=== PATIENT | male | born 1965 | race Caucasian/White ===

== ENCOUNTER 2017-03-19 16:11 | Inpatient (IN) | payer MEDICAID, OTHER ==
[~2017-03-19] VITALS: Ht 180.3 cm; Wt 135.1 kg
[2017-03-19] VITALS (16 sets, daily range): BP systolic 126–191; BP diastolic 78–120; PULSE 71–102; RESP 22–28; TEMP 98.6; Ht 180.3 cm; Wt 135.1 kg
[2017-03-19 16:43] LABS: AADO2 Arterial 70.1 mmHg (7.0-24.0); Allen Test ACCEPTAB; Arterial Base Excess 0.9 mmol/L (-3.0-3); Arterial COHb 3.3 % (0.0-3.0); Arterial Fraction of Oxyhgb 88.7 % (93.0-99.0); Arterial HCO3 31.6 mmol/L (22.0-26.0); Arterial MetHb 0.3 % (0.0-1.5); MODE NASAL CANNULA
[2017-03-19 16:48] LABS: BASOPHIL # 0.1 10^3/ul (0.0-0.1); BASOPHILS % 1.3 % (0.0-2.0); EOSINOPHILS # 0.2 10^3/ul (0.0-0.5); EOSINOPHILS % 3.6 % (0.0-7.0); HEMATOCRIT 47.1 % (42.0-52.0); LYMPHOCYTES # 1.4 10^3/ul (0.8-2.9); LYMPHOCYTES % 21.1 % (15.0-51.0); MEAN CORPUSCULAR HEMOGLOBIN 29.7 pg (29.0-33.0); MEAN CORPUSCULAR HGB CONC 31.8 g/dl (32.0-37.0); MEAN CORPUSCULAR VOLUME 93.3 fl (82.0-101.0); MEAN PLATELET VOLUME 11.4 fl (7.4-10.4); MONOCYTE # 0.3 10^3/ul (0.3-0.9); MONOCYTES % 5.1 % (0.0-11.0); NEUTROPHIL # 4.6 10^3/ul (1.6-7.5); NEUTROPHILS % 68.6 % (39.0-77.0); PLATELET COUNT 219 10^3/UL (140-415); RED BLOOD COUNT 5.05 10^6/ul (4.70-6.10); RED CELL DISTRIBUTION WIDTH 14.2 % (11.5-14.5); WHITE BLOOD COUNT 6.7 10^3/ul (4.8-10.8)
[2017-03-19 17:03] LABS: CALCIUM 8.5 mg/dl (8.4-10.2); CREATININE 2.66 mg/dl (0.61-1.24); POTASSIUM 4.5 mmol/L (3.5-5.1)
--- NOTE | 2017-03-19 17:41 | ERA ---
ER Documentation Chief Complaint Date/Time DATE: 03/19/17 TIME: 17:37 Chief Complaint LETHARGIC NOTED BY SISTER, SHORTNESS OF BREATH SATURATING AT 72% HPI This is a 51-year-old male who presents with his sister. It appears the patient has a history of COPD, oxygen dependence, sleep apnea, coronary disease. The patient has been visiting his mother in the hospital for the last several days and has not been using his BiPAP. He was somnolent and difficult to arouse per his sister and a code green was called. The patient was placed in room 1. The patient is very sleepy and difficult to stay awake. He denies any chest pain or significant shortness of breath. He denies any headache. No recent drug or alcohol. ROS All systems reviewed and are negative except as per history of present illness. Allergies Allergies: Coded Allergies: No Known Allergy (Unverified , 03/19/17) PMhx/Soc Hx Respiratory Disorders: Yes (copd, bipap) Hx Alcohol Use: No Hx Substance Use: No Hx Tobacco Use: Yes Smoking Status: Current every day smoker FmHx Family History: No diabetes Physical Exam Vitals Vital Signs Date Time Temp Pulse Resp B/P Pulse Ox O2 Delivery O2 Flow Rate FiO2 03/19/17 16:30 95 97 50 03/19/17 16:27 98.2 94 27 146/67 72 Physical Exam General: Somnolent, arousable but difficult to stay awake Head: Normocephalic, atraumatic. Eyes: Pupils equally reactive, EOM intact ENT: Moist mucous membranes Neck: Supple, no lymphadenopathy Respiratory: Lungs clear bilaterally, no distress Cardiovascular: RRR, no murmurs, rubs, or gallops Abdominal: Soft, non-tender, non-distended, no peritoneal signs : Deferred MSK: Chronic venous stasis dermatitis, bilateral lower extremity swelling it appears to be chronic, 5/5 strength Neurologic: Alert and oriented but difficult examination, moving all extremities , normal speech, no focal weakness, no cerebellar signs Skin: No rash Psych: Normal mood Result Diagram: 03/19/17 1640 03/19/17 1640 Results 24 hrs Laboratory Tests Test 03/19/17 16:13 03/19/17 16:40 03/19/17 16:41 Blood Gas Specimen Source Blood arterial Arterial Blood Date Drawn 03/19/2017 4:32:23 PM Arterial Blood pH (Temp corrected) 7.215 Arterial Blood pCO2 (Temp correct) 79.8mmhg Arterial Blood pO2 (Temp corrected) 72.0mmHG Arterial Blood HCO3 31.6mmol/L Arterial Blood Base Excess 0.9mmol/L Arterial Blood Oxygen Saturation 92.0mmHG Luis Armando Test ACCEPTAB Arterial Blood Gas Puncture Site Right Radial Arterial Blood Carboxyhemoglobin 3.3% Arterial Blood Methemoglobin 0.3% Blood Gas A-a O2 Differential 70.1mmHg Oxyhemoglobin Percent 88.7% Total Hemoglobin 16.0g/dl Blood Gas Temperature 37.0C Blood Gas Actual Respiration Rate 22 Blood Gas Modality NASAL CANNULA FiO2 33.0% Blood Gas Critical Value Read Back Dr. Velvet Shi Blood Gas Notified Whom Leander ARCINIEGA Blood Gas Notified Time 03/19/2017 4:43:34 PM White Blood Count 6.710^3/ul Red Blood Count 5.0510^6/ul Hemoglobin 15.0g/dl Hematocrit 47.1% Mean Corpuscular Volume 93.3fl Mean Corpuscular Hemoglobin 29.7pg Mean Corpuscular Hemoglobin Concent 31.8g/dl Red Cell Distribution Width 14.2% Platelet Count 03930^3/UL Mean Platelet Volume 11.4fl Neutrophils % 68.6% Lymphocytes % 21.1% Monocytes % 5.1% Eosinophils % 3.6% Basophils % 1.3% Nucleated Red Blood Cells % 0.0/100WBC Neutrophils # 4.610^3/ul Lymphocytes # 1.410^3/ul Monocytes # 0.310^3/ul Eosinophils # 0.210^3/ul Basophils # 0.110^3/ul Nucleated Red Blood Cells # 0.010^3/ul Sodium Level 145mmol/L Potassium Level 4.5mmol/L Chloride Level 102mmol/L Carbon Dioxide Level 32mmol/L Anion Gap 16 Blood Urea Nitrogen 23mg/dl Creatinine 2.66mg/dl Glucose Level 124mg/dl Calcium Level 8.5mg/dl Troponin I 0.063ng/ml Bedside Glucose 118mg/dL [facility] EKG, MONITORS, & DIAGNOSTIC IMAGING: EKG: I reviewed and interpreted a 12-lead EKG. Rhythm: Normal sinus rhythm Ectopy: None Intervals: No abnormalities ST segments: No elevations or depressions T waves: No contiguous inversions Chest x-ray: I reviewed and interpreted a 1 view of the chest Mediastinum: No enlargement Cardiac silhouette: No cardiomegaly Airspace: Clear lung sellers bilaterally without evidence of pneumothorax Bones: No evidence of fracture LAB INTERPRETATION: Negative troponin, hypercarbic respiratory acidosis MEDICAL DECISION MAKING: The patient presents with somnolence and lack of CPAP at home. His clinical exam is very consistent with hypercarbic respiratory failure and likely CO2 narcosis. A stat ABG was obtained and the patient was emergently placed on positive pressure ventilation. The patient is tolerating positive pressure ventilation well. The patient does not exhibit any signs or symptoms concerning for intoxication, intracranial hemorrhage, ACS. Laboratory testing initiated to facilitate hospitalization but low concern for these processes. ER COURSE: The patient seems to be tolerating positive pressure ventilation well. Repeat ABG to be obtained after clinical improvement. The patient will benefit from ICU level care to monitor his respiratory and mental status. I kept the patient and/or family informed of laboratory and diagnostic imaging results throughout the emergency room course. DISPOSITION PLAN: Intensive care unit placement for management of hypercarbic respiratory failure CONSULTATION: Accepting care team and consultations: I discussed the current laboratory data, diagnostic imaging and emergency care provided. Admitting team: Dr. Figueroa Admitting team indication: Insurance directed Critical Care Note: Total time: 57 minutes Indication/Organ System Threat: Hypercarbic respiratory failure I spent the above amount of critical care time with the patient, not including billable procedures. This included chart review, consultations, repeat bedside evaluations, and titration of appropriate medications to prevent cardiopulmonary or respiratory collapse. Departure Diagnosis: Primary Impression: Acute hypercapnic respiratory failure Additional Impressions: Acute encephalopathy Chronic renal insufficiency Qualified Code: N18.9 - Chronic renal insufficiency, unspecified stage Condition: Serious MUKESH SHI MD Mar 19, 2017 17:41
--- NOTE | 2017-03-19 18:22 | HP ---
Date/Time of Note Date/Time of Note DATE: 03/19/17 TIME: 18:22 Assessment/Plan VTE Prophylaxis VTE Prophylaxis Intervention: SCD's Assessment/Plan Assessment/Plan 51 yo M with obesity, DONALD on CPAP presents with somnolence/metabolic encephalopathy from CO2 narcosis in setting of CPAP nonadherence x 2 days plan continuous bipap and monitoring in ICU unable to obtain home meds list at this time NPO pending improvement in mentation Cr elevation: unclear if SHERINE +/- CKD check urine and urine lytes recheck labs in AM. if pt more awake will hopefully be able to provide more hx check renal US defer fluid challenge given tendency towards hypertension dvt prophx critical care time: 45 minutes HPI/ROS Admit Date/Time Admit Date/Time Hx of Present Illness hx obtained from ER/chart as pt quite sleepy at time of my attempted eval 51 yo M with pmhx DONALD supposed to be on CPAP presents with somnolence. Slept away from home past 2 nights and didn't bring his CPAP. In ER found to have significant respiratory acidosis, continuous BiPap started PMH/Family/Social Past Medical History DONALD on CPAP obesity ?CAD Social History Smoking Status: Current every day smoker Exam/Review of Systems Vital Signs Vitals Vital Signs Date Time Temp Pulse Resp B/P Pulse Ox O2 Delivery O2 Flow Rate FiO2 03/19/17 18:12 99 22 224/122 100 BIPAP 03/19/17 16:30 50 03/19/17 16:27 98.2 Exam Exam sleepy, sitting up in bed, follows some commands wearing bipap mmm no mrg +?sternotomy scar in mid chest lungs clear abd soft no rashes no le edema labs reviewed. respiratory acidosis with insufficient compensation Cr 2.6, baseline unk Labs Result Diagram: 03/19/17 1640 03/19/17 1640 Medications Medications Current Medications Hydralazine HCl (Apresoline) 20 mg ONCE ONCE IV ; Start 03/19/17 at 18:30; Stop 03/19/17 at 18:31 Acetaminophen (Tylenol Liquid) 650 mg Q6H PRN PO PAIN LEVEL 1-3 OR FEVER; Start 03/19/17 at 18:30; Status UNV Acetaminophen/ Hydrocodone Bitart ([place] (5/325)) 1 tab Q6H PRN PO PAIN LEVEL 4 -6; Start 03/19/17 at 18:30; Status UNV Docusate Sodium (Colace) 100 mg Q12H PRN PO CONSTIPATION; Start 03/19/17 at 18: 30; Status UNV Enoxaparin Sodium (Lovenox) 40 mg DAILY SC ; Start 03/20/17 at 09:00; Status UNV CHARMAINE REY MD Mar 19, 2017 18:22
[2017-03-19] MEDS ORDERED: ACETAMINOPHEN 650MG/20.3ML CUP PO PRN (18:30)
[2017-03-19] MEDS ORDERED: DOCUSATE SODIUM 100 MG CAP PO PRN (18:30)
[2017-03-19] MEDS ORDERED: FUROSEMIDE 40 MG INJ IV ONE (18:30)
[2017-03-19] MEDS ORDERED: NITROGLYCERIN 2% 1 GM OINT PKT TD ONE (18:30)
[2017-03-19] MEDS ORDERED: HYDROCODONE/APAP (5/325) TAB PO PRN (18:30)
[2017-03-19] MEDS ORDERED: hydrALAzine 20 MG INJ IV ONE (18:30)
[2017-03-19 18:56] LABS: AADO2 Arterial 69.9 mmHg (7.0-24.0); Allen Test ACCEPTAB; Arterial Base Excess 0.9 mmol/L (-3.0-3); Arterial COHb 2.8 % (0.0-3.0); Arterial Fraction of Oxyhgb 94.2 % (93.0-99.0); Arterial HCO3 30.1 mmol/L (22.0-26.0); Arterial MetHb 0.4 % (0.0-1.5); Arterial Total Hemglobin 16.7 g/dl (12.0-18.0); Blood Gas IEPAP 20/10; MODE MASK - BIPAP
--- NOTE | 2017-03-19 19:00 | RADRPT ---
PROCEDURE: XR Chest. CLINICAL INDICATION: Dyspnea TECHNIQUE: AP Portable chest. COMPARISON: None available FINDINGS: The soft tissues and bones are remarkable for status post median sternotomy and prior heart surgery. Moderate cardiomegaly and cardiogenic pulmonary venous hypertension is present. Incomplete evalua tion of the left lateral chest wall is noted. The appearance of obscuration of the left hemidiaphra gm is noted which may represent left pleural effusion or overlying soft tissue. No pneumothorax is present. IMPRESSION: 1. Status post median sternotomy and prior heart surgery. 2. Moderate cardiomegaly and cardiogenic pulmonary venous hypertension. 3. Left lower lobe atelectasis or consolidation. 4. Left pleural effusion versus soft tissue obscuring left lateral chest wall and costophrenic angl e. Recommend PA and lateral chest x-ray when the patient can tolerate. RPTAT: HDC .Cynthia Piper MD, Date Time Electronically viewed and signed by .Cynthia Piper MD, on 03/19/2017 18:59 .C/
[2017-03-19] MEDS ORDERED: NITROGLYCERIN 50 MG/D5W (PMX) 250 ML IV STA (19:02)
--- NOTE | 2017-03-19 19:25 | RADRPT ---
PROCEDURE: Retroperitoneal US. CLINICAL INDICATION: Renal insufficiency TECHNIQUE: Multiple sonographic images of the kidneys and retroperitoneum were obtained. The imag es were reviewed on a PACS workstation. COMPARISON: No prior studies are available for comparison. FINDINGS: Limited study due to the patient's body habitus. The kidneys are normal in size, contour, cortical thickness and cortical echogenicity. The right kidney measures 12.5 cm. The left kidney measures 12.1 cm. No kidney stones are visualized. There is no evidence for hydronephrosis. The urinary bladder is normal. RPTAT: AA IMPRESSION: Unremarkable retroperitoneal ultrasound. Limited study due to the patient's body habitus. .Judah Arceo MD, MD Date Time Electronically viewed and signed by .Judah Arceo MD, MD on 03/19/2017 19:24 .S/
[2017-03-19 19:50] LABS: Allen Test ACCEPTAB; Arterial Base Excess 2.1 mmol/L (-3.0-3); Arterial COHb 2.4 % (0.0-3.0); Arterial Fraction of Oxyhgb 94.5 % (93.0-99.0); Arterial HCO3 30.7 mmol/L (22.0-26.0); Arterial MetHb 0.4 % (0.0-1.5); Arterial Total Hemglobin 16.6 g/dl (12.0-18.0); Blood Gas IEPAP 20/10; MODE MASK - BIPAP
[2017-03-19] MEDS ORDERED: LOSA50TA6 PO (20:13)
[2017-03-19] MEDS ORDERED: FURO40TA4 PO (20:13)
[2017-03-19] MEDS ORDERED: GLIP5TAB13 PO (20:13)
[2017-03-19] MEDS ORDERED: CLOP75TA27 PO (20:14)
[2017-03-19] MEDS ORDERED: CARV25TA79 PO (20:14)
[2017-03-19] MEDS ORDERED: HYDR-3671 PO (20:14)
[2017-03-19] MEDS ORDERED: ISOSORBIDE PO (20:16)
[2017-03-20] VITALS (51 sets, daily range): BP systolic 115–165; BP diastolic 62–145; PULSE 63–106; RESP 12–30
[2017-03-20] LABS: AADO2 Arterial 80.8 mmHg (7.0-24.0); Allen Test ACCEPTAB; Arterial Base Excess 4.4 mmol/L (-3.0-3); Arterial COHb 1.9 % (0.0-3.0); Arterial Fraction of Oxyhgb 89.3 % (93.0-99.0); Arterial HCO3 32.1 mmol/L (22.0-26.0); Arterial MetHb 0.4 % (0.0-1.5); Arterial Total Hemglobin 15.1 g/dl (12.0-18.0); Blood Gas IEPAP 20/10; Blood Gas PS 10; MODE MASK - BIPAP
[2017-03-20] MEDS ORDERED: hydrALAzine 20 MG INJ IV PRN
[2017-03-20 03:09] LABS: ADD UMIC YES; UR ASCORBIC ACID NEGATIVE (NEGATIVE); UR BILIRUBIN (Dip) NEGATIVE (NEGATIVE); UR BLOOD (Dip) NEGATIVE (NEGATIVE); UR CLARITY CLEAR (CLEAR); UR COLOR STRAW (YELLOW); UR GLUCOSE (Dip) 1+ mg/dL (NEGATIVE); UR KETONES (Dip) NEGATIVE (NEGATIVE); UR LEUKOCYTE ESTERASE (Dip) NEGATIVE Leu/ul (NEGATIVE); UR NITRITE (Dip) NEGATIVE (NEGATIVE); UR RBC 0 /HPF (0-5); UR SPECIFIC GRAVITY (Dip) 1.009 (1.003-1.030); UR TOTAL PROTEIN (Dip) 3+ mg/dl (NEGATIVE); UR UROBILINOGEN (Dip) NEGATIVE (NEGATIVE)
[2017-03-20 05:42] LABS: CREATININE 2.54 mg/dl (0.61-1.24); POTASSIUM 4.3 mmol/L (3.5-5.1)
[2017-03-20 06:56] LABS: PHOSPHORUS 4.4 mg/dl (2.5-4.9)
[2017-03-20] MEDS: ENOXAPARIN 40 MG/0.4 ML SYG SC SCH (09:06)
[2017-03-20] MEDS: FUROSEMIDE 40 MG INJ IV SCH ×2 (09:08→17:15)
[2017-03-20] MEDS ORDERED: ALBUTEROL/IPRATROPIUM (NEB) 3 ML AMP HHN PRN (10:00)
--- NOTE | 2017-03-20 13:10 | PN ---
Date/Time of Note Date/Time of Note DATE: 03/20/17 TIME: 13:08 Assessment/Plan VTE Prophylaxis VTE Prophylaxis Intervention: SCD's Lines/Catheters IV Catheter Type (from Nrsg): Saline Lock Urinary Cath still in place: Yes Reason Cath still needed: other (indicate) (need stricts Is/oS) Assessment/Plan Assessment/Plan 51 yo M with obesity, DONALD on CPAP presents with somnolence/metabolic encephalopathy from CO2 narcosis in setting of CPAP nonadherence x 2 days and with likely acute on chronic systolic heart failure plan continuous bipap and monitoring in ICU NPO pending improvement in mentation cont high dose IV lasix for likely acute on chronic HF TTE ordered, results pending Cr elevation: suspect SHERINE on CKD TOOTIE unremarkable Need to check Fe Urea not FeNa as patient on lasix at home CAD hx: resume home arb, bb, isodril, plavix DM2 hx: hold SFU. check a1c. SSI with accuchecks dvt prophx critical care time: 45 minutes Subjective 24 Hr Interval Summary Free Text/Dictation Pt still somnolent and requiring continuous bipap. pH this AM significantly improved however. Also home meds list reviewed. Pt on CHF/CAD regimen at home Exam/Review of Systems Vital Signs Vitals Vital Signs Date Time Temp Pulse Resp B/P Pulse Ox O2 Delivery O2 Flow Rate FiO2 03/20/17 12:00 98.6 79 26 153/82 96 BIPAP 03/20/17 05:00 40 Intake and Output 03/19/17 03/19/17 03/20/17 15:00 23:00 07:00 Output Total 300 ml 450 ml Balance -300 ml -450 ml Exam nad, wearing bipap decreased breath sounds no mrg abd soft no rashes +LE edema Results Result Diagram: 03/19/17 1640 03/20/17 0400 Results 24 hrs Laboratory Tests Test 03/19/17 16:13 03/19/17 16:40 03/19/17 16:41 03/19/17 18:29 Blood Gas Specimen Source Blood arterial Blood arterial Arterial Blood Date Drawn 03/19/2017 4:32:23 PM 03/19/2017 6:43:26 PM Arterial Blood pH (Temp corrected) 7.215 *L 7.269 *L Arterial Blood pCO2 (Temp correct) 79.8 H 67.2 H Arterial Blood pO2 (Temp corrected) 72.0 L 101.5 H Arterial Blood HCO3 31.6 H 30.1 H Arterial Blood Base Excess 0.9 0.9 Arterial Blood Oxygen Saturation 92.0 L 97.3 Luis Armando Test ACCEPTAB ACCEPTAB Arterial Blood Gas Puncture Site Right Radial Right Radial Arterial Blood Carboxyhemoglobin 3.3 H 2.8 Arterial Blood Methemoglobin 0.3 0.4 Blood Gas A-a O2 Differential 70.1 H 69.9 H Oxyhemoglobin Percent 88.7 L 94.2 Total Hemoglobin 16.0 16.7 Blood Gas Temperature 37.0 37.0 Blood Gas Actual Respiration Rate 22 22 Blood Gas Modality NASAL CANNULA MASK - BIPAP FiO2 33.0 35.0 Blood Gas Critical Value Read Back Cheyenne Carson MD Blood Gas Notified Whom Leander BENTON Blood Gas Notified Time 03/19/2017 4:43:34 PM 03/19/2017 6:56:33 PM White Blood Count 6.7 Red Blood Count 5.05 Hemoglobin 15.0 Hematocrit 47.1 Mean Corpuscular Volume 93.3 Mean Corpuscular Hemoglobin 29.7 Mean Corpuscular Hemoglobin Concent 31.8 L Red Cell Distribution Width 14.2 Platelet Count 219 Mean Platelet Volume 11.4 H Neutrophils % 68.6 Lymphocytes % 21.1 Monocytes % 5.1 Eosinophils % 3.6 Basophils % 1.3 Nucleated Red Blood Cells % 0.0 Neutrophils # 4.6 Lymphocytes # 1.4 Monocytes # 0.3 Eosinophils # 0.2 Basophils # 0.1 Nucleated Red Blood Cells # 0.0 Sodium Level 145 H Potassium Level 4.5 Chloride Level 102 Carbon Dioxide Level 32 H Anion Gap 16 Blood Urea Nitrogen 23 H Creatinine 2.66 H Glucose Level 124 Calcium Level 8.5 Troponin I 0.063 B-Type Natriuretic Peptide 9030 H Bedside Glucose 118 Blood Gas Respiration Rate 15.0 Blood Gas Inspiratory Time 0.9 Blood Gas IPAP/EPAP Ratio 20/10 Test 03/19/17 19:30 03/20/17 00:00 03/20/17 02:27 03/20/17 04:00 Blood Gas Specimen Source Blood arterial Blood arterial Arterial Blood Date Drawn 03/19/2017 7:37:53 PM 03/19/2017 11:45:02 PM Arterial Blood pH (Temp corrected) 7.299 *L 7.339 L Arterial Blood pCO2 (Temp correct) 63.9 H 61.1 H Arterial Blood pO2 (Temp corrected) 97.3 61.3 L Arterial Blood HCO3 30.7 H 32.1 H Arterial Blood Base Excess 2.1 4.4 H Arterial Blood Oxygen Saturation 97.2 91.4 L Luis Armando Test ACCEPTAB ACCEPTAB Arterial Blood Gas Puncture Site Right Radial Right Radial Arterial Blood Carboxyhemoglobin 2.4 1.9 Arterial Blood Methemoglobin 0.4 0.4 Blood Gas A-a O2 Differential 78.0 H 80.8 H Oxyhemoglobin Percent 94.5 89.3 L Total Hemoglobin 16.6 15.1 Blood Gas Temperature 37.0 37.0 Blood Gas Respiration Rate 26.0 26.0 Blood Gas Actual Respiration Rate 28 29 Blood Gas Modality MASK - BIPAP MASK - BIPAP FiO2 35.0 30.0 Blood Gas Inspiratory Time 0.8 Blood Gas IPAP/EPAP Ratio 20/10 20 Blood Gas Critical Value Read Back Cheyenne FONTAINE MD Blood Gas Notified Whom AA UP Blood Gas Notified Time 03/19/2017 7:50:36 PM 03/19/2017 11:59:56 PM Blood Gas Pressure Support 10 Urine Color STRAW Urine Clarity CLEAR Urine pH 6.0 Urine Specific [place] 1.009 Urine Ketones NEGATIVE Urine Nitrite NEGATIVE Urine Bilirubin NEGATIVE Urine Urobilinogen NEGATIVE Urine Leukocyte Esterase NEGATIVE Urine Microscopic RBC 0 Urine Microscopic WBC 0 Urine Hemoglobin NEGATIVE Urine Random Creatinine 59.90 Urine Random Sodium 111 H Urine Glucose 1+ H Urine Total Protein 3+ H Sodium Level 144 Potassium Level 4.3 Chloride Level 103 Carbon Dioxide Level 31 Anion Gap 14 Blood Urea Nitrogen 23 H Creatinine 2.54 H Glucose Level 113 Calcium Level 8.0 L Phosphorus Level 4.4 Magnesium Level 2.0 Medications Medications Current Medications Acetaminophen (Tylenol Liquid) 650 mg Q6H PRN PO PAIN LEVEL 1-3 OR FEVER; Start 03/19/17 at 18:30 Acetaminophen/ Hydrocodone Bitart ([place] (5/325)) 1 tab Q6H PRN PO PAIN LEVEL 4 -6; Start 03/19/17 at 18:30 Docusate Sodium (Colace) 100 mg Q12H PRN PO CONSTIPATION; Start 03/19/17 at 18: 30 Enoxaparin Sodium (Lovenox) 40 mg DAILY SC Last administered on 03/20/17t 09:06 ; Admin Dose 40 MG; Start 03/20/17 at 09:00 Hydralazine HCl (Apresoline) 10 mg Q6H PRN IV ELEVATED BLOOD PRESSURE; Start at 00:00 CHARMAINE REY MD Mar 20, 2017 13:10
[2017-03-20] MEDS: ALBUTEROL/IPRATROPIUM (NEB) 3 ML AMP HHN SCH ×3 (13:50→20:16)
[2017-03-20] MEDS ORDERED: DEXTROSE 50% 50 ML SYRINGE IV PRN ×2 (14:00)
[2017-03-20] MEDS ORDERED: GLUCAGON 1 MG INJ IM PRN (14:00)
[2017-03-20] MEDS ORDERED: GLUCOSE GEL 15 GRAM TUBE BUCCAL PRN (14:00)
[2017-03-20] MEDS ORDERED: GLUCOSE GEL 15 GRAM TUBE PO PRN ×2 (14:00)
[2017-03-20 14:52] LABS: AADO2 Arterial 107.2 mmHg (7.0-24.0); Allen Test ACCEPTAB; Arterial Base Excess 1.9 mmol/L (-3.0-3); Arterial COHb 1.3 % (0.0-3.0); Arterial Fraction of Oxyhgb 92.9 % (93.0-99.0); Arterial HCO3 29.2 mmol/L (22.0-26.0); Arterial MetHb 0.4 % (0.0-1.5); Arterial Total Hemglobin 14.5 g/dl (12.0-18.0); Blood Gas IEPAP 20/10; Blood Gas PS 10; MODE MASK - BIPAP
--- NOTE | 2017-03-20 14:54 | RADRPT ---
Echocardiogram Report Patient Name: BRIDGET DELATORRE Gender: Male Date: 1965 Study Date: 20-Mar-2017 Crna: Gabriella Jackson RDCS Location: 117 Ref. Physician: CHARMAINE REY Quality: Adequate Procedures: Transthoracic echocardiogram with complete 2D, M-Mode, and doppler examination. Indications: elevated BNP and SOB, check EF. 2D/M Mode Doppler Measurement Value Normal Ranges Measurement Value Normal Ranges LVIDd 2D 6.4 3.5 - 5.6 cm AV Peak Td 1.8 m/sec LVIDs 2D 3.9 2.1 - 4.1 cm AV Peak PG 12.7 mmHg LVPWd 2D 1.3 0.6 - 1.1 cm LVOT Peak Td 1.3 m/sec IVSd 2D 1.2 0.6 - 1.1 cm LVOT Peak PG 6.5 mmHg AoR Diam 2D 2.7 2.0 - 3.7 cm MV E Peak Td 1.0 m/sec EDV 2D 208.7 cm3 MV A Peak Td 0.9 m/sec ESV 2D 61.6 cm3 MV E/A 1.2 LA Dimen 2D 5.8 2.3 - 4.0 cm MV Decel Time 173 msec MV Decel [place] 6 MV E/A 1.2 TR Peak Td 3.0 m/sec TR Peak PG 37.0 mmHg RVSP 52.0 mmHg Findings Left Ventricle: Mild concentric left ventricular hypertrophy. Moderate enlargement of left ventricle cavity. Mild to moderate global left ventricular systolic dysfunction. Ejection fraction is visually estimated at 40 %. Right Ventricle: Normal right ventricular size. Normal right ventricular systolic function. Left Atrium: There is moderate enlargement of left atrium. Right Atrium: The right atrium is normal in size. Mitral Valve: Mitral valve leaflets appear mildly thickened. Mild mitral annular calcification. Trace mitral regurgitation. Aortic Valve: Normal appearance of the aortic valve. No significant aortic stenosis or insufficiency. Tricuspid Valve: Normal appearance of the tricuspid valve. Estimated peak PA systolic pressure 57 mmHg. There is mild tricuspid regurgitation. Pulmonic Valve: Normal pulmonic valve appearance. Pericardium: Normal pericardium with no significant pericardial effusion. Aorta: Normal aortic root. IVC: Dilated IVC without respiratory collapse consistent with elevated right atrial pressure. Conclusions 1.Mild concentric left ventricular hypertrophy. Moderate enlargement of left ventricle cavity. Mild to moderate global left ventricular systolic dysfunction. Ejection fraction is visually estimated at 40 %. 2.Normal right ventricular size. Normal right ventricular systolic function. 3.There is moderate enlargement of left atrium. 4.The right atrium is normal in size. 5.Normal appearance of the tricuspid valve. Estimated peak PA systolic pressure 57 mmHg. There is mild tricuspid regurgitation. 6.No significant valvular stenosis or regurgitation seen of remaining visualized valves. 7.Normal pericardium with no significant pericardial effusion. Electronically Signed By: Ronald Grullon 20-Mar-2017 14:54:46 -0700 Patient Name: BRIDGET DELATORRE Study Date: 20-Mar-2017 [id number]
[2017-03-20] MEDS: INSULIN ASPART [NOVOLOG] 3 ML PEN SC SCH ×2 (17:00→20:31)
[2017-03-20] MEDS ORDERED: hydrALAzine 20 MG INJ ONE (18:02)
[2017-03-20] MEDS: LOSARTAN 50 MG TAB PO SCH (20:27)
[2017-03-21] VITALS (22 sets, daily range): BP systolic 110–161; BP diastolic 61–107; PULSE 55–78; RESP 13–26
[2017-03-21] MEDS: INSULIN ASPART [NOVOLOG] 3 ML PEN SC SCH (01:00)
[2017-03-21] MEDS: ALBUTEROL/IPRATROPIUM (NEB) 3 ML AMP HHN SCH ×6 (01:24→21:18)
[2017-03-21] MEDS ORDERED: ACCU-CHEK XX SCH (02:00)
[2017-03-21] MEDS: FUROSEMIDE 40 MG INJ IV SCH ×2 (06:24→17:36)
[2017-03-21 06:39] LABS: CALCIUM 8.2 mg/dl (8.4-10.2); CREATININE 3.06 mg/dl (0.61-1.24); POTASSIUM 4.2 mmol/L (3.5-5.1)
[2017-03-21] MEDS ORDERED: INSULIN ASPART [NOVOLOG] 3 ML PEN SC SCH (07:05)
[2017-03-21] MEDS: Insulin NOVOLOG SS MILD Algorithm (SS with meals and bedtime) SC SCH ×4 (07:35→21:00)
[2017-03-21 07:56] LABS: AADO2 Arterial 71.8 mmHg (7.0-24.0); Allen Test ACCEPTAB; Arterial Base Excess 6.8 mmol/L (-3.0-3); Arterial COHb 0.8 % (0.0-3.0); Arterial Fraction of Oxyhgb 88.7 % (93.0-99.0); Arterial MetHb 0.4 % (0.0-1.5); Arterial Total Hemglobin 14.3 g/dl (12.0-18.0); MODE NASAL CANNULA
[2017-03-21] MEDS: ISOSORBIDE MONONITRATE(SR)60 MG TAB PO SCH (09:11)
[2017-03-21] MEDS: LOSARTAN 50 MG TAB PO SCH ×2 (09:11→21:20)
[2017-03-21] MEDS: CLOPIDOGREL 75 MG TAB PO SCH (09:11)
[2017-03-21] MEDS: ENOXAPARIN 40 MG/0.4 ML SYG SC SCH (09:14)
--- NOTE | 2017-03-21 17:47 | PN ---
Date/Time of Note Date/Time of Note DATE: 03/21/17 TIME: 17:46 Assessment/Plan VTE Prophylaxis VTE Prophylaxis Intervention: SCD's Lines/Catheters IV Catheter Type (from Nrsg): Saline Lock Urinary Cath still in place: Yes Reason Cath still needed: other (indicate) (will dc) Assessment/Plan Assessment/Plan 51 yo M with obesity, DONALD on CPAP presents with somnolence/metabolic encephalopathy from CO2 narcosis in setting of CPAP nonadherence x 2 days and with likely acute on chronic systolic heart failure plan CPAP qHS cardiac diet change lasix to PO TTE with EF 40%. Cr elevation: suspect SHERINE on CKD TOOTIE unremarkable Given Cr slightly higher, will decrease lasix on this PO converseion CAD hx: resume home arb, bb, isodril, plavix DM2 hx: hold SFU. a1c 7.9. SSI with accuchecks dvt prophx critical care time: 30 minutes xfer from ICU to tele Subjective 24 Hr Interval Summary Free Text/Dictation Pt awake and appropriately interactive this AM. In addition to being without his CPAP past 3 days also didn't have his lasix with him Pt does not know his dry weight Exam/Review of Systems Vital Signs Vitals Vital Signs Date Time Temp Pulse Resp B/P Pulse Ox O2 Delivery O2 Flow Rate FiO2 03/21/17 17:02 69 03/21/17 16:24 2.0 03/21/17 16:22 20 94 Nasal Cannula 03/21/17 15:53 98.9 125/67 03/21/17 05:08 35 Intake and Output 03/20/17 03/20/17 03/21/17 15:00 23:00 07:00 Intake Total 200 ml Output Total 1415 ml 985 ml 415 ml Balance -1415 ml -785 ml -415 ml Exam nad, sitting up in bed no mrg lungs with decreased breath sounds bl bases abd soft LE edema improving Results Result Diagram: 03/19/17 1640 03/21/17 0530 Results 24 hrs Laboratory Tests Test 03/20/17 20:30 03/21/17 01:35 03/21/17 05:30 03/21/17 08:00 Bedside Glucose 195 126 Sodium Level 145 H Potassium Level 4.2 Chloride Level 102 Carbon Dioxide Level 33 H Anion Gap 14 Blood Urea Nitrogen 31 H Creatinine 3.06 H Glucose Level 112 Calcium Level 8.2 L Blood Gas Specimen Source Blood arterial Arterial Blood Date Drawn 03/21/2017 7:48:20 AM Arterial Blood pH (Temp corrected) 7.412 Arterial Blood pCO2 (Temp correct) 53.0 H Arterial Blood pO2 (Temp corrected) 58.0 L Arterial Blood HCO3 33.0 H Arterial Blood Base Excess 6.8 H Arterial Blood Oxygen Saturation 89.8 L Luis Armando Test ACCEPTAB Arterial Blood Gas Puncture Site Right Radial Arterial Blood Carboxyhemoglobin 0.8 Arterial Blood Methemoglobin 0.4 Blood Gas A-a O2 Differential 71.8 H Oxyhemoglobin Percent 88.7 L Total Hemoglobin 14.3 Blood Gas Temperature 37.0 Blood Gas Modality NASAL CANNULA FiO2 27.0 Blood Gas Notified Whom TM Blood Gas Notified Time 03/21/2017 7:55:52 AM Test 03/21/17 08:23 03/21/17 12:18 03/21/17 17:10 Bedside Glucose 117 131 172 Medications Medications Current Medications Acetaminophen (Tylenol Liquid) 650 mg Q6H PRN PO PAIN LEVEL 1-3 OR FEVER; Start 03/19/17 at 18:30 Acetaminophen/ Hydrocodone Bitart ([place] (5/325)) 1 tab Q6H PRN PO PAIN LEVEL 4 -6; Start 03/19/17 at 18:30 Docusate Sodium (Colace) 100 mg Q12H PRN PO CONSTIPATION; Start 03/19/17 at 18: 30 Enoxaparin Sodium (Lovenox) 40 mg DAILY SC Last administered on 03/21/17 09:14 ; Admin Dose 40 MG; Start 03/20/17 at 09:00 Hydralazine HCl (Apresoline) 10 mg Q6H PRN IV ELEVATED BLOOD PRESSURE Last administered on 03/20/17 15:43; Admin Dose 10 MG; Start 03/20/17 at 00:00 Carvedilol (Coreg) 25 mg BID PO Last administered on 03/21/17 09:12; Admin Dose 25 MG; Start 03/20/17 at 21:00 Clopidogrel Bisulfate (plaVIX) 75 mg DAILY PO Last administered on 03/21/17 09 :11; Admin Dose 75 MG; Start 03/21/17 at 09:00 Losartan Potassium (Cozaar) 50 mg BID PO Last administered on 03/21/17 09:11; Admin Dose 50 MG; Start 03/20/17 at 21:00 Isosorbide Mononitrate (Imdur) 240 mg DAILY PO Last administered on 03/21/17t 09:11; Admin Dose 240 MG; Start 03/21/17 at 09:00 Miscellaneous Information 1 ea NOTE XX ; Start 03/20/17 at 14:00 Glucose (Glutose) 15 gm Q15M PRN PO DECREASED GLUCOSE; Start 03/20/17 at 14:00 Glucose (Glutose) 22.5 gm Q15M PRN PO DECREASED GLUCOSE; Start 03/20/17 at 14: 00 Dextrose (D50w Syringe) 25 ml Q15M PRN IV DECREASED GLUCOSE; Start 03/20/17 at 14:00 Dextrose (D50w Syringe) 50 ml Q15M PRN IV DECREASED GLUCOSE; Start 03/20/17 at 14:00 Glucagon (Glucagen) 1 mg Q15M PRN IM DECREASED GLUCOSE; Start 03/20/17 at 14:00 Glucose (Glutose) 15 gm Q15M PRN BUCCAL DECREASED GLUCOSE; Start 03/20/17 at 14 :00 Diagnostic Test (Pha) (Accu-Chek) 1 ea 02 XX ; Start 03/22/17 at 02:00 CHARMAINE REY MD Mar 21, 2017 17:47
[2017-03-22] VITALS (14 sets, daily range): BP systolic 135–153; BP diastolic 70–82; PULSE 65–75; RESP 19–21
[2017-03-22] MEDS: ACCUCHECK AT 2AM (Patients on SS coverage) XX SCH ×2 (02:00→21:58)
[2017-03-22] MEDS: ALBUTEROL/IPRATROPIUM (NEB) 3 ML AMP HHN SCH ×6 (04:49→20:35)
[2017-03-22] MEDS: Insulin NOVOLOG SS MILD Algorithm (SS with meals and bedtime) SC SCH ×4 (07:55→20:50)
[2017-03-22] MEDS: ISOSORBIDE MONONITRATE(SR)60 MG TAB PO SCH (08:44)
[2017-03-22] MEDS: FUROSEMIDE 40 MG TAB PO SCH (08:44)
[2017-03-22] MEDS: CLOPIDOGREL 75 MG TAB PO SCH (08:45)
[2017-03-22] MEDS: LOSARTAN 50 MG TAB PO SCH ×2 (08:45→20:50)
[2017-03-22] MEDS: ENOXAPARIN 40 MG/0.4 ML SYG SC SCH (08:46)
[2017-03-22 09:24] LABS: CALCIUM 8.3 mg/dl (8.4-10.2); CREATININE 2.87 mg/dl (0.61-1.24); POTASSIUM 4.1 mmol/L (3.5-5.1)
--- NOTE | 2017-03-22 13:59 | PN ---
Date/Time of Note Date/Time of Note DATE: 03/22/17 TIME: 13:57 Assessment/Plan VTE Prophylaxis VTE Prophylaxis Intervention: SCD's Lines/Catheters IV Catheter Type (from Nrsg): Saline Lock Urinary Cath still in place: Yes Reason Cath still needed: other (indicate) (not needed) Assessment/Plan Assessment/Plan 51 yo M with obesity, DONALD on CPAP presents with somnolence/metabolic encephalopathy from CO2 narcosis in setting of CPAP nonadherence x 2 days and with likely acute on chronic systolic heart failure plan CPAP qHS cardiac diet cont PO lasix TTE with EF 40%. Cr elevation: suspect SHERINE on CKD TOOTIE unremarkable Cr a little better. Cont current lasix dose CAD hx: resume home arb, bb, isodril, plavix DM2 hx: hold SFU. a1c 7.9. SSI with accuchecks dvt prophx await euvolemia. 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 I have provided [facility] fax # to nurse Subjective 24 Hr Interval Summary Free Text/Dictation Pt uncertain whether or not he actually has a CHF hx. His PCP is Dr Miranda at [facility] in [place]. Also states he was hospitalized at [facility] for something related to his heart but does not recall what it was Exam/Review of Systems Vital Signs Vitals Vital Signs Date Time Temp Pulse Resp B/P Pulse Ox O2 Delivery O2 Flow Rate FiO2 03/22/17 12:33 84 18 95 Nasal Cannula 2.0 03/22/17 11:33 98.4 135/70 03/22/17 01:36 35 Intake and Output 03/21/17 03/21/17 03/22/17 15:00 23:00 07:00 Intake Total 720 ml 250 ml Output Total 1325 ml 650 ml Balance -605 ml -400 ml Exam nad no mrg lungs clear abd soft LEs with chronic venous stasis changes neg negative fluid balance Results Result Diagram: 03/19/17 1640 03/22/17 0659 Results 24 hrs Laboratory Tests Test 03/21/17 17:10 03/21/17 21:06 03/22/17 06:59 03/22/17 07:53 Bedside Glucose 172 137 97 Sodium Level 143 Potassium Level 4.1 Chloride Level 98 Carbon Dioxide Level 34 H Anion Gap 15 Blood Urea Nitrogen 35 H Creatinine 2.87 H Glucose Level 104 Calcium Level 8.3 L Magnesium Level 2.1 Test 03/22/17 11:16 Bedside Glucose 139 Medications Medications Current Medications Acetaminophen (Tylenol Liquid) 650 mg Q6H PRN PO PAIN LEVEL 1-3 OR FEVER; Start 03/19/17 at 18:30 Acetaminophen/ Hydrocodone Bitart ([place] (5/325)) 1 tab Q6H PRN PO PAIN LEVEL 4 -6; Start 03/19/17 at 18:30 Docusate Sodium (Colace) 100 mg Q12H PRN PO CONSTIPATION; Start 03/19/17 at 18: 30 Enoxaparin Sodium (Lovenox) 40 mg DAILY SC Last administered on 03/22/17 08:46 ; Admin Dose 40 MG; Start 03/20/17 at 09:00 Hydralazine HCl (Apresoline) 10 mg Q6H PRN IV ELEVATED BLOOD PRESSURE Last administered on 03/20/17 15:43; Admin Dose 10 MG; Start 03/20/17 at 00:00 Carvedilol (Coreg) 25 mg BID PO Last administered on 03/22/17 08:45; Admin Dose 25 MG; Start 03/20/17 at 21:00 Clopidogrel Bisulfate (plaVIX) 75 mg DAILY PO Last administered on 03/22/17 08 :45; Admin Dose 75 MG; Start 03/21/17 at 09:00 Losartan Potassium (Cozaar) 50 mg BID PO Last administered on 03/22/17 08:45; Admin Dose 50 MG; Start 03/20/17 at 21:00 Isosorbide Mononitrate (Imdur) 240 mg DAILY PO Last administered on 03/22/17 08:44; Admin Dose 240 MG; Start 03/21/17 at 09:00 Miscellaneous Information 1 ea NOTE XX ; Start 03/20/17 at 14:00 Glucose (Glutose) 15 gm Q15M PRN PO DECREASED GLUCOSE; Start 03/20/17 at 14:00 Glucose (Glutose) 22.5 gm Q15M PRN PO DECREASED GLUCOSE; Start 03/20/17 at 14: 00 Dextrose (D50w Syringe) 25 ml Q15M PRN IV DECREASED GLUCOSE; Start 03/20/17 at 14:00 Dextrose (D50w Syringe) 50 ml Q15M PRN IV DECREASED GLUCOSE; Start 03/20/17 at 14:00 Glucagon (Glucagen) 1 mg Q15M PRN IM DECREASED GLUCOSE; Start 03/20/17 at 14:00 Glucose (Glutose) 15 gm Q15M PRN BUCCAL DECREASED GLUCOSE; Start 03/20/17 at 14 :00 Diagnostic Test (Pha) (Accu-Chek) 1 ea 02 XX ; Start 03/22/17 at 02:00 Furosemide (Lasix) 40 mg DAILY PO Last administered on 03/22/17t 08:44; Admin Dose 40 MG; Start 03/22/17 at 09:00 CHARMAINE REY MD Mar 22, 2017 13:59
[2017-03-23] VITALS (16 sets, daily range): BP systolic 108–169; BP diastolic 58–87; PULSE 55–73; RESP 19–21
[2017-03-23] MEDS: ALBUTEROL/IPRATROPIUM (NEB) 3 ML AMP HHN SCH ×6 (01:25→20:02)
[2017-03-23] MEDS: Insulin NOVOLOG SS MILD Algorithm (SS with meals and bedtime) SC SCH ×4 (08:00→20:40)
[2017-03-23] MEDS: LOSARTAN 50 MG TAB PO SCH ×2 (08:15→20:46)
[2017-03-23] MEDS: ISOSORBIDE MONONITRATE(SR)60 MG TAB PO SCH (08:15)
[2017-03-23] MEDS: CLOPIDOGREL 75 MG TAB PO SCH (08:16)
[2017-03-23] MEDS: FUROSEMIDE 40 MG TAB PO SCH (08:16)
[2017-03-23] MEDS: ENOXAPARIN 40 MG/0.4 ML SYG SC SCH (08:19)
[2017-03-23 08:42] LABS: CALCIUM 8.6 mg/dl (8.4-10.2); CREATININE 2.76 mg/dl (0.61-1.24); MAGNESIUM 2.2 mg/dl (1.7-2.5); POTASSIUM 4.3 mmol/L (3.5-5.1)
--- NOTE | 2017-03-23 15:00 | PN ---
Date/Time of Note Date/Time of Note DATE: 03/23/17 TIME: 14:59 Assessment/Plan VTE Prophylaxis VTE Prophylaxis Intervention: other (scds) Lines/Catheters IV Catheter Type (from Nrsg): Saline Lock Urinary Cath still in place: Yes Reason Cath still needed: other (indicate) (not needed) Assessment/Plan Assessment/Plan 51 yo M with obesity, DONALD on CPAP presents with somnolence/metabolic encephalopathy from CO2 narcosis in setting of CPAP nonadherence x 2 days and with likely acute on chronic systolic heart failure plan CPAP qHS cardiac diet cont PO lasix TTE with EF 40%. Cr elevation: suspect SHERINE on CKD TOOTIE unremarkable Cr still improving. Cont current lasix dose CAD hx: cont home arb, bb, isodril, plavix DM2 hx: hold SFU. a1c 7.9. SSI with accuchecks dvt prophx await euvolemia. NU sent to [facility] yesterday to find out if pt has hx CHF Subjective 24 Hr Interval Summary Free Text/Dictation Still dieruesing well. does not know if he has a CHF hx. No records received from [facility]. Exam/Review of Systems Vital Signs Vitals Vital Signs Date Time Temp Pulse Resp B/P Pulse Ox O2 Delivery O2 Flow Rate FiO2 03/23/17 12:37 63 22 93 Nasal Cannula 3.0 03/23/17 11:51 98.2 108/58 03/23/17 03:25 35 Intake and Output 03/22/17 03/22/17 03/23/17 15:00 23:00 07:00 Intake Total 800 ml 250 ml Output Total 900 ml 800 ml Balance -100 ml -550 ml Exam nad, laying in bed no mrg lungs clear abd soft, obese LE edema continues to improve net 5L down since admission Results Result Diagram: 03/19/17 1640 03/23/17 0711 Results 24 hrs Laboratory Tests Test 03/22/17 17:01 03/22/17 20:49 03/23/17 07:11 03/23/17 08:06 Bedside Glucose 146 128 124 Sodium Level 142 Potassium Level 4.3 Chloride Level 100 Carbon Dioxide Level 31 Anion Gap 15 Blood Urea Nitrogen 34 H Creatinine 2.76 H Glucose Level 134 Calcium Level 8.6 Magnesium Level 2.2 Test 03/23/17 11:30 Bedside Glucose 171 Medications Medications Current Medications Acetaminophen (Tylenol Liquid) 650 mg Q6H PRN PO PAIN LEVEL 1-3 OR FEVER; Start 03/19/17 at 18:30 Acetaminophen/ Hydrocodone Bitart ([place] (5/325)) 1 tab Q6H PRN PO PAIN LEVEL 4 -6; Start 03/19/17 at 18:30 Docusate Sodium (Colace) 100 mg Q12H PRN PO CONSTIPATION; Start 03/19/17 at 18: 30 Enoxaparin Sodium (Lovenox) 40 mg DAILY SC Last administered on 03/23/17 08:19 ; Admin Dose 40 MG; Start 03/20/17 at 09:00 Hydralazine HCl (Apresoline) 10 mg Q6H PRN IV ELEVATED BLOOD PRESSURE Last administered on 03/20/17 15:43; Admin Dose 10 MG; Start 03/20/17 at 00:00 Carvedilol (Coreg) 25 mg BID PO Last administered on 03/23/17 08:16; Admin Dose 25 MG; Start 03/20/17 at 21:00 Clopidogrel Bisulfate (plaVIX) 75 mg DAILY PO Last administered on 03/23/17 08 :16; Admin Dose 75 MG; Start 03/21/17 at 09:00 Losartan Potassium (Cozaar) 50 mg BID PO Last administered on 03/23/17 08:15; Admin Dose 50 MG; Start 03/20/17 at 21:00 Isosorbide Mononitrate (Imdur) 240 mg DAILY PO Last administered on 03/23/17 08:15; Admin Dose 240 MG; Start 03/21/17 at 09:00 Miscellaneous Information 1 ea NOTE XX ; Start 03/20/17 at 14:00 Glucose (Glutose) 15 gm Q15M PRN PO DECREASED GLUCOSE; Start 03/20/17 at 14:00 Glucose (Glutose) 22.5 gm Q15M PRN PO DECREASED GLUCOSE; Start 03/20/17 at 14: 00 Dextrose (D50w Syringe) 25 ml Q15M PRN IV DECREASED GLUCOSE; Start 03/20/17 at 14:00 Dextrose (D50w Syringe) 50 ml Q15M PRN IV DECREASED GLUCOSE; Start 03/20/17 at 14:00 Glucagon (Glucagen) 1 mg Q15M PRN IM DECREASED GLUCOSE; Start 03/20/17 at 14:00 Glucose (Glutose) 15 gm Q15M PRN BUCCAL DECREASED GLUCOSE; Start 03/20/17 at 14 :00 Diagnostic Test (Pha) (Accu-Chek) 1 02 XX ; Start 03/22/17 at 02:00 Furosemide (Lasix) 40 mg DAILY PO Last administered on 03/23/17 08:16; Admin Dose 40 MG; Start 03/22/17 at 09:00 CHARMAINE REY MD Mar 23, 2017 15:00
[2017-03-24] VITALS (15 sets, daily range): BP systolic 132–159; BP diastolic 67–82; PULSE 56–74; RESP 16–20
[2017-03-24] MEDS: ALBUTEROL/IPRATROPIUM (NEB) 3 ML AMP HHN SCH ×6 (00:24→20:04)
[2017-03-24] MEDS: ACCUCHECK AT 2AM (Patients on SS coverage) XX SCH (02:00)
[2017-03-24] MEDS: Insulin NOVOLOG SS MILD Algorithm (SS with meals and bedtime) SC SCH ×4 (07:46→21:00)
[2017-03-24 08:47] LABS: CALCIUM 8.4 mg/dl (8.4-10.2); CREATININE 2.65 mg/dl (0.61-1.24); POTASSIUM 4.5 mmol/L (3.5-5.1)
[2017-03-24] MEDS: CLOPIDOGREL 75 MG TAB PO SCH (08:56)
[2017-03-24] MEDS: FUROSEMIDE 40 MG TAB PO SCH (08:56)
[2017-03-24] MEDS: ISOSORBIDE MONONITRATE(SR)60 MG TAB PO SCH (08:56)
[2017-03-24] MEDS: LOSARTAN 50 MG TAB PO SCH ×2 (08:57→21:22)
[2017-03-24] MEDS: ENOXAPARIN 40 MG/0.4 ML SYG SC SCH (08:59)
--- NOTE | 2017-03-24 16:36 | PN ---
Date/Time of Note Date/Time of Note DATE: 03/24/17 TIME: 16:34 Assessment/Plan VTE Prophylaxis VTE Prophylaxis Intervention: SCD's Lines/Catheters IV Catheter Type (from Nrsg): Saline Lock Urinary Cath still in place: Yes Reason Cath still needed: other (indicate) Assessment/Plan Assessment/Plan 51 yo M with obesity, DONALD on CPAP presents with somnolence/metabolic encephalopathy from CO2 narcosis in setting of CPAP nonadherence x 2 days and with likely acute on chronic systolic heart failure plan CPAP qHS cardiac diet cont PO lasix TTE with EF 40%. Cr elevation: suspect SHERINE on CKD TOOTIE unremarkable Cr stable CAD hx: cont home arb, bb, isodril, plavix DM2 hx: hold SFU. a1c 7.9. SSI with accuchecks dvt prophx await euvolemia. NU sent to [place] yesterday to find out if pt has hx CHF anticipate discharge in AM Subjective 24 Hr Interval Summary Free Text/Dictation Still diuresing. Not yet back to baseline. Doesn't like wearing his CPAP but knows he should Exam/Review of Systems Vital Signs Vitals Vital Signs Date Time Temp Pulse Resp B/P Pulse Ox O2 Delivery O2 Flow Rate FiO2 03/24/17 16:18 59 03/24/17 16:07 98.4 16 147/68 93 03/24/17 14:17 21 03/24/17 09:44 Nasal Cannula 3.0 Intake and Output 03/23/17 03/23/17 03/24/17 15:00 23:00 07:00 Intake Total 400 ml Output Total 750 ml Balance -350 ml Exam weight: down >5L since admisison nad, sitting up in bed no mrg lungs clear abd soft no rashes Results Result Diagram: 03/24/17 0721 Results 24 hrs Laboratory Tests Test 03/23/17 17:15 03/23/17 20:29 03/24/17 07:21 03/24/17 07:44 Bedside Glucose 140 120 109 Sodium Level 145 H Potassium Level 4.5 Chloride Level 101 Carbon Dioxide Level 34 H Anion Gap 15 Blood Urea Nitrogen 34 H Creatinine 2.65 H Glucose Level 97 Calcium Level 8.4 Magnesium Level 2.2 Test 03/24/17 11:52 Bedside Glucose 139 Medications Medications Current Medications Acetaminophen (Tylenol Liquid) 650 mg Q6H PRN PO PAIN LEVEL 1-3 OR FEVER; Start 03/19/17 at 18:30 Acetaminophen/ Hydrocodone Bitart ([place] (5/325)) 1 tab Q6H PRN PO PAIN LEVEL 4 -6; Start 03/19/17 at 18:30 Docusate Sodium (Colace) 100 mg Q12H PRN PO CONSTIPATION; Start 03/19/17 at 18: 30 Enoxaparin Sodium (Lovenox) 40 mg DAILY SC Last administered on 03/24/17 08:59 ; Admin Dose 40 MG; Start 03/20/17 at 09:00 Hydralazine HCl (Apresoline) 10 mg Q6H PRN IV ELEVATED BLOOD PRESSURE Last administered on 03/20/17 15:43; Admin Dose 10 MG; Start 03/20/17 at 00:00 Carvedilol (Coreg) 25 mg BID PO Last administered on 03/24/17 08:57; Admin Dose 25 MG; Start 03/20/17 at 21:00 Clopidogrel Bisulfate (plaVIX) 75 mg DAILY PO Last administered on 03/24/17 08 :56; Admin Dose 75 MG; Start 03/21/17 at 09:00 Losartan Potassium (Cozaar) 50 mg BID PO Last administered on 03/24/17 08:57; Admin Dose 50 MG; Start 03/20/17 at 21:00 Isosorbide Mononitrate (Imdur) 240 mg DAILY PO Last administered on 03/24/17 08:56; Admin Dose 240 MG; Start 03/21/17 at 09:00 Miscellaneous Information 1 ea NOTE XX ; Start 03/20/17 at 14:00 Glucose (Glutose) 15 gm Q15M PRN PO DECREASED GLUCOSE; Start 03/20/17 at 14:00 Glucose (Glutose) 22.5 gm Q15M PRN PO DECREASED GLUCOSE; Start 03/20/17 at 14: 00 Dextrose (D50w Syringe) 25 ml Q15M PRN IV DECREASED GLUCOSE; Start 03/20/17 at 14:00 Dextrose (D50w Syringe) 50 ml Q15M PRN IV DECREASED GLUCOSE; Start 03/20/17 at 14:00 Glucagon (Glucagen) 1 mg Q15M PRN IM DECREASED GLUCOSE; Start 03/20/17 at 14:00 Glucose (Glutose) 15 gm Q15M PRN BUCCAL DECREASED GLUCOSE; Start 03/20/17 at 14 :00 Diagnostic Test (Pha) (Accu-Chek) 1 ea 02 XX ; Start 03/22/17 at 02:00 Furosemide (Lasix) 40 mg DAILY PO Last administered on 03/24/17 08:56; Admin Dose 40 MG; Start 03/22/17 at 09:00 Procedures Procedures Cr without sig change CHARMAINE REY MD Mar 24, 2017 16:36
[2017-03-25] VITALS (10 sets, daily range): BP systolic 138–157; BP diastolic 68–83; PULSE 59–72; RESP 17–20
[2017-03-25] MEDS: ACCUCHECK AT 2AM (Patients on SS coverage) XX SCH (02:00)
[2017-03-25] MEDS: ALBUTEROL/IPRATROPIUM (NEB) 3 ML AMP HHN SCH ×4 (05:06→13:00)
[2017-03-25] MEDS: Insulin NOVOLOG SS MILD Algorithm (SS with meals and bedtime) SC SCH ×3 (08:23→17:50)
[2017-03-25] MEDS: ISOSORBIDE MONONITRATE(SR)60 MG TAB PO SCH (08:25)
[2017-03-25] MEDS: LOSARTAN 50 MG TAB PO SCH (08:26)
[2017-03-25] MEDS: CLOPIDOGREL 75 MG TAB PO SCH (08:27)
[2017-03-25] MEDS: FUROSEMIDE 40 MG TAB PO SCH (08:27)
[2017-03-25] MEDS: ENOXAPARIN 40 MG/0.4 ML SYG SC SCH (08:29)
--- NOTE | 2017-03-25 10:16 | PDOCDIS ---
Discharge Instructions CONDITION Patient Condition: Stable HOME CARE INSTRUCTIONS: Diet Instructions: Low Fat /Cholesterol ACTIVITY: Activity Restrictions: Slowly Increase Activity FOLLOW UP/APPOINTMENTS Follow-up Plan Please take your medicines as prescribed. Please also use your CPAP machine at night as indicated. Please follow-up with your primary doctor in the clinic in the next 1-2 weeks. CHOCO MONTOYA Mar 25, 2017 10:16
--- NOTE | 2017-03-25 10:19 | DS ---
Date/Time of Note Date/Time of Note DATE: 03/25/17 TIME: 10:18 Discharge Summary Admission/Discharge Info Admit Date/Time Mar 19, 2017 at 17:25 Discharge Date/Time Patient Condition: Stable Hx of Present Illness Hospital Course 51 yo M with pmhx DONALD supposed to be on CPAP presents with somnolence. Slept away from home past 2 nights and didn't bring his CPAP. In ER found to have significant respiratory acidosis, continuous BiPap started there. Patient was admitted to telemetry floor, was given CPAP at night, and continued on his cardiac medications. Over the course of his hospital stay his shortness of breath symptoms improved, he became less somnolent, able to ambulate, and tolerated p.o. diet. He is waiting for physical therapy eval today, once the recommendations are made, and once ed case manager has set up renewal of his home oxygen tanks, he will be discharged home later today in improved condition. We see discharge list of medications below for full list of discharge medications. Home Meds Reported Medications [Isosorbide] No Conflict Check, 1 TAB PO BID 03/19/17 Carvedilol* (Carvedilol*) 25 Mg Tablet, 25 MG PO BID, #60 TAB 03/19/17 Hydralazine Hcl* (Hydralazine Hcl*) 25 Mg Tab, 25 MG PO Q8 Y for PRN, #90 TAB 03/19/17 Clopidogrel Bisulfate (Clopidogrel) 75 Mg Tablet, 75 MG PO DAILY, #30 TAB 03/19/17 Glipizide* (Glipizide*) 5 Mg Tablet, 5 MG PO AC BREAKFAST DINNER, TAB 03/19/17 Losartan Potassium* (Losartan Potassium*) 50 Mg Tablet, 50 MG PO BID, TAB 03/19/17 Furosemide* (Furosemide*) 40 Mg Tablet, 40 MG PO BID, TAB if needed take tid 03/19/17 Primary Care Provider Not On Staff Doctor Time spent on discharge: > 30 minutes Pending Labs Laboratory Tests Test 03/24/17 11:52 03/24/17 17:19 03/24/17 20:44 03/25/17 02:14 Bedside Glucose 139mg/dL (70-220) 185mg/dL (70-220) 143mg/dL (70-220) 132mg/dL (70-220) Test 03/25/17 08:19 Bedside Glucose 177mg/dL (70-220) CHOCO MONTOYA Mar 25, 2017 10:19
== END 2017-03-25 18:59 | disposition home or self-care (01) | DRG 291 ==
LOC: E/R 16:11 → ICU 17:25 → MS4 03-21 15:25
PROVIDERS: ADMIT Internal Medicine; ATTEND Internal Medicine
PROC: 5A09357 Assistance with Respiratory Ventilation, Less than 24 Consecutive Hours, Continuous Positive Airway Pressure (ICD-10-PCS; principal; 2017-03-19)
DX: I50.23 Acute on chronic systolic (congestive) heart failure (principal); J96.02 Acute respiratory failure with hypercapnia; G93.41 Metabolic encephalopathy; N17.9 Acute kidney failure, unspecified; E87.2 Acidosis; Z68.41 Body mass index [BMI] 40.0-44.9, adult; J44.9 Chronic obstructive pulmonary disease, unspecified; E11.22 Type 2 diabetes mellitus with diabetic chronic kidney disease; N18.9 Chronic kidney disease, unspecified; F17.210 Nicotine dependence, cigarettes, uncomplicated; Z99.81 Dependence on supplemental oxygen; I25.10 Atherosclerotic heart disease of native coronary artery without angina pectoris; E66.01 Morbid (severe) obesity due to excess calories; G47.33 Obstructive sleep apnea (adult) (pediatric); Z79.4 Long term (current) use of insulin
CPT/HCPCS: 36415; 36600; 71010; 76775; 80048; 81001; 81003; 82540; 82803; 82962; 83036; 83735; 83880; 84100; 84155; 84300; 84484; 85025; 87081; 87086; 93005; 93306; 94640; 94660; 94664; 96374; 96375; 97163; J0360; J1650; J1815; J1940

== ENCOUNTER 2017-04-08 16:15 | Inpatient (IN) | payer MEDICAID, OTHER ==
[~2017-04-08] VITALS: Ht 177.8 cm; Wt 135.0 kg
[~2017-04-08 16:15] MED LIST: CARV25TA79 PO; CLOP75TA27 PO; FURO40TA4 PO; GLIP5TAB13 PO; HYDR-3671 PO; ISOSORBIDE PO; LOSA50TA6 PO
[2017-04-08] MEDS ORDERED: ALBUTEROL 0.083% (NEB) 2.5 MG/3 ML AMP HHN STA (18:52)
[2017-04-08] MEDS ORDERED: IPRATROPIUM (NEB) 0.5 MG/2.5 ML AMP HHN ONE (19:00)
--- NOTE | 2017-04-08 19:01 | RADRPT ---
PROCEDURE: Chest 1 views. CLINICAL INDICATION: Chest pain TECHNIQUE: AP views of the chest was obtained. COMPARISON: March 19, 2017 FINDINGS: The heart is large. Median sternotomy wires overlie the heart. Central pulmonary vascular congestio n and interstitial prominence is seen in both lungs. Small bilateral pleural effusions with associat ed basilar atelectasis are observed. Osseous structures are intact. IMPRESSION: Cardiomegaly . Central pulmonary vascular congestion and interstitial prominence is seen in both lungs. Small bilateral pleural effusions with associated basilar atelectasis. RPTAT: AA .Bernardo Jacques MD, MD Date Time Electronically viewed and signed by .Bernardo Jacques MD, on 04/08/2017 19:00 .P/
[2017-04-08 19:07] LABS: AADO2 Arterial 6.3 mmHg (7.0-24.0); Allen Test ACCEPTAB; Arterial Base Excess 2.5 mmol/L (-3.0-3); Arterial Fraction of Oxyhgb 89.3 % (93.0-99.0); Arterial HCO3 32.2 mmol/L (22.0-26.0); Arterial MetHb 0.2 % (0.0-1.5); Arterial Total Hemglobin 15.1 g/dl (12.0-18.0); MODE NASAL CANNULA
[2017-04-08 19:29] LABS: BASOPHIL # 0.1 10^3/ul (0.0-0.1); BASOPHILS % 0.9 % (0.0-2.0); EOSINOPHILS # 0.4 10^3/ul (0.0-0.5); EOSINOPHILS % 5.2 % (0.0-7.0); HEMATOCRIT 43.8 % (42.0-52.0); LYMPHOCYTES # 1.6 10^3/ul (0.8-2.9); LYMPHOCYTES % 20.6 % (15.0-51.0); MEAN CORPUSCULAR HEMOGLOBIN 29.2 pg (29.0-33.0); MEAN CORPUSCULAR VOLUME 91.4 fl (82.0-101.0); MEAN PLATELET VOLUME 11.4 fl (7.4-10.4); MONOCYTE # 0.4 10^3/ul (0.3-0.9); MONOCYTES % 5.6 % (0.0-11.0); NEUTROPHILS % 67.4 % (39.0-77.0); PLATELET COUNT 242 10^3/UL (140-415); RED BLOOD COUNT 4.79 10^6/ul (4.70-6.10); RED CELL DISTRIBUTION WIDTH 13.8 % (11.5-14.5); WHITE BLOOD COUNT 7.7 10^3/ul (4.8-10.8)
[2017-04-08 19:42] LABS: INR 0.97; PROTIME 12.9 Sec (12.2-14.2)
[2017-04-08 19:43] LABS: PARTIAL THROMBOPLASTIN TIME 32.4 Sec (25.0-35.0)
[2017-04-08 19:44] LABS: CALCIUM 8.6 mg/dl (8.4-10.2); CREATININE 2.46 mg/dl (0.61-1.24); POTASSIUM 4.8 mmol/L (3.5-5.1)
[2017-04-08 19:57] LABS: TROPONIN-I 0.074 ng/ml (0.00-0.12)
--- NOTE | 2017-04-08 19:57 | ERA ---
ER Documentation Chief Complaint Date/Time DATE: 04/08/17 TIME: 19:49 Chief Complaint Pt with SOB X 1 hour, hx of CABG, CHF and copd. HPI This 51-year-old male presented with shortness of breath for an hour. Has left- sided chest pain but it is chronic in nature and he has had it since he had heart surgery. Has been feeling increasingly short of breath and it came on suddenly. He is not sure if it feels more like his COPD or CHF causing this episode. He has had no fevers or chills. States that he has been using his CPAP each night. ROS All systems reviewed and are negative except as per history of present illness. Medications Home Meds Reported Medications [Isosorbide] No Conflict Check, 1 TAB PO BID 03/19/17 Carvedilol* (Carvedilol*) 25 Mg Tablet, 25 MG PO BID, #60 TAB 03/19/17 Hydralazine Hcl* (Hydralazine Hcl*) 25 Mg Tab, 25 MG PO Q8 Y for PRN, #90 TAB 03/19/17 Clopidogrel Bisulfate (Clopidogrel) 75 Mg Tablet, 75 MG PO DAILY, #30 TAB 03/19/17 Glipizide* (Glipizide*) 5 Mg Tablet, 5 MG PO AC BREAKFAST DINNER, TAB 03/19/17 Losartan Potassium* (Losartan Potassium*) 50 Mg Tablet, 50 MG PO BID, TAB 03/19/17 Furosemide* (Furosemide*) 40 Mg Tablet, 40 MG PO BID, TAB if needed take tid 03/19/17 Allergies Allergies: Coded Allergies: No Known Allergy (Unverified , 04/08/17) PMhx/Soc Hx Respiratory Disorders: Yes Hx Cardiac Disorders: Yes (CAD, heart failure, CABG) Hx Miscellaneous Medical Probl: Yes (Obesity,CPAP,DM,htn,SHERINE) Hx Alcohol Use: Yes Hx Substance Use: No Hx Tobacco Use: Yes Smoking Status: Current every day smoker Physical Exam Vitals Vital Signs Date Time Temp Pulse Resp B/P Pulse Ox O2 Delivery O2 Flow Rate FiO2 04/08/17 19:23 89 100 50 04/08/17 19:10 Nasal Cannula 2.0 04/08/17 19:10 93 22 90 Nasal Cannula 1.0 04/08/17 19:08 Nasal Cannula 2 04/08/17 16:25 98.1 70 26 164/104 97 Physical Exam Const: [] Moderate distress, unable to speak in full sentences Head: Atraumatic Eyes: Normal Conjunctiva ENT: Normal External Ears, Nose and Mouth. Neck: Full range of motion..~ No meningismus. Resp: Decreased bibasilar breath sounds with tachypnea and mild accessory muscle use, no audible wheezing Cardio: Regular tachycardia, no murmurs Abd: Soft, non tender, mildly distended, positive fluid wave. Normal bowel sounds Skin: No petechiae or rashes Back: No midline or flank tenderness Ext: No cyanosis, 3+ pitting edema with apparent venous stasis changes, no calor. Distal pulses intact Neur: Awake and alert and oriented 3, no focal deficit Psych: Somewhat anxious Result Diagram: 04/08/17190604/08/171906 Results 24 hrs Laboratory Tests Test 04/08/17 18:38 04/08/17 19:07 Blood Gas Specimen Source Blood arterial Arterial Blood Date Drawn 04/08/2017 7:00:41 PM Arterial Blood pH (Temp corrected) 7.255 Arterial Blood pCO2 (Temp correct) 74.2mmhg Arterial Blood pO2 (Temp corrected) 69.2mmHG Arterial Blood HCO3 32.2mmol/L Arterial Blood Base Excess 2.5mmol/L Arterial Blood Oxygen Saturation 92.3mmHG Luis Armando Test ACCEPTAB Arterial Blood Gas Puncture Site Right Brachial Arterial Blood Carboxyhemoglobin 3.0% Arterial Blood Methemoglobin 0.2% Blood Gas A-a O2 Differential 6.3mmHg Oxyhemoglobin Percent 89.3% Total Hemoglobin 15.1g/dl Blood Gas Temperature 37.0C Blood Gas Modality NASAL CANNULA FiO2 23.0% Blood Gas Critical Value Read Back All FLOWERS DO Blood Gas Notified Whom Blood Gas Notified Time 04/08/2017 7:07:20 PM White Blood Count 7.710^3/ul Red Blood Count 4.7910^6/ul Hemoglobin 14.0g/dl Hematocrit 43.8% Mean Corpuscular Volume 91.4fl Mean Corpuscular Hemoglobin 29.2pg Mean Corpuscular Hemoglobin Concent 32.0g/dl Red Cell Distribution Width 13.8% Platelet Count 82742^3/UL Mean Platelet Volume 11.4fl Neutrophils % 67.4% Lymphocytes % 20.6% Monocytes % 5.6% Eosinophils % 5.2% Basophils % 0.9% Nucleated Red Blood Cells % 0.0/100WBC Neutrophils # (Manual) 5.210^3/ul Lymphocytes # 1.610^3/ul Monocytes # 0.410^3/ul Eosinophils # 0.410^3/ul Basophils # 0.110^3/ul Nucleated Red Blood Cells # 0.010^3/ul Prothrombin Time 12.9Sec Prothrombin Time Ratio 1.0 INR International Normalized Ratio 0.97 Activated Partial Thromboplast Time 32.4Sec Sodium Level 143mmol/L Potassium Level 4.8mmol/L Chloride Level 98mmol/L Carbon Dioxide Level 34mmol/L Anion Gap 16 Blood Urea Nitrogen 27mg/dl Creatinine 2.46mg/dl Glucose Level 148mg/dl Calcium Level 8.6mg/dl Troponin I Pending B-Type Natriuretic Peptide Pending Current Medications Medications (Trade) Dose Ordered Sig/Chi Route PRN Reason Start Time Stop Time Status Last Admin Dose Admin Albuterol (Proventil 0.083% (Neb)) 5 mg ONCE STAT N 04/08/17 18:52 04/08/17 18:53 DC 04/08/17 19:04 Ipratropium [place] (Atrovent 0.02% (Neb)) 0.5 mg ONCE ONCE HHN 04/08/17 19:00 04/08/17 19:01 DC 04/08/17 19:03 Labetalol HCl (Labetalol) 20 mg ONCE ONCE IV 04/08/17 20:00 04/08/17 20:01 04/08/17 19:35 Procedures/MDM Respiratory failure and a sleep apnea patient with congestive heart failure accelerated hypertension. Possible contribution from COPD. Patient was given a breathing treatment with BiPAP and she was put on immediately. He was given labetalol for his severe hypertension. Condition did improve on BiPAP in the emergency room. Patient also has anasarca. Renal insufficiency with creatinine at baseline. Given Lasix and nitroglycerin sublingual as well. He is being admitted to telemetry. Dr. jacobs is admitting. EKG interpretation: Normal sinus rhythm rate of 85, T-wave inversions in the lateral leads with T-wave flattening and inferior leads. This is present on prior EKG last month. Normal axis, mild QT prolongation of 492 monitor and storage bin tender interpretation: Initial sinus tachycardia followed by normal sinus rhythm. No other arrhythmias Medical care time 47 minutes: This includes treatment of hypercarbic respiratory failure, use of noninvasive positive pressure ventilation, multiple incisions bedside to reassess status, treatment of unstable vital signs, review of chart, discussion with patient and admitting doctor. This does not include any billable procedures Departure Diagnosis: Primary Impression: Hypercapnic respiratory failure Additional Impressions: CHF (congestive heart failure) Hypertensive crisis Condition: Serious LEANNA FLOWERS DO Apr 08, 2017 19:57
[2017-04-08] MEDS ORDERED: NITROGLYCERIN (SL) 0.4 MG TAB SL ONE (20:00)
[2017-04-08] MEDS ORDERED: LABETALOL HCL 20MG INJ IV ONE (20:00)
[2017-04-08] MEDS ORDERED: ONDANSETRON 4 MG INJ IV PRN (20:30)
[2017-04-08] MEDS ORDERED: ACETAMINOPHEN 325 MG TAB PO PRN (20:30)
[2017-04-08 20:56] VITALS: PULSE 71; PULSE 78
[2017-04-08 21:10] VITALS: PULSE 90
[2017-04-08 21:15] VITALS: BP 172/98; PULSE 76; RESP 20; Ht 177.8 cm; Wt 135.0 kg
[2017-04-08 21:18] VITALS: BP 186/113; RESP 22
[2017-04-08 22:33] LABS: AADO2 Arterial 149.4 mmHg (7.0-24.0); Allen Test ACCEPTAB; Arterial Base Excess 1.1 mmol/L (-3.0-3); Arterial COHb 2.2 % (0.0-3.0); Arterial Fraction of Oxyhgb 94.3 % (93.0-99.0); Arterial MetHb 0.3 % (0.0-1.5); Arterial Total Hemglobin 15.1 g/dl (12.0-18.0); Blood Gas IEPAP 15/5; Blood Gas PS 10; MODE MASK - BIPAP
[2017-04-08] MEDS ORDERED: hydrALAzine 20 MG INJ ONE (22:40)
[2017-04-08] MEDS: FUROSEMIDE 40 MG INJ IV SCH (23:00)
[2017-04-08 23:34] VITALS: RESP 20
[2017-04-08] MEDS ORDERED: PROPOFOL 100 ML ONE (23:40)
--- NOTE | 2017-04-08 23:50 | HP ---
Date/Time of Note Date/Time of Note DATE: 04/08/17 TIME: 23:50 Assessment/Plan VTE Prophylaxis VTE Prophylaxis Intervention: heparin Lines/Catheters IV Catheter Type (from Nrsg): Peripheral IV Assessment/Plan Assessment/Plan 1. Hypercapnic and hypoxic respiratory failure, s/p intubation -Continue ICU monitoring -Continue ventilator support, breathing treatments, steroid, antibiotic and diuretics -Pulmonary and a cardiology consult will be placed 2. CAD with history of CABG -Continue home medications including his Plavix -Cardiology consult 3. Ischemic cardiomyopathy with systolic dysfunction, with EF of 40% per recent 2D echo 2 weeks ago -Continue home cardiac medications 4. Acute CHF exacerbation, systolic -Continue diuretic and vent support -Continue home cardiac medications 5. History of diabetes: recent A1c 7.9 -Insulin while in house 6. Obstructive sleep apnea: Currently intubated -Continue vent support. Will place a pulmonary consult 7. Hypertension: BP not at goal -Continue home meds with adjustment as needed 8. CKD: Stable -Avoid nephrotoxins -Nephrology consult HPI/ROS Admit Date/Time Admit Date/Time Apr 08, 2017 at 20:17 Hx of Present Illness This is a 51-year-old morbidly obese male with a history of CAD, CABG, DONALD on home CPAP, hypertension, diabetes and a probable COPD who presented to the emergency department complaining of shortness of breath. Patient was admitted here recently for shortness of breath and was actually discharged 2 weeks ago. At that time he was treated with positive ventilation, breathing treatments and steroids. When patient presented to the ER today, ABG shows a pH of 7.25, PCO2 74, PO2 69 and a bicarb of 32. Patient was initially admitted to telemetry unit after he was placed on BiPAP but shortly after admission he was noted to be somnolent and became unresponsive. Repeat ABG shows worsening pH and PCO2. Patient is now intubated and admitted to ICU. He is a chest x-ray shows cardiomegaly, central pulmonary vascular congestion and interstitial prominence is seen in both lungs and small bilateral pleural effusions with associated basilar atelectasis. Labs shows a creatinine of 2.46, which is stable and his BNP was 13,200. . PMH/Family/Social Past Medical History CAD, CABG, DONALD on home CPAP, hypertension, diabetes and a probable COPD Past Surgical History Past Surgical Hx: coronary bypass surgery Social History Alcohol Use: other Smoking Status: Unknown if ever smoked Drug Use: other (Unknown) Exam/Review of Systems Vital Signs Vitals Vital Signs Date Time Temp Pulse Resp B/P Pulse Ox O2 Delivery O2 Flow Rate FiO2 04/08/17 23:34 93 20 98 100 04/08/17 21:18 97.5 186/113 04/08/17 21:15 BIPAP 04/08/17 19:10 2.0 Exam Constitutional: other (Morbidly obese male who is currently intubated. Looks comfortable on a vent) Head: atraumatic, normocephalic Eyes: PERRL Respiratory: diminished breath sounds Cardiovascular: other (Tachycardic with regular rhythm) Gastrointestinal: other (Morbidly obese. Anasarca) Extremities: edema Labs Result Diagram: 04/08/17190604/08/171906 Medications Medications Current Medications Hydralazine HCl (Apresoline) 10 mg Q4H PRN IV HTN; Start 04/08/17 at 22:30 Furosemide (Lasix) 40 mg DAILY IV ; Start 04/08/17 at 23:00 Methylprednisolone Sodium Succinate (Solu-Medrol) 80 mg Q12 IV ; Start 04/09/17 at 09:00; Status UNV Methylprednisolone Sodium Succinate 125 mg 125 mg ONCE ONCE IV ; Start at 00:00; Stop 04/09/17 at 00:01; Status UNV Levofloxacin/ Dextrose 100 ml @ 100 mls/hr Q24H IVPB ; Start 04/09/17 at 00:00 ; Status UNV Propofol (Diprivan) 100 ml @ 4.05 mls/hr Q12H IV ; Start 04/09/17 at 00:00; Status UNV Carvedilol (Coreg) 25 mg BID PO ; Start 04/09/17 at 09:00; Status UNV Clopidogrel Bisulfate (plaVIX) 75 mg DAILY PO ; Start 04/09/17 at 09:00; Status UNV Losartan Potassium (Cozaar) 50 mg BID PO ; Start 04/09/17 at 09:00; Status UNV Miscellaneous Information (* Miscellaneous Pharmacy Order) Discontinue current oral sulfonylur... ONCE ONCE XX ; Start 04/09/17 at 00:00; Stop 04/09/17 at 00: 01; Status UNV Diagnostic Test (Pha) (Accu-Chek) 1 ea 02 XX ; Start 04/09/17 at 02:00; Status UNV Insulin Glargine (Lantus) 20 unit DAILY@08 SC ; Start 04/09/17 at 08:00; Status UNV Miscellaneous Information (* Miscellaneous Pharmacy Order) HYPOGLYCEMIA PROTOCOL w... ONCE ONCE XX ; Start 04/09/17 at 00:00; Stop 04/09/17 at 00:01; Status UNV Insulin Aspart (Novolog Insulin Pen) NOVOLOG *MODERATE* ALGORITHM Q6H SC ; Start 04/09/17 at 00:00; Status UNV Miscellaneous Information (* Miscellaneous Pharmacy Order) Discontinue all previ... ONCE ONCE XX ; Start 04/09/17 at 00:00; Stop 04/09/17 at 00:01; Status UNV Diagnostic Test (Pha) 1 ea 1 ea 02 XX ; Start 04/09/17 at 02:00; Status UNV Dextrose/Sodium Chloride (D5-1/2ns) 1,000 ml @ 50 mls/hr Q20H IV ; Start at 00:00; Status UNV Miscellaneous Information (* Miscellaneous Pharmacy Order) Discontinue current oral sulfonylur... ONCE ONCE XX ; Start 04/08/17 at 23:00; Stop 04/08/17 at 23: 01; Status UNV Diagnostic Test (Pha) (Accu-Chek) 1 ea 02 XX ; Start 04/09/17 at 02:00; Status UNV Insulin Glargine (Lantus) 10 unit QHS SC ; Start 04/09/17 at 21:00; Status UNV Miscellaneous Information (* Miscellaneous Pharmacy Order) HYPOGLYCEMIA PROTOCOL w... ONCE ONCE XX ; Start 04/08/17 at 23:00; Stop 04/08/17 at 23:01; Status UNV Miscellaneous Information (* Miscellaneous Pharmacy Order) Discontinue all previ... ONCE ONCE XX ; Start 04/08/17 at 23:00; Stop 04/08/17 at 23:01; Status UNV PAYAM LINDER MD Apr 08, 2017 23:50
[2017-04-09] VITALS (90 sets, daily range): BP systolic 93–177; BP diastolic 65–108; PULSE 49–160; RESP 16–29
[2017-04-09] MEDS ORDERED: METHYLPREDNISOLONE 125 MG INJ IV ONE
[2017-04-09] MEDS ORDERED: ALBUTEROL/IPRATROPIUM (NEB) 3 ML AMP HHN PRN ×2
[2017-04-09] MEDS ORDERED: DEXTROSE 5%-0.45% NACL 1,000 ML IV SCH
[2017-04-09] MEDS ORDERED: GLUCOSE GEL 15 GRAM TUBE PO PRN ×2 (00:30)
[2017-04-09] MEDS ORDERED: GLUCAGON 1 MG INJ IM PRN (00:30)
[2017-04-09] MEDS ORDERED: GLUCOSE GEL 15 GRAM TUBE BUCCAL PRN (00:30)
[2017-04-09] MEDS ORDERED: DEXTROSE 50% 50 ML SYRINGE IV PRN ×2 (00:30)
[2017-04-09] MEDS: DEXTROSE 5%-0.45% NACL 1,000 ML IV SCH ×2 (00:30→22:16)
[2017-04-09 01:39] LABS: TROPONIN-I 0.066 ng/ml (0.00-0.12)
[2017-04-09 01:40] LABS: CK-MB 1.97 ng/ml (0.0-2.4)
--- NOTE | 2017-04-09 01:52 | RADRPT ---
PROCEDURE: XR Chest. CLINICAL INDICATION: Endotracheal intubation. TECHNIQUE: Single frontal view of the chest. COMPARISON: 03/19/2017. FINDINGS: Endotracheal intubation is seen with tip about 12 cm above the yvonne, and is located above the thor acic inlet. Recommend advancing same about 5 cm and re-imaging. New nasogastric tube is seen looped in the mid esophagus with the tip off the superior margin of the film. Cardiomegaly. Cardiac pacing pad over the mid-lower chest. Bilateral patchy air space disease, again greater at the left lung base, although airspace disease a ppears slightly improved over the interval. There is a small left pleural effusion. No signs of pneu mothorax are seen. The osseous structures and soft tissues are unremarkable. IMPRESSION: 1. Endotracheal intubation is seen with tip about 12 cm above the yvonne, and recommend advancing s kevin about 5 cm and re-imaging. 2. Malpositioned nasogastric tube is looped in the mid esophagus, and recommend complete withdrawal with reinsertion and re-imaging. RPTAT: [facility] Physician Darlene Date Time Electronically viewed and signed by Physician Darlene on 04/09/2017 01:52 RS/
[2017-04-09 01:53] LABS: AADO2 Arterial 565.6 mmHg (7.0-24.0); Allen Test ACCEPTAB; Arterial Base Excess 0.7 mmol/L (-3.0-3); Arterial COHb 1.4 % (0.0-3.0); Arterial Fraction of Oxyhgb 96.5 % (93.0-99.0); Arterial HCO3 28.3 mmol/L (22.0-26.0); Arterial MetHb 0.3 % (0.0-1.5); Arterial Total Hemglobin 13.8 g/dl (12.0-18.0); MODE VENT - AC
[2017-04-09] MEDS: ACCU-CHEK XX SCH (02:00)
[2017-04-09] MEDS ORDERED: ACCU-CHEK XX SCH ×2 (02:00)
[2017-04-09] MEDS: PROPOFOL 100 ML IV SCH ×7 (02:01→23:09)
[2017-04-09 05:00] LABS: BASOPHIL # 0.1 10^3/ul (0.0-0.1); BASOPHILS % 0.7 % (0.0-2.0); EOSINOPHILS # 0.1 10^3/ul (0.0-0.5); EOSINOPHILS % 0.7 % (0.0-7.0); HEMATOCRIT 41.1 % (42.0-52.0); HEMOGLOBIN 12.8 g/dl (14.0-18.0); LYMPHOCYTES # 0.8 10^3/ul (0.8-2.9); LYMPHOCYTES % 9.7 % (15.0-51.0); MEAN CORPUSCULAR HEMOGLOBIN 28.3 pg (29.0-33.0); MEAN CORPUSCULAR HGB CONC 31.1 g/dl (32.0-37.0); MEAN CORPUSCULAR VOLUME 90.7 fl (82.0-101.0); MONOCYTE # 0.2 10^3/ul (0.3-0.9); MONOCYTES % 2.2 % (0.0-11.0); NEUTROPHILS % 86.3 % (39.0-77.0); PLATELET COUNT 214 10^3/UL (140-415); RED BLOOD COUNT 4.53 10^6/ul (4.70-6.10); WHITE BLOOD COUNT 8.2 10^3/ul (4.8-10.8)
[2017-04-09 05:32] LABS: ALBUMIN/GLOBULIN RATIO 1.15; BILIRUBIN,INDIRECT 0.2 mg/dl (0-1.1); BILIRUBIN,TOTAL 0.2 mg/dl (0.2-1.3); CALCIUM 8.5 mg/dl (8.4-10.2); CREATININE 2.7 mg/dl (0.61-1.24); MAGNESIUM 2.1 mg/dl (1.7-2.5); PHOSPHORUS 4.4 mg/dl (2.5-4.9); POTASSIUM 4.5 mmol/L (3.5-5.1); TOTAL PROTEIN 5.6 g/dl (6.1-8.1)
[2017-04-09 05:33] LABS: TROPONIN-I 0.065 ng/ml (0.00-0.12)
[2017-04-09 05:58] LABS: CK-MB 1.83 ng/ml (0.0-2.4)
[2017-04-09] MEDS: INSULIN ASPART [NOVOLOG] 3 ML PEN SC SCH ×8 (06:00→23:53)
[2017-04-09 06:57] LABS: ADD UMIC YES; UR AMORPHOUS CRYSTAL MANY /HPF (NONE SEEN); UR ASCORBIC ACID NEGATIVE (NEGATIVE); UR BILIRUBIN (Dip) NEGATIVE (NEGATIVE); UR BLOOD (Dip) NEGATIVE (NEGATIVE); UR CLARITY CLOUDY (CLEAR); UR COLOR YELLOW (YELLOW); UR GLUCOSE (Dip) 2+ mg/dL (NEGATIVE); UR KETONES (Dip) NEGATIVE (NEGATIVE); UR LEUKOCYTE ESTERASE (Dip) NEGATIVE Leu/ul (NEGATIVE); UR NITRITE (Dip) NEGATIVE (NEGATIVE); UR RBC 14 /HPF (0-5); UR SPECIFIC GRAVITY (Dip) 1.023 (1.003-1.030); UR TOTAL PROTEIN (Dip) 3+ mg/dl (NEGATIVE); UR UROBILINOGEN (Dip) NEGATIVE (NEGATIVE)
--- NOTE | 2017-04-09 08:06 | RADRPT ---
PROCEDURE: XR Chest. CLINICAL INDICATION: Repositioned ET tube TECHNIQUE: AP Portable chest. COMPARISON: 04/11/2017 01:08 a.m. FINDINGS: The tip of the ET tube is now 5 cm above the yvonne. The tip of the NG tube is not visualized. The cardiomediastinal silhouette is enlarged. Sternotomy wires are visualized. No pneumothorax is s een. Edema, bilateral interstitial densities and small pleural effusions are again demonstrated. The osseous structures are intact. IMPRESSION: ET tube 5 cm above the yvonne. CHF, small pleural effusions and cardiomegaly. No significant change RPTAT: [facility] Physician Vanda Date Time Electronically viewed and signed by Patsy Avila Physician on 04/09/2017 08:06 /
[2017-04-09] MEDS: CLOPIDOGREL 75 MG TAB PO SCH (08:14)
[2017-04-09] MEDS: FUROSEMIDE 40 MG INJ IV SCH (08:15)
[2017-04-09] MEDS ORDERED: LOSARTAN 50 MG TAB PO SCH (09:00)
[2017-04-09] MEDS: INSULIN GLARGINE [LANtus] 3 ML PEN SC SCH ×2 (09:25→20:56)
[2017-04-09] MEDS: METHYLPREDNISOLONE 125 MG INJ IV SCH ×2 (09:26→20:53)
--- NOTE | 2017-04-09 09:58 | CONS ---
Date/Time of Note Date/Time of Note DATE: 04/09/17 TIME: 09:54 Assessment/Plan Assessment/Plan Additional Assessment/Plan Chest x-ray was reviewed from yesterday which is showing cardiomegaly with changes of congestive heart failure, chest x-ray from today is improved. Current ventilator settings are AC of 20, tidal volume 550, PEEP of 5, 80% FiO2. Next Patient currently on propofol drip at 30 mics per kilogram per minute. Assessment recommendations; 1. Patient admitted with CHF with radiological improvement. 2. Diabetes. 3. Prior history of CABG. 4. Hypertension. 5. Obstructive sleep apnea. 6. Renal insufficiency. Continue current supportive care. Ventilator settings have been adjusted. FiO2 has been decreased to keep O2 sat around 94%. Continue diuresis and current medications. Consultation Date/Type/Reason Admit Date/Time Apr 08, 2017 at 20:17 Date of Consultation: Apr 09, 2017 Type of Consultation: Pulmonary/critical care Reason for Consultation Pulmonary consultation requested for evaluation of respiratory failure. Next History of presenting any; patient is a 51-year-old male who was admitted yesterday via ER when he presented with complaints of shortness of breath going on for the last day or 2. Upon evaluation patient was found to be in severe congestive heart failure and respiratory failure and was intubated by the ER physician. Subsequently transferred to ICU. By the time I saw the patient the patient is sedated and orally intubated. History was obtained from medical records. Past medical history; 1. History of ischemic cardiomyopathy. 2. Prior CABG. 3. Diabetes. 4. Obstructive sleep apnea. 5. Chronic type II respiratory failure. 6. Morbid obesity. 7. Recent admission to [facility] for respiratory failure however patient at that time was not intubated. Medications; reviewed. Allergies; none. Social history, family history, occupational histories are not available. Review of systems; currently unable to be obtained. General exam; middle-aged male, morbidly obese, orally intubated, sedated and currently in no distress. Past Surgical History Past Surgical Hx: coronary bypass surgery Social History Alcohol Use: other Smoking Status: Unknown if ever smoked Drug Use: other (Unknown) Exam/Review of Systems Vital Signs Vitals Vital Signs Date Time Temp Pulse Resp B/P Pulse Ox O2 Delivery O2 Flow Rate FiO2 04/09/17 08:45 55 20 153/99 94 04/09/17 07:45 98.7 04/09/17 05:58 80 04/09/17 02:00 Mechanical Ventilator 04/08/17 19:10 2.0 Intake and Output 04/08/17 04/08/17 04/09/17 15:00 23:00 07:00 Intake Total 388 ml Balance 388 ml Exam HEENT exam; supple neck, JVD difficult to see because of short neck. No thyromegaly. No neck masses. Orally intubated. Patient has fair dentition. Pupils are equal and reactive to light bilaterally. No neck bruits. No thyromegaly. Chest exam; diminished breath sounds bilaterally. There is a well-healed sternal scar. S1-S2 audible, no murmurs. Regular rhythm. Abdomen exam; soft, no organomegaly. Bowel sounds audible. Extremity exam; chronic appearing lower extremity skin changes. Pulses 1+ bilaterally. Trace lower extremity pitting edema bilaterally. [employer]ACH[employer] exam; patient is sedated. Results Result Diagram: 04/09/17 0430 04/09/17 0430 Results 24 hrs Laboratory Tests Test 04/08/17 18:38 04/08/17 19:07 04/08/17 21:00 04/08/17 23:20 Blood Gas Specimen Source Blood arterial Blood arterial Arterial Blood Date Drawn 04/08/2017 7:00:41 PM 04/08/2017 10:20:49 PM Arterial Blood pH (Temp corrected) 7.255 *L 7.169 *L Arterial Blood pCO2 (Temp correct) 74.2 H 92.7 *H Arterial Blood pO2 (Temp corrected) 69.2 L 102.8 H Arterial Blood HCO3 32.2 H 33.0 H Arterial Blood Base Excess 2.5 1.1 Arterial Blood Oxygen Saturation 92.3 L 96.7 Luis Armando Test ACCEPTAB ACCEPTAB Arterial Blood Gas Puncture Site Right Brachial Left Radial Arterial Blood Carboxyhemoglobin 3.0 2.2 Arterial Blood Methemoglobin 0.2 0.3 Blood Gas A-a O2 Differential 6.3 L 149.4 H Oxyhemoglobin Percent 89.3 L 94.3 Total Hemoglobin 15.1 15.1 Blood Gas Temperature 37.0 37.0 Blood Gas Modality NASAL CANNULA MASK - BIPAP FiO2 23.0 50.0 Blood Gas Critical Value Read Back All FLOWERS RN Blood Gas Notified Whom KM KM Blood Gas Notified Time 04/08/2017 7:07:20 PM 04/08/2017 10:30:53 PM White Blood Count 7.7 Red Blood Count 4.79 Hemoglobin 14.0 Hematocrit 43.8 Mean Corpuscular Volume 91.4 Mean Corpuscular Hemoglobin 29.2 Mean Corpuscular Hemoglobin Concent 32.0 Red Cell Distribution Width 13.8 Platelet Count 242 Mean Platelet Volume 11.4 H Neutrophils % 67.4 Lymphocytes % 20.6 Monocytes % 5.6 Eosinophils % 5.2 Basophils % 0.9 Nucleated Red Blood Cells % 0.0 Neutrophils # (Manual) 5.2 Lymphocytes # 1.6 Monocytes # 0.4 Eosinophils # 0.4 Basophils # 0.1 Nucleated Red Blood Cells # 0.0 Prothrombin Time 12.9 Prothrombin Time Ratio 1.0 INR International Normalized Ratio 0.97 Activated Partial Thromboplast Time 32.4 Sodium Level 143 Potassium Level 4.8 Chloride Level 98 Carbon Dioxide Level 34 H Anion Gap 16 Blood Urea Nitrogen 27 H Creatinine 2.46 H Glucose Level 148 Calcium Level 8.6 Troponin I 0.074 B-Type Natriuretic Peptide 09560 H Blood Gas Respiration Rate 16.0 Blood Gas Actual Respiration Rate 18 Blood Gas Pressure Support 10 Blood Gas IPAP/EPAP Ratio 15/5 Urine Color YELLOW Urine Clarity CLOUDY A Urine pH 6.0 Urine Specific [place] 1.023 Urine Ketones NEGATIVE Urine Nitrite NEGATIVE Urine Bilirubin NEGATIVE Urine Urobilinogen NEGATIVE Urine Leukocyte Esterase NEGATIVE Urine Microscopic RBC 14 H Urine Microscopic WBC 13 H Urine Amorphous Crystals MANY A Urine Hemoglobin NEGATIVE Urine Glucose 2+ H Urine Total Protein 3+ H Test 04/09/17 00:50 04/09/17 01:00 04/09/17 02:09 04/09/17 04:30 Creatine Kinase 49 38 Creatine Kinase Index 4.0 4.8 Creatinine Kinase MB (Mass) 1.97 1.83 Troponin I 0.066 0.065 Blood Gas Specimen Source Blood arterial Arterial Blood Date Drawn 04/09/2017 1:45:14 AM Arterial Blood pH (Temp corrected) 7.347 L Arterial Blood pCO2 (Temp correct) 51.0 H Arterial Blood pO2 (Temp corrected) 103.6 H Arterial Blood HCO3 28.3 H Arterial Blood Base Excess 0.7 Arterial Blood Oxygen Saturation 98.2 H Luis Armando Test ACCEPTAB Arterial Blood Gas Puncture Site Left Radial Arterial Blood Carboxyhemoglobin 1.4 Arterial Blood Methemoglobin 0.3 Blood Gas A-a O2 Differential 565.6 H Oxyhemoglobin Percent 96.5 Total Hemoglobin 13.8 Blood Gas Temperature 34.0 Blood Gas Respiration Rate 20.0 Blood Gas Actual Respiration Rate 20 Blood Gas Modality VENT - AC FiO2 100.0 Blood Gas Tidal Volume 550.0 Blood Gas Low PEEP Setting 5.0 Blood Gas Inspiratory Pressure 34.0 Blood Gas Notified Whom MR Blood Gas Notified Time 04/09/2017 1:52:48 AM Bedside Glucose 175 White Blood Count 8.2 Red Blood Count 4.53 L Hemoglobin 12.8 L Hematocrit 41.1 L Mean Corpuscular Volume 90.7 Mean Corpuscular Hemoglobin 28.3 L Mean Corpuscular Hemoglobin Concent 31.1 L Red Cell Distribution Width 14.0 Platelet Count 214 Mean Platelet Volume 12.0 H Neutrophils % 86.3 H Lymphocytes % 9.7 L Monocytes % 2.2 Eosinophils % 0.7 Basophils % 0.7 Nucleated Red Blood Cells % 0.0 Neutrophils # (Manual) 7.1 Lymphocytes # 0.8 Monocytes # 0.2 L Eosinophils # 0.1 Basophils # 0.1 Nucleated Red Blood Cells # 0.0 Sodium Level 137 Potassium Level 4.5 Chloride Level 103 Carbon Dioxide Level 28 Anion Gap 11 Blood Urea Nitrogen 28 H Creatinine 2.70 H Glucose Level 174 Calcium Level 8.5 Phosphorus Level 4.4 Magnesium Level 2.1 Total Bilirubin 0.2 Direct Bilirubin 0.00 Indirect Bilirubin 0.2 Aspartate Amino Transf (AST/SGOT) 11 L Alanine Aminotransferase (ALT/SGPT) 28 Alkaline Phosphatase 49 Total Protein 5.6 L Albumin 3.0 L Globulin 2.60 Albumin/Globulin Ratio 1.15 Triglycerides Level 166 H Cholesterol Level 191 LDL Cholesterol, Calculated 137 HDL Cholesterol 21 L Cholesterol/HDL Ratio 9.0 Test 04/09/17 06:09 Bedside Glucose 177 Medications Medications Current Medications Hydralazine HCl (Apresoline) 10 mg Q4H PRN IV HTN; Start 04/08/17 at 22:30 Furosemide (Lasix) 40 mg DAILY IV Last administered on 04/09/17 08:15; Admin Dose 40 MG; Start 04/08/17 at 23:00 Methylprednisolone Sodium Succinate 80 mg 80 mg Q12 IV Last administered on 09:26; Admin Dose 80 MG; Start 04/09/17 at 09:00 Levofloxacin/ Dextrose 100 ml @ 100 mls/hr Q24H IVPB Last administered on 04/09 00:00; Admin Dose 100 MLS/HR; Start 04/09/17 at 00:00 Propofol (Diprivan) 100 ml @ 4.05 mls/hr Q12H IV Last administered on 09:22; Admin Dose 24.3 MLS/HR; Start 04/09/17 at 00:00 Carvedilol (Coreg) 25 mg BID PO ; Start 04/09/17 at 09:00 Clopidogrel Bisulfate (plaVIX) 75 mg DAILY PO Last administered on 04/09/17 08 :14; Admin Dose 75 MG; Start 04/09/17 at 09:00 Losartan Potassium (Cozaar) 50 mg BID PO Last administered on 04/09/17 08:14; Admin Dose 50 MG; Start 04/09/17 at 09:00 Insulin Glargine (Lantus) 20 unit DAILY@08 SC Last administered on 04/09/17 09 :25; Admin Dose 20 UNIT; Start 04/09/17 at 08:00 Insulin Aspart (Novolog Insulin Pen) NOVOLOG *MODERATE* ALGORITHM Q6H SC ; Start 04/09/17 at 00:00 Diagnostic Test (Pha) (Accu-Chek) 1 ea 02 XX ; Start 04/09/17 at 02:00 Insulin Glargine 10 unit 10 unit QHS SC ; Start 04/09/17 at 21:00 Dextrose/Sodium Chloride (D5-1/2ns) 1,000 ml @ 50 mls/hr Q20H IV Last administered on 04/09/17 00:30; Admin Dose 50 MLS/HR; Start 04/09/17 at 00:30 Miscellaneous Information 1 ea NOTE XX ; Start 04/09/17 at 00:30 Glucose (Glutose) 15 gm Q15M PRN PO DECREASED GLUCOSE; Start 04/09/17 at 00:30 Glucose (Glutose) 22.5 gm Q15M PRN PO DECREASED GLUCOSE; Start 04/09/17 at 00: 30 Dextrose (D50w Syringe) 25 ml Q15M PRN IV DECREASED GLUCOSE; Start 04/09/17 at 00:30 Dextrose (D50w Syringe) 50 ml Q15M PRN IV DECREASED GLUCOSE; Start 04/09/17 at 00:30 Glucagon (Glucagen) 1 mg Q15M PRN IM DECREASED GLUCOSE; Start 04/09/17 at 00:30 Glucose (Glutose) 15 gm Q15M PRN BUCCAL DECREASED GLUCOSE; Start 04/09/17 at 00 :30 MARIE JEFFREY Apr 09, 2017 09:58
--- NOTE | 2017-04-09 10:09 | PN ---
Date/Time of Note Date/Time of Note DATE: 04/09/17 TIME: 10:05 Assessment/Plan VTE Prophylaxis VTE Prophylaxis Intervention: SCD's Lines/Catheters IV C[facility]ter Type (from [facility] Peripheral IV Urinary Cath still in place: No Assessment/Plan Chief Complaint/Hosp Course Assessment/Plan: 51-year-old male presents with: 1. Hypercapnic and hypoxic respiratory failure, s/p intubation. Likely secondary to combination of COPD and CHF exacerbation. -Continue ICU monitoring -Continue ventilator support, breathing treatments, steroid, antibiotic and diuretics -Follow-up pulmonary recommendation 2. CAD with history of CABG -Continue home medications including his Plavix -Follow-up cardiology consult 3. Ischemic cardiomyopathy with systolic dysfunction, with EF of 40% per recent 2D echo 2 weeks ago -Continue home cardiac medications 4. Acute CHF exacerbation, systolic. BNP on admission was 13,200 -Continue diuretic and vent support -Monitor ins and outs. 5. History of diabetes: recent A1c 7.9 -Insulin sliding scale while in house 6. Obstructive sleep apnea: Currently intubated -Continue vent support. Follow-up pulmonary consult recommendation 7. Hypertension: BP improved now -Continue home meds with adjustment as needed 8. CKD: Stable, but creatinine is elevated at 2.7. -Avoid nephrotoxins -We will obtain nephrology consult Critical care time spent on patient care today equals 50 minutes. Problems: Subjective 24 Hr Interval Summary Free Text/Dictation Patient intubated, no acute events overnight. Having adequate urine output. Exam/Review of Systems Vital Signs Vitals Vital Signs Date Time Temp Pulse Resp B/P Pulse Ox O2 Delivery O2 Flow Rate FiO2 04/09/17 08:45 55 20 153/99 94 04/09/17 07:45 98.7 04/09/17 05:58 80 04/09/17 02:00 Mechanical Ventilator 04/08/17 19:10 2.0 Intake and Output 04/08/17 04/08/17 04/09/17 15:00 23:00 07:00 Intake Total 388 ml Balance 388 ml Exam Constitutional: other (Morbidly obese male who is currently intubated. Looks comfortable on vent) Head: atraumatic, normocephalic Eyes: PERRL Respiratory: some diminished breath sounds Cardiovascular: S1, S2 heard Gastrointestinal: other (Morbidly obese. Anasarca) Extremities: edema Results Result Diagram: 04/09/17 2390 04/09/17 0430 Results 24 hrs Laboratory Tests Test 04/08/17 18:38 04/08/17 19:07 04/08/17 21:00 04/08/17 23:20 Blood Gas Specimen Source Blood arterial Blood arterial Arterial Blood Date Drawn 04/08/2017 7:00:41 PM 04/08/2017 10:20:49 PM Arterial Blood pH (Temp corrected) 7.255 *L 7.169 *L Arterial Blood pCO2 (Temp correct) 74.2 H 92.7 *H Arterial Blood pO2 (Temp corrected) 69.2 L 102.8 H Arterial Blood HCO3 32.2 H 33.0 H Arterial Blood Base Excess 2.5 1.1 Arterial Blood Oxygen Saturation 92.3 L 96.7 Luis Armando Test ACCEPTAB ACCEPTAB Arterial Blood Gas Puncture Site Right Brachial Left Radial Arterial Blood Carboxyhemoglobin 3.0 2.2 Arterial Blood Methemoglobin 0.2 0.3 Blood Gas A-a O2 Differential 6.3 L 149.4 H Oxyhemoglobin Percent 89.3 L 94.3 Total Hemoglobin 15.1 15.1 Blood Gas Temperature 37.0 37.0 Blood Gas Modality NASAL CANNULA MASK - BIPAP FiO2 23.0 50.0 Blood Gas Critical Value Read Back All FLOWERS RN Blood Gas Notified Whom KM KM Blood Gas Notified Time 04/08/2017 7:07:20 PM 04/08/2017 10:30:53 PM White Blood Count 7.7 Red Blood Count 4.79 Hemoglobin 14.0 Hematocrit 43.8 Mean Corpuscular Volume 91.4 Mean Corpuscular Hemoglobin 29.2 Mean Corpuscular Hemoglobin Concent 32.0 Red Cell Distribution Width 13.8 Platelet Count 242 Mean Platelet Volume 11.4 H Neutrophils % 67.4 Lymphocytes % 20.6 Monocytes % 5.6 Eosinophils % 5.2 Basophils % 0.9 Nucleated Red Blood Cells % 0.0 Neutrophils # (Manual) 5.2 Lymphocytes # 1.6 Monocytes # 0.4 Eosinophils # 0.4 Basophils # 0.1 Nucleated Red Blood Cells # 0.0 Prothrombin Time 12.9 Prothrombin Time Ratio 1.0 INR International Normalized Ratio 0.97 Activated Partial Thromboplast Time 32.4 Sodium Level 143 Potassium Level 4.8 Chloride Level 98 Carbon Dioxide Level 34 H Anion Gap 16 Blood Urea Nitrogen 27 H Creatinine 2.46 H Glucose Level 148 Calcium Level 8.6 Troponin I 0.074 B-Type Natriuretic Peptide 09967 H Blood Gas Respiration Rate 16.0 Blood Gas Actual Respiration Rate 18 Blood Gas Pressure Support 10 Blood Gas IPAP/EPAP Ratio 15/ Urine Color YELLOW Urine Clarity CLOUDY A Urine pH 6.0 Urine Specific [place] 1.023 Urine Ketones NEGATIVE Urine Nitrite NEGATIVE Urine Bilirubin NEGATIVE Urine Urobilinogen NEGATIVE Urine Leukocyte Esterase NEGATIVE Urine Microscopic RBC 14 H Urine Microscopic WBC 13 H Urine Amorphous Crystals MANY A Urine Hemoglobin NEGATIVE Urine Glucose 2+ H Urine Total Protein 3+ H Test 04/09/17 00:50 04/09/17 01:00 04/09/17 02:09 04/09/17 04:30 Creatine Kinase 49 38 Creatine Kinase Index 4.0 4.8 Creatinine Kinase MB (Mass) 1.97 1.83 Troponin I 0.066 0.065 Blood Gas Specimen Source Blood arterial Arterial Blood Date Drawn 04/09/2017 1:45:14 AM Arterial Blood pH (Temp corrected) 7.347 L Arterial Blood pCO2 (Temp correct) 51.0 H Arterial Blood pO2 (Temp corrected) 103.6 H Arterial Blood HCO3 28.3 H Arterial Blood Base Excess 0.7 Arterial Blood Oxygen Saturation 98.2 H Luis Armando Test ACCEPTAB Arterial Blood Gas Puncture Site Left Radial Arterial Blood Carboxyhemoglobin 1.4 Arterial Blood Methemoglobin 0.3 Blood Gas A-a O2 Differential 565.6 H Oxyhemoglobin Percent 96.5 Total Hemoglobin 13.8 Blood Gas Temperature 34.0 Blood Gas Respiration Rate 20.0 Blood Gas Actual Respiration Rate 20 Blood Gas Modality VENT - AC FiO2 100.0 Blood Gas Tidal Volume 550.0 Blood Gas Low PEEP Setting 5.0 Blood Gas Inspiratory Pressure 34.0 Blood Gas Notified Whom MR Blood Gas Notified Time 04/09/2017 1:52:48 AM Bedside Glucose 175 White Blood Count 8.2 Red Blood Count 4.53 L Hemoglobin 12.8 L Hematocrit 41.1 L Mean Corpuscular Volume 90.7 Mean Corpuscular Hemoglobin 28.3 L Mean Corpuscular Hemoglobin Concent 31.1 L Red Cell Distribution Width 14.0 Platelet Count 214 Mean Platelet Volume 12.0 H Neutrophils % 86.3 H Lymphocytes % 9.7 L Monocytes % 2.2 Eosinophils % 0.7 Basophils % 0.7 Nucleated Red Blood Cells % 0.0 Neutrophils # (Manual) 7.1 Lymphocytes # 0.8 Monocytes # 0.2 L Eosinophils # 0.1 Basophils # 0.1 Nucleated Red Blood Cells # 0.0 Sodium Level 137 Potassium Level 4.5 Chloride Level 103 Carbon Dioxide Level 28 Anion Gap 11 Blood Urea Nitrogen 28 H Creatinine 2.70 H Glucose Level 174 Calcium Level 8.5 Phosphorus Level 4.4 Magnesium Level 2.1 Total Bilirubin 0.2 Direct Bilirubin 0.00 Indirect Bilirubin 0.2 Aspartate Amino Transf (AST/SGOT) 11 L Alanine Aminotransferase (ALT/SGPT) 28 Alkaline Phosphatase 49 Total Protein 5.6 L Albumin 3.0 L Globulin 2.60 Albumin/Globulin Ratio 1.15 Triglycerides Level 166 H Cholesterol Level 191 LDL Cholesterol, Calculated 137 HDL Cholesterol 21 L Cholesterol/HDL Ratio 9.0 Test 04/09/17 06:09 Bedside Glucose 177 Medications Medications Current Medications Hydralazine HCl (Apresoline) 10 mg Q4H PRN IV HTN; Start 04/08/17 at 22:30 Furosemide (Lasix) 40 mg DAILY IV Last administered on 04/09/17 08:15; Admin Dose 40 MG; Start 04/08/17 at 23:00 Methylprednisolone Sodium Succinate 80 mg 80 mg Q12 IV Last administered on 09:26; Admin Dose 80 MG; Start 04/09/17 at 09:00 Levofloxacin/ Dextrose 100 ml @ 100 mls/hr Q24H IVPB Last administered on 04/09 00:00; Admin Dose 100 MLS/HR; Start 04/09/17 at 00:00 Propofol (Diprivan) 100 ml @ 4.05 mls/hr Q12H IV Last administered on 09:22; Admin Dose 24.3 MLS/HR; Start 04/09/17 at 00:00 Carvedilol (Coreg) 25 mg BID PO ; Start 04/09/17 at 09:00 Clopidogrel Bisulfate (plaVIX) 75 mg DAILY PO Last administered on 04/09/17 08 :14; Admin Dose 75 MG; Start 04/09/17 at 09:00 Insulin Glargine (Lantus) 20 unit DAILY@08 SC Last administered on 04/09/17 09 :25; Admin Dose 20 UNIT; Start 04/09/17 at 08:00 Insulin Aspart (Novolog Insulin Pen) NOVOLOG *MODERATE* ALGORITHM Q6H SC ; Start 04/09/17 at 00:00 Diagnostic Test (Pha) (Accu-Chek) 1 ea 02 XX ; Start 04/09/17 at 02:00 Insulin Glargine 10 unit 10 unit QHS SC ; Start 04/09/17 at 21:00 Dextrose/Sodium Chloride (D5-1/2ns) 1,000 ml @ 50 mls/hr Q20H IV Last administered on 04/09/17t 00:30; Admin Dose 50 MLS/HR; Start 04/09/17 at 00:30 Miscellaneous Information 1 ea NOTE XX ; Start 04/09/17 at 00:30 Glucose (Glutose) 15 gm Q15M PRN PO DECREASED GLUCOSE; Start 04/09/17 at 00:30 Glucose (Glutose) 22.5 gm Q15M PRN PO DECREASED GLUCOSE; Start 04/09/17 at 00: 30 Dextrose (D50w Syringe) 25 ml Q15M PRN IV DECREASED GLUCOSE; Start 04/09/17 at 00:30 Dextrose (D50w Syringe) 50 ml Q15M PRN IV DECREASED GLUCOSE; Start 04/09/17 at 00:30 Glucagon (Glucagen) 1 mg Q15M PRN IM DECREASED GLUCOSE; Start 04/09/17 at 00:30 Glucose (Glutose) 15 gm Q15M PRN BUCCAL DECREASED GLUCOSE; Start 04/09/17 at 00 :30 CHOCO MONTOYA Apr 09, 2017 10:09
--- NOTE | 2017-04-09 17:39 | CONS ---
Date/Time of Note Date/Time of Note DATE: 04/09/17 TIME: 17:32 Assessment/Plan Assessment/Plan Additional Assessment/Plan 1. Acute resp failure intubated multifactorial due to COPD and CHF exacerbation 2. acute kidney injury on CKD due to Cardiorenal syndrome 3. Acute CHF Exacerbation , acute on chronic ,systolic, EF 40% on ECHO 4. Hypertension 5. Hyperlipidemia 6. H/o CAD S/p CABG Plan: Thank you Dr. Montoya for this consultation S/p lasix 40mg IV in AM, I will give lasix 20mg iV at 6 pm Strict I/o, [facility] care last ECHO showed EF 40%, renal US unremarkable in 02/2017 will continue to follow up, AML ,CXR and ABG has been ordered will follow up Consultation Date/Type/Reason Admit Date/Time Apr 08, 2017 at 20:17 Date of Consultation: Apr 09, 2017 Type of Consultation: NEPHROLOGY Reason for Consultation acute kidney injury, acute fluid overlaod causing acute hypoxic resp failure intubated on ventilator Referring Provider: CHOCO MONTOYA Subjective hx not possible: pt non-verbal, other (Intubated sedated ) Past Medical History Medical History: congestive heart failure, coronary artery disease, diabetes, hypertension Past Surgical History Past Surgical Hx: coronary bypass surgery Family History Significant Family History: other (Not available ) Social History Alcohol Use: none Smoking Status: Unknown if ever smoked Drug Use: none, other (Unknown) Exam/Review of Systems Vital Signs Vitals Vital Signs Date Time Temp Pulse Resp B/P Pulse Ox O2 Delivery O2 Flow Rate FiO2 04/09/17 17:00 52 20 144/95 95 04/09/17 16:00 97.5 04/09/17 14:00 60 04/09/17 02:00 Mechanical Ventilator 04/08/17 19:10 2.0 Intake and Output 04/08/17 04/08/17 04/09/17 15:00 23:00 07:00 Intake Total 388 ml Balance 388 ml Exam Constitutional: distress Eyes: EOMI, nl conjunctiva ENMT: intubated Respiratory: congested cough, crackles/rales, diminished breath sounds, wheezing Cardiovascular: nl pulses, regular rate and rhythm Gastrointestinal: non-tender, other (Morbidly obese ), soft Extremities: normal pulses Neurological: other (sedated intubated ), unresponsive Lymph: nl lymph nodes Results Result Diagram: 04/09/17 0430 04/09/17 0430 Results 24 hrs Laboratory Tests Test 04/08/17 18:38 04/08/17 19:07 04/08/17 21:00 04/08/17 23:20 Blood Gas Specimen Source Blood arterial Blood arterial Arterial Blood Date Drawn 04/08/2017 7:00:41 PM 04/08/2017 10:20:49 PM Arterial Blood pH (Temp corrected) 7.255 *L 7.169 *L Arterial Blood pCO2 (Temp correct) 74.2 H 92.7 *H Arterial Blood pO2 (Temp corrected) 69.2 L 102.8 H Arterial Blood HCO3 32.2 H 33.0 H Arterial Blood Base Excess 2.5 1.1 Arterial Blood Oxygen Saturation 92.3 L 96.7 Luis Armando Test ACCEPTAB ACCEPTAB Arterial Blood Gas Puncture Site Right Brachial Left Radial Arterial Blood Carboxyhemoglobin 3.0 2.2 Arterial Blood Methemoglobin 0.2 0.3 Blood Gas A-a O2 Differential 6.3 L 149.4 H Oxyhemoglobin Percent 89.3 L 94.3 Total Hemoglobin 15.1 15.1 Blood Gas Temperature 37.0 37.0 Blood Gas Modality NASAL CANNULA MASK - BIPAP FiO2 23.0 50.0 Blood Gas Critical Value Read Back All FLOWERS RN Blood Gas Notified Whom KM KM Blood Gas Notified Time 04/08/2017 7:07:20 PM 04/08/2017 10:30:53 PM White Blood Count 7.7 Red Blood Count 4.79 Hemoglobin 14.0 Hematocrit 43.8 Mean Corpuscular Volume 91.4 Mean Corpuscular Hemoglobin 29.2 Mean Corpuscular Hemoglobin Concent 32.0 Red Cell Distribution Width 13.8 Platelet Count 242 Mean Platelet Volume 11.4 H Neutrophils % 67.4 Lymphocytes % 20.6 Monocytes % 5.6 Eosinophils % 5.2 Basophils % 0.9 Nucleated Red Blood Cells % 0.0 Neutrophils # (Manual) 5.2 Lymphocytes # 1.6 Monocytes # 0.4 Eosinophils # 0.4 Basophils # 0.1 Nucleated Red Blood Cells # 0.0 Prothrombin Time 12.9 Prothrombin Time Ratio 1.0 INR International Normalized Ratio 0.97 Activated Partial Thromboplast Time 32.4 Sodium Level 143 Potassium Level 4.8 Chloride Level 98 Carbon Dioxide Level 34 H Anion Gap 16 Blood Urea Nitrogen 27 H Creatinine 2.46 H Glucose Level 148 Calcium Level 8.6 Troponin I 0.074 B-Type Natriuretic Peptide 86770 H Blood Gas Respiration Rate 16.0 Blood Gas Actual Respiration Rate 18 Blood Gas Pressure Support 10 Blood Gas IPAP/EPAP Ratio 15/5 Urine Color YELLOW Urine Clarity CLOUDY A Urine pH 6.0 Urine Specific [place] 1.023 Urine Ketones NEGATIVE Urine Nitrite NEGATIVE Urine Bilirubin NEGATIVE Urine Urobilinogen NEGATIVE Urine Leukocyte Esterase NEGATIVE Urine Microscopic RBC 14 H Urine Microscopic WBC 13 H Urine Amorphous Crystals MANY A Urine Hemoglobin NEGATIVE Urine Glucose 2+ H Urine Total Protein 3+ H Test 04/09/17 00:50 04/09/17 01:00 04/09/17 02:09 04/09/17 04:30 Creatine Kinase 49 38 Creatine Kinase Index 4.0 4.8 Creatinine Kinase MB (Mass) 1.97 1.83 Troponin I 0.066 0.065 Blood Gas Specimen Source Blood arterial Arterial Blood Date Drawn 04/09/2017 1:45:14 AM Arterial Blood pH (Temp corrected) 7.347 L Arterial Blood pCO2 (Temp correct) 51.0 H Arterial Blood pO2 (Temp corrected) 103.6 H Arterial Blood HCO3 28.3 H Arterial Blood Base Excess 0.7 Arterial Blood Oxygen Saturation 98.2 H Luis Armando Test ACCEPTAB Arterial Blood Gas Puncture Site Left Radial Arterial Blood Carboxyhemoglobin 1.4 Arterial Blood Methemoglobin 0.3 Blood Gas A-a O2 Differential 565.6 H Oxyhemoglobin Percent 96.5 Total Hemoglobin 13.8 Blood Gas Temperature 34.0 Blood Gas Respiration Rate 20.0 Blood Gas Actual Respiration Rate 20 Blood Gas Modality VENT - AC FiO2 100.0 Blood Gas Tidal Volume 550.0 Blood Gas Low PEEP Setting 5.0 Blood Gas Inspiratory Pressure 34.0 Blood Gas Notified Whom MR Blood Gas Notified Time 04/09/2017 1:52:48 AM Bedside Glucose 175 White Blood Count 8.2 Red Blood Count 4.53 L Hemoglobin 12.8 L Hematocrit 41.1 L Mean Corpuscular Volume 90.7 Mean Corpuscular Hemoglobin 28.3 L Mean Corpuscular Hemoglobin Concent 31.1 L Red Cell Distribution Width 14.0 Platelet Count 214 Mean Platelet Volume 12.0 H Neutrophils % 86.3 H Lymphocytes % 9.7 L Monocytes % 2.2 Eosinophils % 0.7 Basophils % 0.7 Nucleated Red Blood Cells % 0.0 Neutrophils # (Manual) 7.1 Lymphocytes # 0.8 Monocytes # 0.2 L Eosinophils # 0.1 Basophils # 0.1 Nucleated Red Blood Cells # 0.0 Sodium Level 137 Potassium Level 4.5 Chloride Level 103 Carbon Dioxide Level 28 Anion Gap 11 Blood Urea Nitrogen 28 H Creatinine 2.70 H Glucose Level 174 Calcium Level 8.5 Phosphorus Level 4.4 Magnesium Level 2.1 Total Bilirubin 0.2 Direct Bilirubin 0.00 Indirect Bilirubin 0.2 Aspartate Amino Transf (AST/SGOT) 11 L Alanine Aminotransferase (ALT/SGPT) 28 Alkaline Phosphatase 49 Total Protein 5.6 L Albumin 3.0 L Globulin 2.60 Albumin/Globulin Ratio 1.15 Triglycerides Level 166 H Cholesterol Level 191 LDL Cholesterol, Calculated 137 HDL Cholesterol 21 L Cholesterol/HDL Ratio 9.0 Test 04/09/17 06:09 04/09/17 12:04 Bedside Glucose 177 186 Medications Medications Current Medications Hydralazine HCl (Apresoline) 10 mg Q4H PRN IV HTN; Start 04/08/17 at 22:30 Furosemide (Lasix) 40 mg DAILY IV Last administered on 04/09/17 08:15; Admin Dose 40 MG; Start 04/08/17 at 23:00 Methylprednisolone Sodium Succinate 80 mg 80 mg Q12 IV Last administered on 09:26; Admin Dose 80 MG; Start 04/09/17 at 09:00 Levofloxacin/ Dextrose 100 ml @ 100 mls/hr Q24H IVPB Last administered on 04/09 00:00; Admin Dose 100 MLS/HR; Start 04/09/17 at 00:00 Propofol (Diprivan) 100 ml @ 4.05 mls/hr Q12H IV Last administered on 15:43; Admin Dose 28.35 MLS/HR; Start 04/09/17 at 00:00 Carvedilol (Coreg) 25 mg BID PO ; Start 04/09/17 at 09:00 Clopidogrel Bisulfate (plaVIX) 75 mg DAILY PO Last administered on 04/09/17 08 :14; Admin Dose 75 MG; Start 04/09/17 at 09:00 Insulin Glargine (Lantus) 20 unit DAILY@08 SC Last administered on 04/09/17 09 :25; Admin Dose 20 UNIT; Start 04/09/17 at 08:00 Insulin Aspart (Novolog Insulin Pen) NOVOLOG *MODERATE* ALGORITHM Q6H SC Last administered on 04/09/17 12:59; Admin Dose 4 UNIT; Start 04/09/17 at 00:00 Diagnostic Test (Pha) (Accu-Chek) 1 ea 02 XX ; Start 04/09/17 at 02:00 Insulin Glargine 10 unit 10 unit QHS SC ; Start 04/09/17 at 21:00 Dextrose/Sodium Chloride (D5-1/2ns) 1,000 ml @ 50 mls/hr Q20H IV Last administered on 04/09/17 00:30; Admin Dose 50 MLS/HR; Start 04/09/17 at 00:30 Miscellaneous Information 1 ea NOTE XX ; Start 04/09/17 at 00:30 Glucose (Glutose) 15 gm Q15M PRN PO DECREASED GLUCOSE; Start 04/09/17 at 00:30 Glucose (Glutose) 22.5 gm Q15M PRN PO DECREASED GLUCOSE; Start 04/09/17 at 00: 30 Dextrose (D50w Syringe) 25 ml Q15M PRN IV DECREASED GLUCOSE; Start 04/09/17 at 00:30 Dextrose (D50w Syringe) 50 ml Q15M PRN IV DECREASED GLUCOSE; Start 04/09/17 at 00:30 Glucagon (Glucagen) 1 mg Q15M PRN IM DECREASED GLUCOSE; Start 04/09/17 at 00:30 Glucose (Glutose) 15 gm Q15M PRN BUCCAL DECREASED GLUCOSE; Start 04/09/17 at 00 :30 Furosemide (Lasix) 20 mg ONCE ONCE IV ; Start 04/09/17 at 18:00; Stop 04/09/17 at 18:01 ARELI FRANKLIN MD Apr 09, 2017 17:39
[2017-04-09] MEDS ORDERED: FUROSEMIDE 20 MG INJ IV ONE (18:00)
[2017-04-09] MEDS: LEVOFLOXACIN 500MG/D5W (PMX) 100 ML IVPB SCH ×2 (23:51)
[2017-04-10] VITALS (53 sets, daily range): BP systolic 123–156; BP diastolic 70–104; PULSE 51–78; RESP 16–32
[2017-04-10] MEDS: ACCU-CHEK XX SCH (02:00)
[2017-04-10] MEDS: PROPOFOL 100 ML IV SCH ×2 (03:58→06:46)
--- NOTE | 2017-04-10 04:52 | QN ---
Documentation Comment Called to Room [address] Vogel on the night of 04/08 Apparently on BiPap the patient's CO2 had increased and had decreasing mental status because of CO2 narcosis: ET intubation note: Preoxygenated with bag mask ventilation. Glidescope was used with size 4 blade to easily introduce a size 8 ET tube through the visualized vocal cords. Confirmed by ETCO2 color change as well. Equal breath sounds. Oxygen sat 100% after procedure. Tolerated well. No complications. LEANAN FLOWERS DO Apr 10, 2017 04:52
[2017-04-10 05:44] LABS: ABNORMAL IP MESSAGE 1; BASOPHILS % 0.1 % (0.0-2.0); HEMATOCRIT 41.9 % (42.0-52.0); HEMOGLOBIN 13.7 g/dl (14.0-18.0); LYMPHOCYTES # 0.5 10^3/ul (0.8-2.9); LYMPHOCYTES % 5.6 % (15.0-51.0); MEAN CORPUSCULAR HEMOGLOBIN 28.7 pg (29.0-33.0); MEAN CORPUSCULAR HGB CONC 32.7 g/dl (32.0-37.0); MEAN CORPUSCULAR VOLUME 87.8 fl (82.0-101.0); MONOCYTE # 0.2 10^3/ul (0.3-0.9); MONOCYTES % 1.8 % (0.0-11.0); NEUTROPHILS % 91.9 % (39.0-77.0); PLATELET COUNT 238 10^3/UL (140-415); POSITIVE DIFF @See below; RED BLOOD COUNT 4.77 10^6/ul (4.70-6.10); RED CELL DISTRIBUTION WIDTH 13.7 % (11.5-14.5); WHITE BLOOD COUNT 9.1 10^3/ul (4.8-10.8)
[2017-04-10] MEDS: INSULIN ASPART [NOVOLOG] 3 ML PEN SC SCH ×6 (06:04→18:25)
[2017-04-10 06:11] LABS: MAGNESIUM 2.1 mg/dl (1.7-2.5); PHOSPHORUS 5.2 mg/dl (2.5-4.9)
[2017-04-10 06:18] LABS: CALCIUM 8.8 mg/dl (8.4-10.2); CREATININE 2.85 mg/dl (0.61-1.24); POTASSIUM 4.3 mmol/L (3.5-5.1)
--- NOTE | 2017-04-10 08:12 | RADRPT ---
PROCEDURE: XR Chest. CLINICAL INDICATION: f/u for ETT adjustment TECHNIQUE: PA and Lateral views of the chest were obtained. COMPARISON: Chest x-ray 04/09/2017 at 06:23 a.m. FINDINGS: The endotracheal tube terminates approximate 4.5 cm above the yvonne (previously approximately 5.5 c m above the yvonne). The nasogastric tube courses inferiorly into the stomach and the on the field of view. Mediasternotomy wires remain in place. The cardiac silhouette remains moderately enlarged. There is persistent pulmonary vascular congestion. Diffuse pulmonary edema appears slightly decrease d compared to prior study. There is improved aeration of the lung bases. No pneumothorax is identified. There are degenerative changes of the visualized spine. IMPRESSION: 1. The endotracheal tube terminates approximately 4.5 cm above the yvonne (previously approximately 5.5 cm). 2. Persistent pulmonary vascular congestion with interval decreased diffuse pulmonary edema. 3. Improved aeration of both lung bases. RPTAT: EE Physician Meena Date Time Electronically viewed and signed by Physician Meena on 04/10/2017 08:11 RODRI/
--- NOTE | 2017-04-10 09:27 | PN ---
Date/Time of Note Date/Time of Note DATE: 04/10/17 TIME: 09:24 Assessment/Plan VTE Prophylaxis VTE Prophylaxis Intervention: SCD's Lines/Catheters IV Catheter Type (from Nrs): Peripheral IV Urinary Cath still in place: Yes Reason Cath still needed: urinary retention Assessment/Plan Chief Complaint/Hosp Course Assessment/Plan: 51-year-old male presents with: 1. Hypercapnic and hypoxic respiratory failure, s/p intubation. Likely secondary to combination of COPD and CHF exacerbation. -Continue ICU monitoring -Continue ventilator support, breathing treatments, steroid, antibiotic and diuretics -Follow-up pulmonary recommendation 2. CAD with history of CABG -Continue home medications including his Plavix -Follow-up cardiology consult (pending) 3. Ischemic cardiomyopathy with systolic dysfunction, with EF of 40% per recent 2D echo 2 weeks ago -Continue home cardiac medications -We will also get cardiology consult 4. Acute CHF exacerbation, systolic. BNP on admission was 13,200 -Continue diuretic dosage per renal recommendations for now, and vent support -Monitor ins and outs. 5. History of diabetes: recent A1c 7.9 -Insulin sliding scale while in house 6. Obstructive sleep apnea: Currently intubated -Continue vent support. Follow-up pulmonary consult recommendation 7. Hypertension: BP improved now -Continue home meds with adjustment as needed 8. CKD: Stable, but creatinine is elevated at 2.7->2.85. Component of cardiorenal syndrome as well. -Avoid nephrotoxins -Follow-up nephrology consult recommendations Critical care time spent on patient care today equals 45 minutes. Problems: Subjective 24 Hr Interval Summary Free Text/Dictation Patient still intubated. Having low urine output, on Lasix. Otherwise no acute events overnight. Exam/Review of Systems Vital Signs Vitals Vital Signs Date Time Temp Pulse Resp B/P Pulse Ox O2 Delivery O2 Flow Rate FiO2 04/10/17 07:12 53 20 99 60 04/10/17 06:00 123/81 Mechanical Ventilator 04/10/17 04:00 97.5 04/08/17 19:10 2.0 Intake and Output 04/09/17 04/09/17 04/10/17 15:00 23:00 07:00 Intake Total 594.43 ml 713.83 ml 580.35 ml Output Total 1600 ml 1005 ml 245 ml Balance -1005.57 ml -291.17 ml 335.35 ml Exam Constitutional: other (Morbidly obese male who is currently intubated. Looks comfortable on vent) Head: atraumatic, normocephalic Eyes: PERRL Respiratory: some diminished breath sounds Cardiovascular: S1, S2 heard Gastrointestinal: other (Morbidly obese. Some anasarca) Extremities: edema Results Result Diagram: 04/10/17 0445 04/10/17 0445 Results 24 hrs Laboratory Tests Test 04/09/17 12:04 04/09/17 17:36 04/09/17 20:51 04/09/17 23:50 Bedside Glucose 186 186 167 177 Test 04/10/17 04:45 04/10/17 06:02 White Blood Count 9.1 Red Blood Count 4.77 Hemoglobin 13.7 L Hematocrit 41.9 L Mean Corpuscular Volume 87.8 Mean Corpuscular Hemoglobin 28.7 L Mean Corpuscular Hemoglobin Concent 32.7 Red Cell Distribution Width 13.7 Platelet Count 238 Mean Platelet Volume 12.0 H Neutrophils % 91.9 H Lymphocytes % 5.6 L Monocytes % 1.8 Eosinophils % 0.0 Basophils % 0.1 Nucleated Red Blood Cells % 0.0 Neutrophils # (Manual) 8.3 H Lymphocytes # 0.5 L Monocytes # 0.2 L Eosinophils # 0.0 Basophils # 0.0 Nucleated Red Blood Cells # 0.0 Sodium Level 137 Potassium Level 4.3 Chloride Level 102 Carbon Dioxide Level 27 Anion Gap 12 Blood Urea Nitrogen 37 H Creatinine 2.85 H Glucose Level 173 Calcium Level 8.8 Phosphorus Level 5.2 H Magnesium Level 2.1 Bedside Glucose 154 Medications Medications Current Medications Hydralazine HCl (Apresoline) 10 mg Q4H PRN IV HTN; Start 04/08/17 at 22:30 Furosemide (Lasix) 40 mg DAILY IV Last administered on 04/09/17 08:15; Admin Dose 40 MG; Start 04/08/17 at 23:00 Methylprednisolone Sodium Succinate 80 mg 80 mg Q12 IV Last administered on 20:53; Admin Dose 80 MG; Start 04/09/17 at 09:00 Levofloxacin/ Dextrose 100 ml @ 100 mls/hr Q24H IVPB Last administered on 04/09 23:51; Admin Dose 100 MLS/HR; Start 04/09/17 at 00:00 Propofol (Diprivan) 100 ml @ 4.05 mls/hr Q12H IV Last administered on 06:46; Admin Dose 24.3 MLS/HR; Start 04/09/17 at 00:00 Carvedilol (Coreg) 25 mg BID PO Last administered on 04/09/17 20:53; Admin Dose 25 MG; Start 04/09/17 at 09:00 Clopidogrel Bisulfate (plaVIX) 75 mg DAILY PO Last administered on 04/09/17 08 :14; Admin Dose 75 MG; Start 04/09/17 at 09:00 Insulin Glargine (Lantus) 20 unit DAILY@08 SC Last administered on 04/09/17 09 :25; Admin Dose 20 UNIT; Start 04/09/17 at 08:00 Insulin Aspart (Novolog Insulin Pen) NOVOLOG *MODERATE* ALGORITHM Q6H SC Last administered on 04/10/17 06:04; Admin Dose 2 UNIT; Start 04/09/17 at 00:00 Diagnostic Test (Pha) (Accu-Chek) 1 ea 02 XX ; Start 04/09/17 at 02:00 Insulin Glargine 10 unit 10 unit QHS SC Last administered on 04/09/17 20:56; Admin Dose 10 UNIT; Start 04/09/17 at 21:00 Dextrose/Sodium Chloride (D5-1/2ns) 1,000 ml @ 50 mls/hr Q20H IV Last administered on 04/09/17 22:16; Admin Dose 50 MLS/HR; Start 04/09/17 at 00:30 Miscellaneous Information 1 ea NOTE XX ; Start 04/09/17 at 00:30 Glucose (Glutose) 15 gm Q15M PRN PO DECREASED GLUCOSE; Start 04/09/17 at 00:30 Glucose (Glutose) 22.5 gm Q15M PRN PO DECREASED GLUCOSE; Start 04/09/17 at 00: 30 Dextrose (D50w Syringe) 25 ml Q15M PRN IV DECREASED GLUCOSE; Start 04/09/17 at 00:30 Dextrose (D50w Syringe) 50 ml Q15M PRN IV DECREASED GLUCOSE; Start 04/09/17 at 00:30 Glucagon (Glucagen) 1 mg Q15M PRN IM DECREASED GLUCOSE; Start 04/09/17 at 00:30 Glucose (Glutose) 15 gm Q15M PRN BUCCAL DECREASED GLUCOSE; Start 04/09/17 at 00 :30 CHOCO MONTOYA Apr 10, 2017 09:27
[2017-04-10] MEDS: METHYLPREDNISOLONE 125 MG INJ IV SCH (09:28)
[2017-04-10] MEDS: CLOPIDOGREL 75 MG TAB PO SCH (09:29)
[2017-04-10] MEDS: FUROSEMIDE 40 MG INJ IV SCH (09:29)
[2017-04-10] MEDS: INSULIN GLARGINE [LANtus] 3 ML PEN SC SCH ×2 (09:31→20:54)
--- NOTE | 2017-04-10 11:13 | CONS ---
Date/Time of Note Date/Time of Note DATE: 04/10/17 TIME: 11:09 Consult Date/Type/Reason Admit Date/Time Apr 08, 2017 at 20:17 Initial Consult Date 04/09/17 Type of Consultation: Pulmonary Ordering Provider: CHOCO MONTOYA Subjective Intubated sedated on mechanical ventilation but follows commands off sedation. Objective Vital Signs Date Time Temp Pulse Resp B/P Pulse Ox O2 Delivery O2 Flow Rate FiO2 04/10/17 10:30 66 23 130/80 98 04/10/17 09:51 50 04/10/17 06:00 Mechanical Ventilator 04/10/17 04:00 97.5 04/08/17 19:10 2.0 Intake and Output 04/09/17 04/09/17 04/10/17 14:59 22:59 06:59 Intake Total 552.1 ml 727.91 ml 640.60 ml Output Total 1600 ml 955 ml 295 ml Balance -1047.9 ml -227.09 ml 345.60 ml Exam GENERAL: Well-nourished well-developed gentleman intubated sedated comfortable VITAL SIGNS: per chart NECK: Supple. No JVD or lymphadenopathy. CARDIAC EXAM: S1, S2. 2/6 systolic ejection murmur CHEST: Diminished air entry bilaterally ABDOMEN: Soft, nontender. No guarding or rebound. Obese EXTREMITIES: No cyanosis, clubbing edema +1 NEUROLOGIC: Generalized weakness. Results/Medications Result Diagram: 04/10/17 0445 04/10/17 0445 Results 24 hrs Laboratory Tests Test 04/09/17 12:04 04/09/17 17:36 04/09/17 20:51 04/09/17 23:50 Bedside Glucose 186 186 167 177 Test 04/10/17 04:45 04/10/17 06:02 White Blood Count 9.1 Red Blood Count 4.77 Hemoglobin 13.7 L Hematocrit 41.9 L Mean Corpuscular Volume 87.8 Mean Corpuscular Hemoglobin 28.7 L Mean Corpuscular Hemoglobin Concent 32.7 Red Cell Distribution Width 13.7 Platelet Count 238 Mean Platelet Volume 12.0 H Neutrophils % 91.9 H Lymphocytes % 5.6 L Monocytes % 1.8 Eosinophils % 0.0 Basophils % 0.1 Nucleated Red Blood Cells % 0.0 Neutrophils # (Manual) 8.3 H Lymphocytes # 0.5 L Monocytes # 0.2 L Eosinophils # 0.0 Basophils # 0.0 Nucleated Red Blood Cells # 0.0 Sodium Level 137 Potassium Level 4.3 Chloride Level 102 Carbon Dioxide Level 27 Anion Gap 12 Blood Urea Nitrogen 37 H Creatinine 2.85 H Glucose Level 173 Calcium Level 8.8 Phosphorus Level 5.2 H Magnesium Level 2.1 Bedside Glucose 154 Medications Current Medications Hydralazine HCl (Apresoline) 10 mg Q4H PRN IV HTN; Start 04/08/17 at 22:30 Furosemide (Lasix) 40 mg DAILY IV Last administered on 04/10/17 09:29; Admin Dose 40 MG; Start 04/08/17 at 23:00 Methylprednisolone Sodium Succinate 80 mg 80 mg Q12 IV Last administered on 09:28; Admin Dose 80 MG; Start 04/09/17 at 09:00 Levofloxacin/ Dextrose 100 ml @ 100 mls/hr Q24H IVPB Last administered on 04/09 23:51; Admin Dose 100 MLS/HR; Start 04/09/17 at 00:00 Propofol (Diprivan) 100 ml @ 4.05 mls/hr Q12H IV Last administered on 06:46; Admin Dose 24.3 MLS/HR; Start 04/09/17 at 00:00 Carvedilol (Coreg) 25 mg BID PO Last administered on 04/10/17 09:29; Admin Dose 25 MG; Start 04/09/17 at 09:00 Clopidogrel Bisulfate (plaVIX) 75 mg DAILY PO Last administered on 04/10/17 09 :29; Admin Dose 75 MG; Start 04/09/17 at 09:00 Insulin Glargine (Lantus) 20 unit DAILY@08 SC Last administered on 04/10/17 09 :31; Admin Dose 20 UNIT; Start 04/09/17 at 08:00 Insulin Aspart (Novolog Insulin Pen) NOVOLOG *MODERATE* ALGORITHM Q6H SC Last administered on 04/10/17 06:04; Admin Dose 2 UNIT; Start 04/09/17 at 00:00 Diagnostic Test (Pha) (Accu-Chek) 1 ea 02 XX ; Start 04/09/17 at 02:00 Insulin Glargine 10 unit 10 unit QHS SC Last administered on 04/09/17 20:56; Admin Dose 10 UNIT; Start 04/09/17 at 21:00 Dextrose/Sodium Chloride (D5-1/2ns) 1,000 ml @ 50 mls/hr Q20H IV Last administered on 04/09/17 22:16; Admin Dose 50 MLS/HR; Start 04/09/17 at 00:30 Miscellaneous Information 1 ea NOTE XX ; Start 04/09/17 at 00:30 Glucose (Glutose) 15 gm Q15M PRN PO DECREASED GLUCOSE; Start 04/09/17 at 00:30 Glucose (Glutose) 22.5 gm Q15M PRN PO DECREASED GLUCOSE; Start 04/09/17 at 00: 30 Dextrose (D50w Syringe) 25 ml Q15M PRN IV DECREASED GLUCOSE; Start 04/09/17 at 00:30 Dextrose (D50w Syringe) 50 ml Q15M PRN IV DECREASED GLUCOSE; Start 04/09/17 at 00:30 Glucagon (Glucagen) 1 mg Q15M PRN IM DECREASED GLUCOSE; Start 04/09/17 at 00:30 Glucose (Glutose) 15 gm Q15M PRN BUCCAL DECREASED GLUCOSE; Start 04/09/17 at 00 :30 Assessment/Plan Chief Complaint/Hosp Course Assessment 1. Acute hypoxemic respiratory failure secondary to volume overload from cardiogenic pulmonary edema 2. Ischemic cardiomyopathy with ejection fraction 40% 3. Chronic kidney disease 4. Underlying obstructive sleep apnea Plan 1. CPAP trial hopefully safely extubate postextubation incentive spirometry 2. Continue gentle diuresis 3. Aspiration precautions 4. Cardiac recommendations and consult Problems: AMI GRIMES MD, [facility] Apr 10, 2017 11:13
--- NOTE | 2017-04-10 11:29 | CONS ---
Date/Time of Note Date/Time of Note DATE: 04/10/17 TIME: 11:25 Assessment/Plan Assessment/Plan Additional Assessment/Plan 1. Acute resp failure intubated multifactorial due to COPD and CHF exacerbation 2. acute kidney injury on CKD due to Cardiorenal syndrome 3. Acute CHF Exacerbation , acute on chronic ,systolic, EF 40% on ECHO 4. Hypertension 5. Hyperlipidemia 6. H/o CAD S/p CABG Plan: continue lasix 40mg IV daily, PCO2 improving on ABG- Solu medrol dose has been reduce, pulmonary following Strict I/o, Muller care Cr 2.85, HCo3 27- continue lasix, will monitor Cr and Electrolytes last ECHO showed EF 40%, renal US unremarkable in 02/2017 continue D51/2 NS at 40 cc/hr will follow up Consultation Date/Type/Reason Admit Date/Time Apr 08, 2017 at 20:17 Initial Consult Date 04/09/17 Type of Consultation: NEPHROLOGY Referring Provider: CHOCO MONTOYA 24 HR Interval Summary Free Text/Dictation pt remains intubated, on ventilator received extra dose of lasix 20mg IV x 1 at 6 pm, BP stable, Cr stable Exam/Review of Systems Vital Signs Vitals Vital Signs Date Time Temp Pulse Resp B/P Pulse Ox O2 Delivery O2 Flow Rate FiO2 04/10/17 10:30 66 23 130/80 98 04/10/17 09:51 50 04/10/17 06:00 Mechanical Ventilator 04/10/17 04:00 97.5 04/08/17 19:10 2.0 Intake and Output 04/09/17 04/09/17 04/10/17 15:00 23:00 07:00 Intake Total 594.43 ml 713.83 ml 654.65 ml Output Total 1600 ml 1005 ml 245 ml Balance -1005.57 ml -291.17 ml 409.65 ml Exam Constitutional: distress Eyes: EOMI, nl conjunctiva ENMT: intubated Respiratory: congested cough, crackles/rales, diminished breath sounds, wheezing Cardiovascular: nl pulses, regular rate and rhythm Gastrointestinal: non-tender, other (Morbidly obese ), soft Extremities: normal pulses Neurological: other (sedated intubated ), unresponsive Lymph: nl lymph nodes Results Result Diagram: 04/10/1744404/10/17444 Results 24 hrs Laboratory Tests Test 8/15/17 12:04 04/09/17 17:36 04/09/17 20:51 04/09/17 23:50 Bedside Glucose 186 186 167 177 Test 04/10/17 04:45 04/10/17 06:02 White Blood Count 9.1 Red Blood Count 4.77 Hemoglobin 13.7 L Hematocrit 41.9 L Mean Corpuscular Volume 87.8 Mean Corpuscular Hemoglobin 28.7 L Mean Corpuscular Hemoglobin Concent 32.7 Red Cell Distribution Width 13.7 Platelet Count 238 Mean Platelet Volume 12.0 H Neutrophils % 91.9 H Lymphocytes % 5.6 L Monocytes % 1.8 Eosinophils % 0.0 Basophils % 0.1 Nucleated Red Blood Cells % 0.0 Neutrophils # (Manual) 8.3 H Lymphocytes # 0.5 L Monocytes # 0.2 L Eosinophils # 0.0 Basophils # 0.0 Nucleated Red Blood Cells # 0.0 Sodium Level 137 Potassium Level 4.3 Chloride Level 102 Carbon Dioxide Level 27 Anion Gap 12 Blood Urea Nitrogen 37 H Creatinine 2.85 H Glucose Level 173 Calcium Level 8.8 Phosphorus Level 5.2 H Magnesium Level 2.1 Bedside Glucose 154 Medications Medications Current Medications Hydralazine HCl (Apresoline) 10 mg Q4H PRN IV HTN; Start 04/08/17 at 22:30 Furosemide 40 mg 40 mg DAILY IV Last administered on 04/10/17 09:29; Admin Dose 40 MG; Start 04/08/17 at 23:00 Levofloxacin/ Dextrose 100 ml @ 100 mls/hr Q24H IVPB Last administered on 04/09 23:51; Admin Dose 100 MLS/HR; Start 04/09/17 at 00:00 Propofol (Diprivan) 100 ml @ 4.05 mls/hr Q12H IV Last administered on 06:46; Admin Dose 24.3 MLS/HR; Start 04/09/17 at 00:00 Carvedilol (Coreg) 25 mg BID PO Last administered on 04/10/17 09:29; Admin Dose 25 MG; Start 04/09/17 at 09:00 Clopidogrel Bisulfate (plaVIX) 75 mg DAILY PO Last administered on 04/10/17 09 :29; Admin Dose 75 MG; Start 04/09/17 at 09:00 Insulin Glargine (Lantus) 20 unit DAILY@08 SC Last administered on 04/10/17 09 :31; Admin Dose 20 UNIT; Start 04/09/17 at 08:00 Insulin Aspart (Novolog Insulin Pen) NOVOLOG *MODERATE* ALGORITHM Q6H SC Last administered on 04/10/17 06:04; Admin Dose 2 UNIT; Start 04/09/17 at 00:00 Diagnostic Test (Pha) (Accu-Chek) 1 ea 02 XX ; Start 04/09/17 at 02:00 Insulin Glargine 10 unit 10 unit QHS SC Last administered on 04/09/17 20:56; Admin Dose 10 UNIT; Start 04/09/17 at 21:00 Dextrose/Sodium Chloride (D5-1/2ns) 1,000 ml @ 50 mls/hr Q20H IV Last administered on 04/09/17 22:16; Admin Dose 50 MLS/HR; Start 04/09/17 at 00:30 Miscellaneous Information 1 ea NOTE XX ; Start 04/09/17 at 00:30 Glucose (Glutose) 15 gm Q15M PRN PO DECREASED GLUCOSE; Start 04/09/17 at 00:30 Glucose (Glutose) 22.5 gm Q15M PRN PO DECREASED GLUCOSE; Start 04/09/17 at 00: 30 Dextrose (D50w Syringe) 25 ml Q15M PRN IV DECREASED GLUCOSE; Start 04/09/17 at 00:30 Dextrose (D50w Syringe) 50 ml Q15M PRN IV DECREASED GLUCOSE; Start 04/09/17 at 00:30 Glucagon (Glucagen) 1 mg Q15M PRN IM DECREASED GLUCOSE; Start 04/09/17 at 00:30 Glucose (Glutose) 15 gm Q15M PRN BUCCAL DECREASED GLUCOSE; Start 04/09/17 at 00 :30 Methylprednisolone Sodium Succinate (Solu-Medrol) 40 mg Q12 IV ; Start 04/10/17 at 21:00; Status ARELI THAYER MD Apr 10, 2017 11:28
[2017-04-10 12:23] LABS: AADO2 Arterial 200.9 mmHg (7.0-24.0); Allen Test ACCEPTAB; Arterial Base Excess 1.7 mmol/L (-3.0-3); Arterial COHb 0.3 % (0.0-3.0); Arterial HCO3 27.4 mmol/L (22.0-26.0); Arterial MetHb 0.2 % (0.0-1.5); Arterial Total Hemglobin 14.5 g/dl (12.0-18.0); Blood Gas PS 10; MODE VENT - CPAP
--- NOTE | 2017-04-10 12:41 | CONS ---
Date/Time of Note Date/Time of Note DATE: 04/10/17 TIME: 12:31 Assessment/Plan Assessment/Plan Additional Assessment/Plan Respiratory failure, vent dependent, likely multifactorial Acute decompensated systolic congestive heart failure Cardiomyopathy with ejection fraction 40% COPD exacerbation Acute on chronic kidney disease -Patient currently intubated, vent management as per our pulmonary colleagues. Blood pressure trend remained stable. Continue beta-blockers heart rate and blood pressure permits. Given acute kidney injury, unable to use RADHA inhibitor at the current time, would start hydralazine for afterload reduction as blood pressure permits. Continue antiplatelet therapy and statin therapy if no complication. Diuretics as per our nephrology colleagues. Consultation Date/Type/Reason Admit Date/Time Apr 08, 2017 at 20:17 Type of Consultation: cv Reason for Consultation Respiratory failure Hx of Present Illness This is a 51-year-old male with past medical history of COPD, congestive heart failure presents with progressive worsening shortness of breath. Patient's respiratory status continued to worsen and patient intubated. History is obtained from the medical chart given patient currently intubated and unable to give history. As per the medical chart, patient with progressive worsening breathing over the past 2 days. Review of patient's previous admission, patient also with history of obstructive sleep apnea and issues of compliance in the past. Unable to be performed at the current time given patient's mental status Past Medical History Sleep apnea Medical History: congestive heart failure, coronary artery disease, diabetes, hypertension Past Surgical History Past Surgical Hx: coronary bypass surgery Social History Alcohol Use: none Smoking Status: Unknown if ever smoked (As per previous H&P, patient active smoker) Drug Use: none, other (Unknown) Exam/Review of Systems Vital Signs Vitals Vital Signs Date Time Temp Pulse Resp B/P Pulse Ox O2 Delivery O2 Flow Rate FiO2 04/10/17 10:30 66 23 130/80 98 04/10/17 09:51 50 04/10/17 06:00 Mechanical Ventilator 04/10/17 04:00 97.5 04/08/17 19:10 2.0 Intake and Output 04/09/17 04/09/17 04/10/17 15:00 23:00 07:00 Intake Total 594.43 ml 713.83 ml 654.65 ml Output Total 1600 ml 1005 ml 245 ml Balance -1005.57 ml -291.17 ml 409.65 ml Exam Intubated and sedated, no apparent distress Head: normocephalic ENMT: intubated Respiratory: other (Coarse breath sounds bilaterally, no wheezing) Cardiovascular: other (S1-S2 heard), regular rate and rhythm Gastrointestinal: bowel sounds, other (No grimacing with palpation), soft Extremities: edema Results Result Diagram: 04/10/17 0445 04/10/17 0445 Results 24 hrs Laboratory Tests Test 04/09/17 17:36 04/09/17 20:51 04/09/17 23:50 04/10/17 04:45 Bedside Glucose 186 167 177 White Blood Count 9.1 Red Blood Count 4.77 Hemoglobin 13.7 L Hematocrit 41.9 L Mean Corpuscular Volume 87.8 Mean Corpuscular Hemoglobin 28.7 L Mean Corpuscular Hemoglobin Concent 32.7 Red Cell Distribution Width 13.7 Platelet Count 238 Mean Platelet Volume 12.0 H Neutrophils % 91.9 H Lymphocytes % 5.6 L Monocytes % 1.8 Eosinophils % 0.0 Basophils % 0.1 Nucleated Red Blood Cells % 0.0 Neutrophils # (Manual) 8.3 H Lymphocytes # 0.5 L Monocytes # 0.2 L Eosinophils # 0.0 Basophils # 0.0 Nucleated Red Blood Cells # 0.0 Sodium Level 137 Potassium Level 4.3 Chloride Level 102 Carbon Dioxide Level 27 Anion Gap 12 Blood Urea Nitrogen 37 H Creatinine 2.85 H Glucose Level 173 Calcium Level 8.8 Phosphorus Level 5.2 H Magnesium Level 2.1 Test 04/10/17 06:02 04/10/17 12:00 04/10/17 12:15 Bedside Glucose 154 145 Blood Gas Specimen Source Blood arterial Arterial Blood Date Drawn 04/10/2017 12:10:43 PM Arterial Blood pH (Temp corrected) 7.383 Arterial Blood pCO2 (Temp correct) 47.0 H Arterial Blood pO2 (Temp corrected) 102.7 H Arterial Blood HCO3 27.4 H Arterial Blood Base Excess 1.7 Arterial Blood Oxygen Saturation 97.5 Luis Armando Test ACCEPTAB Arterial Blood Gas Puncture Site Right Radial Arterial Blood Carboxyhemoglobin 0.3 Arterial Blood Methemoglobin 0.2 Blood Gas A-a O2 Differential 200.9 H Oxyhemoglobin Percent 97.0 Total Hemoglobin 14.5 Blood Gas Temperature 37.0 Blood Gas Actual Respiration Rate 22 Blood Gas Modality VENT - CPAP FiO2 50.0 Blood Gas Low PEEP Setting 5.0 Blood Gas Pressure Support 10 Blood Gas Notified Whom JLD Blood Gas Notified Time 04/10/2017 12:23:29 PM Medications Medications Current Medications Hydralazine HCl (Apresoline) 10 mg Q4H PRN IV HTN; Start 04/08/17 at 22:30 Furosemide 40 mg 40 mg DAILY IV Last administered on 04/10/17 09:29; Admin Dose 40 MG; Start 04/08/17 at 23:00 Levofloxacin/ Dextrose 100 ml @ 100 mls/hr Q24H IVPB Last administered on 04/09 23:51; Admin Dose 100 MLS/HR; Start 04/09/17 at 00:00 Propofol (Diprivan) 100 ml @ 4.05 mls/hr Q12H IV Last administered on 06:46; Admin Dose 24.3 MLS/HR; Start 04/09/17 at 00:00 Carvedilol (Coreg) 25 mg BID PO Last administered on 04/10/17 09:29; Admin Dose 25 MG; Start 04/09/17 at 09:00 Clopidogrel Bisulfate (plaVIX) 75 mg DAILY PO Last administered on 04/10/17 09 :29; Admin Dose 75 MG; Start 04/09/17 at 09:00 Insulin Glargine (Lantus) 20 unit DAILY@08 SC Last administered on 04/10/17 09 :31; Admin Dose 20 UNIT; Start 04/09/17 at 08:00 Insulin Aspart (Novolog Insulin Pen) NOVOLOG *MODERATE* ALGORITHM Q6H SC Last administered on 04/10/17 06:04; Admin Dose 2 UNIT; Start 04/09/17 at 00:00 Diagnostic Test (Pha) (Accu-Chek) 1 ea 02 XX ; Start 04/09/17 at 02:00 Insulin Glargine 10 unit 10 unit QHS SC Last administered on 04/09/17 20:56; Admin Dose 10 UNIT; Start 04/09/17 at 21:00 Dextrose/Sodium Chloride (D5-1/2ns) 1,000 ml @ 50 mls/hr Q20H IV Last administered on 04/09/17 22:16; Admin Dose 50 MLS/HR; Start 04/09/17 at 00:30 Miscellaneous Information 1 ea NOTE XX ; Start 04/09/17 at 00:30 Glucose (Glutose) 15 gm Q15M PRN PO DECREASED GLUCOSE; Start 04/09/17 at 00:30 Glucose (Glutose) 22.5 gm Q15M PRN PO DECREASED GLUCOSE; Start 04/09/17 at 00: 30 Dextrose (D50w Syringe) 25 ml Q15M PRN IV DECREASED GLUCOSE; Start 04/09/17 at 00:30 Dextrose (D50w Syringe) 50 ml Q15M PRN IV DECREASED GLUCOSE; Start 04/09/17 at 00:30 Glucagon (Glucagen) 1 mg Q15M PRN IM DECREASED GLUCOSE; Start 04/09/17 at 00:30 Glucose (Glutose) 15 gm Q15M PRN BUCCAL DECREASED GLUCOSE; Start 04/09/17 at 00 :30 Methylprednisolone Sodium Succinate (Solu-Medrol) 40 mg Q12 IV ; Start 04/10/17 at 21:00 Procedures Procedures ECG demonstrates sinus rhythm 85 bpm, QRS 114 ms, incomplete left bundle, nonspecific T-wave abnormalities Ronald Grullon DO Apr 10, 2017 12:40
[2017-04-10] MEDS: DEXTROSE 5%-0.45% NACL 1,000 ML IV SCH (18:24)
[2017-04-10] MEDS: METHYLPREDNISOLONE 40 MG INJ IV SCH (20:46)
[2017-04-10] MEDS: LEVOFLOXACIN 500MG/D5W (PMX) 100 ML IVPB SCH (23:57)
[2017-04-11] VITALS (19 sets, daily range): BP systolic 119–144; BP diastolic 61–84; PULSE 60–130; RESP 18–25
[2017-04-11] MEDS: ACCU-CHEK XX SCH (02:19)
[2017-04-11 05:16] LABS: ABNORMAL IP MESSAGE 1; BASOPHILS % 0.1 % (0.0-2.0); HEMATOCRIT 41.4 % (42.0-52.0); HEMOGLOBIN 12.8 g/dl (14.0-18.0); LYMPHOCYTES # 0.5 10^3/ul (0.8-2.9); LYMPHOCYTES % 5.1 % (15.0-51.0); MEAN CORPUSCULAR HEMOGLOBIN 28.3 pg (29.0-33.0); MEAN CORPUSCULAR HGB CONC 30.9 g/dl (32.0-37.0); MEAN CORPUSCULAR VOLUME 91.4 fl (82.0-101.0); MEAN PLATELET VOLUME 11.9 fl (7.4-10.4); MONOCYTE # 0.2 10^3/ul (0.3-0.9); MONOCYTES % 2.1 % (0.0-11.0); NEUTROPHILS % 92.3 % (39.0-77.0); PLATELET COUNT 227 10^3/UL (140-415); POSITIVE DIFF @See below; RED BLOOD COUNT 4.53 10^6/ul (4.70-6.10); RED CELL DISTRIBUTION WIDTH 14.6 % (11.5-14.5); WHITE BLOOD COUNT 10.1 10^3/ul (4.8-10.8)
[2017-04-11 05:43] LABS: CALCIUM 8.2 mg/dl (8.4-10.2); CREATININE 3.12 mg/dl (0.61-1.24); POTASSIUM 4.9 mmol/L (3.5-5.1)
[2017-04-11] MEDS: INSULIN ASPART [NOVOLOG] 3 ML PEN SC SCH ×3 (07:35→17:55)
[2017-04-11] MEDS: CLOPIDOGREL 75 MG TAB PO SCH (08:03)
[2017-04-11] MEDS: METHYLPREDNISOLONE 40 MG INJ IV SCH ×2 (08:03→20:04)
[2017-04-11] MEDS: FUROSEMIDE 40 MG INJ IV SCH (08:03)
[2017-04-11] MEDS: INSULIN GLARGINE [LANtus] 3 ML PEN SC SCH ×2 (08:05→20:12)
--- NOTE | 2017-04-11 09:43 | PN ---
Date/Time of Note Date/Time of Note DATE: 04/11/17 TIME: 09:33 Assessment/Plan VTE Prophylaxis VTE Prophylaxis Intervention: SCD's Lines/Catheters IV Catheter Type (from Nrs): Peripheral IV Urinary Cath still in place: Yes Reason Cath still needed: urinary retention Assessment/Plan Chief Complaint/Hosp Course Assessment/Plan: 51-year-old male presents with: 1. Hypercapnic and hypoxic respiratory failure, s/p intubation, and now extubated yesterday. Likely secondary to combination of COPD and CHF exacerbation. -Continue oxygen supplementation -Continue breathing treatments, steroid, antibiotic and diuretics -Follow-up pulmonary recommendation 2. CAD with history of CABG -Continue home medications including his Plavix -Follow-up cardiology consult 3. Ischemic cardiomyopathy with systolic dysfunction, with EF of 40% per recent 2D echo 2 weeks ago -Continue home cardiac medications -Follow-up cardiology consult recommendations 4. Acute CHF exacerbation, systolic. BNP on admission was 13,200 -Continue diuretic dosage per renal recommendations for now, and vent support -Monitor ins and outs. 5. History of diabetes: recent A1c 7.9 -Insulin sliding scale while in house 6. Obstructive sleep apnea: Currently intubated -Continue vent support. Follow-up pulmonary consult recommendation 7. Hypertension: BP improved now -Continue home meds with adjustment as needed 8. CKD: Stable, but creatinine is elevated at 2.7->2.85->3.12. Component of cardiorenal syndrome as well. -Avoid nephrotoxins -Follow-up nephrology consult recommendations Critical care time spent on patient care today equals 40 minutes. Problems: Subjective 24 Hr Interval Summary Free Text/Dictation Patient extubated yesterday, denies any chest pain. Exam/Review of Systems Vital Signs Vitals Vital Signs Date Time Temp Pulse Resp B/P Pulse Ox O2 Delivery O2 Flow Rate FiO2 04/11/17 08:00 63 20 123/83 93 04/11/17 08:00 3.0 04/11/17 06:00 Nasal Cannula 04/11/17 04:00 98.5 04/11/17 03:38 31 Intake and Output 04/10/17 04/10/17 04/11/17 15:00 23:00 07:00 Intake Total 471.8 ml 445 ml 500 ml Output Total 555 ml 380 ml 425 ml Balance -83.2 ml 65 ml 75 ml Exam Constitutional: Lethargic, but responsive, answers questions Head: atraumatic, normocephalic Eyes: PERRL Respiratory: some diminished breath sounds Cardiovascular: S1, S2 heard Gastrointestinal: other (Morbidly obese. Less anasarca) Extremities: edema Results Result Diagram: 04/11/17 0445 04/11/17 0445 Results 24 hrs Laboratory Tests Test 04/10/17 12:00 04/10/17 12:15 04/10/17 17:51 04/10/17 20:49 Blood Gas Specimen Source Blood arterial Arterial Blood Date Drawn 04/10/2017 12:10:43 PM Arterial Blood pH (Temp corrected) 7.383 Arterial Blood pCO2 (Temp correct) 47.0 H Arterial Blood pO2 (Temp corrected) 102.7 H Arterial Blood HCO3 27.4 H Arterial Blood Base Excess 1.7 Arterial Blood Oxygen Saturation 97.5 Luis Armando Test ACCEPTAB Arterial Blood Gas Puncture Site Right Radial Arterial Blood Carboxyhemoglobin 0.3 Arterial Blood Methemoglobin 0.2 Blood Gas A-a O2 Differential 200.9 H Oxyhemoglobin Percent 97.0 Total Hemoglobin 14.5 Blood Gas Temperature 37.0 Blood Gas Actual Respiration Rate 22 Blood Gas Modality VENT - CPAP FiO2 50.0 Blood Gas Low PEEP Setting 5.0 Blood Gas Pressure Support 10 Blood Gas Notified Whom JLD Blood Gas Notified Time 04/10/2017 12:23:29 PM Bedside Glucose 145 139 175 Test 04/11/17 02:24 04/11/17 04:45 04/11/17 07:39 Bedside Glucose 153 119 White Blood Count 10.1 Red Blood Count 4.53 L Hemoglobin 12.8 L Hematocrit 41.4 L Mean Corpuscular Volume 91.4 Mean Corpuscular Hemoglobin 28.3 L Mean Corpuscular Hemoglobin Concent 30.9 L Red Cell Distribution Width 14.6 H Platelet Count 227 Mean Platelet Volume 11.9 H Neutrophils % 92.3 H Lymphocytes % 5.1 L Monocytes % 2.1 Eosinophils % 0.0 Basophils % 0.1 Nucleated Red Blood Cells % 0.0 Neutrophils # (Manual) 9.3 H Lymphocytes # 0.5 L Monocytes # 0.2 L Eosinophils # 0.0 Basophils # 0.0 Nucleated Red Blood Cells # 0.0 Sodium Level 138 Potassium Level 4.9 Chloride Level 103 Carbon Dioxide Level 28 Anion Gap 12 Blood Urea Nitrogen 51 H Creatinine 3.12 H Glucose Level 162 Calcium Level 8.2 L Medications Medications Current Medications Hydralazine HCl (Apresoline) 10 mg Q4H PRN IV HTN; Start 04/08/17 at 22:30 Furosemide 40 mg 40 mg DAILY IV Last administered on 04/11/17 08:03; Admin Dose 40 MG; Start 04/08/17 at 23:00 Levofloxacin/ Dextrose 100 ml @ 100 mls/hr Q24H IVPB Last administered on 04/10 23:57; Admin Dose 100 MLS/HR; Start 04/09/17 at 00:00 Propofol (Diprivan) 100 ml @ 4.05 mls/hr Q12H IV Last administered on 06:46; Admin Dose 24.3 MLS/HR; Start 04/09/17 at 00:00 Carvedilol (Coreg) 25 mg BID PO Last administered on 04/11/17 08:03; Admin Dose 25 MG; Start 04/09/17 at 09:00 Clopidogrel Bisulfate (plaVIX) 75 mg DAILY PO Last administered on 04/11/17 08 :03; Admin Dose 75 MG; Start 04/09/17 at 09:00 Insulin Glargine (Lantus) 20 unit DAILY@08 SC Last administered on 04/11/17 08 :05; Admin Dose 20 UNIT; Start 04/09/17 at 08:00 Diagnostic Test (Pha) (Accu-Chek) 1 ea 02 XX Last administered on 04/11/17 02: 19; Admin Dose 1 EA; Start 04/09/17 at 02:00 Insulin Glargine 10 unit 10 unit QHS SC Last administered on 04/10/17 20:54; Admin Dose 10 UNIT; Start 04/09/17 at 21:00 Dextrose/Sodium Chloride (D5-1/2ns) 1,000 ml @ 50 mls/hr Q20H IV Last administered on 04/10/17 18:24; Admin Dose 50 MLS/HR; Start 04/09/17 at 00:30 Miscellaneous Information 1 ea NOTE XX ; Start 04/09/17 at 00:30 Glucose (Glutose) 15 gm Q15M PRN PO DECREASED GLUCOSE; Start 04/09/17 at 00:30 Glucose (Glutose) 22.5 gm Q15M PRN PO DECREASED GLUCOSE; Start 04/09/17 at 00: 30 Dextrose (D50w Syringe) 25 ml Q15M PRN IV DECREASED GLUCOSE; Start 04/09/17 at 00:30 Dextrose (D50w Syringe) 50 ml Q15M PRN IV DECREASED GLUCOSE; Start 04/09/17 at 00:30 Glucagon (Glucagen) 1 mg Q15M PRN IM DECREASED GLUCOSE; Start 04/09/17 at 00:30 Glucose (Glutose) 15 gm Q15M PRN BUCCAL DECREASED GLUCOSE; Start 04/09/17 at 00 :30 Methylprednisolone Sodium Succinate (Solu-Medrol) 40 mg Q12 IV Last administered on 04/11/17 08:03; Admin Dose 40 MG; Start 04/10/17 at 21:00 Hydralazine HCl (Apresoline) 10 mg Q8 PO Last administered on 04/11/17 05:54; Admin Dose 10 MG; Start 04/10/17 at 14:00 CHOCO MONTOYA Apr 11, 2017 09:43
--- NOTE | 2017-04-11 10:57 | RADRPT ---
PROCEDURE: XR Chest. CLINICAL INDICATION: pna chf TECHNIQUE: Single frontal view of the chest was obtained. COMPARISON: None. FINDINGS: Sternotomy wires and clips consistent with CABG are again noted. There has been interval extubation and removal of the enteric tube seen previously. There is stable severe cardiomegaly and moderate pulmonary vascular congestion. There is a persistent retrocardiac opacity due to atelectasis, infiltrate, and / or effusion. The aortic arch is calcified. IMPRESSION: Interval extubation and removal of the enteric tube seen previously. Stable severe cardiomegaly and moderate pulmonary vascular congestion. Stable retrocardiac opacity due to atelectasis, infiltrate, and / or effusion. RPTAT: EE Physician Sarah Date Time Electronically viewed and signed by Physician Sarah on 04/11/2017 08:13 /
--- NOTE | 2017-04-11 11:35 | CONS ---
Date/Time of Note Date/Time of Note DATE: 04/11/17 TIME: 11:34 Consult Date/Type/Reason Admit Date/Time Apr 08, 2017 at 20:17 Initial Consult Date 04/09/17 Type of Consultation: Pulmonary Ordering Provider: CHOCO MONTOYA Subjective Patient stable this morning awake alert and oriented. Following extubation. Objective Vital Signs Date Time Temp Pulse Resp B/P Pulse Ox O2 Delivery O2 Flow Rate FiO2 04/11/17 08:00 63 20 123/83 93 04/11/17 08:00 3.0 04/11/17 08:00 98.0 04/11/17 06:00 Nasal Cannula 04/11/17 03:38 31 Intake and Output 04/10/17 04/10/17 04/11/17 15:00 23:00 07:00 Intake Total 471.8 ml 445 ml 500 ml Output Total 555 ml 380 ml 425 ml Balance -83.2 ml 65 ml 75 ml Exam GENERAL: Well-nourished well-developed gentleman on nasal cannula O2 VITAL SIGNS: per chart NECK: Supple. No JVD or lymphadenopathy. CARDIAC EXAM: S1, S2. 2/6 systolic ejection murmur CHEST: Diminished air entry bilaterally ABDOMEN: Soft, nontender. No guarding or rebound. Obese EXTREMITIES: No cyanosis, clubbing edema +1 NEUROLOGIC: Generalized weakness. Results/Medications Result Diagram: 04/11/17 0445 04/11/17 0445 Results 24 hrs Laboratory Tests Test 04/10/17 12:00 04/10/17 12:15 04/10/17 17:51 04/10/17 20:49 Blood Gas Specimen Source Blood arterial Arterial Blood Date Drawn 04/10/2017 12:10:43 PM Arterial Blood pH (Temp corrected) 7.383 Arterial Blood pCO2 (Temp correct) 47.0 H Arterial Blood pO2 (Temp corrected) 102.7 H Arterial Blood HCO3 27.4 H Arterial Blood Base Excess 1.7 Arterial Blood Oxygen Saturation 97.5 Luis Armando Test ACCEPTAB Arterial Blood Gas Puncture Site Right Radial Arterial Blood Carboxyhemoglobin 0.3 Arterial Blood Methemoglobin 0.2 Blood Gas A-a O2 Differential 200.9 H Oxyhemoglobin Percent 97.0 Total Hemoglobin 14.5 Blood Gas Temperature 37.0 Blood Gas Actual Respiration Rate 22 Blood Gas Modality VENT - CPAP FiO2 50.0 Blood Gas Low PEEP Setting 5.0 Blood Gas Pressure Support 10 Blood Gas Notified Whom JLD Blood Gas Notified Time 04/10/2017 12:23:29 PM Bedside Glucose 145 139 175 Test 04/11/17 02:24 04/11/17 04:45 04/11/17 07:39 04/11/17 11:08 Bedside Glucose 153 119 175 White Blood Count 10.1 Red Blood Count 4.53 L Hemoglobin 12.8 L Hematocrit 41.4 L Mean Corpuscular Volume 91.4 Mean Corpuscular Hemoglobin 28.3 L Mean Corpuscular Hemoglobin Concent 30.9 L Red Cell Distribution Width 14.6 H Platelet Count 227 Mean Platelet Volume 11.9 H Neutrophils % 92.3 H Lymphocytes % 5.1 L Monocytes % 2.1 Eosinophils % 0.0 Basophils % 0.1 Nucleated Red Blood Cells % 0.0 Neutrophils # (Manual) 9.3 H Lymphocytes # 0.5 L Monocytes # 0.2 L Eosinophils # 0.0 Basophils # 0.0 Nucleated Red Blood Cells # 0.0 Sodium Level 138 Potassium Level 4.9 Chloride Level 103 Carbon Dioxide Level 28 Anion Gap 12 Blood Urea Nitrogen 51 H Creatinine 3.12 H Glucose Level 162 Calcium Level 8.2 L Medications Current Medications Hydralazine HCl 10 mg 10 mg Q4H PRN IV HTN; Start 04/08/17 at 22:30 Propofol (Diprivan) 100 ml @ 4.05 mls/hr Q12H IV Last administered on 06:46; Admin Dose 24.3 MLS/HR; Start 04/09/17 at 00:00 Carvedilol (Coreg) 25 mg BID PO Last administered on 04/11/17 08:03; Admin Dose 25 MG; Start 04/09/17 at 09:00 Clopidogrel Bisulfate (plaVIX) 75 mg DAILY PO Last administered on 04/11/17 08 :03; Admin Dose 75 MG; Start 04/09/17 at 09:00 Insulin Glargine (Lantus) 20 unit DAILY@08 SC Last administered on 04/11/17 08 :05; Admin Dose 20 UNIT; Start 04/09/17 at 08:00 Diagnostic Test (Pha) (Accu-Chek) 1 ea 02 XX Last administered on 04/11/17 02: 19; Admin Dose 1 EA; Start 04/09/17 at 02:00 Insulin Glargine 10 unit 10 unit QHS SC Last administered on 04/10/17 20:54; Admin Dose 10 UNIT; Start 04/09/17 at 21:00 Dextrose/Sodium Chloride (D5-1/2ns) 1,000 ml @ 50 mls/hr Q20H IV Last administered on 04/10/17 18:24; Admin Dose 50 MLS/HR; Start 04/09/17 at 00:30 Miscellaneous Information 1 ea NOTE XX ; Start 04/09/17 at 00:30 Glucose (Glutose) 15 gm Q15M PRN PO DECREASED GLUCOSE; Start 04/09/17 at 00:30 Glucose (Glutose) 22.5 gm Q15M PRN PO DECREASED GLUCOSE; Start 04/09/17 at 00: 30 Dextrose (D50w Syringe) 25 ml Q15M PRN IV DECREASED GLUCOSE; Start 04/09/17 at 00:30 Dextrose (D50w Syringe) 50 ml Q15M PRN IV DECREASED GLUCOSE; Start 04/09/17 at 00:30 Glucagon (Glucagen) 1 mg Q15M PRN IM DECREASED GLUCOSE; Start 04/09/17 at 00:30 Glucose (Glutose) 15 gm Q15M PRN BUCCAL DECREASED GLUCOSE; Start 04/09/17 at 00 :30 Methylprednisolone Sodium Succinate (Solu-Medrol) 40 mg Q12 IV Last administered on 04/11/17 08:03; Admin Dose 40 MG; Start 04/10/17 at 21:00 Hydralazine HCl (Apresoline) 10 mg Q8 PO Last administered on 04/11/17 05:54; Admin Dose 10 MG; Start 04/10/17 at 14:00 Furosemide (Lasix) 40 mg DAILY PO ; Start 04/12/17 at 09:00 Levofloxacin (Levaquin) 500 mg DAILY@06 PO ; Start 04/12/17 at 06:00 Assessment/Plan Chief Complaint/Hosp Course Assessment 1. Acute hypoxemic respiratory failure secondary to volume overload from cardiogenic pulmonary edema now extubated on nasal cannula 2. Ischemic cardiomyopathy with ejection fraction 40% 3. Chronic kidney disease 4. Underlying obstructive sleep apnea Plan 1. Incentive spirometry 2. Continue gentle diuresis 3. Aspiration precautions 4. Cardiac recommendations and consult 5. PT eval encourage out of bed Transfer to telemetry Problems: VADGAMA,AMI V. MD, [facility] Apr 11, 2017 11:35
[2017-04-11] MEDS: PROPOFOL 100 ML IV SCH (12:00)
[2017-04-11] MEDS: DEXTROSE 5%-0.45% NACL 1,000 ML IV SCH (12:13)
--- NOTE | 2017-04-11 15:46 | CONS ---
Date/Time of Note Date/Time of Note DATE: 04/11/17 TIME: 15:42 Assessment/Plan Assessment/Plan Additional Assessment/Plan ASSESSMENT: 1. Acute resp failure intubated multifactorial due to COPD and CHF exacerbation - s/p Extubation on 04/10/17 2. acute kidney injury on CKD due to Cardiorenal syndrome 3. Acute CHF Exacerbation , acute on chronic ,systolic, EF 40% on ECHO 4. Hypertension 5. Hyperlipidemia 6. H/o CAD S/p CABG Plan: change lasix to 40mg po daily pt extubated, doing well, plan is to transfer to telemetry floor last ECHO showed EF 40%, renal US unremarkable in 02/2017 continue D51/2 NS at 40 cc/hr will follow up Consultation Date/Type/Reason Admit Date/Time Apr 08, 2017 at 20:17 Initial Consult Date 04/09/17 Type of Consultation: NEPHROLOGY Referring Provider: CHOCO MONTOYA 24 HR Interval Summary Free Text/Dictation Cr bumped to 3.12, BP stable, extubated, stable, plan for transfer to telemetry floor Exam/Review of Systems Vital Signs Vitals Vital Signs Date Time Temp Pulse Resp B/P Pulse Ox O2 Delivery O2 Flow Rate FiO2 04/11/17 15:25 98.3 63 19 130/66 97 04/11/17 08:00 3.0 04/11/17 06:00 Nasal Cannula 04/11/17 03:38 31 Intake and Output 04/10/17 04/10/17 04/11/17 15:00 23:00 07:00 Intake Total 471.8 ml 445 ml 500 ml Output Total 555 ml 380 ml 425 ml Balance -83.2 ml 65 ml 75 ml Exam Constitutional: extubated, no acute distress Eyes: [place], EOMI, no JVD Respiratory: congested cough, crackles/rales, diminished breath sounds, wheezing Cardiovascular: nl pulses, regular rate and rhythm Gastrointestinal: non-tender, other (Morbidly obese ), soft Extremities: normal pulses Results Result Diagram: 04/11/17 0445 04/11/17 0445 Results 24 hrs Laboratory Tests Test 04/10/17 17:51 04/10/17 20:49 04/11/17 02:24 04/11/17 04:45 Bedside Glucose 139 175 153 White Blood Count 10.1 Red Blood Count 4.53 L Hemoglobin 12.8 L Hematocrit 41.4 L Mean Corpuscular Volume 91.4 Mean Corpuscular Hemoglobin 28.3 L Mean Corpuscular Hemoglobin Concent 30.9 L Red Cell Distribution Width 14.6 H Platelet Count 227 Mean Platelet Volume 11.9 H Neutrophils % 92.3 H Lymphocytes % 5.1 L Monocytes % 2.1 Eosinophils % 0.0 Basophils % 0.1 Nucleated Red Blood Cells % 0.0 Neutrophils # (Manual) 9.3 H Lymphocytes # 0.5 L Monocytes # 0.2 L Eosinophils # 0.0 Basophils # 0.0 Nucleated Red Blood Cells # 0.0 Sodium Level 138 Potassium Level 4.9 Chloride Level 103 Carbon Dioxide Level 28 Anion Gap 12 Blood Urea Nitrogen 51 H Creatinine 3.12 H Glucose Level 162 Calcium Level 8.2 L Test 04/11/17 07:39 04/11/17 11:08 04/11/17 12:17 Bedside Glucose 119 175 157 Medications Medications Current Medications Hydralazine HCl 10 mg 10 mg Q4H PRN IV HTN; Start 04/08/17 at 22:30 Propofol (Diprivan) 100 ml @ 4.05 mls/hr Q12H IV Last administered on 06:46; Admin Dose 24.3 MLS/HR; Start 04/09/17 at 00:00 Carvedilol (Coreg) 25 mg BID PO Last administered on 04/11/17 08:03; Admin Dose 25 MG; Start 04/09/17 at 09:00 Clopidogrel Bisulfate (plaVIX) 75 mg DAILY PO Last administered on 04/11/17 08 :03; Admin Dose 75 MG; Start 04/09/17 at 09:00 Insulin Glargine (Lantus) 20 unit DAILY@08 SC Last administered on 04/11/17 08 :05; Admin Dose 20 UNIT; Start 04/09/17 at 08:00 Diagnostic Test (Pha) (Accu-Chek) 1 ea 02 XX Last administered on 04/11/17 02: 19; Admin Dose 1 EA; Start 04/09/17 at 02:00 Insulin Glargine 10 unit 10 unit QHS SC Last administered on 04/10/17 20:54; Admin Dose 10 UNIT; Start 04/09/17 at 21:00 Dextrose/Sodium Chloride (D5-1/2ns) 1,000 ml @ 50 mls/hr Q20H IV Last administered on 04/11/17 12:13; Admin Dose 50 MLS/HR; Start 04/09/17 at 00:30 Miscellaneous Information 1 ea NOTE XX ; Start 04/09/17 at 00:30 Glucose (Glutose) 15 gm Q15M PRN PO DECREASED GLUCOSE; Start 04/09/17 at 00:30 Glucose (Glutose) 22.5 gm Q15M PRN PO DECREASED GLUCOSE; Start 04/09/17 at 00: 30 Dextrose (D50w Syringe) 25 ml Q15M PRN IV DECREASED GLUCOSE; Start 04/09/17 at 00:30 Dextrose (D50w Syringe) 50 ml Q15M PRN IV DECREASED GLUCOSE; Start 04/09/17 at 00:30 Glucagon (Glucagen) 1 mg Q15M PRN IM DECREASED GLUCOSE; Start 04/09/17 at 00:30 Glucose (Glutose) 15 gm Q15M PRN BUCCAL DECREASED GLUCOSE; Start 04/09/17 at 00 :30 Methylprednisolone Sodium Succinate (Solu-Medrol) 40 mg Q12 IV Last administered on 04/11/17 08:03; Admin Dose 40 MG; Start 04/10/17 at 21:00 Hydralazine HCl (Apresoline) 10 mg Q8 PO Last administered on 04/11/17 05:54; Admin Dose 10 MG; Start 04/10/17 at 14:00 Furosemide (Lasix) 40 mg DAILY PO ; Start 04/12/17 at 09:00 Levofloxacin (Levaquin) 500 mg DAILY@06 PO ; Start 04/12/17 at 06:00 ARELI FRANKLIN MD Apr 11, 2017 15:45
--- NOTE | 2017-04-11 16:08 | CONS ---
Date/Time of Note Date/Time of Note DATE: 04/11/17 TIME: 16:06 Assessment/Plan Assessment/Plan Additional Assessment/Plan Respiratory failure, status post extubation Acute decompensated systolic congestive heart failure Cardiomyopathy with ejection fraction 40% COPD exacerbation Acute on chronic kidney disease Active tobacco use -Patient status post extubation with improvement in respiratory status. Given renal dysfunction, diuretics as per nephrology colleagues. Continue Coreg, hydralazine, would add Isordil, continue aspirin and statin therapy. Smoking cessation counseling Consultation Date/Type/Reason Admit Date/Time Apr 08, 2017 at 20:17 Initial Consult Date 04/09/17 Type of Consultation: cv Referring Provider: CHOCO MONTOYA 24 HR Interval Summary Free Text/Dictation Patient extubated yesterday, currently denies shortness of breath or chest pain. He does admit he still actively smokes Exam/Review of Systems Vital Signs Vitals Vital Signs Date Time Temp Pulse Resp B/P Pulse Ox O2 Delivery O2 Flow Rate FiO2 04/11/17 16:01 69 04/11/17 15:25 98.3 19 130/66 97 04/11/17 08:00 3.0 04/11/17 06:00 Nasal Cannula 04/11/17 03:38 31 Intake and Output 04/10/17 04/10/17 04/11/17 15:00 23:00 07:00 Intake Total 471.8 ml 445 ml 500 ml Output Total 555 ml 380 ml 425 ml Balance -83.2 ml 65 ml 75 ml Exam No apparent distress, no dyspnea with speaking Constitutional: alert, obese, oriented Head: normocephalic Respiratory: other (Coarse breath sounds bilaterally, no wheezing) Cardiovascular: other (S1-S2 heard), regular rate and rhythm Gastrointestinal: bowel sounds, non-tender, soft Extremities: edema Results Result Diagram: 04/11/17 0445 04/11/17 0445 Results 24 hrs Laboratory Tests Test 04/10/17 17:51 04/10/17 20:49 04/11/17 02:24 04/11/17 04:45 Bedside Glucose 139 175 153 White Blood Count 10.1 Red Blood Count 4.53 L Hemoglobin 12.8 L Hematocrit 41.4 L Mean Corpuscular Volume 91.4 Mean Corpuscular Hemoglobin 28.3 L Mean Corpuscular Hemoglobin Concent 30.9 L Red Cell Distribution Width 14.6 H Platelet Count 227 Mean Platelet Volume 11.9 H Neutrophils % 92.3 H Lymphocytes % 5.1 L Monocytes % 2.1 Eosinophils % 0.0 Basophils % 0.1 Nucleated Red Blood Cells % 0.0 Neutrophils # (Manual) 9.3 H Lymphocytes # 0.5 L Monocytes # 0.2 L Eosinophils # 0.0 Basophils # 0.0 Nucleated Red Blood Cells # 0.0 Sodium Level 138 Potassium Level 4.9 Chloride Level 103 Carbon Dioxide Level 28 Anion Gap 12 Blood Urea Nitrogen 51 H Creatinine 3.12 H Glucose Level 162 Calcium Level 8.2 L Test 04/11/17 07:39 04/11/17 11:08 04/11/17 12:17 Bedside Glucose 119 175 157 Medications Medications Current Medications Hydralazine HCl 10 mg 10 mg Q4H PRN IV HTN; Start 04/08/17 at 22:30 Propofol (Diprivan) 100 ml @ 4.05 mls/hr Q12H IV Last administered on 06:46; Admin Dose 24.3 MLS/HR; Start 04/09/17 at 00:00 Carvedilol (Coreg) 25 mg BID PO Last administered on 04/11/17 08:03; Admin Dose 25 MG; Start 04/09/17 at 09:00 Clopidogrel Bisulfate (plaVIX) 75 mg DAILY PO Last administered on 04/11/17 08 :03; Admin Dose 75 MG; Start 04/09/17 at 09:00 Insulin Glargine (Lantus) 20 unit DAILY@08 SC Last administered on 04/11/17 08 :05; Admin Dose 20 UNIT; Start 04/09/17 at 08:00 Diagnostic Test (Pha) (Accu-Chek) 1 ea 02 XX Last administered on 04/11/17 02: 19; Admin Dose 1 EA; Start 04/09/17 at 02:00 Insulin Glargine 10 unit 10 unit QHS SC Last administered on 04/10/17 20:54; Admin Dose 10 UNIT; Start 04/09/17 at 21:00 Dextrose/Sodium Chloride (D5-1/2ns) 1,000 ml @ 50 mls/hr Q20H IV Last administered on 04/11/17 12:13; Admin Dose 50 MLS/HR; Start 04/09/17 at 00:30 Miscellaneous Information 1 ea NOTE XX ; Start 04/09/17 at 00:30 Glucose (Glutose) 15 gm Q15M PRN PO DECREASED GLUCOSE; Start 04/09/17 at 00:30 Glucose (Glutose) 22.5 gm Q15M PRN PO DECREASED GLUCOSE; Start 04/09/17 at 00: 30 Dextrose (D50w Syringe) 25 ml Q15M PRN IV DECREASED GLUCOSE; Start 04/09/17 at 00:30 Dextrose (D50w Syringe) 50 ml Q15M PRN IV DECREASED GLUCOSE; Start 04/09/17 at 00:30 Glucagon (Glucagen) 1 mg Q15M PRN IM DECREASED GLUCOSE; Start 04/09/17 at 00:30 Glucose (Glutose) 15 gm Q15M PRN BUCCAL DECREASED GLUCOSE; Start 04/09/17 at 00 :30 Methylprednisolone Sodium Succinate (Solu-Medrol) 40 mg Q12 IV Last administered on 04/11/17 08:03; Admin Dose 40 MG; Start 04/10/17 at 21:00 Hydralazine HCl (Apresoline) 10 mg Q8 PO Last administered on 04/11/17 05:54; Admin Dose 10 MG; Start 04/10/17 at 14:00 Furosemide (Lasix) 40 mg DAILY PO ; Start 04/12/17 at 09:00 Levofloxacin (Levaquin) 500 mg DAILY@06 PO ; Start 04/12/17 at 06:00 Ronald Grullon DO Apr 11, 2017 16:08
[2017-04-11] MEDS: ISOSORBIDE DINITRATE 5 MG TAB PO SCH (20:05)
[2017-04-12] VITALS (14 sets, daily range): BP systolic 138–182; BP diastolic 78–104; PULSE 54–77; RESP 19–21
[2017-04-12] MEDS: PROPOFOL 100 ML IV SCH
[2017-04-12] MEDS: ACCU-CHEK XX SCH (02:00)
[2017-04-12] MEDS ORDERED: LEVOFLOXACIN 500 MG TAB PO SCH (06:00)
[2017-04-12] MEDS: CLOPIDOGREL 75 MG TAB PO SCH (08:27)
[2017-04-12] MEDS: ISOSORBIDE DINITRATE 5 MG TAB PO SCH ×2 (08:29→12:53)
[2017-04-12] MEDS: FUROSEMIDE 40 MG TAB PO SCH (08:29)
[2017-04-12] MEDS: METHYLPREDNISOLONE 40 MG INJ IV SCH ×2 (08:29→20:52)
[2017-04-12] MEDS: INSULIN GLARGINE [LANtus] 3 ML PEN SC SCH ×2 (08:31→20:54)
[2017-04-12] MEDS: INSULIN ASPART [NOVOLOG] 3 ML PEN SC SCH ×3 (08:32→17:21)
[2017-04-12] MEDS: DEXTROSE 5%-0.45% NACL 1,000 ML IV SCH (08:49)
[2017-04-12 10:14] LABS: BASOPHILS % 0.1 % (0.0-2.0); HEMATOCRIT 42.4 % (42.0-52.0); HEMOGLOBIN 12.8 g/dl (14.0-18.0); LYMPHOCYTES # 0.9 10^3/ul (0.8-2.9); LYMPHOCYTES % 12.6 % (15.0-51.0); MEAN CORPUSCULAR HEMOGLOBIN 28.5 pg (29.0-33.0); MEAN CORPUSCULAR HGB CONC 30.2 g/dl (32.0-37.0); MEAN CORPUSCULAR VOLUME 94.4 fl (82.0-101.0); MONOCYTE # 0.4 10^3/ul (0.3-0.9); MONOCYTES % 5.8 % (0.0-11.0); NEUTROPHILS % 81.2 % (39.0-77.0); PLATELET COUNT 190 10^3/UL (140-415); RED BLOOD COUNT 4.49 10^6/ul (4.70-6.10); RED CELL DISTRIBUTION WIDTH 14.6 % (11.5-14.5); WHITE BLOOD COUNT 7.1 10^3/ul (4.8-10.8)
[2017-04-12 10:44] LABS: CALCIUM 8.2 mg/dl (8.4-10.2); CREATININE 2.86 mg/dl (0.61-1.24); POTASSIUM 4.9 mmol/L (3.5-5.1)
--- NOTE | 2017-04-12 11:36 | PN ---
Date/Time of Note Date/Time of Note DATE: 04/12/17 TIME: 11:33 Assessment/Plan VTE Prophylaxis VTE Prophylaxis Intervention: SCD's Lines/Catheters IV C[facility]ter Type (from [facility] Saline Lock Urinary Cath still in place: No Assessment/Plan Chief Complaint/Hosp Course Assessment/Plan: 51-year-old male presents with: 1. Hypercapnic and hypoxic respiratory failure, s/p intubation, and now extubated 2 days ago. Likely secondary to combination of COPD and CHF exacerbation. -Continue oxygen supplementation -Continue breathing treatments, steroid, antibiotic and diuretics -Follow-up pulmonary recommendation 2. CAD with history of CABG -Continue home medications including his Plavix -Follow-up cardiology consult 3. Ischemic cardiomyopathy with systolic dysfunction, with EF of 40% per recent 2D echo 2 weeks ago -Continue home cardiac medications -Follow-up cardiology consult recommendations -Awaiting physical therapy eval 4. Acute CHF exacerbation, systolic. Slowly improving. BNP on admission was 13,200 -Continue diuretic dosage per renal recommendations for now, and vent support -Monitor ins and outs. 5. History of diabetes: recent A1c 7.9 -Insulin sliding scale while in house 6. Obstructive sleep apnea: Currently intubated -Continue vent support. Follow-up pulmonary consult recommendation 7. Hypertension: BP improved now -Continue home meds with adjustment as needed 8. CKD: Stable, but creatinine still somewhat elevated, slightly improved since yesterday. Component of cardiorenal syndrome as well. -Avoid nephrotoxins -Follow-up nephrology consult recommendations Problems: Subjective 24 Hr Interval Summary Free Text/Dictation Patient denies chest pain. Out of intensive care unit now. Exam/Review of Systems Vital Signs Vitals Vital Signs Date Time Temp Pulse Resp B/P Pulse Ox O2 Delivery O2 Flow Rate FiO2 04/12/17 08:19 67 04/12/17 07:55 98.3 19 154/78 98 04/12/17 07:20 3.0 04/11/17 06:00 Nasal Cannula 04/11/17 03:38 31 Intake and Output 04/11/17 04/11/17 04/12/17 15:00 23:00 07:00 Intake Total 550 ml 300 ml 1100 ml Output Total 525 ml 600 ml 1200 ml Balance 25 ml -300 ml -100 ml Exam Constitutional: Lethargic, but responsive, answers questions Head: atraumatic, normocephalic Eyes: PERRL Respiratory: some diminished breath sounds Cardiovascular: S1, S2 heard Gastrointestinal: other (Morbidly obese. Less anasarca) Extremities: 1+ edema bilateral lower extremely Results Result Diagram: 04/12/1723 04/12/17 0930 Results 24 hrs Laboratory Tests Test 04/11/17 12:17 04/11/17 17:53 04/11/17 20:03 04/12/17 08:06 Bedside Glucose 157 152 173 149 Test 04/12/17 09:23 04/12/17 09:30 White Blood Count 7.1 # Red Blood Count 4.49 L Hemoglobin 12.8 L Hematocrit 42.4 Mean Corpuscular Volume 94.4 Mean Corpuscular Hemoglobin 28.5 L Mean Corpuscular Hemoglobin Concent 30.2 L Red Cell Distribution Width 14.6 H Platelet Count 190 Mean Platelet Volume 12.0 H Neutrophils % 81.2 H Lymphocytes % 12.6 L Monocytes % 5.8 Eosinophils % 0.0 Basophils % 0.1 Nucleated Red Blood Cells % 0.0 Neutrophils # (Manual) 6 Lymphocytes # 0.9 Monocytes # 0.4 Eosinophils # 0.0 Basophils # 0.0 Nucleated Red Blood Cells # 0.0 Sodium Level 142 Potassium Level 4.9 Chloride Level 100 Carbon Dioxide Level 31 Anion Gap 16 Blood Urea Nitrogen 54 H Creatinine 2.86 H Glucose Level 168 Calcium Level 8.2 L Medications Medications Current Medications Hydralazine HCl 10 mg 10 mg Q4H PRN IV HTN; Start 04/08/17 at 22:30 Propofol (Diprivan) 100 ml @ 4.05 mls/hr Q12H IV Last administered on 06:46; Admin Dose 24.3 MLS/HR; Start 04/09/17 at 00:00 Carvedilol (Coreg) 25 mg BID PO Last administered on 04/12/17 08:29; Admin Dose 25 MG; Start 04/09/17 at 09:00 Clopidogrel Bisulfate (plaVIX) 75 mg DAILY PO Last administered on 04/12/17 08 :27; Admin Dose 75 MG; Start 04/09/17 at 09:00 Insulin Glargine (Lantus) 20 unit DAILY@08 SC Last administered on 04/12/17 08 :31; Admin Dose 20 UNIT; Start 04/09/17 at 08:00 Diagnostic Test (Pha) (Accu-Chek) 1 ea 02 XX Last administered on 04/11/17 02: 19; Admin Dose 1 EA; Start 04/09/17 at 02:00 Insulin Glargine 10 unit 10 unit QHS SC Last administered on 04/11/17 20:12; Admin Dose 10 UNIT; Start 04/09/17 at 21:00 Dextrose/Sodium Chloride (D5-1/2ns) 1,000 ml @ 50 mls/hr Q20H IV Last administered on 04/12/17 08:49; Admin Dose 50 MLS/HR; Start 04/09/17 at 00:30 Miscellaneous Information 1 ea NOTE XX ; Start 04/09/17 at 00:30 Glucose (Glutose) 15 gm Q15M PRN PO DECREASED GLUCOSE; Start 04/09/17 at 00:30 Glucose (Glutose) 22.5 gm Q15M PRN PO DECREASED GLUCOSE; Start 04/09/17 at 00: 30 Dextrose (D50w Syringe) 25 ml Q15M PRN IV DECREASED GLUCOSE; Start 04/09/17 at 00:30 Dextrose (D50w Syringe) 50 ml Q15M PRN IV DECREASED GLUCOSE; Start 04/09/17 at 00:30 Glucagon (Glucagen) 1 mg Q15M PRN IM DECREASED GLUCOSE; Start 04/09/17 at 00:30 Glucose (Glutose) 15 gm Q15M PRN BUCCAL DECREASED GLUCOSE; Start 04/09/17 at 00 :30 Methylprednisolone Sodium Succinate (Solu-Medrol) 40 mg Q12 IV Last administered on 04/12/17 08:29; Admin Dose 40 MG; Start 04/10/17 at 21:00 Hydralazine HCl (Apresoline) 10 mg Q8 PO Last administered on 04/12/17 06:14; Admin Dose 10 MG; Start 04/10/17 at 14:00 Furosemide (Lasix) 40 mg DAILY PO Last administered on 04/12/17 08:29; Admin Dose 40 MG; Start 04/12/17 at 09:00 Levofloxacin (Levaquin) 500 mg DAILY@06 PO Last administered on 04/12/17 06:14 ; Admin Dose 500 MG; Start 04/12/17 at 06:00 Isosorbide Dinitrate (Isordil) 5 mg TID PO Last administered on 04/12/17t 08:29 ; Admin Dose 5 MG; Start 04/11/17 at 21:00 CHOCO MONTOYA Apr 12, 2017 11:36
--- NOTE | 2017-04-12 11:58 | CONS ---
Date/Time of Note Date/Time of Note DATE: 04/12/17 TIME: 11:57 Consult Date/Type/Reason Admit Date/Time Apr 08, 2017 at 20:17 Initial Consult Date 04/09/17 Type of Consultation: Pulmonary Ordering Provider: CHOCO MONTOYA Subjective Patient comfortable today. Objective Vital Signs Date Time Temp Pulse Resp B/P Pulse Ox O2 Delivery O2 Flow Rate FiO2 04/12/17 08:19 67 04/12/17 07:55 98.3 19 154/78 98 04/12/17 07:20 3.0 04/11/17 06:00 Nasal Cannula 04/11/17 03:38 31 Intake and Output 04/11/17 04/11/17 04/12/17 14:59 22:59 06:59 Intake Total 600 ml 300 ml 1100 ml Output Total 525 ml 600 ml 1200 ml Balance 75 ml -300 ml -100 ml Exam GENERAL: Well-nourished well-developed gentleman on nasal cannula O2 VITAL SIGNS: per chart NECK: Supple. No JVD or lymphadenopathy. CARDIAC EXAM: S1, S2. 2/6 systolic ejection murmur CHEST: Diminished air entry bilaterally ABDOMEN: Soft, nontender. No guarding or rebound. Obese EXTREMITIES: No cyanosis, clubbing edema +1 NEUROLOGIC: Generalized weakness. Results/Medications Result Diagram: 04/12/17 0923 04/12/17 0930 Results 24 hrs Laboratory Tests Test 04/11/17 12:17 04/11/17 17:53 04/11/17 20:03 04/12/17 08:06 Bedside Glucose 157 152 173 149 Test 04/12/17 09:23 04/12/17 09:30 White Blood Count 7.1 # Red Blood Count 4.49 L Hemoglobin 12.8 L Hematocrit 42.4 Mean Corpuscular Volume 94.4 Mean Corpuscular Hemoglobin 28.5 L Mean Corpuscular Hemoglobin Concent 30.2 L Red Cell Distribution Width 14.6 H Platelet Count 190 Mean Platelet Volume 12.0 H Neutrophils % 81.2 H Lymphocytes % 12.6 L Monocytes % 5.8 Eosinophils % 0.0 Basophils % 0.1 Nucleated Red Blood Cells % 0.0 Neutrophils # (Manual) 6 Lymphocytes # 0.9 Monocytes # 0.4 Eosinophils # 0.0 Basophils # 0.0 Nucleated Red Blood Cells # 0.0 Sodium Level 142 Potassium Level 4.9 Chloride Level 100 Carbon Dioxide Level 31 Anion Gap 16 Blood Urea Nitrogen 54 H Creatinine 2.86 H Glucose Level 168 Calcium Level 8.2 L Medications Current Medications Hydralazine HCl 10 mg 10 mg Q4H PRN IV HTN; Start 04/08/17 at 22:30 Propofol (Diprivan) 100 ml @ 4.05 mls/hr Q12H IV Last administered on 06:46; Admin Dose 24.3 MLS/HR; Start 04/09/17 at 00:00 Carvedilol (Coreg) 25 mg BID PO Last administered on 04/12/17 08:29; Admin Dose 25 MG; Start 04/09/17 at 09:00 Clopidogrel Bisulfate (plaVIX) 75 mg DAILY PO Last administered on 04/12/17 08 :27; Admin Dose 75 MG; Start 04/09/17 at 09:00 Insulin Glargine (Lantus) 20 unit DAILY@08 SC Last administered on 04/12/17 08 :31; Admin Dose 20 UNIT; Start 04/09/17 at 08:00 Diagnostic Test (Pha) (Accu-Chek) 1 ea 02 XX Last administered on 04/11/17 02: 19; Admin Dose 1 EA; Start 04/09/17 at 02:00 Insulin Glargine 10 unit 10 unit QHS SC Last administered on 04/11/17 20:12; Admin Dose 10 UNIT; Start 04/09/17 at 21:00 Dextrose/Sodium Chloride (D5-1/2ns) 1,000 ml @ 50 mls/hr Q20H IV Last administered on 04/12/17 08:49; Admin Dose 50 MLS/HR; Start 04/09/17 at 00:30 Miscellaneous Information 1 ea NOTE XX ; Start 04/09/17 at 00:30 Glucose (Glutose) 15 gm Q15M PRN PO DECREASED GLUCOSE; Start 04/09/17 at 00:30 Glucose (Glutose) 22.5 gm Q15M PRN PO DECREASED GLUCOSE; Start 04/09/17 at 00: 30 Dextrose (D50w Syringe) 25 ml Q15M PRN IV DECREASED GLUCOSE; Start 04/09/17 at 00:30 Dextrose (D50w Syringe) 50 ml Q15M PRN IV DECREASED GLUCOSE; Start 04/09/17 at 00:30 Glucagon (Glucagen) 1 mg Q15M PRN IM DECREASED GLUCOSE; Start 04/09/17 at 00:30 Glucose (Glutose) 15 gm Q15M PRN BUCCAL DECREASED GLUCOSE; Start 04/09/17 at 00 :30 Methylprednisolone Sodium Succinate (Solu-Medrol) 40 mg Q12 IV Last administered on 04/12/17 08:29; Admin Dose 40 MG; Start 04/10/17 at 21:00 Hydralazine HCl (Apresoline) 10 mg Q8 PO Last administered on 04/12/17 06:14; Admin Dose 10 MG; Start 04/10/17 at 14:00 Furosemide (Lasix) 40 mg DAILY PO Last administered on 04/12/17 08:29; Admin Dose 40 MG; Start 04/12/17 at 09:00 Levofloxacin (Levaquin) 500 mg DAILY@06 PO Last administered on 04/12/17 06:14 ; Admin Dose 500 MG; Start 04/12/17 at 06:00 Isosorbide Dinitrate (Isordil) 5 mg TID PO Last administered on 04/12/17 08:29 ; Admin Dose 5 MG; Start 04/11/17 at 21:00 Nicotine (Nicoderm 14 Mg/ 24hr) 1 patch DAILY TRANSDERM ; Start 04/12/17 at 12: 00 Assessment/Plan Chief Complaint/Hosp Course Assessment 1. Acute hypoxemic respiratory failure secondary to volume overload from cardiogenic pulmonary edema now extubated on nasal cannula 2. Ischemic cardiomyopathy with ejection fraction 40% 3. Chronic kidney disease 4. Underlying obstructive sleep apnea Plan 1. Incentive spirometry 2. Continue gentle diuresis 3. Aspiration precautions 4. Cardiac recommendations and consult 5. PT eval encourage out of bed Problems: AMI GRIMES MD, [facility] Apr 12, 2017 11:58
--- NOTE | 2017-04-12 12:26 | CONS ---
Date/Time of Note Date/Time of Note DATE: 04/12/17 TIME: 12:23 Assessment/Plan Assessment/Plan Additional Assessment/Plan 1. Acute resp failure intubated multifactorial due to COPD and CHF exacerbation - s/p Extubation on 04/10/17 2. acute kidney injury on CKD due to Cardiorenal syndrome 3. Acute CHF Exacerbation , acute on chronic ,systolic, EF 40% on ECHO 4. Hypertension 5. Hyperlipidemia 6. H/o CAD S/p CABG Plan: continue lasix to 40mg po daily , Cr today v2.86- monitor electrolytes and replace as needed, strict I/O- watch for overdiuresis last ECHO showed EF 40%, Renal US unremarkable in 02/2017 d/c gabriela Conklin/jaleel IVF will follow up Consultation Date/Type/Reason Admit Date/Time Apr 08, 2017 at 20:17 Initial Consult Date 04/09/17 Type of Consultation: NEPHROLOGY Referring Provider: CHOCO MONTOYA 24 HR Interval Summary Free Text/Dictation doing better, less SOB, no disterss, making good urine Exam/Review of Systems Vital Signs Vitals Vital Signs Date Time Temp Pulse Resp B/P Pulse Ox O2 Delivery O2 Flow Rate FiO2 04/12/17 12:09 98.2 56 19 138/80 98 04/12/17 07:20 3.0 04/11/17 06:00 Nasal Cannula 04/11/17 03:38 31 Intake and Output 04/11/17 04/11/17 04/12/17 15:00 23:00 07:00 Intake Total 550 ml 300 ml 1100 ml Output Total 525 ml 600 ml 1200 ml Balance 25 ml -300 ml -100 ml Exam Constitutional: alert, no acute distress Eyes: [place], EOMI, no JVD Respiratory: congested cough, crackles/rales, diminished breath sounds, wheezing Cardiovascular: nl pulses, regular rate and rhythm Gastrointestinal: non-tender, other (Morbidly obese ), soft Extremities: normal pulses Results Result Diagram: 04/12/17 0923 04/12/17 0930 Results 24 hrs Laboratory Tests Test 04/11/17 17:53 04/11/17 20:03 04/12/17 08:06 04/12/17 09:23 Bedside Glucose 152 173 149 White Blood Count 7.1 # Red Blood Count 4.49 L Hemoglobin 12.8 L Hematocrit 42.4 Mean Corpuscular Volume 94.4 Mean Corpuscular Hemoglobin 28.5 L Mean Corpuscular Hemoglobin Concent 30.2 L Red Cell Distribution Width 14.6 H Platelet Count 190 Mean Platelet Volume 12.0 H Neutrophils % 81.2 H Lymphocytes % 12.6 L Monocytes % 5.8 Eosinophils % 0.0 Basophils % 0.1 Nucleated Red Blood Cells % 0.0 Neutrophils # (Manual) 6 Lymphocytes # 0.9 Monocytes # 0.4 Eosinophils # 0.0 Basophils # 0.0 Nucleated Red Blood Cells # 0.0 Test 04/12/17 09:30 Sodium Level 142 Potassium Level 4.9 Chloride Level 100 Carbon Dioxide Level 31 Anion Gap 16 Blood Urea Nitrogen 54 H Creatinine 2.86 H Glucose Level 168 Calcium Level 8.2 L Medications Medications Current Medications Hydralazine HCl 10 mg 10 mg Q4H PRN IV HTN; Start 04/08/17 at 22:30 Propofol (Diprivan) 100 ml @ 4.05 mls/hr Q12H IV Last administered on 06:46; Admin Dose 24.3 MLS/HR; Start 04/09/17 at 00:00 Carvedilol (Coreg) 25 mg BID PO Last administered on 04/12/17 08:29; Admin Dose 25 MG; Start 04/09/17 at 09:00 Clopidogrel Bisulfate (plaVIX) 75 mg DAILY PO Last administered on 04/12/17 08 :27; Admin Dose 75 MG; Start 04/09/17 at 09:00 Insulin Glargine (Lantus) 20 unit DAILY@08 SC Last administered on 04/12/17 08 :31; Admin Dose 20 UNIT; Start 04/09/17 at 08:00 Diagnostic Test (Pha) (Accu-Chek) 1 ea 02 XX Last administered on 04/11/17 02: 19; Admin Dose 1 EA; Start 04/09/17 at 02:00 Insulin Glargine 10 unit 10 unit QHS SC Last administered on 04/11/17 20:12; Admin Dose 10 UNIT; Start 04/09/17 at 21:00 Dextrose/Sodium Chloride (D5-1/2ns) 1,000 ml @ 50 mls/hr Q20H IV Last administered on 04/12/17 08:49; Admin Dose 50 MLS/HR; Start 04/09/17 at 00:30 Miscellaneous Information 1 ea NOTE XX ; Start 04/09/17 at 00:30 Glucose (Glutose) 15 gm Q15M PRN PO DECREASED GLUCOSE; Start 04/09/17 at 00:30 Glucose (Glutose) 22.5 gm Q15M PRN PO DECREASED GLUCOSE; Start 04/09/17 at 00: 30 Dextrose (D50w Syringe) 25 ml Q15M PRN IV DECREASED GLUCOSE; Start 04/09/17 at 00:30 Dextrose (D50w Syringe) 50 ml Q15M PRN IV DECREASED GLUCOSE; Start 04/09/17 at 00:30 Glucagon (Glucagen) 1 mg Q15M PRN IM DECREASED GLUCOSE; Start 04/09/17 at 00:30 Glucose (Glutose) 15 gm Q15M PRN BUCCAL DECREASED GLUCOSE; Start 04/09/17 at 00 :30 Methylprednisolone Sodium Succinate (Solu-Medrol) 40 mg Q12 IV Last administered on 04/12/17 08:29; Admin Dose 40 MG; Start 04/10/17 at 21:00 Hydralazine HCl (Apresoline) 10 mg Q8 PO Last administered on 04/12/17 06:14; Admin Dose 10 MG; Start 04/10/17 at 14:00 Furosemide (Lasix) 40 mg DAILY PO Last administered on 04/12/17 08:29; Admin Dose 40 MG; Start 04/12/17 at 09:00 Levofloxacin (Levaquin) 500 mg DAILY@06 PO Last administered on 04/12/17 06:14 ; Admin Dose 500 MG; Start 04/12/17 at 06:00 Isosorbide Dinitrate (Isordil) 5 mg TID PO Last administered on 04/12/17 08:29 ; Admin Dose 5 MG; Start 04/11/17 at 21:00 Nicotine (Nicoderm 14 Mg/ 24hr) 1 patch DAILY TRANSDERM ; Start 04/12/17 at 12: 00 ARELI FRANKLIN MD Apr 12, 2017 12:26
[2017-04-12] MEDS: NICOTINE (14 MG/24 HR) PATCH TRANSDERM SCH (12:47)
--- NOTE | 2017-04-12 15:06 | RADRPT ---
PROCEDURE: XR Chest 1 view. CLINICAL INDICATION: Shortness of breath TECHNIQUE: AP views of the chest was obtained. COMPARISON: Yesterday FINDINGS: The heart is large. Calcified atherosclerosis is noted in the aorta. Mediasternotomy wires overlie the heart. Central pulmonary vascular congestion and interstitial prominence in both lungs is uncha nged. Scattered atelectasis is seen in both lungs. No consolidations are identified. No pneumoth orax is seen. The osseous structures are unchanged. IMPRESSION: Cardiomegaly with calcified atherosclerosis in the aorta. Stable central pulmonary vascular congestion and mild interstitial prominence in both lungs. Scattered atelectasis in both lungs. RPTAT: AA .Bernardo Jacques MD, Date Time Electronically viewed and signed by .Bernardo Jacques MD, on 04/12/2017 15:06 .P/
--- NOTE | 2017-04-12 16:25 | CONS ---
Date/Time of Note Date/Time of Note DATE: 04/12/17 TIME: 16:23 Assessment/Plan Assessment/Plan Additional Assessment/Plan Respiratory failure, status post extubation Acute decompensated systolic congestive heart failure Cardiomyopathy with ejection fraction 40% COPD exacerbation Acute on chronic kidney disease Active tobacco use Nonsustained ventricular tachycardia Obstructive sleep apnea Poor compliance -On review of telemetry, patient with episodes of nonsustained ventricular tachycardia. Patient with known cardiomyopathy and currently with decompensated congestive heart failure and renal dysfunction. Patient also with sleep apnea and has been noncompliant with CPAP. He has multiple reasons for his heart failure exacerbation as well as his arrhythmia including active tobacco use and poor medication compliance. Furthermore, patient also on Levaquin. I did discuss with primary team, would stop quinolone given could increase propensity for arrhythmias. Patient on full dose Coreg for beta blockade. I would increase dose of Isordil as blood pressure permits. Maintain potassium above 4.0 and magnesium above 2.0. Encourage compliance with CPAP. Diuretics as per our nephrology colleagues. Smoking cessation counseling Consultation Date/Type/Reason Admit Date/Time Apr 08, 2017 at 20:17 Initial Consult Date 04/09/17 Type of Consultation: cv Referring Provider: CHOCO MONTOYA 24 HR Interval Summary Free Text/Dictation Shortness of breath is improving, was an bleeding today with minimal shortness of breath. Denies chest pain, palpitations or dizziness Exam/Review of Systems Vital Signs Vitals Vital Signs Date Time Temp Pulse Resp B/P Pulse Ox O2 Delivery O2 Flow Rate FiO2 04/12/17 15:52 98.3 72 19 182/104 94 04/12/17 07:20 3.0 04/11/17 06:00 Nasal Cannula 04/11/17 03:38 31 Intake and Output 04/11/17 04/11/17 04/12/17 15:00 23:00 07:00 Intake Total 550 ml 300 ml 1100 ml Output Total 525 ml 600 ml 1200 ml Balance 25 ml -300 ml -100 ml Exam No apparent distress Constitutional: alert, obese, oriented Head: normocephalic Respiratory: other (Coarse breath sounds bilaterally, no wheezing) Cardiovascular: other (S1-S2 heard), regular rate and rhythm Gastrointestinal: bowel sounds, non-tender, soft Extremities: edema Results Result Diagram: 04/12/1723 04/12/17 0930 Results 24 hrs Laboratory Tests Test 04/11/17 17:53 04/11/17 20:03 04/12/17 08:06 04/12/17 09:23 Bedside Glucose 152 173 149 White Blood Count 7.1 # Red Blood Count 4.49 L Hemoglobin 12.8 L Hematocrit 42.4 Mean Corpuscular Volume 94.4 Mean Corpuscular Hemoglobin 28.5 L Mean Corpuscular Hemoglobin Concent 30.2 L Red Cell Distribution Width 14.6 H Platelet Count 190 Mean Platelet Volume 12.0 H Neutrophils % 81.2 H Lymphocytes % 12.6 L Monocytes % 5.8 Eosinophils % 0.0 Basophils % 0.1 Nucleated Red Blood Cells % 0.0 Neutrophils # (Manual) 6 Lymphocytes # 0.9 Monocytes # 0.4 Eosinophils # 0.0 Basophils # 0.0 Nucleated Red Blood Cells # 0.0 Test 04/12/17 09:30 04/12/17 12:33 Sodium Level 142 Potassium Level 4.9 Chloride Level 100 Carbon Dioxide Level 31 Anion Gap 16 Blood Urea Nitrogen 54 H Creatinine 2.86 H Glucose Level 168 Calcium Level 8.2 L Bedside Glucose 163 Medications Medications Current Medications Hydralazine HCl (Apresoline) 10 mg Q4H PRN IV HTN; Start 04/08/17 at 22:30 Carvedilol (Coreg) 25 mg BID PO Last administered on 04/12/17 08:29; Admin Dose 25 MG; Start 04/09/17 at 09:00 Clopidogrel Bisulfate (plaVIX) 75 mg DAILY PO Last administered on 04/12/17 08 :27; Admin Dose 75 MG; Start 04/09/17 at 09:00 Insulin Glargine (Lantus) 20 unit DAILY@08 SC Last administered on 04/12/17 08 :31; Admin Dose 20 UNIT; Start 04/09/17 at 08:00 Diagnostic Test (Pha) (Accu-Chek) 1 ea 02 XX Last administered on 04/11/17 02: 19; Admin Dose 1 EA; Start 04/09/17 at 02:00 Insulin Glargine (Lantus) 10 unit QHS SC Last administered on 04/11/17 20:12; Admin Dose 10 UNIT; Start 04/09/17 at 21:00 Miscellaneous Information 1 ea NOTE XX ; Start 8/15/17 at 00:30 Glucose (Glutose) 15 gm Q15M PRN PO DECREASED GLUCOSE; Start 04/09/17 at 00:30 Glucose (Glutose) 22.5 gm Q15M PRN PO DECREASED GLUCOSE; Start 04/09/17 at 00: 30 Dextrose (D50w Syringe) 25 ml Q15M PRN IV DECREASED GLUCOSE; Start 04/09/17 at 00:30 Dextrose (D50w Syringe) 50 ml Q15M PRN IV DECREASED GLUCOSE; Start 04/09/17 at 00:30 Glucagon (Glucagen) 1 mg Q15M PRN IM DECREASED GLUCOSE; Start 04/09/17 at 00:30 Glucose (Glutose) 15 gm Q15M PRN BUCCAL DECREASED GLUCOSE; Start 04/09/17 at 00 :30 Methylprednisolone Sodium Succinate (Solu-Medrol) 40 mg Q12 IV Last administered on 04/12/17 08:29; Admin Dose 40 MG; Start 04/10/17 at 21:00 Hydralazine HCl (Apresoline) 10 mg Q8 PO Last administered on 04/12/17 15:24; Admin Dose 10 MG; Start 04/10/17 at 14:00 Furosemide (Lasix) 40 mg DAILY PO Last administered on 04/12/17 08:29; Admin Dose 40 MG; Start 04/12/17 at 09:00 Levofloxacin (Levaquin) 500 mg DAILY@06 PO Last administered on 04/12/17 06:14 ; Admin Dose 500 MG; Start 04/12/17 at 06:00 Isosorbide Dinitrate (Isordil) 5 mg TID PO Last administered on 04/12/17 12:53 ; Admin Dose 5 MG; Start 04/11/17 at 21:00 Nicotine (Nicoderm 14 Mg/ 24hr) 1 patch DAILY TRANSDERM Last administered on 12:47; Admin Dose 1 PATCH; Start 04/12/17 at 12:00 Ronald Grullon DO Apr 12, 2017 16:25
[2017-04-12] MEDS: ISOSORBIDE DINITRATE 10 MG TAB PO SCH (20:51)
[2017-04-13] VITALS (16 sets, daily range): BP systolic 156–196; BP diastolic 76–105; PULSE 57–115; RESP 16–20
[2017-04-13] MEDS: hydrALAzine 20 MG INJ IV PRN (00:39)
[2017-04-13] MEDS: ACCU-CHEK XX SCH (02:00)
--- NOTE | 2017-04-13 07:42 | PN ---
Date/Time of Note Date/Time of Note DATE: 04/13/17 TIME: 07:39 Assessment/Plan VTE Prophylaxis VTE Prophylaxis Intervention: SCD's Lines/Catheters [facility] Saline Lock Urinary Cath still in place: No Assessment/Plan Assessment/Plan Respiratory failure, status post extubation Acute decompensated systolic congestive heart failure Cardiomyopathy with ejection fraction 40% COPD exacerbation Acute on chronic kidney disease Active tobacco use Nonsustained ventricular tachycardia Obstructive sleep apnea Poor compliance -On review of telemetry, patient with episodes of nonsustained ventricular tachycardia. Patient with known cardiomyopathy and currently with decompensated congestive heart failure and renal dysfunction. Patient also with sleep apnea and has been noncompliant with CPAP. He has multiple reasons for his heart failure exacerbation as well as his arrhythmia including active tobacco use and poor medication compliance. Furthermore, patient also on Levaquin. Patient on full dose Coreg for beta blockade. I would increase dose of Isordil as blood pressure permits. Maintain potassium above 4.0 and magnesium above 2.0. Encourage compliance with CPAP. Diuretics as per our nephrology colleagues. Smoking cessation counseling. No prolonged NSVT - continue med therapy Subjective 24 Hr Interval Summary Free Text/Dictation The patient with no change brief nsvt Exam/Review of Systems Vital Signs Vitals Vital Signs Date Time Temp Pulse Resp B/P Pulse Ox O2 Delivery O2 Flow Rate FiO2 04/13/17 05:51 3.0 04/13/17 04:11 115 04/13/17 03:57 97.6 19 166/81 97 04/13/17 03:42 40 04/11/17 06:00 Nasal Cannula Intake and Output 04/12/17 04/12/17 04/13/17 15:00 23:00 07:00 Intake Total 600 ml Output Total 2400 ml 800 ml Balance -1800 ml -800 ml Results Result Diagram: 04/12/17 0923 04/12/17 0930 Results 24 hrs Laboratory Tests Test 04/12/17 08:06 04/12/17 09:23 04/12/17 09:30 04/12/17 12:33 Bedside Glucose 149 163 White Blood Count 7.1 # Red Blood Count 4.49 L Hemoglobin 12.8 L Hematocrit 42.4 Mean Corpuscular Volume 94.4 Mean Corpuscular Hemoglobin 28.5 L Mean Corpuscular Hemoglobin Concent 30.2 L Red Cell Distribution Width 14.6 H Platelet Count 190 Mean Platelet Volume 12.0 H Neutrophils % 81.2 H Lymphocytes % 12.6 L Monocytes % 5.8 Eosinophils % 0.0 Basophils % 0.1 Nucleated Red Blood Cells % 0.0 Neutrophils # (Manual) 6 Lymphocytes # 0.9 Monocytes # 0.4 Eosinophils # 0.0 Basophils # 0.0 Nucleated Red Blood Cells # 0.0 Sodium Level 142 Potassium Level 4.9 Chloride Level 100 Carbon Dioxide Level 31 Anion Gap 16 Blood Urea Nitrogen 54 H Creatinine 2.86 H Glucose Level 168 Calcium Level 8.2 L Test 04/12/17 17:15 04/12/17 20:50 Bedside Glucose 165 162 Medications Medications Current Medications Hydralazine HCl (Apresoline) 10 mg Q4H PRN IV HTN Last administered on 00:39; Admin Dose 10 MG; Start 04/08/17 at 22:30 Carvedilol (Coreg) 25 mg BID PO Last administered on 04/12/17 20:52; Admin Dose 25 MG; Start 04/09/17 at 09:00 Clopidogrel Bisulfate (plaVIX) 75 mg DAILY PO Last administered on 04/12/17 08 :27; Admin Dose 75 MG; Start 04/09/17 at 09:00 Insulin Glargine (Lantus) 20 unit DAILY@08 SC Last administered on 04/12/17 08 :31; Admin Dose 20 UNIT; Start 04/09/17 at 08:00 Diagnostic Test (Pha) (Accu-Chek) 1 ea 02 XX Last administered on 04/11/17 02: 19; Admin Dose 1 EA; Start 04/09/17 at 02:00 Insulin Glargine (Lantus) 10 unit QHS SC Last administered on 04/12/17 20:54; Admin Dose 10 UNIT; Start 04/09/17 at 21:00 Miscellaneous Information 1 ea NOTE XX ; Start 04/09/17 at 00:30 Glucose (Glutose) 15 gm Q15M PRN PO DECREASED GLUCOSE; Start 04/09/17 at 00:30 Glucose (Glutose) 22.5 gm Q15M PRN PO DECREASED GLUCOSE; Start 04/09/17 at 00: 30 Dextrose (D50w Syringe) 25 ml Q15M PRN IV DECREASED GLUCOSE; Start 8/15/17 at 00:30 Dextrose (D50w Syringe) 50 ml Q15M PRN IV DECREASED GLUCOSE; Start 04/09/17 at 00:30 Glucagon (Glucagen) 1 mg Q15M PRN IM DECREASED GLUCOSE; Start 04/09/17 at 00:30 Glucose (Glutose) 15 gm Q15M PRN BUCCAL DECREASED GLUCOSE; Start 04/09/17 at 00 :30 Methylprednisolone Sodium Succinate (Solu-Medrol) 40 mg Q12 IV Last administered on 04/12/17 20:52; Admin Dose 40 MG; Start 04/10/17 at 21:00 Hydralazine HCl (Apresoline) 10 mg Q8 PO Last administered on 04/13/17 05:39; Admin Dose 10 MG; Start 04/10/17 at 14:00 Furosemide (Lasix) 40 mg DAILY PO Last administered on 04/12/17 08:29; Admin Dose 40 MG; Start 04/12/17 at 09:00 Nicotine (Nicoderm 14 Mg/ 24hr) 1 patch DAILY TRANSDERM Last administered on 12:47; Admin Dose 1 PATCH; Start 04/12/17 at 12:00 Isosorbide Dinitrate (Isordil) 10 mg TID PO Last administered on 04/12/17 20: 51; Admin Dose 10 MG; Start 04/12/17 at 21:00 CARLOS BHATIA MD Apr 13, 2017 07:42
[2017-04-13] MEDS: INSULIN ASPART [NOVOLOG] 3 ML PEN SC SCH ×3 (08:40→17:37)
[2017-04-13] MEDS: INSULIN GLARGINE [LANtus] 3 ML PEN SC SCH ×2 (08:41→21:52)
[2017-04-13] MEDS: ISOSORBIDE DINITRATE 10 MG TAB PO SCH ×3 (08:42→20:15)
[2017-04-13] MEDS: CLOPIDOGREL 75 MG TAB PO SCH (08:42)
[2017-04-13] MEDS: METHYLPREDNISOLONE 40 MG INJ IV SCH (08:43)
[2017-04-13] MEDS: NICOTINE (14 MG/24 HR) PATCH TRANSDERM SCH (08:43)
[2017-04-13] MEDS: FUROSEMIDE 40 MG TAB PO SCH (08:43)
--- NOTE | 2017-04-13 11:06 | PN ---
Date/Time of Note Date/Time of Note DATE: 04/13/17 TIME: 11:02 Assessment/Plan VTE Prophylaxis VTE Prophylaxis Intervention: SCD's Lines/Catheters IV C[facility]ter Type (from [facility]): Saline Lock Urinary Cath still in place: No Assessment/Plan Chief Complaint/Hosp Course Assessment/Plan: 51-year-old male presents with: 1. Hypercapnic and hypoxic respiratory failure, s/p intubation, and now extubated 3 days ago. Likely secondary to combination of COPD and CHF exacerbation. Slowly improving -Continue oxygen supplementation -Continue breathing treatments, steroid, antibiotic and diuretics -Follow-up pulmonary recommendations -Continue CPAP at night, will need to make sure this is set up at home for use 2. CAD with history of CABG -Continue home medications including his Plavix -Follow-up cardiology consult 3. Ischemic cardiomyopathy with systolic dysfunction, with EF of 40% per recent 2D echo 2 weeks ago -Continue home cardiac medications -Follow-up cardiology consult recommendations -Continue physical therapy 4. Acute CHF exacerbation, systolic - BNP on admission was 13,200, again slowly improving -Continue diuretic dosage per renal recommendations for now, and vent support -Monitor ins and outs. 5. History of diabetes: recent A1c 7.9 -Insulin sliding scale while in house 6. Obstructive sleep apnea: Status post extubation, improved -Continue CPAP nightly, follow-up pulmonary consult recommendation 7. Hypertension: BP improved now -Continue home meds with adjustment as needed 8. CKD: Stable, but creatinine still elevated , component of cardiorenal syndrome as well. Patient has adequate urine up -Avoid nephrotoxins -Follow-up nephrology consult recommendations, including Lasix 40 mg p.o. daily Problems: Subjective 24 Hr Interval Summary Free Text/Dictation Patient had small run of 5 beats of V. tach, nonsustained, overnight. Able to tolerate CPAP and BiPAP last night, denies any shortness of breath or chest pain presently. Exam/Review of Systems Vital Signs Vitals Vital Signs Date Time Temp Pulse Resp B/P Pulse Ox O2 Delivery O2 Flow Rate FiO2 04/13/17 08:04 67 04/13/17 07:44 98.3 19 182/99 98 04/13/17 05:51 3.0 04/13/17 03:42 40 04/11/17 06:00 Nasal Cannula Intake and Output 04/12/17 04/12/17 04/13/17 15:00 23:00 07:00 Intake Total 600 ml Output Total 2400 ml 800 ml Balance -1800 ml -800 ml Exam Constitutional: More alert today, sitting on side of bed Head: atraumatic, normocephalic Eyes: PERRL Respiratory: Less diminished breath sounds Cardiovascular: S1, S2 heard Gastrointestinal: other (Morbidly obese. Less anasarca) Extremities: 1+ edema bilateral lower extremely Results Result Diagram: 04/12/17 0923 04/12/17 0930 Results 24 hrs Laboratory Tests Test 04/12/17 12:33 04/12/17 17:15 04/12/17 20:50 04/13/17 08:11 Bedside Glucose 163 165 162 171 Medications Medications Current Medications Hydralazine HCl (Apresoline) 10 mg Q4H PRN IV HTN Last administered on 00:39; Admin Dose 10 MG; Start 04/08/17 at 22:30 Carvedilol (Coreg) 25 mg BID PO Last administered on 04/13/17 08:43; Admin Dose 25 MG; Start 04/09/17 at 09:00 Clopidogrel Bisulfate (plaVIX) 75 mg DAILY PO Last administered on 04/13/17 08 :42; Admin Dose 75 MG; Start 04/09/17 at 09:00 Insulin Glargine (Lantus) 20 unit DAILY@08 SC Last administered on 04/13/17 08 :41; Admin Dose 20 UNIT; Start 04/09/17 at 08:00 Diagnostic Test (Pha) (Accu-Chek) 1 ea 02 XX Last administered on 04/11/17 02: 19; Admin Dose 1 EA; Start 04/09/17 at 02:00 Insulin Glargine (Lantus) 10 unit QHS SC Last administered on 04/12/17 20:54; Admin Dose 10 UNIT; Start 04/09/17 at 21:00 Miscellaneous Information 1 ea NOTE XX ; Start 04/09/17 at 00:30 Glucose (Glutose) 15 gm Q15M PRN PO DECREASED GLUCOSE; Start 04/09/17 at 00:30 Glucose (Glutose) 22.5 gm Q15M PRN PO DECREASED GLUCOSE; Start 04/09/17 at 00: 30 Dextrose (D50w Syringe) 25 ml Q15M PRN IV DECREASED GLUCOSE; Start 04/09/17 at 00:30 Dextrose (D50w Syringe) 50 ml Q15M PRN IV DECREASED GLUCOSE; Start 04/09/17 at 00:30 Glucagon (Glucagen) 1 mg Q15M PRN IM DECREASED GLUCOSE; Start 04/09/17 at 00:30 Glucose (Glutose) 15 gm Q15M PRN BUCCAL DECREASED GLUCOSE; Start 04/09/17 at 00 :30 Methylprednisolone Sodium Succinate (Solu-Medrol) 40 mg Q12 IV Last administered on 04/13/17 08:43; Admin Dose 40 MG; Start 04/10/17 at 21:00 Hydralazine HCl (Apresoline) 10 mg Q8 PO Last administered on 04/13/17 05:39; Admin Dose 10 MG; Start 04/10/17 at 14:00 Furosemide (Lasix) 40 mg DAILY PO Last administered on 04/13/17 08:43; Admin Dose 40 MG; Start 04/12/17 at 09:00 Nicotine (Nicoderm 14 Mg/ 24hr) 1 patch DAILY TRANSDERM Last administered on 08:43; Admin Dose 1 PATCH; Start 04/12/17 at 12:00 Isosorbide Dinitrate (Isordil) 10 mg TID PO Last administered on 04/13/17 08: 42; Admin Dose 10 MG; Start 04/12/17 at 21:00 CHOCO MONTOYA Apr 13, 2017 11:06
--- NOTE | 2017-04-13 12:07 | CONS ---
Date/Time of Note Date/Time of Note DATE: 04/13/17 TIME: 12:05 Assessment/Plan Assessment/Plan Additional Assessment/Plan Assessment recommendations; 1. Patient admitted with respiratory failure due to pulmonary edema status post extubation with significant improvement in overall clinical status. 2. Renal insufficiency. 3. Prior CABG. 4. Underlying cardiomyopathy. Discontinue Solu-Medrol. Continue other medications. Consultation Date/Type/Reason Admit Date/Time Apr 08, 2017 at 20:17 Initial Consult Date 04/09/17 Type of Consultation: Pulmonary Referring Provider: CHOCO MONTOYA 24 HR Interval Summary Free Text/Dictation Patient condition is stable. Denies any chest pain, shortness of breath is improving. Denies any wheezing, sputum production. General exam; middle-aged male, obese, currently in no distress. Awake and alert. Exam/Review of Systems Vital Signs Vitals Vital Signs Date Time Temp Pulse Resp B/P Pulse Ox O2 Delivery O2 Flow Rate FiO2 04/13/17 11:41 98.3 60 19 192/96 98 04/13/17 05:51 3.0 04/13/17 03:42 40 04/11/17 06:00 Nasal Cannula Intake and Output 04/12/17 04/12/17 04/13/17 15:00 23:00 07:00 Intake Total 600 ml Output Total 2400 ml 800 ml Balance -1800 ml -800 ml Exam HEENT exam; supple neck, positive JVD. No lymphadenopathy. Midline trachea. No thyromegaly. Pharynx is clear. Patient has fair dentition. Chest exam; diminished but clear breath sound. S1-S2 audible, no murmurs. Regular rhythm. There is a well-healed sternal scar. Abdomen exam; protuberant, nontender. No organomegaly. Bowel sounds audible. Extremity exam; no peripheral edema. [employer] exam; no focal deficit. Results Result Diagram: 04/12/17 0923 04/12/17 0930 Results 24 hrs Laboratory Tests Test 04/12/17 12:33 04/12/17 17:15 04/12/17 20:50 04/13/17 08:11 Bedside Glucose 163 165 162 171 Medications Medications Current Medications Hydralazine HCl (Apresoline) 10 mg Q4H PRN IV HTN Last administered on t 00:39; Admin Dose 10 MG; Start 04/08/17 at 22:30 Carvedilol (Coreg) 25 mg BID PO Last administered on 04/13/17 08:43; Admin Dose 25 MG; Start 04/09/17 at 09:00 Clopidogrel Bisulfate (plaVIX) 75 mg DAILY PO Last administered on 04/13/17 08 :42; Admin Dose 75 MG; Start 04/09/17 at 09:00 Insulin Glargine (Lantus) 20 unit DAILY@08 SC Last administered on 04/13/17 08 :41; Admin Dose 20 UNIT; Start 04/09/17 at 08:00 Diagnostic Test (Pha) (Accu-Chek) 1 ea 02 XX Last administered on 04/11/17 02: 19; Admin Dose 1 EA; Start 04/09/17 at 02:00 Insulin Glargine (Lantus) 10 unit QHS SC Last administered on 04/12/17 20:54; Admin Dose 10 UNIT; Start 04/09/17 at 21:00 Miscellaneous Information 1 ea NOTE XX ; Start 04/09/17 at 00:30 Glucose (Glutose) 15 gm Q15M PRN PO DECREASED GLUCOSE; Start 04/09/17 at 00:30 Glucose (Glutose) 22.5 gm Q15M PRN PO DECREASED GLUCOSE; Start 04/09/17 at 00: 30 Dextrose (D50w Syringe) 25 ml Q15M PRN IV DECREASED GLUCOSE; Start 04/09/17 at 00:30 Dextrose (D50w Syringe) 50 ml Q15M PRN IV DECREASED GLUCOSE; Start 04/09/17 at 00:30 Glucagon (Glucagen) 1 mg Q15M PRN IM DECREASED GLUCOSE; Start 04/09/17 at 00:30 Glucose (Glutose) 15 gm Q15M PRN BUCCAL DECREASED GLUCOSE; Start 04/09/17 at 00 :30 Methylprednisolone Sodium Succinate (Solu-Medrol) 40 mg Q12 IV Last administered on 04/13/17 08:43; Admin Dose 40 MG; Start 04/10/17 at 21:00 Hydralazine HCl (Apresoline) 10 mg Q8 PO Last administered on 04/13/17 05:39; Admin Dose 10 MG; Start 04/10/17 at 14:00 Furosemide (Lasix) 40 mg DAILY PO Last administered on 04/13/17 08:43; Admin Dose 40 MG; Start 04/12/17 at 09:00 Nicotine (Nicoderm 14 Mg/ 24hr) 1 patch DAILY TRANSDERM Last administered on 08:43; Admin Dose 1 PATCH; Start 04/12/17 at 12:00 Isosorbide Dinitrate (Isordil) 10 mg TID PO Last administered on 04/13/17 08: 42; Admin Dose 10 MG; Start 04/12/17 at 21:00 Isosorbide Dinitrate (Isordil) 20 mg TID PO ; Start 04/13/17 at 13:00 MARIE JEFFREY Apr 13, 2017 12:07
--- NOTE | 2017-04-13 12:08 | CONS ---
Date/Time of Note Date/Time of Note DATE: 04/13/17 TIME: 12:03 Assessment/Plan Assessment/Plan Additional Assessment/Plan 1. Acute resp failure intubated multifactorial due to COPD and CHF exacerbation 2. acute kidney injury on CKD due to Cardiorenal syndrome 3. Acute CHF Exacerbation , acute on chronic ,systolic, EF 40% on ECHO 4. Hypertension 5. Hyperlipidemia 6. H/o CAD S/p CABG Plan: Thank you Dr. Montoya for this consultation S/p lasix 40mg IV in AM, lasix 20mg iV at 6 pm Strict I/o, Muller care last ECHO showed EF 40%, renal US unremarkable in 02/2017 will continue to follow up, AML ,CXR and ABG has been ordered will follow up DW DR Heber Allan Consultation Date/Type/Reason Admit Date/Time Apr 08, 2017 at 20:17 Initial Consult Date 04/09/17 Type of Consultation: cv Referring Provider: CHOCO MONTOYA 24 HR Interval Summary Free Text/Dictation Cr down to 2.86 BP stable sp extubated, stable on telemetry floor Non COmpliant Constitutional: improved Exam/Review of Systems Vital Signs Vitals Vital Signs Date Time Temp Pulse Resp B/P Pulse Ox O2 Delivery O2 Flow Rate FiO2 04/13/17 11:41 98.3 60 19 192/96 98 04/13/17 05:51 3.0 04/13/17 03:42 40 04/11/17 06:00 Nasal Cannula Intake and Output 04/12/17 04/12/17 04/13/17 15:00 23:00 07:00 Intake Total 600 ml Output Total 2400 ml 800 ml Balance -1800 ml -800 ml Exam Constitutional: alert, obese, oriented Respiratory: clear to auscultation, diminished breath sounds Cardiovascular: nl pulses, regular rate and rhythm Gastrointestinal: non-tender, soft Musculoskeletal: nl extremities to inspection Extremities: normal pulses Neurological: nl mental status, nl speech, other Results Result Diagram: 04/12/17 0923 04/12/17 0930 Results 24 hrs Laboratory Tests Test 04/12/17 12:33 04/12/17 17:15 04/12/17 20:50 04/13/17 08:11 Bedside Glucose 163 165 162 171 Medications Medications Current Medications Hydralazine HCl (Apresoline) 10 mg Q4H PRN IV HTN Last administered on 00:39; Admin Dose 10 MG; Start 04/08/17 at 22:30 Carvedilol (Coreg) 25 mg BID PO Last administered on 04/13/17 08:43; Admin Dose 25 MG; Start 04/09/17 at 09:00 Clopidogrel Bisulfate (plaVIX) 75 mg DAILY PO Last administered on 04/13/17 08 :42; Admin Dose 75 MG; Start 04/09/17 at 09:00 Insulin Glargine (Lantus) 20 unit DAILY@08 SC Last administered on 04/13/17 08 :41; Admin Dose 20 UNIT; Start 04/09/17 at 08:00 Diagnostic Test (Pha) (Accu-Chek) 1 ea 02 XX Last administered on 04/11/17 02: 19; Admin Dose 1 EA; Start 04/09/17 at 02:00 Insulin Glargine (Lantus) 10 unit QHS SC Last administered on 04/12/17 20:54; Admin Dose 10 UNIT; Start 04/09/17 at 21:00 Miscellaneous Information 1 ea NOTE XX ; Start 04/09/17 at 00:30 Glucose (Glutose) 15 gm Q15M PRN PO DECREASED GLUCOSE; Start 04/09/17 at 00:30 Glucose (Glutose) 22.5 gm Q15M PRN PO DECREASED GLUCOSE; Start 04/09/17 at 00: 30 Dextrose (D50w Syringe) 25 ml Q15M PRN IV DECREASED GLUCOSE; Start 04/09/17 at 00:30 Dextrose (D50w Syringe) 50 ml Q15M PRN IV DECREASED GLUCOSE; Start 04/09/17 at 00:30 Glucagon (Glucagen) 1 mg Q15M PRN IM DECREASED GLUCOSE; Start 04/09/17 at 00:30 Glucose (Glutose) 15 gm Q15M PRN BUCCAL DECREASED GLUCOSE; Start 04/09/17 at 00 :30 Methylprednisolone Sodium Succinate (Solu-Medrol) 40 mg Q12 IV Last administered on 04/13/17 08:43; Admin Dose 40 MG; Start 04/10/17 at 21:00 Hydralazine HCl (Apresoline) 10 mg Q8 PO Last administered on 04/13/17 05:39; Admin Dose 10 MG; Start 04/10/17 at 14:00 Furosemide (Lasix) 40 mg DAILY PO Last administered on 04/13/17 08:43; Admin Dose 40 MG; Start 04/12/17 at 09:00 Nicotine (Nicoderm 14 Mg/ 24hr) 1 patch DAILY TRANSDERM Last administered on 08:43; Admin Dose 1 PATCH; Start 04/12/17 at 12:00 Isosorbide Dinitrate (Isordil) 10 mg TID PO Last administered on 04/13/17 08: 42; Admin Dose 10 MG; Start 04/12/17 at 21:00 Isosorbide Dinitrate (Isordil) 20 mg TID PO ; Start 04/13/17 at 13:00 ANT ANGELO Apr 13, 2017 12:07
[2017-04-13 14:16] LABS: ABNORMAL IP MESSAGE 1; BASOPHILS % 0.1 % (0.0-2.0); HEMATOCRIT 42.7 % (42.0-52.0); HEMOGLOBIN 13.4 g/dl (14.0-18.0); LYMPHOCYTES # 0.4 10^3/ul (0.8-2.9); LYMPHOCYTES % 4.5 % (15.0-51.0); MEAN CORPUSCULAR HEMOGLOBIN 29.1 pg (29.0-33.0); MEAN CORPUSCULAR HGB CONC 31.4 g/dl (32.0-37.0); MEAN CORPUSCULAR VOLUME 92.8 fl (82.0-101.0); MEAN PLATELET VOLUME 12.1 fl (7.4-10.4); MONOCYTE # 0.1 10^3/ul (0.3-0.9); MONOCYTES % 1.7 % (0.0-11.0); NEUTROPHILS % 93.2 % (39.0-77.0); PLATELET COUNT 187 10^3/UL (140-415); POSITIVE DIFF @See below; RED CELL DISTRIBUTION WIDTH 13.9 % (11.5-14.5); WHITE BLOOD COUNT 8.4 10^3/ul (4.8-10.8)
[2017-04-13 14:37] LABS: CALCIUM 8.3 mg/dl (8.4-10.2); CREATININE 2.52 mg/dl (0.61-1.24); POTASSIUM 4.8 mmol/L (3.5-5.1)
[2017-04-14] VITALS (14 sets, daily range): BP systolic 124–171; BP diastolic 67–99; PULSE 49–84; RESP 16–20
[2017-04-14] MEDS: ACCU-CHEK XX SCH (02:00)
[2017-04-14] MEDS: FUROSEMIDE 40 MG TAB PO SCH (08:07)
[2017-04-14] MEDS: ISOSORBIDE DINITRATE 10 MG TAB PO SCH ×2 (08:07→12:24)
[2017-04-14] MEDS: CLOPIDOGREL 75 MG TAB PO SCH (08:08)
[2017-04-14] MEDS: NICOTINE (14 MG/24 HR) PATCH TRANSDERM SCH (08:08)
[2017-04-14] MEDS: INSULIN ASPART [NOVOLOG] 3 ML PEN SC SCH ×2 (08:09→12:24)
[2017-04-14] MEDS: INSULIN GLARGINE [LANtus] 3 ML PEN SC SCH (08:11)
--- NOTE | 2017-04-14 10:02 | CONS ---
Date/Time of Note Date/Time of Note DATE: 04/14/17 TIME: 10:01 Consultation Date/Type/Reason Admit Date/Time Apr 08, 2017 at 20:17 Initial Consult Date 04/09/17 Type of Consultation: Pulmonary Referring Provider: CHOCO MONTOYA 24 HR Interval Summary Free Text/Dictation Assessment/Plan Respiratory failure, status post extubation Acute decompensated systolic congestive heart failure Cardiomyopathy with ejection fraction 40% COPD exacerbation Acute on chronic kidney disease Active tobacco use Nonsustained ventricular tachycardia Obstructive sleep apnea Poor compliance Diuresis as tolerated nephrology input appreciated Constitutional: no complaints Exam/Review of Systems Vital Signs Vitals Vital Signs Date Time Temp Pulse Resp B/P Pulse Ox O2 Delivery O2 Flow Rate FiO2 04/14/17 08:30 67 04/14/17 08:08 98.5 18 155/94 92 04/14/17 06:04 Nasal Cannula 3.0 04/14/17 03:52 40 Intake and Output 04/13/17 04/13/17 04/14/17 14:59 22:59 06:59 Intake Total 800 ml 400 ml Output Total 1800 ml 450 ml Balance -1000 ml -50 ml Exam Constitutional: alert, oriented Psych: no complaints Respiratory: diminished breath sounds Cardiovascular: edema (2+), regular rate and rhythm Gastrointestinal: non-tender, soft Results Result Diagram: 04/13/17 1351 04/13/17 1351 Results 24 hrs Laboratory Tests Test 04/13/17 12:45 04/13/17 13:51 04/13/17 17:29 04/13/17 21:48 Bedside Glucose 203 232 H 194 White Blood Count 8.4 Red Blood Count 4.60 L Hemoglobin 13.4 L Hematocrit 42.7 Mean Corpuscular Volume 92.8 Mean Corpuscular Hemoglobin 29.1 Mean Corpuscular Hemoglobin Concent 31.4 L Red Cell Distribution Width 13.9 Platelet Count 187 Mean Platelet Volume 12.1 H Neutrophils % 93.2 H Lymphocytes % 4.5 L Monocytes % 1.7 Eosinophils % 0.0 Basophils % 0.1 Nucleated Red Blood Cells % 0.0 Neutrophils # (Manual) 8 H Lymphocytes # 0.4 L Monocytes # 0.1 L Eosinophils # 0.0 Basophils # 0.0 Nucleated Red Blood Cells # 0.0 Sodium Level 139 Potassium Level 4.8 Chloride Level 101 Carbon Dioxide Level 29 Anion Gap 14 Blood Urea Nitrogen 59 H Creatinine 2.52 H Glucose Level 262 H Calcium Level 8.3 L Test 04/14/17 03:42 04/14/17 07:55 Bedside Glucose 137 101 Medications Medications Current Medications Hydralazine HCl (Apresoline) 10 mg Q4H PRN IV HTN Last administered on 00:39; Admin Dose 10 MG; Start 04/08/17 at 22:30 Carvedilol (Coreg) 25 mg BID PO Last administered on 04/14/17 08:08; Admin Dose 25 MG; Start 04/09/17 at 09:00 Clopidogrel Bisulfate (plaVIX) 75 mg DAILY PO Last administered on 04/14/17 08 :08; Admin Dose 75 MG; Start 04/09/17 at 09:00 Insulin Glargine (Lantus) 20 unit DAILY@08 SC Last administered on 04/14/17 08 :11; Admin Dose 20 UNIT; Start 04/09/17 at 08:00 Diagnostic Test (Pha) (Accu-Chek) 1 ea 02 XX Last administered on 04/11/17 02: 19; Admin Dose 1 EA; Start 04/09/17 at 02:00 Insulin Glargine (Lantus) 10 unit QHS SC Last administered on 04/13/17 21:52; Admin Dose 10 UNIT; Start 04/09/17 at 21:00 Miscellaneous Information 1 ea NOTE XX ; Start 04/09/17 at 00:30 Glucose (Glutose) 15 gm Q15M PRN PO DECREASED GLUCOSE; Start 04/09/17 at 00:30 Glucose (Glutose) 22.5 gm Q15M PRN PO DECREASED GLUCOSE; Start 04/09/17 at 00: 30 Dextrose (D50w Syringe) 25 ml Q15M PRN IV DECREASED GLUCOSE; Start 04/09/17 at 00:30 Dextrose (D50w Syringe) 50 ml Q15M PRN IV DECREASED GLUCOSE; Start 04/09/17 at 00:30 Glucagon (Glucagen) 1 mg Q15M PRN IM DECREASED GLUCOSE; Start 04/09/17 at 00:30 Glucose (Glutose) 15 gm Q15M PRN BUCCAL DECREASED GLUCOSE; Start 04/09/17 at 00 :30 Hydralazine HCl (Apresoline) 10 mg Q8 PO Last administered on 04/14/17 06:04; Admin Dose 10 MG; Start 04/10/17 at 14:00 Furosemide (Lasix) 40 mg DAILY PO Last administered on 04/14/17 08:07; Admin Dose 40 MG; Start 04/12/17 at 09:00 Nicotine (Nicoderm 14 Mg/ 24hr) 1 patch DAILY TRANSDERM Last administered on 08:08; Admin Dose 1 PATCH; Start 04/12/17 at 12:00 Isosorbide Dinitrate (Isordil) 20 mg TID PO Last administered on 04/14/17 08: 07; Admin Dose 20 MG; Start 04/13/17 at 13:00 SARAH FARLEY MD Apr 14, 2017 10:02
[2017-04-14 10:22] LABS: BASOPHILS % 0.3 % (0.0-2.0); EOSINOPHILS # 0.1 10^3/ul (0.0-0.5); EOSINOPHILS % 0.8 % (0.0-7.0); HEMATOCRIT 43.9 % (42.0-52.0); HEMOGLOBIN 13.5 g/dl (14.0-18.0); LYMPHOCYTES # 1.7 10^3/ul (0.8-2.9); LYMPHOCYTES % 19.4 % (15.0-51.0); MEAN CORPUSCULAR HEMOGLOBIN 28.2 pg (29.0-33.0); MEAN CORPUSCULAR HGB CONC 30.8 g/dl (32.0-37.0); MEAN CORPUSCULAR VOLUME 91.6 fl (82.0-101.0); MEAN PLATELET VOLUME 12.1 fl (7.4-10.4); MONOCYTE # 0.6 10^3/ul (0.3-0.9); MONOCYTES % 6.8 % (0.0-11.0); NEUTROPHILS % 72.5 % (39.0-77.0); PLATELET COUNT 172 10^3/UL (140-415); RED BLOOD COUNT 4.79 10^6/ul (4.70-6.10); WHITE BLOOD COUNT 8.8 10^3/ul (4.8-10.8)
--- NOTE | 2017-04-14 10:33 | CONS ---
Date/Time of Note Date/Time of Note DATE: 04/14/17 TIME: 10:31 Assessment/Plan Assessment/Plan Additional Assessment/Plan Assessment and recommendations; 1. Patient admitted with respiratory failure due to pulmonary edema status post extubation with excellent overall clinical status. 2. Prior CABG. 3. Renal insufficiency. 4. Cardiomyopathy. 5. Likely underlying sleep apnea. Continue current treatment. Patient will need to have a sleep study done on outpatient basis. Consider discharge. Consultation Date/Type/Reason Admit Date/Time Apr 08, 2017 at 20:17 Initial Consult Date 04/09/17 Type of Consultation: Pulmonary Referring Provider: CHOCO MONTOYA 24 HR Interval Summary Free Text/Dictation Patient condition stable. Denies any shortness of breath, chest pain, wheezing cough or sputum production. On exam; middle-aged male, morbidly obese, awake and alert. Currently in no distress. Exam/Review of Systems Vital Signs Vitals Vital Signs Date Time Temp Pulse Resp B/P Pulse Ox O2 Delivery O2 Flow Rate FiO2 04/14/17 08:30 67 04/14/17 08:08 98.5 18 155/94 92 04/14/17 06:04 Nasal Cannula 3.0 04/14/17 03:52 40 Intake and Output 04/13/17 04/13/17 04/14/17 15:00 23:00 07:00 Intake Total 800 ml 400 ml Output Total 1800 ml 450 ml Balance -1000 ml -50 ml Exam HEENT exam; supple neck, no JVD. No lymphadenopathy. Midline trachea. No thyromegaly. Pharynx is clear. Patient has fair dentition. Chest exam; diminished but clear breath sound. S1-S2 audible, no murmurs. Regular rhythm. There is a well-healed sternal scar. Abdomen exam; soft, protuberant. Nontender. No organomegaly. Bowel sounds audible. Extremity exam; no peripheral edema. Pulses 2+ bilaterally. 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 Results Result Diagram: 04/14/17 0940 04/13/17 1351 Results 24 hrs Laboratory Tests Test 04/13/17 12:45 04/13/17 13:51 04/13/17 17:29 04/13/17 21:48 Bedside Glucose 203 232 H 194 White Blood Count 8.4 Red Blood Count 4.60 L Hemoglobin 13.4 L Hematocrit 42.7 Mean Corpuscular Volume 92.8 Mean Corpuscular Hemoglobin 29.1 Mean Corpuscular Hemoglobin Concent 31.4 L Red Cell Distribution Width 13.9 Platelet Count 187 Mean Platelet Volume 12.1 H Neutrophils % 93.2 H Lymphocytes % 4.5 L Monocytes % 1.7 Eosinophils % 0.0 Basophils % 0.1 Nucleated Red Blood Cells % 0.0 Neutrophils # (Manual) 8 H Lymphocytes # 0.4 L Monocytes # 0.1 L Eosinophils # 0.0 Basophils # 0.0 Nucleated Red Blood Cells # 0.0 Sodium Level 139 Potassium Level 4.8 Chloride Level 101 Carbon Dioxide Level 29 Anion Gap 14 Blood Urea Nitrogen 59 H Creatinine 2.52 H Glucose Level 262 H Calcium Level 8.3 L Test 04/14/17 03:42 04/14/17 07:55 04/14/17 09:40 Bedside Glucose 137 101 White Blood Count 8.8 Red Blood Count 4.79 Hemoglobin 13.5 L Hematocrit 43.9 Mean Corpuscular Volume 91.6 Mean Corpuscular Hemoglobin 28.2 L Mean Corpuscular Hemoglobin Concent 30.8 L Red Cell Distribution Width 14.0 Platelet Count 172 Mean Platelet Volume 12.1 H Neutrophils % 72.5 Lymphocytes % 19.4 Monocytes % 6.8 Eosinophils % 0.8 Basophils % 0.3 Nucleated Red Blood Cells % 0.0 Neutrophils # (Manual) 6 Lymphocytes # 1.7 Monocytes # 0.6 Eosinophils # 0.1 Basophils # 0.0 Nucleated Red Blood Cells # 0.0 Medications Medications Current Medications Hydralazine HCl (Apresoline) 10 mg Q4H PRN IV HTN Last administered on 00:39; Admin Dose 10 MG; Start 04/08/17 at 22:30 Carvedilol (Coreg) 25 mg BID PO Last administered on 04/14/17 08:08; Admin Dose 25 MG; Start 04/09/17 at 09:00 Clopidogrel Bisulfate (plaVIX) 75 mg DAILY PO Last administered on 04/14/17 08 :08; Admin Dose 75 MG; Start 04/09/17 at 09:00 Insulin Glargine (Lantus) 20 unit DAILY@08 SC Last administered on 04/14/17 08 :11; Admin Dose 20 UNIT; Start 04/09/17 at 08:00 Diagnostic Test (Pha) (Accu-Chek) 1 ea 02 XX Last administered on 04/11/17 02: 19; Admin Dose 1 EA; Start 04/09/17 at 02:00 Insulin Glargine (Lantus) 10 unit QHS SC Last administered on 04/13/17 21:52; Admin Dose 10 UNIT; Start 04/09/17 at 21:00 Miscellaneous Information 1 ea NOTE XX ; Start 04/09/17 at 00:30 Glucose (Glutose) 15 gm Q15M PRN PO DECREASED GLUCOSE; Start 04/09/17 at 00:30 Glucose (Glutose) 22.5 gm Q15M PRN PO DECREASED GLUCOSE; Start 04/09/17 at 00: 30 Dextrose (D50w Syringe) 25 ml Q15M PRN IV DECREASED GLUCOSE; Start 04/09/17 at 00:30 Dextrose (D50w Syringe) 50 ml Q15M PRN IV DECREASED GLUCOSE; Start 04/09/17 at 00:30 Glucagon (Glucagen) 1 mg Q15M PRN IM DECREASED GLUCOSE; Start 04/09/17 at 00:30 Glucose (Glutose) 15 gm Q15M PRN BUCCAL DECREASED GLUCOSE; Start 04/09/17 at 00 :30 Hydralazine HCl (Apresoline) 10 mg Q8 PO Last administered on 04/14/17 06:04; Admin Dose 10 MG; Start 04/10/17 at 14:00 Furosemide (Lasix) 40 mg DAILY PO Last administered on 04/14/17 08:07; Admin Dose 40 MG; Start 04/12/17 at 09:00 Nicotine (Nicoderm 14 Mg/ 24hr) 1 patch DAILY TRANSDERM Last administered on 08:08; Admin Dose 1 PATCH; Start 04/12/17 at 12:00 Isosorbide Dinitrate (Isordil) 20 mg TID PO Last administered on 04/14/17 08: 07; Admin Dose 20 MG; Start 04/13/17 at 13:00 MARIE JEFFREY Apr 14, 2017 10:33
[2017-04-14 10:41] LABS: CALCIUM 8.6 mg/dl (8.4-10.2); CREATININE 2.46 mg/dl (0.61-1.24); POTASSIUM 4.3 mmol/L (3.5-5.1)
[2017-04-14] MEDS ORDERED: predniSONE 20 MG TAB PO SCH (11:30)
--- NOTE | 2017-04-14 11:30 | PN ---
Date/Time of Note Date/Time of Note DATE: 04/14/17 TIME: 11:27 Assessment/Plan VTE Prophylaxis VTE Prophylaxis Intervention: SCD's Lines/Catheters IV C[facility]ter Type (from [facility] Urinary Cath still in place: No Assessment/Plan Chief Complaint/Hosp Course Assessment/Plan: 51-year-old male presents with: 1. Hypercapnic and hypoxic respiratory failure, s/p intubation, and now extubated 4 days ago. Likely secondary to combination of COPD and CHF exacerbation. Slowly improving -Continue oxygen supplementation -Continue breathing treatments, steroid, antibiotic and diuretics -Follow-up pulmonary recommendations -Continue CPAP at night, will need to make sure this as well as home oxygen is set up at home for use-case management is working on this, have indicated they will have final orders and by Saturday, in 24 hours 2. CAD with history of CABG -Continue home medications including his Plavix -Follow-up cardiology consult recommendations 3. Ischemic cardiomyopathy with systolic dysfunction, with EF of 40% per recent 2D echo 2 weeks ago -Continue home cardiac medications -Follow-up cardiology consult recommendations -Continue physical therapy 4. Acute CHF exacerbation, systolic - BNP on admission was 13,200, again slowly improving -Continue diuretic dosage per renal recommendations for now, and vent support -Monitor ins and outs. 5. History of diabetes: recent A1c 7.9 -Insulin sliding scale while in house 6. Obstructive sleep apnea: Status post extubation, improved -Continue CPAP nightly, follow-up pulmonary consult recommendation 7. Hypertension: BP improved now -Continue home meds with adjustment as needed 8. CKD: Stable, but creatinine still elevated , component of cardiorenal syndrome as well. Patient has adequate urine up -Avoid nephrotoxins -Follow-up nephrology consult recommendations, including Lasix 40 mg p.o. daily Dispo: Likely DC home in 24 hours if breathing status continues to be stable. Patient encouraged to continue to use CPAP at night, case management is working on this machine as well as home oxygen set up for home use. Problems: Subjective 24 Hr Interval Summary Free Text/Dictation No acute events overnight, patient using BiPAP at night. Exam/Review of Systems Vital Signs Vitals Vital Signs Date Time Temp Pulse Resp B/P Pulse Ox O2 Delivery O2 Flow Rate FiO2 04/14/17 08:30 67 04/14/17 08:08 98.5 18 155/94 92 04/14/17 06:04 Nasal Cannula 3.0 04/14/17 03:52 40 Intake and Output 04/13/17 04/13/17 04/14/17 15:00 23:00 07:00 Intake Total 800 ml 400 ml Output Total 1800 ml 450 ml Balance -1000 ml -50 ml Exam Constitutional: No acute distress Head: atraumatic, normocephalic Eyes: PERRL Respiratory: Less diminished breath sounds Cardiovascular: S1, S2 heard Gastrointestinal: other (Morbidly obese. Less anasarca) Extremities: 1+ edema bilateral lower extremely Results Result Diagram: 04/14/1740 04/14/17 0940 Results 24 hrs Laboratory Tests Test 04/13/17 12:45 04/13/17 13:51 04/13/17 17:29 04/13/17 21:48 Bedside Glucose 203 232 H 194 White Blood Count 8.4 Red Blood Count 4.60 L Hemoglobin 13.4 L Hematocrit 42.7 Mean Corpuscular Volume 92.8 Mean Corpuscular Hemoglobin 29.1 Mean Corpuscular Hemoglobin Concent 31.4 L Red Cell Distribution Width 13.9 Platelet Count 187 Mean Platelet Volume 12.1 H Neutrophils % 93.2 H Lymphocytes % 4.5 L Monocytes % 1.7 Eosinophils % 0.0 Basophils % 0.1 Nucleated Red Blood Cells % 0.0 Neutrophils # (Manual) 8 H Lymphocytes # 0.4 L Monocytes # 0.1 L Eosinophils # 0.0 Basophils # 0.0 Nucleated Red Blood Cells # 0.0 Sodium Level 139 Potassium Level 4.8 Chloride Level 101 Carbon Dioxide Level 29 Anion Gap 14 Blood Urea Nitrogen 59 H Creatinine 2.52 H Glucose Level 262 H Calcium Level 8.3 L Test 04/14/17 03:42 04/14/17 07:55 04/14/17 09:40 Bedside Glucose 137 101 White Blood Count 8.8 Red Blood Count 4.79 Hemoglobin 13.5 L Hematocrit 43.9 Mean Corpuscular Volume 91.6 Mean Corpuscular Hemoglobin 28.2 L Mean Corpuscular Hemoglobin Concent 30.8 L Red Cell Distribution Width 14.0 Platelet Count 172 Mean Platelet Volume 12.1 H Neutrophils % 72.5 Lymphocytes % 19.4 Monocytes % 6.8 Eosinophils % 0.8 Basophils % 0.3 Nucleated Red Blood Cells % 0.0 Neutrophils # (Manual) 6 Lymphocytes # 1.7 Monocytes # 0.6 Eosinophils # 0.1 Basophils # 0.0 Nucleated Red Blood Cells # 0.0 Sodium Level 144 Potassium Level 4.3 Chloride Level 100 Carbon Dioxide Level 33 H Anion Gap 15 Blood Urea Nitrogen 59 H Creatinine 2.46 H Glucose Level 124 # Calcium Level 8.6 Medications Medications Current Medications Hydralazine HCl (Apresoline) 10 mg Q4H PRN IV HTN Last administered on 00:39; Admin Dose 10 MG; Start 04/08/17 at 22:30 Carvedilol (Coreg) 25 mg BID PO Last administered on 04/14/17 08:08; Admin Dose 25 MG; Start 04/09/17 at 09:00 Clopidogrel Bisulfate (plaVIX) 75 mg DAILY PO Last administered on 04/14/17 08 :08; Admin Dose 75 MG; Start 04/09/17 at 09:00 Insulin Glargine (Lantus) 20 unit DAILY@08 SC Last administered on 04/14/17 08 :11; Admin Dose 20 UNIT; Start 04/09/17 at 08:00 Diagnostic Test (Pha) (Accu-Chek) 1 ea 02 XX Last administered on 04/11/17 02: 19; Admin Dose 1 EA; Start 04/09/17 at 02:00 Insulin Glargine (Lantus) 10 unit QHS SC Last administered on 04/13/17 21:52; Admin Dose 10 UNIT; Start 04/09/17 at 21:00 Miscellaneous Information 1 ea NOTE XX ; Start 04/09/17 at 00:30 Glucose (Glutose) 15 gm Q15M PRN PO DECREASED GLUCOSE; Start 04/09/17 at 00:30 Glucose (Glutose) 22.5 gm Q15M PRN PO DECREASED GLUCOSE; Start 04/09/17 at 00: 30 Dextrose (D50w Syringe) 25 ml Q15M PRN IV DECREASED GLUCOSE; Start 04/09/17 at 00:30 Dextrose (D50w Syringe) 50 ml Q15M PRN IV DECREASED GLUCOSE; Start 04/09/17 at 00:30 Glucagon (Glucagen) 1 mg Q15M PRN IM DECREASED GLUCOSE; Start 04/09/17 at 00:30 Glucose (Glutose) 15 gm Q15M PRN BUCCAL DECREASED GLUCOSE; Start 04/09/17 at 00 :30 Hydralazine HCl (Apresoline) 10 mg Q8 PO Last administered on 04/14/17 06:04; Admin Dose 10 MG; Start 04/10/17 at 14:00 Furosemide (Lasix) 40 mg DAILY PO Last administered on 04/14/17 08:07; Admin Dose 40 MG; Start 04/12/17 at 09:00 Nicotine (Nicoderm 14 Mg/ 24hr) 1 patch DAILY TRANSDERM Last administered on 08:08; Admin Dose 1 PATCH; Start 04/12/17 at 12:00 Isosorbide Dinitrate (Isordil) 20 mg TID PO Last administered on 04/14/17 08: 07; Admin Dose 20 MG; Start 04/13/17 at 13:00 Prednisone (Prednisone) 40 mg DAILY PO ; Start 04/14/17 at 11:30; Stop 04/15/17 at 13:00; Status CHOCO THOMAS Apr 14, 2017 11:30
--- NOTE | 2017-04-14 11:56 | CONS ---
Date/Time of Note Date/Time of Note DATE: 04/14/17 TIME: 11:52 Assessment/Plan Assessment/Plan Additional Assessment/Plan 1. Acute resp failure intubated multifactorial due to COPD and CHF exacerbation - no dyspnea at present. 2. acute kidney injury on CKD due to Cardiorenal syndrome- BUN/ Cr = 59/2.46. Cr trending down 3. Acute CHF Exacerbation , acute on chronic ,systolic, EF 40% on ECHO 4. Hypertension 5. Hyperlipidemia 6. H/o CAD S/p CABG Plan: Thank you Dr. Montoya for this consultation - manager specialty to arrange home o2 beforre dc home. Possible dc Saturday if arranged so S/p lasix 40mg IV in AM, lasix 20mg iV at 6 pm Strict I/o, Muller care last ECHO showed EF 40%, renal US unremarkable in 02/2017 will continue to follow up, AML ,CXR and ABG has been ordered will follow up DW DR Heber Allan Consultation Date/Type/Reason Admit Date/Time Apr 08, 2017 at 20:17 Initial Consult Date 04/09/17 Type of Consultation: Pulmonary Referring Provider: CHOCO MONTOYA 24 HR Interval Summary Free Text/Dictation Denies any chest pain, remains comfortable on o2 2L nc. dw staff. Constitutional: improved Exam/Review of Systems Vital Signs Vitals Vital Signs Date Time Temp Pulse Resp B/P Pulse Ox O2 Delivery O2 Flow Rate FiO2 04/14/17 08:30 67 04/14/17 08:08 98.5 18 155/94 92 04/14/17 06:04 Nasal Cannula 3.0 04/14/17 03:52 40 Intake and Output 04/13/17 04/13/17 04/14/17 15:00 23:00 07:00 Intake Total 800 ml 400 ml Output Total 1800 ml 450 ml Balance -1000 ml -50 ml Exam Constitutional: alert, oriented, well developed Respiratory: clear to auscultation, normal air movement Cardiovascular: nl pulses, other (bradycardia), regular rate and rhythm Gastrointestinal: non-tender, soft Musculoskeletal: nl extremities to inspection Extremities: normal pulses Neurological: nl mental status, nl speech Results Result Diagram: 04/14/17 0940 04/14/17 0940 Results 24 hrs Laboratory Tests Test 04/13/17 12:45 04/13/17 13:51 04/13/17 17:29 04/13/17 21:48 Bedside Glucose 203 232 H 194 White Blood Count 8.4 Red Blood Count 4.60 L Hemoglobin 13.4 L Hematocrit 42.7 Mean Corpuscular Volume 92.8 Mean Corpuscular Hemoglobin 29.1 Mean Corpuscular Hemoglobin Concent 31.4 L Red Cell Distribution Width 13.9 Platelet Count 187 Mean Platelet Volume 12.1 H Neutrophils % 93.2 H Lymphocytes % 4.5 L Monocytes % 1.7 Eosinophils % 0.0 Basophils % 0.1 Nucleated Red Blood Cells % 0.0 Neutrophils # (Manual) 8 H Lymphocytes # 0.4 L Monocytes # 0.1 L Eosinophils # 0.0 Basophils # 0.0 Nucleated Red Blood Cells # 0.0 Sodium Level 139 Potassium Level 4.8 Chloride Level 101 Carbon Dioxide Level 29 Anion Gap 14 Blood Urea Nitrogen 59 H Creatinine 2.52 H Glucose Level 262 H Calcium Level 8.3 L Test 04/14/17 03:42 04/14/17 07:55 04/14/17 09:40 Bedside Glucose 137 101 White Blood Count 8.8 Red Blood Count 4.79 Hemoglobin 13.5 L Hematocrit 43.9 Mean Corpuscular Volume 91.6 Mean Corpuscular Hemoglobin 28.2 L Mean Corpuscular Hemoglobin Concent 30.8 L Red Cell Distribution Width 14.0 Platelet Count 172 Mean Platelet Volume 12.1 H Neutrophils % 72.5 Lymphocytes % 19.4 Monocytes % 6.8 Eosinophils % 0.8 Basophils % 0.3 Nucleated Red Blood Cells % 0.0 Neutrophils # (Manual) 6 Lymphocytes # 1.7 Monocytes # 0.6 Eosinophils # 0.1 Basophils # 0.0 Nucleated Red Blood Cells # 0.0 Sodium Level 144 Potassium Level 4.3 Chloride Level 100 Carbon Dioxide Level 33 H Anion Gap 15 Blood Urea Nitrogen 59 H Creatinine 2.46 H Glucose Level 124 # Calcium Level 8.6 Medications Medications Current Medications Hydralazine HCl (Apresoline) 10 mg Q4H PRN IV HTN Last administered on 00:39; Admin Dose 10 MG; Start 04/08/17 at 22:30 Carvedilol (Coreg) 25 mg BID PO Last administered on 04/14/17 08:08; Admin Dose 25 MG; Start 04/09/17 at 09:00 Clopidogrel Bisulfate (plaVIX) 75 mg DAILY PO Last administered on 04/14/17 08 :08; Admin Dose 75 MG; Start 04/09/17 at 09:00 Insulin Glargine (Lantus) 20 unit DAILY@08 SC Last administered on 04/14/17 08 :11; Admin Dose 20 UNIT; Start 04/09/17 at 08:00 Diagnostic Test (Pha) (Accu-Chek) 1 ea 02 XX Last administered on 04/11/17 02: 19; Admin Dose 1 EA; Start 04/09/17 at 02:00 Insulin Glargine (Lantus) 10 unit QHS SC Last administered on 04/13/17 21:52; Admin Dose 10 UNIT; Start 04/09/17 at 21:00 Miscellaneous Information 1 ea NOTE XX ; Start 04/09/17 at 00:30 Glucose (Glutose) 15 gm Q15M PRN PO DECREASED GLUCOSE; Start 04/09/17 at 00:30 Glucose (Glutose) 22.5 gm Q15M PRN PO DECREASED GLUCOSE; Start 04/09/17 at 00: 30 Dextrose (D50w Syringe) 25 ml Q15M PRN IV DECREASED GLUCOSE; Start 04/09/17 at 00:30 Dextrose (D50w Syringe) 50 ml Q15M PRN IV DECREASED GLUCOSE; Start 04/09/17 at 00:30 Glucagon (Glucagen) 1 mg Q15M PRN IM DECREASED GLUCOSE; Start 04/09/17 at 00:30 Glucose (Glutose) 15 gm Q15M PRN BUCCAL DECREASED GLUCOSE; Start 04/09/17 at 00 :30 Hydralazine HCl (Apresoline) 10 mg Q8 PO Last administered on 04/14/17 06:04; Admin Dose 10 MG; Start 04/10/17 at 14:00 Furosemide (Lasix) 40 mg DAILY PO Last administered on 04/14/17 08:07; Admin Dose 40 MG; Start 04/12/17 at 09:00 Nicotine (Nicoderm 14 Mg/ 24hr) 1 patch DAILY TRANSDERM Last administered on 08:08; Admin Dose 1 PATCH; Start 04/12/17 at 12:00 Isosorbide Dinitrate (Isordil) 20 mg TID PO Last administered on 04/14/17 08: 07; Admin Dose 20 MG; Start 04/13/17 at 13:00 Prednisone (Prednisone) 40 mg DAILY PO ; Start 04/14/17 at 11:30; Stop 04/15/17 at 13:00; Status ANT FOREMAN Apr 14, 2017 11:56
--- NOTE | 2017-04-14 14:42 | PDOCDIS ---
Discharge Instructions CONDITION Patient Condition: Stable HOME CARE INSTRUCTIONS: Special Diet: CCD ACTIVITY: Activity Restrictions: Slowly Increase Activity Rest between Activity Avoid heavy lifting FOLLOW UP/APPOINTMENTS Follow-up Plan Please use your BiPAP machine at night as instructed. Please follow-up with her regular doctor in the clinic in 1 week. Please take your medications as prescribed. CHOCO MONTOYA Apr 14, 2017 14:42
[2017-04-14] MEDS ORDERED: PRED20TA PO (14:46)
[2017-04-14] MEDS ORDERED: ISOS10TA2 PO (14:46)
[2017-04-14] MEDS ORDERED: Nicotine (14 Mg/24 Hr) TRANSDERM (14:46)
[2017-04-14] MEDS ORDERED: FURO40TA4 PO (14:46)
[2017-04-14] MEDS ORDERED: LANT3I SC (14:46)
--- NOTE | 2017-04-14 14:53 | DS ---
Date/Time of Note Date/Time of Note DATE: 04/14/17 TIME: 14:48 Discharge Summary Admission/Discharge Info Admit Date/Time Apr 08, 2017 at 20:17 Discharge Date/Time Discharge Diagnosis 1. Hypercapnic and hypoxic respiratory failure, s/p intubation, and now extubated. Likely secondary to combination of COPD and CHF exacerbation. Improved 2. CAD with history of CABG 3. Ischemic cardiomyopathy with systolic dysfunction, with EF of 40% per recent 2D echo 2 weeks ago 4. Acute CHF exacerbation, systolic - BNP on admission was 13,200, again slowly improving 5. History of diabetes: recent A1c 7.9 6. Obstructive sleep apnea: Status post extubation, improved -Continue CPAP nightly 7. Hypertension 8. CKD -creatinine appears back at baseline Patient Condition: Stable Hospital Course 51-year-old morbidly obese male with a history of CAD, CABG, DONALD on home CPAP, hypertension, diabetes and a probable COPD who presented to the emergency department complaining of shortness of breath. Patient was admitted here recently for shortness of breath and was actually discharged 2 weeks ago. At that time he was treated with positive ventilation, breathing treatments and steroids. When patient presented to the ER today, ABG shows a pH of 7.25, PCO2 74, PO2 69 and a bicarb of 32. Patient was initially admitted to telemetry unit after he was placed on BiPAP but shortly after admission he was noted to be somnolent and became unresponsive. Repeat ABG shows worsening pH and PCO2. Patient is now intubated and admitted to ICU. He is a chest x-ray shows cardiomegaly, central pulmonary vascular congestion and interstitial prominence is seen in both lungs and small bilateral pleural effusions with associated basilar atelectasis. Labs shows a creatinine of 2.46, which is stable and his BNP was 13,200. So he was admitted to intensive care unit, had to be intubated , seen by multiple specialists during this hospital stay including pulmonary, renal, cardiology teams. He was diuresed as well. He was thought to have hypoxemic and hypercapnic respiratory failure secondary to combined COPD and CHF exacerbations. Breathing status improved in the ICU, few days later he is eventually extubated. He was continued on diuresis as well. Ischemic cardiomyopathy with systolic dysfunction, with EF of 40% was found on recent echocardiogram 2 weeks ago. After he was extubated he was able to ambulate with assistance from physical therapy, tolerated p.o. diet. He was also thought to have component of obstructive sleep and recommended for CPAP at night. He was able to tolerate BiPAP at night. He has a machine at home which we confirmed. He has oxygen at home the lining caser help set him up with more oxygen tanks at home to be used in the next few weeks as well. After getting clearance from life consultant teams, with his vital signs stable, him ambulating and tolerating a p.o. diet well now, and his labs are stable, he will be discharged home today in improved condition. See below for full list of discharge medications. Home Meds Active Scripts Prednisone* (Prednisone*) 20 Mg Tab, 40 MG PO DAILY for 2 Days, #4 TAB Prov:RARUTHCHOCO S. 04/14/17 Insulin Glargine* (Lantus*) 100 Unit/Ml Soln, 20 UNIT SC DAILY@08, #1 2 Refills Prov:RAHI,CHOCO S. 04/14/17 Furosemide* (Furosemide*) 40 Mg Tablet, 40 MG PO DAILY, #60 TAB 3 Refills Prov:RAHI,CHOCO S. 04/14/17 Isosorbide Dinitrate* (Isordil*) 10 Mg Tablet, 20 MG PO TID, #90 TAB 3 Refills Prov:RAHI,CHOCO S. 04/14/17 [Nicotine (14 Mg/24 Hr)] 1 PATCH PATCH No Conflict Check, 1 PATCH TRANSDERM DAILY, #30 2 Refills Prov:RAHI,CHOCO S. 04/14/17 Reported Medications [Isosorbide] No Conflict Check, 1 TAB PO BID 03/19/17 Carvedilol* (Carvedilol*) 25 Mg Tablet, 25 MG PO BID, #60 TAB 03/19/17 Hydralazine Hcl* (Hydralazine Hcl*) 25 Mg Tab, 25 MG PO Q8 Y for PRN, #90 TAB 03/19/17 Clopidogrel Bisulfate (Clopidogrel) 75 Mg Tablet, 75 MG PO DAILY, #30 TAB 03/19/17 Glipizide* (Glipizide*) 5 Mg Tablet, 5 MG PO AC BREAKFAST DINNER, TAB 03/19/17 Discontinued Reported Medications Losartan Potassium* (Losartan Potassium*) 50 Mg Tablet, 50 MG PO BID, TAB 03/19/17 Furosemide* (Furosemide*) 40 Mg Tablet, 40 MG PO BID, TAB if needed take tid 03/19/17 Primary Care Provider Not On Staff Doctor Time spent on discharge: > 30 minutes Pending Labs Laboratory Tests Test 04/13/17 17:29 04/13/17 21:48 04/14/17 03:42 04/14/17 07:55 Bedside Glucose 232mg/dL (70-220) 194mg/dL (70-220) 137mg/dL (70-220) 101mg/dL (70-220) Test 04/14/17 09:40 04/14/17 11:56 White Blood Count 8.810^3/ul (4.8-10.8) Red Blood Count 4.7910^6/ul (4.70-6.10) Hemoglobin 13.5g/dl (14.0-18.0) Hematocrit 43.9% (42.0-52.0) Mean Corpuscular Volume 91.6fl (82.0-101.0) Mean Corpuscular Hemoglobin 28.2pg (29.0-33.0) Mean Corpuscular Hemoglobin Concent 30.8g/dl (32.0-37.0) Red Cell Distribution Width 14.0% (11.5-14.5) Platelet Count 54178^3/UL (140-415) Mean Platelet Volume 12.1fl (7.4-10.4) Neutrophils % 72.5% (39.0-77.0) Lymphocytes % 19.4% (15.0-51.0) Monocytes % 6.8% (0.0-11.0) Eosinophils % 0.8% (0.0-7.0) Basophils % 0.3% (0.0-2.0) Nucleated Red Blood Cells % 0.0/100WBC (0.0-0.0) Neutrophils # (Manual) 610^3/ul (1.7-7.5) Lymphocytes # 1.710^3/ul (0.8-2.9) Monocytes # 0.610^3/ul (0.3-0.9) Eosinophils # 0.110^3/ul (0.0-0.5) Basophils # 0.010^3/ul (0.0-0.1) Nucleated Red Blood Cells # 0.010^3/ul (0.0-0.0) Sodium Level 144mmol/L (135-144) Potassium Level 4.3mmol/L (3.5-5.1) Chloride Level 100mmol/L (97-110) Carbon Dioxide Level 33mmol/L (21-31) Anion Gap 15 (8-16) Blood Urea Nitrogen 59mg/dl (7-20) Creatinine 2.46mg/dl (0.61-1.24) Glucose Level 124mg/dl (70-220) Calcium Level 8.6mg/dl (8.4-10.2) Bedside Glucose 99mg/dL (70-220) CHOCO MONTOYA Apr 14, 2017 14:53
[2017-04-14] MEDS: hydrALAzine 20 MG INJ IV PRN (16:00)
== END 2017-04-14 19:50 | disposition home or self-care (01) | DRG 208 ==
LOC: E/R 16:15 → MS4 20:17 → ICU 20:45 → MS4 04-11 11:19
PROVIDERS: ADMIT Internal Medicine; ATTEND Internal Medicine
PROC: 0BH18EZ Insertion of Endotracheal Airway into Trachea, Via Natural or Artificial Opening Endoscopic (ICD-10-PCS; principal; 2017-04-08)
PROC: 5A1945Z Respiratory Ventilation, 24-96 Consecutive Hours (ICD-10-PCS; 2017-04-08)
DX: J96.02 Acute respiratory failure with hypercapnia (principal); I50.23 Acute on chronic systolic (congestive) heart failure; N17.9 Acute kidney failure, unspecified; E11.22 Type 2 diabetes mellitus with diabetic chronic kidney disease; J44.1 Chronic obstructive pulmonary disease with (acute) exacerbation; I13.0 Hypertensive heart and chronic kidney disease with heart failure and stage 1 through stage 4 chronic kidney disease, or unspecified chronic kidney disease; Z68.41 Body mass index [BMI] 40.0-44.9, adult; I25.10 Atherosclerotic heart disease of native coronary artery without angina pectoris; N18.9 Chronic kidney disease, unspecified; I25.5 Ischemic cardiomyopathy; E66.01 Morbid (severe) obesity due to excess calories; G47.33 Obstructive sleep apnea (adult) (pediatric); E78.5 Hyperlipidemia, unspecified; F17.200 Nicotine dependence, unspecified, uncomplicated; J96.01 Acute respiratory failure with hypoxia; Z95.1 Presence of aortocoronary bypass graft; Z79.02 Long term (current) use of antithrombotics/antiplatelets; Z79.4 Long term (current) use of insulin; Z91.14 Patient's other noncompliance with medication regimen; Z91.19 Patient's noncompliance with other medical treatment and regimen
CPT/HCPCS: 31500; 36415; 36600; 71010; 80048; 80053; 80061; 81001; 82550; 82553; 82803; 82962; 83735; 83880; 84100; 84484; 85025; 85610; 85730; 87081; 93005; 94002; 94003; 94660; 94664; 94770; 96374; 97162; J1940; J0360; J1815; J1956; J2920; J2930; J7042; J7512

== ENCOUNTER 2017-05-14 06:34 | Inpatient (IN) | payer MEDICAID, OTHER ==
[2017-05-14] VITALS (27 sets, daily range): BP systolic 122–170; BP diastolic 66–105; PULSE 82–102; RESP 16–28; Ht 180.3 cm; Wt 131.0 kg
[~2017-05-14] VITALS: Ht 180.3 cm; Wt 131.0 kg
[~2017-05-14 06:34] MED LIST changes: +ISOS10TA2 PO; +LANT3I SC; -LOSA50TA6 PO; +Nicotine (14 Mg/24 Hr) TRANSDERM; +PRED20TA PO
[2017-05-14] MEDS ORDERED: ASPIRIN 81 MG TAB PO STA (07:03)
[2017-05-14] MEDS ORDERED: NITROGLYCERIN 2% 1 GM OINT PKT TD STA (07:03)
[2017-05-14] MEDS ORDERED: FUROSEMIDE 40 MG INJ IV ONE ×2 (07:30→20:00)
[2017-05-14] MEDS ORDERED: NITROGLYCERIN (SL) 0.4 MG TAB SL PRN (07:30)
[2017-05-14] MEDS ORDERED: ASPIRIN 81 MG TAB ONE (07:33)
[2017-05-14] MEDS ORDERED: FUROSEMIDE 40 MG INJ ONE (07:33)
[2017-05-14] MEDS ORDERED: NITROGLYCERIN 2% 1 GM OINT PKT ONE (07:34)
[2017-05-14] MEDS ORDERED: NITROGLYCERIN (SL) 0.4 MG TAB ONE (07:34)
[2017-05-14 07:45] LABS: BASOPHIL # 0.1 10^3/ul (0.0-0.1); BASOPHILS % 0.8 % (0.0-2.0); EOSINOPHILS # 0.1 10^3/ul (0.0-0.5); EOSINOPHILS % 1.4 % (0.0-7.0); HEMATOCRIT 44.2 % (42.0-52.0); HEMOGLOBIN 13.7 g/dl (14.0-18.0); LYMPHOCYTES # 1.4 10^3/ul (0.8-2.9); LYMPHOCYTES % 15.8 % (15.0-51.0); MEAN CORPUSCULAR HEMOGLOBIN 27.6 pg (29.0-33.0); MEAN CORPUSCULAR VOLUME 89.1 fl (82.0-101.0); MEAN PLATELET VOLUME 11.4 fl (7.4-10.4); MONOCYTE # 0.4 10^3/ul (0.3-0.9); NEUTROPHIL # 6.7 10^3/ul (1.6-7.5); NEUTROPHILS % 76.7 % (39.0-77.0); PLATELET COUNT 233 10^3/UL (140-415); RED BLOOD COUNT 4.96 10^6/ul (4.70-6.10); RED CELL DISTRIBUTION WIDTH 14.2 % (11.5-14.5); WHITE BLOOD COUNT 8.8 10^3/ul (4.8-10.8)
[2017-05-14 08:23] LABS: CALCIUM 8.6 mg/dl (8.4-10.2); CREATININE 2.99 mg/dl (0.61-1.24); POTASSIUM 3.8 mmol/L (3.5-5.1)
[2017-05-14 08:39] LABS: TROPONIN-I 0.149 ng/ml (0.00-0.12)
--- NOTE | 2017-05-14 09:16 | ERA ---
ER Documentation Chief Complaint Date/Time DATE: 05/14/17 TIME: 09:13 Chief Complaint CP SINCE LAST NIGHT AT 2AM W/ SOB. HX TRIPLE CORONARY BYPASS 05/2012. HPI Patient is a 51-year-old male with coronary disease, hypertension, and diabetes who presents with chest pain and shortness of breath. He said that he had a CABG in 2011. He said he started with shortness of breath at 2 AM which comes and goes. He has shortness of breath with minimal exertion. He has bilateral lower extremity swelling. 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 ROS All systems reviewed and are negative except as per history of present illness. Medications Home Meds Active Scripts Prednisone* (Prednisone*) 20 Mg Tab, 40 MG PO DAILY for 2 Days, #4 TAB Prov:CHOCO MONTOYA S. 04/14/17 Insulin Glargine* (Lantus*) 100 Unit/Ml Soln, 20 UNIT SC DAILY@08, #1 2 Refills Prov:CHOCO MONTOYA S. 04/14/17 Furosemide* (Furosemide*) 40 Mg Tablet, 40 MG PO DAILY, #60 TAB 3 Refills Prov:TOÑO MONTOYAP S. 04/14/17 Isosorbide Dinitrate* (Isordil*) 10 Mg Tablet, 20 MG PO TID, #90 TAB 3 Refills Prov:CHOCO MONTOYA S. 04/14/17 [Nicotine (14 Mg/24 Hr)] 1 PATCH PATCH No Conflict Check, 1 PATCH TRANSDERM DAILY, #30 2 Refills Prov:CHOCO MONTOYA S. 04/14/17 Reported Medications [Isosorbide] No Conflict Check, 1 TAB PO BID 03/19/17 Carvedilol* (Carvedilol*) 25 Mg Tablet, 25 MG PO BID, #60 TAB 03/19/17 Hydralazine Hcl* (Hydralazine Hcl*) 25 Mg Tab, 25 MG PO Q8 Y for PRN, #90 TAB 03/19/17 Clopidogrel Bisulfate (Clopidogrel) 75 Mg Tablet, 75 MG PO DAILY, #30 TAB 03/19/17 Glipizide* (Glipizide*) 5 Mg Tablet, 5 MG PO AC BREAKFAST DINNER, TAB 03/19/17 Allergies Allergies: Coded Allergies: No Known Allergy (Unverified , 04/08/17) PMhx/Soc History of Surgery: Yes Anesthesia Reaction: No Hx Neurological Disorder: Yes Hx Respiratory Disorders: Yes Hx Cardiac Disorders: Yes (CABAGE CADHEART FAILURE) Hx Psychiatric Problems: Yes Hx Miscellaneous Medical Probl: Yes (CAD s/p CABG, DONALD on CPAP, HTN, DM, COPD, CHF) Hx Alcohol Use: No Hx Substance Use: No Hx Tobacco Use: No Smoking Status: Former smoker FmHx Family History: coronary disease Physical Exam Vitals Vital Signs Date Time Temp Pulse Resp B/P Pulse Ox O2 Delivery O2 Flow Rate FiO2 05/14/17 07:21 Nasal Cannula 2 05/14/17 06:50 98.6 100 24 168/102 87 Physical Exam Const: Moderate distress secondary to shortness of breath Head: Atraumatic Eyes: Normal Conjunctiva ENT: Normal External Ears, Nose and Mouth. Neck: Full range of motion..~ No meningismus. Resp: Decreased breath sounds bilaterally Cardio: Regular rate and rhythm, no murmurs Abd: Soft, non tender, non distended. Normal bowel sounds Skin: No petechiae or rashes Back: No midline or flank tenderness Ext: 2+ pitting edema bilaterally Neur: Awake and alert Psych: Normal Mood and Affect Result Diagram: 05/14/1715 05/14/17 0715 Results 24 hrs Laboratory Tests Test 05/14/17 07:15 White Blood Count 8.810^3/ul Red Blood Count 4.9610^6/ul Hemoglobin 13.7g/dl Hematocrit 44.2% Mean Corpuscular Volume 89.1fl Mean Corpuscular Hemoglobin 27.6pg Mean Corpuscular Hemoglobin Concent 31.0g/dl Red Cell Distribution Width 14.2% Platelet Count 47947^3/UL Mean Platelet Volume 11.4fl Neutrophils % 76.7% Lymphocytes % 15.8% Monocytes % 5.0% Eosinophils % 1.4% Basophils % 0.8% Nucleated Red Blood Cells % 0.0/100WBC Neutrophils # 6.710^3/ul Lymphocytes # 1.410^3/ul Monocytes # 0.410^3/ul Eosinophils # 0.110^3/ul Basophils # 0.110^3/ul Nucleated Red Blood Cells # 0.010^3/ul Sodium Level 142mmol/L Potassium Level 3.8mmol/L Chloride Level 104mmol/L Carbon Dioxide Level 30mmol/L Anion Gap 12 Blood Urea Nitrogen 36mg/dl Creatinine 2.99mg/dl Glucose Level 175mg/dl Calcium Level 8.6mg/dl Troponin I 0.149ng/ml Current Medications Medications (Trade) Dose Ordered Sig/Chi Route PRN Reason Start Time Stop Time Status Last Admin Dose Admin Aspirin (Aspirin) 162 mg ONCE STAT PO 05/14/17 07:03 05/14/17 07:04 DC 05/14/17 07:38 Nitroglycerin (Nitroglycerin 2% Oint) 1 inch ONCE STAT TD 05/14/17 07:03 05/14/17 07:04 DC 05/14/17 07:38 Nitroglycerin (Nitroglycerin (Sl Tab) 0.4 Mg) 1 tab Q5M UP TO 3 DOSES PRN SL CHEST PAIN 05/14/17 07:30 05/14/17 07:39 Furosemide (Lasix) 40 mg ONCE ONCE IV 05/14/17 07:30 05/14/17 07:31 DC 05/14/17 07:39 Ondansetron HCl (Zofran Inj) 4 mg ER BRIDGE PRN IV NAUSEA AND/OR VOMITING 05/14/17 09:30 05/15/17 09:29 Acetaminophen (Tylenol Tab) 650 mg ER BRIDGE PRN PO MILD PAIN/FEVER 05/14/17 09:30 05/15/17 09:29 Procedures/MDM EKG #1 read by me: Rate/Rhythm: Sinus tachycardia at a rate of 101 Intervals: Normal Impression: Sinus tachycardia with ST depressions diffusely EKG #2 read by me: Rate/Rhythm: Regular rate and rhythm at a rate of 98 intervals: Normal Impression: Sinus rhythm with diffuse ST depressions Chest x-ray pending. Smoking Cessation Therapy: Pt. was lectured for greater than 3 minutes on the health risks of continued smoking and the benefits of cessation. Patient is a 51-year-old male with multiple cardiac risk factors who presents with chest pain shortness of breath. He was found to have a positive troponin consistent with an NSTEMI. There is diffuse ST depressions concerning for ischemia but this is not a STEMI. The patient will be admitted to the panel team and was given aspirin, nitroglycerin, and Lasix. The patient will be admitted to a telemetry bed. I doubt pneumonia, pneumothorax, pulmonary embolism, or aortic dissection. Critical Care: Time: 35 minutes excluding all billable procedures. Treatments/Evaluations: Close monitoring and treatment of unstable vital signs, cardiorespiratory, and neurologic status, while maintaining tight balance of fluid, respiratory, and cardiac interventions. Departure Diagnosis: Primary Impression: NSTEMI (non-ST elevated myocardial infarction) Additional Impression: Chest pain Qualified Code: R07.9 - Chest pain, unspecified type Condition: Serious ERIBERTO MARSH MD May 14, 2017 09:16
[2017-05-14] MEDS ORDERED: ONDANSETRON 4 MG INJ IV PRN ×2 (09:30→10:30)
[2017-05-14] MEDS ORDERED: ACETAMINOPHEN 325 MG TAB PO PRN ×2 (09:30→10:30)
--- NOTE | 2017-05-14 09:47 | RADRPT ---
PROCEDURE: XR Chest 1 view. CLINICAL INDICATION: Shortness of breath. TECHNIQUE: AP views of the chest were obtained. COMPARISON: DR PATTERSON 04/12/2017 FINDINGS: The heart is large. Calcified atherosclerosis is noted in the aorta. Median sternotomy wires overli e the heart. Central pulmonary vascular congestion and interstitial prominence is seen in both lungs . Blunting of the bilateral costophrenic angles is seen. Scattered atelectasis is noted in both lung s. No consolidations are identified. No pneumothorax is seen. Osseous structures are intact. IMPRESSION: Cardiomegaly with calcified atherosclerosis in the aorta. Central pulmonary vascular congestion and interstitial prominence in both lungs. Blunting of the bilateral costophrenic angles that may reflect small pleural effusions. Scattered atelectasis in both lungs. RPTAT: AA .Bernardo Jacques MD, Date Time Electronically viewed and signed by .Bernardo Jacques MD, on 05/14/2017 08:07 .P/
[2017-05-14] MEDS ORDERED: DEXTROSE 50% 50 ML SYRINGE IV PRN ×2 (10:30)
[2017-05-14] MEDS ORDERED: morphine 2 MG INJ IV PRN (10:30)
[2017-05-14] MEDS ORDERED: GLUCOSE GEL 15 GRAM TUBE BUCCAL PRN (10:30)
[2017-05-14] MEDS ORDERED: ALBUTEROL/IPRATROPIUM (NEB) 3 ML AMP HHN PRN (10:30)
[2017-05-14] MEDS ORDERED: NACL 0.9% 3 ML SYG IV SCH (10:30)
[2017-05-14] MEDS ORDERED: GLUCAGON 1 MG INJ IM PRN (10:30)
[2017-05-14] MEDS ORDERED: GLUCOSE GEL 15 GRAM TUBE PO PRN ×2 (10:30)
--- NOTE | 2017-05-14 11:28 | CONS ---
Date/Time of Note Date/Time of Note DATE: 05/14/17 TIME: 11:28 Assessment/Plan Assessment/Plan Additional Assessment/Plan 1. Acute kidney injury on CKD III due to cardiorenal syndrome 2. Acute on chronic CHF exacerbation 3. Acute hypercapnic and hypoxic resp failure, acute on chronic 4. H/O CKD III 5. DONALD 6. H/o CAD S/p CABG 7. H/o COPD 8. H/o CHF Plan : S/p lasix in ED, I will continue Lasix 20mg IV BID Cardiolgoy and Pulmonary has been consulted on case I will order Urine studies including Urine sodium, Urine prot/cr ratio, urine eosinophils, CK total, Uric acid Continue Other meds ABG showed i mprovement in PCo2- pt may need BIPAP as per pulmonary plan Thanks for consultation, we will continue to follow up on patient. Consultation Date/Type/Reason Admit Date/Time Apr Date of Consultation: May 14, 2017 Type of Consultation: NEPHROLOGY Reason for Consultation Phyllis on CKD , with fluid overload Referring Provider: HANNAH ONOFRE [employer] SYSTEMS ADMINISTRATOR Hx of Present Illness 51-year-old male with extensive past medical history including CAD status post CABG, obstructive sleep apnea on nocturnal CPAP, chronic kidney disease, diabetes mellitus, pulmonary hypertension, essential hypertension, cardiomyopathy, and morbid obesity who came to the emergency room with chief complaint of chest pain and dyspnea that started from the night of 05/13/2017. she gets admitted for SOB. she is noted to have CHF exacerbation, on ABG she is noted to have PCO2 72, HCo3 29- she is also noted to have elevated BUN and Cr and renal has been consulte for it, pt was seen early in AM in ED. chest x-ray showed cardiomegaly with central pulmonary vascular congestion and interstitial prominence in both lungs with blunting of the bilateral costophrenic angles Respiratory: cough, pleuritic pain, shortness of breath Musculoskeletal: bone/joint pain, neck pain, swelling Past Medical History Medical History: congestive heart failure, coronary artery disease, diabetes, hypertension, renal disease Past Surgical History Past Surgical Hx: coronary bypass surgery Family History Significant Family History: no pertinent family hx Social History Alcohol Use: none Smoking Status: Former smoker Drug Use: none Exam/Review of Systems Vital Signs Vitals Vital Signs Date Time Temp Pulse Resp B/P Pulse Ox O2 Delivery O2 Flow Rate FiO2 05/14/17 10:59 94 20 149/99 99 Nasal Cannula 4.0 05/14/17 06:50 98.6 Exam Constitutional: distress Psych: no complaints Eyes: nl conjunctiva ENMT: nl external ears & nose Neck: non-tender, supple Respiratory: congested cough, crackles/rales, diminished breath sounds Cardiovascular: nl pulses, regular rate and rhythm Gastrointestinal: non-tender, soft Musculoskeletal: nl extremities to inspection Extremities: normal pulses Neurological: LAND DEVELOPMENT MANAGER II-XII intact Skin: nl turgor Results Result Diagram: 05/14/17 0715 05/14/17 0715 Results 24 hrs Laboratory Tests Test 05/14/17 07:15 White Blood Count 8.8 Red Blood Count 4.96 Hemoglobin 13.7 L Hematocrit 44.2 Mean Corpuscular Volume 89.1 Mean Corpuscular Hemoglobin 27.6 L Mean Corpuscular Hemoglobin Concent 31.0 L Red Cell Distribution Width 14.2 Platelet Count 233 # Mean Platelet Volume 11.4 H Neutrophils % 76.7 Lymphocytes % 15.8 Monocytes % 5.0 Eosinophils % 1.4 Basophils % 0.8 Nucleated Red Blood Cells % 0.0 Neutrophils # 6.7 Lymphocytes # 1.4 Monocytes # 0.4 Eosinophils # 0.1 Basophils # 0.1 Nucleated Red Blood Cells # 0.0 Sodium Level 142 Potassium Level 3.8 Chloride Level 104 Carbon Dioxide Level 30 Anion Gap 12 Blood Urea Nitrogen 36 H Creatinine 2.99 H Glucose Level 175 Calcium Level 8.6 Troponin I 0.149 *H Medications Medications Current Medications Ondansetron HCl (Zofran Inj) 4 mg Q6H PRN IV NAUSEA AND/OR VOMITING; Start at 10:30 Acetaminophen (Tylenol Tab) 650 mg Q6H PRN PO PAIN LEVEL 1-3 OR FEVER; Start at 10:30 Acetaminophen/ Hydrocodone Bitart ([place] (5/325)) 1 tab Q6H PRN PO PAIN LEVEL 4 -6; Start 05/14/17 at 10:30 Morphine Sulfate (morphine) 2 mg Q4H PRN IV PAIN LEVEL 7-10; Start 05/14/17 at 10:30 Heparin Sodium (Porcine) (Heparin (5000 Units/0.5 ml)) 5,000 unit Q8 SC ; Start 05/14/17 at 14:00 Carvedilol (Coreg) 25 mg BID PO ; Start 05/14/17 at 21:00 Clopidogrel Bisulfate (plaVIX) 75 mg DAILY PO ; Start 05/15/17 at 09:00 Isosorbide Dinitrate (Isordil) 20 mg TID PO ; Start 05/14/17 at 13:00 Diagnostic Test (Pha) (Accu-Chek) 1 ea 02 XX ; Start 05/15/17 at 02:00 Insulin Glargine (Lantus) 33 unit DAILY@08 SC ; Start 05/15/17 at 08:00 Miscellaneous Information 1 ea NOTE XX ; Start 05/14/17 at 10:30 Glucose (Glutose) 15 gm Q15M PRN PO DECREASED GLUCOSE; Start 05/14/17 at 10:30 Glucose (Glutose) 22.5 gm Q15M PRN PO DECREASED GLUCOSE; Start 05/14/17 at 10: 30 Dextrose (D50w Syringe) 25 ml Q15M PRN IV DECREASED GLUCOSE; Start 05/14/17 at 10:30 Dextrose (D50w Syringe) 50 ml Q15M PRN IV DECREASED GLUCOSE; Start 05/14/17 at 10:30 Glucagon (Glucagen) 1 mg Q15M PRN IM DECREASED GLUCOSE; Start 05/14/17 at 10:30 Glucose (Glutose) 15 gm Q15M PRN BUCCAL DECREASED GLUCOSE; Start 05/14/17 at 10 :30 ARELI FRANKLIN MD May 14, 2017 11:28
--- NOTE | 2017-05-14 11:35 | HP ---
Date/Time of Note Date/Time of Note DATE: 05/14/17 TIME: 11:23 Assessment/Plan VTE Prophylaxis VTE Prophylaxis Intervention: heparin Lines/Catheters IV C[facility]ter Type [facility]from [facility] [place] Assessment/Plan Chief Complaint/Hosp Course 1. Chest pain. Elevated troponins. The patient has prior history of CAD. Patient will be ruled out for any underlying acute coronary syndrome. Serial troponins will be ordered. A cardiology consult will be obtained. Patient will be continued on Plavix. 2. Acute on chronic CHF exacerbation with systolic dysfunction. The patient will be diuresed adequately while watching the patient's renal function. 3. Acute on chronic respiratory failure. Hypoxic and hypercapnic. Patient has known history of obstructive sleep apnea and hypercapnia. A stat ABG will be obtained. The patient will be started on noninvasive positive pressure ventilation if the patient has evidence of CO2 narcosis. A pulmonology consult will be obtained. The patient will be started on inhaled bronchodilators. 4. Cardiomyopathy with ejection fraction of 40% as per 2D echocardiogram done in February 2017. The patient will be continued on beta-blockers. RADHA inhibitors or ARB's will be avoided because of underlying worsening renal function. 5. Chronic kidney disease. The patient will be evaluated by nephrology. Nephrotoxic drugs will be used with caution. 6. Diabetes mellitus. The patient will be started on sliding scale insulin along with basal insulin and pre-meal insulin. A hemoglobin A1c will be obtained to evaluate the blood glucose control over the past few weeks. 7. Essential hypertension. The patient will be continued on antihypertensives. Plan: The patient will be admitted to inpatient telemetry floor. The patient will be started on a carbohydrate controlled, renal diet. The patient will be started on DVT prophylaxis. The patient will remain a full code. Activities will be as tolerated. The rest of the patient's management will be based on the clinical course, inputs from consultants, and the results of diagnostic studies. Based on the patient's clinical presentation, he most probably requires at least 2 midnights' stay for further management and evaluation of his clinical presentation. The case and management of this patient was fully discussed with Dr. Steinberg. Problems: HPI/ROS Admit Date/Time Admit Date/Time Hx of Present Illness Reason for admission: Chest pain, shortness of breath. Consultants 1. Cardiology. 2. Nephrology. 3. Pulmonary. This is a 51-year-old male with extensive past medical history including CAD status post CABG, obstructive sleep apnea on nocturnal CPAP, chronic kidney disease, diabetes mellitus, pulmonary hypertension, essential hypertension, cardiomyopathy, and morbid obesity who came to the emergency room with chief complaint of chest pain and dyspnea that started from the night of 05/13/2017. The patient verbalized the chest pain as substernal with radiation to the left arm. The patient denied any associated nausea, vomiting, or diaphoresis. Patient verbalized dyspnea with minimal exertion. The patient verbalized bilateral lower extremity edema. The patient denied any fevers, chills, or cough. In the emergency room, the patient was noticed to have a troponin I of 0.149. Patient's chest x-ray showed cardiomegaly with central pulmonary vascular congestion and interstitial prominence in both lungs with blunting of the bilateral costophrenic angles. He was treated with a single dose of aspirin and a single dose of IV Lasix in the emergency room. ROS Constitutional: fatigue Eyes: no complaints ENT: no complaints Respiratory: shortness of breath Cardiovascular: chest pain, edema, orthopenea Gastrointestinal: no complaints Genitourinary: no complaints Musculoskeletal: no complaints Skin: skin lesions Neurologic: no complaints Endocrine: no complaints Lymphatic: no complaints Psychological: no complaints Immunologic: no complaints PMH/Family/Social Past Medical History Medical History: congestive heart failure, coronary artery disease, diabetes, high cholesterol, hypertension, renal disease, other (Cardiomyopathy, pulmonary hypertension, DONALD, morbid obesity) Past Surgical History Past Surgical Hx: coronary bypass surgery Social History Alcohol Use: rarely Smoking Status: Current every day smoker Drug Use: none Exam/Review of Systems Vital Signs Vitals Vital Signs Date Time Temp Pulse Resp B/P Pulse Ox O2 Delivery O2 Flow Rate FiO2 05/14/17 10:59 94 20 149/99 99 Nasal Cannula 4.0 05/14/17 06:50 98.6 Exam Exam General: Adequately build 51 year-old male lying in bed in mild respiratory distress. HEENT: Normocephalic, atraumatic. Eyes: Anicteric sclerae, conjunctivae clear. ENT: Nasal septum midline, oral mucosa moist. Neck supple, no JVD noticed. Respiratory: Bilaterally diminished breath sounds. Use of accessory muscles of respiration. Cardiovascular: S1, S2 heard. No murmurs or gallops. Abdomen: Soft, nontender, and nondistended. Bowel sounds positive in all 4 quadrants. Genitourinary: Deferred. Extremities: No cyanosis. Bilateral lower extremity 2+ pitting edema. Neurologic: Cranial nerves II through XII grossly intact. The patient is somnolent. Wakes up to call and answers questions. Skin: Bilateral lower extremity venous stasis changes. Labs Result Diagram: 05/14/17 0715 05/14/17 0715 Medications Medications Current Medications Ondansetron HCl (Zofran Inj) 4 mg Q6H PRN IV NAUSEA AND/OR VOMITING; Start at 10:30 Aspirin (Aspirin) 81 mg DAILY PO ; Start 05/15/17 at 09:00 Acetaminophen (Tylenol Tab) 650 mg Q6H PRN PO PAIN LEVEL 1-3 OR FEVER; Start at 10:30 Acetaminophen/ Hydrocodone Bitart ([place] (5/325)) 1 tab Q6H PRN PO PAIN LEVEL 4 -6; Start 05/14/17 at 10:30 Morphine Sulfate (morphine) 2 mg Q4H PRN IV PAIN LEVEL 7-10; Start 05/14/17 at 10:30 Heparin Sodium (Porcine) (Heparin (5000 Units/0.5 ml)) 5,000 unit Q8 SC ; Start 05/14/17 at 14:00 Carvedilol (Coreg) 25 mg BID PO ; Start 05/14/17 at 21:00 Clopidogrel Bisulfate (plaVIX) 75 mg DAILY PO ; Start 05/15/17 at 09:00 Isosorbide Dinitrate (Isordil) 20 mg TID PO ; Start 05/14/17 at 13:00 Diagnostic Test (Pha) (Accu-Chek) 1 ea 02 XX ; Start 05/15/17 at 02:00 Insulin Glargine (Lantus) 33 unit DAILY@08 SC ; Start 05/15/17 at 08:00 Miscellaneous Information 1 ea NOTE XX ; Start 05/14/17 at 10:30 Glucose (Glutose) 15 gm Q15M PRN PO DECREASED GLUCOSE; Start 05/14/17 at 10:30 Glucose (Glutose) 22.5 gm Q15M PRN PO DECREASED GLUCOSE; Start 05/14/17 at 10: 30 Dextrose (D50w Syringe) 25 ml Q15M PRN IV DECREASED GLUCOSE; Start 05/14/17 at 10:30 Dextrose (D50w Syringe) 50 ml Q15M PRN IV DECREASED GLUCOSE; Start 05/14/17 at 10:30 Glucagon (Glucagen) 1 mg Q15M PRN IM DECREASED GLUCOSE; Start 05/14/17 at 10:30 Glucose (Glutose) 15 gm Q15M PRN BUCCAL DECREASED GLUCOSE; Start 05/14/17 at 10 :30 Procedures Procedures CXR IMPRESSION: Cardiomegaly with calcified atherosclerosis in the aorta. Central pulmonary vascular congestion and interstitial prominence in both lungs. Blunting of the bilateral costophrenic angles that may reflect small pleural effusions. Scattered atelectasis in both lungs. HANNAH ONOFRE NP May 14, 2017 11:34
[2017-05-14] MEDS ORDERED: ISOSORBIDE DINITRATE 20 MG TAB ONE (11:56)
[2017-05-14] MEDS ORDERED: INSULIN ASPART [NOVOLOG] 3 ML PEN SC SCH ×3 (12:00→20:00)
--- NOTE | 2017-05-14 12:39 | CONS ---
Date/Time of Note Date/Time of Note DATE: 05/14/17 TIME: 12:35 Assessment/Plan Assessment/Plan Additional Assessment/Plan Chest x-ray was reviewed from today which is showing changes of CHF with cardiomegaly. Assessment and recommendations; 1. Patient admitted with chest pain with positive troponins possibly non-STEMI. 2. Prior CABG. 3. Decompensated CHF. 4. Hypertension. 5 diabetes. 6. Likely underlying sleep apnea. Start BiPAP. Continue Lasix. Continue current medications. Obtain ABG. Consultation Date/Type/Reason Admit Date/Time Date of Consultation: May 14, 2017 Type of Consultation: Pulmonary Reason for Consultation Consultation requested for evaluation of shortness of breath. History of presenting illness; patient is a 50-year-old male who came into the emergency room with a few days history of shortness of breath. Patient also having chest pain with deep breathing. Denies any coughing or sputum production. Any fever or chills. Patient also denies having any nausea vomiting. By the time I saw the patient the patient, he appeared comfortable but does appear sleepy. Past medical history; 1. History of CHF. 2. Prior CABG. 3. Obesity. 4. Possibly underlying sleep apnea. 5. Diabetes. 6. Hypertension. Medications; reviewed. Social history; patient is a former smoker. Family history; noncontributory. Occupation history; patient is on disability. Review of systems; difficult to obtain. Patient denies any further chest pain. Shortness of breath has improved. Denies any abdominal pain. Nausea vomiting. General exam; middle-aged male, appearing somnolent. In no distress. Awake. Eyes: no complaints ENT: no complaints Respiratory: shortness of breath Cardiovascular: chest pain, edema, orthopenea Gastrointestinal: no complaints Genitourinary: no complaints Musculoskeletal: no complaints Skin: skin lesions Neurologic: no complaints Lymphatic: no complaints Psychological: no complaints Immunologic: no complaints Past Medical History Medical History: congestive heart failure, coronary artery disease, diabetes, high cholesterol, hypertension, renal disease, other (Cardiomyopathy, pulmonary hypertension, DONALD, morbid obesity) Past Surgical History Past Surgical Hx: coronary bypass surgery Social History Alcohol Use: rarely Smoking Status: Former smoker Drug Use: none Exam/Review of Systems Vital Signs Vitals Vital Signs Date Time Temp Pulse Resp B/P Pulse Ox O2 Delivery O2 Flow Rate FiO2 05/14/17 12:26 93 05/14/17 12:26 98 50 05/14/17 12:26 2.0 05/14/17 11:52 98.1 17 170/101 05/14/17 10:59 Nasal Cannula Exam HEENT exam; supple neck, positive JVD. No lymphadenopathy. Midline trachea. No thyromegaly. Pharynx is clear. Patient has fair dentition. Pupils are small bilaterally. Chest exam; diminished breath sounds bilaterally. No added sound. S1-S2 audible, no murmurs. Regular rhythm. There is a well-healed sternal scar. Abdomen exam; soft, nontender. Protuberant. No organomegaly. Bowel sounds audible. Extremity exam; no peripheral edema. Pulses 1+ bilaterally. No clubbing. 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 Results Result Diagram: 05/14/17 0715 05/14/17 0715 Results 24 hrs Laboratory Tests Test 05/14/17 07:15 05/14/17 12:24 White Blood Count 8.8 Red Blood Count 4.96 Hemoglobin 13.7 L Hematocrit 44.2 Mean Corpuscular Volume 89.1 Mean Corpuscular Hemoglobin 27.6 L Mean Corpuscular Hemoglobin Concent 31.0 L Red Cell Distribution Width 14.2 Platelet Count 233 # Mean Platelet Volume 11.4 H Neutrophils % 76.7 Lymphocytes % 15.8 Monocytes % 5.0 Eosinophils % 1.4 Basophils % 0.8 Nucleated Red Blood Cells % 0.0 Neutrophils # 6.7 Lymphocytes # 1.4 Monocytes # 0.4 Eosinophils # 0.1 Basophils # 0.1 Nucleated Red Blood Cells # 0.0 Sodium Level 142 Potassium Level 3.8 Chloride Level 104 Carbon Dioxide Level 30 Anion Gap 12 Blood Urea Nitrogen 36 H Creatinine 2.99 H Glucose Level 175 Calcium Level 8.6 Troponin I 0.149 *H Bedside Glucose 157 Medications Medications Current Medications Ondansetron HCl (Zofran Inj) 4 mg Q6H PRN IV NAUSEA AND/OR VOMITING; Start at 10:30 Acetaminophen (Tylenol Tab) 650 mg Q6H PRN PO PAIN LEVEL 1-3 OR FEVER; Start at 10:30 Acetaminophen/ Hydrocodone Bitart ([place] (5/325)) 1 tab Q6H PRN PO PAIN LEVEL 4 -6; Start 05/14/17 at 10:30 Morphine Sulfate (morphine) 2 mg Q4H PRN IV PAIN LEVEL 7-10; Start 05/14/17 at 10:30 Heparin Sodium (Porcine) (Heparin (5000 Units/0.5 ml)) 5,000 unit Q8 SC ; Start 05/14/17 at 14:00 Clopidogrel Bisulfate (plaVIX) 75 mg DAILY PO ; Start 05/15/17 at 09:00 Isosorbide Dinitrate (Isordil) 20 mg TID PO ; Start 05/14/17 at 13:00 Diagnostic Test (Pha) (Accu-Chek) 1 ea 02 XX ; Start 05/15/17 at 02:00 Insulin Glargine (Lantus) 33 unit DAILY@08 SC ; Start 05/15/17 at 08:00 Miscellaneous Information 1 ea NOTE XX ; Start 05/14/17 at 10:30 Glucose (Glutose) 15 gm Q15M PRN PO DECREASED GLUCOSE; Start 05/14/17 at 10:30 Glucose (Glutose) 22.5 gm Q15M PRN PO DECREASED GLUCOSE; Start 05/14/17 at 10: 30 Dextrose (D50w Syringe) 25 ml Q15M PRN IV DECREASED GLUCOSE; Start 05/14/17 at 10:30 Dextrose (D50w Syringe) 50 ml Q15M PRN IV DECREASED GLUCOSE; Start 05/14/17 at 10:30 Glucagon (Glucagen) 1 mg Q15M PRN IM DECREASED GLUCOSE; Start 05/14/17 at 10:30 Glucose (Glutose) 15 gm Q15M PRN BUCCAL DECREASED GLUCOSE; Start 05/14/17 at 10 :30 Furosemide (Lasix) 20 mg BID IV ; Start 05/14/17 at 21:00 Carvedilol (Coreg) 25 mg BID PO Last administered on 05/14/17t 12:25; Admin Dose 25 MG; Start 05/14/17 at 12:30 MARIE JEFFREY May 14, 2017 12:39
[2017-05-14 12:42] LABS: Allen Test ACCEPTAB; Arterial Base Excess 4.5 mmol/L (-3.0-3); Arterial COHb 2.6 % (0.0-3.0); Arterial Fraction of Oxyhgb 74.1 % (93.0-99.0); Arterial HCO3 35.2 mmol/L (22.0-26.0); Arterial MetHb 0.2 % (0.0-1.5); MODE NASAL CANNULA
[2017-05-14] MEDS ORDERED: hydrALAzine 20 MG INJ ONE (12:56)
[2017-05-14] MEDS ORDERED: ISOSORBIDE DINITRATE 10 MG TAB PO SCH (13:00)
[2017-05-14] MEDS: ISOSORBIDE DINITRATE 20 MG TAB PO SCH ×2 (13:00→20:03)
[2017-05-14] MEDS ORDERED: hydrALAzine 20 MG INJ IV ONE (13:00)
[2017-05-14] MEDS: ALBUTEROL/IPRATROPIUM (NEB) 3 ML AMP HHN SCH ×2 (14:00→20:11)
[2017-05-14] MEDS: HEPARIN 5,000 UNIT/0.5 ML VIAL SC SCH ×2 (14:20→21:33)
[2017-05-14 16:22] LABS: Allen Test ACCEPTAB; Arterial Base Excess 0.4 mmol/L (-3.0-3); Arterial COHb 1.9 % (0.0-3.0); Arterial Fraction of Oxyhgb 95.4 % (93.0-99.0); Arterial HCO3 29.9 mmol/L (22.0-26.0); Arterial MetHb 0.3 % (0.0-1.5); Arterial Total Hemglobin 14.6 g/dl (12.0-18.0); Blood Gas PS 13; MODE BIPAP
--- NOTE | 2017-05-14 16:47 | RADRPT ---
PROCEDURE: CT Chest without contrast. CLINICAL INDICATION: Shortness of breath. Congestive heart failure. TECHNIQUE: Helical axial sections were obtained through the chest without intravenous contrast enh ancement. Coronal and sagittal reformatted images were obtained from the axial source images. Total exam DLP is 720.87 mGy-cm. CTDIvol is 16.75 mGy. One or more of the following dose reduction beth hniques were used: Automated exposure control, adjustment of the mA and/or kV according to patient s ize, use of iterative reconstruction technique. COMPARISON: Chest radiograph done earlier the same day. FINDINGS: There is atelectasis at the lung bases posteriorly with right worse than left. The lungs are otherwi se clear with no other airspace or interstitial disease. There is no pulmonary nodule or mass lesion. There is no mediastinal or hilar lymphadenopathy or mass. There is no axillary, supraclavicular, or internal mammary lymphadenopathy. The thoracic aorta is not dilated. There is calcification in the aorta consistent with atheroscleros is. The heart is enlarged. There is coronary artery calcification. There are sternal wires and mediastin al clips from previous CABG. A right coronary artery stent is noted. There are small bilateral pleural effusions with right larger than left. There is no pericardial eff usion. Images through the upper abdomen demonstrate normal visualized portions of the liver, spleen, and ad renals. There are mild degenerative changes of the spine. There is no fracture or lytic lesion. IMPRESSION: 1. Atelectasis at the lung bases posteriorly with right worse than left. 2. Atherosclerosis. 3. Cardiomegaly. 4. Coronary artery calcification. 5. Previous CABG. Right coronary artery stent. 6. Small bilateral pleural effusions with right larger than left. 7. Mild degenerative changes of the spine. RPTAT: QQ .Quang Arguelles MD, MD Date Time Electronically viewed and signed by .Quang Arguelles MD, on 05/14/2017 16:46 .R/
[2017-05-14 16:53] LABS: CK-MB 3.2 ng/ml (0.0-2.4); TROPONIN-I 0.138 ng/ml (0.00-0.12)
[2017-05-14] MEDS ORDERED: PROPOFOL 100 ML IV SCH (17:00)
--- NOTE | 2017-05-14 17:51 | RADRPT ---
PROCEDURE: US bilateral lower extremity veins. CLINICAL INDICATION: Bilateral leg pain and swelling. TECHNIQUE: Multiple longitudinal and transverse images of the bilateral lower extremity veins were obtained with crews scale and color Doppler imaging. The common femoral vein, femoral vein, and popl iteal vein were evaluated. 2D grayscale measurements with compression sonography, color Doppler, and pulsed Doppler with augmentation. COMPARISON: No prior studies are available for comparison. FINDINGS: The bilateral common femoral, femoral and popliteal veins are normally compressible throughout. Col or flow demonstrates normal filling of the vessels. Normal waveforms are visualized and there is no rmal response to augmentation. IMPRESSION: 1. No evidence of deep vein thrombosis involving either lower extremity. RPTAT: QQ .Quang Arguelles MD, MD Date Time Electronically viewed and signed by .Quang Arguelles MD, on 05/14/2017 17:51 .R/
[2017-05-14] MEDS: Insulin NOVOLOG SS MILD Algorithm (NPO/TPN/ENTERAL FEEDS) SC SCH ×2 (19:20→21:00)
--- NOTE | 2017-05-14 19:47 | CONS ---
Date/Time of Note Date/Time of Note DATE: 05/14/17 TIME: 19:37 Assessment/Plan Assessment/Plan Additional Assessment/Plan Respiratory failure on BiPAP Acute decompensated systolic congestive heart failure Cardiomyopathy with ejection fraction 40% COPD exacerbation Acute on chronic kidney disease Active tobacco use Nonsustained ventricular tachycardia Obstructive sleep apnea Poor compliance Tobacco use -Patient status post CT chest with no evidence of significant volume overload. He does have peripheral edema, would give 1 dose of IV Lasix now. He is currently on BiPAP and has been intubated in the past secondary to his respiratory distress. Troponins are minimally elevated and are trending down, this is likely secondary to his respiratory failure. Continue antiplatelet therapy. At the current time, patient unable to take p.o., would order as needed antihypertensive. Consultation Date/Type/Reason Admit Date/Time Type of Consultation: cv Reason for Consultation Shortness of breath Hx of Present Illness This is a 51-year-old male known to me from previous admissions with history of cardiomyopathy, respiratory failure, COPD who presents with progressive worsening shortness of breath. Patient unable to give full history at the current time and history obtained from the medical chart and staff. Shortness of breath began in the middle the night as well as progressive lower extremity edema. Today, patient symptoms worsened and was placed on BiPAP and transferred to the ICU. Patient states his shortness of breath has improved since on BiPAP in the ICU. He denies any chest pain. Eyes: no complaints ENT: no complaints Respiratory: cough, pleuritic pain, shortness of breath Cardiovascular: chest pain, edema, orthopenea Gastrointestinal: no complaints Genitourinary: no complaints Musculoskeletal: bone/joint pain, neck pain, swelling Skin: skin lesions Neurologic: no complaints Lymphatic: no complaints Psychological: no complaints Immunologic: no complaints Past Medical History Medical History: congestive heart failure, coronary artery disease, diabetes, hypertension, renal disease Past Surgical History Past Surgical Hx: coronary bypass surgery Family History Significant Family History: no pertinent family hx Social History Alcohol Use: none Smoking Status: Former smoker Drug Use: none Exam/Review of Systems Vital Signs Vitals Vital Signs Date Time Temp Pulse Resp B/P Pulse Ox O2 Delivery O2 Flow Rate FiO2 05/14/17 19:15 92 19 151/90 BIPAP 05/14/17 19:00 99 05/14/17 17:50 50 05/14/17 17:15 97.6 05/14/17 12:26 2.0 Exam On BiPAP, following commands intermittently, dyspneic Constitutional: obese Head: normocephalic ENMT: other (On BiPAP) Respiratory: other (Coarse breath sounds bilaterally, no wheezing) Cardiovascular: other (S1-S2 heard), regular rate and rhythm Gastrointestinal: bowel sounds, non-tender, other (No guarding), soft Extremities: edema Results Result Diagram: 05/14/17 0715 05/14/17 0715 Results 24 hrs Laboratory Tests Test 05/14/17 07:15 05/14/17 10:15 05/14/17 12:24 05/14/17 16:00 White Blood Count 8.8 Red Blood Count 4.96 Hemoglobin 13.7 L Hematocrit 44.2 Mean Corpuscular Volume 89.1 Mean Corpuscular Hemoglobin 27.6 L Mean Corpuscular Hemoglobin Concent 31.0 L Red Cell Distribution Width 14.2 Platelet Count 233 # Mean Platelet Volume 11.4 H Neutrophils % 76.7 Lymphocytes % 15.8 Monocytes % 5.0 Eosinophils % 1.4 Basophils % 0.8 Nucleated Red Blood Cells % 0.0 Neutrophils # 6.7 Lymphocytes # 1.4 Monocytes # 0.4 Eosinophils # 0.1 Basophils # 0.1 Nucleated Red Blood Cells # 0.0 Sodium Level 142 Potassium Level 3.8 Chloride Level 104 Carbon Dioxide Level 30 Anion Gap 12 Blood Urea Nitrogen 36 H Creatinine 2.99 H Glucose Level 175 Hemoglobin A1c 8.0 H Calcium Level 8.6 Troponin I 0.149 *H Thyroid Stimulating Hormone (TSH) 1.960 Free Thyroxine 1.16 Blood Gas Specimen Source Blood arterial Blood arterial Arterial Blood Date Drawn 05/14/2017 11:56:27 AM 05/14/2017 4:15:20 PM Arterial Blood pH (Temp corrected) 7.239 *L 7.236 *L Arterial Blood pCO2 (Temp correct) 84.2 *H 72.1 H Arterial Blood pO2 (Temp corrected) 44.3 *L 114.4 H Arterial Blood HCO3 35.2 H 29.9 H Arterial Blood Base Excess 4.5 H 0.4 Arterial Blood Oxygen Saturation 76.2 L 97.5 Luis Armando Test ACCEPTAB ACCEPTAB Arterial Blood Gas Puncture Site Right Radial Right Radial Arterial Blood Carboxyhemoglobin 2.6 1.9 Arterial Blood Methemoglobin 0.2 0.3 Oxyhemoglobin Percent 74.1 L 95.4 Total Hemoglobin 15.0 14.6 Blood Gas Temperature 37.0 37.0 Blood Gas Modality NASAL CANNULA BIPAP FiO2 20.0 50.0 Blood Gas Critical Value Read Back JEMIMA GILL MD Blood Gas Notified Whom MAYRA SANDHU RT Blood Gas Notified Time 05/14/2017 12:07:19 PM 05/14/2017 4:22:48 PM Bedside Glucose 157 Blood Gas A-a O2 Differential 161.0 H Blood Gas Respiration Rate 24.0 Blood Gas Actual Respiration Rate 27 Blood Gas Inspiratory Time 1.00 Blood Gas Low PEEP Setting 5.0 Blood Gas Inspiratory Pressure 18.0 Blood Gas Pressure Support 13 Test 05/14/17 16:03 05/14/17 17:41 05/14/17 19:28 Creatine Kinase 61 Creatine Kinase Index 5.2 Creatinine Kinase MB (Mass) 3.20 H Troponin I 0.138 *H Bedside Glucose 143 134 Medications Medications Current Medications Ondansetron HCl (Zofran Inj) 4 mg Q6H PRN IV NAUSEA AND/OR VOMITING; Start at 10:30 Acetaminophen (Tylenol Tab) 650 mg Q6H PRN PO PAIN LEVEL 1-3 OR FEVER; Start at 10:30 Acetaminophen/ Hydrocodone Bitart ([place] (5/325)) 1 tab Q6H PRN PO PAIN LEVEL 4 -6; Start 05/14/17 at 10:30 Morphine Sulfate (morphine) 2 mg Q4H PRN IV PAIN LEVEL 7-10; Start 05/14/17 at 10:30 Heparin Sodium (Porcine) (Heparin (5000 Units/0.5 ml)) 5,000 unit Q8 SC Last administered on 05/14/17t 14:20; Admin Dose 5,000 UNIT; Start 05/14/17 at 14:00 Clopidogrel Bisulfate (plaVIX) 75 mg DAILY PO ; Start 05/15/17 at 09:00 Diagnostic Test (Pha) (Accu-Chek) 1 ea 02 XX ; Start 05/15/17 at 02:00 Insulin Glargine (Lantus) 33 unit DAILY@08 SC ; Start 05/15/17 at 08:00 Miscellaneous Information 1 ea NOTE XX ; Start 05/14/17 at 10:30 Glucose (Glutose) 15 gm Q15M PRN PO DECREASED GLUCOSE; Start 05/14/17 at 10:30 Glucose (Glutose) 22.5 gm Q15M PRN PO DECREASED GLUCOSE; Start 05/14/17 at 10: 30 Dextrose (D50w Syringe) 25 ml Q15M PRN IV DECREASED GLUCOSE; Start 05/14/17 at 10:30 Dextrose (D50w Syringe) 50 ml Q15M PRN IV DECREASED GLUCOSE; Start 05/14/17 at 10:30 Glucagon (Glucagen) 1 mg Q15M PRN IM DECREASED GLUCOSE; Start 05/14/17 at 10:30 Glucose (Glutose) 15 gm Q15M PRN BUCCAL DECREASED GLUCOSE; Start 05/14/17 at 10 :30 Furosemide (Lasix) 20 mg BID IV ; Start 05/14/17 at 21:00 Carvedilol (Coreg) 25 mg BID PO Last administered on 05/14/17t 12:25; Admin Dose 25 MG; Start 05/14/17 at 12:30 Isosorbide Dinitrate (Isordil) 20 mg TID PO ; Start 05/14/17 at 13:00 Insulin Aspart (Novolog Insulin Pen) (Adult SC Insulin - Mild Algorithm)... Q4 SC ; Start 05/14/17 at 17:00 Furosemide (Lasix) 40 mg ONCE ONCE IV ; Start 05/14/17 at 20:00; Stop 05/14/17 at 20:01 Procedures Procedures ECG done today demonstrates sinus rhythm at 98 bpm, QRS 160 ms with incomplete left bundle branch block, inferior and lateral T-wave inversions Ronald Grullon DO May 14, 2017 19:46
[2017-05-14 19:53] LABS: CALCIUM 8.5 mg/dl (8.4-10.2); CREATININE 2.95 mg/dl (0.61-1.24); POTASSIUM 3.9 mmol/L (3.5-5.1)
[2017-05-14] MEDS ORDERED: NITROGLYCERIN 2% 1 GM OINT PKT TD ONE (20:00)
[2017-05-14] MEDS ORDERED: hydrALAzine 20 MG INJ IV PRN (20:00)
[2017-05-14] MEDS: FUROSEMIDE 20 MG INJ IV SCH (20:03)
[2017-05-14 20:07] LABS: CK-MB 2.71 ng/ml (0.0-2.4); TROPONIN-I 0.141 ng/ml (0.00-0.12)
[2017-05-15] VITALS (50 sets, daily range): BP systolic 89–135; BP diastolic 51–90; PULSE 56–96; RESP 16–27
[2017-05-15] MEDS: Insulin NOVOLOG SS MILD Algorithm (NPO/TPN/ENTERAL FEEDS) SC SCH ×6 (01:00→20:24)
[2017-05-15] MEDS: ACCU-CHEK XX SCH (01:05)
[2017-05-15] MEDS: ALBUTEROL/IPRATROPIUM (NEB) 3 ML AMP HHN SCH ×4 (01:28→19:54)
[2017-05-15] MEDS: HEPARIN 5,000 UNIT/0.5 ML VIAL SC SCH ×3 (05:30→21:40)
[2017-05-15 05:40] LABS: BASOPHIL # 0.1 10^3/ul (0.0-0.1); BASOPHILS % 0.9 % (0.0-2.0); EOSINOPHILS # 0.1 10^3/ul (0.0-0.5); EOSINOPHILS % 1.6 % (0.0-7.0); HEMATOCRIT 40.4 % (42.0-52.0); HEMOGLOBIN 12.4 g/dl (14.0-18.0); LYMPHOCYTES # 1.5 10^3/ul (0.8-2.9); MEAN CORPUSCULAR HEMOGLOBIN 27.7 pg (29.0-33.0); MEAN CORPUSCULAR HGB CONC 30.7 g/dl (32.0-37.0); MEAN CORPUSCULAR VOLUME 90.2 fl (82.0-101.0); MEAN PLATELET VOLUME 10.9 fl (7.4-10.4); MONOCYTE # 0.4 10^3/ul (0.3-0.9); MONOCYTES % 5.7 % (0.0-11.0); NEUTROPHIL # 5.5 10^3/ul (1.6-7.5); NEUTROPHILS % 71.4 % (39.0-77.0); PLATELET COUNT 207 10^3/UL (140-415); RED BLOOD COUNT 4.48 10^6/ul (4.70-6.10); RED CELL DISTRIBUTION WIDTH 14.4 % (11.5-14.5); WHITE BLOOD COUNT 7.7 10^3/ul (4.8-10.8)
[2017-05-15 06:18] LABS: ALBUMIN 2.7 g/dl (3.3-4.9); ALBUMIN/GLOBULIN RATIO 1.12; BILIRUBIN,INDIRECT 0.3 mg/dl (0-1.1); BILIRUBIN,TOTAL 0.3 mg/dl (0.2-1.3); CALCIUM 8.4 mg/dl (8.4-10.2); CREATININE 2.83 mg/dl (0.61-1.24); POTASSIUM 4.1 mmol/L (3.5-5.1); TOTAL PROTEIN 5.1 g/dl (6.1-8.1)
[2017-05-15 06:28] LABS: TROPONIN-I 0.158 ng/ml (0.00-0.12)
[2017-05-15 06:30] LABS: MAGNESIUM 2.1 mg/dl (1.7-2.5); PHOSPHORUS 4.4 mg/dl (2.5-4.9)
[2017-05-15] MEDS ORDERED: ASPIRIN 81 MG TAB PO SCH (09:00)
[2017-05-15] MEDS: CLOPIDOGREL 75 MG TAB PO SCH (09:16)
[2017-05-15] MEDS: ISOSORBIDE DINITRATE 20 MG TAB PO SCH ×3 (09:16→21:37)
[2017-05-15] MEDS: FUROSEMIDE 20 MG INJ IV SCH (09:16)
[2017-05-15] MEDS: INSULIN GLARGINE [LANtus] 3 ML PEN SC SCH (09:19)
--- NOTE | 2017-05-15 09:19 | PN ---
Date/Time of Note Date/Time of Note DATE: 05/15/17 TIME: 09:18 Assessment/Plan VTE Prophylaxis VTE Prophylaxis Intervention: heparin Lines/Catheters IV [facility] Type [facility]from [facility] Urinary Cath still in place: No Assessment/Plan Chief Complaint/Hosp Course 1. Chest pain. Elevated troponins. The patient has prior history of CAD. Elevated troponins most probably secondary to a type II event. Patient will be continued on Plavix. Cardiology following. 2. Acute on chronic CHF exacerbation with systolic dysfunction. The patient will be diuresed adequately while watching the patient's renal function. 3. Acute on chronic respiratory failure. Hypoxic and hypercapnic. Continue NIPPV. Continue inhaled bronchodilators. Being followed by Pulmonology. 4. Cardiomyopathy with ejection fraction of 40% as per 2D echocardiogram done in February 2017. Patient will be continued on beta-blockers. RADHA inhibitors or ARB's will be avoided because of underlying worsening renal function. 5. Chronic kidney disease. The patient being followed by nephrology. Nephrotoxic drugs will be used with caution. 6. Diabetes mellitus. The patient will be continued on sliding scale insulin. Hemoglobin A1c 8.0. 7. Essential hypertension. The patient will be continued on antihypertensives. 8. Fluids, electrolytes, and nutrition. NPO until alert enough to take oral feeds. 9. DVT prophylaxis. Subcutaneous heparin. 10. Plan. Continue NIPPV. Continue careful diuresis. Case discussed with Dr. Steinberg. Critical care time: 35 minutes. Problems: Subjective 24 Hr Interval Summary Free Text/Dictation The patient remains on BiPAP. He was moved to ICU on 05/14/2017 for close monitoring. Exam/Review of Systems Vital Signs Vitals Vital Signs Date Time Temp Pulse Resp B/P Pulse Ox O2 Delivery O2 Flow Rate FiO2 05/15/17 07:46 84 135/78 98 BIPAP 05/15/17 07:44 50 05/15/17 07:43 99.6 05/15/17 04:00 24 05/14/17 12:26 2.0 Intake and Output 05/14/17 05/14/17 05/15/17 15:00 23:00 07:00 Intake Total 0 ml 500 ml Output Total 1020 ml 650 ml Balance -1020 ml -150 ml Exam General: Adequately build 51 year-old male lying in bed in mild respiratory distress. HEENT: Normocephalic, atraumatic. Eyes: Anicteric sclerae, conjunctivae clear. ENT: Nasal septum midline, oral mucosa moist. Neck supple, no JVD noticed. Respiratory: Bilaterally diminished. Remains on BiPAP. Use of accessory muscles of respiration. Cardiovascular: S1, S2 heard. No murmurs or gallops. Abdomen: Soft, nontender, and nondistended. Bowel sounds positive in all 4 quadrants. Genitourinary: Deferred. Extremities: No cyanosis. Bilateral lower extremity 1+ pitting edema. Neurologic: Cranial nerves II through XII grossly intact. The patient is somnolent. Wakes up to call and answers questions. Skin: Bilateral lower extremity venous stasis changes. Results Result Diagram: 05/15/17 0505 05/15/17 0505 Results 24 hrs Laboratory Tests Test 05/14/17 10:15 05/14/17 12:24 05/14/17 16:00 05/14/17 16:03 Blood Gas Specimen Source Blood arterial Blood arterial Arterial Blood Date Drawn 05/14/2017 11:56:27 AM 05/14/2017 4:15:20 PM Arterial Blood pH (Temp corrected) 7.239 *L 7.236 *L Arterial Blood pCO2 (Temp correct) 84.2 *H 72.1 H Arterial Blood pO2 (Temp corrected) 44.3 *L 114.4 H Arterial Blood HCO3 35.2 H 29.9 H Arterial Blood Base Excess 4.5 H 0.4 Arterial Blood Oxygen Saturation 76.2 L 97.5 Luis Armando Test ACCEPTAB ACCEPTAB Arterial Blood Gas Puncture Site Right Radial Right Radial Arterial Blood Carboxyhemoglobin 2.6 1.9 Arterial Blood Methemoglobin 0.2 0.3 Oxyhemoglobin Percent 74.1 L 95.4 Total Hemoglobin 15.0 14.6 Blood Gas Temperature 37.0 37.0 Blood Gas Modality NASAL CANNULA BIPAP FiO2 20.0 50.0 Blood Gas Critical Value Read Back JEMIMA GILL MD Blood Gas Notified Whom BM PHOEBE RT Blood Gas Notified Time 05/14/2017 12:07:19 PM 05/14/2017 4:22:48 PM Bedside Glucose 157 Blood Gas A-a O2 Differential 161.0 H Blood Gas Respiration Rate 24.0 Blood Gas Actual Respiration Rate 27 Blood Gas Inspiratory Time 1.00 Blood Gas Low PEEP Setting 5.0 Blood Gas Inspiratory Pressure 18.0 Blood Gas Pressure Support 13 Creatine Kinase 61 Creatine Kinase Index 5.2 Creatinine Kinase MB (Mass) 3.20 H Troponin I 0.138 *H Test 05/14/17 17:41 05/14/17 19:20 05/14/17 19:28 05/14/17 21:23 Bedside Glucose 143 134 131 Sodium Level 143 Potassium Level 3.9 Chloride Level 103 Carbon Dioxide Level 33 H Anion Gap 11 Blood Urea Nitrogen 33 H Creatinine 2.95 H Glucose Level 134 # Calcium Level 8.5 Creatine Kinase 62 Creatine Kinase Index 4.4 Creatinine Kinase MB (Mass) 2.71 H Troponin I 0.141 *H Test 05/15/17 01:09 05/15/17 05:05 05/15/17 05:06 05/15/17 05:19 Bedside Glucose 128 133 White Blood Count 7.7 Red Blood Count 4.48 L Hemoglobin 12.4 L Hematocrit 40.4 L Mean Corpuscular Volume 90.2 Mean Corpuscular Hemoglobin 27.7 L Mean Corpuscular Hemoglobin Concent 30.7 L Red Cell Distribution Width 14.4 Platelet Count 207 Mean Platelet Volume 10.9 H Neutrophils % 71.4 Lymphocytes % 20.0 Monocytes % 5.7 Eosinophils % 1.6 Basophils % 0.9 Nucleated Red Blood Cells % 0.0 Neutrophils # 5.5 Lymphocytes # 1.5 Monocytes # 0.4 Eosinophils # 0.1 Basophils # 0.1 Nucleated Red Blood Cells # 0.0 Sodium Level 143 Potassium Level 4.1 Chloride Level 104 Carbon Dioxide Level 32 H Anion Gap 11 Blood Urea Nitrogen 35 H Creatinine 2.83 H Glucose Level 123 Calcium Level 8.4 Phosphorus Level 4.4 Magnesium Level 2.1 Total Bilirubin 0.3 Direct Bilirubin 0.00 Indirect Bilirubin 0.3 Aspartate Amino Transf (AST/SGOT) 11 L Alanine Aminotransferase (ALT/SGPT) 26 Alkaline Phosphatase 52 Troponin I 0.158 *H Total Protein 5.1 L Albumin 2.7 L Globulin 2.40 Albumin/Globulin Ratio 1.12 Uric Acid 12.8 H Test 05/15/17 08:14 Bedside Glucose 129 Medications Medications Current Medications Ondansetron HCl (Zofran Inj) 4 mg Q6H PRN IV NAUSEA AND/OR VOMITING; Start at 10:30 Acetaminophen (Tylenol Tab) 650 mg Q6H PRN PO PAIN LEVEL 1-3 OR FEVER; Start at 10:30 Acetaminophen/ Hydrocodone Bitart ([place] (5/325)) 1 tab Q6H PRN PO PAIN LEVEL 4 -6; Start 05/14/17 at 10:30 Morphine Sulfate (morphine) 2 mg Q4H PRN IV PAIN LEVEL 7-10; Start 05/14/17 at 10:30 Heparin Sodium (Porcine) (Heparin (5000 Units/0.5 ml)) 5,000 unit Q8 SC Last administered on 05/15/17 05:30; Admin Dose 5,000 UNIT; Start 05/14/17 at 14:00 Clopidogrel Bisulfate (plaVIX) 75 mg DAILY PO ; Start 05/15/17 at 09:00 Diagnostic Test (Pha) (Accu-Chek) 1 ea 02 XX ; Start 05/15/17 at 02:00 Insulin Glargine (Lantus) 33 unit DAILY@08 SC ; Start 05/15/17 at 08:00 Miscellaneous Information 1 ea NOTE XX ; Start 05/14/17 at 10:30 Glucose (Glutose) 15 gm Q15M PRN PO DECREASED GLUCOSE; Start 05/14/17 at 10:30 Glucose (Glutose) 22.5 gm Q15M PRN PO DECREASED GLUCOSE; Start 05/14/17 at 10: 30 Dextrose (D50w Syringe) 25 ml Q15M PRN IV DECREASED GLUCOSE; Start 05/14/17 at 10:30 Dextrose (D50w Syringe) 50 ml Q15M PRN IV DECREASED GLUCOSE; Start 05/14/17 at 10:30 Glucagon (Glucagen) 1 mg Q15M PRN IM DECREASED GLUCOSE; Start 05/14/17 at 10:30 Glucose (Glutose) 15 gm Q15M PRN BUCCAL DECREASED GLUCOSE; Start 05/14/17 at 10 :30 Furosemide (Lasix) 20 mg BID IV ; Start 05/14/17 at 21:00 Carvedilol (Coreg) 25 mg BID PO Last administered on 05/14/17t 12:25; Admin Dose 25 MG; Start 05/14/17 at 12:30 Isosorbide Dinitrate (Isordil) 20 mg TID PO ; Start 05/14/17 at 13:00 Insulin Aspart (Novolog Insulin Pen) (Adult SC Insulin - Mild Algorithm)... Q4 SC ; Start 05/14/17 at 17:00 Hydralazine HCl (Apresoline) 10 mg Q4H PRN IV SBP more than 150; Start at 20:00 HANNAH ONOFRE NP May 15, 2017 09:19
[2017-05-15] MEDS ORDERED: FUROSEMIDE 20 MG INJ IV ONE (10:00)
--- NOTE | 2017-05-15 10:01 | CONS ---
Date/Time of Note Date/Time of Note DATE: 05/15/17 TIME: 09:58 Assessment/Plan Assessment/Plan Additional Assessment/Plan Respiratory failure on BiPAP Acute decompensated systolic congestive heart failure Cardiomyopathy with ejection fraction 40% COPD exacerbation Acute on chronic kidney disease Active tobacco use Nonsustained ventricular tachycardia Obstructive sleep apnea Poor compliance Tobacco use -Respiratory status clinically improving. Patient currently on 20 mg of IV Lasix twice daily, would consider increasing dosing if okay by nephrology colleagues. I will order an extra dose this morning. Patient currently taking p.o. medications. I would add hydralazine for afterload reduction given cardiomyopathy. Continue antiplatelet therapy and statin therapy if no contraindication Consultation Date/Type/Reason Admit Date/Time May 14, 2017 at 09:05 Initial Consult Date 05/14/17 Type of Consultation: cv Referring Provider: HANNAH ONOFRE NP 24 HR Interval Summary Free Text/Dictation Patient seen and examined. Shortness of breath has improved compared to yesterday. Denies chest pain, nausea. Still on BiPAP Exam/Review of Systems Vital Signs Vitals Vital Signs Date Time Temp Pulse Resp B/P Pulse Ox O2 Delivery O2 Flow Rate FiO2 05/15/17 09:30 88 99 50 05/15/17 09:00 133/73 05/15/17 09:00 BIPAP 05/15/17 07:43 99.6 05/15/17 04:00 24 05/14/17 12:26 2.0 Intake and Output 05/14/17 05/14/17 05/15/17 15:00 23:00 07:00 Intake Total 0 ml 500 ml Output Total 1020 ml 650 ml Balance -1020 ml -150 ml Exam Following commands, still unable to speak in complete sentences because of dyspnea, on BiPAP Constitutional: alert, obese, oriented Head: normocephalic Respiratory: other (Coarse breath sounds bilaterally, no wheezing) Cardiovascular: other (S1-S2 heard), regular rate and rhythm Gastrointestinal: bowel sounds, non-tender, soft Extremities: edema Results Result Diagram: 05/15/17 0505 05/15/17 0505 Results 24 hrs Laboratory Tests Test 05/14/17 10:15 05/14/17 12:24 05/14/17 16:00 05/14/17 16:03 Blood Gas Specimen Source Blood arterial Blood arterial Arterial Blood Date Drawn 05/14/2017 11:56:27 AM 05/14/2017 4:15:20 PM Arterial Blood pH (Temp corrected) 7.239 *L 7.236 *L Arterial Blood pCO2 (Temp correct) 84.2 *H 72.1 H Arterial Blood pO2 (Temp corrected) 44.3 *L 114.4 H Arterial Blood HCO3 35.2 H 29.9 H Arterial Blood Base Excess 4.5 H 0.4 Arterial Blood Oxygen Saturation 76.2 L 97.5 Luis Armando Test ACCEPTAB ACCEPTAB Arterial Blood Gas Puncture Site Right Radial Right Radial Arterial Blood Carboxyhemoglobin 2.6 1.9 Arterial Blood Methemoglobin 0.2 0.3 Oxyhemoglobin Percent 74.1 L 95.4 Total Hemoglobin 15.0 14.6 Blood Gas Temperature 37.0 37.0 Blood Gas Modality NASAL CANNULA BIPAP FiO2 20.0 50.0 Blood Gas Critical Value Read Back JEMIMA GILL MD Blood Gas Notified Whom BM WMJADA RT Blood Gas Notified Time 05/14/2017 12:07:19 PM 05/14/2017 4:22:48 PM Bedside Glucose 157 Blood Gas A-a O2 Differential 161.0 H Blood Gas Respiration Rate 24.0 Blood Gas Actual Respiration Rate 27 Blood Gas Inspiratory Time 1.00 Blood Gas Low PEEP Setting 5.0 Blood Gas Inspiratory Pressure 18.0 Blood Gas Pressure Support 13 Creatine Kinase 61 Creatine Kinase Index 5.2 Creatinine Kinase MB (Mass) 3.20 H Troponin I 0.138 *H Test 05/14/17 17:41 05/14/17 19:20 05/14/17 19:28 05/14/17 21:23 Bedside Glucose 143 134 131 Sodium Level 143 Potassium Level 3.9 Chloride Level 103 Carbon Dioxide Level 33 H Anion Gap 11 Blood Urea Nitrogen 33 H Creatinine 2.95 H Glucose Level 134 # Calcium Level 8.5 Creatine Kinase 62 Creatine Kinase Index 4.4 Creatinine Kinase MB (Mass) 2.71 H Troponin I 0.141 *H Test 05/15/17 01:09 05/15/17 05:05 05/15/17 05:06 05/15/17 05:19 Bedside Glucose 128 133 White Blood Count 7.7 Red Blood Count 4.48 L Hemoglobin 12.4 L Hematocrit 40.4 L Mean Corpuscular Volume 90.2 Mean Corpuscular Hemoglobin 27.7 L Mean Corpuscular Hemoglobin Concent 30.7 L Red Cell Distribution Width 14.4 Platelet Count 207 Mean Platelet Volume 10.9 H Neutrophils % 71.4 Lymphocytes % 20.0 Monocytes % 5.7 Eosinophils % 1.6 Basophils % 0.9 Nucleated Red Blood Cells % 0.0 Neutrophils # 5.5 Lymphocytes # 1.5 Monocytes # 0.4 Eosinophils # 0.1 Basophils # 0.1 Nucleated Red Blood Cells # 0.0 Sodium Level 143 Potassium Level 4.1 Chloride Level 104 Carbon Dioxide Level 32 H Anion Gap 11 Blood Urea Nitrogen 35 H Creatinine 2.83 H Glucose Level 123 Calcium Level 8.4 Phosphorus Level 4.4 Magnesium Level 2.1 Total Bilirubin 0.3 Direct Bilirubin 0.00 Indirect Bilirubin 0.3 Aspartate Amino Transf (AST/SGOT) 11 L Alanine Aminotransferase (ALT/SGPT) 26 Alkaline Phosphatase 52 Troponin I 0.158 *H Total Protein 5.1 L Albumin 2.7 L Globulin 2.40 Albumin/Globulin Ratio 1.12 Uric Acid 12.8 H Test 05/15/17 08:14 Bedside Glucose 129 Medications Medications Current Medications Ondansetron HCl (Zofran Inj) 4 mg Q6H PRN IV NAUSEA AND/OR VOMITING; Start at 10:30 Acetaminophen (Tylenol Tab) 650 mg Q6H PRN PO PAIN LEVEL 1-3 OR FEVER; Start at 10:30 Acetaminophen/ Hydrocodone Bitart ([place] (5/325)) 1 tab Q6H PRN PO PAIN LEVEL 4 -6; Start 05/14/17 at 10:30 Morphine Sulfate (morphine) 2 mg Q4H PRN IV PAIN LEVEL 7-10; Start 05/14/17 at 10:30 Heparin Sodium (Porcine) (Heparin (5000 Units/0.5 ml)) 5,000 unit Q8 SC Last administered on 05/15/17 05:30; Admin Dose 5,000 UNIT; Start 05/14/17 at 14:00 Clopidogrel Bisulfate (plaVIX) 75 mg DAILY PO Last administered on 05/15/17 09 :16; Admin Dose 75 MG; Start 05/15/17 at 09:00 Diagnostic Test (Pha) (Accu-Chek) 1 ea 02 XX ; Start 05/15/17 at 02:00 Insulin Glargine (Lantus) 33 unit DAILY@08 SC Last administered on 05/15/17 09 :19; Admin Dose 33 UNIT; Start 05/15/17 at 08:00 Miscellaneous Information 1 ea NOTE XX ; Start 05/14/17 at 10:30 Glucose (Glutose) 15 gm Q15M PRN PO DECREASED GLUCOSE; Start 05/14/17 at 10:30 Glucose (Glutose) 22.5 gm Q15M PRN PO DECREASED GLUCOSE; Start 05/14/17 at 10: 30 Dextrose (D50w Syringe) 25 ml Q15M PRN IV DECREASED GLUCOSE; Start 05/14/17 at 10:30 Dextrose (D50w Syringe) 50 ml Q15M PRN IV DECREASED GLUCOSE; Start 05/14/17 at 10:30 Glucagon (Glucagen) 1 mg Q15M PRN IM DECREASED GLUCOSE; Start 05/14/17 at 10:30 Glucose (Glutose) 15 gm Q15M PRN BUCCAL DECREASED GLUCOSE; Start 05/14/17 at 10 :30 Furosemide (Lasix) 20 mg BID IV Last administered on 05/15/17 09:16; Admin Dose 20 MG; Start 05/14/17 at 21:00 Carvedilol (Coreg) 25 mg BID PO Last administered on 05/15/17 09:16; Admin Dose 25 MG; Start 05/14/17 at 12:30 Isosorbide Dinitrate (Isordil) 20 mg TID PO Last administered on 05/15/17 09: 16; Admin Dose 20 MG; Start 05/14/17 at 13:00 Insulin Aspart (Novolog Insulin Pen) (Adult SC Insulin - Mild Algorithm)... Q4 SC ; Start 05/14/17 at 17:00 Hydralazine HCl (Apresoline) 10 mg Q4H PRN IV SBP more than 150; Start at 20:00 Ronald Grullon DO May 15, 2017 10:01
[2017-05-15 11:04] LABS: AADO2 Arterial 220.3 mmHg (7.0-24.0); Allen Test ACCEPTAB; Arterial Base Excess 7.4 mmol/L (-3.0-3); Arterial COHb 0.7 % (0.0-3.0); Arterial HCO3 34.8 mmol/L (22.0-26.0); Arterial MetHb 0.3 % (0.0-1.5); Arterial Total Hemglobin 13.3 g/dl (12.0-18.0); Blood Gas IEPAP 18/5; Blood Gas PS 13; MODE MASK - BIPAP
[2017-05-15] MEDS ORDERED: ALBUMIN HUMAN 25% 50 ML IV ONE (11:30)
[2017-05-15] MEDS ORDERED: FUROSEMIDE 40 MG INJ IV ONE (11:30)
[2017-05-15] MEDS: FUROSEMIDE 40 MG INJ IV SCH ×2 (12:00→17:10)
--- NOTE | 2017-05-15 12:04 | CONS ---
Date/Time of Note Date/Time of Note DATE: 05/15/17 TIME: 12:01 Assessment/Plan Assessment/Plan Additional Assessment/Plan Assessment and recommendations; 1. Patient admitted with decompensated CHF as well as hypercapnic respiratory failure clinically improved on BiPAP. 2. Chronic renal insufficiency. 3. Non-STEMI. 4. History of CABG. 5. History of diabetes and hypertension. 6. Likely severe sleep apnea, obesity/hypoventilation syndrome. Continue current treatment. Increase Lasix to 40 mg IV every 12 hours from 20 mg q. 12 hour dosing. Will obtain follow-up chest x-ray in 24 hours. Consultation Date/Type/Reason Admit Date/Time May 14, 2017 at 09:05 Initial Consult Date 05/14/17 Type of Consultation: Pulmonary/critical care Referring Provider: HANNAH ONOFRE NP 24 HR Interval Summary Free Text/Dictation Patient's condition has improved. He was transferred to ICU for medical floor because of hypercapnic respiratory failure. Currently doing well on BiPAP. Denies any chest pain, shortness of breath is improved. General exam; middle-aged male, obese, currently in no distress. Awake and alert. Exam/Review of Systems Vital Signs Vitals Vital Signs Date Time Temp Pulse Resp B/P Pulse Ox O2 Delivery O2 Flow Rate FiO2 05/15/17 11:20 60 94/55 100 BIPAP 05/15/17 11:19 99.6 05/15/17 09:30 50 05/15/17 04:00 24 05/14/17 12:26 2.0 Intake and Output 05/14/17 05/14/17 05/15/17 14:59 22:59 06:59 Intake Total 0 ml 500 ml Output Total 1020 ml 650 ml Balance -1020 ml -150 ml Exam HEENT exam; supple neck, JVD difficult to see because of short neck. No thyromegaly. No neck masses. Pupils are small bilaterally. No lymphadenopathy. Chest exam; diminished breath sounds bilaterally. S1-S2 audible, no murmurs. Regular rhythm. There is a well-healed sternal scar. Abdomen exam; soft, nontender. Protuberant. No organomegaly. Bowel sounds audible. Extremity exam; no peripheral edema. [employer] exam: No focal deficit. Results Result Diagram: 05/15/17 0505 05/15/17 0505 Results 24 hrs Laboratory Tests Test 05/14/17 12:24 05/14/17 16:00 05/14/17 16:03 05/14/17 17:41 Bedside Glucose 157 143 Blood Gas Specimen Source Blood arterial Arterial Blood Date Drawn 05/14/2017 4:15:20 PM Arterial Blood pH (Temp corrected) 7.236 *L Arterial Blood pCO2 (Temp correct) 72.1 H Arterial Blood pO2 (Temp corrected) 114.4 H Arterial Blood HCO3 29.9 H Arterial Blood Base Excess 0.4 Arterial Blood Oxygen Saturation 97.5 Luis Armando Test ACCEPTAB Arterial Blood Gas Puncture Site Right Radial Arterial Blood Carboxyhemoglobin 1.9 Arterial Blood Methemoglobin 0.3 Blood Gas A-a O2 Differential 161.0 H Oxyhemoglobin Percent 95.4 Total Hemoglobin 14.6 Blood Gas Temperature 37.0 Blood Gas Respiration Rate 24.0 Blood Gas Actual Respiration Rate 27 Blood Gas Modality BIPAP FiO2 50.0 Blood Gas Inspiratory Time 1.00 Blood Gas Low PEEP Setting 5.0 Blood Gas Inspiratory Pressure 18.0 Blood Gas Pressure Support 13 Blood Gas Critical Value Read Back JAIRO HOU Blood Gas Notified Whom PHOEBE ARCINIEGA Blood Gas Notified Time 05/14/2017 4:22:48 PM Creatine Kinase 61 Creatine Kinase Index 5.2 Creatinine Kinase MB (Mass) 3.20 H Troponin I 0.138 *H Test 05/14/17 19:20 05/14/17 19:28 05/14/17 21:23 05/15/17 01:09 Sodium Level 143 Potassium Level 3.9 Chloride Level 103 Carbon Dioxide Level 33 H Anion Gap 11 Blood Urea Nitrogen 33 H Creatinine 2.95 H Glucose Level 134 # Calcium Level 8.5 Creatine Kinase 62 Creatine Kinase Index 4.4 Creatinine Kinase MB (Mass) 2.71 H Troponin I 0.141 *H Bedside Glucose 134 131 128 Test 05/15/17 05:05 05/15/17 05:06 05/15/17 05:19 05/15/17 08:14 White Blood Count 7.7 Red Blood Count 4.48 L Hemoglobin 12.4 L Hematocrit 40.4 L Mean Corpuscular Volume 90.2 Mean Corpuscular Hemoglobin 27.7 L Mean Corpuscular Hemoglobin Concent 30.7 L Red Cell Distribution Width 14.4 Platelet Count 207 Mean Platelet Volume 10.9 H Neutrophils % 71.4 Lymphocytes % 20.0 Monocytes % 5.7 Eosinophils % 1.6 Basophils % 0.9 Nucleated Red Blood Cells % 0.0 Neutrophils # 5.5 Lymphocytes # 1.5 Monocytes # 0.4 Eosinophils # 0.1 Basophils # 0.1 Nucleated Red Blood Cells # 0.0 Sodium Level 143 Potassium Level 4.1 Chloride Level 104 Carbon Dioxide Level 32 H Anion Gap 11 Blood Urea Nitrogen 35 H Creatinine 2.83 H Glucose Level 123 Calcium Level 8.4 Phosphorus Level 4.4 Magnesium Level 2.1 Total Bilirubin 0.3 Direct Bilirubin 0.00 Indirect Bilirubin 0.3 Aspartate Amino Transf (AST/SGOT) 11 L Alanine Aminotransferase (ALT/SGPT) 26 Alkaline Phosphatase 52 Troponin I 0.158 *H Total Protein 5.1 L Albumin 2.7 L Globulin 2.40 Albumin/Globulin Ratio 1.12 Uric Acid 12.8 H Bedside Glucose 133 129 Test 05/15/17 10:26 05/15/17 11:39 Blood Gas Specimen Source Blood arterial Arterial Blood Date Drawn 05/15/2017 10:52:54 AM Arterial Blood pH (Temp corrected) 7.364 Arterial Blood pCO2 (Temp correct) 62.5 H Arterial Blood pO2 (Temp corrected) 65.9 L Arterial Blood HCO3 34.8 H Arterial Blood Base Excess 7.4 H Arterial Blood Oxygen Saturation 92.9 L Luis Armando Test ACCEPTAB Arterial Blood Gas Puncture Site Right Radial Arterial Blood Carboxyhemoglobin 0.7 Arterial Blood Methemoglobin 0.3 Blood Gas A-a O2 Differential 220.3 H Oxyhemoglobin Percent 92.0 L Total Hemoglobin 13.3 Blood Gas Temperature 37.0 Blood Gas Respiration Rate 24.0 Blood Gas Actual Respiration Rate 28 Blood Gas Modality MASK - BIPAP FiO2 50.0 Blood Gas Pressure Support 13 Blood Gas IPAP/EPAP Ratio 18/5 Blood Gas Notified Whom TM Blood Gas Notified Time 05/15/2017 11:04:39 AM Bedside Glucose 106 Medications Medications Current Medications Ondansetron HCl (Zofran Inj) 4 mg Q6H PRN IV NAUSEA AND/OR VOMITING; Start at 10:30 Acetaminophen (Tylenol Tab) 650 mg Q6H PRN PO PAIN LEVEL 1-3 OR FEVER; Start at 10:30 Acetaminophen/ Hydrocodone Bitart ([place] (5/325)) 1 tab Q6H PRN PO PAIN LEVEL 4 -6; Start 05/14/17 at 10:30 Morphine Sulfate (morphine) 2 mg Q4H PRN IV PAIN LEVEL 7-10; Start 05/14/17 at 10:30 Heparin Sodium (Porcine) (Heparin (5000 Units/0.5 ml)) 5,000 unit Q8 SC Last administered on 05/15/17 05:30; Admin Dose 5,000 UNIT; Start 05/14/17 at 14:00 Clopidogrel Bisulfate (plaVIX) 75 mg DAILY PO Last administered on 05/15/17 09 :16; Admin Dose 75 MG; Start 05/15/17 at 09:00 Diagnostic Test (Pha) (Accu-Chek) 1 ea 02 XX ; Start 05/15/17 at 02:00 Insulin Glargine (Lantus) 33 unit DAILY@08 SC Last administered on 05/15/17 09 :19; Admin Dose 33 UNIT; Start 05/15/17 at 08:00 Miscellaneous Information 1 ea NOTE XX ; Start 05/14/17 at 10:30 Glucose (Glutose) 15 gm Q15M PRN PO DECREASED GLUCOSE; Start 05/14/17 at 10:30 Glucose (Glutose) 22.5 gm Q15M PRN PO DECREASED GLUCOSE; Start 05/14/17 at 10: 30 Dextrose (D50w Syringe) 25 ml Q15M PRN IV DECREASED GLUCOSE; Start 05/14/17 at 10:30 Dextrose (D50w Syringe) 50 ml Q15M PRN IV DECREASED GLUCOSE; Start 05/14/17 at 10:30 Glucagon (Glucagen) 1 mg Q15M PRN IM DECREASED GLUCOSE; Start 05/14/17 at 10:30 Glucose (Glutose) 15 gm Q15M PRN BUCCAL DECREASED GLUCOSE; Start 05/14/17 at 10 :30 Furosemide (Lasix) 20 mg BID IV Last administered on 05/15/17 09:16; Admin Dose 20 MG; Start 05/14/17 at 21:00 Carvedilol (Coreg) 25 mg BID PO Last administered on 05/15/17 09:16; Admin Dose 25 MG; Start 05/14/17 at 12:30 Isosorbide Dinitrate (Isordil) 20 mg TID PO Last administered on 05/15/17 09: 16; Admin Dose 20 MG; Start 05/14/17 at 13:00 Insulin Aspart (Novolog Insulin Pen) (Adult SC Insulin - Mild Algorithm)... Q4 SC ; Start 05/14/17 at 17:00 Hydralazine HCl (Apresoline) 10 mg Q4H PRN IV SBP more than 150; Start at 20:00 Atorvastatin Calcium (Lipitor) 40 mg HS PO ; Start 05/15/17 at 21:00 Hydralazine HCl 10 mg 10 mg Q8 PO ; Start 05/15/17 at 14:00 Albumin Human (Albumin Human 25%) 50 ml @ 100 mls/hr ONCE ONCE IV Last administered on 05/15/17t 11:27; Admin Dose 100 MLS/HR; Start 05/15/17 at 11:30 ; Stop 05/15/17 at 11:59 MARIE JEFFREY May 15, 2017 12:04
--- NOTE | 2017-05-15 14:26 | CONS ---
Date/Time of Note Date/Time of Note DATE: 05/15/17 TIME: 14:18 Assessment/Plan Assessment/Plan Chief Complaint/Hosp Course 51-year-old male with extensive past medical history including CAD status post CABG, obstructive sleep apnea on nocturnal CPAP, chronic kidney disease, diabetes mellitus, pulmonary hypertension, essential hypertension, cardiomyopathy, and morbid obesity who came to the emergency room with chief complaint of chest pain and dyspnea that started from the night of 05/13/2017. she gets admitted for SOB. she is noted to have CHF exacerbation, on ABG she is noted to have PCO2 72, HCo3 29- she is also noted to have elevated BUN and Cr and renal has been consulte for it, pt was seen early in AM in ED. chest x-ray showed cardiomegaly with central pulmonary vascular congestion and interstitial prominence in both lungs with blunting of the bilateral costophrenic angles Problems: Additional Assessment/Plan 1. Acute kidney injury on CKD III due to cardiorenal syndrome 2. Acute on chronic CHF exacerbation 3. Acute hypercapnic and hypoxic resp failure, acute on chronic 4. H/O CKD III 5. DONALD 6. H/o CAD S/p CABG 7. H/o COPD 8. H/o CHF 9. Hyperuricemia with uric acid 12.8 Plan : pt will be given IV albumin one dose followed by lasix 40mg IV x 1 extra dose, continue lasix 20mg IV BID on BIPAP, pulmonary managing BIPAP. Cr 2.83, Urin acid 12.8- start allopurinol 100mg PO BID Strict I/O renally dose all antibiotics will follow up Consultation Date/Type/Reason Admit Date/Time May 14, 2017 at 09:05 Initial Consult Date 05/14/17 Type of Consultation: NEPHROLOGY Referring Provider: HANNAH ONOFRE NP 24 HR Interval Summary Free Text/Dictation pt transferred to ICU, currently on BIPAP , not adequate urine output Exam/Review of Systems Vital Signs Vitals Vital Signs Date Time Temp Pulse Resp B/P Pulse Ox O2 Delivery O2 Flow Rate FiO2 05/15/17 13:15 58 17 97 05/15/17 13:00 102/69 BIPAP 05/15/17 11:19 99.6 05/15/17 11:02 50 05/14/17 12:26 2.0 Intake and Output 05/14/17 05/14/17 05/15/17 15:00 23:00 07:00 Intake Total 0 ml 500 ml Output Total 1020 ml 650 ml Balance -1020 ml -150 ml Exam Constitutional: moderate distress on BIPAP Respiratory: congested cough, crackles/rales, diminished breath sounds Cardiovascular: nl pulses, regular rate and rhythm Gastrointestinal: non-tender, soft Musculoskeletal: nl extremities to inspection Extremities: normal pulses Neurological: tired, sleepy, fatigued, Skin: nl turgor Results Result Diagram: 05/15/17 0505 05/15/17 0505 Results 24 hrs Laboratory Tests Test 05/14/17 16:00 05/14/17 16:03 05/14/17 17:41 05/14/17 19:20 Blood Gas Specimen Source Blood arterial Arterial Blood Date Drawn 05/14/2017 4:15:20 PM Arterial Blood pH (Temp corrected) 7.236 *L Arterial Blood pCO2 (Temp correct) 72.1 H Arterial Blood pO2 (Temp corrected) 114.4 H Arterial Blood HCO3 29.9 H Arterial Blood Base Excess 0.4 Arterial Blood Oxygen Saturation 97.5 Luis Armando Test ACCEPTAB Arterial Blood Gas Puncture Site Right Radial Arterial Blood Carboxyhemoglobin 1.9 Arterial Blood Methemoglobin 0.3 Blood Gas A-a O2 Differential 161.0 H Oxyhemoglobin Percent 95.4 Total Hemoglobin 14.6 Blood Gas Temperature 37.0 Blood Gas Respiration Rate 24.0 Blood Gas Actual Respiration Rate 27 Blood Gas Modality BIPAP FiO2 50.0 Blood Gas Inspiratory Time 1.00 Blood Gas Low PEEP Setting 5.0 Blood Gas Inspiratory Pressure 18.0 Blood Gas Pressure Support 13 Blood Gas Critical Value Read Back JAIRO HOU Blood Gas Notified Whom PHOEBE ARCINIEGA Blood Gas Notified Time 05/14/2017 4:22:48 PM Creatine Kinase 61 62 Creatine Kinase Index 5.2 4.4 Creatinine Kinase MB (Mass) 3.20 H 2.71 H Troponin I 0.138 *H 0.141 *H Bedside Glucose 143 Sodium Level 143 Potassium Level 3.9 Chloride Level 103 Carbon Dioxide Level 33 H Anion Gap 11 Blood Urea Nitrogen 33 H Creatinine 2.95 H Glucose Level 134 # Calcium Level 8.5 Test 05/14/17 19:28 05/14/17 21:23 05/15/17 01:09 05/15/17 05:05 Bedside Glucose 134 131 128 White Blood Count 7.7 Red Blood Count 4.48 L Hemoglobin 12.4 L Hematocrit 40.4 L Mean Corpuscular Volume 90.2 Mean Corpuscular Hemoglobin 27.7 L Mean Corpuscular Hemoglobin Concent 30.7 L Red Cell Distribution Width 14.4 Platelet Count 207 Mean Platelet Volume 10.9 H Neutrophils % 71.4 Lymphocytes % 20.0 Monocytes % 5.7 Eosinophils % 1.6 Basophils % 0.9 Nucleated Red Blood Cells % 0.0 Neutrophils # 5.5 Lymphocytes # 1.5 Monocytes # 0.4 Eosinophils # 0.1 Basophils # 0.1 Nucleated Red Blood Cells # 0.0 Sodium Level 143 Potassium Level 4.1 Chloride Level 104 Carbon Dioxide Level 32 H Anion Gap 11 Blood Urea Nitrogen 35 H Creatinine 2.83 H Glucose Level 123 Calcium Level 8.4 Phosphorus Level 4.4 Magnesium Level 2.1 Total Bilirubin 0.3 Direct Bilirubin 0.00 Indirect Bilirubin 0.3 Aspartate Amino Transf (AST/SGOT) 11 L Alanine Aminotransferase (ALT/SGPT) 26 Alkaline Phosphatase 52 Troponin I 0.158 *H Total Protein 5.1 L Albumin 2.7 L Globulin 2.40 Albumin/Globulin Ratio 1.12 Test 05/15/17 05:06 05/15/17 05:19 05/15/17 08:14 05/15/17 10:26 Uric Acid 12.8 H Bedside Glucose 133 129 Blood Gas Specimen Source Blood arterial Arterial Blood Date Drawn 05/15/2017 10:52:54 AM Arterial Blood pH (Temp corrected) 7.364 Arterial Blood pCO2 (Temp correct) 62.5 H Arterial Blood pO2 (Temp corrected) 65.9 L Arterial Blood HCO3 34.8 H Arterial Blood Base Excess 7.4 H Arterial Blood Oxygen Saturation 92.9 L Luis Armando Test ACCEPTAB Arterial Blood Gas Puncture Site Right Radial Arterial Blood Carboxyhemoglobin 0.7 Arterial Blood Methemoglobin 0.3 Blood Gas A-a O2 Differential 220.3 H Oxyhemoglobin Percent 92.0 L Total Hemoglobin 13.3 Blood Gas Temperature 37.0 Blood Gas Respiration Rate 24.0 Blood Gas Actual Respiration Rate 28 Blood Gas Modality MASK - BIPAP FiO2 50.0 Blood Gas Pressure Support 13 Blood Gas IPAP/EPAP Ratio 18/5 Blood Gas Notified Whom TM Blood Gas Notified Time 05/15/2017 11:04:39 AM Test 05/15/17 11:39 Bedside Glucose 106 Medications Medications Current Medications Ondansetron HCl (Zofran Inj) 4 mg Q6H PRN IV NAUSEA AND/OR VOMITING; Start at 10:30 Acetaminophen (Tylenol Tab) 650 mg Q6H PRN PO PAIN LEVEL 1-3 OR FEVER; Start at 10:30 Acetaminophen/ Hydrocodone Bitart ([place] (5/325)) 1 tab Q6H PRN PO PAIN LEVEL 4 -6; Start 05/14/17 at 10:30 Morphine Sulfate (morphine) 2 mg Q4H PRN IV PAIN LEVEL 7-10; Start 05/14/17 at 10:30 Heparin Sodium (Porcine) (Heparin (5000 Units/0.5 ml)) 5,000 unit Q8 SC Last administered on 05/15/17 05:30; Admin Dose 5,000 UNIT; Start 05/14/17 at 14:00 Clopidogrel Bisulfate (plaVIX) 75 mg DAILY PO Last administered on 05/15/17 09 :16; Admin Dose 75 MG; Start 05/15/17 at 09:00 Diagnostic Test (Pha) (Accu-Chek) 1 ea 02 XX ; Start 05/15/17 at 02:00 Insulin Glargine (Lantus) 33 unit DAILY@08 SC Last administered on 05/15/17 09 :19; Admin Dose 33 UNIT; Start 05/15/17 at 08:00 Miscellaneous Information 1 ea NOTE XX ; Start 05/14/17 at 10:30 Glucose (Glutose) 15 gm Q15M PRN PO DECREASED GLUCOSE; Start 05/14/17 at 10:30 Glucose (Glutose) 22.5 gm Q15M PRN PO DECREASED GLUCOSE; Start 05/14/17 at 10: 30 Dextrose (D50w Syringe) 25 ml Q15M PRN IV DECREASED GLUCOSE; Start 05/14/17 at 10:30 Dextrose (D50w Syringe) 50 ml Q15M PRN IV DECREASED GLUCOSE; Start 05/14/17 at 10:30 Glucagon (Glucagen) 1 mg Q15M PRN IM DECREASED GLUCOSE; Start 05/14/17 at 10:30 Glucose (Glutose) 15 gm Q15M PRN BUCCAL DECREASED GLUCOSE; Start 05/14/17 at 10 :30 Carvedilol (Coreg) 25 mg BID PO Last administered on 05/15/17 09:16; Admin Dose 25 MG; Start 05/14/17 at 12:30 Isosorbide Dinitrate (Isordil) 20 mg TID PO Last administered on 05/15/17 09: 16; Admin Dose 20 MG; Start 05/14/17 at 13:00 Insulin Aspart (Novolog Insulin Pen) (Adult SC Insulin - Mild Algorithm)... Q4 SC ; Start 05/14/17 at 17:00 Hydralazine HCl (Apresoline) 10 mg Q4H PRN IV SBP more than 150; Start at 20:00 Atorvastatin Calcium (Lipitor) 40 mg HS PO ; Start 05/15/17 at 21:00 Hydralazine HCl (Apresoline) 10 mg Q8 PO ; Start 05/15/17 at 14:00 ARELI FRANKLIN MD May 15, 2017 14:26
[2017-05-15] MEDS: ALLOPURINOL 100 MG TAB PO SCH ×2 (16:28→21:37)
[2017-05-15] MEDS: ATORVASTATIN 40 MG TAB PO SCH (21:37)
[2017-05-16] VITALS (21 sets, daily range): BP systolic 110–133; BP diastolic 65–99; PULSE 57–160; RESP 15–33
[2017-05-16 00:05] LABS: PROTEIN/CREAT RATIO 4.73 RATIO
[2017-05-16] MEDS: HYDROCODONE/APAP (5/325) TAB PO PRN (01:20)
[2017-05-16] MEDS: ALBUTEROL/IPRATROPIUM (NEB) 3 ML AMP HHN SCH ×4 (01:45→19:11)
[2017-05-16] MEDS: ACCU-CHEK XX SCH (02:00)
[2017-05-16 05:29] LABS: BASOPHIL # 0.1 10^3/ul (0.0-0.1); BASOPHILS % 1.1 % (0.0-2.0); EOSINOPHILS # 0.2 10^3/ul (0.0-0.5); EOSINOPHILS % 2.9 % (0.0-7.0); HEMATOCRIT 38.4 % (42.0-52.0); HEMOGLOBIN 11.8 g/dl (14.0-18.0); LYMPHOCYTES # 1.6 10^3/ul (0.8-2.9); LYMPHOCYTES % 21.8 % (15.0-51.0); MEAN CORPUSCULAR HEMOGLOBIN 27.6 pg (29.0-33.0); MEAN CORPUSCULAR HGB CONC 30.7 g/dl (32.0-37.0); MEAN CORPUSCULAR VOLUME 89.7 fl (82.0-101.0); MEAN PLATELET VOLUME 10.9 fl (7.4-10.4); MONOCYTE # 0.5 10^3/ul (0.3-0.9); MONOCYTES % 6.7 % (0.0-11.0); NEUTROPHIL # 5.1 10^3/ul (1.6-7.5); NEUTROPHILS % 67.4 % (39.0-77.0); PLATELET COUNT 205 10^3/UL (140-415); RED BLOOD COUNT 4.28 10^6/ul (4.70-6.10); RED CELL DISTRIBUTION WIDTH 14.4 % (11.5-14.5); WHITE BLOOD COUNT 7.5 10^3/ul (4.8-10.8)
[2017-05-16 05:54] LABS: MAGNESIUM 2.1 mg/dl (1.7-2.5); PHOSPHORUS 4.1 mg/dl (2.5-4.9)
[2017-05-16] MEDS: FUROSEMIDE 40 MG INJ IV SCH ×2 (06:00→17:37)
[2017-05-16] MEDS: HEPARIN 5,000 UNIT/0.5 ML VIAL SC SCH ×3 (06:08→22:18)
[2017-05-16 06:22] LABS: ALBUMIN 2.8 g/dl (3.3-4.9); ALBUMIN/GLOBULIN RATIO 1.03; BILIRUBIN,INDIRECT 0.2 mg/dl (0-1.1); BILIRUBIN,TOTAL 0.2 mg/dl (0.2-1.3); CALCIUM 8.3 mg/dl (8.4-10.2); CREATININE 3.18 mg/dl (0.61-1.24); POTASSIUM 3.6 mmol/L (3.5-5.1); TOTAL PROTEIN 5.5 g/dl (6.1-8.1)
[2017-05-16 07:37] LABS: AADO2 Arterial 72.2 mmHg (7.0-24.0); Allen Test ACCEPTAB; Arterial Base Excess 6.4 mmol/L (-3.0-3); Arterial COHb 0 % (0.0-3.0); Arterial HCO3 32.9 mmol/L (22.0-26.0); Arterial MetHb 0.3 % (0.0-1.5); Arterial Total Hemglobin 13.5 g/dl (12.0-18.0); MODE NASAL CANNULA
--- NOTE | 2017-05-16 07:45 | RADRPT ---
PROCEDURE: Chest 1 views. CLINICAL INDICATION: Shortness of breath. TECHNIQUE: AP views of the chest was obtained. COMPARISON: DR PATTERSON 05/14/2017 FINDINGS: The heart is large. Median sternotomy wires overlie the heart. Central pulmonary vascular congestion and interstitial prominence in both lungs is unchanged. Retrocardiac opacity that may reflect left lower lobe atelectasis or infiltrate combined with small pleural effusion. Scattered atelectasis is seen in the right lung. Osseous structures are intact. IMPRESSION: Cardiomegaly . Stable central pulmonary vascular congestion and mild interstitial prominence in both lungs. Interval development of retrocardiac opacity that may reflect left lower lobe atelectasis or infiltr ate combined with small pleural effusion. Scattered atelectasis in the right lung. RPTAT: AA .Bernardo Jacques MD, Date Time Electronically viewed and signed by .Bernardo Jacques MD, on 05/16/2017 07:44 .P/
[2017-05-16] MEDS: INSULIN ASPART [NOVOLOG] 3 ML PEN SC SCH ×4 (08:19→21:32)
[2017-05-16] MEDS: CLOPIDOGREL 75 MG TAB PO SCH (08:29)
[2017-05-16] MEDS: ALLOPURINOL 100 MG TAB PO SCH ×2 (08:29→20:58)
[2017-05-16] MEDS: ISOSORBIDE DINITRATE 20 MG TAB PO SCH ×3 (08:29→20:58)
[2017-05-16] MEDS: INSULIN GLARGINE [LANtus] 3 ML PEN SC SCH (08:32)
--- NOTE | 2017-05-16 09:21 | PN ---
Date/Time of Note Date/Time of Note DATE: 05/16/17 TIME: : Assessment/Plan VTE Prophylaxis VTE Prophylaxis Intervention: heparin Lines/Catheters IV C[facility]ter Type (from [facility] Saline Lock Urinary Cath still in place: No Assessment/Plan Chief Complaint/Hosp Course 1. Chest pain. Elevated troponins. The patient has prior history of CAD. Elevated troponins most probably secondary to a type II event. Patient will be continued on Plavix. Cardiology following. 2. Acute on chronic CHF exacerbation with systolic dysfunction. The patient will be diuresed adequately while watching the patient's renal function. 3. Acute on chronic respiratory failure. Hypoxic and hypercapnic. Continue NIPPV. Continue inhaled bronchodilators. Being followed by Pulmonology. 4. Cardiomyopathy with ejection fraction of 40% as per 2D echocardiogram done in February 2017. Patient will be continued on beta-blockers. RADHA inhibitors or ARB's will be avoided because of underlying worsening renal function. 5. Chronic kidney disease. The patient being followed by nephrology. Nephrotoxic drugs will be used with caution. 6. Diabetes mellitus. The patient will be continued on sliding scale insulin. Hemoglobin A1c 8.0. 7. Essential hypertension. The patient will be continued on antihypertensives. 8. Fluids, electrolytes, and nutrition. Carbohydrate controlled, renal diet. 9. DVT prophylaxis. Subcutaneous heparin. 10. Plan. Continue NIPPV as indicated. Continue careful diuresis. Transfer the patient to Tele. Case discussed with Dr. Steinberg. Critical care time: 35 minutes. Problems: Subjective 24 Hr Interval Summary Free Text/Dictation The patient is very awake and alert today. Remains on low flow O2. Exam/Review of Systems Vital Signs Vitals Vital Signs Date Time Temp Pulse Resp B/P Pulse Ox O2 Delivery O2 Flow Rate FiO2 05/16/17 09:00 77 25 125/72 93 Nasal Cannula 3.0 05/16/17 08:00 98.2 05/16/17 03:10 50 Intake and Output 05/15/17 05/15/17 05/16/17 15:00 23:00 07:00 Intake Total 200 ml 150 ml Output Total 450 ml 950 ml 360 ml Balance -450 ml -750 ml -210 ml Exam General: Adequately build 51 year-old male lying in bed in no apparent distress. HEENT: Normocephalic, atraumatic. Eyes: Anicteric sclerae, conjunctivae clear. ENT: Nasal septum midline, oral mucosa moist. Neck supple, no JVD noticed. Respiratory: Bilaterally diminished. No use of accessory muscles of respiration. Abdomen: Soft, nontender, and nondistended. Bowel sounds positive in all 4 quadrants. Genitourinary: Deferred. Extremities: No cyanosis. Bilateral lower extremity 1+ pitting edema. Neurologic: Cranial nerves II through XII grossly intact. The patient is awake, alert, and oriented. Skin: Bilateral lower extremity venous stasis changes. Results Result Diagram: 05/16/17 0509 05/16/17 0509 Results 24 hrs Laboratory Tests Test 05/15/17 10:26 05/15/17 11:39 05/15/17 17:00 05/15/17 20:16 Blood Gas Specimen Source Blood arterial Arterial Blood Date Drawn 05/15/2017 10:52:54 AM Arterial Blood pH (Temp corrected) 7.364 Arterial Blood pCO2 (Temp correct) 62.5 H Arterial Blood pO2 (Temp corrected) 65.9 L Arterial Blood HCO3 34.8 H Arterial Blood Base Excess 7.4 H Arterial Blood Oxygen Saturation 92.9 L Luis Armando Test ACCEPTAB Arterial Blood Gas Puncture Site Right Radial Arterial Blood Carboxyhemoglobin 0.7 Arterial Blood Methemoglobin 0.3 Blood Gas A-a O2 Differential 220.3 H Oxyhemoglobin Percent 92.0 L Total Hemoglobin 13.3 Blood Gas Temperature 37.0 Blood Gas Respiration Rate 24.0 Blood Gas Actual Respiration Rate 28 Blood Gas Modality MASK - BIPAP FiO2 50.0 Blood Gas Pressure Support 13 Blood Gas IPAP/EPAP Ratio 18/5 Blood Gas Notified Whom TM Blood Gas Notified Time 05/15/2017 11:04:39 AM Bedside Glucose 106 111 143 Test 05/15/17 23:00 05/16/17 05:03 05/16/17 05:09 05/16/17 07:00 Urine Eosinophils % 0.0 Urine Random Creatinine 69.92 Urine Random Sodium 77 Urine Protein/Creatinine Ratio 4.73 Urine Total Protein 331.0 H B-Type Natriuretic Peptide 4420 H White Blood Count 7.5 Red Blood Count 4.28 L Hemoglobin 11.8 L Hematocrit 38.4 L Mean Corpuscular Volume 89.7 Mean Corpuscular Hemoglobin 27.6 L Mean Corpuscular Hemoglobin Concent 30.7 L Red Cell Distribution Width 14.4 Platelet Count 205 Mean Platelet Volume 10.9 H Neutrophils % 67.4 Lymphocytes % 21.8 Monocytes % 6.7 Eosinophils % 2.9 Basophils % 1.1 Nucleated Red Blood Cells % 0.0 Neutrophils # 5.1 Lymphocytes # 1.6 Monocytes # 0.5 Eosinophils # 0.2 Basophils # 0.1 Nucleated Red Blood Cells # 0.0 Sodium Level 140 Potassium Level 3.6 Chloride Level 103 Carbon Dioxide Level 33 H Anion Gap 8 Blood Urea Nitrogen 42 H Creatinine 3.18 H Glucose Level 121 Calcium Level 8.3 L Phosphorus Level 4.1 Magnesium Level 2.1 Total Bilirubin 0.2 Direct Bilirubin 0.00 Indirect Bilirubin 0.2 Aspartate Amino Transf (AST/SGOT) 12 L Alanine Aminotransferase (ALT/SGPT) 26 Alkaline Phosphatase 52 Troponin I 0.119 Total Protein 5.5 L Albumin 2.8 L Globulin 2.70 Albumin/Globulin Ratio 1.03 Blood Gas Specimen Source Blood arterial Arterial Blood Date Drawn 05/16/2017 7:06:41 AM Arterial Blood pH (Temp corrected) 7.391 Arterial Blood pCO2 (Temp correct) 55.5 H Arterial Blood pO2 (Temp corrected) 54.7 *L Arterial Blood HCO3 32.9 H Arterial Blood Base Excess 6.4 H Arterial Blood Oxygen Saturation 89.3 L Luis Armando Test ACCEPTAB Arterial Blood Gas Puncture Site Right Radial Arterial Blood Carboxyhemoglobin 0 Arterial Blood Methemoglobin 0.3 Blood Gas A-a O2 Differential 72.2 H Oxyhemoglobin Percent 89.0 L Total Hemoglobin 13.5 Blood Gas Temperature 37.0 Blood Gas Modality NASAL CANNULA FiO2 27.0 Blood Gas Critical Value Read Back NOEMI [facility] Blood Gas Notified Whom TM Blood Gas Notified Time 05/16/2017 7:37:27 AM Test 05/16/17 07:52 Bedside Glucose 117 Medications Medications Current Medications Ondansetron HCl (Zofran Inj) 4 mg Q6H PRN IV NAUSEA AND/OR VOMITING; Start at 10:30 Acetaminophen (Tylenol Tab) 650 mg Q6H PRN PO PAIN LEVEL 1-3 OR FEVER; Start at 10:30 Acetaminophen/ Hydrocodone Bitart ([place] (5/325)) 1 tab Q6H PRN PO PAIN LEVEL 4 -6 Last administered on 05/16/17t 01:20; Admin Dose 1 TAB; Start 05/14/17 at 10: 30 Morphine Sulfate (morphine) 2 mg Q4H PRN IV PAIN LEVEL 7-10; Start 05/14/17 at 10:30 Heparin Sodium (Porcine) (Heparin (5000 Units/0.5 ml)) 5,000 unit Q8 SC Last administered on 05/16/17 06:08; Admin Dose 5,000 UNIT; Start 05/14/17 at 14:00 Clopidogrel Bisulfate (plaVIX) 75 mg DAILY PO Last administered on 05/16/17 08 :29; Admin Dose 75 MG; Start 05/15/17 at 09:00 Diagnostic Test (Pha) (Accu-Chek) 1 ea 02 XX ; Start 05/15/17 at 02:00 Insulin Glargine (Lantus) 33 unit DAILY@08 SC Last administered on 05/16/17 08 :32; Admin Dose 33 UNIT; Start 05/15/17 at 08:00 Miscellaneous Information 1 ea NOTE XX ; Start 05/14/17 at 10:30 Glucose (Glutose) 15 gm Q15M PRN PO DECREASED GLUCOSE; Start 05/14/17 at 10:30 Glucose (Glutose) 22.5 gm Q15M PRN PO DECREASED GLUCOSE; Start 05/14/17 at 10: 30 Dextrose (D50w Syringe) 25 ml Q15M PRN IV DECREASED GLUCOSE; Start 05/14/17 at 10:30 Dextrose (D50w Syringe) 50 ml Q15M PRN IV DECREASED GLUCOSE; Start 05/14/17 at 10:30 Glucagon (Glucagen) 1 mg Q15M PRN IM DECREASED GLUCOSE; Start 05/14/17 at 10:30 Glucose (Glutose) 15 gm Q15M PRN BUCCAL DECREASED GLUCOSE; Start 05/14/17 at 10 :30 Carvedilol (Coreg) 25 mg BID PO Last administered on 05/16/17 08:30; Admin Dose 25 MG; Start 05/14/17 at 12:30 Isosorbide Dinitrate (Isordil) 20 mg TID PO Last administered on 05/16/17 08: 29; Admin Dose 20 MG; Start 05/14/17 at 13:00 Hydralazine HCl (Apresoline) 10 mg Q4H PRN IV SBP more than 150; Start at 20:00 Atorvastatin Calcium (Lipitor) 40 mg HS PO Last administered on 05/15/17 21:37 ; Admin Dose 40 MG; Start 05/15/17 at 21:00 Hydralazine HCl (Apresoline) 10 mg Q8 PO ; Start 05/15/17 at 14:00 Allopurinol (Zyloprim) 100 mg BID PO Last administered on 05/16/17 08:29; Admin Dose 100 MG; Start 05/15/17 at 14:30 HANNAH ONOFRE NP May 16, 2017 09:21
--- NOTE | 2017-05-16 09:24 | PN ---
Date/Time of Note Date/Time of Note DATE: 05/16/17 TIME: 09:21 Assessment/Plan VTE Prophylaxis VTE Prophylaxis Intervention: SCD's Lines/Catheters IV [facility] Type [facility]from [facility] Saline Lock Urinary Cath still in place: No Assessment/Plan Assessment/Plan Respiratory failure on BiPAP Acute decompensated systolic congestive heart failure Cardiomyopathy with ejection fraction 40% COPD exacerbation Acute on chronic kidney disease Active tobacco use Nonsustained ventricular tachycardia Obstructive sleep apnea Poor compliance Tobacco use -Respiratory status clinically improving. Patient currently on 20 mg of IV Lasix twice daily Patient currently taking p.o. medications. I would add hydralazine for afterload reduction given cardiomyopathy. Continue antiplatelet therapy and statin therapy if no contraindication - negative 3.5 liters over 3 days Exam/Review of Systems Vital Signs Vitals Vital Signs Date Time Temp Pulse Resp B/P Pulse Ox O2 Delivery O2 Flow Rate FiO2 05/16/17 09:00 77 25 125/72 93 Nasal Cannula 3.0 05/16/17 08:00 98.2 05/16/17 03:10 50 Intake and Output 05/15/17 05/15/17 05/16/17 15:00 23:00 07:00 Intake Total 200 ml 150 ml Output Total 450 ml 950 ml 360 ml Balance -450 ml -750 ml -210 ml Results Result Diagram: 05/16/17 0509 05/16/17 0509 Results 24 hrs Laboratory Tests Test 05/15/17 10:26 05/15/17 11:39 05/15/17 17:00 05/15/17 20:16 Blood Gas Specimen Source Blood arterial Arterial Blood Date Drawn 05/15/2017 10:52:54 AM Arterial Blood pH (Temp corrected) 7.364 Arterial Blood pCO2 (Temp correct) 62.5 H Arterial Blood pO2 (Temp corrected) 65.9 L Arterial Blood HCO3 34.8 H Arterial Blood Base Excess 7.4 H Arterial Blood Oxygen Saturation 92.9 L Luis Armando Test ACCEPTAB Arterial Blood Gas Puncture Site Right Radial Arterial Blood Carboxyhemoglobin 0.7 Arterial Blood Methemoglobin 0.3 Blood Gas A-a O2 Differential 220.3 H Oxyhemoglobin Percent 92.0 L Total Hemoglobin 13.3 Blood Gas Temperature 37.0 Blood Gas Respiration Rate 24.0 Blood Gas Actual Respiration Rate 28 Blood Gas Modality MASK - BIPAP FiO2 50.0 Blood Gas Pressure Support 13 Blood Gas IPAP/EPAP Ratio 18/ Blood Gas Notified Whom TM Blood Gas Notified Time 05/15/2017 11:04:39 AM Bedside Glucose 106 111 143 Test 05/15/17 23:00 05/16/17 05:03 05/16/17 05:09 05/16/17 07:00 Urine Eosinophils % 0.0 Urine Random Creatinine 69.92 Urine Random Sodium 77 Urine Protein/Creatinine Ratio 4.73 Urine Total Protein 331.0 H B-Type Natriuretic Peptide 4420 H White Blood Count 7.5 Red Blood Count 4.28 L Hemoglobin 11.8 L Hematocrit 38.4 L Mean Corpuscular Volume 89.7 Mean Corpuscular Hemoglobin 27.6 L Mean Corpuscular Hemoglobin Concent 30.7 L Red Cell Distribution Width 14.4 Platelet Count 205 Mean Platelet Volume 10.9 H Neutrophils % 67.4 Lymphocytes % 21.8 Monocytes % 6.7 Eosinophils % 2.9 Basophils % 1.1 Nucleated Red Blood Cells % 0.0 Neutrophils # 5.1 Lymphocytes # 1.6 Monocytes # 0.5 Eosinophils # 0.2 Basophils # 0.1 Nucleated Red Blood Cells # 0.0 Sodium Level 140 Potassium Level 3.6 Chloride Level 103 Carbon Dioxide Level 33 H Anion Gap 8 Blood Urea Nitrogen 42 H Creatinine 3.18 H Glucose Level 121 Calcium Level 8.3 L Phosphorus Level 4.1 Magnesium Level 2.1 Total Bilirubin 0.2 Direct Bilirubin 0.00 Indirect Bilirubin 0.2 Aspartate Amino Transf (AST/SGOT) 12 L Alanine Aminotransferase (ALT/SGPT) 26 Alkaline Phosphatase 52 Troponin I 0.119 Total Protein 5.5 L Albumin 2.8 L Globulin 2.70 Albumin/Globulin Ratio 1.03 Blood Gas Specimen Source Blood arterial Arterial Blood Date Drawn 05/16/2017 7:06:41 AM Arterial Blood pH (Temp corrected) 7.391 Arterial Blood pCO2 (Temp correct) 55.5 H Arterial Blood pO2 (Temp corrected) 54.7 *L Arterial Blood HCO3 32.9 H Arterial Blood Base Excess 6.4 H Arterial Blood Oxygen Saturation 89.3 L Luis Armando Test ACCEPTAB Arterial Blood Gas Puncture Site Right Radial Arterial Blood Carboxyhemoglobin 0 Arterial Blood Methemoglobin 0.3 Blood Gas A-a O2 Differential 72.2 H Oxyhemoglobin Percent 89.0 L Total Hemoglobin 13.5 Blood Gas Temperature 37.0 Blood Gas Modality NASAL CANNULA FiO2 27.0 Blood Gas Critical Value Read Back NOEMI HOU Blood Gas Notified Whom TM Blood Gas Notified Time 05/16/2017 7:37:27 AM Test 05/16/17 07:52 Bedside Glucose 117 Medications Medications Current Medications Ondansetron HCl (Zofran Inj) 4 mg Q6H PRN IV NAUSEA AND/OR VOMITING; Start at 10:30 Acetaminophen (Tylenol Tab) 650 mg Q6H PRN PO PAIN LEVEL 1-3 OR FEVER; Start at 10:30 Acetaminophen/ Hydrocodone Bitart ([place] (5/325)) 1 tab Q6H PRN PO PAIN LEVEL 4 -6 Last administered on 05/16/17 01:20; Admin Dose 1 TAB; Start 05/14/17 at 10: 30 Morphine Sulfate (morphine) 2 mg Q4H PRN IV PAIN LEVEL 7-10; Start 05/14/17 at 10:30 Heparin Sodium (Porcine) (Heparin (5000 Units/0.5 ml)) 5,000 unit Q8 SC Last administered on 05/16/17 06:08; Admin Dose 5,000 UNIT; Start 05/14/17 at 14:00 Clopidogrel Bisulfate (plaVIX) 75 mg DAILY PO Last administered on 05/16/17 08 :29; Admin Dose 75 MG; Start 05/15/17 at 09:00 Diagnostic Test (Pha) (Accu-Chek) 1 ea 02 XX ; Start 05/15/17 at 02:00 Insulin Glargine (Lantus) 33 unit DAILY@08 SC Last administered on 05/16/17 08 :32; Admin Dose 33 UNIT; Start 05/15/17 at 08:00 Miscellaneous Information 1 ea NOTE XX ; Start 05/14/17 at 10:30 Glucose (Glutose) 15 gm Q15M PRN PO DECREASED GLUCOSE; Start 05/14/17 at 10:30 Glucose (Glutose) 22.5 gm Q15M PRN PO DECREASED GLUCOSE; Start 05/14/17 at 10: 30 Dextrose (D50w Syringe) 25 ml Q15M PRN IV DECREASED GLUCOSE; Start 05/14/17 at 10:30 Dextrose (D50w Syringe) 50 ml Q15M PRN IV DECREASED GLUCOSE; Start 05/14/17 at 10:30 Glucagon (Glucagen) 1 mg Q15M PRN IM DECREASED GLUCOSE; Start 05/14/17 at 10:30 Glucose (Glutose) 15 gm Q15M PRN BUCCAL DECREASED GLUCOSE; Start 05/14/17 at 10 :30 Carvedilol (Coreg) 25 mg BID PO Last administered on 05/16/17 08:30; Admin Dose 25 MG; Start 05/14/17 at 12:30 Isosorbide Dinitrate (Isordil) 20 mg TID PO Last administered on 05/16/17 08: 29; Admin Dose 20 MG; Start 05/14/17 at 13:00 Hydralazine HCl (Apresoline) 10 mg Q4H PRN IV SBP more than 150; Start at 20:00 Atorvastatin Calcium (Lipitor) 40 mg HS PO Last administered on 05/15/17 21:37 ; Admin Dose 40 MG; Start 05/15/17 at 21:00 Hydralazine HCl (Apresoline) 10 mg Q8 PO ; Start 05/15/17 at 14:00 Allopurinol (Zyloprim) 100 mg BID PO Last administered on 05/16/17 08:29; Admin Dose 100 MG; Start 05/15/17 at 14:30 CARLOS BHATIA MD May 16, 2017 09:24
--- NOTE | 2017-05-16 11:18 | CONS ---
Date/Time of Note Date/Time of Note DATE: 05/16/17 TIME: 11:15 Consult Date/Type/Reason Admit Date/Time May 14, 2017 at 09:05 Initial Consult Date 05/14/17 Type of Consultation: Pulm Ordering Provider: HANNAH ONOFRE NEUROCRITICAL CARE PHYSICIAN Subjective Awake alert comfortable this morning. No respiratory distress. On nasal cannula oxygen. Objective Vital Signs Date Time Temp Pulse Resp B/P Pulse Ox O2 Delivery O2 Flow Rate FiO2 05/16/17 10:00 62 24 120/65 95 Nasal Cannula 3.0 05/16/17 08:00 98.2 05/16/17 03:10 50 Intake and Output 05/15/17 05/15/17 05/16/17 14:59 22:59 06:59 Intake Total 200 ml 150 ml Output Total 450 ml 950 ml 360 ml Balance -450 ml -750 ml -210 ml Exam HEENT: Moist mucous movements pupils equal reactive to light Cardiac exam S1-S2 2 systolic ejection murmur Respiratory: Diminished air entry bilaterally with rales Abdomen: Obese soft nontender no guarding rebound Extremities: No cyanosis clubbing 1+ edema Neurologically: No focal deficits Results/Medications Result Diagram: 05/16/17 0509 05/16/17 0509 Results 24 hrs Laboratory Tests Test 05/15/17 11:39 05/15/17 17:00 05/15/17 20:16 05/15/17 23:00 Bedside Glucose 106 111 143 Urine Eosinophils % 0.0 Urine Random Creatinine 69.92 Urine Random Sodium 77 Urine Protein/Creatinine Ratio 4.73 Urine Total Protein 331.0 H Test 05/16/17 05:03 05/16/17 05:09 05/16/17 07:00 05/16/17 07:52 B-Type Natriuretic Peptide 4420 H White Blood Count 7.5 Red Blood Count 4.28 L Hemoglobin 11.8 L Hematocrit 38.4 L Mean Corpuscular Volume 89.7 Mean Corpuscular Hemoglobin 27.6 L Mean Corpuscular Hemoglobin Concent 30.7 L Red Cell Distribution Width 14.4 Platelet Count 205 Mean Platelet Volume 10.9 H Neutrophils % 67.4 Lymphocytes % 21.8 Monocytes % 6.7 Eosinophils % 2.9 Basophils % 1.1 Nucleated Red Blood Cells % 0.0 Neutrophils # 5.1 Lymphocytes # 1.6 Monocytes # 0.5 Eosinophils # 0.2 Basophils # 0.1 Nucleated Red Blood Cells # 0.0 Sodium Level 140 Potassium Level 3.6 Chloride Level 103 Carbon Dioxide Level 33 H Anion Gap 8 Blood Urea Nitrogen 42 H Creatinine 3.18 H Glucose Level 121 Calcium Level 8.3 L Phosphorus Level 4.1 Magnesium Level 2.1 Total Bilirubin 0.2 Direct Bilirubin 0.00 Indirect Bilirubin 0.2 Aspartate Amino Transf (AST/SGOT) 12 L Alanine Aminotransferase (ALT/SGPT) 26 Alkaline Phosphatase 52 Troponin I 0.119 Total Protein 5.5 L Albumin 2.8 L Globulin 2.70 Albumin/Globulin Ratio 1.03 Blood Gas Specimen Source Blood arterial Arterial Blood Date Drawn 05/16/2017 7:06:41 AM Arterial Blood pH (Temp corrected) 7.391 Arterial Blood pCO2 (Temp correct) 55.5 H Arterial Blood pO2 (Temp corrected) 54.7 *L Arterial Blood HCO3 32.9 H Arterial Blood Base Excess 6.4 H Arterial Blood Oxygen Saturation 89.3 L Luis Armando Test ACCEPTAB Arterial Blood Gas Puncture Site Right Radial Arterial Blood Carboxyhemoglobin 0 Arterial Blood Methemoglobin 0.3 Blood Gas A-a O2 Differential 72.2 H Oxyhemoglobin Percent 89.0 L Total Hemoglobin 13.5 Blood Gas Temperature 37.0 Blood Gas Modality NASAL CANNULA FiO2 27.0 Blood Gas Critical Value Read Back NOEMI [facility] Blood Gas Notified Whom TM Blood Gas Notified Time 05/16/2017 7:37:27 AM Bedside Glucose 117 Medications Current Medications Ondansetron HCl (Zofran Inj) 4 mg Q6H PRN IV NAUSEA AND/OR VOMITING; Start at 10:30 Acetaminophen (Tylenol Tab) 650 mg Q6H PRN PO PAIN LEVEL 1-3 OR FEVER; Start at 10:30 Acetaminophen/ Hydrocodone Bitart ([place] (5/325)) 1 tab Q6H PRN PO PAIN LEVEL 4 -6 Last administered on 05/16/17 01:20; Admin Dose 1 TAB; Start 05/14/17 at 10: 30 Morphine Sulfate (morphine) 2 mg Q4H PRN IV PAIN LEVEL 7-10; Start 05/14/17 at 10:30 Heparin Sodium (Porcine) (Heparin (5000 Units/0.5 ml)) 5,000 unit Q8 SC Last administered on 05/16/17 06:08; Admin Dose 5,000 UNIT; Start 05/14/17 at 14:00 Clopidogrel Bisulfate (plaVIX) 75 mg DAILY PO Last administered on 05/16/17 08 :29; Admin Dose 75 MG; Start 05/15/17 at 09:00 Diagnostic Test (Pha) (Accu-Chek) 1 ea 02 XX ; Start 05/15/17 at 02:00 Insulin Glargine (Lantus) 33 unit DAILY@08 SC Last administered on 05/16/17 08 :32; Admin Dose 33 UNIT; Start 05/15/17 at 08:00 Miscellaneous Information 1 ea NOTE XX ; Start 05/14/17 at 10:30 Glucose (Glutose) 15 gm Q15M PRN PO DECREASED GLUCOSE; Start 05/14/17 at 10:30 Glucose (Glutose) 22.5 gm Q15M PRN PO DECREASED GLUCOSE; Start 05/14/17 at 10: 30 Dextrose (D50w Syringe) 25 ml Q15M PRN IV DECREASED GLUCOSE; Start 05/14/17 at 10:30 Dextrose (D50w Syringe) 50 ml Q15M PRN IV DECREASED GLUCOSE; Start 05/14/17 at 10:30 Glucagon (Glucagen) 1 mg Q15M PRN IM DECREASED GLUCOSE; Start 05/14/17 at 10:30 Glucose (Glutose) 15 gm Q15M PRN BUCCAL DECREASED GLUCOSE; Start 05/14/17 at 10 :30 Carvedilol (Coreg) 25 mg BID PO Last administered on 05/16/17 08:30; Admin Dose 25 MG; Start 05/14/17 at 12:30 Isosorbide Dinitrate (Isordil) 20 mg TID PO Last administered on 05/16/17 08: 29; Admin Dose 20 MG; Start 05/14/17 at 13:00 Hydralazine HCl (Apresoline) 10 mg Q4H PRN IV SBP more than 150; Start at 20:00 Atorvastatin Calcium (Lipitor) 40 mg HS PO Last administered on 05/15/17 21:37 ; Admin Dose 40 MG; Start 05/15/17 at 21:00 Hydralazine HCl (Apresoline) 10 mg Q8 PO ; Start 05/15/17 at 14:00 Allopurinol (Zyloprim) 100 mg BID PO Last administered on 05/16/17t 08:29; Admin Dose 100 MG; Start 05/15/17 at 14:30 Assessment/Plan Chief Complaint/Hosp Course Assessment 1. Status post acute hypoxemic and hypercapnic respiratory failure 2. Probable obesity hypoventilation syndrome 3. History of coronary artery bypass graft surgery 4. Status post acute on chronic congestive cardiac failure Plan 1. Continue supplemental O2 2. Continue diuretics as tolerated 3. Noninvasive positive pressure ventilation 4. Outpatient sleep study and PFTs 5. Encourage ambulation 6. Transfer to telemetry Problems: AMI GRIMES MD, [facility] May 16, 2017 11:18
--- NOTE | 2017-05-16 15:32 | CONS ---
Date/Time of Note Date/Time of Note DATE: 05/16/17 TIME: 15:30 Assessment/Plan Assessment/Plan Additional Assessment/Plan 1. Acute kidney injury on CKD III due to cardiorenal syndrome 2. Acute on chronic CHF exacerbation 3. Acute hypercapnic and hypoxic resp failure, acute on chronic- on BIPAP 4. H/O CKD III 5. DONALD 6. H/o CAD S/p CABG 7. H/o COPD 8. H/o CHF 9. Hyperuricemia with uric acid 12.8 Plan : on lasix 40mg IV BID on BIPAP, pulmonary managing BIPAP. Cr bumped to 3.1, Urin acid 12.8- start allopurinol 100mg PO BID Strict I/O renally dose all antibiotics will follow up Consultation Date/Type/Reason Admit Date/Time May 14, 2017 at 09:05 Initial Consult Date 05/14/17 Type of Consultation: NEPHROLOGY Reason for Consultation acute on chronic renal failure Referring Provider: HANNAH ONOFRE ALARM MECHANIC 24 HR Interval Summary Free Text/Dictation pt transferred to telemetry floor, Cr sliglty bumped, BP stable Exam/Review of Systems Vital Signs Vitals Vital Signs Date Time Temp Pulse Resp B/P Pulse Ox O2 Delivery O2 Flow Rate FiO2 05/16/17 15:11 98.2 65 16 133/78 97 05/16/17 14:41 Nasal Cannula 3.0 05/16/17 03:10 50 Intake and Output 05/15/17 05/15/17 05/16/17 15:00 23:00 07:00 Intake Total 200 ml 150 ml Output Total 450 ml 950 ml 360 ml Balance -450 ml -750 ml -210 ml Exam Constitutional: moderate distress on BIPAP Respiratory: congested cough, crackles/rales, diminished breath sounds Cardiovascular: nl pulses, regular rate and rhythm Gastrointestinal: non-tender, soft Musculoskeletal: nl extremities to inspection Extremities: normal pulses Neurological: tired, sleepy, fatigued, Skin: nl turgor Results Result Diagram: 05/16/17 0509 05/16/17 0509 Results 24 hrs Laboratory Tests Test 05/15/17 17:00 05/15/17 20:16 05/15/17 23:00 05/16/17 05:03 Bedside Glucose 111 143 Urine Eosinophils % 0.0 Urine Random Creatinine 69.92 Urine Random Sodium 77 Urine Protein/Creatinine Ratio 4.73 Urine Total Protein 331.0 H B-Type Natriuretic Peptide 4420 H Test 05/16/17 05:09 05/16/17 07:00 05/16/17 07:52 05/16/17 11:47 White Blood Count 7.5 Red Blood Count 4.28 L Hemoglobin 11.8 L Hematocrit 38.4 L Mean Corpuscular Volume 89.7 Mean Corpuscular Hemoglobin 27.6 L Mean Corpuscular Hemoglobin Concent 30.7 L Red Cell Distribution Width 14.4 Platelet Count 205 Mean Platelet Volume 10.9 H Neutrophils % 67.4 Lymphocytes % 21.8 Monocytes % 6.7 Eosinophils % 2.9 Basophils % 1.1 Nucleated Red Blood Cells % 0.0 Neutrophils # 5.1 Lymphocytes # 1.6 Monocytes # 0.5 Eosinophils # 0.2 Basophils # 0.1 Nucleated Red Blood Cells # 0.0 Sodium Level 140 Potassium Level 3.6 Chloride Level 103 Carbon Dioxide Level 33 H Anion Gap 8 Blood Urea Nitrogen 42 H Creatinine 3.18 H Glucose Level 121 Calcium Level 8.3 L Phosphorus Level 4.1 Magnesium Level 2.1 Total Bilirubin 0.2 Direct Bilirubin 0.00 Indirect Bilirubin 0.2 Aspartate Amino Transf (AST/SGOT) 12 L Alanine Aminotransferase (ALT/SGPT) 26 Alkaline Phosphatase 52 Troponin I 0.119 Total Protein 5.5 L Albumin 2.8 L Globulin 2.70 Albumin/Globulin Ratio 1.03 Blood Gas Specimen Source Blood arterial Arterial Blood Date Drawn 05/16/2017 7:06:41 AM Arterial Blood pH (Temp corrected) 7.391 Arterial Blood pCO2 (Temp correct) 55.5 H Arterial Blood pO2 (Temp corrected) 54.7 *L Arterial Blood HCO3 32.9 H Arterial Blood Base Excess 6.4 H Arterial Blood Oxygen Saturation 89.3 L Luis Armando Test ACCEPTAB Arterial Blood Gas Puncture Site Right Radial Arterial Blood Carboxyhemoglobin 0 Arterial Blood Methemoglobin 0.3 Blood Gas A-a O2 Differential 72.2 H Oxyhemoglobin Percent 89.0 L Total Hemoglobin 13.5 Blood Gas Temperature 37.0 Blood Gas Modality NASAL CANNULA FiO2 27.0 Blood Gas Critical Value Read Back NOEMI HOU Blood Gas Notified Whom TM Blood Gas Notified Time 05/16/2017 7:37:27 AM Bedside Glucose 117 122 Medications Medications Current Medications Ondansetron HCl (Zofran Inj) 4 mg Q6H PRN IV NAUSEA AND/OR VOMITING; Start at 10:30 Acetaminophen (Tylenol Tab) 650 mg Q6H PRN PO PAIN LEVEL 1-3 OR FEVER; Start at 10:30 Acetaminophen/ Hydrocodone Bitart ([place] (5/325)) 1 tab Q6H PRN PO PAIN LEVEL 4 -6 Last administered on 05/16/17 01:20; Admin Dose 1 TAB; Start 05/14/17 at 10: 30 Morphine Sulfate (morphine) 2 mg Q4H PRN IV PAIN LEVEL 7-10; Start 05/14/17 at 10:30 Heparin Sodium (Porcine) (Heparin (5000 Units/0.5 ml)) 5,000 unit Q8 SC Last administered on 05/16/17 13:34; Admin Dose 5,000 UNIT; Start 05/14/17 at 14:00 Clopidogrel Bisulfate (plaVIX) 75 mg DAILY PO Last administered on 05/16/17 08 :29; Admin Dose 75 MG; Start 05/15/17 at 09:00 Diagnostic Test (Pha) (Accu-Chek) 1 ea 02 XX ; Start 05/15/17 at 02:00 Insulin Glargine (Lantus) 33 unit DAILY@08 SC Last administered on 05/16/17 08 :32; Admin Dose 33 UNIT; Start 05/15/17 at 08:00 Miscellaneous Information 1 ea NOTE XX ; Start 05/14/17 at 10:30 Glucose (Glutose) 15 gm Q15M PRN PO DECREASED GLUCOSE; Start 05/14/17 at 10:30 Glucose (Glutose) 22.5 gm Q15M PRN PO DECREASED GLUCOSE; Start 05/14/17 at 10: 30 Dextrose (D50w Syringe) 25 ml Q15M PRN IV DECREASED GLUCOSE; Start 05/14/17 at 10:30 Dextrose (D50w Syringe) 50 ml Q15M PRN IV DECREASED GLUCOSE; Start 05/14/17 at 10:30 Glucagon (Glucagen) 1 mg Q15M PRN IM DECREASED GLUCOSE; Start 05/14/17 at 10:30 Glucose (Glutose) 15 gm Q15M PRN BUCCAL DECREASED GLUCOSE; Start 05/14/17 at 10 :30 Carvedilol (Coreg) 25 mg BID PO Last administered on 05/16/17 08:30; Admin Dose 25 MG; Start 05/14/17 at 12:30 Isosorbide Dinitrate (Isordil) 20 mg TID PO Last administered on 05/16/17 13: 29; Admin Dose 20 MG; Start 05/14/17 at 13:00 Hydralazine HCl (Apresoline) 10 mg Q4H PRN IV SBP more than 150; Start at 20:00 Atorvastatin Calcium (Lipitor) 40 mg HS PO Last administered on 05/15/17 21:37 ; Admin Dose 40 MG; Start 05/15/17 at 21:00 Hydralazine HCl (Apresoline) 10 mg Q8 PO Last administered on 05/16/17 13:31; Admin Dose 10 MG; Start 05/15/17 at 14:00 Allopurinol (Zyloprim) 100 mg BID PO Last administered on 05/16/17 08:29; Admin Dose 100 MG; Start 05/15/17 at 14:30 ARELI FRANKLIN MD May 16, 2017 15:32
[2017-05-16] MEDS: ATORVASTATIN 40 MG TAB PO SCH (20:57)
[2017-05-17] VITALS (18 sets, daily range): BP systolic 112–130; BP diastolic 58–84; PULSE 50–146; RESP 16–20
[2017-05-17] MEDS: ALBUTEROL/IPRATROPIUM (NEB) 3 ML AMP HHN SCH ×2 (01:13→21:02)
[2017-05-17] MEDS: ACCU-CHEK XX SCH (02:00)
[2017-05-17] MEDS: FUROSEMIDE 40 MG INJ IV SCH ×2 (05:56→17:33)
[2017-05-17] MEDS: HEPARIN 5,000 UNIT/0.5 ML VIAL SC SCH ×3 (06:08→20:49)
[2017-05-17 06:11] LABS: BASOPHIL # 0.1 10^3/ul (0.0-0.1); BASOPHILS % 1.2 % (0.0-2.0); EOSINOPHILS # 0.2 10^3/ul (0.0-0.5); EOSINOPHILS % 3.4 % (0.0-7.0); HEMATOCRIT 40.5 % (42.0-52.0); HEMOGLOBIN 12.4 g/dl (14.0-18.0); LYMPHOCYTES # 1.6 10^3/ul (0.8-2.9); LYMPHOCYTES % 23.9 % (15.0-51.0); MEAN CORPUSCULAR HEMOGLOBIN 27.9 pg (29.0-33.0); MEAN CORPUSCULAR HGB CONC 30.6 g/dl (32.0-37.0); MEAN CORPUSCULAR VOLUME 91.2 fl (82.0-101.0); MEAN PLATELET VOLUME 11.3 fl (7.4-10.4); MONOCYTE # 0.5 10^3/ul (0.3-0.9); MONOCYTES % 7.3 % (0.0-11.0); NEUTROPHIL # 4.4 10^3/ul (1.6-7.5); NEUTROPHILS % 64.1 % (39.0-77.0); PLATELET COUNT 188 10^3/UL (140-415); RED BLOOD COUNT 4.44 10^6/ul (4.70-6.10); WHITE BLOOD COUNT 6.9 10^3/ul (4.8-10.8)
[2017-05-17 06:53] LABS: CALCIUM 8.6 mg/dl (8.4-10.2); CREATININE 3.06 mg/dl (0.61-1.24); POTASSIUM 3.6 mmol/L (3.5-5.1)
[2017-05-17 06:54] LABS: MAGNESIUM 2.2 mg/dl (1.7-2.5); PHOSPHORUS 4.9 mg/dl (2.5-4.9)
[2017-05-17] MEDS: INSULIN ASPART [NOVOLOG] 3 ML PEN SC SCH ×4 (07:25→20:32)
[2017-05-17] MEDS: INSULIN GLARGINE [LANtus] 3 ML PEN SC SCH (07:53)
[2017-05-17] MEDS: CLOPIDOGREL 75 MG TAB PO SCH (08:53)
[2017-05-17] MEDS: ALLOPURINOL 100 MG TAB PO SCH ×2 (08:55→20:26)
[2017-05-17] MEDS: ISOSORBIDE DINITRATE 20 MG TAB PO SCH ×3 (08:55→20:41)
[2017-05-17] MEDS: HYDROCODONE/APAP (5/325) TAB PO PRN (11:04)
--- NOTE | 2017-05-17 11:36 | PN ---
Date/Time of Note Date/Time of Note DATE: 05/17/17 TIME: 11:32 Assessment/Plan VTE Prophylaxis VTE Prophylaxis Intervention: heparin Lines/Catheters IV [facility] Peripheral IV Urinary Cath still in place: No Assessment/Plan Chief Complaint/Hosp Course 1. Chest pain. Elevated troponins. The patient has prior history of CAD. Elevated troponins most probably secondary to a type II event. Patient will be continued on Plavix. Cardiology following. 2. Acute on chronic CHF exacerbation with systolic dysfunction. The patient will be diuresed adequately while watching the patient's renal function. 3. Acute on chronic respiratory failure. Hypoxic and hypercapnic. Continue NIPPV. Continue inhaled bronchodilators. Being followed by Pulmonology. 4. Cardiomyopathy with ejection fraction of 40% as per 2D echocardiogram done in February 2017. Patient will be continued on beta-blockers. RADHA inhibitors or ARB's will be avoided because of underlying worsening renal function. 5. Chronic kidney disease. The patient being followed by nephrology. Nephrotoxic drugs will be used with caution. 6. Diabetes mellitus. The patient will be continued on sliding scale insulin. Hemoglobin A1c 8.0. 7. Essential hypertension. The patient will be continued on antihypertensives. 8. Fluids, electrolytes, and nutrition. Carbohydrate controlled, renal diet. 9. DVT prophylaxis. Subcutaneous heparin. 10. Plan. Continue NIPPV as indicated. Continue careful diuresis. Discharge the patient home once cleared by consultants. Patient needs nocturnal CPAP for his obstructive sleep apnea. The patient used to have one, but currently none. Case discussed with Dr. Steinberg. Problems: Subjective 24 Hr Interval Summary Free Text/Dictation Denies any chest pain. Denies any dyspnea. Exam/Review of Systems Vital Signs Vitals Vital Signs Date Time Temp Pulse Resp B/P Pulse Ox O2 Delivery O2 Flow Rate FiO2 05/17/17 08:15 Nasal Cannula 3.0 05/17/17 08:13 64 05/17/17 08:01 97.8 16 120/74 93 05/17/17 04:36 50 Intake and Output 05/16/17 05/16/17 05/17/17 14:59 22:59 06:59 Intake Total 480 ml 650 ml 400 ml Output Total 1150 ml 500 ml 900 ml Balance -670 ml 150 ml -500 ml Exam General: Adequately build 51 year-old male lying in bed in no apparent distress. HEENT: Normocephalic, atraumatic. Eyes: Anicteric sclerae, conjunctivae clear. ENT: Nasal septum midline, oral mucosa moist. Neck supple, no JVD noticed. Respiratory: Bilaterally diminished. No use of accessory muscles of respiration. A few rales heard. Abdomen: Soft, nontender, and nondistended. Bowel sounds positive in all 4 quadrants. Genitourinary: Deferred. Extremities: No cyanosis. Bilateral lower extremity 1+ pitting edema. Neurologic: Cranial nerves II through XII grossly intact. The patient is awake, alert, and oriented. Skin: Bilateral lower extremity venous stasis changes. Results Result Diagram: 05/17/17 0552 05/17/17 0552 Results 24 hrs Laboratory Tests Test 05/16/17 11:47 05/16/17 17:26 05/16/17 20:55 05/17/17 04:55 Bedside Glucose 122 151 152 112 Test 05/17/17 05:52 05/17/17 07:48 White Blood Count 6.9 Red Blood Count 4.44 L Hemoglobin 12.4 L Hematocrit 40.5 L Mean Corpuscular Volume 91.2 Mean Corpuscular Hemoglobin 27.9 L Mean Corpuscular Hemoglobin Concent 30.6 L Red Cell Distribution Width 14.0 Platelet Count 188 Mean Platelet Volume 11.3 H Neutrophils % 64.1 Lymphocytes % 23.9 Monocytes % 7.3 Eosinophils % 3.4 Basophils % 1.2 Nucleated Red Blood Cells % 0.0 Neutrophils # 4.4 Lymphocytes # 1.6 Monocytes # 0.5 Eosinophils # 0.2 Basophils # 0.1 Nucleated Red Blood Cells # 0.0 Sodium Level 140 Potassium Level 3.6 Chloride Level 102 Carbon Dioxide Level 34 H Anion Gap 8 Blood Urea Nitrogen 42 H Creatinine 3.06 H Glucose Level 106 Calcium Level 8.6 Phosphorus Level 4.9 Magnesium Level 2.2 Bedside Glucose 140 Medications Medications Current Medications Ondansetron HCl (Zofran Inj) 4 mg Q6H PRN IV NAUSEA AND/OR VOMITING; Start at 10:30 Acetaminophen (Tylenol Tab) 650 mg Q6H PRN PO PAIN LEVEL 1-3 OR FEVER; Start at 10:30 Acetaminophen/ Hydrocodone Bitart ([place] (5/325)) 1 tab Q6H PRN PO PAIN LEVEL 4 -6 Last administered on 05/17/17 11:04; Admin Dose 1 TAB; Start 05/14/17 at 10: 30 Morphine Sulfate (morphine) 2 mg Q4H PRN IV PAIN LEVEL 7-10; Start 05/14/17 at 10:30 Heparin Sodium (Porcine) (Heparin (5000 Units/0.5 ml)) 5,000 unit Q8 SC Last administered on 05/17/17 06:08; Admin Dose 5,000 UNIT; Start 05/14/17 at 14:00 Clopidogrel Bisulfate (plaVIX) 75 mg DAILY PO Last administered on 05/17/17 08 :53; Admin Dose 75 MG; Start 05/15/17 at 09:00 Diagnostic Test (Pha) (Accu-Chek) 1 ea 02 XX ; Start 05/15/17 at 02:00 Insulin Glargine (Lantus) 33 unit DAILY@08 SC Last administered on 05/17/17 07 :53; Admin Dose 33 UNIT; Start 05/15/17 at 08:00 Miscellaneous Information 1 ea NOTE XX ; Start 05/14/17 at 10:30 Glucose (Glutose) 15 gm Q15M PRN PO DECREASED GLUCOSE; Start 05/14/17 at 10:30 Glucose (Glutose) 22.5 gm Q15M PRN PO DECREASED GLUCOSE; Start 05/14/17 at 10: 30 Dextrose (D50w Syringe) 25 ml Q15M PRN IV DECREASED GLUCOSE; Start 05/14/17 at 10:30 Dextrose (D50w Syringe) 50 ml Q15M PRN IV DECREASED GLUCOSE; Start 05/14/17 at 10:30 Glucagon (Glucagen) 1 mg Q15M PRN IM DECREASED GLUCOSE; Start 05/14/17 at 10:30 Glucose (Glutose) 15 gm Q15M PRN BUCCAL DECREASED GLUCOSE; Start 05/14/17 at 10 :30 Carvedilol (Coreg) 25 mg BID PO Last administered on 05/17/17 08:55; Admin Dose 25 MG; Start 05/14/17 at 12:30 Isosorbide Dinitrate (Isordil) 20 mg TID PO Last administered on 05/17/17 08: 55; Admin Dose 20 MG; Start 05/14/17 at 13:00 Hydralazine HCl (Apresoline) 10 mg Q4H PRN IV SBP more than 150; Start at 20:00 Atorvastatin Calcium (Lipitor) 40 mg HS PO Last administered on 05/16/17 20:57 ; Admin Dose 40 MG; Start 05/15/17 at 21:00 Hydralazine HCl (Apresoline) 10 mg Q8 PO Last administered on 05/16/17 13:31; Admin Dose 10 MG; Start 05/15/17 at 14:00 Allopurinol (Zyloprim) 100 mg BID PO Last administered on 05/17/17 08:55; Admin Dose 100 MG; Start 05/15/17 at 14:30 HANNAH ONOFRE NP May 17, 2017 11:36 HANNAH ONOFRE NP May 17, 2017 11:36
--- NOTE | 2017-05-17 13:36 | PN ---
Date/Time of Note Date/Time of Note DATE: 05/17/17 TIME: 13:35 Assessment/Plan VTE Prophylaxis VTE Prophylaxis Intervention: SCD's Lines/Catheters IV Catheter Type (from Nrs): Peripheral IV Urinary Cath still in place: No Assessment/Plan Assessment/Plan Respiratory failure on BiPAP Acute decompensated systolic congestive heart failure Cardiomyopathy with ejection fraction 40% COPD exacerbation Acute on chronic kidney disease Active tobacco use Nonsustained ventricular tachycardia Obstructive sleep apnea Poor compliance Tobacco use -Respiratory status clinically improving. Patient currently on 20 mg of IV Lasix twice daily Patient currently taking p.o. medications. hydralazine for afterload reduction given cardiomyopathy. Continue antiplatelet therapy and statin therapy if no contraindication Subjective 24 Hr Interval Summary Free Text/Dictation the patietn is stable Exam/Review of Systems Vital Signs Vitals Vital Signs Date Time Temp Pulse Resp B/P Pulse Ox O2 Delivery O2 Flow Rate FiO2 05/17/17 12:05 66 05/17/17 11:44 97.7 16 121/68 90 05/17/17 08:15 Nasal Cannula 3.0 05/17/17 04:36 50 Intake and Output 05/16/17 05/16/17 05/17/17 15:00 23:00 07:00 Intake Total 480 ml 650 ml 400 ml Output Total 1150 ml 500 ml 900 ml Balance -670 ml 150 ml -500 ml Results Result Diagram: 05/17/17 0552 05/17/17 0552 Results 24 hrs Laboratory Tests Test 05/16/17 17:26 05/16/17 20:55 05/17/17 04:55 05/17/17 05:52 Bedside Glucose 151 152 112 White Blood Count 6.9 Red Blood Count 4.44 L Hemoglobin 12.4 L Hematocrit 40.5 L Mean Corpuscular Volume 91.2 Mean Corpuscular Hemoglobin 27.9 L Mean Corpuscular Hemoglobin Concent 30.6 L Red Cell Distribution Width 14.0 Platelet Count 188 Mean Platelet Volume 11.3 H Neutrophils % 64.1 Lymphocytes % 23.9 Monocytes % 7.3 Eosinophils % 3.4 Basophils % 1.2 Nucleated Red Blood Cells % 0.0 Neutrophils # 4.4 Lymphocytes # 1.6 Monocytes # 0.5 Eosinophils # 0.2 Basophils # 0.1 Nucleated Red Blood Cells # 0.0 Sodium Level 140 Potassium Level 3.6 Chloride Level 102 Carbon Dioxide Level 34 H Anion Gap 8 Blood Urea Nitrogen 42 H Creatinine 3.06 H Glucose Level 106 Calcium Level 8.6 Phosphorus Level 4.9 Magnesium Level 2.2 Test 05/17/17 07:48 05/17/17 12:05 Bedside Glucose 140 162 Medications Medications Current Medications Ondansetron HCl (Zofran Inj) 4 mg Q6H PRN IV NAUSEA AND/OR VOMITING; Start at 10:30 Acetaminophen (Tylenol Tab) 650 mg Q6H PRN PO PAIN LEVEL 1-3 OR FEVER; Start at 10:30 Acetaminophen/ Hydrocodone Bitart ([place] (5/325)) 1 tab Q6H PRN PO PAIN LEVEL 4 -6 Last administered on 05/17/17 11:04; Admin Dose 1 TAB; Start 05/14/17 at 10: 30 Morphine Sulfate (morphine) 2 mg Q4H PRN IV PAIN LEVEL 7-10; Start 05/14/17 at 10:30 Heparin Sodium (Porcine) (Heparin (5000 Units/0.5 ml)) 5,000 unit Q8 SC Last administered on 05/17/17 06:08; Admin Dose 5,000 UNIT; Start 05/14/17 at 14:00 Clopidogrel Bisulfate (plaVIX) 75 mg DAILY PO Last administered on 05/17/17 08 :53; Admin Dose 75 MG; Start 05/15/17 at 09:00 Diagnostic Test (Pha) (Accu-Chek) 1 ea 02 XX ; Start 05/15/17 at 02:00 Insulin Glargine (Lantus) 33 unit DAILY@08 SC Last administered on 05/17/17 07 :53; Admin Dose 33 UNIT; Start 05/15/17 at 08:00 Miscellaneous Information 1 ea NOTE XX ; Start 05/14/17 at 10:30 Glucose (Glutose) 15 gm Q15M PRN PO DECREASED GLUCOSE; Start 05/14/17 at 10:30 Glucose (Glutose) 22.5 gm Q15M PRN PO DECREASED GLUCOSE; Start 05/14/17 at 10: 30 Dextrose (D50w Syringe) 25 ml Q15M PRN IV DECREASED GLUCOSE; Start 05/14/17 at 10:30 Dextrose (D50w Syringe) 50 ml Q15M PRN IV DECREASED GLUCOSE; Start 05/14/17 at 10:30 Glucagon (Glucagen) 1 mg Q15M PRN IM DECREASED GLUCOSE; Start 05/14/17 at 10:30 Glucose (Glutose) 15 gm Q15M PRN BUCCAL DECREASED GLUCOSE; Start 05/14/17 at 10 :30 Carvedilol (Coreg) 25 mg BID PO Last administered on 05/17/17 08:55; Admin Dose 25 MG; Start 05/14/17 at 12:30 Isosorbide Dinitrate (Isordil) 20 mg TID PO Last administered on 05/17/17 12: 13; Admin Dose 20 MG; Start 05/14/17 at 13:00 Hydralazine HCl (Apresoline) 10 mg Q4H PRN IV SBP more than 150; Start at 20:00 Atorvastatin Calcium (Lipitor) 40 mg HS PO Last administered on 05/16/17 20:57 ; Admin Dose 40 MG; Start 05/15/17 at 21:00 Hydralazine HCl (Apresoline) 10 mg Q8 PO Last administered on 05/16/17 13:31; Admin Dose 10 MG; Start 05/15/17 at 14:00 Allopurinol (Zyloprim) 100 mg BID PO Last administered on 05/17/17 08:55; Admin Dose 100 MG; Start 05/15/17 at 14:30 CARLOS BHATIA MD May 17, 2017 13:36
--- NOTE | 2017-05-17 15:02 | CONS ---
Date/Time of Note Date/Time of Note DATE: 05/17/17 TIME: 14:58 Assessment/Plan Assessment/Plan Additional Assessment/Plan 1. Acute kidney injury on CKD III due to cardiorenal syndrome 2. Acute on chronic CHF exacerbation 3. Acute hypercapnic and hypoxic resp failure, acute on chronic- on BIPAP 4. H/O CKD III 5. DONALD 6. H/o CAD S/p CABG 7. H/o COPD 8. H/o CHF 9. Hyperuricemia with uric acid 12.8 Plan : on lasix 40mg IV BID- plan is to switch lasix to 40mg PO BID tomorrow off BIPAP now Cr 3.06, conitnue allopurinol 100mg PO BID for hyperuricemia Strict I/O renally dose all antibiotics will follow up Consultation Date/Type/Reason Admit Date/Time May 14, 2017 at 09:05 Initial Consult Date 05/14/17 Type of Consultation: NEPHROLOGY Referring Provider: HANNAH ONOFRE [employer]VEL[employer] FOLDING MACHINE ADJUSTER 24 HR Interval Summary Free Text/Dictation transferred to telemetry floor, off BIPAP now, BP stable Exam/Review of Systems Vital Signs Vitals Vital Signs Date Time Temp Pulse Resp B/P Pulse Ox O2 Delivery O2 Flow Rate FiO2 05/17/17 13:57 146 05/17/17 11:44 97.7 16 121/68 90 05/17/17 08:15 Nasal Cannula 3.0 05/17/17 04:36 50 Intake and Output 05/16/17 05/16/17 05/17/17 15:00 23:00 07:00 Intake Total 480 ml 650 ml 400 ml Output Total 1150 ml 500 ml 900 ml Balance -670 ml 150 ml -500 ml Exam Constitutional: awake, alert, off BIPAP Respiratory: congested cough, crackles/rales, diminished breath sounds Cardiovascular: nl pulses, regular rate and rhythm Gastrointestinal: non-tender, soft Musculoskeletal: nl extremities to inspection Extremities: normal pulses Results Result Diagram: 05/17/17 0552 05/17/17 0552 Results 24 hrs Laboratory Tests Test 05/16/17 17:26 05/16/17 20:55 05/17/17 04:55 05/17/17 05:52 Bedside Glucose 151 152 112 White Blood Count 6.9 Red Blood Count 4.44 L Hemoglobin 12.4 L Hematocrit 40.5 L Mean Corpuscular Volume 91.2 Mean Corpuscular Hemoglobin 27.9 L Mean Corpuscular Hemoglobin Concent 30.6 L Red Cell Distribution Width 14.0 Platelet Count 188 Mean Platelet Volume 11.3 H Neutrophils % 64.1 Lymphocytes % 23.9 Monocytes % 7.3 Eosinophils % 3.4 Basophils % 1.2 Nucleated Red Blood Cells % 0.0 Neutrophils # 4.4 Lymphocytes # 1.6 Monocytes # 0.5 Eosinophils # 0.2 Basophils # 0.1 Nucleated Red Blood Cells # 0.0 Sodium Level 140 Potassium Level 3.6 Chloride Level 102 Carbon Dioxide Level 34 H Anion Gap 8 Blood Urea Nitrogen 42 H Creatinine 3.06 H Glucose Level 106 Calcium Level 8.6 Phosphorus Level 4.9 Magnesium Level 2.2 Test 05/17/17 07:48 05/17/17 12:05 Bedside Glucose 140 162 Medications Medications Current Medications Ondansetron HCl (Zofran Inj) 4 mg Q6H PRN IV NAUSEA AND/OR VOMITING; Start at 10:30 Acetaminophen (Tylenol Tab) 650 mg Q6H PRN PO PAIN LEVEL 1-3 OR FEVER; Start at 10:30 Acetaminophen/ Hydrocodone Bitart ([place] (5/325)) 1 tab Q6H PRN PO PAIN LEVEL 4 -6 Last administered on 05/17/17 11:04; Admin Dose 1 TAB; Start 05/14/17 at 10: 30 Morphine Sulfate (morphine) 2 mg Q4H PRN IV PAIN LEVEL 7-10; Start 05/14/17 at 10:30 Heparin Sodium (Porcine) (Heparin (5000 Units/0.5 ml)) 5,000 unit Q8 SC Last administered on 05/17/17 14:08; Admin Dose 5,000 UNIT; Start 05/14/17 at 14:00 Clopidogrel Bisulfate (plaVIX) 75 mg DAILY PO Last administered on 05/17/17 08 :53; Admin Dose 75 MG; Start 05/15/17 at 09:00 Diagnostic Test (Pha) (Accu-Chek) 1 ea 02 XX ; Start 05/15/17 at 02:00 Insulin Glargine (Lantus) 33 unit DAILY@08 SC Last administered on 05/17/17 07 :53; Admin Dose 33 UNIT; Start 05/15/17 at 08:00 Miscellaneous Information 1 ea NOTE XX ; Start 05/14/17 at 10:30 Glucose (Glutose) 15 gm Q15M PRN PO DECREASED GLUCOSE; Start 05/14/17 at 10:30 Glucose (Glutose) 22.5 gm Q15M PRN PO DECREASED GLUCOSE; Start 05/14/17 at 10: 30 Dextrose (D50w Syringe) 25 ml Q15M PRN IV DECREASED GLUCOSE; Start 05/14/17 at 10:30 Dextrose (D50w Syringe) 50 ml Q15M PRN IV DECREASED GLUCOSE; Start 05/14/17 at 10:30 Glucagon (Glucagen) 1 mg Q15M PRN IM DECREASED GLUCOSE; Start 05/14/17 at 10:30 Glucose (Glutose) 15 gm Q15M PRN BUCCAL DECREASED GLUCOSE; Start 05/14/17 at 10 :30 Carvedilol (Coreg) 25 mg BID PO Last administered on 05/17/17 08:55; Admin Dose 25 MG; Start 05/14/17 at 12:30 Isosorbide Dinitrate (Isordil) 20 mg TID PO Last administered on 05/17/17 12: 13; Admin Dose 20 MG; Start 05/14/17 at 13:00 Hydralazine HCl (Apresoline) 10 mg Q4H PRN IV SBP more than 150; Start at 20:00 Atorvastatin Calcium (Lipitor) 40 mg HS PO Last administered on 05/16/17 20:57 ; Admin Dose 40 MG; Start 05/15/17 at 21:00 Hydralazine HCl (Apresoline) 10 mg Q8 PO Last administered on 05/17/17 14:07; Admin Dose 10 MG; Start 05/15/17 at 14:00 Allopurinol (Zyloprim) 100 mg BID PO Last administered on 05/17/17 08:55; Admin Dose 100 MG; Start 05/15/17 at 14:30 ARELI FRANKLIN MD May 17, 2017 15:02
--- NOTE | 2017-05-17 17:13 | CONS ---
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 Objective Vital Signs Date Time Temp Pulse Resp B/P Pulse Ox O2 Delivery O2 Flow Rate FiO2 05/17/17 16:08 63 05/17/17 15:06 98.2 18 112/66 98 05/17/17 08:15 Nasal Cannula 3.0 05/17/17 04:36 50 Intake and Output 05/16/17 05/16/17 05/17/17 14:59 22:59 06:59 Intake Total 480 ml 650 ml 400 ml Output Total 1150 ml 500 ml 900 ml Balance -670 ml 150 ml -500 ml Exam HEENT: Moist mucous movements pupils equal reactive to light Cardiac exam S1-S2 2 systolic ejection murmur Respiratory: Diminished air entry bilaterally with rales Abdomen: Obese soft nontender no guarding rebound Extremities: No cyanosis clubbing 1+ edema Neurologically: No focal deficits Results/Medications Result Diagram: 05/17/17 0552 05/17/17 0552 Results 24 hrs Laboratory Tests Test 05/16/17 17:26 05/16/17 20:55 05/17/17 04:55 05/17/17 05:52 Bedside Glucose 151 152 112 White Blood Count 6.9 Red Blood Count 4.44 L Hemoglobin 12.4 L Hematocrit 40.5 L Mean Corpuscular Volume 91.2 Mean Corpuscular Hemoglobin 27.9 L Mean Corpuscular Hemoglobin Concent 30.6 L Red Cell Distribution Width 14.0 Platelet Count 188 Mean Platelet Volume 11.3 H Neutrophils % 64.1 Lymphocytes % 23.9 Monocytes % 7.3 Eosinophils % 3.4 Basophils % 1.2 Nucleated Red Blood Cells % 0.0 Neutrophils # 4.4 Lymphocytes # 1.6 Monocytes # 0.5 Eosinophils # 0.2 Basophils # 0.1 Nucleated Red Blood Cells # 0.0 Sodium Level 140 Potassium Level 3.6 Chloride Level 102 Carbon Dioxide Level 34 H Anion Gap 8 Blood Urea Nitrogen 42 H Creatinine 3.06 H Glucose Level 106 Calcium Level 8.6 Phosphorus Level 4.9 Magnesium Level 2.2 Test 05/17/17 07:48 05/17/17 12:05 9/22/17 17:09 Bedside Glucose 140 162 89 Medications Current Medications Ondansetron HCl (Zofran Inj) 4 mg Q6H PRN IV NAUSEA AND/OR VOMITING; Start at 10:30 Acetaminophen (Tylenol Tab) 650 mg Q6H PRN PO PAIN LEVEL 1-3 OR FEVER; Start at 10:30 Acetaminophen/ Hydrocodone Bitart ([place] (5/325)) 1 tab Q6H PRN PO PAIN LEVEL 4 -6 Last administered on 05/17/17 11:04; Admin Dose 1 TAB; Start 05/14/17 at 10: 30 Morphine Sulfate (morphine) 2 mg Q4H PRN IV PAIN LEVEL 7-10; Start 05/14/17 at 10:30 Heparin Sodium (Porcine) (Heparin (5000 Units/0.5 ml)) 5,000 unit Q8 SC Last administered on 05/17/17 14:08; Admin Dose 5,000 UNIT; Start 05/14/17 at 14:00 Clopidogrel Bisulfate (plaVIX) 75 mg DAILY PO Last administered on 05/17/17 08 :53; Admin Dose 75 MG; Start 05/15/17 at 09:00 Diagnostic Test (Pha) (Accu-Chek) 1 ea 02 XX ; Start 05/15/17 at 02:00 Insulin Glargine (Lantus) 33 unit DAILY@08 SC Last administered on 05/17/17 07 :53; Admin Dose 33 UNIT; Start 05/15/17 at 08:00 Miscellaneous Information 1 ea NOTE XX ; Start 05/14/17 at 10:30 Glucose (Glutose) 15 gm Q15M PRN PO DECREASED GLUCOSE; Start 05/14/17 at 10:30 Glucose (Glutose) 22.5 gm Q15M PRN PO DECREASED GLUCOSE; Start 05/14/17 at 10: 30 Dextrose (D50w Syringe) 25 ml Q15M PRN IV DECREASED GLUCOSE; Start 05/14/17 at 10:30 Dextrose (D50w Syringe) 50 ml Q15M PRN IV DECREASED GLUCOSE; Start 05/14/17 at 10:30 Glucagon (Glucagen) 1 mg Q15M PRN IM DECREASED GLUCOSE; Start 05/14/17 at 10:30 Glucose (Glutose) 15 gm Q15M PRN BUCCAL DECREASED GLUCOSE; Start 05/14/17 at 10 :30 Carvedilol (Coreg) 25 mg BID PO Last administered on 05/17/17 08:55; Admin Dose 25 MG; Start 05/14/17 at 12:30 Isosorbide Dinitrate (Isordil) 20 mg TID PO Last administered on 05/17/17 12: 13; Admin Dose 20 MG; Start 05/14/17 at 13:00 Hydralazine HCl (Apresoline) 10 mg Q4H PRN IV SBP more than 150; Start at 20:00 Atorvastatin Calcium (Lipitor) 40 mg HS PO Last administered on 05/16/17 20:57 ; Admin Dose 40 MG; Start 05/15/17 at 21:00 Hydralazine HCl (Apresoline) 10 mg Q8 PO Last administered on 05/17/17 14:07; Admin Dose 10 MG; Start 05/15/17 at 14:00 Allopurinol (Zyloprim) 100 mg BID PO Last administered on 05/17/17 08:55; Admin Dose 100 MG; Start 05/15/17 at 14:30 Assessment/Plan Chief Complaint/Hosp Course Assessment 1. Status post acute hypoxemic and hypercapnic respiratory failure 2. DONALD 3. History of coronary artery bypass graft surgery 4. Status post acute on chronic congestive cardiac failure Plan 1. Continue supplemental O2 2. Continue diuretics as tolerated 3. Noninvasive positive pressure ventilation 4. Outpatient sleep study and PFTs 5. Encourage ambulation dc ok from pulm standpoint. Problems: AMI GRIMES MD, [facility] May 17, 2017 17:13
[2017-05-17] MEDS: ATORVASTATIN 40 MG TAB PO SCH (20:26)
[2017-05-18] VITALS (14 sets, daily range): BP systolic 121–131; BP diastolic 58–80; PULSE 54–101; RESP 17–20
[2017-05-18] MEDS: ALBUTEROL/IPRATROPIUM (NEB) 3 ML AMP HHN SCH ×3 (01:08→14:36)
[2017-05-18] MEDS: ACCU-CHEK XX SCH (02:00)
[2017-05-18] MEDS: FUROSEMIDE 40 MG INJ IV SCH (05:30)
[2017-05-18] MEDS: HEPARIN 5,000 UNIT/0.5 ML VIAL SC SCH ×2 (06:02→14:09)
[2017-05-18 06:32] LABS: BASOPHIL # 0.1 10^3/ul (0.0-0.1); BASOPHILS % 1.3 % (0.0-2.0); EOSINOPHILS # 0.2 10^3/ul (0.0-0.5); EOSINOPHILS % 3.3 % (0.0-7.0); HEMATOCRIT 39.2 % (42.0-52.0); LYMPHOCYTES # 1.6 10^3/ul (0.8-2.9); MEAN CORPUSCULAR HGB CONC 30.6 g/dl (32.0-37.0); MEAN CORPUSCULAR VOLUME 91.4 fl (82.0-101.0); MEAN PLATELET VOLUME 11.3 fl (7.4-10.4); MONOCYTE # 0.5 10^3/ul (0.3-0.9); MONOCYTES % 7.5 % (0.0-11.0); NEUTROPHIL # 4.3 10^3/ul (1.6-7.5); NEUTROPHILS % 63.8 % (39.0-77.0); PLATELET COUNT 178 10^3/UL (140-415); RED BLOOD COUNT 4.29 10^6/ul (4.70-6.10); WHITE BLOOD COUNT 6.7 10^3/ul (4.8-10.8)
[2017-05-18] MEDS: INSULIN ASPART [NOVOLOG] 3 ML PEN SC SCH ×2 (07:25→12:59)
[2017-05-18 07:41] LABS: CALCIUM 8.1 mg/dl (8.4-10.2); CREATININE 2.92 mg/dl (0.61-1.24); POTASSIUM 3.9 mmol/L (3.5-5.1)
[2017-05-18 07:52] LABS: MAGNESIUM 1.9 mg/dl (1.7-2.5); PHOSPHORUS 5.1 mg/dl (2.5-4.9)
[2017-05-18] MEDS: CLOPIDOGREL 75 MG TAB PO SCH (08:11)
[2017-05-18] MEDS: ALLOPURINOL 100 MG TAB PO SCH (08:11)
[2017-05-18] MEDS: ISOSORBIDE DINITRATE 20 MG TAB PO SCH ×2 (08:12→14:07)
[2017-05-18] MEDS: INSULIN GLARGINE [LANtus] 3 ML PEN SC SCH (08:19)
--- NOTE | 2017-05-18 09:39 | CONS ---
Date/Time of Note Date/Time of Note DATE: 05/18/17 TIME: 09:37 Assessment/Plan Assessment/Plan Chief Complaint/Hosp Course Respiratory failure on BiPAP Acute decompensated systolic congestive heart failure Cardiomyopathy with ejection fraction 40% COPD exacerbation Acute on chronic kidney disease Active tobacco use Nonsustained ventricular tachycardia Obstructive sleep apnea Poor compliance Problems: Additional Assessment/Plan 1) No RADHA/ARB due to SHERINE 2) given NSVT will given 1 mg of magnesium dw pat Consultation Date/Type/Reason Admit Date/Time May 14, 2017 at 09:05 Initial Consult Date 05/14/17 Type of Consultation: cv Referring Provider: HANNAH ONOFRE NP 24 HR Interval Summary Free Text/Dictation exertional sob, no chest pain, Detailed Summary Respiratory: shortness of breath Cardiovascular: no complaints Gastrointestinal: no complaints Genitourinary: no complaints Musculoskeletal: no complaints Skin: no complaints Neurologic: no complaints Endocrine: no complaints Lymphatic: no complaints Exam/Review of Systems Vital Signs Vitals Vital Signs Date Time Temp Pulse Resp B/P Pulse Ox O2 Delivery O2 Flow Rate FiO2 05/18/17 09:05 63 93 40 05/18/17 07:42 97.7 20 131/80 05/18/17 05:45 2.0 05/17/17 21:11 Nasal Cannula Intake and Output 05/17/17 05/17/17 05/18/17 15:00 23:00 07:00 Intake Total 740 ml 450 ml Output Total 900 ml 650 ml Balance -160 ml -200 ml Exam Constitutional: alert, oriented Head: atraumatic, normocephalic Neck: jvd Respiratory: diminished breath sounds Cardiovascular: regular rate and rhythm Gastrointestinal: soft Musculoskeletal: nl extremities to inspection Extremities: normal pulses 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 Results Result Diagram: 05/18/17 0602 05/18/17 0602 Results 24 hrs Laboratory Tests Test 05/17/17 12:05 05/17/17 17:09 05/17/17 20:16 05/18/17 02:03 Bedside Glucose 162 89 174 194 Test 05/18/17 05:59 05/18/17 06:02 05/18/17 08:09 Phosphorus Level 5.1 H Magnesium Level 1.9 White Blood Count 6.7 Red Blood Count 4.29 L Hemoglobin 12.0 L Hematocrit 39.2 L Mean Corpuscular Volume 91.4 Mean Corpuscular Hemoglobin 28.0 L Mean Corpuscular Hemoglobin Concent 30.6 L Red Cell Distribution Width 14.0 Platelet Count 178 Mean Platelet Volume 11.3 H Neutrophils % 63.8 Lymphocytes % 24.0 Monocytes % 7.5 Eosinophils % 3.3 Basophils % 1.3 Nucleated Red Blood Cells % 0.0 Neutrophils # 4.3 Lymphocytes # 1.6 Monocytes # 0.5 Eosinophils # 0.2 Basophils # 0.1 Nucleated Red Blood Cells # 0.0 Sodium Level 141 Potassium Level 3.9 Chloride Level 102 Carbon Dioxide Level 32 H Anion Gap 11 Blood Urea Nitrogen 39 H Creatinine 2.92 H Glucose Level 104 Calcium Level 8.1 L Bedside Glucose 119 Medications Medications Current Medications Ondansetron HCl (Zofran Inj) 4 mg Q6H PRN IV NAUSEA AND/OR VOMITING; Start at 10:30 Acetaminophen (Tylenol Tab) 650 mg Q6H PRN PO PAIN LEVEL 1-3 OR FEVER; Start at 10:30 Acetaminophen/ Hydrocodone Bitart ([place] (5/325)) 1 tab Q6H PRN PO PAIN LEVEL 4 -6 Last administered on 05/17/17 11:04; Admin Dose 1 TAB; Start 05/14/17 at 10: 30 Morphine Sulfate (morphine) 2 mg Q4H PRN IV PAIN LEVEL 7-10; Start 05/14/17 at 10:30 Heparin Sodium (Porcine) (Heparin (5000 Units/0.5 ml)) 5,000 unit Q8 SC Last administered on 05/18/17 06:02; Admin Dose 5,000 UNIT; Start 05/14/17 at 14:00 Clopidogrel Bisulfate (plaVIX) 75 mg DAILY PO Last administered on 05/18/17 08 :11; Admin Dose 75 MG; Start 05/15/17 at 09:00 Diagnostic Test (Pha) (Accu-Chek) 1 ea 02 XX ; Start 05/15/17 at 02:00 Insulin Glargine (Lantus) 33 unit DAILY@08 SC Last administered on 05/18/17 08 :19; Admin Dose 33 UNIT; Start 05/15/17 at 08:00 Miscellaneous Information 1 ea NOTE XX ; Start 05/14/17 at 10:30 Glucose (Glutose) 15 gm Q15M PRN PO DECREASED GLUCOSE; Start 05/14/17 at 10:30 Glucose (Glutose) 22.5 gm Q15M PRN PO DECREASED GLUCOSE; Start 05/14/17 at 10: 30 Dextrose (D50w Syringe) 25 ml Q15M PRN IV DECREASED GLUCOSE; Start 05/14/17 at 10:30 Dextrose (D50w Syringe) 50 ml Q15M PRN IV DECREASED GLUCOSE; Start 05/14/17 at 10:30 Glucagon (Glucagen) 1 mg Q15M PRN IM DECREASED GLUCOSE; Start 05/14/17 at 10:30 Glucose (Glutose) 15 gm Q15M PRN BUCCAL DECREASED GLUCOSE; Start 05/14/17 at 10 :30 Carvedilol (Coreg) 25 mg BID PO Last administered on 05/17/17 20:25; Admin Dose 25 MG; Start 05/14/17 at 12:30 Isosorbide Dinitrate (Isordil) 20 mg TID PO Last administered on 05/18/17 08: 12; Admin Dose 20 MG; Start 05/14/17 at 13:00 Hydralazine HCl (Apresoline) 10 mg Q4H PRN IV SBP more than 150; Start at 20:00 Atorvastatin Calcium (Lipitor) 40 mg HS PO Last administered on 05/17/17 20:26 ; Admin Dose 40 MG; Start 05/15/17 at 21:00 Hydralazine HCl (Apresoline) 10 mg Q8 PO Last administered on 05/17/17 14:07; Admin Dose 10 MG; Start 05/15/17 at 14:00 Allopurinol (Zyloprim) 100 mg BID PO Last administered on 05/18/17 08:11; Admin Dose 100 MG; Start 05/15/17 at 14:30 CAITLYN FRANCE MD May 18, 2017 09:39
[2017-05-18] MEDS ORDERED: MAGNESIUM SULFATE 1 GM/D5W 100 ML IVPB ONE (10:30)
[2017-05-18] MEDS: HYDROCODONE/APAP (5/325) TAB PO PRN (11:13)
--- NOTE | 2017-05-18 12:47 | CONS ---
Date/Time of Note Date/Time of Note DATE: 05/18/17 TIME: 12:45 Assessment/Plan Assessment/Plan Additional Assessment/Plan Assessment and recommendations; 1. Patient admitted with CHF exacerbation with significant interval improvement. 2. Chronic renal insufficiency. 3. Diabetes. Next 4. Hypertension. 5. Non-STEMI. 6. Likely underlying sleep apnea. Continue current treatment. Consider performing a sleep study on outpatient basis. Consider discharge as well. Consultation Date/Type/Reason Admit Date/Time May 14, 2017 at 09:05 Initial Consult Date 05/14/17 Type of Consultation: Pulmonary Referring Provider: HANNAH ONOFRE NP 24 HR Interval Summary Free Text/Dictation Patient condition stable. Denies any shortness of breath, chest pain. General exam; middle-aged male, awake and alert. Currently in no distress. Exam/Review of Systems Vital Signs Vitals Vital Signs Date Time Temp Pulse Resp B/P Pulse Ox O2 Delivery O2 Flow Rate FiO2 05/18/17 12:28 98.1 67 18 128/76 91 05/18/17 09:05 40 05/18/17 05:45 2.0 05/17/17 21:11 Nasal Cannula Intake and Output 05/17/17 05/17/17 05/18/17 15:00 23:00 07:00 Intake Total 740 ml 450 ml Output Total 900 ml 650 ml Balance -160 ml -200 ml Exam HEENT exam; supple neck, no JVD. No lymphadenopathy. Midline trachea. No thyromegaly. Pharynx is clear. Has fair dentition. Chest exam; clear to auscultation. S1-S2 audible, no murmurs. Regular rhythm. There is a well-healed sternal scar. Abdomen exam; soft, nontender. No organomegaly. Bowel sounds audible. Protuberant. Extremity exam; no peripheral edema. [employer] exam; no focal deficit. Results Result Diagram: 05/18/17 0602 05/18/17 0602 Results 24 hrs Laboratory Tests Test 05/17/17 17:09 05/17/17 20:16 05/18/17 02:03 05/18/17 05:59 Bedside Glucose 89 174 194 Phosphorus Level 5.1 H Magnesium Level 1.9 Test 05/18/17 06:02 05/18/17 08:09 05/18/17 11:50 White Blood Count 6.7 Red Blood Count 4.29 L Hemoglobin 12.0 L Hematocrit 39.2 L Mean Corpuscular Volume 91.4 Mean Corpuscular Hemoglobin 28.0 L Mean Corpuscular Hemoglobin Concent 30.6 L Red Cell Distribution Width 14.0 Platelet Count 178 Mean Platelet Volume 11.3 H Neutrophils % 63.8 Lymphocytes % 24.0 Monocytes % 7.5 Eosinophils % 3.3 Basophils % 1.3 Nucleated Red Blood Cells % 0.0 Neutrophils # 4.3 Lymphocytes # 1.6 Monocytes # 0.5 Eosinophils # 0.2 Basophils # 0.1 Nucleated Red Blood Cells # 0.0 Sodium Level 141 Potassium Level 3.9 Chloride Level 102 Carbon Dioxide Level 32 H Anion Gap 11 Blood Urea Nitrogen 39 H Creatinine 2.92 H Glucose Level 104 Calcium Level 8.1 L Bedside Glucose 119 295 H Medications Medications Current Medications Ondansetron HCl (Zofran Inj) 4 mg Q6H PRN IV NAUSEA AND/OR VOMITING; Start at 10:30 Acetaminophen (Tylenol Tab) 650 mg Q6H PRN PO PAIN LEVEL 1-3 OR FEVER; Start at 10:30 Acetaminophen/ Hydrocodone Bitart ([place] (5/325)) 1 tab Q6H PRN PO PAIN LEVEL 4 -6 Last administered on 05/18/17 11:13; Admin Dose 1 TAB; Start 05/14/17 at 10: 30 Morphine Sulfate (morphine) 2 mg Q4H PRN IV PAIN LEVEL 7-10; Start 05/14/17 at 10:30 Heparin Sodium (Porcine) (Heparin (5000 Units/0.5 ml)) 5,000 unit Q8 SC Last administered on 05/18/17 06:02; Admin Dose 5,000 UNIT; Start 05/14/17 at 14:00 Clopidogrel Bisulfate (plaVIX) 75 mg DAILY PO Last administered on 05/18/17 08 :11; Admin Dose 75 MG; Start 05/15/17 at 09:00 Diagnostic Test (Pha) (Accu-Chek) 1 ea 02 XX ; Start 05/15/17 at 02:00 Insulin Glargine (Lantus) 33 unit DAILY@08 SC Last administered on 05/18/17 08 :19; Admin Dose 33 UNIT; Start 05/15/17 at 08:00 Miscellaneous Information 1 ea NOTE XX ; Start 05/14/17 at 10:30 Glucose (Glutose) 15 gm Q15M PRN PO DECREASED GLUCOSE; Start 05/14/17 at 10:30 Glucose (Glutose) 22.5 gm Q15M PRN PO DECREASED GLUCOSE; Start 05/14/17 at 10: 30 Dextrose (D50w Syringe) 25 ml Q15M PRN IV DECREASED GLUCOSE; Start 05/14/17 at 10:30 Dextrose (D50w Syringe) 50 ml Q15M PRN IV DECREASED GLUCOSE; Start 05/14/17 at 10:30 Glucagon (Glucagen) 1 mg Q15M PRN IM DECREASED GLUCOSE; Start 05/14/17 at 10:30 Glucose (Glutose) 15 gm Q15M PRN BUCCAL DECREASED GLUCOSE; Start 05/14/17 at 10 :30 Carvedilol (Coreg) 25 mg BID PO Last administered on 05/17/17 20:25; Admin Dose 25 MG; Start 05/14/17 at 12:30 Isosorbide Dinitrate (Isordil) 20 mg TID PO Last administered on 05/18/17 08: 12; Admin Dose 20 MG; Start 05/14/17 at 13:00 Hydralazine HCl (Apresoline) 10 mg Q4H PRN IV SBP more than 150; Start at 20:00 Atorvastatin Calcium (Lipitor) 40 mg HS PO Last administered on 05/17/17 20:26 ; Admin Dose 40 MG; Start 05/15/17 at 21:00 Hydralazine HCl (Apresoline) 10 mg Q8 PO Last administered on 05/17/17 14:07; Admin Dose 10 MG; Start 05/15/17 at 14:00 Allopurinol (Zyloprim) 100 mg BID PO Last administered on 05/18/17 08:11; Admin Dose 100 MG; Start 05/15/17 at 14:30 MARIE JEFFREY May 18, 2017 12:47
[2017-05-18 14:29] LABS: Allen Test ACCEPTAB; Arterial Base Excess 7.5 mmol/L (-3.0-3); Arterial COHb 0.2 % (0.0-3.0); Arterial Fraction of Oxyhgb 94.2 % (93.0-99.0); Arterial HCO3 32.7 mmol/L (22.0-26.0); Arterial MetHb 0.2 % (0.0-1.5); Arterial Total Hemglobin 13.7 g/dl (12.0-18.0); MODE ROOM AIR
--- NOTE | 2017-05-18 15:26 | PDOCDIS ---
Discharge Instructions DIAGNOSIS Discharge Diagnosis CHF. CONDITION Patient Condition: Stable HOME CARE INSTRUCTIONS: Special Diet: cardiac, ada ACTIVITY: Activity Restrictions: Slowly Increase Activity Rest between Activity FOLLOW UP/APPOINTMENTS Follow-up Plan Kevin Allan MD Specialty: Internal Medicine Office Address: [address] [place], [place] [id number] Office OTHER ORDERS: Other Orders: 1. Take medications as per prescription. 2. Take a carbohydrate controlled, low cholesterol diet. 3. Abstain from tobacco use. 4. Follow-up with your primary care physician 1 week. If you do not have a primary care physician, please call Dr. Kevin Allan's office. 5. Have your primary care physician arrange for outpatient pulmonology follow- up and outpatient polysomnography (sleep study). HANNAH ONOFRE NP May 18, 2017 15:26
[2017-05-18] MEDS ORDERED: LANT3I SC (15:28)
[2017-05-18] MEDS ORDERED: ALLO100T PO (15:28)
[2017-05-18] MEDS ORDERED: FURO40TA4 PO (15:30)
[2017-05-18] MEDS ORDERED: ALBU8.5H3 INH (15:32)
--- NOTE | 2017-05-18 15:42 | DS ---
Date/Time of Note Date/Time of Note DATE: 05/18/17 TIME: 15:39 Discharge Summary Admission/Discharge Info Admit Date/Time May 14, 2017 at 09:05 Discharge Date/Time Discharge Diagnosis 1. Chest pain. ACS ruled out. 2. Acute on chronic CHF exacerbation with systolic dysfunction. 3. Acute on chronic respiratory failure. Hypoxic and hypercapnic. 4. Ischemic cardiomyopathy. 5. CAD with history of coronary stenting and CABG. 6. Chronic kidney disease. 7. Diabetes mellitus type 2. 8. Essential hypertension. 9. Gout. 10. Morbid obesity. 11. Obstructive sleep apnea. 12. Obesity hypoventilation syndrome. Patient Condition: Stable Consults 1. Ronald Grullon DO, Cardiology. 2. Felix Mcneil MD, Pulmonology. 3. Andre Allan MD, Nephrology. 4. Andrey Harris MD, Pulmonology. Procedures Chest CT IMPRESSION: 1. Atelectasis at the lung bases posteriorly with right worse than left. 2. Atherosclerosis. 3. Cardiomegaly. 4. Coronary artery calcification. 5. Previous CABG. Right coronary artery stent. 6. Small bilateral pleural effusions with right larger than left. 7. Mild degenerative changes of the spine. B/L LE Venous Doppler Study IMPRESSION: 1. No evidence of deep vein thrombosis involving either lower extremity. Hx of Present Illness Reason for admission: Chest pain, shortness of breath. Consultants 1. Cardiology. 2. Nephrology. 3. Pulmonary. This is a 51-year-old male with extensive past medical history including CAD status post CABG, obstructive sleep apnea on nocturnal CPAP, chronic kidney disease, diabetes mellitus, pulmonary hypertension, essential hypertension, cardiomyopathy, and morbid obesity who came to the emergency room with chief complaint of chest pain and dyspnea that started from the night of 05/13/2017. The patient verbalized the chest pain as substernal with radiation to the left arm. The patient denied any associated nausea, vomiting, or diaphoresis. Patient verbalized dyspnea with minimal exertion. The patient verbalized bilateral lower extremity edema. The patient denied any fevers, chills, or cough. In the emergency room, the patient was noticed to have a troponin I of 0.149. Patient's chest x-ray showed cardiomegaly with central pulmonary vascular congestion and interstitial prominence in both lungs with blunting of the bilateral costophrenic angles. He was treated with a single dose of aspirin and a single dose of IV Lasix in the emergency room. Hospital Course The patient was noticed to have slightly elevated troponins. However, the patient's troponins trended down lately. The patient's elevated troponins could have been most probably secondary to demand ischemia. The patient was ruled out for any underlying coronary syndrome. Patient has underlying congestive heart failure. The patient's latest 2D echocardiogram showed an ejection fraction of 40%. The patient had evidence of congestive heart failure exacerbation. The patient was adequately diuresed while carefully watching the patient's renal function. The patient has a history of CAD and he is status post coronary stenting and CABG. He was maintained on Plavix. Patient was noticed to have significant respiratory distress on the day of admission. The patient has known history of CO2 narcosis in the past. Hence an ABG was obtained. The ABG showed respiratory acidosis with significant CO2 retention. Consequently, the patient was started on noninvasive positive pressure ventilation. He continued to be lethargic. Hence the patient was brought to the intensive care unit on the day of admission for close monitoring. At one point of time, the patient was prepared to be intubated. However, the patient woke up from his somnolence with noninvasive positive pressure ventilation. The patient was maintained on inhaled bronchodilators. Pulmonology was following the patient. The patient has history of obstructive sleep apnea and the patient was using nocturnal CPAP at home. However, the patient verbalized that his CPAP has been taken away because of unclear reasons. The patient requires outpatient polysomnography for further evaluation of his underlying obstructive sleep apnea and arranging for nocturnal positive pressure ventilation. Although the patient is a smoker, the patient's chest CT scan was negative for any evidence of any emphysema. Patient will be discharged home on a as needed inhaled bronchodilators. He was evaluated for home oxygen therapy with the oxywalk test as well as a room air ABG. However, based on these readings the patient does not qualify for any home oxygen at this time. The patient has a history of chronic kidney disease. The patient was being followed by nephrology. Nephrotoxic drugs were used with caution. Patient has underlying essential hypertension. He was maintained on antihypertensives for the same. The patient also has type 2 diabetes mellitus. The patient's hemoglobin A1c was found to be 8.0. The patient was maintained on sliding scale insulin along with pre-meal insulin and basal insulin with well- controlled blood sugars throughout the hospital course. He also had evidence of gout. The patient was started on allopurinol. The patient was moved out of the intensive care unit on 05/16/2017. The patient remained on telemetry floor until the time of discharge. The patient was cleared by consultants to be discharged home. Discharge Instructions 1. Take medications as per prescription. 2. Take a carbohydrate controlled, low cholesterol diet. 3. Abstain from tobacco use. 4. Follow-up with your primary care physician 1 week. If you do not have a primary care physician, please call Dr. Kevin Allan's office. 5. Have your primary care physician arrange for outpatient pulmonology follow- up and outpatient polysomnography (sleep study). The patient verbalized understanding of his discharge instructions. At this time I would like to thank all the consultants for seeing the patient and providing clinical recommendations. Case discussed with Dr. Steinberg. Home Meds Active Scripts Albuterol Sulfate* (Proair HFA*) 8.5 Gm Hfa.aer.ad, 2 PUFF INH Q4H Y for WHEEZING AND SOB, #1 INHALER Prov:HANNAH ONOFRE NP 05/18/17 Furosemide* (Furosemide*) 40 Mg Tablet, 40 MG PO BID, #60 TAB Prov:HANNAH ONOFRE NP 05/18/17 Allopurinol* (Allopurinol*) 100 Mg Tablet, 100 MG PO BID, #60 TAB Prov:HANNAH ONOFRE NP 05/18/17 Insulin Glargine* (Lantus*) 100 Unit/Ml Soln, 33 UNIT SC DAILY@08, #30 UNIT Prov:HANNAH ONOFRE NP 05/18/17 Isosorbide Dinitrate* (Isordil*) 10 Mg Tablet, 20 MG PO TID, #90 TAB 3 Refills Prov:CHOCO MONTOYA 04/14/17 Reported Medications Carvedilol* (Carvedilol*) 25 Mg Tablet, 25 MG PO BID, #60 TAB 03/19/17 Clopidogrel Bisulfate (Clopidogrel) 75 Mg Tablet, 75 MG PO DAILY, #30 TAB 03/19/17 Glipizide* (Glipizide*) 5 Mg Tablet, 5 MG PO AC BREAKFAST DINNER, TAB 03/19/17 Discontinued Reported Medications Hydralazine Hcl* (Hydralazine Hcl*) 25 Mg Tab, 25 MG PO Q8 Y for PRN, #90 TAB 03/19/17 [Isosorbide] No Conflict Check, 1 TAB PO BID 03/19/17 Discontinued Scripts Insulin Glargine* (Lantus*) 100 Unit/Ml Soln, 20 UNIT SC DAILY@08, #1 2 Refills Prov:RAPILAR MIRANDAEEP S. 04/14/17 Furosemide* (Furosemide*) 40 Mg Tablet, 40 MG PO DAILY, #60 TAB 3 Refills Prov:RAHI,CHOCO S. 04/14/17 Prednisone* (Prednisone*) 20 Mg Tab, 40 MG PO DAILY for 2 Days, #4 TAB Prov:RATOÑO MIRANDAP S. 04/14/17 [Nicotine (14 Mg/24 Hr)] 1 PATCH PATCH No Conflict Check, 1 PATCH TRANSDERM DAILY, #30 2 Refills Prov:CHOCO MONTOYA S. 04/14/17 Follow-up Plan Kevin Allan MD Specialty: Internal Medicine Office Address: [address] [place] [address] Office Primary Care Provider Not On Staff Doctor Time spent on discharge: > 30 minutes Pending Labs Laboratory Tests Test 05/17/17 17:09 05/17/17 20:16 05/18/17 02:03 05/18/17 05:59 Bedside Glucose 89mg/dL (70-220) 174mg/dL (70-220) 194mg/dL (70-220) Phosphorus Level 5.1mg/dl (2.5-4.9) Magnesium Level 1.9mg/dl (1.7-2.5) Test 05/18/17 06:02 05/18/17 08:09 05/18/17 11:30 05/18/17 11:50 White Blood Count 6.710^3/ul (4.8-10.8) Red Blood Count 4.2910^6/ul (4.70-6.10) Hemoglobin 12.0g/dl (14.0-18.0) Hematocrit 39.2% (42.0-52.0) Mean Corpuscular Volume 91.4fl (82.0-101.0) Mean Corpuscular Hemoglobin 28.0pg (29.0-33.0) Mean Corpuscular Hemoglobin Concent 30.6g/dl (32.0-37.0) Red Cell Distribution Width 14.0% (11.5-14.5) Platelet Count 55861^3/UL (140-415) Mean Platelet Volume 11.3fl (7.4-10.4) Neutrophils % 63.8% (39.0-77.0) Lymphocytes % 24.0% (15.0-51.0) Monocytes % 7.5% (0.0-11.0) Eosinophils % 3.3% (0.0-7.0) Basophils % 1.3% (0.0-2.0) Nucleated Red Blood Cells % 0.0/100WBC (0.0-0.0) Neutrophils # 4.310^3/ul (1.6-7.5) Lymphocytes # 1.610^3/ul (0.8-2.9) Monocytes # 0.510^3/ul (0.3-0.9) Eosinophils # 0.210^3/ul (0.0-0.5) Basophils # 0.110^3/ul (0.0-0.1) Nucleated Red Blood Cells # 0.010^3/ul (0.0-0.0) Sodium Level 141mmol/L (135-144) Potassium Level 3.9mmol/L (3.5-5.1) Chloride Level 102mmol/L (97-110) Carbon Dioxide Level 32mmol/L (21-31) Anion Gap 11 (8-16) Blood Urea Nitrogen 39mg/dl (7-20) Creatinine 2.92mg/dl (0.61-1.24) Glucose Level 104mg/dl (70-220) Calcium Level 8.1mg/dl (8.4-10.2) Bedside Glucose 119mg/dL (70-220) 295mg/dL (70-220) Blood Gas Specimen Source Blood arterial Arterial Blood Date Drawn 05/18/2017 2:17:41 PM Arterial Blood pH (Temp corrected) 7.448 (7.350-7.450) Arterial Blood pCO2 (Temp correct) 48.4mmhg (35-45) Arterial Blood pO2 (Temp corrected) 66.8mmHG (80-100.0) Arterial Blood HCO3 32.7mmol/L (22.0-26.0) Arterial Blood Base Excess 7.5mmol/L (-3.0-3) Arterial Blood Oxygen Saturation 94.6mmHG (95.0-98.0) Luis Armando Test ACCEPTAB Arterial Blood Gas Puncture Site Right Radial Arterial Blood Carboxyhemoglobin 0.2% (0.0-3.0) Arterial Blood Methemoglobin 0.2% (0.0-1.5) Blood Gas A-a O2 Differential 25.0mmHg (7.0-24.0) Oxyhemoglobin Percent 94.2% (93.0-99.0) Total Hemoglobin 13.7g/dl (12.0-18.0) Blood Gas Temperature 37.0C Blood Gas Modality ROOM AIR FiO2 21.0% Blood Gas Notified Whom R H Blood Gas Notified Time 05/18/2017 2:28:44 PM HANNAH ONOFRE NP May 18, 2017 15:42
--- NOTE | 2017-05-18 19:45 | CONS ---
Date/Time of Note Date/Time of Note DATE: 05/18/17 TIME: 19:45 Assessment/Plan Assessment/Plan Additional Assessment/Plan 1. Acute kidney injury on CKD III due to cardiorenal syndrome 2. Acute on chronic CHF exacerbation 3. Acute hypercapnic and hypoxic resp failure, acute on chronic- on BIPAP 4. H/O CKD III 5. DONALD 6. H/o CAD S/p CABG 7. H/o COPD 8. H/o CHF 9. Hyperuricemia with uric acid 12.8 Plan : d/c plan today with lasix 40mg pO BID Cr 3.06, conitnue allopurinol 100mg PO BID for hyperuricemia Strict I/O renally dose all antibiotics will follow up Consultation Date/Type/Reason Admit Date/Time May 14, 2017 at 09:05 Initial Consult Date 05/14/17 Type of Consultation: NEPHROLGOY Referring Provider: HANNAH ONOFRE NP 24 HR Interval Summary Free Text/Dictation pt was seen in AM Exam/Review of Systems Vital Signs Vitals Vital Signs Date Time Temp Pulse Resp B/P Pulse Ox O2 Delivery O2 Flow Rate FiO2 05/18/17 16:26 97.5 67 18 121/69 91 05/18/17 15:35 4.0 05/18/17 14:38 21 05/17/17 21:11 Nasal Cannula Intake and Output 05/17/17 05/17/17 05/18/17 15:00 23:00 07:00 Intake Total 740 ml 450 ml Output Total 900 ml 650 ml Balance -160 ml -200 ml Results Result Diagram: 05/18/17 0602 05/18/17 0602 Results 24 hrs Laboratory Tests Test 05/17/17 20:16 05/18/17 02:03 05/18/17 05:59 05/18/17 06:02 Bedside Glucose 174 194 Phosphorus Level 5.1 H Magnesium Level 1.9 White Blood Count 6.7 Red Blood Count 4.29 L Hemoglobin 12.0 L Hematocrit 39.2 L Mean Corpuscular Volume 91.4 Mean Corpuscular Hemoglobin 28.0 L Mean Corpuscular Hemoglobin Concent 30.6 L Red Cell Distribution Width 14.0 Platelet Count 178 Mean Platelet Volume 11.3 H Neutrophils % 63.8 Lymphocytes % 24.0 Monocytes % 7.5 Eosinophils % 3.3 Basophils % 1.3 Nucleated Red Blood Cells % 0.0 Neutrophils # 4.3 Lymphocytes # 1.6 Monocytes # 0.5 Eosinophils # 0.2 Basophils # 0.1 Nucleated Red Blood Cells # 0.0 Sodium Level 141 Potassium Level 3.9 Chloride Level 102 Carbon Dioxide Level 32 H Anion Gap 11 Blood Urea Nitrogen 39 H Creatinine 2.92 H Glucose Level 104 Calcium Level 8.1 L Test 05/18/17 08:09 05/18/17 11:30 05/18/17 11:50 Bedside Glucose 119 295 H Blood Gas Specimen Source Blood arterial Arterial Blood Date Drawn 05/18/2017 2:17:41 PM Arterial Blood pH (Temp corrected) 7.448 Arterial Blood pCO2 (Temp correct) 48.4 H Arterial Blood pO2 (Temp corrected) 66.8 L Arterial Blood HCO3 32.7 H Arterial Blood Base Excess 7.5 H Arterial Blood Oxygen Saturation 94.6 L Luis Armando Test ACCEPTAB Arterial Blood Gas Puncture Site Right Radial Arterial Blood Carboxyhemoglobin 0.2 Arterial Blood Methemoglobin 0.2 Blood Gas A-a O2 Differential 25.0 H Oxyhemoglobin Percent 94.2 Total Hemoglobin 13.7 Blood Gas Temperature 37.0 Blood Gas Modality ROOM AIR FiO2 21.0 Blood Gas Notified Whom R H Blood Gas Notified Time 05/18/2017 2:28:44 PM ARELI FRANKLIN MD May 18, 2017 19:45
== END 2017-05-18 16:10 | disposition home or self-care (01) | DRG 291 ==
LOC: E/R 06:34 → MS4 09:05 → ICU 11:16 → TEL 05-16 11:41
PROVIDERS: ADMIT Internal Medicine; ATTEND Internal Medicine
DX: I13.0 Hypertensive heart and chronic kidney disease with heart failure and stage 1 through stage 4 chronic kidney disease, or unspecified chronic kidney disease (principal); I50.23 Acute on chronic systolic (congestive) heart failure; J96.21 Acute and chronic respiratory failure with hypoxia; I47.2 Ventricular tachycardia; I27.2 Other secondary pulmonary hypertension; N17.9 Acute kidney failure, unspecified; Z68.41 Body mass index [BMI] 40.0-44.9, adult; E11.22 Type 2 diabetes mellitus with diabetic chronic kidney disease; N18.3 Chronic kidney disease, stage 3 (moderate); E66.2 Morbid (severe) obesity with alveolar hypoventilation; J96.22 Acute and chronic respiratory failure with hypercapnia; J44.1 Chronic obstructive pulmonary disease with (acute) exacerbation; I24.8 Other forms of acute ischemic heart disease; I42.9 Cardiomyopathy, unspecified; I25.10 Atherosclerotic heart disease of native coronary artery without angina pectoris; Z95.1 Presence of aortocoronary bypass graft; G47.33 Obstructive sleep apnea (adult) (pediatric); Z72.0 Tobacco use; M10.9 Gout, unspecified
CPT/HCPCS: 36415; 36600; 71010; 71250; 80048; 80053; 81003; 82550; 82553; 82570; 82803; 82962; 83036; 83735; 83880; 84100; 84300; 84439; 84443; 84484; 84560; 85025; 87081; 89190; 93005; 93970; 94640; 94660; 94664; 96374; J1940; J0360; J1644; J1815; J3475; P9047

== ENCOUNTER 2017-05-24 18:00 | Inpatient (IN) | payer OTHER ==
[~2017-05-24] VITALS: Ht 180.3 cm; Wt 132.4 kg
[~2017-05-24 18:00] MED LIST changes: +ALBU8.5H3 INH; +ALLO100T PO; -HYDR-3671 PO; -ISOSORBIDE PO; -Nicotine (14 Mg/24 Hr) TRANSDERM; -PRED20TA PO
[2017-05-24] MEDS ORDERED: NITROGLYCERIN 2% 1 GM OINT PKT TD STA (18:43)
[2017-05-24] MEDS ORDERED: ASPIRIN 81 MG TAB PO STA (18:43)
[2017-05-24] MEDS ORDERED: NITROGLYCERIN (SL) 0.4 MG TAB SL PRN ×2 (19:00→22:00)
[2017-05-24 19:26] LABS: BASOPHIL # 0.1 10^3/ul (0.0-0.1); EOSINOPHILS # 0.3 10^3/ul (0.0-0.5); EOSINOPHILS % 3.9 % (0.0-7.0); HEMATOCRIT 40.8 % (42.0-52.0); LYMPHOCYTES # 2.1 10^3/ul (0.8-2.9); LYMPHOCYTES % 24.5 % (15.0-51.0); MEAN CORPUSCULAR HEMOGLOBIN 28.6 pg (29.0-33.0); MEAN CORPUSCULAR HGB CONC 31.9 g/dl (32.0-37.0); MEAN CORPUSCULAR VOLUME 89.7 fl (82.0-101.0); MEAN PLATELET VOLUME 12.3 fl (7.4-10.4); MONOCYTE # 0.5 10^3/ul (0.3-0.9); MONOCYTES % 5.7 % (0.0-11.0); NEUTROPHIL # 5.6 10^3/ul (1.6-7.5); NEUTROPHILS % 64.7 % (39.0-77.0); PLATELET COUNT 192 10^3/UL (140-415); RED BLOOD COUNT 4.55 10^6/ul (4.70-6.10); RED CELL DISTRIBUTION WIDTH 14.3 % (11.5-14.5); WHITE BLOOD COUNT 8.7 10^3/ul (4.8-10.8)
[2017-05-24 19:57] LABS: CALCIUM 8.4 mg/dl (8.4-10.2); CREATININE 3.44 mg/dl (0.61-1.24); POTASSIUM 4.6 mmol/L (3.5-5.1)
[2017-05-24 20:08] LABS: TROPONIN-I 0.076 ng/ml (0.00-0.12)
[2017-05-24] MEDS ORDERED: ACETAMINOPHEN 325 MG TAB PO PRN (20:30)
[2017-05-24] MEDS ORDERED: ONDANSETRON 4 MG INJ IV PRN (20:30)
[2017-05-24 20:33] VITALS: TEMP 99.8
--- NOTE | 2017-05-24 20:36 | RADRPT ---
PROCEDURE: XR Chest. CLINICAL INDICATION: Chest pain. TECHNIQUE: Portable AP semi erect view of the chest was obtained. COMPARISON: 05/16/2017 FINDINGS: The cardiomediastinal silhouette remains markedly enlarged. Mild pulmonary vascular congestion seen previously has decreased but has not resolved. Small bilateral pleural effusions are suspected gre ater on the left. Left basilar subsegmental atelectasis is unchanged. There is no evidence of pneumo thorax. Sternotomy wires are again seen without evidence of acute osseous abnormality. RPTAT:HJJR IMPRESSION: 1. Stable marked cardiac silhouette enlargement and chronic congestive heart failure pattern in this patient is status post thoracotomy. 2. Left greater than right pleural effusions with associated compressive atelectasis and vertically of the left lower lobe, findings unchanged. Physician Narendra Date Time Electronically viewed and signed by Physician Narendra on 05/24/2017 20:36 /
[2017-05-24 21:00] VITALS: BP 156/100; PULSE 71; RESP 18
[2017-05-24] MEDS ORDERED: ALBUTEROL 18 GM INHALER INH PRN (22:00)
[2017-05-24] MEDS ORDERED: morphine 4 MG/ML VIAL IV PRN (22:00)
[2017-05-24] MEDS ORDERED: hydrALAzine 20 MG INJ IV PRN (22:00)
[2017-05-24] MEDS ORDERED: GLUCOSE GEL 15 GRAM TUBE PO PRN ×2 (22:00)
[2017-05-24] MEDS: FUROSEMIDE 40 MG TAB PO SCH (22:00)
[2017-05-24] MEDS ORDERED: DEXTROSE 50% 50 ML SYRINGE IV PRN ×2 (22:00)
[2017-05-24] MEDS ORDERED: GLUCOSE GEL 15 GRAM TUBE BUCCAL PRN (22:00)
[2017-05-24] MEDS ORDERED: GLUCAGON 1 MG INJ IM PRN (22:00)
--- NOTE | 2017-05-24 22:04 | ERA ---
ER Documentation Chief Complaint Date/Time DATE: 05/24/17 TIME: 22:02 Chief Complaint Complains of SOB Hx of COPD HPI Patient is a 51-year-old male with coronary disease, hypertension, and diabetes who presents with chest pain and shortness of breath. The patient says that he is having shortness of breath with walking 4-5 steps. Shortness of breath that started this morning. He was recently admitted for an NSTEMI but he did not get a cardiac catheterization done at that time. He has had no treatment as of yet. Upon review of old medical records this is the patient's fourth visit to the ER since February 2017. He says that he does not currently have a primary doctor. ROS All systems reviewed and are negative except as per history of present illness. Medications Home Meds Active Scripts Albuterol Sulfate* (Proair HFA*) 8.5 Gm Hfa.aer.ad, 2 PUFF INH Q4H Y for WHEEZING AND SOB, #1 INHALER Prov:HANNAH ONOFRE NP 05/18/17 Furosemide* (Furosemide*) 40 Mg Tablet, 40 MG PO BID, #60 TAB Prov:HANNAH ONOFRE NP 05/18/17 Allopurinol* (Allopurinol*) 100 Mg Tablet, 100 MG PO BID, #60 TAB Prov:HANNAH ONOFRE NP 05/18/17 Insulin Glargine* (Lantus*) 100 Unit/Ml Soln, 33 UNIT SC DAILY@08, #30 UNIT Prov:HANNAH ONOFRE NP 05/18/17 Isosorbide Dinitrate* (Isordil*) 10 Mg Tablet, 20 MG PO TID, #90 TAB 3 Refills Prov:CHOCO MONTOYA 04/14/17 Reported Medications Carvedilol* (Carvedilol*) 25 Mg Tablet, 25 MG PO BID, #60 TAB 03/19/17 Clopidogrel Bisulfate (Clopidogrel) 75 Mg Tablet, 75 MG PO DAILY, #30 TAB 03/19/17 Glipizide* (Glipizide*) 5 Mg Tablet, 5 MG PO AC BREAKFAST DINNER, TAB 03/19/17 Discontinued Reported Medications Hydralazine Hcl* (Hydralazine Hcl*) 25 Mg Tab, 25 MG PO Q8 Y for PRN, #90 TAB 03/19/17 Discontinued Scripts Insulin Glargine* (Lantus*) 100 Unit/Ml Soln, 20 UNIT SC DAILY@08, #1 2 Refills Prov:RAHI,CHOCO S. 04/14/17 Furosemide* (Furosemide*) 40 Mg Tablet, 40 MG PO DAILY, #60 TAB 3 Refills Prov:RAHI,CHOCO S. 04/14/17 Allergies Allergies: Coded Allergies: No Known Allergy (Unverified , 05/15/17) PMhx/Soc History of Surgery: Yes (CAD s/p CABG 2011) Anesthesia Reaction: No Hx Neurological Disorder: No Hx Respiratory Disorders: Yes (COPD) Hx Cardiac Disorders: Yes (CHF, CAD, HTN) Hx Psychiatric Problems: No Hx Miscellaneous Medical Probl: Yes (HTN, NOCTURNAL CPAP, DM2) Hx Alcohol Use: Yes (NO ALCOHOL SINCE 2011) Hx Substance Use: No Hx Tobacco Use: Yes Smoking Status: Current some day smoker FmHx Family History: coronary disease Physical Exam Vitals Vital Signs Date Time Temp Pulse Resp B/P Pulse Ox O2 Delivery O2 Flow Rate FiO2 05/24/17 18:57 Nasal Cannula 2 05/24/17 18:57 99.8 73 23 51/100 97 Nasal Cannula 2.0 05/24/17 18:57 Nasal Cannula 2.0 05/24/17 18:06 99.0 82 20 139/89 89 Physical Exam Const: Mild distress Head: Atraumatic Eyes: Normal Conjunctiva ENT: Normal External Ears, Nose and Mouth. Neck: Full range of motion..~ No meningismus. Resp: Clear to auscultation bilaterally Cardio: Regular rate and rhythm, no murmurs Abd: Soft, non tender, non distended. Normal bowel sounds Skin: No petechiae or rashes Back: No midline or flank tenderness Ext: No cyanosis, or edema Neur: Awake and alert Psych: Normal Mood and Affect Result Diagram: 05/24/17190405/24/171904 Results 24 hrs Laboratory Tests Test 05/24/17 19:05 White Blood Count 8.710^3/ul Red Blood Count 4.5510^6/ul Hemoglobin 13.0g/dl Hematocrit 40.8% Mean Corpuscular Volume 89.7fl Mean Corpuscular Hemoglobin 28.6pg Mean Corpuscular Hemoglobin Concent 31.9g/dl Red Cell Distribution Width 14.3% Platelet Count 57720^3/UL Mean Platelet Volume 12.3fl Neutrophils % 64.7% Lymphocytes % 24.5% Monocytes % 5.7% Eosinophils % 3.9% Basophils % 1.0% Nucleated Red Blood Cells % 0.0/100WBC Neutrophils # 5.610^3/ul Lymphocytes # 2.110^3/ul Monocytes # 0.510^3/ul Eosinophils # 0.310^3/ul Basophils # 0.110^3/ul Nucleated Red Blood Cells # 0.010^3/ul Sodium Level 139mmol/L Potassium Level 4.6mmol/L Chloride Level 105mmol/L Carbon Dioxide Level 29mmol/L Anion Gap 10 Blood Urea Nitrogen 45mg/dl Creatinine 3.44mg/dl Glucose Level 110mg/dl Calcium Level 8.4mg/dl Troponin I 0.076ng/ml Current Medications Medications (Trade) Dose Ordered Sig/Chi Route PRN Reason Start Time Stop Time Status Last Admin Dose Admin Aspirin (Aspirin) 162 mg ONCE STAT PO 05/24/17 18:43 05/24/17 18:44 DC 05/24/17 18:43 Nitroglycerin (Nitroglycerin 2% Oint) 1 inch ONCE STAT TD 05/24/17 18:43 05/24/17 18:44 DC 05/24/17 19:55 Nitroglycerin (Nitroglycerin (Sl Tab) 0.4 Mg) 1 tab Q5M UP TO 3 DOSES PRN SL CHEST PAIN 05/24/17 19:00 Procedures/MDM EKG #1 read by me: Rate/Rhythm: Regular rate and rhythm at a normal rate Intervals: Normal Impression: Diffuse flipped T waves EKG #2 read by me: Rate/Rhythm: Regular rate and rhythm at a normal rate Intervals: Normal Impression: Diffuse flipped T waves Chest x-ray shows no pneumonia or pneumothorax per radiology. Smoking Cessation Therapy: Pt. was lectured for greater than 3 minutes on the health risks of continued smoking and the benefits of cessation. Patient is a 51-year-old male with multiple cardiac risk factors who presents with chest pain. I am concerned about acute coronary syndrome. He will need readmission to the hospital. He may require cardiac catheterization at this time. I doubt pneumonia, pneumothorax, pulmonary embolism, or aortic dissection. Departure Diagnosis: Primary Impression: Chest pain Qualified Code: R07.9 - Chest pain, unspecified type Additional Impression: Shortness of breath Condition: ERIBERTO Burris MD May 24, 2017 22:04
[2017-05-24 22:26] VITALS: Ht 180.3 cm; Wt 132.4 kg
[2017-05-24] MEDS: ALLOPURINOL 100 MG TAB PO SCH (22:26)
[2017-05-24] MEDS: ISOSORBIDE DINITRATE 10 MG TAB PO SCH (22:27)
[2017-05-24] MEDS ORDERED: ALBUTEROL/IPRATROPIUM (NEB) 3 ML AMP HHN PRN (22:30)
[2017-05-24 23:31] VITALS: PULSE 61
[2017-05-24 23:34] VITALS: BP 115/63; RESP 20
[2017-05-25] VITALS (18 sets, daily range): BP systolic 118–165; BP diastolic 71–85; PULSE 55–71; RESP 18–24
[2017-05-25] MEDS: ACCU-CHEK XX SCH (02:00)
[2017-05-25] MEDS ORDERED: ACCU-CHEK XX SCH (02:00)
[2017-05-25 02:13] LABS: TROPONIN-I 0.091 ng/ml (0.00-0.12)
[2017-05-25 02:15] LABS: CK-MB 2.08 ng/ml (0.0-2.4)
--- NOTE | 2017-05-25 04:59 | HP ---
Date/Time of Note Date/Time of Note DATE: 05/25/17 TIME: 04:50 Assessment/Plan VTE Prophylaxis VTE Prophylaxis Intervention: SCD's Lines/Catheters IV Catheter Type (from Nrsg): Peripheral IV Assessment/Plan Assessment/Plan ASSESSMENT 51-year-old morbidly obese male with BMI of almost 41, with history of hypertension, CAD with stent, CABG, ischemic cardiomyopathy with a decreased systolic function was EF of 40%, CKD, DONALD here with exertional chest pain and shortness of breath PLAN Continue telemetry monitoring Supplemental oxygen, antiplatelet, statin, beta-maritza, ACEI, as needed nitro morphine Breathing treatments as needed V/Q scan to rule out PE. We will also order lower extremity venous study to evaluate for DVT and a d-dimer Cardiology consult Nephrology consult to help manage his CKD Weight reduction advised HPI/ROS Admit Date/Time Admit Date/Time May 24, 2017 at 20:02 Hx of Present Illness This is a 51-year-old morbidly obese male with BMI of almost 41, with history of hypertension, CAD with stent, CABG, ischemic cardiomyopathy with a decreased systolic function was EF of 40%, CKD, DONALD. He presented to the ER complaining of chest pain and shortness of breath. Chest pain is left-sided with associated SOB. Chest pain and shortness of breath are worse with exertion. He was admitted here recently and was discharged a week ago after he presented with chest pain. At that time he had 3 negative troponins. 2D echo showed an EF of 40%. There was no cardiac intervention at that time. He said he has been compliant with his medications. When he came to the ER, he was initially hypoxic with O2 sat of 89%. So far 2 troponins are negative. EKG was no ST-T wave abnormalities. Chest x-ray shows Stable marked cardiac silhouette enlargement and chronic congestive heart failure pattern in this patient is status post thoracotomy and Left greater than right pleural effusions with associated compressive atelectasis and vertically of the left lower lobe, findings unchanged. PMH/Family/Social Past Medical History hypertension, CAD with stent, CABG, ischemic cardiomyopathy with a decreased systolic function was EF of 40%, CKD, DONALD. Past Surgical History Past Surgical Hx: coronary bypass surgery Social History Alcohol Use: none Smoking Status: Current some day smoker Drug Use: none Exam/Review of Systems Vital Signs Vitals Vital Signs Date Time Temp Pulse Resp B/P Pulse Ox O2 Delivery O2 Flow Rate FiO2 05/25/17 04:25 55 05/25/17 03:31 98.1 20 132/82 96 05/25/17 03:15 40 05/24/17 22:48 3.0 05/24/17 22:47 Nasal Cannula Intake and Output 05/24/17 05/24/17 05/25/17 15:00 23:00 07:00 Intake Total 480 ml Balance 480 ml Exam Constitutional: other (Obese male lying in bed in no acute distress) Head: atraumatic, normocephalic Eyes: EOMI, PERRL Respiratory: diminished breath sounds Cardiovascular: nl pulses, regular rate and rhythm Gastrointestinal: non-tender, soft Extremities: normal pulses Labs Result Diagram: 05/24/17190405/24/171904 Medications Medications Current Medications Hydralazine HCl (Apresoline) 10 mg Q4H PRN IV SBP ABOVE 160; Start 05/24/17 at 22:00 Nitroglycerin (Nitroglycerin (Sl Tab) 0.4 Mg) 1 tab Q5M PRN SL ANGINA; Start at 22:00 Morphine Sulfate (morphine) 3 mg Q4H PRN IV PAIN; Start 05/24/17 at 22:00 Allopurinol (Zyloprim) 100 mg BID PO Last administered on 05/24/17 22:26; Admin Dose 100 MG; Start 05/24/17 at 22:00 Carvedilol (Coreg) 25 mg BID PO Last administered on 05/24/17 22:27; Admin Dose 25 MG; Start 05/24/17 at 22:00 Clopidogrel Bisulfate (plaVIX) 75 mg DAILY PO ; Start 05/25/17 at 09:00 Insulin Glargine (Lantus) 33 unit DAILY@08 SC ; Start 05/25/17 at 08:00 Isosorbide Dinitrate (Isordil) 20 mg TID PO Last administered on 05/24/17 22: 27; Admin Dose 20 MG; Start 05/24/17 at 22:00 Diagnostic Test (Pha) (Accu-Chek) 1 ea 02 XX ; Start 05/25/17 at 02:00 Miscellaneous Information 1 ea NOTE XX ; Start 05/24/17 at 22:00 Glucose (Glutose) 15 gm Q15M PRN PO DECREASED GLUCOSE; Start 05/24/17 at 22:00 Glucose (Glutose) 22.5 gm Q15M PRN PO DECREASED GLUCOSE; Start 05/24/17 at 22: 00 Dextrose (D50w Syringe) 25 ml Q15M PRN IV DECREASED GLUCOSE; Start 05/24/17 at 22:00 Dextrose (D50w Syringe) 50 ml Q15M PRN IV DECREASED GLUCOSE; Start 05/24/17 at 22:00 Glucagon (Glucagen) 1 mg Q15M PRN IM DECREASED GLUCOSE; Start 05/24/17 at 22:00 Glucose (Glutose) 15 gm Q15M PRN BUCCAL DECREASED GLUCOSE; Start 05/24/17 at 22 :00 Influenza Virus Vaccine (Fluzone) 0.5 ml ONCE ONCE IM* ; Start 05/26/17 at 09:00 ; Stop 05/26/17 at 09:01 PAYAM LINDER MD May 25, 2017 04:59
[2017-05-25] MEDS: FUROSEMIDE 40 MG TAB PO SCH (06:14)
[2017-05-25 06:50] LABS: BASOPHIL # 0.1 10^3/ul (0.0-0.1); BASOPHILS % 1.6 % (0.0-2.0); EOSINOPHILS # 0.2 10^3/ul (0.0-0.5); EOSINOPHILS % 3.5 % (0.0-7.0); HEMOGLOBIN 11.9 g/dl (14.0-18.0); LYMPHOCYTES # 1.7 10^3/ul (0.8-2.9); LYMPHOCYTES % 24.8 % (15.0-51.0); MEAN CORPUSCULAR HEMOGLOBIN 27.7 pg (29.0-33.0); MEAN CORPUSCULAR HGB CONC 30.5 g/dl (32.0-37.0); MEAN CORPUSCULAR VOLUME 90.9 fl (82.0-101.0); MEAN PLATELET VOLUME 11.8 fl (7.4-10.4); MONOCYTE # 0.4 10^3/ul (0.3-0.9); MONOCYTES % 5.7 % (0.0-11.0); NEUTROPHIL # 4.4 10^3/ul (1.6-7.5); NEUTROPHILS % 64.3 % (39.0-77.0); PLATELET COUNT 194 10^3/UL (140-415); RED BLOOD COUNT 4.29 10^6/ul (4.70-6.10); RED CELL DISTRIBUTION WIDTH 14.8 % (11.5-14.5); WHITE BLOOD COUNT 6.9 10^3/ul (4.8-10.8)
[2017-05-25 07:14] LABS: D-DIMER 1351.37 ng/ml (<460)
[2017-05-25 07:14] LABS: ALBUMIN 2.7 g/dl (3.3-4.9); ALBUMIN/GLOBULIN RATIO 1.17; BILIRUBIN,INDIRECT 0.1 mg/dl (0-1.1); BILIRUBIN,TOTAL 0.1 mg/dl (0.2-1.3); CALCIUM 8.2 mg/dl (8.4-10.2); CHOL/HDL RATIO 7.4 RATIO; CREATININE 3.41 mg/dl (0.61-1.24); POTASSIUM 4.7 mmol/L (3.5-5.1)
[2017-05-25 07:25] LABS: TROPONIN-I 0.084 ng/ml (0.00-0.12)
[2017-05-25 07:32] LABS: CK-MB 1.92 ng/ml (0.0-2.4)
[2017-05-25] MEDS ORDERED: FUROSEMIDE 40 MG TAB PO SCH (08:00)
--- NOTE | 2017-05-25 08:10 | RADRPT ---
PROCEDURE: Ultrasound examination of bilateral lower extremities veins with Doppler. CLINICAL INDICATION: Leg pain and swelling, shortness of breath. TECHNIQUE: Multiple sonographic images of bilateral lower extremity venous systems were performed with crews scale and color Doppler. COMPARISON: 05/14/2017. FINDINGS: Bilateral common femoral, superficial femoral and popliteal veins demonstrate normal color flow, wav eforms, compression and response to augmentation. There is no evidence of deep venous thrombosis. IMPRESSION: No evidence of deep venous thrombosis within bilateral lower extremities. .Kaveh Clark MD, MD Date Time Electronically viewed and signed by .Kaveh Clark MD, on 05/25/2017 08:10 .T/
[2017-05-25] MEDS: CLOPIDOGREL 75 MG TAB PO SCH (08:18)
[2017-05-25] MEDS: ALLOPURINOL 100 MG TAB PO SCH ×2 (08:19→20:18)
[2017-05-25] MEDS: ISOSORBIDE DINITRATE 10 MG TAB PO SCH ×3 (08:19→20:19)
[2017-05-25] MEDS: INSULIN ASPART [NOVOLOG] 3 ML PEN SC SCH ×4 (08:21→20:19)
[2017-05-25] MEDS: INSULIN GLARGINE [LANtus] 3 ML PEN SC SCH (08:22)
[2017-05-25] MEDS: FUROSEMIDE 100 MG INJ IV SCH ×2 (11:27→18:18)
--- NOTE | 2017-05-25 14:35 | PN ---
Date/Time of Note Date/Time of Note DATE: 05/25/17 TIME: 14:30 Assessment/Plan VTE Prophylaxis VTE Prophylaxis Intervention: LMWH Lines/Catheters IV Catheter Type (from Nrs): Peripheral IV Assessment/Plan Chief Complaint/Hosp Course 51 yo male with h/o obestiy, CAD s/p CABG, systolic CHF chrnoic, CKD IV who presetns with acute systoilc CHF exacerbation Acute systolic CHF exacerbation: - Continue lasix 100 IV BID, lots of fluid to diurese - Cont Coreg 25 BID - Hold RADHA given CKD CAD - Contniue plavix, isodril, statin CKD IV: - suspect 2/2 DM, hypoalbuminemia suspicious for nephrotic proteinuria - 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 a information analyst DMII: - Basal bolus insulin Obesity: - Counseled on improtance of weight loss D-dimer: - DVT scan negative, await V/Q though has clear altenrative etiology of resripatory failure Dispo to self care when euvolemic Problems: Subjective 24 Hr Interval Summary Free Text/Dictation Lasix increased to 100 IV BID Says breathing slightly improved since arrival Feels this is consistent with CHF as previuosly has had Still w orthopena though seems chronic Exam/Review of Systems Vital Signs Vitals Vital Signs Date Time Temp Pulse Resp B/P Pulse Ox O2 Delivery O2 Flow Rate FiO2 05/25/17 12:32 59 05/25/17 11:16 97.8 21 118/71 93 05/25/17 09:36 40 05/24/17 22:48 3.0 05/24/17 22:47 Nasal Cannula Intake and Output 05/24/17 05/24/17 05/25/17 15:00 23:00 07:00 Intake Total 480 ml Balance 480 ml Exam ++++ JVD Obese RRR Clear lugns Chronic venosu statis changes on legs b/l Mild pitting edema to ankles Results Result Diagram: 05/25/17 0626 05/25/17 0627 Results 24 hrs Laboratory Tests Test 05/24/17 19:05 05/24/17 22:25 05/25/17 00:38 05/25/17 06:23 White Blood Count 8.7 # Red Blood Count 4.55 L Hemoglobin 13.0 L Hematocrit 40.8 L Mean Corpuscular Volume 89.7 Mean Corpuscular Hemoglobin 28.6 L Mean Corpuscular Hemoglobin Concent 31.9 L Red Cell Distribution Width 14.3 Platelet Count 192 Mean Platelet Volume 12.3 H Neutrophils % 64.7 Lymphocytes % 24.5 Monocytes % 5.7 Eosinophils % 3.9 Basophils % 1.0 Nucleated Red Blood Cells % 0.0 Neutrophils # 5.6 Lymphocytes # 2.1 Monocytes # 0.5 Eosinophils # 0.3 Basophils # 0.1 Nucleated Red Blood Cells # 0.0 Sodium Level 139 Potassium Level 4.6 Chloride Level 105 Carbon Dioxide Level 29 Anion Gap 10 Blood Urea Nitrogen 45 H Creatinine 3.44 H Glucose Level 110 Calcium Level 8.4 Troponin I 0.076 0.091 Bedside Glucose 99 Creatine Kinase 67 Creatine Kinase Index 3.1 Creatinine Kinase MB (Mass) 2.08 Hemoglobin A1c 7.6 H Test 05/25/17 06:26 05/25/17 06:27 05/25/17 07:34 05/25/17 11:34 White Blood Count 6.9 # Red Blood Count 4.29 L Hemoglobin 11.9 L Hematocrit 39.0 L Mean Corpuscular Volume 90.9 Mean Corpuscular Hemoglobin 27.7 L Mean Corpuscular Hemoglobin Concent 30.5 L Red Cell Distribution Width 14.8 H Platelet Count 194 Mean Platelet Volume 11.8 H Neutrophils % 64.3 Lymphocytes % 24.8 Monocytes % 5.7 Eosinophils % 3.5 Basophils % 1.6 Nucleated Red Blood Cells % 0.0 Neutrophils # 4.4 Lymphocytes # 1.7 Monocytes # 0.4 Eosinophils # 0.2 Basophils # 0.1 Nucleated Red Blood Cells # 0.0 D-Dimer 1351.37 H D-Dimer Comment Creatine Kinase 51 Creatine Kinase Index 3.8 Creatinine Kinase MB (Mass) 1.92 Troponin I 0.084 Sodium Level 141 Potassium Level 4.7 Chloride Level 105 Carbon Dioxide Level 30 Anion Gap 11 Blood Urea Nitrogen 46 H Creatinine 3.41 H Glucose Level 136 Calcium Level 8.2 L Total Bilirubin 0.1 L Direct Bilirubin 0.00 Indirect Bilirubin 0.1 Aspartate Amino Transf (AST/SGOT) 10 L Alanine Aminotransferase (ALT/SGPT) 32 Alkaline Phosphatase 44 Total Protein 5.0 L Albumin 2.7 L Globulin 2.30 Albumin/Globulin Ratio 1.17 Triglycerides Level 201 H Cholesterol Level 148 LDL Cholesterol, Calculated 88 HDL Cholesterol 20 L Cholesterol/HDL Ratio 7.4 Bedside Glucose 162 128 Medications Medications Current Medications Hydralazine HCl (Apresoline) 10 mg Q4H PRN IV SBP ABOVE 160; Start 05/24/17 at 22:00 Nitroglycerin (Nitroglycerin (Sl Tab) 0.4 Mg) 1 tab Q5M PRN SL ANGINA; Start at 22:00 Morphine Sulfate (morphine) 3 mg Q4H PRN IV PAIN; Start 05/24/17 at 22:00 Allopurinol (Zyloprim) 100 mg BID PO Last administered on 05/25/17 08:19; Admin Dose 100 MG; Start 05/24/17 at 22:00 Carvedilol (Coreg) 25 mg BID PO Last administered on 05/24/17 22:27; Admin Dose 25 MG; Start 05/24/17 at 22:00 Clopidogrel Bisulfate (plaVIX) 75 mg DAILY PO Last administered on 05/25/17 08 :18; Admin Dose 75 MG; Start 05/25/17 at 09:00 Insulin Glargine (Lantus) 33 unit DAILY@08 SC Last administered on 05/25/17 08 :22; Admin Dose 33 UNIT; Start 05/25/17 at 08:00 Isosorbide Dinitrate (Isordil) 20 mg TID PO Last administered on 05/25/17 14: 20; Admin Dose 20 MG; Start 05/24/17 at 22:00 Diagnostic Test (Pha) (Accu-Chek) 1 ea 02 XX ; Start 05/25/17 at 02:00 Miscellaneous Information 1 ea NOTE XX ; Start 05/24/17 at 22:00 Glucose (Glutose) 15 gm Q15M PRN PO DECREASED GLUCOSE; Start 05/24/17 at 22:00 Glucose (Glutose) 22.5 gm Q15M PRN PO DECREASED GLUCOSE; Start 05/24/17 at 22: 00 Dextrose (D50w Syringe) 25 ml Q15M PRN IV DECREASED GLUCOSE; Start 05/24/17 at 22:00 Dextrose (D50w Syringe) 50 ml Q15M PRN IV DECREASED GLUCOSE; Start 05/24/17 at 22:00 Glucagon (Glucagen) 1 mg Q15M PRN IM DECREASED GLUCOSE; Start 05/24/17 at 22:00 Glucose (Glutose) 15 gm Q15M PRN BUCCAL DECREASED GLUCOSE; Start 05/24/17 at 22 :00 Influenza Virus Vaccine (Fluzone) 0.5 ml ONCE ONCE IM* ; Start 05/26/17 at 09:00 ; Stop 05/26/17 at 09:01 ANMOL GILL MD May 25, 2017 14:35
[2017-05-25] MEDS: HEPARIN 5,000 UNIT/0.5 ML VIAL SC SCH ×2 (15:28→22:46)
[2017-05-25 22:59] LABS: ADD UMIC YES; UR ASCORBIC ACID NEGATIVE (NEGATIVE); UR BILIRUBIN (Dip) NEGATIVE (NEGATIVE); UR BLOOD (Dip) NEGATIVE (NEGATIVE); UR CLARITY CLEAR (CLEAR); UR COLOR COLORLESS (YELLOW); UR GLUCOSE (Dip) NEGATIVE (NEGATIVE); UR KETONES (Dip) NEGATIVE (NEGATIVE); UR LEUKOCYTE ESTERASE (Dip) NEGATIVE Leu/ul (NEGATIVE); UR NITRITE (Dip) NEGATIVE (NEGATIVE); UR RBC 0 /HPF (0-5); UR SPECIFIC GRAVITY (Dip) 1.005 (1.003-1.030); UR TOTAL PROTEIN (Dip) 2+ mg/dl (NEGATIVE); UR UROBILINOGEN (Dip) NEGATIVE (NEGATIVE)
[2017-05-25 23:09] LABS: PROTEIN/CREAT RATIO 7.53 RATIO
[2017-05-26] VITALS (16 sets, daily range): BP systolic 118–177; BP diastolic 66–92; PULSE 57–79; RESP 18–22
[2017-05-26] MEDS: ACCU-CHEK XX SCH (01:48)
[2017-05-26] MEDS: FUROSEMIDE 100 MG INJ IV SCH ×2 (06:17→18:00)
[2017-05-26] MEDS: HEPARIN 5,000 UNIT/0.5 ML VIAL SC SCH ×3 (06:26→21:10)
[2017-05-26 07:04] LABS: BASOPHIL # 0.1 10^3/ul (0.0-0.1); BASOPHILS % 1.6 % (0.0-2.0); EOSINOPHILS # 0.3 10^3/ul (0.0-0.5); EOSINOPHILS % 4.4 % (0.0-7.0); HEMATOCRIT 40.8 % (42.0-52.0); HEMOGLOBIN 12.5 g/dl (14.0-18.0); LYMPHOCYTES # 1.3 10^3/ul (0.8-2.9); LYMPHOCYTES % 18.6 % (15.0-51.0); MEAN CORPUSCULAR HEMOGLOBIN 28.2 pg (29.0-33.0); MEAN CORPUSCULAR HGB CONC 30.6 g/dl (32.0-37.0); MEAN CORPUSCULAR VOLUME 91.9 fl (82.0-101.0); MEAN PLATELET VOLUME 12.4 fl (7.4-10.4); MONOCYTE # 0.4 10^3/ul (0.3-0.9); MONOCYTES % 6.1 % (0.0-11.0); NEUTROPHIL # 4.9 10^3/ul (1.6-7.5); PLATELET COUNT 179 10^3/UL (140-415); RED BLOOD COUNT 4.44 10^6/ul (4.70-6.10); RED CELL DISTRIBUTION WIDTH 14.3 % (11.5-14.5); WHITE BLOOD COUNT 7.1 10^3/ul (4.8-10.8)
[2017-05-26 07:25] LABS: ALBUMIN/GLOBULIN RATIO 0.96; CALCIUM 8.3 mg/dl (8.4-10.2); CREATININE 3.27 mg/dl (0.61-1.24); POTASSIUM 4.5 mmol/L (3.5-5.1); TOTAL PROTEIN 6.1 g/dl (6.1-8.1)
[2017-05-26] MEDS: INSULIN ASPART [NOVOLOG] 3 ML PEN SC SCH ×4 (07:55→20:10)
[2017-05-26] MEDS: ALLOPURINOL 100 MG TAB PO SCH ×2 (08:37→20:59)
[2017-05-26] MEDS: ISOSORBIDE DINITRATE 10 MG TAB PO SCH ×3 (08:37→20:59)
[2017-05-26] MEDS: CLOPIDOGREL 75 MG TAB PO SCH (08:37)
[2017-05-26] MEDS ORDERED: INFLUENZA VIRUS VACCINE 0.5 ML (DISPENSING) IM* ONE (09:00)
[2017-05-26] MEDS: INSULIN GLARGINE [LANtus] 3 ML PEN SC SCH (09:04)
[2017-05-26 11:40] LABS: AADO2 Arterial 24.6 mmHg (7.0-24.0); Allen Test ACCEPTAB; Arterial Base Excess 4.1 mmol/L (-3.0-3); Arterial COHb 0.6 % (0.0-3.0); Arterial Fraction of Oxyhgb 92.2 % (93.0-99.0); Arterial HCO3 30.1 mmol/L (22.0-26.0); Arterial MetHb 0.3 % (0.0-1.5); Arterial Total Hemglobin 13.6 g/dl (12.0-18.0); MODE ROOM AIR
--- NOTE | 2017-05-26 16:07 | RADRPT ---
PROCEDURE: Nuclear medicine VQ scan CLINICAL INDICATION: Chest pain. Shortness of breath. TECHNIQUE: 40.0 mCi of technetium-99m DTPA was utilized for the ventilation study. 3.9 mCi of beth hnetium 99m MAA was utilized for the perfusion study. Planar imaging which performed in 8 planes. Images were reviewed on the high resolution PACS workstation. COMPARISON: Chest x-ray 05/24/2017 FINDINGS: There is diffuse heterogeneous uptake throughout the lungs on the ventilation and perfusion images. Multiple mismatch defects are seen. Large mismatch defects are not seen. However, multiple small def ects are identified. IMPRESSION: 1. Intermediate probability VQ scan. RPTAT: HMJB .David Mckeon MD, MD Date Time Electronically viewed and signed by .David Mckeon MD, on 05/26/2017 16:06 .B/
--- NOTE | 2017-05-26 16:08 | PN ---
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 DMII: - Basal bolus insulin Obesity: - Counseled on improtance of weight loss OHS: - Continue CPAP D-dimer: - DVT scan negative, await V/Q though has clear altenrative etiology of resripatory failure Dispo to self care when euvolemic Problems: Subjective 24 Hr Interval Summary Free Text/Dictation Breathing is improved Excellent diuresis 97% on RA Exam/Review of Systems Vital Signs Vitals Vital Signs Date Time Temp Pulse Resp B/P Pulse Ox O2 Delivery O2 Flow Rate FiO2 05/26/17 15:24 98.0 62 21 118/69 95 05/26/17 04:55 40 05/25/17 23:00 2.0 05/24/17 22:47 Nasal Cannula Intake and Output 05/25/17 05/25/17 05/26/17 15:00 23:00 07:00 Intake Total 1440 ml 120 ml Output Total 5300 ml 400 ml Balance -3860 ml -280 ml Exam Still +++ JVD clear lungs Trace pedal edema Comfortable respriatory status, nonlabored Results Result Diagram: 05/26/17 0610 05/26/17 0610 Results 24 hrs Laboratory Tests Test 05/25/17 17:57 05/25/17 19:05 05/25/17 20:16 05/26/17 06:10 Bedside Glucose 126 123 Urine Color COLORLESS Urine Clarity CLEAR Urine pH 7.0 Urine Specific [place] 1.005 Urine Ketones NEGATIVE Urine Nitrite NEGATIVE Urine Bilirubin NEGATIVE Urine Urobilinogen NEGATIVE Urine Leukocyte Esterase NEGATIVE Urine Microscopic RBC 0 Urine Microscopic WBC 0 Urine Hemoglobin NEGATIVE Urine Random Creatinine 12.60 L Urine Protein/Creatinine Ratio 7.53 Urine Glucose NEGATIVE Urine Total Protein 95.0 H White Blood Count 7.1 Red Blood Count 4.44 L Hemoglobin 12.5 L Hematocrit 40.8 L Mean Corpuscular Volume 91.9 Mean Corpuscular Hemoglobin 28.2 L Mean Corpuscular Hemoglobin Concent 30.6 L Red Cell Distribution Width 14.3 Platelet Count 179 Mean Platelet Volume 12.4 H Neutrophils % 69.0 Lymphocytes % 18.6 Monocytes % 6.1 Eosinophils % 4.4 Basophils % 1.6 Nucleated Red Blood Cells % 0.0 Neutrophils # 4.9 Lymphocytes # 1.3 Monocytes # 0.4 Eosinophils # 0.3 Basophils # 0.1 Nucleated Red Blood Cells # 0.0 Sodium Level 140 Potassium Level 4.5 Chloride Level 102 Carbon Dioxide Level 32 H Anion Gap 11 Blood Urea Nitrogen 47 H Creatinine 3.27 H Glucose Level 94 # Calcium Level 8.3 L Total Bilirubin 0.0 L Direct Bilirubin 0.00 Indirect Bilirubin 0.0 Aspartate Amino Transf (AST/SGOT) 14 L Alanine Aminotransferase (ALT/SGPT) 27 Alkaline Phosphatase 48 Total Protein 6.1 # Albumin 3.0 L Globulin 3.10 Albumin/Globulin Ratio 0.96 Test 05/26/17 08:18 05/26/17 09:34 05/26/17 12:37 Bedside Glucose 104 103 Blood Gas Specimen Source Blood arterial Arterial Blood Date Drawn 05/26/2017 11:30:06 AM Arterial Blood pH (Temp corrected) 7.391 Arterial Blood pCO2 (Temp correct) 50.8 H Arterial Blood pO2 (Temp corrected) 64.3 L Arterial Blood HCO3 30.1 H Arterial Blood Base Excess 4.1 H Arterial Blood Oxygen Saturation 93.0 L Luis Armando Test ACCEPTAB Arterial Blood Gas Puncture Site Left Radial Arterial Blood Carboxyhemoglobin 0.6 Arterial Blood Methemoglobin 0.3 Blood Gas A-a O2 Differential 24.6 H Oxyhemoglobin Percent 92.2 L Total Hemoglobin 13.6 Blood Gas Temperature 37.0 Blood Gas Modality ROOM AIR FiO2 21.0 Blood Gas Notified Whom [place] Blood Gas Notified Time 05/26/2017 11:39:59 AM Medications Medications Current Medications Hydralazine HCl (Apresoline) 10 mg Q4H PRN IV SBP ABOVE 160; Start 05/24/17 at 22:00 Nitroglycerin (Nitroglycerin (Sl Tab) 0.4 Mg) 1 tab Q5M PRN SL ANGINA; Start at 22:00 Morphine Sulfate (morphine) 3 mg Q4H PRN IV PAIN; Start 05/24/17 at 22:00 Allopurinol (Zyloprim) 100 mg BID PO Last administered on 05/26/17 08:37; Admin Dose 100 MG; Start 05/24/17 at 22:00 Carvedilol (Coreg) 25 mg BID PO Last administered on 05/26/17 08:36; Admin Dose 25 MG; Start 05/24/17 at 22:00 Clopidogrel Bisulfate (plaVIX) 75 mg DAILY PO Last administered on 05/26/17 08 :37; Admin Dose 75 MG; Start 05/25/17 at 09:00 Insulin Glargine (Lantus) 33 unit DAILY@08 SC Last administered on 05/26/17 09 :04; Admin Dose 33 UNIT; Start 05/25/17 at 08:00 Isosorbide Dinitrate (Isordil) 20 mg TID PO Last administered on 05/26/17 13: 35; Admin Dose 20 MG; Start 05/24/17 at 22:00 Diagnostic Test (Pha) (Accu-Chek) 1 ea 02 XX ; Start 05/25/17 at 02:00 Miscellaneous Information 1 ea NOTE XX ; Start 05/24/17 at 22:00 Glucose (Glutose) 15 gm Q15M PRN PO DECREASED GLUCOSE; Start 05/24/17 at 22:00 Glucose (Glutose) 22.5 gm Q15M PRN PO DECREASED GLUCOSE; Start 05/24/17 at 22: 00 Dextrose (D50w Syringe) 25 ml Q15M PRN IV DECREASED GLUCOSE; Start 05/24/17 at 22:00 Dextrose (D50w Syringe) 50 ml Q15M PRN IV DECREASED GLUCOSE; Start 05/24/17 at 22:00 Glucagon (Glucagen) 1 mg Q15M PRN IM DECREASED GLUCOSE; Start 05/24/17 at 22:00 Glucose (Glutose) 15 gm Q15M PRN BUCCAL DECREASED GLUCOSE; Start 05/24/17 at 22 :00 Heparin Sodium (Porcine) (Heparin (5000 Units/0.5 ml)) 5,000 unit Q8 SC Last administered on 05/26/17 13:43; Admin Dose 5,000 UNIT; Start 05/25/17 at 14:30 ANMOL GILL MD May 26, 2017 16:08
[2017-05-27] VITALS (20 sets, daily range): BP systolic 110–167; BP diastolic 63–92; PULSE 56–90; RESP 16–20
[2017-05-27] MEDS: ACCU-CHEK XX SCH (01:55)
[2017-05-27] MEDS: FUROSEMIDE 100 MG INJ IV SCH (06:04)
[2017-05-27] MEDS: HEPARIN 5,000 UNIT/0.5 ML VIAL SC SCH ×3 (06:12→21:46)
[2017-05-27 06:23] LABS: BASOPHIL # 0.1 10^3/ul (0.0-0.1); BASOPHILS % 1.2 % (0.0-2.0); EOSINOPHILS # 0.4 10^3/ul (0.0-0.5); EOSINOPHILS % 5.9 % (0.0-7.0); HEMATOCRIT 38.9 % (42.0-52.0); HEMOGLOBIN 11.7 g/dl (14.0-18.0); LYMPHOCYTES # 1.6 10^3/ul (0.8-2.9); LYMPHOCYTES % 24.9 % (15.0-51.0); MEAN CORPUSCULAR HEMOGLOBIN 27.3 pg (29.0-33.0); MEAN CORPUSCULAR HGB CONC 30.1 g/dl (32.0-37.0); MEAN CORPUSCULAR VOLUME 90.7 fl (82.0-101.0); MEAN PLATELET VOLUME 12.2 fl (7.4-10.4); MONOCYTE # 0.4 10^3/ul (0.3-0.9); MONOCYTES % 6.3 % (0.0-11.0); NEUTROPHILS % 61.4 % (39.0-77.0); PLATELET COUNT 203 10^3/UL (140-415); RED BLOOD COUNT 4.29 10^6/ul (4.70-6.10); RED CELL DISTRIBUTION WIDTH 14.4 % (11.5-14.5); WHITE BLOOD COUNT 6.5 10^3/ul (4.8-10.8)
[2017-05-27 07:17] LABS: ALBUMIN/GLOBULIN RATIO 1.11; BILIRUBIN,INDIRECT 0.2 mg/dl (0-1.1); BILIRUBIN,TOTAL 0.2 mg/dl (0.2-1.3); CREATININE 3.04 mg/dl (0.61-1.24); POTASSIUM 4.1 mmol/L (3.5-5.1); TOTAL PROTEIN 5.7 g/dl (6.1-8.1)
[2017-05-27] MEDS: INSULIN ASPART [NOVOLOG] 3 ML PEN SC SCH ×4 (07:55→20:45)
[2017-05-27] MEDS: ISOSORBIDE DINITRATE 10 MG TAB PO SCH ×3 (08:25→20:44)
[2017-05-27] MEDS: ALLOPURINOL 100 MG TAB PO SCH ×2 (08:25→20:45)
[2017-05-27] MEDS: CLOPIDOGREL 75 MG TAB PO SCH (08:25)
[2017-05-27] MEDS: INSULIN GLARGINE [LANtus] 3 ML PEN SC SCH (08:33)
--- NOTE | 2017-05-27 10:13 | PN ---
DATE: 05/27/2017 SUBJECTIVE DATA: The patient is stable. No acute events overnight. The patient states that he does have underlying chronic kidney disease and was previously being followed at [place]. The patient currently has no residential treatment staff. No other acute events noted. No hemoptysis, hematemesis, hematochezia. OBJECTIVE DATA: VITAL SIGNS: Blood pressure is 131/87, respirations 19, pulse 65, temperature 98.0 HEENT: Head is normocephalic. NECK: Supple. HEART: Regular rate. LUNGS: Diminished breath sounds at the base. ABDOMEN: Soft, nontender to palpation. No rebound or guarding. EXTREMITIES: Negative for clubbing, cyanosis. No edema. DERMATOLOGIC: Clean. No rashes. MUSCULOSKELETAL: No joint effusion. NEUROLOGIC: Unchanged exam. MEDICATIONS: Reviewed. LABORATORY AND DIAGNOSTIC DATA: Extremity exam shows no evidence of DVT. Lung scan shows intermediate probability for PE. The patient's sodium 141, potassium 4.1, BUN 45, creatinine 3.05. White count 6.5, hemoglobin 9.7, hematocrit 30.9, platelet count is 203,000. Urinalysis was reviewed. The patient has a protein creatinine ratio greater than 5 g/mL of creatinine. ASSESSMENT AND PLAN: This is a 70-year-old male who presents with: 1. Nonoliguric acute kidney injury on top of chronic kidney disease with unknown previous baseline renal function. Etiology of acute kidney injury appears to be secondary to hemodynamics. Renal function has improved with current medical management. Plan at this point is to continue current treatment plan. Supportive care. Renally dose all meds. Continue diuretic therapy. Would consider de-escalating. 2. Chronic kidney disease with nephrotic range proteinuria. Etiology is likely secondary to underlying diabetes. Other possibilities including primary glomerulopathy such as FSGS, membranous nephropathy cannot definitively be ruled out. Plan at this point is to repeat a protein creatinine ratio and microalbumin creatinine ratio. Will monitor closely. The patient may benefit from serological workup. Would try to obtain old medical records from [place]. Would otherwise treat acute kidney injury as stated above. 3. Congestive heart failure exacerbation. The patient is currently on aggressive diuretic therapy. Would follow up with 2D echo. Consider de-escalating Lasix. Otherwise continue medical management. 4. Coronary artery disease. Continue current treatment plan. 5. Anemia. Monitor hemoglobin and hematocrit levels. 6. Mineral bone disorder. Monitor calcium and phosphorus levels. 7. Diabetes. Continue Accu-Cheks and insulin sliding scale. 8. Obesity. Continue dietary modification. 9. Obstructive sleep apnea. Continue CPAP. Dictated By: Zackery Stanley DO /huma/yane /Document#: [id number]
[2017-05-27] MEDS: FUROSEMIDE 40 MG INJ IV SCH (17:06)
--- NOTE | 2017-05-27 17:51 | PN ---
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 Hypoxia resolved. Doubt PE is present, no AC Dispo to self care when euvolemic Problems: Subjective 24 Hr Interval Summary Free Text/Dictation Volme status improved Breathing improved Exam/Review of Systems Vital Signs Vitals Vital Signs Date Time Temp Pulse Resp B/P Pulse Ox O2 Delivery O2 Flow Rate FiO2 05/27/17 16:02 73 05/27/17 15:31 98.4 19 167/92 98 05/27/17 05:32 2.0 05/27/17 05:28 40 05/24/17 22:47 Nasal Cannula Intake and Output 05/26/17 05/26/17 05/27/17 15:00 23:00 07:00 Intake Total 840 ml 720 ml Output Total 4050 ml 2050 ml Balance -3210 ml -1330 ml Exam Constitutional: alert, oriented, well developed Psych: nl mood/affect, no complaints Head: atraumatic, normocephalic Eyes: EOMI, PERRL, nl conjunctiva, nl lids, nl sclera ENMT: nl external ears & nose, nl lips & teeth, nl nasal mucosa & septum Neck: non-tender, supple Respiratory: clear to auscultation, normal air movement Cardiovascular: nl pulses, regular rate and rhythm Gastrointestinal: nl liver, spleen, non-tender, soft Musculoskeletal: nl extremities to inspection, nl gait and stance Extremities: normal pulses Neurological: HEAD STOCK OPERATOR II-XII intact, nl mental status, nl speech, nl strength Skin: nl turgor, No rash or lesions Lymph: nl lymph nodes Results Result Diagram: 05/27/17 0552 05/27/17 0552 Results 24 hrs Laboratory Tests Test 05/26/17 20:05 05/27/17 05:52 05/27/17 08:17 05/27/17 10:00 Bedside Glucose 102 94 White Blood Count 6.5 Red Blood Count 4.29 L Hemoglobin 11.7 L Hematocrit 38.9 L Mean Corpuscular Volume 90.7 Mean Corpuscular Hemoglobin 27.3 L Mean Corpuscular Hemoglobin Concent 30.1 L Red Cell Distribution Width 14.4 Platelet Count 203 Mean Platelet Volume 12.2 H Neutrophils % 61.4 Lymphocytes % 24.9 Monocytes % 6.3 Eosinophils % 5.9 Basophils % 1.2 Nucleated Red Blood Cells % 0.0 Neutrophils # 4.0 Lymphocytes # 1.6 Monocytes # 0.4 Eosinophils # 0.4 Basophils # 0.1 Nucleated Red Blood Cells # 0.0 Sodium Level 141 Potassium Level 4.1 Chloride Level 101 Carbon Dioxide Level 35 H Anion Gap 9 Blood Urea Nitrogen 45 H Creatinine 3.04 H Glucose Level 93 Calcium Level 8.0 L Magnesium Level 2.0 Total Bilirubin 0.2 Direct Bilirubin 0.00 Indirect Bilirubin 0.2 Aspartate Amino Transf (AST/SGOT) 10 L Alanine Aminotransferase (ALT/SGPT) 27 Alkaline Phosphatase 44 Total Protein 5.7 L Albumin 3.0 L Globulin 2.70 Albumin/Globulin Ratio 1.11 Urine Random Creatinine 58.18 Urine Random Sodium 89 Urine Total Protein 298.0 H Test 05/27/17 12:04 05/27/17 17:05 Bedside Glucose 84 119 Medications Medications Current Medications Hydralazine HCl (Apresoline) 10 mg Q4H PRN IV SBP ABOVE 160; Start 05/24/17 at 22:00 Nitroglycerin (Nitroglycerin (Sl Tab) 0.4 Mg) 1 tab Q5M PRN SL ANGINA; Start at 22:00 Morphine Sulfate (morphine) 3 mg Q4H PRN IV PAIN; Start 05/24/17 at 22:00 Allopurinol (Zyloprim) 100 mg BID PO Last administered on 05/27/17t 08:25; Admin Dose 100 MG; Start 05/24/17 at 22:00 Carvedilol (Coreg) 25 mg BID PO Last administered on 05/27/17 08:25; Admin Dose 25 MG; Start 05/24/17 at 22:00 Clopidogrel Bisulfate (plaVIX) 75 mg DAILY PO Last administered on 05/27/17 08 :25; Admin Dose 75 MG; Start 05/25/17 at 09:00 Insulin Glargine (Lantus) 33 unit DAILY@08 SC Last administered on 05/27/17 08 :33; Admin Dose 33 UNIT; Start 05/25/17 at 08:00 Isosorbide Dinitrate (Isordil) 20 mg TID PO Last administered on 05/27/17 12: 06; Admin Dose 20 MG; Start 05/24/17 at 22:00 Diagnostic Test (Pha) (Accu-Chek) 1 ea 02 XX ; Start 05/25/17 at 02:00 Miscellaneous Information 1 ea NOTE XX ; Start 05/24/17 at 22:00 Glucose (Glutose) 15 gm Q15M PRN PO DECREASED GLUCOSE; Start 05/24/17 at 22:00 Glucose (Glutose) 22.5 gm Q15M PRN PO DECREASED GLUCOSE; Start 05/24/17 at 22: 00 Dextrose (D50w Syringe) 25 ml Q15M PRN IV DECREASED GLUCOSE; Start 05/24/17 at 22:00 Dextrose (D50w Syringe) 50 ml Q15M PRN IV DECREASED GLUCOSE; Start 05/24/17 at 22:00 Glucagon (Glucagen) 1 mg Q15M PRN IM DECREASED GLUCOSE; Start 05/24/17 at 22:00 Glucose (Glutose) 15 gm Q15M PRN BUCCAL DECREASED GLUCOSE; Start 05/24/17 at 22 :00 Heparin Sodium (Porcine) (Heparin (5000 Units/0.5 ml)) 5,000 unit Q8 SC Last administered on 05/27/17 14:05; Admin Dose 5,000 UNIT; Start 05/25/17 at 14:30 ANMOL GILL MD May 27, 2017 17:51
[2017-05-28] VITALS (16 sets, daily range): BP systolic 124–166; BP diastolic 68–88; PULSE 54–68; RESP 16–20
[2017-05-28] MEDS: ACCU-CHEK XX SCH (02:00)
[2017-05-28] MEDS: FUROSEMIDE 40 MG INJ IV SCH ×2 (05:58→17:57)
[2017-05-28] MEDS: HEPARIN 5,000 UNIT/0.5 ML VIAL SC SCH ×2 (06:13→12:50)
[2017-05-28 07:27] LABS: BASOPHIL # 0.1 10^3/ul (0.0-0.1); BASOPHILS % 1.5 % (0.0-2.0); EOSINOPHILS # 0.3 10^3/ul (0.0-0.5); EOSINOPHILS % 6.2 % (0.0-7.0); HEMATOCRIT 38.9 % (42.0-52.0); HEMOGLOBIN 11.9 g/dl (14.0-18.0); LYMPHOCYTES # 1.4 10^3/ul (0.8-2.9); MEAN CORPUSCULAR HEMOGLOBIN 27.8 pg (29.0-33.0); MEAN CORPUSCULAR HGB CONC 30.6 g/dl (32.0-37.0); MEAN CORPUSCULAR VOLUME 90.9 fl (82.0-101.0); MEAN PLATELET VOLUME 12.2 fl (7.4-10.4); MONOCYTE # 0.4 10^3/ul (0.3-0.9); MONOCYTES % 7.1 % (0.0-11.0); NEUTROPHIL # 3.3 10^3/ul (1.6-7.5); PLATELET COUNT 207 10^3/UL (140-415); RED BLOOD COUNT 4.28 10^6/ul (4.70-6.10); RED CELL DISTRIBUTION WIDTH 14.6 % (11.5-14.5); WHITE BLOOD COUNT 5.5 10^3/ul (4.8-10.8)
[2017-05-28] MEDS: INSULIN ASPART [NOVOLOG] 3 ML PEN SC SCH ×3 (07:55→17:55)
[2017-05-28 07:58] LABS: CALCIUM 8.4 mg/dl (8.4-10.2); CREATININE 3.14 mg/dl (0.61-1.24); MAGNESIUM 2.1 mg/dl (1.7-2.5); PHOSPHORUS 5.9 mg/dl (2.5-4.9)
[2017-05-28] MEDS: ALLOPURINOL 100 MG TAB PO SCH (08:32)
[2017-05-28] MEDS: CLOPIDOGREL 75 MG TAB PO SCH (08:32)
[2017-05-28] MEDS: ISOSORBIDE DINITRATE 10 MG TAB PO SCH ×2 (08:33→12:47)
[2017-05-28] MEDS: INSULIN GLARGINE [LANtus] 3 ML PEN SC SCH (08:44)
--- NOTE | 2017-05-28 09:40 | PN ---
DATE: 05/28/2017 SUBJECTIVE DATA: The patient is currently on CPAP. No other events noted overnight. No hemoptysis, hematemesis, hematochezia. OBJECTIVE DATA: VITAL SIGNS: Blood pressure 115/86, respirations 17, pulse 68, temperature 97.8. HEENT: Head is normocephalic. NECK: Supple. HEART: Regular rate. LUNGS: Diminished breath sounds at the base. ABDOMEN: Soft. Nontender to palpation. No rebound or guarding. EXTREMITIES: Negative for clubbing, cyanosis. No edema. DERMATOLOGIC: Clean. No rashes. MUSCULOSKELETAL: No joint effusion. NEUROLOGIC: No change in exam. MEDICATIONS: Reviewed. LABORATORY AND DIAGNOSTIC DATA: Shows white count 5.5, hemoglobin 9.9, hematocrit 38.9, platelet count is 207,000. Sodium 142, potassium 4.0, chloride 103, BUN 23, creatinine 3.14, phosphorus 5.90. ASSESSMENT AND PLAN: 1. Nonoliguric acute kidney injury on top of chronic kidney disease with unknown baseline creatinine. Etiology secondary to hemodynamics. Questionable cardiorenal syndrome. The patient's renal function has improved but has overall been stable since admission. At this point, continue current treatment plan. Supportive care. Continue current diuretic regimen. 2. Chronic kidney disease with nephrotic range proteinuria. Etiology is likely secondary to diabetes. Other possibilities include a primary glomerulopathy such as FSGS membranous nephropathy. Plan is to repeat a protein creatinine ratio and albumin creatinine ratio. Will follow old medical records from [place]. The patient may benefit from serological workup. Will continue to treat acute kidney injury as stated above. 3. Congestive heart failure exacerbation. Continue current medical management. Will consider a 2D echo. 4. Coronary artery disease. Continue current treatment plan. 5. Anemia. Monitor hemoglobin and hematocrit levels. 6. Mineral bone disorder. Monitor calcium and phosphorus levels. 7. Diabetes. Continue current insulin regimen. 8. Obstructive sleep apnea. Continue CPAP 9. Obesity. Continue dietary modification. Dictated By: Zackery Stanley DO /huma/yane /Document#: [id number]
[2017-05-28] MEDS ORDERED: ATOR20TA38 PO (11:58)
[2017-05-28] MEDS ORDERED: FURO40TA4 PO (11:58)
--- NOTE | 2017-05-28 12:00 | PDOCDIS ---
Discharge Instructions DIAGNOSIS Discharge Diagnosis CHF CONDITION Patient Condition: Fair HOME CARE INSTRUCTIONS: Diet Instructions: Reduced SodiumSpecial Diet: Carb controlled FOLLOW UP/APPOINTMENTS Follow-up Plan Make an appointment to see Dr Stanley (kidney doctor) as well as Dr Grullon ( conflicts analyst) in clinic in the coming 1-2 weeks We have double your dose of lasix from 40 mg twice daily to 80 mg twice daily. It is improtant to monitor your weight daily. If you go up more than a few pounds it is likely due to excess water weight. Eat a healthy diet low in salt and low in sugar It is also important to have your blood work done in the next 1-2 weeks ANMOL GILL MD May 28, 2017 12:00
--- NOTE | 2017-05-28 13:01 | CONS ---
Date/Time of Note Date/Time of Note DATE: 05/28/17 TIME: 12:58 Assessment/Plan Assessment/Plan Additional Assessment/Plan AKD/CKD Acute Systolic CHF 2011 CABG HTN DONALD -continue cardiac meds -renal involved -continue IV lasix - renal follwoing --check 2DEcho -add hydralazine due to EF 40% -possibly resume statin in jaime future Consultation Date/Type/Reason Admit Date/Time May 24, 2017 at 20:02 Hx of Present Illness mary is a 51-year-old male with coronary disease, hypertension, and diabetes who presents with chest pain and shortness of breath. The patient says that he is having shortness of breath with walking 4-5 steps. Shortness of breath that started this morning. He was recently admitted for an NSTEMI but he did not get a cardiac catheterization done at that time. He has had no treatment as of yet. Upon review of old medical records this is the patient's fourth visit to the ER since February 2017. He says that he does not currently have a primary doctor. Psychological: nl mood/affect, no complaints Past Surgical History Past Surgical Hx: coronary bypass surgery Social History Alcohol Use: none Smoking Status: Current some day smoker Drug Use: none Exam/Review of Systems Vital Signs Vitals Vital Signs Date Time Temp Pulse Resp B/P Pulse Ox O2 Delivery O2 Flow Rate FiO2 05/28/17 12:04 57 05/28/17 11:20 98.7 18 126/68 97 05/28/17 05:16 40 05/28/17 00:30 CPAP 05/27/17 05:32 2.0 Intake and Output 05/27/17 05/27/17 05/28/17 15:00 23:00 07:00 Intake Total 2400 ml Output Total 3600 ml 1200 ml Balance -1200 ml -1200 ml Results Result Diagram: 05/28/17 0619 05/28/1719 Results 24 hrs Laboratory Tests Test 05/27/17 17:05 05/27/17 20:32 05/28/17 06:19 05/28/17 08:30 Bedside Glucose 119 144 102 White Blood Count 5.5 Red Blood Count 4.28 L Hemoglobin 11.9 L Hematocrit 38.9 L Mean Corpuscular Volume 90.9 Mean Corpuscular Hemoglobin 27.8 L Mean Corpuscular Hemoglobin Concent 30.6 L Red Cell Distribution Width 14.6 H Platelet Count 207 Mean Platelet Volume 12.2 H Neutrophils % 59.0 Lymphocytes % 26.0 Monocytes % 7.1 Eosinophils % 6.2 Basophils % 1.5 Nucleated Red Blood Cells % 0.0 Neutrophils # 3.3 Lymphocytes # 1.4 Monocytes # 0.4 Eosinophils # 0.3 Basophils # 0.1 Nucleated Red Blood Cells # 0.0 Sodium Level 142 Potassium Level 4.0 Chloride Level 103 Carbon Dioxide Level 34 H Anion Gap 9 Blood Urea Nitrogen 43 H Creatinine 3.14 H Glucose Level 86 Calcium Level 8.4 Phosphorus Level 5.9 H Magnesium Level 2.1 Test 05/28/17 12:15 Bedside Glucose 142 Medications Medications Current Medications Hydralazine HCl (Apresoline) 10 mg Q4H PRN IV SBP ABOVE 160; Start 05/24/17 at 22:00 Nitroglycerin (Nitroglycerin (Sl Tab) 0.4 Mg) 1 tab Q5M PRN SL ANGINA; Start at 22:00 Morphine Sulfate (morphine) 3 mg Q4H PRN IV PAIN; Start 05/24/17 at 22:00 Allopurinol (Zyloprim) 100 mg BID PO Last administered on 05/28/17 08:32; Admin Dose 100 MG; Start 05/24/17 at 22:00 Carvedilol (Coreg) 25 mg BID PO Last administered on 05/28/17 08:34; Admin Dose 25 MG; Start 05/24/17 at 22:00 Clopidogrel Bisulfate (plaVIX) 75 mg DAILY PO Last administered on 05/28/17 08 :32; Admin Dose 75 MG; Start 05/25/17 at 09:00 Insulin Glargine (Lantus) 33 unit DAILY@08 SC Last administered on 05/28/17 08 :44; Admin Dose 33 UNIT; Start 05/25/17 at 08:00 Isosorbide Dinitrate (Isordil) 20 mg TID PO Last administered on 05/28/17 12: 47; Admin Dose 20 MG; Start 05/24/17 at 22:00 Diagnostic Test (Pha) (Accu-Chek) 1 ea 02 XX ; Start 05/25/17 at 02:00 Miscellaneous Information 1 ea NOTE XX ; Start 05/24/17 at 22:00 Glucose (Glutose) 15 gm Q15M PRN PO DECREASED GLUCOSE; Start 05/24/17 at 22:00 Glucose (Glutose) 22.5 gm Q15M PRN PO DECREASED GLUCOSE; Start 05/24/17 at 22: 00 Dextrose (D50w Syringe) 25 ml Q15M PRN IV DECREASED GLUCOSE; Start 05/24/17 at 22:00 Dextrose (D50w Syringe) 50 ml Q15M PRN IV DECREASED GLUCOSE; Start 05/24/17 at 22:00 Glucagon (Glucagen) 1 mg Q15M PRN IM DECREASED GLUCOSE; Start 05/24/17 at 22:00 Glucose (Glutose) 15 gm Q15M PRN BUCCAL DECREASED GLUCOSE; Start 05/24/17 at 22 :00 Heparin Sodium (Porcine) (Heparin (5000 Units/0.5 ml)) 5,000 unit Q8 SC Last administered on 05/28/17t 12:50; Admin Dose 5,000 UNIT; Start 05/25/17 at 14:30 CARLOS BHATIA MD May 28, 2017 13:01
--- NOTE | 2017-05-28 15:11 | DS ---
Date/Time of Note Date/Time of Note DATE: 05/28/17 TIME: 15:09 Discharge Summary Admission/Discharge Info Admit Date/Time May 24, 2017 at 20:02 Discharge Date/Time Discharge Diagnosis CHF Patient Condition: Good Hx of Present Illness This is a 51-year-old morbidly obese male with BMI of almost 41, with history of hypertension, CAD with stent, CABG, ischemic cardiomyopathy with a decreased systolic function was EF of 40%, CKD, DONALD. He presented to the ER complaining of chest pain and shortness of breath. Chest pain is left-sided with associated SOB. Chest pain and shortness of breath are worse with exertion. He was admitted here recently and was discharged a week ago after he presented with chest pain. At that time he had 3 negative troponins. 2D echo showed an EF of 40%. There was no cardiac intervention at that time. He said he has been compliant with his medications. When he came to the ER, he was initially hypoxic with O2 sat of 89%. So far 2 troponins are negative. EKG was no ST-T wave abnormalities. Chest x-ray shows Stable marked cardiac silhouette enlargement and chronic congestive heart failure pattern in this patient is status post thoracotomy and Left greater than right pleural effusions with associated compressive atelectasis and vertically of the left lower lobe, findings unchanged. Hospital Course Patient found to be in decompenstated systolic CHF. He was treated with IV lasix with excllent response. He diuresed about 10 L. SOB resolved. At discharge, his lasix dose was dobuled from 40 mg BID to 80 mg BID. He will follow up in clinic with Dr Stanley from nephrology and Mitchel from cardiology Home Meds Active Scripts Atorvastatin Calcium* (Atorvastatin Calcium*) 20 Mg Tablet, 20 MG PO QHS for 30 Days, #30 TAB Prov:ANMOL GILL MD 05/28/17 Furosemide* (Furosemide*) 40 Mg Tablet, 80 MG PO BID, #60 TAB Prov:ANMOL GILL MD 05/28/17 Albuterol Sulfate* (Proair HFA*) 8.5 Gm Hfa.aer.ad, 2 PUFF INH Q4H Y for WHEEZING AND SOB, #1 INHALER Prov:HANNAH ONOFRE NP 05/18/17 Allopurinol* (Allopurinol*) 100 Mg Tablet, 100 MG PO BID, #60 TAB Prov:HANNAH ONOFRE [employer] 05/18/17 Insulin Glargine* (Lantus*) 100 Unit/Ml Soln, 33 UNIT SC DAILY@08, #30 UNIT Prov:HANNAH ONOFRE [employer] 05/18/17 Isosorbide Dinitrate* (Isordil*) 10 Mg Tablet, 20 MG PO TID, #90 TAB 3 Refills Prov:CHOCO MONTOYA S. 04/14/17 Reported Medications Carvedilol* (Carvedilol*) 25 Mg Tablet, 25 MG PO BID, #60 TAB 03/19/17 Clopidogrel Bisulfate (Clopidogrel) 75 Mg Tablet, 75 MG PO DAILY, #30 TAB 03/19/17 Glipizide* (Glipizide*) 5 Mg Tablet, 5 MG PO AC BREAKFAST DINNER, TAB 03/19/17 Follow-up Plan Make an appointment to see Dr Stanley (kidney doctor) as well as Dr Grullon ( director export) in clinic in the coming 1-2 weeks We have double your dose of lasix from 40 mg twice daily to 80 mg twice daily. It is improtant to monitor your weight daily. If you go up more than a few pounds it is likely due to excess water weight. Eat a healthy diet low in salt and low in sugar It is also important to have your blood work done in the next 1-2 weeks Primary Care Provider Souleymane Carrion MD Pending Labs Laboratory Tests Test 05/27/17 17:05 05/27/17 20:32 05/28/17 06:19 05/28/17 08:30 Bedside Glucose 119mg/dL (70-220) 144mg/dL (70-220) 102mg/dL (70-220) White Blood Count 5.510^3/ul (4.8-10.8) Red Blood Count 4.2810^6/ul (4.70-6.10) Hemoglobin 11.9g/dl (14.0-18.0) Hematocrit 38.9% (42.0-52.0) Mean Corpuscular Volume 90.9fl (82.0-101.0) Mean Corpuscular Hemoglobin 27.8pg (29.0-33.0) Mean Corpuscular Hemoglobin Concent 30.6g/dl (32.0-37.0) Red Cell Distribution Width 14.6% (11.5-14.5) Platelet Count 79139^3/UL (140-415) Mean Platelet Volume 12.2fl (7.4-10.4) Neutrophils % 59.0% (39.0-77.0) Lymphocytes % 26.0% (15.0-51.0) Monocytes % 7.1% (0.0-11.0) Eosinophils % 6.2% (0.0-7.0) Basophils % 1.5% (0.0-2.0) Nucleated Red Blood Cells % 0.0/100WBC (0.0-0.0) Neutrophils # 3.310^3/ul (1.6-7.5) Lymphocytes # 1.410^3/ul (0.8-2.9) Monocytes # 0.410^3/ul (0.3-0.9) Eosinophils # 0.310^3/ul (0.0-0.5) Basophils # 0.110^3/ul (0.0-0.1) Nucleated Red Blood Cells # 0.010^3/ul (0.0-0.0) Sodium Level 142mmol/L (135-144) Potassium Level 4.0mmol/L (3.5-5.1) Chloride Level 103mmol/L (97-110) Carbon Dioxide Level 34mmol/L (21-31) Anion Gap 9 (8-16) Blood Urea Nitrogen 43mg/dl (7-20) Creatinine 3.14mg/dl (0.61-1.24) Glucose Level 86mg/dl (70-220) Calcium Level 8.4mg/dl (8.4-10.2) Phosphorus Level 5.9mg/dl (2.5-4.9) Magnesium Level 2.1mg/dl (1.7-2.5) Test 05/28/17 12:15 Bedside Glucose 142mg/dL (70-220) ANMOL GILL MD May 28, 2017 15:11
[2017-05-29 14:17] LABS: ADD UMIC YES; UR ASCORBIC ACID NEGATIVE (NEGATIVE); UR BILIRUBIN (Dip) NEGATIVE (NEGATIVE); UR BLOOD (Dip) NEGATIVE (NEGATIVE); UR CLARITY CLEAR (CLEAR); UR COLOR STRAW (YELLOW); UR GLUCOSE (Dip) NEGATIVE (NEGATIVE); UR KETONES (Dip) NEGATIVE (NEGATIVE); UR LEUKOCYTE ESTERASE (Dip) NEGATIVE Leu/ul (NEGATIVE); UR NITRITE (Dip) NEGATIVE (NEGATIVE); UR RBC 0 /HPF (0-5); UR SPECIFIC GRAVITY (Dip) 1.011 (1.003-1.030); UR TOTAL PROTEIN (Dip) 2+ mg/dl (NEGATIVE); UR UROBILINOGEN (Dip) NEGATIVE (NEGATIVE)
== END 2017-05-28 20:00 | disposition home or self-care (01) | DRG 291 ==
LOC: E/R 18:00 → MS2 20:02 → TEL 21:45
PROVIDERS: ADMIT Internal Medicine; ATTEND Internal Medicine
PROC: 4A033R1 Measurement of Arterial Saturation, Peripheral, Percutaneous Approach (ICD-10-PCS; principal; 2017-05-26)
PROC: 3E0234Z Introduction of Serum, Toxoid and Vaccine into Muscle, Percutaneous Approach (ICD-10-PCS; 2017-05-26)
DX: I13.0 Hypertensive heart and chronic kidney disease with heart failure and stage 1 through stage 4 chronic kidney disease, or unspecified chronic kidney disease (principal); I50.23 Acute on chronic systolic (congestive) heart failure; E11.22 Type 2 diabetes mellitus with diabetic chronic kidney disease; N17.9 Acute kidney failure, unspecified; N18.4 Chronic kidney disease, stage 4 (severe); E66.2 Morbid (severe) obesity with alveolar hypoventilation; Z68.41 Body mass index [BMI] 40.0-44.9, adult; Z23 Encounter for immunization; I25.10 Atherosclerotic heart disease of native coronary artery without angina pectoris; I25.5 Ischemic cardiomyopathy; F17.210 Nicotine dependence, cigarettes, uncomplicated; D64.9 Anemia, unspecified; I25.2 Old myocardial infarction; G47.33 Obstructive sleep apnea (adult) (pediatric); Z95.5 Presence of coronary angioplasty implant and graft; Z79.4 Long term (current) use of insulin; Z95.1 Presence of aortocoronary bypass graft; Z82.49 Family history of ischemic heart disease and other diseases of the circulatory system
CPT/HCPCS: 36415; 36600; 71010; 78582; 80048; 80053; 80061; 81001; 81003; 82043; 82550; 82553; 82570; 82803; 82962; 83036; 83735; 84100; 84155; 84300; 84484; 85025; 85378; 90686; 93005; 93970; 94660; 94664; A9540; J0360; J1644; J1815; J1940

== ENCOUNTER 2017-06-16 20:43 | Inpatient (IN) | payer MEDICAID, OTHER ==
[~2017-06-16] VITALS: Ht 180.3 cm; Wt 127.0 kg
[~2017-06-16 20:43] MED LIST changes: +ATOR20TA38 PO
--- NOTE | 2017-06-16 21:17 | ERD ---
ER Documentation Chief Complaint Chief Complaint shortness of breath x 2 days HPI 52-year-old man with a history of CHF presents short of breath with and has dietary indiscretion. He also complains of bilateral lower extremity edema. He denies chest pain, no cough, no fevers or chills, no vomiting or diarrhea, no blood per rectum or melena. ROS All systems reviewed and are negative except as per history of present illness. Medications Home Meds Active Scripts Atorvastatin Calcium* (Atorvastatin Calcium*) 20 Mg Tablet, 20 MG PO QHS for 30 Days, #30 TAB Prov:ANMOL GILL MD 05/28/17 Furosemide* (Furosemide*) 40 Mg Tablet, 80 MG PO BID, #60 TAB Prov:ANMOL GILL MD 05/28/17 Albuterol Sulfate* (Proair HFA*) 8.5 Gm Hfa.aer.ad, 2 PUFF INH Q4H Y for WHEEZING AND SOB, #1 INHALER Prov:HANNAH ONOFRE NP 05/18/17 Allopurinol* (Allopurinol*) 100 Mg Tablet, 100 MG PO BID, #60 TAB Prov:HANNAH ONOFRE NP 05/18/17 Insulin Glargine* (Lantus*) 100 Unit/Ml Soln, 33 UNIT SC DAILY@08, #30 UNIT Prov:HANANH ONOFRE NP 05/18/17 Isosorbide Dinitrate* (Isordil*) 10 Mg Tablet, 20 MG PO TID, #90 TAB 3 Refills Prov:CHOCO MONTOYA S. 04/14/17 Reported Medications Carvedilol* (Carvedilol*) 25 Mg Tablet, 25 MG PO BID, #60 TAB 03/19/17 Clopidogrel Bisulfate (Clopidogrel) 75 Mg Tablet, 75 MG PO DAILY, #30 TAB 03/19/17 Glipizide* (Glipizide*) 5 Mg Tablet, 5 MG PO AC BREAKFAST DINNER, TAB 03/19/17 Allergies Allergies: Coded Allergies: No Known Allergy (Unverified , 06/16/17) PMhx/Soc Obesity, hypertension, CAD with stent, CABG, ischemic cardiomyopathy with a decreased systolic function was EF of 40%, CKD, DONALD History of Surgery: No Anesthesia Reaction: No Hx Neurological Disorder: No Hx Respiratory Disorders: Yes Hx Cardiac Disorders: Yes Hx Psychiatric Problems: No Hx Miscellaneous Medical Probl: No Hx Alcohol Use: Yes Hx Substance Use: No Hx Tobacco Use: Yes FmHx Family History: No diabetes Physical Exam Vitals Vital Signs Date Time Temp Pulse Resp B/P Pulse Ox O2 Delivery O2 Flow Rate FiO2 06/16/17 23:00 82 98 30 06/16/17 22:43 78 20 161/99 97 BIPAP 06/16/17 21:34 93 28 95 Nasal Cannula 2.0 06/16/17 20:52 98.1 98 24 184/106 94 Physical Exam GENERAL: Well-developed, well-nourished, well-hydrated, in no apparent distress , looks nontoxic in appearance HEENT: Moist mucous membranes, pink conjunctiva, no cervical spine tenderness or step-off deformities, no goiter, no jaundice or icterus, extraocular movements intact without pain. No submandibular induration, and no pharyngeal erythema NEURO: Alert and oriented 3, cranial nerves II through XII intact bilaterally, pupils equal round reactive to light, no focal deficits or facial asymmetry, sensation intact distally Strength 5/5 in upper and lower extremities bilaterally CARDIAC: Regular rate and rhythm, no murmurs rubs or gallops LUNGS: Bilateral crackles with scattered wheezes, no stridor ABDOMEN: Soft nontender, no guarding, no rigidity, no rebound, no psoas sign no obturator sign. Normoactive bowel sounds SKIN: Warm and dry to touch, no abrasions, contusions, or hematomas, no lacerations, no ecchymosis, no target lesions, and without ulcers EXTREMITIES: No clubbing cyanosis, 3+ pitting edema in the lower extremities bilaterally, calves are bilaterally symmetrical, no Homans sign, no popliteal cord sign. Distal pulses equal and bilateral PSYCH: Normal affect without agitation or irritability Result Diagram: 06/17/1734606/17/17346 Results 24 hrs Laboratory Tests Test 06/16/17 21:40 White Blood Count 8.310^3/ul Red Blood Count 4.6910^6/ul Hemoglobin 13.3g/dl Hematocrit 41.1% Mean Corpuscular Volume 87.6fl Mean Corpuscular Hemoglobin 28.4pg Mean Corpuscular Hemoglobin Concent 32.4g/dl Red Cell Distribution Width 14.3% Platelet Count 65999^3/UL Mean Platelet Volume 11.8fl Neutrophils % 69.2% Lymphocytes % 18.7% Monocytes % 6.4% Eosinophils % 4.5% Basophils % 0.8% Nucleated Red Blood Cells % 0.0/100WBC Neutrophils # 5.710^3/ul Lymphocytes # 1.510^3/ul Monocytes # 0.510^3/ul Eosinophils # 0.410^3/ul Basophils # 0.110^3/ul Nucleated Red Blood Cells # 0.010^3/ul Sodium Level 140mmol/L Potassium Level 4.0mmol/L Chloride Level 104mmol/L Carbon Dioxide Level 27mmol/L Anion Gap 13 Blood Urea Nitrogen 33mg/dl Creatinine 3.38mg/dl Glucose Level 116mg/dl Calcium Level 8.1mg/dl Total Bilirubin 0.1mg/dl Direct Bilirubin 0.00mg/dl Indirect Bilirubin 0.1mg/dl Aspartate Amino Transf (AST/SGOT) 12IU/L Alanine Aminotransferase (ALT/SGPT) 28IU/L Alkaline Phosphatase 59IU/L Troponin I 0.096ng/ml B-Type Natriuretic Peptide 08735IA/ML Total Protein 6.3g/dl Albumin 3.3g/dl Globulin 3.00g/dl Albumin/Globulin Ratio 1.10 Lipase 219U/L Current Medications Medications (Trade) Dose Ordered Sig/Chi Route PRN Reason Start Time Stop Time Status Last Admin Dose Admin Aspirin (Aspirin) 324 mg ONCE ONCE PO 06/16/17 21:30 06/16/17 21:31 DC 06/16/17 21:43 Furosemide (Lasix) 60 mg ONCE ONCE IV 06/16/17 21:30 06/16/17 21:31 DC 06/16/17 21:43 Nitroglycerin (Nitroglycerin (Sl Tab) 0.4 Mg) 1 tab ONCE ONCE SL 06/16/17 21:30 06/16/17 21:31 DC 06/16/17 21:59 Enalaprilat (Vasotec Iv) 1.25 mg ONCE ONCE IV 06/16/17 21:30 06/16/17 21:31 DC 06/16/17 21:57 Albuterol (Proventil 0.083% (Neb)) 5 mg ONCE STAT HHN 06/16/17 21:26 06/16/17 21:27 DC 06/16/17 21:34 Procedures/MDM IV line was established patient was placed on alarm security or surveillance monitor rhythm strip revealed a sinus rhythm at 90 bpm. Patient was afebrile. EKG performed, read by me revealed a normal sinus rhythm at 97 bpm, normal axis , intraventricular conduction delay with incarceration of 112 ms, no concerning ST elevations or depressions noted. One view chest x-ray performed, read by me revealed cardiomegaly and bilateral pulmonary vascular congestion consistent with decompensated heart failure, no acute infiltrates, no pneumothorax. I administered albuterol 5 mg via nebulizer for S OB, aspirin 324 mg p.o. for cardio protective measures, nitroglycerin 0.4 mg sublingual, enalapril 1.25 mg IV, and furosemide 60 mg IV 1. CBC was unremarkable, electrolytes revealed kidney injury with a creatinine of 3.4, liver function tests are normal, troponin was negative, BNP elevated over 16,000. Patient required BiPAP therapy for continued dyspnea. Critical Care: Time: 50 minutes, this was time separate from other billable procedures. Treatments/Evaluations: Close monitoring and treatment of unstable vital signs, cardiorespiratory, and neurologic status, while maintaining tight balance of fluid, respiratory, and cardiac interventions. Departure Diagnosis: Primary Impression: CHF (congestive heart failure) Congestive heart failure type: systolic Congestive heart failure chronicity: acute Qualified Code: I50.21 - Acute systolic congestive heart failure Additional Impressions: Acute respiratory failure Respiratory failure complication: hypoxia and hypercapnia Qualified Code: J96.01 - Acute respiratory failure with hypoxia and hypercapnia Acute kidney injury Hypertensive emergency Condition: Serious MELITON BAJWA MD Jun 16, 2017 21:17
[2017-06-16] MEDS ORDERED: ALBUTEROL 0.083% (NEB) 2.5 MG/3 ML AMP HHN STA (21:26)
[2017-06-16] MEDS ORDERED: ENALAPRILAT 1.25 MG INJ IV ONE (21:30)
[2017-06-16] MEDS ORDERED: NITROGLYCERIN (SL) 0.4 MG TAB SL ONE (21:30)
[2017-06-16] MEDS ORDERED: FUROSEMIDE 40 MG INJ IV ONE (21:30)
[2017-06-16] MEDS ORDERED: ASPIRIN 81 MG TAB PO ONE (21:30)
[2017-06-16 22:00] LABS: BASOPHIL # 0.1 10^3/ul (0.0-0.1); BASOPHILS % 0.8 % (0.0-2.0); EOSINOPHILS # 0.4 10^3/ul (0.0-0.5); EOSINOPHILS % 4.5 % (0.0-7.0); HEMATOCRIT 41.1 % (42.0-52.0); HEMOGLOBIN 13.3 g/dl (14.0-18.0); LYMPHOCYTES # 1.5 10^3/ul (0.8-2.9); LYMPHOCYTES % 18.7 % (15.0-51.0); MEAN CORPUSCULAR HEMOGLOBIN 28.4 pg (29.0-33.0); MEAN CORPUSCULAR HGB CONC 32.4 g/dl (32.0-37.0); MEAN CORPUSCULAR VOLUME 87.6 fl (82.0-101.0); MEAN PLATELET VOLUME 11.8 fl (7.4-10.4); MONOCYTE # 0.5 10^3/ul (0.3-0.9); MONOCYTES % 6.4 % (0.0-11.0); NEUTROPHIL # 5.7 10^3/ul (1.6-7.5); NEUTROPHILS % 69.2 % (39.0-77.0); PLATELET COUNT 203 10^3/UL (140-415); RED BLOOD COUNT 4.69 10^6/ul (4.70-6.10); RED CELL DISTRIBUTION WIDTH 14.3 % (11.5-14.5); WHITE BLOOD COUNT 8.3 10^3/ul (4.8-10.8)
[2017-06-16 22:26] LABS: ALBUMIN 3.3 g/dl (3.3-4.9); ALBUMIN/GLOBULIN RATIO 1.1; BILIRUBIN,INDIRECT 0.1 mg/dl (0-1.1); BILIRUBIN,TOTAL 0.1 mg/dl (0.2-1.3); CALCIUM 8.1 mg/dl (8.4-10.2); CREATININE 3.38 mg/dl (0.61-1.24); TOTAL PROTEIN 6.3 g/dl (6.1-8.1)
[2017-06-16 22:37] LABS: TROPONIN-I 0.096 ng/ml (0.00-0.12)
--- NOTE | 2017-06-16 22:48 | RADRPT ---
PROCEDURE: CHEST - 1 VIEW CLINICAL INDICATION: 52-year-old male with chest/abdominal pain. TECHNIQUE: A single frontal AP semi-erect portable view of the chest was performed. The images we re reviewed on a PACS workstation. COMPARISON: CHEST 05/24/2017; [facility] CHEST 03/19/2017 FINDINGS: The patient has had a prior median sternotomy. The cardiomediastinal silhouette is markedly enlarged but without significant interval change. There is mild pulmonary vascular congestion. There is a sh allow inspiration. There is mild bibasilar subsegmental atelectasis. There is no evidence for focal consolidation. There is no evidence for pneumothorax. IMPRESSION: 1. Status post median sternotomy. 2. Cardiomegaly. 3. Pulmonary vascular congestion. 4. Shallow inspiration. 5. Mild bibasilar subsegmental atelectasis. .Morgan Pineda MD, Date Time Electronically viewed and signed by .Morgan Pineda MD, on 06/16/2017 22:48 .M/
[2017-06-17] VITALS (17 sets, daily range): BP systolic 101–161; BP diastolic 54–95; PULSE 60–98; RESP 18–20; Ht 180.3 cm; Wt 127.0 kg
[2017-06-17] MEDS ORDERED: ALBUTEROL 18 GM INHALER INH PRN (03:00)
[2017-06-17] MEDS ORDERED: ONDANSETRON 4 MG INJ IV PRN (03:00)
[2017-06-17] MEDS ORDERED: GLUCAGON 1 MG INJ IM PRN (03:30)
[2017-06-17] MEDS ORDERED: GLUCOSE GEL 15 GRAM TUBE BUCCAL PRN (03:30)
[2017-06-17] MEDS ORDERED: GLUCOSE GEL 15 GRAM TUBE PO PRN ×2 (03:30)
[2017-06-17] MEDS ORDERED: DEXTROSE 50% 50 ML SYRINGE IV PRN ×2 (03:30)
[2017-06-17 04:03] LABS: BASOPHIL # 0.1 10^3/ul (0.0-0.1); BASOPHILS % 1.2 % (0.0-2.0); EOSINOPHILS # 0.3 10^3/ul (0.0-0.5); EOSINOPHILS % 4.6 % (0.0-7.0); HEMOGLOBIN 12.9 g/dl (14.0-18.0); LYMPHOCYTES # 1.5 10^3/ul (0.8-2.9); LYMPHOCYTES % 19.6 % (15.0-51.0); MEAN CORPUSCULAR HEMOGLOBIN 27.7 pg (29.0-33.0); MEAN CORPUSCULAR HGB CONC 31.5 g/dl (32.0-37.0); MEAN PLATELET VOLUME 11.2 fl (7.4-10.4); MONOCYTE # 0.5 10^3/ul (0.3-0.9); MONOCYTES % 7.1 % (0.0-11.0); NEUTROPHILS % 67.2 % (39.0-77.0); PLATELET COUNT 210 10^3/UL (140-415); RED BLOOD COUNT 4.66 10^6/ul (4.70-6.10); RED CELL DISTRIBUTION WIDTH 14.5 % (11.5-14.5); WHITE BLOOD COUNT 7.4 10^3/ul (4.8-10.8)
[2017-06-17 04:25] LABS: CALCIUM 8.2 mg/dl (8.4-10.2); CHOL/HDL RATIO 7.1 RATIO; CREATININE 3.4 mg/dl (0.61-1.24)
[2017-06-17 05:17] LABS: THYROID STIMULATING HORMONE 1.95 MIU/L (0.465-4.680)
[2017-06-17] MEDS ORDERED: FUROSEMIDE 40 MG INJ IV SCH (06:00)
--- NOTE | 2017-06-17 06:40 | HP ---
Date/Time of Note Date/Time of Note DATE: 06/17/17 TIME: 06:32 Assessment/Plan VTE Prophylaxis VTE Prophylaxis Intervention: SCD's Lines/Catheters IV Catheter Type (from Nrs): Saline Lock Urinary Cath still in place: No Assessment/Plan Assessment/Plan ASSESSMENT 52-year-old morbidly obese male with BMI of 39, with history of hypertension, CAD with stent, CABG, ischemic cardiomyopathy with a decreased systolic function with EF of 40%, CKD, DONALD presents with shortness of breath, most likely secondary to systolic CHF PLAN IV Lasix Continue home cardiac medications Strict ins and outs, monitor urine output, fluid restriction Will take him off of BiPAP and place on nasal cannula. Will obtain ABG Cardiology and nephrology consult HPI/ROS Admit Date/Time Admit Date/Time Jun 16, 2017 at 23:33 Hx of Present Illness This is a 52-year-old morbidly obese male with BMI of almost 41, with history of hypertension, CAD with stent, CABG, ischemic cardiomyopathy with a decreased systolic function with EF of 40%, CKD, DONALD presented to ER complaining of shortness of breath. He said symptom has been progressively getting worse for the past few days. He denied chest pain. He said he has been compliant with his home medications including Lasix. Patient was admitted here about 3 weeks ago for CHF exacerbation and acute on CKD. He was diuresed with removal of about 10 L and he was discharged after his symptoms improved. When he presented to the ER today, BP was 184/106, RR 24, O2 sats 94% on 2 L. Chest x-ray showed pulmonary vascular congestion. BNP is 16,200. Creatinine 3.38 and stable. Patient was placed on BiPAP while he was in the ER. No ABG was done. PMH/Family/Social Past Surgical History Past Surgical Hx: coronary bypass surgery Social History Smoking Status: Current some day smoker Exam/Review of Systems Vital Signs Vitals Vital Signs Date Time Temp Pulse Resp B/P Pulse Ox O2 Delivery O2 Flow Rate FiO2 06/17/17 06:04 72 99 30 06/17/17 04:47 98.1 20 145/88 06/17/17 03:00 BIPAP 06/16/17 21:34 2.0 Intake and Output 06/16/17 06/16/17 06/17/17 15:00 23:00 07:00 Intake Total 50 ml Output Total 1650 ml Balance -1600 ml Exam Constitutional: other (No acute distress) Head: atraumatic, normocephalic Eyes: EOMI, PERRL Respiratory: diminished breath sounds Cardiovascular: regular rate and rhythm Gastrointestinal: non-tender, soft Extremities: normal pulses Labs Result Diagram: 06/17/1734606/17/17346 Medications Medications Current Medications Ondansetron HCl (Zofran Inj) 4 mg Q6 PRN IV nausea; Start 06/17/17 at 03:00 Albuterol (Ventolin Hfa) 2 puff Q4H PRN INH WHEEZING AND SOB; Start 06/17/17 at 03:00 Atorvastatin Calcium (Lipitor) 20 mg QHS PO ; Start 06/17/17 at 21:00 Carvedilol (Coreg) 25 mg BID PO ; Start 06/17/17 at 09:00 Clopidogrel Bisulfate (plaVIX) 75 mg DAILY PO ; Start 06/17/17 at 09:00 Insulin Glargine (Lantus) 33 unit DAILY@08 SC ; Start 06/17/17 at 08:00 Isosorbide Dinitrate (Isordil) 20 mg TID PO ; Start 06/17/17 at 09:00 Diagnostic Test (Pha) (Accu-Chek) 1 ea 02 XX ; Start 06/18/17 at 02:00 Miscellaneous Information 1 ea NOTE XX ; Start 06/17/17 at 03:30 Glucose (Glutose) 15 gm Q15M PRN PO DECREASED GLUCOSE; Start 06/17/17 at 03:30 Glucose (Glutose) 22.5 gm Q15M PRN PO DECREASED GLUCOSE; Start 06/17/17 at 03: 30 Dextrose (D50w Syringe) 25 ml Q15M PRN IV DECREASED GLUCOSE; Start 06/17/17 at 03:30 Dextrose (D50w Syringe) 50 ml Q15M PRN IV DECREASED GLUCOSE; Start 06/17/17 at 03:30 Glucagon (Glucagen) 1 mg Q15M PRN IM DECREASED GLUCOSE; Start 06/17/17 at 03: 30 Glucose (Glutose) 15 gm Q15M PRN BUCCAL DECREASED GLUCOSE; Start 06/17/17 at 03:30 Influenza Virus Vaccine (Fluzone) 0.5 ml ONCE ONCE IM* ; Start 06/18/17 at 09: 00; Stop 06/18/17 at 09:01 PAYAM LINDER MD Jun 17, 2017 06:40
[2017-06-17] MEDS: INSULIN ASPART [NOVOLOG] 3 ML PEN SC SCH ×4 (08:00→21:00)
[2017-06-17 08:22] LABS: AADO2 Arterial 55.7 mmHg (7.0-24.0); Allen Test ACCEPTAB; Arterial Base Excess 2.2 mmol/L (-3.0-3); Arterial COHb 1.6 % (0.0-3.0); Arterial Fraction of Oxyhgb 95.1 % (93.0-99.0); Arterial HCO3 29.1 mmol/L (22.0-26.0); Arterial MetHb 0.2 % (0.0-1.5); Arterial Total Hemglobin 14.4 g/dl (12.0-18.0); Blood Gas IEPAP 15/5; MODE MASK - BIPAP
[2017-06-17] MEDS: INSULIN GLARGINE [LANtus] 3 ML PEN SC SCH (08:52)
[2017-06-17] MEDS: ISOSORBIDE DINITRATE 20 MG TAB PO SCH ×3 (08:53→21:28)
[2017-06-17] MEDS: CLOPIDOGREL 75 MG TAB PO SCH (08:53)
--- NOTE | 2017-06-17 12:26 | PN ---
Date/Time of Note Date/Time of Note DATE: 06/17/17 TIME: 12:09 Assessment/Plan VTE Prophylaxis VTE Prophylaxis Intervention: heparin Lines/Catheters IV Catheter Type (from Nrs): Saline Lock Urinary Cath still in place: No Assessment/Plan Assessment/Plan 1. CHF, acute on chronic, systolic, on lasix 2. CAD, s/p PCI/stent/CABG, resume home meds 3. Ischemic cardiomyopathy 4. Hypertension, controlled 5. CKD, stage IV, follow up with BMP 6. Dyslipidemia, on statin 7. Bronchitis, likely eearly COPD, advise to quit smoking, neb/levaquin 8. DVT prophylaxis: heparin Subjective 24 Hr Interval Summary Free Text/Dictation cough with yellowish sputum. still with shortness of breath Exam/Review of Systems Vital Signs Vitals Vital Signs Date Time Temp Pulse Resp B/P Pulse Ox O2 Delivery O2 Flow Rate FiO2 06/17/17 11:37 98.0 62 20 101/54 99 06/17/17 08:37 30 06/17/17 03:00 BIPAP 06/16/17 21:34 2.0 Intake and Output 06/16/17 06/16/17 06/17/17 15:00 23:00 07:00 Intake Total 50 ml Output Total 1650 ml Balance -1600 ml Exam Constitutional: alert, obese, oriented Psych: nl mood/affect, no complaints Head: atraumatic, normocephalic Eyes: EOMI, nl conjunctiva, nl lids ENMT: mucosa pink and moist, nl external ears & nose, nl lips & teeth, nl nasal mucosa & septum Neck: non-tender, supple Respiratory: other (some rhonchi) Cardiovascular: nl pulses, regular rate and rhythm, No S3, No S4, No bruits, No diastolic murmur, No edema, No gallop, No irregular rhythm, No jugular venous distention (JVD), No murmurs/extra sounds, No other, No rub, No systolic murmur Gastrointestinal: nl liver, spleen, non-tender, soft Musculoskeletal: nl extremities to inspection Extremities: normal pulses, No calf tenderness, No clubbing, No cyanosis, No edema, No other, No palpable cord, No pitting pedal edema, No tenderness 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, nl mental status, nl speech, nl strength Lymph: nl lymph nodes Results Result Diagram: 06/17/17 0347 06/17/17 0347 Results 24 hrs Laboratory Tests Test 06/16/17 21:40 06/17/17 02:50 06/17/17 03:47 06/17/17 07:37 White Blood Count 8.3 # 7.4 Red Blood Count 4.69 L 4.66 L Hemoglobin 13.3 L 12.9 L Hematocrit 41.1 L 41.0 L Mean Corpuscular Volume 87.6 88.0 Mean Corpuscular Hemoglobin 28.4 L 27.7 L Mean Corpuscular Hemoglobin Concent 32.4 31.5 L Red Cell Distribution Width 14.3 14.5 Platelet Count 203 210 Mean Platelet Volume 11.8 H 11.2 H Neutrophils % 69.2 67.2 Lymphocytes % 18.7 19.6 Monocytes % 6.4 7.1 Eosinophils % 4.5 4.6 Basophils % 0.8 1.2 Nucleated Red Blood Cells % 0.0 0.0 Neutrophils # 5.7 5.0 Lymphocytes # 1.5 1.5 Monocytes # 0.5 0.5 Eosinophils # 0.4 0.3 Basophils # 0.1 0.1 Nucleated Red Blood Cells # 0.0 0.0 Sodium Level 140 142 Potassium Level 4.0 4.0 Chloride Level 104 104 Carbon Dioxide Level 27 31 Anion Gap 13 11 Blood Urea Nitrogen 33 H 31 H Creatinine 3.38 H 3.40 H Glucose Level 116 104 Calcium Level 8.1 L 8.2 L Total Bilirubin 0.1 L Direct Bilirubin 0.00 Indirect Bilirubin 0.1 Aspartate Amino Transf (AST/SGOT) 12 L Alanine Aminotransferase (ALT/SGPT) 28 Alkaline Phosphatase 59 Troponin I 0.096 0.090 B-Type Natriuretic Peptide 50968 H Total Protein 6.3 Albumin 3.3 Globulin 3.00 Albumin/Globulin Ratio 1.10 Lipase 219 Blood Gas Specimen Source Blood arterial Arterial Blood Date Drawn 06/17/2017 8:10:54 AM Arterial Blood pH (Temp corrected) 7.346 L Arterial Blood pCO2 (Temp correct) 54.5 H Arterial Blood pO2 (Temp corrected) 94.2 Arterial Blood HCO3 29.1 H Arterial Blood Base Excess 2.2 Arterial Blood Oxygen Saturation 96.8 Luis Armando Test ACCEPTAB Arterial Blood Gas Puncture Site Left Radial Arterial Blood Carboxyhemoglobin 1.6 Arterial Blood Methemoglobin 0.2 Blood Gas A-a O2 Differential 55.7 H Oxyhemoglobin Percent 95.1 Total Hemoglobin 14.4 Blood Gas Temperature 37.0 Blood Gas Respiration Rate 16.0 Blood Gas Actual Respiration Rate 28 Blood Gas Modality MASK - BIPAP FiO2 30.0 Blood Gas IPAP/EPAP Ratio 15/5 Blood Gas Notified Whom JLD Blood Gas Notified Time 06/17/2017 8:22:48 AM Hemoglobin A1c 7.3 H Phosphorus Level 5.0 H Magnesium Level 2.0 Triglycerides Level 109 Cholesterol Level 157 LDL Cholesterol, Calculated 113 HDL Cholesterol 22 L Cholesterol/HDL Ratio 7.1 Thyroid Stimulating Hormone (TSH) 1.950 Test 06/17/17 08:07 06/17/17 11:51 Bedside Glucose 104 141 Medications Medications Current Medications Ondansetron HCl (Zofran Inj) 4 mg Q6 PRN IV nausea; Start 06/17/17 at 03:00 Albuterol (Ventolin Hfa) 2 puff Q4H PRN INH WHEEZING AND SOB; Start 06/17/17 at 03:00 Atorvastatin Calcium (Lipitor) 20 mg QHS PO ; Start 06/17/17 at 21:00 Carvedilol (Coreg) 25 mg BID PO Last administered on 06/17/17 08:53; Admin Dose 25 MG; Start 06/17/17 at 09:00 Clopidogrel Bisulfate (plaVIX) 75 mg DAILY PO Last administered on 06/17/17 08:53; Admin Dose 75 MG; Start 06/17/17 at 09:00 Insulin Glargine (Lantus) 33 unit DAILY@08 SC Last administered on 06/17/17 08:52; Admin Dose 33 UNIT; Start 06/17/17 at 08:00 Isosorbide Dinitrate (Isordil) 20 mg TID PO Last administered on 06/17/17 08: 53; Admin Dose 20 MG; Start 06/17/17 at 09:00 Diagnostic Test (Pha) (Accu-Chek) 1 ea 02 XX ; Start 06/18/17 at 02:00 Miscellaneous Information 1 ea NOTE XX ; Start 06/17/17 at 03:30 Glucose (Glutose) 15 gm Q15M PRN PO DECREASED GLUCOSE; Start 06/17/17 at 03:30 Glucose (Glutose) 22.5 gm Q15M PRN PO DECREASED GLUCOSE; Start 06/17/17 at 03: 30 Dextrose (D50w Syringe) 25 ml Q15M PRN IV DECREASED GLUCOSE; Start 06/17/17 at 03:30 Dextrose (D50w Syringe) 50 ml Q15M PRN IV DECREASED GLUCOSE; Start 06/17/17 at 03:30 Glucagon (Glucagen) 1 mg Q15M PRN IM DECREASED GLUCOSE; Start 06/17/17 at 03: 30 Glucose (Glutose) 15 gm Q15M PRN BUCCAL DECREASED GLUCOSE; Start 06/17/17 at 03:30 Influenza Virus Vaccine (Fluzone) 0.5 ml ONCE ONCE IM* ; Start 06/18/17 at 09: 00; Stop 06/18/17 at 09:01 KISHORE JOHNSON MD Jun 17, 2017 12:22
[2017-06-17] MEDS: LEVOFLOXACIN 500 MG TAB PO SCH (12:59)
[2017-06-17] MEDS: HYDROCODONE/APAP (5/325) TAB PO PRN ×2 (12:59→23:26)
[2017-06-17] MEDS: HEPARIN 5,000 UNIT/0.5 ML VIAL SC SCH ×2 (13:03→21:27)
[2017-06-17] MEDS: LEVALBUTEROL (NEB) 0.63 MG/3 ML AMP HHN SCH ×2 (13:30→19:51)
[2017-06-17] MEDS: IPRATROPIUM (NEB) 0.5 MG/2.5 ML AMP HHN SCH ×2 (13:30→19:51)
[2017-06-17] MEDS: AMOXICILLIN/CLAV 500 MG TAB PO SCH ×2 (13:56→21:20)
[2017-06-17] MEDS: ATORVASTATIN 20 MG TAB PO SCH (21:20)
[2017-06-18] VITALS (14 sets, daily range): BP systolic 114–138; BP diastolic 65–84; PULSE 50–71; RESP 17–19
[2017-06-18] MEDS: LEVALBUTEROL (NEB) 0.63 MG/3 ML AMP HHN SCH ×4 (01:48→21:04)
[2017-06-18] MEDS: ACCU-CHEK XX SCH (02:00)
[2017-06-18] MEDS: AMOXICILLIN/CLAV 500 MG TAB PO SCH ×3 (06:48→21:31)
[2017-06-18] MEDS: IPRATROPIUM (NEB) 0.5 MG/2.5 ML AMP HHN SCH ×3 (07:45→21:04)
[2017-06-18 07:59] LABS: CALCIUM 8.7 mg/dl (8.4-10.2); CREATININE 3.28 mg/dl (0.61-1.24); POTASSIUM 5.1 mmol/L (3.5-5.1)
[2017-06-18] MEDS: INSULIN ASPART [NOVOLOG] 3 ML PEN SC SCH ×4 (08:00→21:00)
[2017-06-18] MEDS: INSULIN GLARGINE [LANtus] 3 ML PEN SC SCH (08:46)
[2017-06-18] MEDS: CLOPIDOGREL 75 MG TAB PO SCH (08:58)
[2017-06-18] MEDS: FUROSEMIDE 40 MG INJ IV SCH (08:58)
[2017-06-18] MEDS: ISOSORBIDE DINITRATE 20 MG TAB PO SCH ×3 (08:58→21:31)
[2017-06-18] MEDS ORDERED: INFLUENZA VIRUS VACCINE 0.5 ML (DISPENSING) IM* ONE (09:00)
[2017-06-18] MEDS: HEPARIN 5,000 UNIT/0.5 ML VIAL SC SCH ×2 (09:02→21:33)
--- NOTE | 2017-06-18 11:03 | PN ---
Date/Time of Note Date/Time of Note DATE: 06/18/17 TIME: 10:55 Assessment/Plan VTE Prophylaxis VTE Prophylaxis Intervention: heparin Lines/Catheters IV Catheter Type (from Nrs): Saline Lock Urinary Cath still in place: No Assessment/Plan Assessment/Plan 1. CHF, acute on chronic, systolic, on lasix 2. CAD, s/p PCI/stent/CABG, resume home meds 3. Ischemic cardiomyopathy 4. Hypertension, controlled 5. CKD, stage IV, stable, follow up with BMP 6. Dyslipidemia, on statin 7. Bronchitis, likely early COPD, advise to quit smoking, neb/levaquin 8. DVT prophylaxis: heparin Subjective 24 Hr Interval Summary Free Text/Dictation still cough with shortness of breath, less than yesterday Exam/Review of Systems Vital Signs Vitals Vital Signs Date Time Temp Pulse Resp B/P Pulse Ox O2 Delivery O2 Flow Rate FiO2 06/18/17 08:00 64 06/18/17 07:51 97.8 19 133/81 96 06/18/17 07:45 Nasal Cannula 3.0 06/17/17 23:30 30 Intake and Output 06/17/17 06/17/17 06/18/17 15:00 23:00 07:00 Intake Total 50 ml 400 ml Output Total 550 ml 400 ml 1400 ml Balance -500 ml -400 ml -1000 ml Exam Constitutional: alert, obese, oriented, well developed Psych: nl mood/affect, no complaints Head: atraumatic, normocephalic Eyes: EOMI, PERRL, nl conjunctiva, nl lids ENMT: mucosa pink and moist, nl external ears & nose, nl lips & teeth, nl nasal mucosa & septum Neck: non-tender, supple Respiratory: congested cough, other (rhonchi) Cardiovascular: nl pulses, regular rate and rhythm, No S3, No S4, No bruits, No diastolic murmur, No edema, No gallop, No irregular rhythm, No jugular venous distention (JVD), No murmurs/extra sounds, No other, No rub, No systolic murmur Gastrointestinal: nl liver, spleen, non-tender, soft, No ascites, No bowel sounds, No distended, No firm, No hepatomegaly, No mass , No other, No rebound or guarding, No splenomegaly, No surgical scars, No tender Musculoskeletal: nl extremities to inspection Extremities: normal pulses, No calf tenderness, No clubbing, No cyanosis, No edema, No other, No palpable cord, No pitting pedal edema, No tenderness 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, nl mental status, nl speech, nl strength Skin: nl turgor Lymph: nl lymph nodes Results Result Diagram: 06/17/17 0347 06/18/17 0644 Results 24 hrs Laboratory Tests Test 06/17/17 11:51 06/17/17 12:48 06/17/17 17:42 06/17/17 21:23 Bedside Glucose 141 83 93 Troponin I 0.078 Test 06/18/17 06:44 06/18/17 07:41 Sodium Level 142 Potassium Level 5.1 Chloride Level 103 Carbon Dioxide Level 33 H Anion Gap 11 Blood Urea Nitrogen 41 H Creatinine 3.28 H Glucose Level 71 Calcium Level 8.7 Bedside Glucose 80 Medications Medications Current Medications Ondansetron HCl (Zofran Inj) 4 mg Q6 PRN IV nausea; Start 06/17/17 at 03:00 Albuterol (Ventolin Hfa) 2 puff Q4H PRN INH WHEEZING AND SOB; Start 06/17/17 at 03:00 Atorvastatin Calcium (Lipitor) 20 mg QHS PO Last administered on 06/17/17 21: 20; Admin Dose 20 MG; Start 06/17/17 at 21:00 Carvedilol (Coreg) 25 mg BID PO Last administered on 06/18/17 08:58; Admin Dose 25 MG; Start 06/17/17 at 09:00 Clopidogrel Bisulfate (plaVIX) 75 mg DAILY PO Last administered on 06/18/17 08:58; Admin Dose 75 MG; Start 06/17/17 at 09:00 Insulin Glargine (Lantus) 33 unit DAILY@08 SC Last administered on 06/18/17 08:46; Admin Dose 33 UNIT; Start 06/17/17 at 08:00 Isosorbide Dinitrate (Isordil) 20 mg TID PO Last administered on 06/18/17 08: 58; Admin Dose 20 MG; Start 06/17/17 at 09:00 Diagnostic Test (Pha) (Accu-Chek) 1 ea 02 XX ; Start 06/18/17 at 02:00 Miscellaneous Information 1 ea NOTE XX ; Start 06/17/17 at 03:30 Glucose (Glutose) 15 gm Q15M PRN PO DECREASED GLUCOSE; Start 06/17/17 at 03:30 Glucose (Glutose) 22.5 gm Q15M PRN PO DECREASED GLUCOSE; Start 06/17/17 at 03: 30 Dextrose (D50w Syringe) 25 ml Q15M PRN IV DECREASED GLUCOSE; Start 06/17/17 at 03:30 Dextrose (D50w Syringe) 50 ml Q15M PRN IV DECREASED GLUCOSE; Start 06/17/17 at 03:30 Glucagon (Glucagen) 1 mg Q15M PRN IM DECREASED GLUCOSE; Start 06/17/17 at 03: 30 Glucose (Glutose) 15 gm Q15M PRN BUCCAL DECREASED GLUCOSE; Start 06/17/17 at 03:30 Furosemide (Lasix) 40 mg DAILY IV Last administered on 06/18/17 08:58; Admin Dose 40 MG; Start 06/18/17 at 09:00 Heparin Sodium (Porcine) (Heparin (5000 Units/0.5 ml)) 5,000 unit BID SC Last administered on 06/18/17 09:02; Admin Dose 5,000 UNIT; Start 06/17/17 at 12: 30 Levofloxacin (Levaquin) 500 mg Q48H PO Last administered on 06/17/17 12:59; Admin Dose 500 MG; Start 06/17/17 at 12:30 Amoxicillin/ Clavulanate Potassium (Augmentin) 500 mg Q8 PO Last administered on 06/18/17 06:48; Admin Dose 500 MG; Start 06/17/17 at 14:00 Acetaminophen/ Hydrocodone Bitart ([place] (5/325)) 1 tab Q4H PRN PO 4-6 pain Last administered on 06/17/17 23:26; Admin Dose 1 TAB; Start 06/17/17 at 13: 00 KISHORE JOHNSON MD Jun 18, 2017 11:03
[2017-06-18] MEDS: ATORVASTATIN 20 MG TAB PO SCH (21:32)
[2017-06-19] VITALS (16 sets, daily range): BP systolic 109–136; BP diastolic 56–74; PULSE 59–78; RESP 16–18
[2017-06-19] MEDS: LEVALBUTEROL (NEB) 0.63 MG/3 ML AMP HHN SCH ×4 (01:41→20:16)
[2017-06-19] MEDS: ACCU-CHEK XX SCH (02:00)
[2017-06-19] MEDS: AMOXICILLIN/CLAV 500 MG TAB PO SCH ×3 (06:43→21:20)
[2017-06-19] MEDS: IPRATROPIUM (NEB) 0.5 MG/2.5 ML AMP HHN SCH ×3 (07:47→20:17)
[2017-06-19] MEDS: INSULIN ASPART [NOVOLOG] 3 ML PEN SC SCH ×4 (07:58→20:53)
[2017-06-19] MEDS: INSULIN GLARGINE [LANtus] 3 ML PEN SC SCH (08:44)
[2017-06-19] MEDS: CLOPIDOGREL 75 MG TAB PO SCH (08:45)
[2017-06-19] MEDS: HEPARIN 5,000 UNIT/0.5 ML VIAL SC SCH ×2 (08:45→21:08)
[2017-06-19] MEDS: ISOSORBIDE DINITRATE 20 MG TAB PO SCH ×3 (08:46→21:07)
[2017-06-19 08:50] LABS: CALCIUM 8.5 mg/dl (8.4-10.2); CREATININE 3.36 mg/dl (0.61-1.24); POTASSIUM 4.7 mmol/L (3.5-5.1)
[2017-06-19] MEDS: FUROSEMIDE 40 MG INJ IV SCH (08:53)
--- NOTE | 2017-06-19 11:58 | PN ---
Date/Time of Note Date/Time of Note DATE: 06/19/17 TIME: 11:57 Assessment/Plan VTE Prophylaxis VTE Prophylaxis Intervention: heparin Lines/Catheters IV Catheter Type (from Nrs): Saline Lock Urinary Cath still in place: No Assessment/Plan Assessment/Plan 1. CHF, acute on chronic, systolic, on lasix 2. CAD, s/p PCI/stent/CABG, resume home meds 3. Ischemic cardiomyopathy 4. Hypertension, controlled 5. CKD, stage IV, stable, follow up with BMP 6. Dyslipidemia, on statin 7. Bronchitis, likely early COPD, advise to quit smoking, neb/levaquin 8. DVT prophylaxis: heparin 9. Discharge plan for tomorrow Subjective 24 Hr Interval Summary Free Text/Dictation better on shortness of breath Exam/Review of Systems Vital Signs Vitals Vital Signs Date Time Temp Pulse Resp B/P Pulse Ox O2 Delivery O2 Flow Rate FiO2 06/19/17 11:29 97.8 60 18 109/64 92 06/19/17 08:54 Nasal Cannula 3.0 06/19/17 03:38 30 Intake and Output 06/18/17 06/18/17 06/19/17 15:00 23:00 07:00 Intake Total 600 ml 350 ml Output Total 1200 ml 500 ml Balance -600 ml -150 ml Exam Constitutional: alert, obese, oriented, well developed Psych: nl mood/affect, no complaints Head: atraumatic, normocephalic Eyes: EOMI, PERRL, nl conjunctiva, nl lids ENMT: nl external ears & nose, nl lips & teeth, nl nasal mucosa & septum Neck: non-tender, supple Respiratory: clear to auscultation, normal air movement, No congested cough, No crackles/rales, No diminished breath sounds, No intercostal retraction, No labored breathing, No other, No respirations, No tactile fremitus, No wheezing Cardiovascular: nl pulses, regular rate and rhythm, No S3, No S4, No bruits, No diastolic murmur, No edema, No gallop, No irregular rhythm, No jugular venous distention (JVD), No murmurs/extra sounds, No other, No rub, No systolic murmur Gastrointestinal: nl liver, spleen, non-tender, soft Musculoskeletal: nl extremities to inspection Extremities: normal pulses 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, nl mental status, nl speech, nl strength Results Result Diagram: 06/17/17 0347 06/19/17 0807 Results 24 hrs Laboratory Tests Test 06/18/17 12:09 06/18/17 17:07 06/18/17 21:28 06/19/17 07:56 Bedside Glucose 136 84 135 109 Test 06/19/17 08:07 Sodium Level 143 Potassium Level 4.7 Chloride Level 105 Carbon Dioxide Level 31 Anion Gap 12 Blood Urea Nitrogen 42 H Creatinine 3.36 H Glucose Level 107 Calcium Level 8.5 Medications Medications Current Medications Ondansetron HCl (Zofran Inj) 4 mg Q6 PRN IV nausea; Start 06/17/17 at 03:00 Albuterol (Ventolin Hfa) 2 puff Q4H PRN INH WHEEZING AND SOB; Start 06/17/17 at 03:00 Atorvastatin Calcium (Lipitor) 20 mg QHS PO Last administered on 06/18/17 21: 32; Admin Dose 20 MG; Start 06/17/17 at 21:00 Carvedilol (Coreg) 25 mg BID PO Last administered on 06/19/17 08:45; Admin Dose 25 MG; Start 06/17/17 at 09:00 Clopidogrel Bisulfate (plaVIX) 75 mg DAILY PO Last administered on 06/19/17 08:45; Admin Dose 75 MG; Start 06/17/17 at 09:00 Insulin Glargine (Lantus) 33 unit DAILY@08 SC Last administered on 06/19/17 08:44; Admin Dose 33 UNIT; Start 06/17/17 at 08:00 Isosorbide Dinitrate (Isordil) 20 mg TID PO Last administered on 06/19/17 08: 46; Admin Dose 20 MG; Start 06/17/17 at 09:00 Diagnostic Test (Pha) (Accu-Chek) 1 ea 02 XX ; Start 06/18/17 at 02:00 Miscellaneous Information 1 ea NOTE XX ; Start 06/17/17 at 03:30 Glucose (Glutose) 15 gm Q15M PRN PO DECREASED GLUCOSE; Start 06/17/17 at 03:30 Glucose (Glutose) 22.5 gm Q15M PRN PO DECREASED GLUCOSE; Start 06/17/17 at 03: 30 Dextrose (D50w Syringe) 25 ml Q15M PRN IV DECREASED GLUCOSE; Start 06/17/17 at 03:30 Dextrose (D50w Syringe) 50 ml Q15M PRN IV DECREASED GLUCOSE; Start 06/17/17 at 03:30 Glucagon (Glucagen) 1 mg Q15M PRN IM DECREASED GLUCOSE; Start 06/17/17 at 03: 30 Glucose (Glutose) 15 gm Q15M PRN BUCCAL DECREASED GLUCOSE; Start 06/17/17 at 03:30 Furosemide (Lasix) 40 mg DAILY IV Last administered on 06/19/17 08:53; Admin Dose 40 MG; Start 06/18/17 at 09:00 Heparin Sodium (Porcine) (Heparin (5000 Units/0.5 ml)) 5,000 unit BID SC Last administered on 06/19/17 08:45; Admin Dose 5,000 UNIT; Start 06/17/17 at 12: 30 Levofloxacin (Levaquin) 500 mg Q48H PO Last administered on 06/17/17 12:59; Admin Dose 500 MG; Start 06/17/17 at 12:30 Amoxicillin/ Clavulanate Potassium (Augmentin) 500 mg Q8 PO Last administered on 06/19/17 06:43; Admin Dose 500 MG; Start 06/17/17 at 14:00 Acetaminophen/ Hydrocodone Bitart ([place] (5/325)) 1 tab Q4H PRN PO 4-6 pain Last administered on 06/17/17 23:26; Admin Dose 1 TAB; Start 06/17/17 at 13: 00 KISHORE JOHNSON MD Jun 19, 2017 11:58
[2017-06-19] MEDS: LEVOFLOXACIN 500 MG TAB PO SCH (13:07)
[2017-06-19] MEDS: ATORVASTATIN 20 MG TAB PO SCH (21:06)
[2017-06-19] MEDS: HYDROCODONE/APAP (5/325) TAB PO PRN (21:20)
[2017-06-20] VITALS (14 sets, daily range): BP systolic 123–154; BP diastolic 65–92; PULSE 58–80; RESP 17–20
[2017-06-20] MEDS: ACCU-CHEK XX SCH (01:16)
[2017-06-20] MEDS: LEVALBUTEROL (NEB) 0.63 MG/3 ML AMP HHN SCH ×5 (01:54→20:20)
[2017-06-20] MEDS: AMOXICILLIN/CLAV 500 MG TAB PO SCH ×3 (05:52→22:51)
[2017-06-20 07:17] LABS: CALCIUM 8.6 mg/dl (8.4-10.2); CREATININE 3.33 mg/dl (0.61-1.24); POTASSIUM 4.8 mmol/L (3.5-5.1)
[2017-06-20] MEDS: IPRATROPIUM (NEB) 0.5 MG/2.5 ML AMP HHN SCH ×4 (07:44→20:20)
[2017-06-20] MEDS: INSULIN ASPART [NOVOLOG] 3 ML PEN SC SCH ×4 (08:00→20:52)
[2017-06-20] MEDS: CLOPIDOGREL 75 MG TAB PO SCH (08:20)
[2017-06-20] MEDS: ISOSORBIDE DINITRATE 20 MG TAB PO SCH ×3 (08:21→20:46)
[2017-06-20] MEDS: FUROSEMIDE 40 MG INJ IV SCH (08:22)
[2017-06-20] MEDS: HEPARIN 5,000 UNIT/0.5 ML VIAL SC SCH ×2 (08:28→20:50)
[2017-06-20] MEDS: INSULIN GLARGINE [LANtus] 3 ML PEN SC SCH (08:29)
--- NOTE | 2017-06-20 13:01 | PN ---
Date/Time of Note Date/Time of Note DATE: 06/20/17 TIME: 12:58 Assessment/Plan VTE Prophylaxis VTE Prophylaxis Intervention: heparin Lines/Catheters IV Catheter Type (from Nrs): Saline Lock Urinary Cath still in place: No Assessment/Plan Assessment/Plan 1. CHF, acute on chronic, systolic, on lasix 2. CAD, s/p PCI/stent/CABG, resume home meds 3. Ischemic cardiomyopathy 4. Hypertension, controlled 5. CKD, stage IV, stable, follow up with BMP 6. Dyslipidemia, on statin 7. Bronchitis, likely early COPD, advise to quit smoking, neb/levaquin 8. DVT prophylaxis: heparin 9. Discussed about discharge plan, home tomorrow Subjective 24 Hr Interval Summary Free Text/Dictation less shortness of breath and cough Exam/Review of Systems Vital Signs Vitals Vital Signs Date Time Temp Pulse Resp B/P Pulse Ox O2 Delivery O2 Flow Rate FiO2 06/20/17 12:04 62 06/20/17 11:49 97.6 19 127/66 97 06/20/17 07:45 Nasal Cannula 3.0 06/20/17 05:18 30 Intake and Output 06/19/17 06/19/17 06/20/17 15:00 23:00 07:00 Intake Total 800 ml 200 ml Output Total 1650 ml 1200 ml Balance -850 ml -1000 ml Exam Constitutional: alert, obese, oriented, well developed Psych: nl mood/affect, no complaints Head: atraumatic, normocephalic Eyes: EOMI, nl conjunctiva, nl lids ENMT: nl external ears & nose, nl lips & teeth, nl nasal mucosa & septum Neck: non-tender, supple Respiratory: clear to auscultation, normal air movement, No congested cough, No crackles/rales, No diminished breath sounds, No intercostal retraction, No labored breathing, No other, No respirations, No tactile fremitus, No wheezing Cardiovascular: nl pulses, regular rate and rhythm, No S3, No S4, No bruits, No diastolic murmur, No edema, No gallop, No irregular rhythm, No jugular venous distention (JVD), No murmurs/extra sounds, No other, No rub, No systolic murmur Gastrointestinal: nl liver, spleen, non-tender, soft Musculoskeletal: nl extremities to inspection Extremities: normal pulses, No calf tenderness, No clubbing, No cyanosis, No edema, No other, No palpable cord, No pitting pedal edema, No tenderness Neurological: AREA CAPTAIN II-XII intact, nl mental status, nl speech, nl strength Skin: nl turgor Lymph: nl lymph nodes Results Result Diagram: 06/17/17 0347 06/20/17 0524 Results 24 hrs Laboratory Tests Test 06/19/17 17:21 06/19/17 18:00 06/19/17 20:51 06/20/17 05:24 Bedside Glucose 113 113 Magnesium Level 2.2 Sodium Level 146 H Potassium Level 4.8 Chloride Level 103 Carbon Dioxide Level 33 H Anion Gap 15 Blood Urea Nitrogen 45 H Creatinine 3.33 H Glucose Level 93 Calcium Level 8.6 Test 06/20/17 07:53 06/20/17 11:47 Bedside Glucose 87 131 Medications Medications Current Medications Ondansetron HCl (Zofran Inj) 4 mg Q6 PRN IV nausea; Start 06/17/17 at 03:00 Albuterol (Ventolin Hfa) 2 puff Q4H PRN INH WHEEZING AND SOB; Start 06/17/17 at 03:00 Atorvastatin Calcium (Lipitor) 20 mg QHS PO Last administered on 06/19/17 21: 06; Admin Dose 20 MG; Start 06/17/17 at 21:00 Carvedilol (Coreg) 25 mg BID PO Last administered on 06/20/17 08:22; Admin Dose 25 MG; Start 06/17/17 at 09:00 Clopidogrel Bisulfate (plaVIX) 75 mg DAILY PO Last administered on 06/20/17 08:20; Admin Dose 75 MG; Start 06/17/17 at 09:00 Insulin Glargine (Lantus) 33 unit DAILY@08 SC Last administered on 06/20/17 08:29; Admin Dose 33 UNIT; Start 06/17/17 at 08:00 Isosorbide Dinitrate (Isordil) 20 mg TID PO Last administered on 06/20/17 08: 21; Admin Dose 20 MG; Start 06/17/17 at 09:00 Diagnostic Test (Pha) (Accu-Chek) 1 ea 02 XX ; Start 06/18/17 at 02:00 Miscellaneous Information 1 ea NOTE XX ; Start 06/17/17 at 03:30 Glucose (Glutose) 15 gm Q15M PRN PO DECREASED GLUCOSE; Start 06/17/17 at 03:30 Glucose (Glutose) 22.5 gm Q15M PRN PO DECREASED GLUCOSE; Start 06/17/17 at 03: 30 Dextrose (D50w Syringe) 25 ml Q15M PRN IV DECREASED GLUCOSE; Start 06/17/17 at 03:30 Dextrose (D50w Syringe) 50 ml Q15M PRN IV DECREASED GLUCOSE; Start 06/17/17 at 03:30 Glucagon (Glucagen) 1 mg Q15M PRN IM DECREASED GLUCOSE; Start 06/17/17 at 03: 30 Glucose (Glutose) 15 gm Q15M PRN BUCCAL DECREASED GLUCOSE; Start 06/17/17 at 03:30 Furosemide (Lasix) 40 mg DAILY IV Last administered on 06/20/17 08:22; Admin Dose 40 MG; Start 06/18/17 at 09:00 Heparin Sodium (Porcine) (Heparin (5000 Units/0.5 ml)) 5,000 unit BID SC Last administered on 06/20/17 08:28; Admin Dose 5,000 UNIT; Start 06/17/17 at 12: 30 Levofloxacin (Levaquin) 500 mg Q48H PO Last administered on 06/19/17 13:07; Admin Dose 500 MG; Start 06/17/17 at 12:30 Amoxicillin/ Clavulanate Potassium (Augmentin) 500 mg Q8 PO Last administered on 06/20/17 05:52; Admin Dose 500 MG; Start 06/17/17 at 14:00 Acetaminophen/ Hydrocodone Bitart ([place] (5/325)) 1 tab Q4H PRN PO 4-6 pain Last administered on 06/19/17 21:20; Admin Dose 1 TAB; Start 06/17/17 at 13: 00 KISHORE JOHNSON MD Jun 20, 2017 13:01
[2017-06-20] MEDS: ATORVASTATIN 20 MG TAB PO SCH (20:46)
[2017-06-20] MEDS: HYDROCODONE/APAP (5/325) TAB PO PRN (20:46)
[2017-06-21] VITALS (11 sets, daily range): BP systolic 133–151; BP diastolic 77–89; PULSE 54–82; RESP 19–21
[2017-06-21] MEDS: ACCU-CHEK XX SCH (02:00)
[2017-06-21] MEDS: LEVALBUTEROL (NEB) 0.63 MG/3 ML AMP HHN SCH ×3 (02:28→13:56)
[2017-06-21] MEDS: AMOXICILLIN/CLAV 500 MG TAB PO SCH ×2 (05:28→12:43)
[2017-06-21] MEDS: HYDROCODONE/APAP (5/325) TAB PO PRN (05:37)
[2017-06-21] MEDS: IPRATROPIUM (NEB) 0.5 MG/2.5 ML AMP HHN SCH ×2 (07:35→13:56)
[2017-06-21] MEDS: INSULIN ASPART [NOVOLOG] 3 ML PEN SC SCH ×3 (08:00→18:05)
[2017-06-21] MEDS: CLOPIDOGREL 75 MG TAB PO SCH (08:34)
[2017-06-21] MEDS: ISOSORBIDE DINITRATE 20 MG TAB PO SCH ×2 (08:34→13:13)
[2017-06-21] MEDS: FUROSEMIDE 40 MG INJ IV SCH (08:36)
[2017-06-21] MEDS: HEPARIN 5,000 UNIT/0.5 ML VIAL SC SCH (08:41)
[2017-06-21] MEDS: INSULIN GLARGINE [LANtus] 3 ML PEN SC SCH (08:41)
[2017-06-21] MEDS ORDERED: AMOX1TAB9 PO (11:25)
--- NOTE | 2017-06-21 11:31 | DS ---
Date/Time of Note Date/Time of Note DATE: 06/21/17 TIME: 11:26 Discharge Summary Admission/Discharge Info Admit Date/Time Jun 16, 2017 at 23:33 Discharge Date/Time Discharge Diagnosis 1. CHF, acute on chronic, systolic, improved, follow up with cardiology 2. CAD, s/p PCI/stent/CABG, stable 3. Ischemic cardiomyopathy 4. Hypertension, controlled 5. CKD, stage IV, stable, follow up with PCP 6. Dyslipidemia, on statin 7. Bronchitis, likely early COPD, advise to quit smoking, improved Patient Condition: Stable Hx of Present Illness . Hospital Course This is a 52-year-old morbidly obese male with BMI of almost 41, with history of hypertension, CAD with stent, CABG, ischemic cardiomyopathy with a decreased systolic function with EF of 40%, CKD, DONALD presented to ER complaining of shortness of breath. He said symptom has been progressively getting worse for the past few days. He denied chest pain. He said he has been compliant with his home medications including Lasix. Patient was admitted here about 3 weeks ago for CHF exacerbation and acute on CKD. He was diuresed with removal of about 10 L and he was discharged after his symptoms improved. When he presented to the ER today, BP was 184/106, RR 24, O2 sats 94% on 2 L. Chest x-ray showed pulmonary vascular congestion. BNP is 16,200. Creatinine 3.38 and stable. Patient was placed on BiPAP while he was in the ER. Patient is treated with diuretics for CHF, along with antibiotics/nebulizer for acute bronchitis/COPD. Symptoms improved. Patient is strongly advised to quit smoking. Patient chronic kidney disease with stable Cr level. LAst Cr is 3.33 on 2015. Home Meds Active Scripts Amoxicillin/Potassium Clav (Amox-Clav 500-125 mg Tablet) 500-125 mg Tab, 500 MG PO Q8 for 5 Days, TAB Prov:KISHORE JOHNSON MD 06/21/17 Atorvastatin Calcium* (Atorvastatin Calcium*) 20 Mg Tablet, 20 MG PO QHS for 30 Days, #30 TAB Prov:ANMOL GILL MD 05/28/17 Furosemide* (Furosemide*) 40 Mg Tablet, 80 MG PO BID, #60 TAB Prov:ANMOL GILL MD 05/28/17 Albuterol Sulfate* (Proair HFA*) 8.5 Gm Hfa.aer.ad, 2 PUFF INH Q4H Y for WHEEZING AND SOB, #1 INHALER Prov:HANNAH ONOFRE MERINGUER 05/18/17 Allopurinol* (Allopurinol*) 100 Mg Tablet, 100 MG PO BID, #60 TAB Prov:HANNAH ONOFRE MERINGUER 05/18/17 Insulin Glargine* (Lantus*) 100 Unit/Ml Soln, 33 UNIT SC DAILY@08, #30 UNIT Prov:HANNAH ONOFRE MERINGUER 05/18/17 Isosorbide Dinitrate* (Isordil*) 10 Mg Tablet, 20 MG PO TID, #90 TAB 3 Refills Prov:CHOCO MONTOYAAmerico 04/14/17 Reported Medications Carvedilol* (Carvedilol*) 25 Mg Tablet, 25 MG PO BID, #60 TAB 03/19/17 Clopidogrel Bisulfate (Clopidogrel) 75 Mg Tablet, 75 MG PO DAILY, #30 TAB 03/19/17 Glipizide* (Glipizide*) 5 Mg Tablet, 5 MG PO AC BREAKFAST DINNER, TAB 03/19/17 Follow-up Plan cardiology and PCP in one week Primary Care Provider Souleymane Carrion MD Pending Labs Laboratory Tests Test 06/20/17 11:47 06/20/17 17:26 06/20/17 20:52 06/21/17 07:47 Bedside Glucose 131mg/dL (70-220) 118mg/dL (70-220) 106mg/dL (70-220) 107mg/dL (70-220) KISHORE JOHNSON MD Jun 21, 2017 11:31
[2017-06-21] MEDS: LEVOFLOXACIN 500 MG TAB PO SCH (12:05)
== END 2017-06-21 19:20 | disposition home or self-care (01) | DRG 291 ==
LOC: E/R 20:43 → MS4 23:33
PROVIDERS: ADMIT Family Medicine; ATTEND Family Medicine
PROC: 5A09357 Assistance with Respiratory Ventilation, Less than 24 Consecutive Hours, Continuous Positive Airway Pressure (ICD-10-PCS; principal; 2017-06-16)
DX: I13.0 Hypertensive heart and chronic kidney disease with heart failure and stage 1 through stage 4 chronic kidney disease, or unspecified chronic kidney disease (principal); I50.23 Acute on chronic systolic (congestive) heart failure; J96.01 Acute respiratory failure with hypoxia; J96.02 Acute respiratory failure with hypercapnia; N18.4 Chronic kidney disease, stage 4 (severe); J44.0 Chronic obstructive pulmonary disease with (acute) lower respiratory infection; I25.10 Atherosclerotic heart disease of native coronary artery without angina pectoris; I25.5 Ischemic cardiomyopathy; E78.5 Hyperlipidemia, unspecified; G47.33 Obstructive sleep apnea (adult) (pediatric); E66.01 Morbid (severe) obesity due to excess calories; Z68.39 Body mass index [BMI] 39.0-39.9, adult; E66.9 Obesity, unspecified; J20.9 Acute bronchitis, unspecified; Z95.5 Presence of coronary angioplasty implant and graft; Z95.1 Presence of aortocoronary bypass graft; F17.200 Nicotine dependence, unspecified, uncomplicated
CPT/HCPCS: 36415; 36600; 71010; 80048; 80053; 80061; 82803; 82962; 83036; 83690; 83735; 83880; 84100; 84443; 84484; 85025; 90686; 94640; 94660; 94664; 96374; 96375; J1644; J1815; J1940

== ENCOUNTER 2017-08-16 21:51 | Inpatient (IN) | END 2017-10-31 19:45 | DRG 4 ==

== ENCOUNTER 2018-04-07 18:20 | Inpatient (IN) | END 2018-04-10 16:40 | DRG 291 ==

== ENCOUNTER → 2018-07-30 | Day surgery (SDC) | END | disposition home or self-care (01) ==

== ENCOUNTER 2018-09-19 09:08 | Day surgery (SDC) | payer MEDICARE, BC ==
[~2018-09-19] VITALS: Ht 180.3 cm; Wt 130.7 kg
[2018-09-19] VITALS (15 sets, daily range): BP systolic 114–133; BP diastolic 70–90; PULSE 82–92; RESP 16–25; Ht 180.3 cm; Wt 130.7 kg
[~2018-09-19 09:08] MED LIST changes: +ACET-2047 PO; -ALBU8.5H3 INH; -ALLO100T PO; +ASPI-817 PO; -ATOR20TA38 PO; +ATOR20TA65 PO; +CARV12.579 PO; -CARV25TA79 PO; +CLON-379 PO; -CLOP75TA27 PO; -FURO40TA4 PO; +GABA100C14 PO; -GLIP5TAB13 PO; +IPRA3AMP29 INHALATION; -ISOS10TA2 PO; -LANT3I SC; +LOSA25TA12 PO; +NOVO3I SC; +OMEP20CA16 PO
[2018-09-19] MEDS ORDERED: CHOL100062 PO (10:21)
[2018-09-19] MEDS ORDERED: ACET-141 PO (10:22)
[2018-09-19] MEDS ORDERED: ASPI-903 PO (10:23)
[2018-09-19] MEDS ORDERED: INSU100I33 SC (10:24)
[2018-09-19] MEDS ORDERED: CLON-379 PO (10:25)
[2018-09-19] MEDS ORDERED: NOVO3I SC (10:27)
[2018-09-19] MEDS ORDERED: PANT40TA4 PO (10:30)
[2018-09-19] MEDS ORDERED: D-ME473S2 PO (10:30)
[2018-09-19] MEDS ORDERED: SENN-36 PO (10:31)
[2018-09-19] MEDS ORDERED: LACTINEXG GTB (10:32)
--- NOTE | 2018-09-19 11:18 | PREAC ---
Date/Time of Note Date/Time of Note DATE: 09/19/18 TIME: 11:16 Anesthesia Eval and Record Evaluation Time Pre-Procedure Interview DATE: 09/19/18 TIME: 11:16 Age 53 Sex male NPO: 8 hrs Preoperative diagnosis ESRD Planned procedure Left AV fistula creation Past Medical History Past Medical History: Includes Cardio: HTN, Dyslipidemia, CAD, CABG, Arrythmia Endo: Diabetes Pulm: COPD Neuro: CVA Musculoskeletal: Osteoarthritis Renal: ESRD on dialysis, HD last: (09/18/2018) GI: Morbid obesity Surgery & Anesthesia Issues No known issue Meds Anticoagulation: No Beta Cassie within 24 hr: Yes Active Scripts Carvedilol* (Carvedilol*) 12.5 Mg Tablet, 12.5 MG PO BID, #60 TAB Prov:HANNAH ONOFRE [employer]IES DIRECTOR 10/31/17 Reported Medications Acidophilus-Bulgaricus* (BD Lactinex*) 1 Pkt Packet, 1 PKT GTB DAILY, PACKET 09/19/18 Sennosides* (Senokot*) 8.6 Mg Tablet, 1 TAB PO BID PRN for CONSTIPATION, TAB 09/19/18 Dextromethorphan Hb-Promethazine Hcl* (Promethazine DM* Syrup) 473 Ml Syrup, 5 ML PO Q6 PRN for COUGH, ML 09/19/18 Pantoprazole* (Pantoprazole*) 40 Mg Tablet.dr, 40 MG PO AC BREAKFAST, TAB 09/19/18 Clonidine Hcl* (Clonidine Hcl*) 0.1 Mg Tab, 0.1 MG PO DAILY, TAB HOLD IF SBP<130 09/19/18 Aspirin* (Aspirin* Chew) 81 Mg Tab.chew, 81 MG PO DAILY, TAB.CHEW 09/19/18 Acetaminophen* (Acetaminophen*) 500 MG Extra Strength Tablet, 1000 MG PO Q6H PRN for PAIN AND OR ELEVATED TEMP, TAB 09/19/18 Cholecalciferol* (Vitamin D3*) 1,000 Unit Tablet, 1000 UNIT PO DAILY, TAB 09/19/18 Omeprazole* (Omeprazole*) 20 Mg Capsule.dr, 20 MG PO DAILY, #30 CAP 07/30/18 Gabapentin* (Gabapentin*) 100 Mg Capsule, 100 MG PO QHS, #90 CAP 04/07/18 Atorvastatin Calcium (Atorvastatin Calcium) 20 Mg Tablet, 20 MG PO QHS, #30 TAB 04/07/18 Ipratropium-Albuterol (Ipratropium-Albuterol) 0.5-3 Mg/3 Ml Ampul.neb, 3 ML INHALATION Q6 PRN for WHEEZING AND SOB, #30 VIAL 04/07/18 Losartan Potassium* (Losartan Potassium*) 25 Mg Tablet, 25 MG PO BID, TAB 04/07/18 Discontinued Reported Medications Insulin Aspart* (Novolog Insulin Pen*) 100 Unit/Ml Soln, 4-10 UNITS SC .SLIDING SCALE AC, EA 09/19/18 Insulin Glargine,Hum.rec.anlog (Basaglar Kwikpen U-100) 100 Unit/1 Ml Insuln.pen, 14 UNIT SC QHS, EA 09/19/18 Insulin Aspart* (Novolog Insulin Pen*) 100 Unit/Ml Soln, 4-10 SC AC MEALS AND BEDTIME, EA IF BLOOD SUGAR IS LES THAN 70 OR MORE THAN 400 CALL MD 70-130 = 0 UNITS 131-180 = 2 UNITS 181-240 = 4 UNITS 241-300 = 6 UNITS 301-350 = 8 UNITS 351-400 =10 UNITS 07/30/18 Acetaminophen* (Acetaminophen*) 650 Mg Tablet, 650 MG PO Q6H PRN for PAIN AND OR ELEVATED TEMP, #30 TAB 07/30/18 Clonidine Hcl* (Clonidine Hcl*) 0.1 Mg Tab, 0.1 MG PO DAILY, TAB 04/07/18 Meds reviewed: Yes Allergies Coded Allergies: lisinopril (Verified Allergy, Intermediate, 09/19/18) Patient cannot tolerate the lisinopril. patient coughs. Allergies Reviewed: Yes Labs/Studies Labs Reviewed: Reviewed by anesthesiologist test: N/A Pre-procedure Exam Airway: Adequate mouth opening Mallampati: Mallampati II Teeth: Normal Lung: Normal Heart: Normal ASA Physical Status ASA physical status: 3 Emergency: None Planned Anesthetic General/MAC: LMA, MAC Planned Pain Management Parenteral pain med Pre-operative Attestations Prior to commencing anesthesia and surgery, the patient was re-evaluated, there was verification of: *The patient's identity *The results of appropriate recent lab work and preoperative vital signs *The above evaluation not changing prior to induction *Anesthetic plan, risk benefits, alternative and complications discussed with patient/family; questions answered; patient/family understands, accepts and wishes to proceed. VIRIDIANA RONDON MD Sep 19, 2018 11:18
[2018-09-19] MEDS ORDERED: BUPIVACAINE 0.25% (MPF) 30 ML INJ ONE (11:24)
[2018-09-19] MEDS ORDERED: GELATIN SIZE 100 SPONGE ONE (11:24)
[2018-09-19] MEDS ORDERED: THROMBIN 5000 UNIT VIAL ONE (11:25)
[2018-09-19] MEDS ORDERED: HEPARIN 1000 UNITS/ML 10 ML INJ ONE (11:25)
[2018-09-19] MEDS ORDERED: POLYMYXIN/BACITRACIN 1L IRRIG ONE (11:25)
[2018-09-19] MEDS ORDERED: LIDOCAINE 1% (MPF) 30 ML INJ ONE (11:25)
--- NOTE | 2018-09-19 11:25 | NUR ---
spoke w/ dr. Davis, ok not to do urinalysis for now.
[2018-09-19] MEDS ORDERED: PROPOFOL 0 ML ONE (11:56)
[2018-09-19] MEDS ORDERED: FENTAnyl 50 MCG/ML VIAL ONE (11:57)
[2018-09-19] MEDS ORDERED: MIDAZOLAM 1 MG/ML 2 ML INJ ONE (11:57)
[2018-09-19] MEDS ORDERED: CEFAZOLIN 1 GM INJ ONE (12:08)
[2018-09-19] MEDS ORDERED: PROPOFOL 20 ML ONE (13:09)
--- NOTE | 2018-09-19 13:35 | OPR ---
Date/Time of Note Date/Time of Note DATE: 09/19/18 TIME: 13:34 Operative Report Procedure Date: Sep 19, 2018 Preoperative Diagnosis End-stage renal disease Postoperative Diagnosis End-stage renal disease Operation/Procedure Performed Left arm AV fistula placement Surgeon see signature line Employee Services Manager Lilliam Rodríguez Anesthesia Type: MAC Estimated Blood Loss: minimal Transfusion none Specimen None Grafts/Implants none Complications none Pt Condition Post Procedure: stable Disposition: PACU Procedure Description Patient was placed supine position prepped and draped in usual sterile fashion timeout was called antibiotics was given I made a 5 cm incision just distal to the left antecubital fossa incision was taken down to subcutaneous tissue which was then opened using electrocautery the basilic vein was about 3 mm in diameter was identified vessel loops were passed around the patient was given 5000 units of IV heparin brachial artery was identified vessel loops were passed around the vascular clamps were applied to the brachial artery to basilic vein was transected distally and ligated it was then anastomosed to the brachial artery in an end-to-side fashion to a 6 mm longitudinal arteriotomy 7-0 Prolene continuous suture technique the patient had a strong radial pulse and good Doppler signal over the newly constructed fistula no signs of ischemia the wound was irrigated and closed in 2 layers of 2-0 Vicryl suture for the deep 3-0 Vicryl suture for running subcuticular skin closure OFELIA ROCHE MD Sep 19, 2018 13:35
[2018-09-19] MEDS ORDERED: MEPERIDINE 25 MG INJ IV PRN (14:00)
[2018-09-19] MEDS ORDERED: hydrALAzine 20 MG INJ IV PRN (14:00)
[2018-09-19] MEDS ORDERED: HYDROmorphONE 1 MG/5 ML IV SYRINGE IV PRN ×3 (14:00)
[2018-09-19] MEDS ORDERED: DIPHENHYDRAMINE 50 MG INJ IV PRN (14:00)
[2018-09-19] MEDS ORDERED: MIDAZOLAM 1 MG/ML 2 ML INJ IV PRN (14:00)
[2018-09-19] MEDS ORDERED: LABETALOL HCL 20MG INJ IV PRN (14:00)
[2018-09-19] MEDS ORDERED: EPHEDrine SULFATE 50 MG/5 ML SYG IV PRN (14:00)
[2018-09-19] MEDS ORDERED: OXYCODONE/ACETAMINOPHEN (5/325) TAB PO PRN ×2 (14:00)
[2018-09-19] MEDS ORDERED: METOCLOPRAMIDE 10 MG INJ IV PRN (14:00)
[2018-09-19] MEDS ORDERED: FENTAnyl 50 MCG/ML VIAL IV PRN ×3 (14:00)
[2018-09-19] MEDS ORDERED: ONDANSETRON 4 MG INJ IV PRN (14:00)
--- NOTE | 2018-09-19 15:30 | PAC ---
Date/Time of Note Date/Time of Note DATE: 09/19/18 TIME: 15:29 Post-Anesthesia Notes Post-Anesthesia Note Last documented vital signs Vital Signs Date Temp Pulse Resp B/P (MAP) Pulse Ox O2 O2 Flow FiO2 Time Delivery Rate 09/19/18 98.6 13:57 09/19/18 90 16 125/90 96 Room Air 11:16 (102) Activity: WNL Respiratory function: WNL Cardiovascular function: WNL Mental status: Baseline Pain reasonably controlled: Yes Hydration appropriate: Yes Nausea/Vomiting absent: Yes VIRIDIANA RONDON MD Sep 19, 2018 15:30
--- NOTE | 2018-09-19 16:22 | NUR ---
RE: DISCHARGE PATIENT DISCHARGED HOME. ALL DISCHARGE INSTRUCTIONS EXPLAINED AND PROVIDED TO PATIENT AND FAMILY. IV REMOVED. SURGICAL SITE CLEAN AND DRY WITHOUT ANY COMPLICATIONS. PATIENT VERBALIZED READINESS FOR DISCHARGE AND UNDERSTANDING OF INSTRUCTIONS PROVIDED. STABLE TO LEAVE THE HOSPITAL.
--- NOTE | 2018-09-22 13:48 | RADRPT ---
Vent Rate: 87 bpm RR Interval: 0 msec [place] Interval: 0 msec QRS Duration: 118 msec QT Interval: 410 msec QTC Interval: 493 msec P-R-T [place]: 0 - 88 - 0 degrees Atrial fibrillation Incomplete left bundle branch block ST amp; T wave abnormality, consider inferolateral ischemia or digitalis effect Prolonged QT Abnormal ECG Electronically Signed By: Tigre Hernandez [id number]
== END 2018-09-19 16:54 | disposition home or self-care (01) ==
LOC: SDS 09:08
PROVIDERS: ATTEND Thoracic Surgery (Cardiothoracic Vascular Surgery)
DX: N18.6 End stage renal disease (principal); I12.0 Hypertensive chronic kidney disease with stage 5 chronic kidney disease or end stage renal disease; E11.9 Type 2 diabetes mellitus without complications
CPT/HCPCS: 36825; 71045; 80048; 82962; 85025; 85610; 85730; 93005; C1725; J0690; J1644; J2250; J3010

== ENCOUNTER 2018-12-07 20:08 | Inpatient (IN) | payer MEDICARE, BC ==
[~2018-12-07] VITALS: Ht 180.3 cm; Wt 132.8 kg
[~2018-12-07 20:08] MED LIST changes: +ACET-141 PO; -ACET-2047 PO; -ASPI-817 PO; +ASPI-903 PO; +CHOL100062 PO; +D-ME473S2 PO; +LACTINEXG GTB; -NOVO3I SC; +PANT40TA4 PO; +SENN-36 PO
[2018-12-08] VITALS (27 sets, daily range): BP systolic 100–149; BP diastolic 61–93; PULSE 67–89; RESP 18–20; Ht 180.3 cm; Wt 132.8 kg
[2018-12-08] MEDS: LOSARTAN 25 MG TAB PO SCH ×2 (00:10→09:00)
[2018-12-08] MEDS: HEPARIN 5,000 UNIT/1 ML VIAL SC SCH ×3 (00:10→21:00)
--- NOTE | 2018-12-08 01:17 | ERD ---
ER Documentation Chief Complaint Chief Complaint SWOLLEN LEGS AND ABD. CHEST PRESSURE, SOB - HX CHF HPI This is a very pleasant 53 female comes in because of shortness of breath. He is dialyzed yesterday. Patient is end-stage renal disease with Saturday dialysis. He said he had lower extremity swelling and increased shortness of breath including orthopnea and dyspnea on exertion. Denies any gilberto chest pain. Denies any other current complaints. ROS All systems reviewed and are negative except as per history of present illness. Medications Home Meds Active Scripts Carvedilol* (Carvedilol*) 12.5 Mg Tablet, 12.5 MG PO BID, #60 TAB Prov:HANNAH ONOFRE CREEL HAND 10/31/17 Reported Medications Acidophilus-Bulgaricus* (BD Lactinex*) 1 Pkt Packet, 1 PKT GTB DAILY, PACKET 09/19/18 Sennosides* (Senokot*) 8.6 Mg Tablet, 1 TAB PO BID PRN for CONSTIPATION, TAB 09/19/18 Dextromethorphan Hb-Promethazine Hcl* (Promethazine DM* Syrup) 473 Ml Syrup, 5 ML PO Q6 PRN for COUGH, ML 09/19/18 Pantoprazole* (Pantoprazole*) 40 Mg Tablet.dr, 40 MG PO AC BREAKFAST, TAB 09/19/18 Clonidine Hcl* (Clonidine Hcl*) 0.1 Mg Tab, 0.1 MG PO DAILY, TAB HOLD IF SBP<130 09/19/18 Aspirin* (Aspirin* Chew) 81 Mg Tab.chew, 81 MG PO DAILY, TAB.CHEW 09/19/18 Acetaminophen* (Acetaminophen*) 500 MG Extra Strength Tablet, 1000 MG PO Q6H PRN for PAIN AND OR ELEVATED TEMP, TAB 09/19/18 Cholecalciferol* (Vitamin D3*) 1,000 Unit Tablet, 1000 UNIT PO DAILY, TAB 09/19/18 Omeprazole* (Omeprazole*) 20 Mg Capsule.dr, 20 MG PO DAILY, #30 CAP 07/30/18 Gabapentin* (Gabapentin*) 100 Mg Capsule, 100 MG PO QHS, #90 CAP 04/07/18 Atorvastatin Calcium (Atorvastatin Calcium) 20 Mg Tablet, 20 MG PO QHS, #30 TAB 04/07/18 Ipratropium-Albuterol (Ipratropium-Albuterol) 0.5-3 Mg/3 Ml Ampul.neb, 3 ML INHALATION Q6 PRN for WHEEZING AND SOB, #30 VIAL 04/07/18 Losartan Potassium* (Losartan Potassium*) 25 Mg Tablet, 25 MG PO BID, TAB 04/07/18 Allergies Allergies: Coded Allergies: lisinopril (Verified Allergy, Intermediate, 09/19/18) Patient cannot tolerate the lisinopril. patient coughs. PMhx/Soc History of Surgery: Yes (CABG, 3VD, Dialysis shunt L chest) Anesthesia Reaction: No Hx Neurological Disorder: No Hx Respiratory Disorders: Yes (DONALD) Hx Cardiac Disorders: Yes (CAD, CHF, HTN) Hx Psychiatric Problems: No Hx Miscellaneous Medical Probl: Yes (DM, HTN,) Hx Alcohol Use: No Hx Substance Use: No Hx Tobacco Use: Yes Smoking Status: Current every day smoker Physical Exam Vitals Vital Signs Date Temp Pulse Resp B/P (MAP) Pulse Ox O2 O2 Flow FiO2 Time Delivery Rate 12/07/18 88 99 30 22:54 12/07/18 97.9 83 20 139/106 99 BIPAP 22:40 (117) 12/07/18 99.6 88 20 154/97 92 20:18 (116) Physical Exam Const: No acute distress Head: Atraumatic Eyes: Normal Conjunctiva ENT: Normal External Ears, Nose and Mouth. Neck: Full range of motion. No meningismus. Resp: Scattered rales bilaterally Cardio: Regular rate and rhythm, no murmurs Abd: Soft, non tender, non distended. Normal bowel sounds Skin: No petechiae or rashes Back: No midline or flank tenderness Ext: No cyanosis, or edema Neur: Awake and alert Psych: Normal Mood and Affect Result Diagram: 12/07/18 2305 12/07/18 2305 Results 24 hrs Laboratory Tests Test 12/07/18 22:37 12/07/18 23:05 Blood Gas Specimen Source Blood arterial Arterial Blood Date Drawn 12/07/2018 11:50:38 PM Arterial Blood pH (Temp corrected) 7.324 Arterial Blood pCO2 (Temp correct) 59.0 mmhg Arterial Blood pO2 (Temp corrected) 85.0 mmHG Arterial Blood HCO3 30.0 mmol/L Arterial Blood Base Excess 2.7 mmol/L Arterial Blood Oxygen Saturation 95.1 mmHG Luis Armando Test ACCEPTAB Arterial Blood Gas Puncture Site Right Radial Arterial Blood Carboxyhemoglobin 1.0 % Arterial Blood Methemoglobin 0.1 % Blood Gas A-a O2 Differential 59.6 mmHg Oxyhemoglobin Percent 94.1 % Blood Gas Temperature 37.0 C Blood Gas Respiration Rate 16.0 Blood Gas Actual Respiration Rate 24 Blood Gas Modality MASK - BIPAP FiO2 30.0 % Blood Gas Pressure Support 10 Blood Gas IPAP/EPAP Ratio 15/5 Blood Gas Notified Whom UP Blood Gas Notified Time 12/07/2018 11:58:33 PM White Blood Count 6.5 10^3/ul Red Blood Count 3.69 10^6/ul Hemoglobin 10.9 g/dl Hematocrit 34.8 % Mean Corpuscular Volume 94.3 fl Mean Corpuscular Hemoglobin 29.5 pg Mean Corpuscular Hemoglobin Concent 31.3 g/dl Red Cell Distribution Width 14.9 % Platelet Count 134 10^3/UL Mean Platelet Volume 11.1 fl Immature Granulocytes % 0.300 % Neutrophils % 57.4 % Lymphocytes % 22.7 % Monocytes % 6.5 % Eosinophils % 11.7 % Basophils % 1.4 % Nucleated Red Blood Cells % 0.0 /100WBC Immature Granulocytes # 0.020 10^3/ul Neutrophils # 3.7 10^3/ul Lymphocytes # 1.5 10^3/ul Monocytes # 0.4 10^3/ul Eosinophils # 0.8 10^3/ul Basophils # 0.1 10^3/ul Nucleated Red Blood Cells # 0.0 10^3/ul Sodium Level 139 mmol/L Potassium Level 4.4 mmol/L Chloride Level 96 mmol/L Carbon Dioxide Level 30 mmol/L Anion Gap 13 Blood Urea Nitrogen 51 mg/dl Creatinine 7.73 mg/dl Est Glomerular Filtrat Rate mL/min 7 mL/min Glucose Level 117 mg/dl Calcium Level 9.8 mg/dl Total Bilirubin 0.2 mg/dl Direct Bilirubin 0.00 mg/dl Indirect Bilirubin 0.2 mg/dl Aspartate Amino Transf (AST/SGOT) 17 IU/L Alanine Aminotransferase (ALT/SGPT) 22 IU/L Alkaline Phosphatase 57 IU/L Troponin I 0.066 ng/ml B-Type Natriuretic Peptide 94362 PG/ML Total Protein 7.3 g/dl Albumin 4.2 g/dl Globulin 3.10 g/dl Albumin/Globulin Ratio 1.35 Procedures/MDM EKG: Rate/Rhythm: [Normal Sinus Rhythm] QRS, ST, T-waves: [No changes consistent w/ acute ischemia] Impression: [No evidence of ischemia or arrhythmia] Chest X-ray 1V Interpreted by me: Soft Tissue: No acute abnormalities Bones: No acute abnormalities Mediastinum/Cardiac Silhouette/Lungs: Cardiomegaly. Increased interstitial fluid markings. Patient was placed on BiPAP with improvement of symptoms Critical Care: Time: 45 minutes, independent of any separately billable procedur al time Treatments/Evaluations: Close monitoring and treatment of unstable vital signs, cardiorespiratory, and neurologic status, while maintaining tight balance of fluid, respiratory, and cardiac interventions. Patient's heart failure symptoms is concerning for acute decompensation and will require inpatient workup and monitoring. Further w/u for ischemia, arrhythmia, PE or dissection will be deferred to the inpatient team. Accepting Care Team: Current data and ongoing care discussed. Time: 1 AM Primary Provider: Hospitalist Consulting: Deferred to inpatient team Outstanding Data: none Departure Diagnosis: Primary Impression: Acute respiratory failure with hypoxia and hypercapnia Condition: Serious PAYAM BAKER Dec 08, 2018 01:17
[2018-12-08] MEDS ORDERED: PROMETHAZINE/DM (CUP) PO PRN (03:00)
[2018-12-08] MEDS ORDERED: SENNA TAB PO PRN (03:00)
[2018-12-08] MEDS ORDERED: ACETAMINOPHEN 325 MG TAB PO PRN (03:00)
[2018-12-08] MEDS ORDERED: ONDANSETRON 4 MG INJ IV PRN (03:00)
[2018-12-08] MEDS ORDERED: ALBUTEROL/IPRATROPIUM (NEB) 3 ML AMP NEB PRN (03:00)
[2018-12-08] MEDS ORDERED: NACL 0.9% 3 ML SYG IV SCH (03:00)
--- NOTE | 2018-12-08 06:58 | HP ---
Date/Time of Note Date/Time of Note DATE: 12/08/18 TIME: 06:52 Assessment/Plan VTE Prophylaxis Pharmacological prophylaxis: heparin Lines/Catheters IV Catheter Type (from Nrs): Saline Lock Urinary Cath still in place: No (none) Assessment/Plan Assessment/Plan 1. Hypercapnic and hypoxic respiratory failure: Secondary to volume overload state, pulmonary edema -Admit to telemetry unit -Supplemental oxygen, bronchodilators -As needed BiPAP -Nephrology for dialysis 2. ESRD on HD: See #1 3. CHF with systolic dysfunction (EF 40% in 2018) -Continue cardiac meds including ARB 4. CAD with CABG: Continue cardiac medications, statin 5. Morbid obesity with a BMI of 41: BiPAP as needed -Weight reduction was advised 6. Hypertension: Continue antihypertensives. Adjust as needed 7. Diabetes: Insulin while in-house Result Diagram: 12/08/18 0530 12/07/18 2305 Results 24hrs Laboratory Tests Test 12/07/18 22:37 12/07/18 23:05 12/08/18 05:30 Blood Gas Specimen Source Blood arterial Arterial Blood Date Drawn 12/07/2018 11:50:38 PM Arterial Blood pH 7.324 L (Temp corrected) Arterial Blood pCO2 59.0 H (Temp correct) Arterial Blood pO2 85.0 (Temp corrected) Arterial Blood HCO3 30.0 H Arterial Blood Base Excess 2.7 Arterial Blood 95.1 Oxygen Saturation Luis Armando Test ACCEPTAB Arterial Blood Gas Right Radial Puncture Site Arterial 1.0 Blood Carboxyhemoglobin Arterial Blood 0.1 Methemoglobin Blood Gas A-a O2 59.6 H Differential Oxyhemoglobin Percent 94.1 Blood Gas Temperature 37.0 Blood Gas Respiration Rate 16.0 Blood Gas Actual 24 Respiration Rate Blood Gas Modality MASK - BIPAP FiO2 30.0 Blood Gas Pressure Support 10 Blood Gas IPAP/EPAP Ratio 07/01 Blood Gas Notified Whom UP Blood Gas Notified Time 12/07/2018 11:58:33 PM White Blood Count 6.5 6.5 Red Blood Count 3.69 L 3.75 L Hemoglobin 10.9 L 10.9 L Hematocrit 34.8 L 35.6 L Mean Corpuscular Volume 94.3 94.9 Mean Corpuscular Hemoglobin 29.5 29.1 Mean Corpuscular 31.3 L 30.6 L Hemoglobin Concent Red Cell Distribution Width 14.9 H 15.0 H Platelet Count 134 #L 143 Mean Platelet Volume 11.1 H 11.8 H Immature Granulocytes % 0.300 0.200 Neutrophils % 57.4 57.6 Lymphocytes % 22.7 23.5 Monocytes % 6.5 5.8 Eosinophils % 11.7 H 11.1 H Basophils % 1.4 1.8 Nucleated Red Blood Cells % 0.0 0.0 Immature Granulocytes # 0.020 0.010 Neutrophils # 3.7 3.7 Lymphocytes # 1.5 1.5 Monocytes # 0.4 0.4 Eosinophils # 0.8 H 0.7 H Basophils # 0.1 0.1 Nucleated Red Blood Cells # 0.0 0.0 Sodium Level 139 Potassium Level 4.4 Chloride Level 96 L Carbon Dioxide Level 30 Anion Gap 13 Blood Urea Nitrogen 51 H Creatinine 7.73 H Est Glomerular Filtrat 7 L Rate mL/min Glucose Level 117 Calcium Level 9.8 Total Bilirubin 0.2 Direct Bilirubin 0.00 Indirect Bilirubin 0.2 Aspartate Amino 17 Transf (AST/SGOT) Alanine 22 Aminotransferase (ALT/SGPT) Alkaline Phosphatase 57 Troponin I 0.066 B-Type Natriuretic Peptide 19639 H Total Protein 7.3 Albumin 4.2 Globulin 3.10 Albumin/Globulin Ratio 1.35 HPI/ROS Admit Date/Time Admit Date/Time Dec 08, 2018 at 01:02 Hx of Present Illness This is a 53-year-old obese male with a history of hypertension, diabetes, atrial fibrillation, CAD with CABG, cardiac arrest, dyslipidemia, CHF with systolic dysfunction, ESRD on HD who presented to ER complaining of generalized edema including his lower extremities and abdomen. He also reported shortness of breath. Denies chest pain. Chest x-ray shows Marked cardiomegaly with worsening mild to moderate central pulmonary vascular congestion and interstitial edema. PMH/Family/Social Past Medical History Medical History: other Medications Current Medications IV Flush (NS 3 ml) 3 ml PER PROTOCOL IV ; Start 12/08/18 at 03:00 Ondansetron HCl (Zofran Inj) 4 mg Q6H PRN IV NAUSEA/VOMITING; Start 12/08/18 at 03:00 Acetaminophen (Tylenol Tab) 650 mg Q6H PRN PO .PAIN 1-3 OR TEMP; Start 12/08/18 at 03:00 Heparin Sodium (Porcine) (Heparin (5000 Units/1ml)) 5,000 unit Q12 SC ; Start 12/08/18 at 09:00 Aspirin (Aspirin) 81 mg DAILY PO ; Start 12/08/18 at 09:00 Atorvastatin Calcium (Lipitor) 20 mg QHS PO ; Start 12/08/18 at 21:00 Carvedilol (Coreg) 12.5 mg BID PO Last administered on 12/08/18at 05:07; Admin Dose 12.5 MG; Start 12/08/18 at 03:00 Cholecalciferol (Vitamin D) 1,000 unit DAILY PO ; Start 12/08/18 at 09:00 Promethazine HCl/ Dextromethorphan (Phenergan-Dm) 5 ml Q6 PRN PO COUGH; Start 12/08/18 at 03:00 Gabapentin (Neurontin) 100 mg QHS PO ; Start 12/08/18 at 21:00 Albuterol/ Ipratropium (Duoneb) 3 ml Q3H RESP THERAPY PRN NEB WHEEZING AND SOB; Start 12/08/18 at 03:00 Losartan Potassium (Cozaar) 25 mg BID PO ; Start 12/08/18 at 09:00 Pantoprazole (Protonix Tab) 40 mg AC BREAKFAST PO ; Start 12/08/18 at 07:00 Senna (Senokot) 1 tab BID PRN PO CONSTIPATION; Start 12/08/18 at 03:00 Coded Allergies: lisinopril (Verified Allergy, Intermediate, 09/19/18) Patient cannot tolerate the lisinopril. patient coughs. Past Surgical History Past Surgical Hx: coronary bypass surgery Family History Significant Family History: no pertinent family hx Social History Smoking Status: Current every day smoker Exam/Review of Systems Vital Signs Vitals Vital Signs Date Temp Pulse Resp B/P (MAP) Pulse Ox O2 O2 Flow FiO2 Time Delivery Rate 12/08/18 83 96 30 04:58 12/08/18 2.0 04:58 12/08/18 Nasal 04:20 Cannula 12/08/18 98.7 20 139/91 03:48 (107) Intake and Output 12/07/18 12/07/18 12/08/18 1515:00 23:00 07:00 IntakeIntake Total 120 ml OutputOutput Total 150 ml BalanceBalance -30 ml Exam Constitutional: well developed Head: normocephalic Eyes: PERRL Neck: supple Respiratory: normal air movement Cardiovascular: nl pulses Gastrointestinal: soft Extremities: normal pulses PAYAM LINDER MD Dec 08, 2018 06:58
[2018-12-08] MEDS: CHOLECALCIFEROL 1,000 UNIT TAB PO SCH (08:32)
[2018-12-08] MEDS: PANTOPRAZOLE (EC) 40 MG TAB PO SCH (08:32)
[2018-12-08] MEDS: ASPIRIN 81 MG TAB PO SCH (08:32)
--- NOTE | 2018-12-08 13:33 | QN ---
Documentation Comment seen and examined ARNULFO RICHTER MD Dec 08, 2018 13:33
[2018-12-08] MEDS ORDERED: HEPARIN 1000 UNITS/ML 10 ML INJ CATHETER SCH (14:00)
--- NOTE | 2018-12-08 15:26 | PN ---
Date/Time of Note Date/Time of Note DATE: 12/08/18 TIME: 15:23 Assessment/Plan VTE Prophylaxis Risk score (from Nsg)>0 risk: 3 SCD applied (from Nsg): Yes Pharmacological prophylaxis: heparin Lines/Catheters IV Catheter Type (from Nrsg): Saline Lock Urinary Cath still in place: No (none) Assessment/Plan Hospital Course SUBJECTIVE: Continues to have dyspnea. Denies any chest pain. OBJECTIVE: Physical Exam General: Morbidly obese 53 year-old male lying in bed in no apparent distress. HEENT: Normocephalic, atraumatic. Eyes: Anicteric sclerae, conjunctivae clear. ENT: Nasal septum midline, oral mucosa moist. Neck: Short and obese. Respiratory: Bilaterally diminished breath sounds. Minimal use of accessory muscles of respiration. Bibasilar Rales. Cardiovascular: S1, S2 heard. Irregularly irregular rhythm. Abdomen: Soft, nontender, and nondistended. Bowel sounds positive in all 4 quadrants. Genitourinary: Deferred. Extremities: No cyanosis, no clubbing. Bilateral lower extremity 1+ pitting edema. Neurologic: Cranial nerves II through XII grossly intact. The patient is awake, alert, and oriented. Labs & Vitals per chart ASSESSMENT & PLAN This is a 53-year-old male with past medical history of PEA cardiac arrest, CAD status post CABG, ischemic cardiomyopathy, chronic nonhemorrhagic infarcts within the bilateral occipital lobes, paroxysmal atrial fibrillation, end-stage renal disease on hemodialysis (Tuesdays//Saturdays), diabetes mellitus type 2, systemic hypertension, pulmonary hypertension, anemia, and obesity. The patient came to the emergency room because of dyspnea and increasing edema of bilateral lower extremities. The patient's chest x-ray showed mild cardiomegaly with worsening mild to moderate central pulmonary vascular congestion and interstitial edema with small bilateral pleural effusions. The patient was admitted to inpatient setting for further treatment and evaluation. 1. Acute respiratory failure. -Hypoxic and hypercapnic. -Most probably secondary to missed hemodialysis. -Nephrology has been consulted and the patient is going to get hemodialysis. -Continue supplemental oxygen and NIPPV as indicated. 2. Acute decompensated congestive heart failure. -Continue hemodialysis. 3. Atrial fibrillation. -Rate controlled. -Needs systemic anticoagulation, provided his history of embolic stroke. -Obtain Cardiology consult. 4. ESRD on HD. -Continue hemodialysis. 5. Diabetes mellitus type II. -Hemoglobin A1c 6.7. -Continue sliding scale insulin. 6. Ischemic cardiomyopathy. -Continue beta-blockers and ARB's. 7. CAD, status post coronary artery bypass grafting. -Continue aspirin and statins. 8. Hypertension. -Continue antihypertensives. 9. Anemia. -Normocytic and normochromic. -Probably anemia of CKD. -Monitor H&H closely. 10. Morbid obesity. -BMI more than 40. 11. Fluids, electrolytes, and nutrition. -Carbohydrate controlled diet. 12. DVT prophylaxis. -Subcutaneous heparin. 13. Plan. -Continue hemodialysis. -Continue supplemental oxygen and NIPPV. -Obtain cardiology consult. The patient was seen in collaboration with Dr. Strickland. . Result Diagram: 12/08/1852912/08/1830 Results 24hrs Laboratory Tests Test 12/07/18 22:37 12/07/18 23:05 12/08/18 05:30 Blood Gas Specimen Source Blood arterial Arterial Blood Date Drawn 12/07/2018 11:50:38 PM Arterial Blood pH 7.324 L (Temp corrected) Arterial Blood pCO2 59.0 H (Temp correct) Arterial Blood pO2 85.0 (Temp corrected) Arterial Blood HCO3 30.0 H Arterial Blood Base Excess 2.7 Arterial Blood 95.1 Oxygen Saturation Luis Armando Test ACCEPTAB Arterial Blood Gas Right Radial Puncture Site Arterial 1.0 Blood Carboxyhemoglobin Arterial Blood 0.1 Methemoglobin Blood Gas A-a O2 59.6 H Differential Oxyhemoglobin Percent 94.1 Blood Gas Temperature 37.0 Blood Gas Respiration Rate 16.0 Blood Gas Actual 24 Respiration Rate Blood Gas Modality MASK - BIPAP FiO2 30.0 Blood Gas Pressure Support 10 Blood Gas IPAP/EPAP Ratio 15 Blood Gas Notified Whom UP Blood Gas Notified Time 12/07/2018 11:58:33 PM White Blood Count 6.5 6.5 Red Blood Count 3.69 L 3.75 L Hemoglobin 10.9 L 10.9 L Hematocrit 34.8 L 35.6 L Mean Corpuscular Volume 94.3 94.9 Mean Corpuscular Hemoglobin 29.5 29.1 Mean Corpuscular 31.3 L 30.6 L Hemoglobin Concent Red Cell Distribution Width 14.9 H 15.0 H Platelet Count 134 #L 143 Mean Platelet Volume 11.1 H 11.8 H Immature Granulocytes % 0.300 0.200 Neutrophils % 57.4 57.6 Lymphocytes % 22.7 23.5 Monocytes % 6.5 5.8 Eosinophils % 11.7 H 11.1 H Basophils % 1.4 1.8 Nucleated Red Blood Cells % 0.0 0.0 Immature Granulocytes # 0.020 0.010 Neutrophils # 3.7 3.7 Lymphocytes # 1.5 1.5 Monocytes # 0.4 0.4 Eosinophils # 0.8 H 0.7 H Basophils # 0.1 0.1 Nucleated Red Blood Cells # 0.0 0.0 Sodium Level 139 141 Potassium Level 4.4 4.8 Chloride Level 96 L 96 L Carbon Dioxide Level 30 30 Anion Gap 13 15 H Blood Urea Nitrogen 51 H 55 H Creatinine 7.73 H 8.14 H Est Glomerular Filtrat 7 L 7 L Rate mL/min Glucose Level 117 134 Calcium Level 9.8 9.8 Total Bilirubin 0.2 0.4 Direct Bilirubin 0.00 0.00 Indirect Bilirubin 0.2 0.4 Aspartate Amino 17 18 Transf (AST/SGOT) Alanine 22 29 Aminotransferase (ALT/SGPT) Alkaline Phosphatase 57 56 Troponin I 0.066 B-Type Natriuretic Peptide 80418 H Total Protein 7.3 7.4 Albumin 4.2 4.2 Globulin 3.10 3.20 Albumin/Globulin Ratio 1.35 1.31 Hemoglobin A1c 6.7 H Magnesium Level 1.7 Triglycerides Level 113 Cholesterol Level 83 L LDL Cholesterol, Calculated 42 HDL Cholesterol 18 L Cholesterol/HDL Ratio 4.6 Exam/Review of Systems Exam Vitals Vital Signs Date Temp Pulse Resp B/P (MAP) Pulse Ox O2 O2 Flow FiO2 Time Delivery Rate 12/08/18 75 12:53 12/08/18 98.0 20 124/74 99 12:05 (91) 12/08/18 4.0 08:12 12/08/18 30 08:10 12/08/18 Nasal 08:00 Cannula Intake and Output 12/07/18 12/07/18 12/08/18 1515:00 23:00 07:00 IntakeIntake Total 120 ml OutputOutput Total 150 ml BalanceBalance -30 ml Results Results 24hrs Laboratory Tests Test 12/07/18 22:37 12/07/18 23:05 12/08/18 05:30 Blood Gas Specimen Source Blood arterial Arterial Blood Date Drawn 12/07/2018 11:50:38 PM Arterial Blood pH 7.324 L (Temp corrected) Arterial Blood pCO2 59.0 H (Temp correct) Arterial Blood pO2 85.0 (Temp corrected) Arterial Blood HCO3 30.0 H Arterial Blood Base Excess 2.7 Arterial Blood 95.1 Oxygen Saturation Luis Armando Test ACCEPTAB Arterial Blood Gas Right Radial Puncture Site Arterial 1.0 Blood Carboxyhemoglobin Arterial Blood 0.1 Methemoglobin Blood Gas A-a O2 59.6 H Differential Oxyhemoglobin Percent 94.1 Blood Gas Temperature 37.0 Blood Gas Respiration Rate 16.0 Blood Gas Actual 24 Respiration Rate Blood Gas Modality MASK - BIPAP FiO2 30.0 Blood Gas Pressure Support 10 Blood Gas IPAP/EPAP Ratio 15/5 Blood Gas Notified Whom UP Blood Gas Notified Time 12/07/2018 11:58:33 PM White Blood Count 6.5 6.5 Red Blood Count 3.69 L 3.75 L Hemoglobin 10.9 L 10.9 L Hematocrit 34.8 L 35.6 L Mean Corpuscular Volume 94.3 94.9 Mean Corpuscular Hemoglobin 29.5 29.1 Mean Corpuscular 31.3 L 30.6 L Hemoglobin Concent Red Cell Distribution Width 14.9 H 15.0 H Platelet Count 134 #L 143 Mean Platelet Volume 11.1 H 11.8 H Immature Granulocytes % 0.300 0.200 Neutrophils % 57.4 57.6 Lymphocytes % 22.7 23.5 Monocytes % 6.5 5.8 Eosinophils % 11.7 H 11.1 H Basophils % 1.4 1.8 Nucleated Red Blood Cells % 0.0 0.0 Immature Granulocytes # 0.020 0.010 Neutrophils # 3.7 3.7 Lymphocytes # 1.5 1.5 Monocytes # 0.4 0.4 Eosinophils # 0.8 H 0.7 H Basophils # 0.1 0.1 Nucleated Red Blood Cells # 0.0 0.0 Sodium Level 139 141 Potassium Level 4.4 4.8 Chloride Level 96 L 96 L Carbon Dioxide Level 30 30 Anion Gap 13 15 H Blood Urea Nitrogen 51 H 55 H Creatinine 7.73 H 8.14 H Est Glomerular Filtrat 7 L 7 L Rate mL/min Glucose Level 117 134 Calcium Level 9.8 9.8 Total Bilirubin 0.2 0.4 Direct Bilirubin 0.00 0.00 Indirect Bilirubin 0.2 0.4 Aspartate Amino 17 18 Transf (AST/SGOT) Alanine 22 29 Aminotransferase (ALT/SGPT) Alkaline Phosphatase 57 56 Troponin I 0.066 B-Type Natriuretic Peptide 35973 H Total Protein 7.3 7.4 Albumin 4.2 4.2 Globulin 3.10 3.20 Albumin/Globulin Ratio 1.35 1.31 Hemoglobin A1c 6.7 H Magnesium Level 1.7 Triglycerides Level 113 Cholesterol Level 83 L LDL Cholesterol, Calculated 42 HDL Cholesterol 18 L Cholesterol/HDL Ratio 4.6 Medications Medication Current Medications IV Flush (NS 3 ml) 3 ml PER PROTOCOL IV ; Start 12/08/18 at 03:00 Ondansetron HCl (Zofran Inj) 4 mg Q6H PRN IV NAUSEA/VOMITING; Start 12/08/18 at 03:00 Acetaminophen (Tylenol Tab) 650 mg Q6H PRN PO .PAIN 1-3 OR TEMP; Start 12/08/18 at 03:00 Heparin Sodium (Porcine) (Heparin (5000 Units/1ml)) 5,000 unit Q12 SC Last administered on 12/08/18at 08:43; Admin Dose 5,000 UNIT; Start 12/08/18 at 09:00 Aspirin (Aspirin) 81 mg DAILY PO Last administered on 12/08/18at 08:32; Admin Dose 81 MG; Start 12/08/18 at 09:00 Atorvastatin Calcium (Lipitor) 20 mg QHS PO ; Start 12/08/18 at 21:00 Carvedilol (Coreg) 12.5 mg BID PO Last administered on 12/08/18at 05:07; Admin Dose 12.5 MG; Start 12/08/18 at 03:00 Cholecalciferol (Vitamin D) 1,000 unit DAILY PO Last administered on 12/08/18at 08:32; Admin Dose 1,000 UNIT; Start 12/08/18 at 09:00 Promethazine HCl/ Dextromethorphan (Phenergan-Dm) 5 ml Q6 PRN PO COUGH; Start 12/08/18 at 03:00 Gabapentin (Neurontin) 100 mg QHS PO ; Start 12/08/18 at 21:00 Albuterol/ Ipratropium (Duoneb) 3 ml Q3H RESP THERAPY PRN NEB WHEEZING AND SOB; Start 12/08/18 at 03:00 Losartan Potassium (Cozaar) 25 mg BID PO ; Start 12/08/18 at 09:00 Pantoprazole (Protonix Tab) 40 mg AC BREAKFAST PO Last administered on 12/08/18at 08:32; Admin Dose 40 MG; Start 12/08/18 at 07:00 Senna (Senokot) 1 tab BID PRN PO CONSTIPATION; Start 12/08/18 at 03:00 Heparin Sodium (Porcine) (Heparin (1000 Units/ml)) 4,000 unit AFTER DIALYSIS CATHETER ; Start 12/08/18 at 14:00 Bumetanide (Bumex) 1 mg BID DIURETICS IV ; Start 12/08/18 at 18:00 HANNAH ONOFRE NP Dec 08, 2018 15:26
--- NOTE | 2018-12-08 16:23 | CONS ---
DATE OF ADMISSION: 12/08/2018 DATE OF CONSULTATION: 12/08/2018 REASON FOR ADMISSION: Pulmonary edema. HISTORY OF PRESENT ILLNESS: This is a 53-year-old male with a past a past medical history of cardiac arrest with encephalopathy, CHF, coronary artery disease, started on hemodialysis a year ago, status post CABG, paroxysmal atrial fibrillation, diabetes, obesity, who presented last night secondary to complaining of shortness of breath since last night. According to the patient, he had been going to his dialysis center, he goes to [facility] Saturday, , Saturday. He has been going to [facility]. His last dialysis was on Saturday. According to him, he only removed a few liters and he st arts getting leg cramps. Patient said that he has been noticing edema of the lower extremities and a bdomen and was having shortness of breath and came into the Emergency Department last night. The pat ient was also denied any cough, any fevers and chills. The patient denies any increased salt intake or any water intake. On arrival to ED, vital signs showed blood pressure of 154/97, pulse of 88. La bs showed a potassium of 4.4, BUN of 51, creatinine 7.73, BNP of 301,000. Patient had a chest x-ray that showed pulmonary edema, small bilateral pleural effusions and the patient was admitted for [facility] management. PAST MEDICAL HISTORY: 1. End-stage renal disease on hemodialysis for almost a year Saturday, and Saturday. 2. Hypertension. 3. Hyperlipidemia. 4. Coronary artery disease status post coronary artery bypass. 5. Morbid obesity. 6. Sleep apnea. 7. Anemia. ALLERGIES: LISINOPRIL. PAST SURGICAL HISTORY: The patient had a trach and G-tube before a right Perm-A-Cath placement. The patient also had a fistula in the left arm which never worked. SOCIAL HISTORY: Denies any history of smoking, alcohol or any drug use. MEDICATIONS AT HOME: 1. Albuterol. 2. Atorvastatin 20. 3. Coreg 12.5 b.i.d. 4. Clonidine. 5. Losartan 25 b.i.d. 6. Gabapentin 100 7. Aspirin 81. 8. . 9. Prilosec. 10. Pantoprazole 11. Senna. REVIEW OF SYSTEMS: The patient complained of bilateral lower extremity swelling, shortness of breath last night. Denied any cough. Denies any chest pain. Denies any abdominal pain, nausea, vomiting, diarrhea. Denied any headache, blurry vision, any hematemesis, any melena, any bright red blood per rectum. PHYSICAL EXAMINATION: VITAL SIGNS: Currently, blood pressure 124/74, afebrile, heart rate 67, respirations 20, saturating 99% on 4 liters. GENERAL: Patient is awake, alert, oriented, morbidly obese, does not appear currently on oxygen. Ab le to speak full sentences. HEENT: Pupils equal, round, reactive to light. LUNGS: Few crackles scattered bilaterally. ABDOMEN: Obese, soft, distended. Positive bowel sounds. EXTREMITIES: 2 to 3+ edema, right Perm-A-Cath in place. DIAGNOSTIC DATA: Potassium 4.8, BUN of 55, creatinine 8.14. HbA1c 6.7. BNP 36566. White count of 6.5, hemoglobin 10.9, platelet count 143. ASSESSMENT AND PLAN: This is a 53-year-old male who presented with: 1. Hypercapnic hypoxic respiratory failure, likely secondary to volume overload. 2. End-stage renal disease on hemodialysis. 3. History of congestive heart failure with systolic dysfunction. 4. Coronary artery disease status post coronary artery bypass graft. 5. Obesity. 6. Hypertension. 7. Hyperlipidemia. 8. Diabetes. 9. Complications of diabetes with diabetic neuropathy, nephropathy. 10. History of cardiac arrest, encephalopathy, status post tracheostomy and G-tube which has now bee n reversed. PLAN: At this period of time, the patient is admitted to telemetry. We will continue the patient on hemodialysis. We will also start the patient on some diuretics since the patient does make some uri ne. We will probably try to do another dialysis session tomorrow. Recommend cardiology evaluation a lso and echo. Rest of the treatment will depend on the patient's hospitalization course. Dictated By: ARNULFO ROLON/AUSTEN Conf#: [id number] DID#: [id number] CC: PAYAM LINDER MD;*EndCC*
[2018-12-08] MEDS: BUMETANIDE 1 MG INJ IV SCH (17:31)
--- NOTE | 2018-12-08 20:48 | RADRPT ---
Echocardiogram Report Patient Name: BRIDGET DELATORREPatient ID: [id number] : 1965 (53y 6m)Study Date: 12/08/2018 2:31:05 PM Gender: MAccession #: [id number] Tech: Andres Lara [facility] Location: [id number] Ref.Physician: ARNULFO RICHTER Height(Cm): BSA: Weight(Kg): Quality: Technically Difficult StudyAccount #: Procedures: Echocardiographic Report: Transthoracic echocardiogram with complete 2D, M-Mode, and doppler examination. Indications: Congestive Heart Failure. Measurements: 2D/M Mode Doppler Measurement Value Normal Range Measurement Value Normal Range LVIDd 2D 7.2 [ 4.2 - 5.8 ] cm AV Peak Td 1.3 [ 100.0 - 170.0 ] cm/sec LVIDs 2D 6.5 [ 2.5 - 4.0 ] cm AV Peak PG 7.0 [ 2.0 - 9.0 ] mmHg LVPWd 2D 1.5 [ 0.6 - 1.0 ] cm LVOT Peak Td 0.7 [ 70.0 - 110.0 ] cm/sec IVSd 2D 1.7 [ 0.6 - 1.0 ] cm LVOT Peak PG 2.0 [ 2.0 - 6.0 ] mmHg AoR Diam 2D 3.3 [ 2.6 - 3.4 ] cm MV E Peak Td 1.2 [ 60.0 - 130.0 ] cm/sec EDV 2D 273.0 [ 62.0 - 150.0 ] ml MV Decel Time 137 [ 104 - 258 ] msec ESV 2D 214.0 [ 21.0 - 61.0 ] ml Lat E` Td 0.1 [ 10.0 - 15.0 ] cm/sec EF 2D 21.6 [ 52.0 - 72.0 ] percent Lateral E/E` 18.4 [ 1.0 - 2.0 ] ratio LA Dimen 2D 5.7 [ 3.0 - 4.0 ] cm TR Peak Td 3.3 [ 100.0 - 280.0 ] cm/sec TR Peak PG 45.0 mmHg RVSP 60.0 [ 10.0 - 36.0 ] mmHg RA Pressure 15.0 mmHg Findings: Left Ventricle: Severe concentric left ventricular hypertrophy. Severe enlargement of left ventricle cavity. Severe global left ventricular systolic dysfunction. Ejection fraction is visually estimated at 25-30 %. Tissue Doppler/Mitral Doppler indices are consistent with restrictive physiology with markedly elevated left atrial pressure (Stage III-IV diastolic dysfunction). Right Ventricle: Normal right ventricular systolic function. Not well visualized. Left Atrium: There is severe enlargement of left atrium. Right Atrium: There is severe enlargement of right atrium. Mitral Valve: Normal appearance of the mitral valve. Mild mitral annular calcification. Mild to moderate mitral valve regurgitation. Aortic Valve: No significant aortic stenosis or insufficiency. Aortic cusps appear mildly calcified. Tricuspid Valve: Normal appearance of the tricuspid valve. Estimated peak PA systolic pressure 60 mmHg. There is moderate tricuspid regurgitation. Pulmonic Valve: Pulmonic valve not well visualized. There is trace pulmonic regurgitation. Pericardium: Normal pericardium with no significant pericardial effusion. Aorta: Normal aortic root. IVC: Dilated IVC without respiratory collapse consistent with elevated right atrial pressure. Conclusions: Severe concentric left ventricular hypertrophy. Severe enlargement of left ventricle cavity. Severe global left ventricular systolic dysfunction. Ejection fraction is visually estimated at 25-30 %. Tissue Doppler/Mitral Doppler indices are consistent with restrictive physiology with markedly elevated left atrial pressure (Stage III-IV diastolic dysfunction). There is severe enlargement of left atrium. Normal appearance of the mitral valve. Mild mitral annular calcification. Mild to moderate mitral valve regurgitation. Normal appearance of the tricuspid valve. Estimated peak PA systolic pressure 60 mmHg. There is moderate tricuspid regurgitation. Pulmonic valve not well visualized. There is trace pulmonic regurgitation. Electronically Signed By: Tigre Hernandez 2018-12-08 20:48:15 PDT
[2018-12-09] VITALS (33 sets, daily range): BP systolic 98–145; BP diastolic 56–81; PULSE 62–94; RESP 18–21
[2018-12-09] MEDS: ATORVASTATIN 20 MG TAB PO SCH ×2 (00:02→20:45)
[2018-12-09] MEDS: GABAPENTIN 100 MG CAP PO SCH ×2 (00:02→20:44)
[2018-12-09] MEDS: BUMETANIDE 1 MG INJ IV SCH ×2 (05:58→17:50)
[2018-12-09] MEDS: LOSARTAN 25 MG TAB PO SCH ×2 (08:40→20:45)
[2018-12-09] MEDS: ASPIRIN 81 MG TAB PO SCH (08:40)
[2018-12-09] MEDS: PANTOPRAZOLE (EC) 40 MG TAB PO SCH (08:40)
[2018-12-09] MEDS: CHOLECALCIFEROL 1,000 UNIT TAB PO SCH (08:40)
[2018-12-09] MEDS: HEPARIN 5,000 UNIT/1 ML VIAL SC SCH (08:52)
--- NOTE | 2018-12-09 13:13 | PN ---
Date/Time of Note Date/Time of Note DATE: 12/09/18 TIME: 13:13 Assessment/Plan VTE Prophylaxis Risk score (from Nsg)>0 risk: 3 SCD applied (from Nsg): Yes Pharmacological prophylaxis: heparin Lines/Catheters IV Catheter Type (from Nrsg): Saline Lock Urinary Cath still in place: No (none) Assessment/Plan Hospital Course SUBJECTIVE: Continues to have dyspnea. Denies any chest pain. OBJECTIVE: Physical Exam General: Morbidly obese 53 year-old male lying in bed in no apparent distress. HEENT: Normocephalic, atraumatic. Eyes: Anicteric sclerae, conjunctivae clear. ENT: Nasal septum midline, oral mucosa moist. Neck: Short and obese. Respiratory: Bilaterally diminished breath sounds. Minimal use of accessory muscles of respiration. Bibasilar Rales. Cardiovascular: S1, S2 heard. Irregularly irregular rhythm. Abdomen: Soft, nontender, and nondistended. Bowel sounds positive in all 4 quadrants. Genitourinary: Deferred. Extremities: No cyanosis, no clubbing. Bilateral lower extremity 1+ pitting edema. Neurologic: Cranial nerves II through XII grossly intact. The patient is awake, alert, and oriented. Labs & Vitals per chart ASSESSMENT & PLAN This is a 53-year-old male with past medical history of PEA cardiac arrest, CAD status post CABG, ischemic cardiomyopathy, chronic nonhemorrhagic infarcts within the bilateral occipital lobes, paroxysmal atrial fibrillation, end-stage renal disease on hemodialysis (Tuesdays//Saturdays), diabetes mellitus type 2, systemic hypertension, pulmonary hypertension, anemia, and obesity. The patient came to the emergency room because of dyspnea and increasing edema of bilateral lower extremities. The patient's chest x-ray showed mild cardiomegaly with worsening mild to moderate central pulmonary vascular congestion and interstitial edema with small bilateral pleural effusions. The patient was admitted to inpatient setting for further treatment and evaluation. 1. Acute respiratory failure. -Hypoxic and hypercapnic. -Most probably secondary to missed hemodialysis. -Nephrology has been consulted and the patient is going to get hemodialysis. -Continue supplemental oxygen and NIPPV as indicated. 2. Acute decompensated congestive heart failure. -Continue hemodialysis. 3. Atrial fibrillation. -Rate controlled. -Needs systemic anticoagulation, provided his history of embolic stroke. -Obtain Cardiology consult. 4. ESRD on HD. -Continue hemodialysis. 5. Diabetes mellitus type II. -Hemoglobin A1c 6.7. -Continue sliding scale insulin. 6. Ischemic cardiomyopathy. -EF of 25-30% as per 2D echocardiogram. -Continue beta-blockers and ARB's. 7. CAD, status post coronary artery bypass grafting. -Continue aspirin and statins. 8. Hypertension. -Continue antihypertensives. 9. Pulmonary hypertension. -PA systolic pressure 60 mmHg as per 2D echocardiogram. -Continue supplemental oxygen. 10. Anemia. -Normocytic and normochromic. -Probably anemia of CKD. -Monitor H&H closely. 11. Morbid obesity. -BMI more than 40. 12. Fluids, electrolytes, and nutrition. -Carbohydrate controlled diet. 13. DVT prophylaxis. -Subcutaneous heparin. 14. Plan. -Continue hemodialysis. -Continue supplemental oxygen and NIPPV. -Await cardiology consult. The patient was seen in collaboration with Dr. Strickland. . Result Diagram: 12/08/1852912/08/18 05 Exam/Review of Systems Exam Vitals Vital Signs Date Temp Pulse Resp B/P (MAP) Pulse Ox O2 O2 Flow FiO2 Time Delivery Rate 12/09/18 79 12:21 12/09/18 98.1 19 98/71 (80) 98 12:00 12/09/18 Nasal 2.0 07:33 Cannula 12/09/18 30 04:52 Intake and Output 12/08/18 12/08/18 12/09/18 1515:00 23:00 07:00 IntakeIntake Total 850 ml 120 ml OutputOutput Total 500 ml 3650 ml BalanceBalance 350 ml -3530 ml Medications Medication Current Medications IV Flush (NS 3 ml) 3 ml PER PROTOCOL IV ; Start 12/08/18 at 03:00 Ondansetron HCl (Zofran Inj) 4 mg Q6H PRN IV NAUSEA/VOMITING; Start 12/08/18 at 03:00 Acetaminophen (Tylenol Tab) 650 mg Q6H PRN PO .PAIN 1-3 OR TEMP; Start 12/08/18 at 03:00 Heparin Sodium (Porcine) (Heparin (5000 Units/1ml)) 5,000 unit Q12 SC Last administered on 12/09/18at 08:52; Admin Dose 5,000 UNIT; Start 12/08/18 at 09:00 Aspirin (Aspirin) 81 mg DAILY PO Last administered on 12/09/18 08:40; Admin Dose 81 MG; Start 12/08/18 at 09:00 Atorvastatin Calcium (Lipitor) 20 mg QHS PO Last administered on 12/09/18 00:02; Admin Dose 20 MG; Start 12/08/18 at 21:00 Carvedilol (Coreg) 12.5 mg BID PO Last administered on 12/09/18 08:40; Admin Dose 12.5 MG; Start 12/08/18 at 03:00 Cholecalciferol (Vitamin D) 1,000 unit DAILY PO Last administered on 12/09/18 08:40; Admin Dose 1,000 UNIT; Start 12/08/18 at 09:00 Promethazine HCl/ Dextromethorphan (Phenergan-Dm) 5 ml Q6 PRN PO COUGH; Start 12/08/18 at 03:00 Gabapentin (Neurontin) 100 mg QHS PO Last administered on 12/09/18 00:02; Admin Dose 100 MG; Start 12/08/18 at 21:00 Albuterol/ Ipratropium (Duoneb) 3 ml Q3H RESP THERAPY PRN NEB WHEEZING AND SOB; Start 12/08/18 at 03:00 Losartan Potassium (Cozaar) 25 mg BID PO ; Start 12/08/18 at 09:00 Pantoprazole (Protonix Tab) 40 mg AC BREAKFAST PO Last administered on 12/09/18 08:40; Admin Dose 40 MG; Start 12/08/18 at 07:00 Senna (Senokot) 1 tab BID PRN PO CONSTIPATION; Start 12/08/18 at 03:00 Heparin Sodium (Porcine) (Heparin (1000 Units/ml)) 4,000 unit AFTER DIALYSIS CATHETER Last administered on 12/08/18 23:59; Admin Dose 4,300 UNIT; Start 12/08/18 at 14:00 Bumetanide (Bumex) 1 mg BID DIURETICS IV Last administered on 12/09/18 05:58; Admin Dose 1 MG; Start 12/08/18 at 18:00 HANNAH ONOFRE NP Dec 09, 2018 13:13
[2018-12-09] MEDS ORDERED: HEPARIN 1000 UNITS/ML 10 ML INJ CATHETER SCH (13:30)
--- NOTE | 2018-12-09 13:30 | CONS ---
Assessment/Plan Assessment/Plan Assessment/Plan (Daily) s is a 53-year-old male who presented with: 1. Hypercapnic hypoxic respiratory failure, likely secondary to volume overload. 2. End-stage renal disease on hemodialysis. 3. History of congestive heart failure with systolic dysfunction. with EF 25-30 4. Coronary artery disease status post coronary artery bypass graft. 5. Obesity. 6. Hypertension. 7. Hyperlipidemia. 8. Diabetes. 9. Complications of diabetes with diabetic neuropathy, nephropathy. 10. History of cardiac arrest, encephalopathy, status post tracheostomy and G- tube which has now been reversed. Plan - HD today for volume removal and to be back on schedule - ? AICD placement - Pt will benefit from 4 session of HD/ week spoke to alfie - eugenia bux - renally dose all meds - avoid nephrotoxins Consultation Date/Type/Reason Admit Date/Time Dec 08, 2018 at 01:02 Initial Consult Date Date/Time of Note DATE: 12/09/18 TIME: 13:27 24 HR Interval Summary Free Text/Dictation Status post HD yesterday with removal of 3 L Has lower extremity edema and on oxygen Exam/Review of Systems Exam Vitals Vital Signs Date Temp Pulse Resp B/P (MAP) Pulse Ox O2 O2 Flow FiO2 Time Delivery Rate 12/09/18 79 12:21 12/09/18 98.1 19 98/71 (80) 98 12:00 12/09/18 Nasal 2.0 07:33 Cannula 12/09/18 30 04:52 Intake and Output 12/08/18 12/08/18 12/09/18 1515:00 23:00 07:00 IntakeIntake Total 850 ml 120 ml OutputOutput Total 500 ml 3650 ml BalanceBalance 350 ml -3530 ml Exam GENERAL: Patient is awake, alert, oriented, morbidly obese, does not appear currently on oxygen. Able to speak full sentences. HEENT: Pupils equal, round, reactive to light. LUNGS: Few crackles scattered bilaterally. ABDOMEN: Obese, soft, distended. Positive bowel sounds. EXTREMITIES: 2 to 3+ edema, right Perm-A-Cath in place. Results Result Diagram: 12/08/18 0530 12/08/18 0530 Medications Medication Current Medications IV Flush (NS 3 ml) 3 ml PER PROTOCOL IV ; Start 12/08/18 at 03:00 Ondansetron HCl (Zofran Inj) 4 mg Q6H PRN IV NAUSEA/VOMITING; Start 12/08/18 at 03:00 Acetaminophen (Tylenol Tab) 650 mg Q6H PRN PO .PAIN 1-3 OR TEMP; Start 12/08/18 at 03:00 Heparin Sodium (Porcine) (Heparin (5000 Units/1ml)) 5,000 unit Q12 SC Last administered on 12/09/18 08:52; Admin Dose 5,000 UNIT; Start 12/08/18 at 09:00 Aspirin (Aspirin) 81 mg DAILY PO Last administered on 12/09/18 08:40; Admin Dose 81 MG; Start 12/08/18 at 09:00 Atorvastatin Calcium (Lipitor) 20 mg QHS PO Last administered on 12/09/18 00:02; Admin Dose 20 MG; Start 12/08/18 at 21:00 Carvedilol (Coreg) 12.5 mg BID PO Last administered on 12/09/18 08:40; Admin Dose 12.5 MG; Start 12/08/18 at 03:00 Cholecalciferol (Vitamin D) 1,000 unit DAILY PO Last administered on 12/09/18 08:40; Admin Dose 1,000 UNIT; Start 12/08/18 at 09:00 Promethazine HCl/ Dextromethorphan (Phenergan-Dm) 5 ml Q6 PRN PO COUGH; Start 12/08/18 at 03:00 Gabapentin (Neurontin) 100 mg QHS PO Last administered on 12/09/18 00:02; Admin Dose 100 MG; Start 12/08/18 at 21:00 Albuterol/ Ipratropium (Duoneb) 3 ml Q3H RESP THERAPY PRN NEB WHEEZING AND SOB; Start 12/08/18 at 03:00 Losartan Potassium (Cozaar) 25 mg BID PO ; Start 12/08/18 at 09:00 Pantoprazole (Protonix Tab) 40 mg AC BREAKFAST PO Last administered on 12/09/18 08:40; Admin Dose 40 MG; Start 12/08/18 at 07:00 Senna (Senokot) 1 tab BID PRN PO CONSTIPATION; Start 12/08/18 at 03:00 Heparin Sodium (Porcine) (Heparin (1000 Units/ml)) 4,000 unit AFTER DIALYSIS CATHETER Last administered on 4/15/19at 23:59; Admin Dose 4,300 UNIT; Start 12/08/18 at 14:00 Bumetanide (Bumex) 1 mg BID DIURETICS IV Last administered on 12/09/18at 05:58; Admin Dose 1 MG; Start 12/08/18 at 18:00 Heparin Sodium (Porcine) (Heparin (1000 Units/ml)) 4,000 unit AFTER DIALYSIS CATHETER ; Start 12/09/18 at 13:30; Status UNV ARNULFO RICHTER MD Dec 09, 2018 13:30
--- NOTE | 2018-12-09 15:16 | CONS ---
Assessment/Plan Assessment/Plan Hospital Course (Demo Recall) Acute decompensated systolic congestive heart failure Severe cardia myopathy CAD with history of CABG Atrial fibrillation End-stage renal disease on hemodialysis Hypertension CVA -Patient with evidence of decompensated congestive heart failure. He does admit to poor compliance with medications as well as low-sodium diet -Fluid management via hemodialysis -Continue beta-blockers heart rate and blood pressure permits, ARB as blood pressure permits -Patient was on anticoagulation in the past but did have issues of anemia, that was in the setting of acute illness. Given history of CVA and multiple risk factors for thromboembolism, would restart anticoagulation if hemoglobin remained stable Consultation Date/Type/Reason Admit Date/Time Dec 08, 2018 at 01:02 Type of Consult Cardiology Reason for Consultation Shortness of breath Date/Time of Note DATE: 12/09/18 TIME: 15:09 Hx of Present Illness This is a 53-year-old male with past medical history of CAD status post CABG, end-stage renal disease on hemodialysis, hypertension who presents with progressive worsening shortness of breath over the past 2 weeks. Symptoms are worse with exertion and improved at rest. Does complain of increased lower extremity edema. He denies any chest pain, palpitations or chest pressure. Denies any dizziness. He does feel better after hemodialysis performed as an inpatient. He does tell me he is compliant with dialysis but not compliant with medications all the time and not compliant with a low-sodium diet. Denies any fevers or chills. 12 point review of systems was performed with all pertinent positives and negatives mentioned above and all else is negative Past Medical History Medical History: congestive heart failure, coronary artery disease, hypertension, renal disease Home Meds Active Scripts Carvedilol* (Carvedilol*) 12.5 Mg Tablet, 12.5 MG PO BID, #60 TAB Prov:HANNAH ONOFRE [employer] 10/31/17 Reported Medications Acidophilus-Bulgaricus* (BD Lactinex*) 1 Pkt Packet, 1 PKT GTB DAILY, PACKET 09/19/18 Sennosides* (Senokot*) 8.6 Mg Tablet, 1 TAB PO BID PRN for CONSTIPATION, TAB 09/19/18 Dextromethorphan Hb-Promethazine Hcl* (Promethazine DM* Syrup) 473 Ml Syrup, 5 ML PO Q6 PRN for COUGH, ML 09/19/18 Pantoprazole* (Pantoprazole*) 40 Mg Tablet.dr, 40 MG PO AC BREAKFAST, TAB 09/19/18 Clonidine Hcl* (Clonidine Hcl*) 0.1 Mg Tab, 0.1 MG PO DAILY, TAB HOLD IF SBP<130 09/19/18 Aspirin* (Aspirin* Chew) 81 Mg Tab.chew, 81 MG PO DAILY, TAB.CHEW 09/19/18 Acetaminophen* (Acetaminophen*) 500 MG Extra Strength Tablet, 1000 MG PO Q6H PRN for PAIN AND OR ELEVATED TEMP, TAB 09/19/18 Cholecalciferol* (Vitamin D3*) 1,000 Unit Tablet, 1000 UNIT PO DAILY, TAB 09/19/18 Omeprazole* (Omeprazole*) 20 Mg Capsule.dr, 20 MG PO DAILY, #30 CAP 07/30/18 Gabapentin* (Gabapentin*) 100 Mg Capsule, 100 MG PO QHS, #90 CAP 04/07/18 Atorvastatin Calcium (Atorvastatin Calcium) 20 Mg Tablet, 20 MG PO QHS, #30 TAB 04/07/18 Ipratropium-Albuterol (Ipratropium-Albuterol) 0.5-3 Mg/3 Ml Ampul.neb, 3 ML INHALATION Q6 PRN for WHEEZING AND SOB, #30 VIAL 04/07/18 Losartan Potassium* (Losartan Potassium*) 25 Mg Tablet, 25 MG PO BID, TAB 04/07/18 Medications Current Medications IV Flush (NS 3 ml) 3 ml PER PROTOCOL IV ; Start 12/08/18 at 03:00 Ondansetron HCl (Zofran Inj) 4 mg Q6H PRN IV NAUSEA/VOMITING; Start 12/08/18 at 03:00 Acetaminophen (Tylenol Tab) 650 mg Q6H PRN PO .PAIN 1-3 OR TEMP; Start 12/08/18 at 03:00 Heparin Sodium (Porcine) (Heparin (5000 Units/1ml)) 5,000 unit Q12 SC Last administered on 12/09/18at 08:52; Admin Dose 5,000 UNIT; Start 12/08/18 at 09:00 Aspirin (Aspirin) 81 mg DAILY PO Last administered on 12/09/18at 08:40; Admin Dose 81 MG; Start 12/08/18 at 09:00 Atorvastatin Calcium (Lipitor) 20 mg QHS PO Last administered on 12/09/18at 00:02; Admin Dose 20 MG; Start 12/08/18 at 21:00 Carvedilol (Coreg) 12.5 mg BID PO Last administered on 12/09/18at 08:40; Admin Dose 12.5 MG; Start 12/08/18 at 03:00 Cholecalciferol (Vitamin D) 1,000 unit DAILY PO Last administered on 12/09/18at 08:40; Admin Dose 1,000 UNIT; Start 12/08/18 at 09:00 Promethazine HCl/ Dextromethorphan (Phenergan-Dm) 5 ml Q6 PRN PO COUGH; Start 12/08/18 at 03:00 Gabapentin (Neurontin) 100 mg QHS PO Last administered on 12/09/18at 00:02; Admin Dose 100 MG; Start 12/08/18 at 21:00 Albuterol/ Ipratropium (Duoneb) 3 ml Q3H RESP THERAPY PRN NEB WHEEZING AND SOB; Start 12/08/18 at 03:00 Losartan Potassium (Cozaar) 25 mg BID PO ; Start 12/08/18 at 09:00 Pantoprazole (Protonix Tab) 40 mg AC BREAKFAST PO Last administered on 12/09/18at 08:40; Admin Dose 40 MG; Start 12/08/18 at 07:00 Senna (Senokot) 1 tab BID PRN PO CONSTIPATION; Start 12/08/18 at 03:00 Heparin Sodium (Porcine) (Heparin (1000 Units/ml)) 4,000 unit AFTER DIALYSIS CATHETER Last administered on 12/08/18at 23:59; Admin Dose 4,300 UNIT; Start 12/08/18 at 14:00 Bumetanide (Bumex) 1 mg BID DIURETICS IV Last administered on 12/09/18at 05:58; Admin Dose 1 MG; Start 12/08/18 at 18:00 Heparin Sodium (Porcine) (Heparin (1000 Units/ml)) 4,000 unit AFTER DIALYSIS CATHETER ; Start 12/09/18 at 13:30 Mupirocin (Bactroban) 1 applic BID TOP ; Start 12/09/18 at 21:00 Allergies: Coded Allergies: lisinopril (Verified Allergy, Intermediate, 09/19/18) Patient cannot tolerate the lisinopril. patient coughs. Past Surgical History Past Surgical Hx: coronary bypass surgery Family History Significant Family History: heart disease, vascular disease Social History Smoking Status: Current every day smoker Exam/Review of Systems Vital Signs Vitals Vital Signs Date Temp Pulse Resp B/P (MAP) Pulse Ox O2 O2 Flow FiO2 Time Delivery Rate 12/09/18 79 12:21 12/09/18 98.1 19 98/71 (80) 98 12:00 12/09/18 Nasal 2.0 07:33 Cannula 12/09/18 30 04:52 Intake and Output 12/08/18 12/08/18 12/09/18 1515:00 23:00 07:00 IntakeIntake Total 850 ml 120 ml OutputOutput Total 500 ml 3650 ml BalanceBalance 350 ml -3530 ml Exam Constitutional: alert, oriented (Obese, no apparent distress) Head: normocephalic Respiratory: other (Coarse breath sounds bilaterally, crackles at the bases, no wheezing) Cardiovascular: irregular rhythm (S1-S2 heard) Gastrointestinal: soft, non-tender, bowel sounds Extremities: edema Labs Result Diagram: 12/08/1852912/08/18529 Imaging Imaging ECG atrial fibrillation at 93 bpm, QRS 120 ms, nonspecific ST abnormalities Medications Medications Current Medications IV Flush (NS 3 ml) 3 ml PER PROTOCOL IV ; Start 12/08/18 at 03:00 Ondansetron HCl (Zofran Inj) 4 mg Q6H PRN IV NAUSEA/VOMITING; Start 12/08/18 at 03:00 Acetaminophen (Tylenol Tab) 650 mg Q6H PRN PO .PAIN 1-3 OR TEMP; Start 12/08/18 at 03:00 Heparin Sodium (Porcine) (Heparin (5000 Units/1ml)) 5,000 unit Q12 SC Last administered on 12/09/18at 08:52; Admin Dose 5,000 UNIT; Start 12/08/18 at 09:00 Aspirin (Aspirin) 81 mg DAILY PO Last administered on 12/09/18at 08:40; Admin Dose 81 MG; Start 12/08/18 at 09:00 Atorvastatin Calcium (Lipitor) 20 mg QHS PO Last administered on 12/09/18at 00:02; Admin Dose 20 MG; Start 12/08/18 at 21:00 Carvedilol (Coreg) 12.5 mg BID PO Last administered on 12/09/18at 08:40; Admin Dose 12.5 MG; Start 12/08/18 at 03:00 Cholecalciferol (Vitamin D) 1,000 unit DAILY PO Last administered on 12/09/18at 08:40; Admin Dose 1,000 UNIT; Start 12/08/18 at 09:00 Promethazine HCl/ Dextromethorphan (Phenergan-Dm) 5 ml Q6 PRN PO COUGH; Start 12/08/18 at 03:00 Gabapentin (Neurontin) 100 mg QHS PO Last administered on 12/09/18at 00:02; Ad min Dose 100 MG; Start 12/08/18 at 21:00 Albuterol/ Ipratropium (Duoneb) 3 ml Q3H RESP THERAPY PRN NEB WHEEZING AND SOB; Start 12/08/18 at 03:00 Losartan Potassium (Cozaar) 25 mg BID PO ; Start 12/08/18 at 09:00 Pantoprazole (Protonix Tab) 40 mg AC BREAKFAST PO Last administered on 12/09/18at 08:40; Admin Dose 40 MG; Start 12/08/18 at 07:00 Senna (Senokot) 1 tab BID PRN PO CONSTIPATION; Start 12/08/18 at 03:00 Heparin Sodium (Porcine) (Heparin (1000 Units/ml)) 4,000 unit AFTER DIALYSIS CATHETER Last administered on 12/08/18at 23:59; Admin Dose 4,300 UNIT; Start 12/08/18 at 14:00 Bumetanide (Bumex) 1 mg BID DIURETICS IV Last administered on 12/09/18at 05:58; Admin Dose 1 MG; Start 12/08/18 at 18:00 Heparin Sodium (Porcine) (Heparin (1000 Units/ml)) 4,000 unit AFTER DIALYSIS CATHETER ; Start 12/09/18 at 13:30 Mupirocin (Bactroban) 1 applic BID TOP ; Start 12/09/18 at 21:00 Ronald Grullon DO Dec 09, 2018 15:16
[2018-12-09] MEDS: MUPIROCIN 2% 22 GM OINT TOP SCH (20:44)
[2018-12-09] MEDS: APIXABAN 5 MG TABLET PO SCH (20:45)
[2018-12-10] VITALS (17 sets, daily range): BP systolic 108–133; BP diastolic 55–78; PULSE 69–88; RESP 18–20
[2018-12-10] MEDS: BUMETANIDE 1 MG INJ IV SCH ×2 (05:30→18:22)
[2018-12-10] MEDS: APIXABAN 5 MG TABLET PO SCH ×2 (08:17→21:32)
[2018-12-10] MEDS: CHOLECALCIFEROL 1,000 UNIT TAB PO SCH (08:17)
[2018-12-10] MEDS: PANTOPRAZOLE (EC) 40 MG TAB PO SCH (08:17)
[2018-12-10] MEDS: LOSARTAN 25 MG TAB PO SCH ×2 (08:18→22:06)
[2018-12-10] MEDS: MUPIROCIN 2% 22 GM OINT TOP SCH ×2 (08:20→21:39)
--- NOTE | 2018-12-10 11:58 | PN ---
Date/Time of Note Date/Time of Note DATE: 12/10/18 TIME: 11:55 Assessment/Plan VTE Prophylaxis Risk score (from Ns)>0 risk: 6 SCD applied (from Ns): No SCD contraindicated: other Pharmacological prophylaxis: apixaban Lines/Catheters IV [facility]from [facility] [place] Urinary Cath still in place: No (none) Assessment/Plan Hospital Course SUBJECTIVE: Continues to have dyspnea. Denies any chest pain. OBJECTIVE: Physical Exam General: Morbidly obese 53 year-old male lying in bed in no apparent distress. HEENT: Normocephalic, atraumatic. Eyes: Anicteric sclerae, conjunctivae clear. ENT: Nasal septum midline, oral mucosa moist. Neck: Short and obese. Respiratory: Bilaterally diminished breath sounds. Minimal use of accessory muscles of respiration. Bibasilar Rales. Cardiovascular: S1, S2 heard. Irregularly irregular rhythm. Abdomen: Soft, nontender, and nondistended. Bowel sounds positive in all 4 quadrants. Genitourinary: Deferred. Extremities: No cyanosis, no clubbing. Bilateral lower extremity 1+ pitting edema. Neurologic: Cranial nerves II through XII grossly intact. The patient is awake, alert, and oriented. Labs & Vitals per chart ASSESSMENT & PLAN This is a 53-year-old male with past medical history of PEA cardiac arrest, CAD status post CABG, ischemic cardiomyopathy, chronic nonhemorrhagic infarcts within the bilateral occipital lobes, paroxysmal atrial fibrillation, end-stage renal disease on hemodialysis (Tuesdays//Saturdays), diabetes mellitus type 2, systemic hypertension, pulmonary hypertension, anemia, and obesity. The patient came to the emergency room because of dyspnea and increasing edema of bilateral lower extremities. The patient's chest x-ray showed mild cardiomegaly with worsening mild to moderate central pulmonary vascular congestion and inter stitial edema with small bilateral pleural effusions. The patient was admitted to inpatient setting for further treatment and evaluation. 1. Acute respiratory failure. -Hypoxic and hypercapnic. -Most probably secondary to missed hemodialysis. -Nephrology has been consulted and the patient is going to get hemodialysis. -Continue supplemental oxygen and NIPPV as indicated. 2. Acute decompensated congestive heart failure. -Continue hemodialysis. 3. Atrial fibrillation. -Rate controlled. -Needs systemic anticoagulation, provided his history of embolic stroke. -Started on factor Xa inhibitors. 4. ESRD on HD. -Continue hemodialysis. 5. Diabetes mellitus type II. -Hemoglobin A1c 6.7. -Continue sliding scale insulin. 6. Ischemic cardiomyopathy. -EF of 25-30% as per 2D echocardiogram. -Continue beta-blockers and ARB's. 7. CAD, status post coronary artery bypass grafting. -Continue aspirin and statins. 8. Hypertension. -Continue antihypertensives. 9. Pulmonary hypertension. -PA systolic pressure 60 mmHg as per 2D echocardiogram. -Continue supplemental oxygen. 10. Anemia. -Normocytic and normochromic. -Probably anemia of CKD. -Monitor H&H closely. 11. Morbid obesity. -BMI more than 40. 12. Fluids, electrolytes, and nutrition. -Carbohydrate controlled diet. 13. DVT prophylaxis. -Factor Xa inhibitors. 14. Plan. -Continue hemodialysis. -Continue supplemental oxygen and NIPPV as indicated. -Await clinical improvement before discharging the patient. The patient was seen in collaboration with Dr. Strickland. . Result Diagram: 12/10/18 0938 12/10/18 0938 Results 24hrs Laboratory Tests Test 12/09/18 14:16 12/10/18 09:38 White Blood Count 5.0 # 5.9 Red Blood Count 3.60 L 3.48 L Hemoglobin 10.6 L 10.1 L Hematocrit 35.2 L 33.8 L Mean Corpuscular Volume 97.8 97.1 Mean Corpuscular Hemoglobin 29.4 29.0 Mean Corpuscular Hemoglobin Concent 30.1 L 29.9 L Red Cell Distribution Width 14.8 H 15.0 H Platelet Count 119 L 116 L Mean Platelet Volume 11.9 H 11.1 H Immature Granulocytes % 0.200 0.300 Neutrophils % 59.4 62.3 Lymphocytes % 18.3 17.4 Monocytes % 6.2 4.9 Eosinophils % 14.3 H 14.1 H Basophils % 1.6 1.0 Nucleated Red Blood Cells % 0.0 0.0 Immature Granulocytes # 0.010 0.020 Neutrophils # 3.0 3.7 Lymphocytes # 0.9 1.0 Monocytes # 0.3 0.3 Eosinophils # 0.7 H 0.8 H Basophils # 0.1 0.1 Nucleated Red Blood Cells # 0.0 0.0 Sodium Level 141 140 Potassium Level 4.9 4.6 Chloride Level 104 99 Carbon Dioxide Level 27 26 Anion Gap 10 # 15 H Blood Urea Nitrogen 44 #H 38 H Creatinine 7.42 H 7.04 H Est Glomerular Filtrat Rate mL/min 8 L 8 L Glucose Level 148 255 #H Calcium Level 8.9 8.9 Phosphorus Level 6.1 H 4.7 Magnesium Level 1.9 1.7 Exam/Review of Systems Exam Vitals Vital Signs Date Temp Pulse Resp B/P (MAP) Pulse Ox O2 O2 Flow FiO2 Time Delivery Rate 12/10/18 97.7 78 19 118/62 96 11:09 (80) 12/10/18 Nasal 2.0 08:21 Cannula 12/10/18 30 04:49 Intake and Output 12/09/18 12/09/18 12/10/18 1515:00 23:00 07:00 IntakeIntake Total 1000 ml 500 ml OutputOutput Total 2600 ml 150 ml BalanceBalance -1600 ml 350 ml Results Results 24hrs Laboratory Tests Test 12/09/18 14:16 12/10/18 09:38 White Blood Count 5.0 # 5.9 Red Blood Count 3.60 L 3.48 L Hemoglobin 10.6 L 10.1 L Hematocrit 35.2 L 33.8 L Mean Corpuscular Volume 97.8 97.1 Mean Corpuscular Hemoglobin 29.4 29.0 Mean Corpuscular Hemoglobin Concent 30.1 L 29.9 L Red Cell Distribution Width 14.8 H 15.0 H Platelet Count 119 L 116 L Mean Platelet Volume 11.9 H 11.1 H Immature Granulocytes % 0.200 0.300 Neutrophils % 59.4 62.3 Lymphocytes % 18.3 17.4 Monocytes % 6.2 4.9 Eosinophils % 14.3 H 14.1 H Basophils % 1.6 1.0 Nucleated Red Blood Cells % 0.0 0.0 Immature Granulocytes # 0.010 0.020 Neutrophils # 3.0 3.7 Lymphocytes # 0.9 1.0 Monocytes # 0.3 0.3 Eosinophils # 0.7 H 0.8 H Basophils # 0.1 0.1 Nucleated Red Blood Cells # 0.0 0.0 Sodium Level 141 140 Potassium Level 4.9 4.6 Chloride Level 104 99 Carbon Dioxide Level 27 26 Anion Gap 10 # 15 H Blood Urea Nitrogen 44 #H 38 H Creatinine 7.42 H 7.04 H Est Glomerular Filtrat Rate mL/min 8 L 8 L Glucose Level 148 255 #H Calcium Level 8.9 8.9 Phosphorus Level 6.1 H 4.7 Magnesium Level 1.9 1.7 Medications Medication Current Medications IV Flush (NS 3 ml) 3 ml PER PROTOCOL IV ; Start 12/08/18 at 03:00 Ondansetron HCl (Zofran Inj) 4 mg Q6H PRN IV NAUSEA/VOMITING; Start 12/08/18 at 03:00 Acetaminophen (Tylenol Tab) 650 mg Q6H PRN PO .PAIN 1-3 OR TEMP; Start 12/08/18 at 03:00 Atorvastatin Calcium (Lipitor) 20 mg QHS PO Last administered on 12/09/18 20:45; Admin Dose 20 MG; Start 12/08/18 at 21:00 Carvedilol (Coreg) 12.5 mg BID PO Last administered on 12/10/18 08:18; Admin Dose 12.5 MG; Start 12/08/18 at 03:00 Cholecalciferol (Vitamin D) 1,000 unit DAILY PO Last administered on 12/10/18 08:17; Admin Dose 1,000 UNIT; Start 12/08/18 at 09:00 Promethazine HCl/ Dextromethorphan (Phenergan-Dm) 5 ml Q6 PRN PO COUGH; Start 12/08/18 at 03:00 Gabapentin (Neurontin) 100 mg QHS PO Last administered on 12/09/18 20:44; Admin Dose 100 MG; Start 12/08/18 at 21:00 Albuterol/ Ipratropium (Duoneb) 3 ml Q3H RESP THERAPY PRN NEB WHEEZING AND SOB; Start 12/08/18 at 03:00 Losartan Potassium (Cozaar) 25 mg BID PO Last administered on 12/09/18 20:45; Admin Dose 25 MG; Start 12/08/18 at 09:00 Pantoprazole (Protonix Tab) 40 mg AC BREAKFAST PO Last administered on 12/10/18 08:17; Admin Dose 40 MG; Start 12/08/18 at 07:00 Senna (Senokot) 1 tab BID PRN PO CONSTIPATION; Start 12/08/18 at 03:00 Bumetanide (Bumex) 1 mg BID DIURETICS IV Last administered on 12/10/18at 05:30; Admin Dose 1 MG; Start 12/08/18 at 18:00 Heparin Sodium (Porcine) (Heparin (1000 Units/ml)) 4,000 unit AFTER DIALYSIS CATHETER ; Start 12/09/18 at 13:30 Mupirocin (Bactroban) 1 applic BID TOP Last administered on 12/10/18at 08:20; Admin Dose 1 APPLIC; Start 12/09/18 at 21:00 Apixaban (Eliquis) 5 mg BID PO Last administered on 12/10/18at 08:17; Admin Dose 5 MG; Start 12/09/18 at 21:00 HANNAH ONOFRE NP Dec 10, 2018 11:57
--- NOTE | 2018-12-10 12:30 | CONS ---
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 He does admit to poor compliance with medications as well as low-sodium diet -Symptoms have been improving after hemodialysis -Fluid management via hemodialysis -Continue beta-blockers heart rate and blood pressure permits, ARB as blood pressure permits -Patient was on anticoagulation in the past but did have issues of anemia, that was in the setting of acute illness. Given history of CVA and multiple risk factors for thromboembolism, anticoagulation was restarted on this admission. Would watch hemoglobin and for any signs of bleeding Consultation Date/Type/Reason Admit Date/Time Dec 08, 2018 at 01:02 Initial Consult Date Type of Consult Cardiology Date/Time of Note DATE: 12/10/18 TIME: 12:28 24 HR Interval Summary Free Text/Dictation Shortness of breath continues to improve as well as lower extremity edema. Denies dizziness or chest pain Exam/Review of Systems Vital Signs Vitals Vital Signs Date Temp Pulse Resp B/P (MAP) Pulse Ox O2 O2 Flow FiO2 Time Delivery Rate 12/10/18 97.7 78 19 118/62 96 11:09 (80) 12/10/18 Nasal 2.0 08:21 Cannula 12/10/18 30 04:49 Intake and Output 12/09/18 12/09/18 12/10/18 1515:00 23:00 07:00 IntakeIntake Total 1000 ml 500 ml OutputOutput Total 2600 ml 150 ml BalanceBalance -1600 ml 350 ml Exam Constitutional: alert, oriented (No apparent distress, no dyspnea with sp eaking) Head: normocephalic Respiratory: other (Coarse breath sounds bilaterally, no wheezing) Cardiovascular: regular rate and rhythm (S1-S2 heard) Gastrointestinal: soft, non-tender, bowel sounds Extremities: edema Labs Result Diagram: 12/10/18 0938 12/10/1838 Results 24hrs Laboratory Tests Test 12/09/18 14:16 12/10/18 09:38 White Blood Count 5.0 # 5.9 Red Blood Count 3.60 L 3.48 L Hemoglobin 10.6 L 10.1 L Hematocrit 35.2 L 33.8 L Mean Corpuscular Volume 97.8 97.1 Mean Corpuscular Hemoglobin 29.4 29.0 Mean Corpuscular Hemoglobin Concent 30.1 L 29.9 L Red Cell Distribution Width 14.8 H 15.0 H Platelet Count 119 L 116 L Mean Platelet Volume 11.9 H 11.1 H Immature Granulocytes % 0.200 0.300 Neutrophils % 59.4 62.3 Lymphocytes % 18.3 17.4 Monocytes % 6.2 4.9 Eosinophils % 14.3 H 14.1 H Basophils % 1.6 1.0 Nucleated Red Blood Cells % 0.0 0.0 Immature Granulocytes # 0.010 0.020 Neutrophils # 3.0 3.7 Lymphocytes # 0.9 1.0 Monocytes # 0.3 0.3 Eosinophils # 0.7 H 0.8 H Basophils # 0.1 0.1 Nucleated Red Blood Cells # 0.0 0.0 Sodium Level 141 140 Potassium Level 4.9 4.6 Chloride Level 104 99 Carbon Dioxide Level 27 26 Anion Gap 10 # 15 H Blood Urea Nitrogen 44 #H 38 H Creatinine 7.42 H 7.04 H Est Glomerular Filtrat Rate mL/min 8 L 8 L Glucose Level 148 255 #H Calcium Level 8.9 8.9 Phosphorus Level 6.1 H 4.7 Magnesium Level 1.9 1.7 Medications Medications Current Medications IV Flush (NS 3 ml) 3 ml PER PROTOCOL IV ; Start 12/08/18 at 03:00 Ondansetron HCl (Zofran Inj) 4 mg Q6H PRN IV NAUSEA/VOMITING; Start 12/08/18 at 03:00 Acetaminophen (Tylenol Tab) 650 mg Q6H PRN PO .PAIN 1-3 OR TEMP; Start 12/08/18 at 03:00 Atorvastatin Calcium (Lipitor) 20 mg QHS PO Last administered on 12/09/18at 20:45; Admin Dose 20 MG; Start 12/08/18 at 21:00 Carvedilol (Coreg) 12.5 mg BID PO Last administered on 12/10/18at 08:18; Admin Dose 12.5 MG; Start 12/08/18 at 03:00 Cholecalciferol (Vitamin D) 1,000 unit DAILY PO Last administered on 12/10/18at 08:17; Admin Dose 1,000 UNIT; Start 12/08/18 at 09:00 Promethazine HCl/ Dextromethorphan (Phenergan-Dm) 5 ml Q6 PRN PO COUGH; Start 12/08/18 at 03:00 Gabapentin (Neurontin) 100 mg QHS PO Last administered on 12/09/18at 20:44; Ad min Dose 100 MG; Start 12/08/18 at 21:00 Albuterol/ Ipratropium (Duoneb) 3 ml Q3H RESP THERAPY PRN NEB WHEEZING AND SOB; Start 12/08/18 at 03:00 Losartan Potassium (Cozaar) 25 mg BID PO Last administered on 12/09/18at 20:45; Admin Dose 25 MG; Start 12/08/18 at 09:00 Pantoprazole (Protonix Tab) 40 mg AC BREAKFAST PO Last administered on 12/10/18 08:17; Admin Dose 40 MG; Start 12/08/18 at 07:00 Senna (Senokot) 1 tab BID PRN PO CONSTIPATION; Start 12/08/18 at 03:00 Bumetanide (Bumex) 1 mg BID DIURETICS IV Last administered on 12/10/18 05:30; Admin Dose 1 MG; Start 12/08/18 at 18:00 Heparin Sodium (Porcine) (Heparin (1000 Units/ml)) 4,000 unit AFTER DIALYSIS CATHETER ; Start 12/09/18 at 13:30 Mupirocin (Bactroban) 1 applic BID TOP Last administered on 12/10/18at 08:20; Admin Dose 1 APPLIC; Start 12/09/18 at 21:00 Apixaban (Eliquis) 5 mg BID PO Last administered on 12/10/18at 08:17; Admin Dose 5 MG; Start 12/09/18 at 21:00 Ronald Grullon DO Dec 10, 2018 12:30
--- NOTE | 2018-12-10 15:23 | CONS ---
Assessment/Plan Assessment/Plan Assessment/Plan (Daily) 53-year-old male who presented with: 1. Hypercapnic hypoxic respiratory failure, likely secondary to volume overload. 2. End-stage renal disease on hemodialysis. 3. History of congestive heart failure with systolic dysfunction. with EF 25-30 4. Coronary artery disease status post coronary artery bypass graft. 5. Obesity. 6. Hypertension. 7. Hyperlipidemia. 8. Diabetes. 9. Complications of diabetes with diabetic neuropathy, nephropathy. 10. History of cardiac arrest, encephalopathy, status post tracheostomy and G- tube which has now been reversed. Plan - HD tmw for volume removal next tmw, sp 2 sessions in row - ? AICD placement - Pt will benefit from 4 session of HD/ week spoke to alfie - Strict salt and water restriction - cw bumex - renally dose all meds - avoid nephrotoxins Consultation Date/Type/Reason Admit Date/Time Dec 08, 2018 at 01:02 Initial Consult Date Date/Time of Note DATE: 12/10/18 TIME: 15:22 24 HR Interval Summary Free Text/Dictation feels better today Exam/Review of Systems Exam Vitals Vital Signs Date Temp Pulse Resp B/P (MAP) Pulse Ox O2 O2 Flow FiO2 Time Delivery Rate 12/10/18 Nasal 2.0 14:00 Cannula 12/10/18 71 13:28 12/10/18 98 30 13:14 12/10/18 97.7 19 118/62 11:09 (80) Intake and Output 12/09/18 12/09/18 12/10/18 1515:00 23:00 07:00 IntakeIntake Total 1000 ml 500 ml OutputOutput Total 2600 ml 150 ml BalanceBalance -1600 ml 350 ml Exam Exam GENERAL: Patient is awake, alert, oriented, morbidly obese, does not appear currently on oxygen. Able to speak full sentences. HEENT: Pupils equal, round, reactive to light. LUNGS: Few crackles scattered bilaterally. ABDOMEN: Obese, soft, distended. Positive bowel sounds. EXTREMITIES: 2 to 3+ edema, right Perm-A-Cath in place. Results Result Diagram: 12/10/18 0938 12/10/18 0938 Results 24hrs Laboratory Tests Test 12/10/18 09:38 White Blood Count 5.9 Red Blood Count 3.48 L Hemoglobin 10.1 L Hematocrit 33.8 L Mean Corpuscular Volume 97.1 Mean Corpuscular Hemoglobin 29.0 Mean Corpuscular Hemoglobin Concent 29.9 L Red Cell Distribution Width 15.0 H Platelet Count 116 L Mean Platelet Volume 11.1 H Immature Granulocytes % 0.300 Neutrophils % 62.3 Lymphocytes % 17.4 Monocytes % 4.9 Eosinophils % 14.1 H Basophils % 1.0 Nucleated Red Blood Cells % 0.0 Immature Granulocytes # 0.020 Neutrophils # 3.7 Lymphocytes # 1.0 Monocytes # 0.3 Eosinophils # 0.8 H Basophils # 0.1 Nucleated Red Blood Cells # 0.0 Sodium Level 140 Potassium Level 4.6 Chloride Level 99 Carbon Dioxide Level 26 Anion Gap 15 H Blood Urea Nitrogen 38 H Creatinine 7.04 H Est Glomerular Filtrat Rate mL/min 8 L Glucose Level 255 #H Calcium Level 8.9 Phosphorus Level 4.7 Magnesium Level 1.7 Medications Medication Current Medications IV Flush (NS 3 ml) 3 ml PER PROTOCOL IV ; Start 12/08/18 at 03:00 Ondansetron HCl (Zofran Inj) 4 mg Q6H PRN IV NAUSEA/VOMITING; Start 12/08/18 at 03:00 Acetaminophen (Tylenol Tab) 650 mg Q6H PRN PO .PAIN 1-3 OR TEMP; Start 12/08/18 at 03:00 Atorvastatin Calcium (Lipitor) 20 mg QHS PO Last administered on 12/09/18at 20:45; Admin Dose 20 MG; Start 12/08/18 at 21:00 Carvedilol (Coreg) 12.5 mg BID PO Last administered on 12/10/18at 08:18; Admin Dose 12.5 MG; Start 12/08/18 at 03:00 Cholecalciferol (Vitamin D) 1,000 unit DAILY PO Last administered on 12/10/18at 08:17; Admin Dose 1,000 UNIT; Start 12/08/18 at 09:00 Promethazine HCl/ Dextromethorphan (Phenergan-Dm) 5 ml Q6 PRN PO COUGH; Start 12/08/18 at 03:00 Gabapentin (Neurontin) 100 mg QHS PO Last administered on 12/09/18at 20:44; Admin Dose 100 MG; Start 12/08/18 at 21:00 Albuterol/ Ipratropium (Duoneb) 3 ml Q3H RESP THERAPY PRN NEB WHEEZING AND SOB; Start 12/08/18 at 03:00 Losartan Potassium (Cozaar) 25 mg BID PO Last administered on 12/09/18at 20:45; Admin Dose 25 MG; Start 12/08/18 at 09:00 Pantoprazole (Protonix Tab) 40 mg AC BREAKFAST PO Last administered on 12/10/18at 08:17; Admin Dose 40 MG; Start 12/08/18 at 07:00 Senna (Senokot) 1 tab BID PRN PO CONSTIPATION; Start 12/08/18 at 03:00 Bumetanide (Bumex) 1 mg BID DIURETICS IV Last administered on 12/10/18at 05:30; Admin Dose 1 MG; Start 12/08/18 at 18:00 Heparin Sodium (Porcine) (Heparin (1000 Units/ml)) 4,000 unit AFTER DIALYSIS CATHETER ; Start 12/09/18 at 13:30 Mupirocin (Bactroban) 1 applic BID TOP Last administered on 12/10/18at 08:20; A dmin Dose 1 APPLIC; Start 12/09/18 at 21:00 Apixaban (Eliquis) 5 mg BID PO Last administered on 12/10/18at 08:17; Admin Dose 5 MG; Start 12/09/18 at 21:00 ARNULFO RICHTER MD Dec 10, 2018 15:23
[2018-12-10] MEDS ORDERED: GLUCAGON 1 MG INJ IM PRN (20:30)
[2018-12-10] MEDS ORDERED: DEXTROSE 50% 50 ML SYRINGE IV PRN ×2 (20:30)
[2018-12-10] MEDS ORDERED: GLUCOSE GEL 15 GRAM TUBE PO PRN ×2 (20:30)
[2018-12-10] MEDS ORDERED: GLUCOSE GEL 15 GRAM TUBE BUCCAL PRN (20:30)
[2018-12-10] MEDS: INSULIN ASPART [NOVOLOG] 3 ML PEN SC SCH (21:00)
[2018-12-10] MEDS: GABAPENTIN 100 MG CAP PO SCH (21:32)
[2018-12-10] MEDS: ATORVASTATIN 20 MG TAB PO SCH (21:32)
[2018-12-10] MEDS: INSULIN GLARGINE [LANTus] (100 UNITS/ML) SYG SC SCH (22:22)
[2018-12-11] VITALS (26 sets, daily range): BP systolic 88–140; BP diastolic 50–101; PULSE 62–82; RESP 18–20
[2018-12-11] MEDS ORDERED: MAGNESIUM SULFATE 2 GM/50 ML 50 ML IVPB ONE (01:00)
[2018-12-11] MEDS ORDERED: ACCU-CHEK XX SCH (02:00)
[2018-12-11] MEDS: BUMETANIDE 1 MG INJ IV SCH ×2 (06:18→17:38)
[2018-12-11] MEDS: LOSARTAN 25 MG TAB PO SCH ×2 (07:43→21:00)
[2018-12-11] MEDS: CHOLECALCIFEROL 1,000 UNIT TAB PO SCH (07:43)
[2018-12-11] MEDS: PANTOPRAZOLE (EC) 40 MG TAB PO SCH (07:43)
[2018-12-11] MEDS: APIXABAN 5 MG TABLET PO SCH ×2 (07:44→21:33)
[2018-12-11] MEDS: MUPIROCIN 2% 22 GM OINT TOP SCH ×2 (07:44→21:00)
[2018-12-11] MEDS: INSULIN ASPART [NOVOLOG] 3 ML PEN SC SCH ×4 (07:45→21:00)
[2018-12-11] MEDS ORDERED: Insulin Glargine SC (10:47)
[2018-12-11] MEDS ORDERED: NOVO3I SC (10:47)
[2018-12-11] MEDS ORDERED: MUPI22OI2 TOP (10:47)
[2018-12-11] MEDS ORDERED: APIX5TAB PO (10:47)
--- NOTE | 2018-12-11 10:49 | PDOCDIS ---
Discharge Instructions CONDITION [id number] Patient Condition: [id number] Fair HOME CARE INSTRUCTIONS: [id number] Special Diet: [id number] Low sodium, low potassium, low carbohydrate, low-cholesterol FOLLOW UP/APPOINTMENTS Follow-up Plan 1. Medications as per medication list. 2. Take a low carbohydrate,, low-sodium, low potassium diet. 3. Resume activities as tolerated. 4. Follow-up with your hemodialysis clinic as scheduled. HANNAH ONOFRE NP Dec 11, 2018 10:49
--- NOTE | 2018-12-11 11:46 | PN ---
Assessment/Plan VTE Prophylaxis Risk score (from Nsg)>0 risk: 8 Assessment/Plan Result Diagram: 12/10/18 0938 12/10/18 0938 Results 24hrs Laboratory Tests Test 12/10/18 21:35 12/11/18 01:30 12/11/18 07:44 Bedside Glucose 164 138 122 Exam/Review of Systems Exam Vitals Results Results 24hrs Medications Medication HANNAH ONOFRE NP Dec 11, 2018 11:46
--- NOTE | 2018-12-11 14:40 | CONS ---
Assessment/Plan Assessment/Plan Assessment/Plan (Daily) 53-year-old male who presented with: 1. Hypercapnic hypoxic respiratory failure, likely secondary to volume overload. 2. End-stage renal disease on hemodialysis. 3. History of congestive heart failure with systolic dysfunction. with EF 25-30 4. Coronary artery disease status post coronary artery bypass graft. 5. Obesity. 6. Hypertension. 7. Hyperlipidemia. 8. Diabetes. 9. Complications of diabetes with diabetic neuropathy, nephropathy. 10. History of cardiac arrest, encephalopathy, status post tracheostomy and G- tube which has now been reversed. Plan - HD TODAY for volume removal sp 2 sessions in row - ? AICD placement - Pt will benefit from 4 session of HD/ week spoke to andi and Dr Hodge - Strict salt and water restriction - cw bumex - renally dose all meds - avoid nephrotoxins Consultation Date/Type/Reason Admit Date/Time Dec 08, 2018 at 01:02 Initial Consult Date Date/Time of Note DATE: 12/11/18 TIME: 14:39 24 HR Interval Summary Free Text/Dictation Overall patient feels better today Exam/Review of Systems Exam Vitals Vital Signs Date Temp Pulse Resp B/P (MAP) Pulse Ox O2 O2 Flow FiO2 Time Delivery Rate 12/11/18 73 13:43 12/11/18 3.0 07:45 12/11/18 Nasal 07:36 Cannula 12/11/18 97.3 20 109/59 98 07:24 (76) 12/11/18 30 05:43 Intake and Output 12/10/18 12/10/18 12/11/18 1515:00 23:00 07:00 IntakeIntake Total 600 ml 500 ml OutputOutput Total 2400 ml 700 ml 250 ml BalanceBalance -2400 ml -100 ml 250 ml Exam Exam GENERAL: Patient is awake, alert, oriented, morbidly obese, does not appear c urrently on oxygen. Able to speak full sentences. HEENT: Pupils equal, round, reactive to light. LUNGS: Few crackles scattered bilaterally. ABDOMEN: Obese, soft, distended. Positive bowel sounds. EXTREMITIES: 2 to 3+ edema, right Perm-A-Cath in place. Results Result Diagram: 12/10/18 0938 12/10/18 0938 Results 24hrs Laboratory Tests Test 12/10/18 21:35 12/11/18 01:30 12/11/18 07:44 12/11/18 12:04 Bedside Glucose 164 138 122 164 Medications Medication Current Medications IV Flush (NS 3 ml) 3 ml PER PROTOCOL IV ; Start 12/08/18 at 03:00 Ondansetron HCl (Zofran Inj) 4 mg Q6H PRN IV NAUSEA/VOMITING; Start 12/08/18 at 03:00 Acetaminophen (Tylenol Tab) 650 mg Q6H PRN PO .PAIN 1-3 OR TEMP; Start 12/08/18 at 03:00 Atorvastatin Calcium (Lipitor) 20 mg QHS PO Last administered on 12/10/18 21:32; Admin Dose 20 MG; Start 12/08/18 at 21:00 Carvedilol (Coreg) 12.5 mg BID PO Last administered on 12/10/18 21:32; Admin Dose 12.5 MG; Start 12/08/18 at 03:00 Cholecalciferol (Vitamin D) 1,000 unit DAILY PO Last administered on 12/11/18 07:43; Admin Dose 1,000 UNIT; Start 12/08/18 at 09:00 Promethazine HCl/ Dextromethorphan (Phenergan-Dm) 5 ml Q6 PRN PO COUGH; Start 12/08/18 at 03:00 Gabapentin (Neurontin) 100 mg QHS PO Last administered on 12/10/18 21:32; Admin Dose 100 MG; Start 12/08/18 at 21:00 Albuterol/ Ipratropium (Duoneb) 3 ml Q3H RESP THERAPY PRN NEB WHEEZING AND SOB; Start 12/08/18 at 03:00 Losartan Potassium (Cozaar) 25 mg BID PO Last administered on 12/09/18at 20:45; Admin Dose 25 MG; Start 12/08/18 at 09:00 Pantoprazole (Protonix Tab) 40 mg AC BREAKFAST PO Last administered on 12/11/18 07:43; Admin Dose 40 MG; Start 12/08/18 at 07:00 Senna (Senokot) 1 tab BID PRN PO CONSTIPATION; Start 12/08/18 at 03:00 Bumetanide (Bumex) 1 mg BID DIURETICS IV Last administered on 12/11/18 06:18; Admin Dose 1 MG; Start 12/08/18 at 18:00 Heparin Sodium (Porcine) (Heparin (1000 Units/ml)) 4,000 unit AFTER DIALYSIS CATHETER ; Start 12/09/18 at 13:30 Mupirocin (Bactroban) 1 applic BID TOP Last administered on 12/11/18at 07:44; Admin Dose 1 APPLIC; Start 12/09/18 at 21:00 Apixaban (Eliquis) 5 mg BID PO Last administered on 12/11/18at 07:44; Admin Dose 5 MG; Start 12/09/18 at 21:00 Diagnostic Test (Pha) (Accu-Chek) 1 ea 02 XX Last administered on 12/11/18at 01:56; Admin Dose 1 EA; Start 12/11/18 at 02:00 Insulin Aspart (Novolog Insulin Pen) NOVOLOG *MILD* ALGORITHM WITH MEALS BEDTIME SC Last administered on 12/11/18at 12:18; Admin Dose 1 UNIT; Start 12/10/18 at 21:00 Miscellaneous Information 1 ea NOTE XX ; Start 12/10/18 at 20:30 Glucose (Glutose) 15 gm Q15M PRN PO DECREASED GLUCOSE; Start 12/10/18 at 20:30 Glucose (Glutose) 22.5 gm Q15M PRN PO DECREASED GLUCOSE; Start 12/10/18 at 20:30 Dextrose (D50w Syringe) 25 ml Q15M PRN IV DECREASED GLUCOSE; Start 12/10/18 at 20:30 Dextrose (D50w Syringe) 50 ml Q15M PRN IV DECREASED GLUCOSE; Start 12/10/18 at 20:30 Glucagon (Glucagen) 1 mg Q15M PRN IM DECREASED GLUCOSE; Start 12/10/18 at 20:30 Glucose (Glutose) 15 gm Q15M PRN BUCCAL DECREASED GLUCOSE; Start 12/10/18 at 20:30 Insulin Glargine (Lantus) 14 units HS SC Last administered on 12/10/18at 22:22; Admin Dose 14 UNITS; Start 12/10/18 at 21:30 ARNULFO RICHTER MD Dec 11, 2018 14:40
--- NOTE | 2018-12-11 15:09 | DS ---
Date/Time of Note Date/Time of Note DATE: 12/11/18 TIME: 15:06 Discharge Summary Admission/Discharge Info Admit Date/Time Dec 08, 2018 at 01:02 Discharge Date/Time Discharge Diagnosis 1. Acute respiratory failure. Hypoxic and hypercapnic. 2. Acute decompensated congestive heart failure. 3. Atrial fibrillation. 4. ESRD on HD. 5. Diabetes mellitus type II. Hemoglobin A1c 6.7. 6. Ischemic cardiomyopathy. EF of 25-30% as per 2D echocardiogram. 7. CAD, status post coronary artery bypass grafting. 8. Hypertension. 9. Pulmonary hypertension. PA systolic pressure 60 mmHg as per 2D echocardiogram. 10. Normocytic and normochromic anemia. 11. Morbid obesity. BMI more than 40. 12. History of cardiac arrest. Status post tracheostomy and PEG tube placement with reversal. 13. History of embolic stroke. Patient Condition: Fair Consults 1. Nicolette Quintanilla MD, Nephrology. 2. Ronald Grullon DO, Cardiology. Procedures 2D Echocardiogram Conclusions: Severe concentric left ventricular hypertrophy. Severe enlargement of left ventricle cavity. Severe global left ventricular systolic dysfunction. Ejection fraction is visually estimated at 25-30 %. Tissue Doppler/Mitral Doppler indices are consistent with restrictive physiology with markedly elevated left atrial pressure (Stage III-IV diastolic dysfunction). There is severe enlargement of left atrium. Normal appearance of the mitral valve. Mild mitral annular calcification. Mild to moderate mitral valve regurgitation. Normal appearance of the tricuspid valve. Estimated peak PA systolic pressure 60 mmHg. There is moderate tricuspid regurgitation. Pulmonic valve not well visualized. There is trace pulmonic regurgitation. CXR IMPRESSION: 1. Markedly enlarged cardiac silhouette, grossly unchanged. Aortic atherosclerosis. 2. Central pulmonary vascular congestion and interstitial prominence which may reflect edema. 3. Similar appearance of right basilar subsegmental atelectasis versus infiltrate. Small pleural effusions. Hx of Present Illness This is a 53-year-old male with past medical history of PEA cardiac arrest, CAD status post CABG, ischemic cardiomyopathy, chronic nonhemorrhagic infarcts within the bilateral occipital lobes, paroxysmal atrial fibrillation, end-stage renal disease on hemodialysis (Tuesdays//Saturdays), diabetes mellitus type 2, systemic hypertension, pulmonary hypertension, anemia, and obesity. The patient came to the emergency room because of dyspnea and increasing edema of bilateral lower extremities. The patient's chest x-ray showed mild cardiomegaly with worsening mild to moderate central pulmonary vascular congestion and interstitial edema with small bilateral pleural effusions. The patient was admitted to inpatient setting for further treatment and evaluation. Hospital Course The patient had evidence of underlying respiratory failure, hypoxic and hypercapnic. The patient was initially maintained on noninvasive positive pressure ventilation. The patient was gradually weaned off noninvasive positive pressure ventilation. Etiology of the patient's respiratory failure could have been secondary to underlying fluid overload. The patient had evidence of acute decompensated congestive heart failure, systolic dysfunction. The patient was maintained on ultrafiltration at frequent intervals than his regular schedule of hemodialysis with improvement in the patient's symptoms. The patient's a 2D echocardiogram confirmed cardiomyopathy with ejection fraction of 25 to 30%. The patient was maintained on beta-blockers and ARB's. The patient has prior history of CAD and he is status post coronary artery bypass grafting. The patient has underlying cardiomyopathy secondary to ischemia. The patient was also maintained on Bumex for a short period with improvement in the patient's symptoms. The patient has underlying atrial fibrillation. The patient was maintained on beta-blockers. The patient's rate was controlled. The patient needs therapeutic anticoagulation because of atrial fibrillation and prior history of stroke. Therefore, cardiology consult was obtained. The patient was previously on Eliquis but had to be taken off because of anemia. The patient was resumed on Eliquis and the patient's H&H was monitored closely. The patient's aspirin was put on hold when the patient was initiated on Eliquis to avoid any bleeding and worsening of anemia. The patient has underlying diabetes mellitus. The patient was continued on sliding scale insulin along with basal insulin. The patient's hemoglobin A1c was found to be 6.7. The patient was maintained on statins for his underlying dyslipidemia as well as history of CAD. The patient was maintained on antihypertensives for his underlying hypertension. The patient also has pulmonary hypertension with a PA systolic pressure 60 mmHg as per 2D echocardiogram. The patient's pulmonary hypertension could be secondary to his left heart disease. The patient was maintained on supplemental oxygen. The patient was also noticed to have normocytic, normochromic anemia, most probably anemia chronic kidney disease. The patient's H&H remained stable. The patient is morbidly obese with a BMI of more than 40 kg/m. The patient was advised on weight reduction. The patient has been noncompliant with his diet including sodium intake. The patient was reinforced multiple times on the importance of being compliant with this diet. Discharge Instructions 1. Medications as per medication list. 2. Take a low carbohydrate,, low-sodium, low potassium diet. 3. Resume activities as tolerated. 4. Follow-up with your hemodialysis clinic as scheduled. 5. Follow-up with Dr. Grullon in 2 weeks. Nursing was instructed to endorse the discharge instructions to the nursing personnel at the transferring facility. At this time I would like to thank all the consultants for seeing the patient and providing clinical recommendations. The patient was seen in collaboration with Dr. Strickland. . Home Meds Active Scripts Mupirocin* (Bactroban*) 2% -22 Gram Oint...g., 1 APPLIC TOP BID for 5 Days Prov:HANNAH ONOFRE NP 12/11/18 Apixaban* (Eliquis*) 5 Mg Tablet, 5 MG PO BID for 30 Days, TAB Prov:HANNAH ONOFRE NP 12/11/18 [Insulin Glargine] 100 UNITS/ML SOLN No Conflict Check, 14 UNITS SC HS for 30 Days Prov:HANNAH ONOFRE NP 12/11/18 Insulin Aspart* (Novolog Insulin Pen*) 100 Unit/Ml Soln, 0 UNIT SC WITH MEALS BEDTIME for 30 Days Prov:HANNAH ONOFRE NP 12/11/18 Carvedilol* (Carvedilol*) 12.5 Mg Tablet, 12.5 MG PO BID, #60 TAB Prov:HANNAH ONOFRE NP 10/31/17 Reported Medications Sennosides* (Senokot*) 8.6 Mg Tablet, 1 TAB PO BID PRN for CONSTIPATION, TAB 09/19/18 Pantoprazole* (Pantoprazole*) 40 Mg Tablet., 40 MG PO AC BREAKFAST, TAB 09/19/18 Cholecalciferol* (Vitamin D3*) 1,000 Unit Tablet, 1000 UNIT PO DAILY, TAB 09/19/18 Omeprazole* (Omeprazole*) 20 Mg Capsule.dr, 20 MG PO DAILY, #30 CAP 07/30/18 Gabapentin* (Gabapentin*) 100 Mg Capsule, 100 MG PO QHS, #90 CAP 04/07/18 Atorvastatin Calcium (Atorvastatin Calcium) 20 Mg Tablet, 20 MG PO QHS, #30 TAB 04/07/18 Ipratropium-Albuterol (Ipratropium-Albuterol) 0.5-3 Mg/3 Ml Ampul.neb, 3 ML INHALATION Q6 PRN for WHEEZING AND SOB, #30 VIAL 04/07/18 Losartan Potassium* (Losartan Potassium*) 25 Mg Tablet, 25 MG PO BID, TAB 04/07/18 Discontinued Reported Medications Acidophilus-Bulgaricus* (BD Lactinex*) 1 Pkt Packet, 1 PKT GTB DAILY, PACKET 09/19/18 Dextromethorphan Hb-Promethazine Hcl* (Promethazine DM* Syrup) 473 Ml Syrup, 5 ML PO Q6 PRN for COUGH, ML 09/19/18 Clonidine Hcl* (Clonidine Hcl*) 0.1 Mg Tab, 0.1 MG PO DAILY, TAB HOLD IF SBP<130 09/19/18 Aspirin* (Aspirin* Chew) 81 Mg Tab.chew, 81 MG PO DAILY, TAB.CHEW 09/19/18 Acetaminophen* (Acetaminophen*) 500 MG Extra Strength Tablet, 1000 MG PO Q6H PRN for PAIN AND OR ELEVATED TEMP, TAB 09/19/18 Follow-up Plan Ronald Grullon DO Specialty: Cardiovascular Disease Office Address [facility] [address] [place] [id number] Office Primary Care Provider Not On Staff Doctor Time spent on discharge: > 30 minutes Pending Labs Laboratory Tests Test 12/10/18 21:35 12/11/18 01:30 12/11/18 07:44 12/11/18 12:04 Bedside 164 138 122 164 Glucose mg/dL (70-220) mg/dL (70-220) mg/dL (70-220) mg/dL (70-220) HANNAH ONOFRE NP Dec 11, 2018 15:09
[2018-12-11] MEDS ORDERED: ALBUMIN HUMAN 25% 100 ML IV PRN (16:00)
--- NOTE | 2018-12-11 16:19 | CONS ---
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 He does admit to poor compliance with medications as well as low-sodium diet -Symptoms have been improving after hemodialysis -Fluid management via hemodialysis -Continue beta-maritza as heart rate and blood pressure permits, ARB as blood pressure permits -Patient was on anticoagulation in the past but did have issues of anemia, that was in the setting of acute illness. Given history of CVA and multiple risk factors for thromboembolism, anticoagulation was restarted on this admission. Would watch hemoglobin and for any signs of bleeding Consultation Date/Type/Reason Admit Date/Time Dec 08, 2018 at 01:02 Initial Consult Date Type of Consult Cardiology Date/Time of Note DATE: 12/11/18 TIME: 16:18 24 HR Interval Summary Free Text/Dictation Feeling better, denies shortness of breath, lower extremity swelling is improving Exam/Review of Systems Vital Signs Vitals Vital Signs Date Temp Pulse Resp B/P (MAP) Pulse Ox O2 O2 Flow FiO2 Time Delivery Rate 12/11/18 74 16:09 12/11/18 97.7 20 109/72 99 15:29 (84) 12/11/18 3.0 07:45 12/11/18 Nasal 07:36 Cannula 12/11/18 30 05:43 Intake and Output 12/10/18 12/10/18 12/11/18 1515:00 23:00 07:00 IntakeIntake Total 600 ml 500 ml OutputOutput Total 2400 ml 700 ml 250 ml BalanceBalance -2400 ml -100 ml 250 ml Exam Constitutional: alert, oriented (No apparent distress, no dyspnea with speaking) Head: normocephalic Respiratory: other (Coarse breath sounds bilaterally, no wheezing) Cardiovascular: regular rate and rhythm (S1-S2 heard) Gastrointestinal: soft, non-tender, bowel sounds Extremities: edema Labs Result Diagram: 12/10/18 0938 12/10/18 0938 Results 24hrs Laboratory Tests Test 12/10/18 21:35 12/11/18 01:30 12/11/18 07:44 12/11/18 12:04 Bedside Glucose 164 138 122 164 Medications Medications Current Medications IV Flush (NS 3 ml) 3 ml PER PROTOCOL IV ; Start 12/08/18 at 03:00 Ondansetron HCl (Zofran Inj) 4 mg Q6H PRN IV NAUSEA/VOMITING; Start 12/08/18 at 03:00 Acetaminophen (Tylenol Tab) 650 mg Q6H PRN PO .PAIN 1-3 OR TEMP; Start 12/08/18 at 03:00 Atorvastatin Calcium (Lipitor) 20 mg QHS PO Last administered on 12/10/18 21:32; Admin Dose 20 MG; Start 12/08/18 at 21:00 Carvedilol (Coreg) 12.5 mg BID PO Last administered on 12/10/18 21:32; Admin Dose 12.5 MG; Start 12/08/18 at 03:00 Cholecalciferol (Vitamin D) 1,000 unit DAILY PO Last administered on 12/11/18 07:43; Admin Dose 1,000 UNIT; Start 12/08/18 at 09:00 Promethazine HCl/ Dextromethorphan (Phenergan-Dm) 5 ml Q6 PRN PO COUGH; Start 12/08/18 at 03:00 Gabapentin (Neurontin) 100 mg QHS PO Last administered on 12/10/18 21:32; A dmin Dose 100 MG; Start 12/08/18 at 21:00 Albuterol/ Ipratropium (Duoneb) 3 ml Q3H RESP THERAPY PRN NEB WHEEZING AND SOB; Start 12/08/18 at 03:00 Losartan Potassium (Cozaar) 25 mg BID PO Last administered on 12/09/18at 20:45; Admin Dose 25 MG; Start 12/08/18 at 09:00 Pantoprazole (Protonix Tab) 40 mg AC BREAKFAST PO Last administered on 12/11/18 07:43; Admin Dose 40 MG; Start 12/08/18 at 07:00 Senna (Senokot) 1 tab BID PRN PO CONSTIPATION; Start 12/08/18 at 03:00 Bumetanide (Bumex) 1 mg BID DIURETICS IV Last administered on 12/11/18 06:18; Admin Dose 1 MG; Start 12/08/18 at 18:00 Heparin Sodium (Porcine) (Heparin (1000 Units/ml)) 4,000 unit AFTER DIALYSIS CATHETER ; Start 12/09/18 at 13:30 Mupirocin (Bactroban) 1 applic BID TOP Last administered on 12/11/18at 07:44; Admin Dose 1 APPLIC; Start 12/09/18 at 21:00 Apixaban (Eliquis) 5 mg BID PO Last administered on 12/11/18at 07:44; Admin Dose 5 MG; Start 12/09/18 at 21:00 Diagnostic Test (Pha) (Accu-Chek) 1 ea 02 XX Last administered on 12/11/18at 01:56; Admin Dose 1 EA; Start 12/11/18 at 02:00 Insulin Aspart (Novolog Insulin Pen) NOVOLOG *MILD* ALGORITHM WITH MEALS BEDTIME SC Last administered on 12/11/18at 12:18; Admin Dose 1 UNIT; Start 12/10/18 at 21:00 Miscellaneous Information 1 ea NOTE XX ; Start 12/10/18 at 20:30 Glucose (Glutose) 15 gm Q15M PRN PO DECREASED GLUCOSE; Start 12/10/18 at 20:30 Glucose (Glutose) 22.5 gm Q15M PRN PO DECREASED GLUCOSE; Start 12/10/18 at 20:30 Dextrose (D50w Syringe) 25 ml Q15M PRN IV DECREASED GLUCOSE; Start 12/10/18 at 20:30 Dextrose (D50w Syringe) 50 ml Q15M PRN IV DECREASED GLUCOSE; Start 12/10/18 at 20:30 Glucagon (Glucagen) 1 mg Q15M PRN IM DECREASED GLUCOSE; Start 12/10/18 at 20:30 Glucose (Glutose) 15 gm Q15M PRN BUCCAL DECREASED GLUCOSE; Start 12/10/18 at 20:30 Insulin Glargine (Lantus) 14 units HS SC Last administered on 12/10/18at 22:22; Admin Dose 14 UNITS; Start 12/10/18 at 21:30 Albumin Human 100 ml @ 100 mls/hr DURING DIALYSIS PRN IV Dialysis; Start at 16:00 Ronald Grullon DO Dec 11, 2018 16:19
[2018-12-11] MEDS: INSULIN GLARGINE [LANTus] (100 UNITS/ML) SYG SC SCH (21:00)
[2018-12-11] MEDS: ATORVASTATIN 20 MG TAB PO SCH (21:33)
[2018-12-11] MEDS: GABAPENTIN 100 MG CAP PO SCH (21:33)
== END 2018-12-11 21:00 | DRG 291 ==
LOC: E/R 20:08 → TEL 12-08 01:02
PROVIDERS: ADMIT Internal Medicine; ATTEND Internal Medicine
PROC: 5A09357 Assistance with Respiratory Ventilation, Less than 24 Consecutive Hours, Continuous Positive Airway Pressure (ICD-10-PCS; principal; 2018-12-07)
PROC: 4A033R1 Measurement of Arterial Saturation, Peripheral, Percutaneous Approach (ICD-10-PCS; 2018-12-07)
PROC: 5A1D70Z Performance of Urinary Filtration, Intermittent, Less than 6 Hours Per Day (ICD-10-PCS; 2018-12-11)
DX: I13.2 Hypertensive heart and chronic kidney disease with heart failure and with stage 5 chronic kidney disease, or end stage renal disease (principal); N18.6 End stage renal disease; I50.23 Acute on chronic systolic (congestive) heart failure; J96.02 Acute respiratory failure with hypercapnia; J96.01 Acute respiratory failure with hypoxia; Z68.41 Body mass index [BMI] 40.0-44.9, adult; E11.22 Type 2 diabetes mellitus with diabetic chronic kidney disease; Z86.74 Personal history of sudden cardiac arrest; E78.5 Hyperlipidemia, unspecified; E66.01 Morbid (severe) obesity due to excess calories; I25.5 Ischemic cardiomyopathy; Z91.15 Patient's noncompliance with renal dialysis; E11.40 Type 2 diabetes mellitus with diabetic neuropathy, unspecified; E11.21 Type 2 diabetes mellitus with diabetic nephropathy; I27.20 Pulmonary hypertension, unspecified; I25.10 Atherosclerotic heart disease of native coronary artery without angina pectoris; G47.33 Obstructive sleep apnea (adult) (pediatric); F17.200 Nicotine dependence, unspecified, uncomplicated; D64.9 Anemia, unspecified; I48.0 Paroxysmal atrial fibrillation; I42.9 Cardiomyopathy, unspecified; I08.0 Rheumatic disorders of both mitral and aortic valves; Z99.2 Dependence on renal dialysis; Z79.82 Long term (current) use of aspirin; Z95.1 Presence of aortocoronary bypass graft; Z86.73 Personal history of transient ischemic attack (TIA), and cerebral infarction without residual deficits
CPT/HCPCS: 36415; 36600; 71045; 80048; 80053; 80061; 82803; 82962; 83036; 83735; 83880; 84100; 84484; 85025; 87081; 87340; 90935; 93005; 93306; 94660; J1644; J1815; J3475; P9047

== ENCOUNTER 2019-03-09 22:34 | Inpatient (IN) | payer MEDICARE, BC ==
[~2019-03-09] VITALS: Ht 180.3 cm; Wt 130.2 kg
[~2019-03-09 22:34] MED LIST changes: -ACET-141 PO; +APIX5TAB PO; -ASPI-903 PO; -CLON-379 PO; -D-ME473S2 PO; +Insulin Glargine SC; -LACTINEXG GTB; +MUPI22OI2 TOP; +NOVO3I SC
[2019-03-10] VITALS (29 sets, daily range): BP systolic 101–162; BP diastolic 59–100; PULSE 56–94; RESP 18–26; Ht 180.3 cm; Wt 130.2 kg
[2019-03-10] MEDS ORDERED: ONDANSETRON 4 MG INJ IV PRN ×2 (01:00→04:30)
[2019-03-10] MEDS ORDERED: ACETAMINOPHEN 325 MG TAB PO PRN (01:00)
--- NOTE | 2019-03-10 01:56 | ERD ---
ER Documentation Chief Complaint Chief Complaint SOB X'S 2 DAYS HPI This is a very pleasant 53-year-old male shortness breath opacities. Denies fevers chills nausea vomiting. Pain is worse. He is a end-stage renal dialysis patient. Denies any other current complaints. ROS All systems reviewed and are negative except as per history of present illness. Medications Home Meds Active Scripts Mupirocin* (Bactroban*) 2% -22 Gram Oint...g., 1 APPLIC TOP BID for 5 Days Prov:HANNAH ONOFRE [employer] 12/11/18 Apixaban* (Eliquis*) 5 Mg Tablet, 5 MG PO BID for 30 Days, TAB Prov:HANNAH ONOFRE NP 12/11/18 [Insulin Glargine] 100 UNITS/ML SOLN No Conflict Check, 14 UNITS SC HS for 30 Days Prov:HANNAH ONOFRE NP 12/11/18 Insulin Aspart* (Novolog Insulin Pen*) 100 Unit/Ml Soln, 0 UNIT SC WITH MEALS BEDTIME for 30 Days Prov:HANNAH ONOFRE NP 12/11/18 Carvedilol* (Carvedilol*) 12.5 Mg Tablet, 12.5 MG PO BID, #60 TAB Prov:HANNAH ONOFRE [employer] 10/31/17 Reported Medications Sennosides* (Senokot*) 8.6 Mg Tablet, 1 TAB PO BID PRN for CONSTIPATION, TAB 09/19/18 Pantoprazole* (Pantoprazole*) 40 Mg Tablet.dr, 40 MG PO AC BREAKFAST, TAB 09/19/18 Cholecalciferol* (Vitamin D3*) 1,000 Unit Tablet, 1000 UNIT PO DAILY, TAB 09/19/18 Omeprazole* (Omeprazole*) 20 Mg Capsule.dr, 20 MG PO DAILY, #30 CAP 07/30/18 Gabapentin* (Gabapentin*) 100 Mg Capsule, 100 MG PO QHS, #90 CAP 04/07/18 Atorvastatin Calcium (Atorvastatin Calcium) 20 Mg Tablet, 20 MG PO QHS, #30 TAB 04/07/18 Ipratropium-Albuterol (Ipratropium-Albuterol) 0.5-3 Mg/3 Ml Ampul.neb, 3 ML INHALATION Q6 PRN for WHEEZING AND SOB, #30 VIAL 04/07/18 Losartan Potassium* (Losartan Potassium*) 25 Mg Tablet, 25 MG PO BID, TAB 04/07/18 Allergies Allergies: Coded Allergies: lisinopril (Verified Allergy, Intermediate, 09/19/18) Patient cannot tolerate the lisinopril. patient coughs. PMhx/Soc History of Surgery: Yes (CABG,Dialysis permacath placement trach, Gtube placement) Anesthesia Reaction: No Hx Neurological Disorder: No Hx Respiratory Disorders: Yes (PNA,COPD,Trach, s/p Ventilator) Hx Cardiac Disorders: Yes (CHF,HTN, CAD) Hx Psychiatric Problems: No Hx Miscellaneous Medical Probl: No Hx Alcohol Use: Yes Hx Substance Use: No Hx Tobacco Use: Yes Smoking Status: Current every day smoker Physical Exam Vitals Vital Signs Date Temp Pulse Resp B/P (MAP) Pulse Ox O2 O2 Flow FiO2 Time Delivery Rate 03/10/19 93 20 147/94 96 BIPAP 01:14 (111) 03/10/19 92 97 35 00:37 03/09/19 85 20 146/93 98 BIPAP 23:33 (110) 03/09/19 80 94 50 23:00 03/09/19 97.4 63 20 146/70 86 22:39 (95) Physical Exam Const: No acute distress Head: Atraumatic Eyes: Normal Conjunctiva ENT: Normal External Ears, Nose and Mouth. Neck: Full range of motion. No meningismus. Resp: Clear to auscultation bilaterally Cardio: Regular rate and rhythm, no murmurs Abd: Soft, non tender, non distended. Normal bowel sounds Skin: No petechiae or rashes Back: No midline or flank tenderness Ext: No cyanosis, or edema Neur: Awake and alert Psych: Normal Mood and Affect Result Diagram: 03/09/19225703/09/192257 Results 24 hrs Laboratory Tests Test 03/09/19 22:58 03/10/19 00:00 White Blood Count 8.1 10^3/ul Red Blood Count 3.40 10^6/ul Hemoglobin 10.4 g/dl Hematocrit 34.2 % Mean Corpuscular Volume 100.6 fl Mean Corpuscular Hemoglobin 30.6 pg Mean Corpuscular Hemoglobin Concent 30.4 g/dl Red Cell Distribution Width 15.9 % Platelet Count 149 10^3/UL Mean Platelet Volume 10.9 fl Immature Granulocytes % 0.400 % Neutrophils % 67.2 % Lymphocytes % 16.5 % Monocytes % 5.0 % Eosinophils % 9.8 % Basophils % 1.1 % Nucleated Red Blood Cells % 0.0 /100WBC Immature Granulocytes # 0.030 10^3/ul Neutrophils # 5.5 10^3/ul Lymphocytes # 1.3 10^3/ul Monocytes # 0.4 10^3/ul Eosinophils # 0.8 10^3/ul Basophils # 0.1 10^3/ul Nucleated Red Blood Cells # 0.0 10^3/ul Sodium Level 139 mmol/L Potassium Level 5.6 mmol/L Chloride Level 98 mmol/L Carbon Dioxide Level 25 mmol/L Anion Gap 16 Blood Urea Nitrogen 70 mg/dl Creatinine 9.04 mg/dl Est Glomerular Filtrat Rate mL/min 6 mL/min Glucose Level 182 mg/dl Calcium Level 9.6 mg/dl Total Bilirubin 0.3 mg/dl Direct Bilirubin 0.00 mg/dl Indirect Bilirubin 0.3 mg/dl Aspartate Amino Transf (AST/SGOT) 12 IU/L Alanine Aminotransferase (ALT/SGPT) 20 IU/L Alkaline Phosphatase 58 IU/L Troponin I 0.082 ng/ml B-Type Natriuretic Peptide 90938 PG/ML Total Protein 7.4 g/dl Albumin 4.1 g/dl Globulin 3.30 g/dl Albumin/Globulin Ratio 1.24 Lipase 758 U/L Blood Gas Specimen Source Blood arterial Arterial Blood Date Drawn 03/10/2019 12:20:06 AM Arterial Blood pH (Temp corrected) 7.216 Arterial Blood pCO2 (Temp correct) 61.6 mmhg Arterial Blood pO2 (Temp corrected) 109.3 mmHG Arterial Blood HCO3 24.4 mmol/L Arterial Blood Base Excess -4.0 mmol/L Arterial Blood Oxygen Saturation 97.0 mmHG Luis Armando Test N/A Arterial Blood Gas Puncture Site LB Arterial Blood Carboxyhemoglobin 2.7 % Arterial Blood Methemoglobin 0.1 % Blood Gas A-a O2 Differential 177.9 mmHg Oxyhemoglobin Percent 94.3 % Blood Gas Temperature 37.0 C Blood Gas Respiration Rate 16.0 Blood Gas Actual Respiration Rate 17 Blood Gas Modality MASK - BIPAP FiO2 50.0 % Blood Gas Pressure Support 10 Blood Gas Critical Value Read Back Zuly BAKER MD Blood Gas Notified Whom KM Blood Gas Notified Time 03/10/2019 12:32:59 AM Current Medications Medications Dose Sig/Chi Start Time Status Last (Trade) Ordered Route PRN Stop Time Admin Dose Reason Admin Ondansetron 4 mg ER BRIDGE 03/10/19 HCl (Zofran PRN IV 01:00 Inj) NAUSEA/VOMITI 03/11/19 00:59 NG 650 mg ER BRIDGE 03/10/19 Acetaminophen PRN PO 01:00 (Tylenol .MILD PAIN 03/11/19 00:59 Tab) 1-3 OR TEMP Procedures/MDM EKG: Rate/Rhythm: [Normal Sinus Rhythm] QRS, ST, T-waves: [No changes consistent w/ acute ischemia] Impression: [No evidence of ischemia or arrhythmia] Chest X-ray 1V Interpreted by me: Soft Tissue: No acute abnormalities Bones: No acute abnormalities Mediastinum/Cardiac Silhouette/Lungs: [No acute abnormalities] Patient's heart failure symptoms is concerning for acute decompensation and will require inpatient workup and monitoring. Further w/u for ischemia, arrhythmia, PE or dissection will be deferred to the inpatient team. Accepting Care Team: Current data and ongoing care discussed. Time: 1 AM Primary Provider: Hospitalist Consulting: Deferred to inpatient team Outstanding Data: none Departure Diagnosis: Primary Impression: CHF (congestive heart failure) Heart failure type: unspecified Condition: Serious PAYAM BAKER Mar 10, 2019 01:56
[2019-03-10] MEDS ORDERED: ALBUTEROL/IPRATROPIUM (NEB) 3 ML AMP NEB PRN (04:30)
[2019-03-10] MEDS ORDERED: NACL 0.9% 3 ML SYG IV SCH (04:30)
[2019-03-10] MEDS ORDERED: ALBUTEROL/IPRATROPIUM (NEB) 3 ML AMP HHN PRN (04:30)
[2019-03-10] MEDS ORDERED: NITROGLYCERIN (SL) 0.4 MG TAB SL PRN (04:30)
[2019-03-10] MEDS ORDERED: SENNA TAB PO PRN (04:30)
[2019-03-10] MEDS ORDERED: FUROSEMIDE 40 MG INJ IV ONE (06:00)
[2019-03-10] MEDS ORDERED: PANTOPRAZOLE (EC) 40 MG TAB PO SCH (06:00)
[2019-03-10] MEDS: PANTOPRAZOLE (EC) 40 MG TAB PO SCH (06:16)
[2019-03-10] MEDS ORDERED: LEVOFLOXACIN 750MG/D5W (PMX) 150 ML IVPB SCH (06:30)
[2019-03-10] MEDS: INSULIN ASPART [NOVOLOG] 3 ML PEN SC SCH ×4 (07:27→20:37)
[2019-03-10] MEDS: ALBUTEROL/IPRATROPIUM (NEB) 3 ML AMP NEB SCH ×3 (07:33→19:26)
[2019-03-10] MEDS: CHOLECALCIFEROL 1,000 UNIT TAB PO SCH (08:04)
[2019-03-10] MEDS: APIXABAN 5 MG TABLET PO SCH ×2 (08:04→20:08)
[2019-03-10] MEDS: LOSARTAN 25 MG TAB PO SCH ×2 (08:05→20:08)
--- NOTE | 2019-03-10 08:28 | HP ---
Date/Time of Note Date/Time of Note DATE: 03/10/19 TIME: 08:24 Assessment/Plan VTE Prophylaxis Risk score (from Ns)>0 risk: 4 [place] [facility] [place] Yes Pharmacological prophylaxis: apixaban Lines/Catheters IV Catheter Type (from Nrs): Permacath Assessment/Plan Assessment/Plan 1. Hypoxic and hypercapnic restorative failure, secondary to CHF exacerbation -Supplemental oxygen, as needed BiPAP -Diuresis -Continue cardiac meds -Repeat ABG -Cardiology and pulmonary consult in a.m. 2. ESRD on HD: Nephrology consult 3. Ischemic cardiomyopathy with EF of 25% -See #1 4. Atrial fibrillation: Rate controlled -Continue cardiac meds including Eliquis 5. History of CAD with CABG: Continue cardiac meds 6. History of embolic stroke: Continue Eliquis 7. Diabetes: Insulin while in-house 8. Morbid obesity with a BMI of 40: Weight reduction will be reinforced throughout hospitalization 9. Hyperkalemia -Nephrology for dialysis 10 left lower lung opacity: Likely from a pulmonary edema -will consider empiric antibiotic given significant SOB Result Diagram: 03/10/19 0429 03/10/19 0429 Results 24hrs Laboratory Tests Test 03/09/19 22:58 03/10/19 00:00 03/10/19 02:00 03/10/19 04:29 White Blood 8.1 # 7.3 Count Red Blood Count 3.40 L 3.48 L Hemoglobin 10.4 L 10.7 L Hematocrit 34.2 L 35.7 L Mean 100.6 102.6 H Corpuscular Volume Mean 30.6 30.7 Corpuscular Hemoglobin Mean 30.4 L 30.0 L Corpuscular Hemoglobin Conc ent Red Cell 15.9 H 16.3 H Distribution Width Platelet Count 149 # 141 Mean Platelet 10.9 H 11.8 H Volume Immature 0.400 0.400 Granulocytes % Neutrophils % 67.2 66.2 Lymphocytes % 16.5 17.1 Monocytes % 5.0 5.4 Eosinophils % 9.8 H 9.8 H Basophils % 1.1 1.1 Nucleated Red 0.0 0.0 Blood Cells % Immature 0.030 0.030 Granulocytes # Neutrophils # 5.5 4.8 Lymphocytes # 1.3 1.2 Monocytes # 0.4 0.4 Eosinophils # 0.8 H 0.7 H Basophils # 0.1 0.1 Nucleated Red 0.0 0.0 Blood Cells # Sodium Level 139 138 Potassium Level 5.6 H 5.8 H Chloride Level 98 97 Carbon Dioxide 25 28 Level Anion Gap 16 H 13 Blood Urea 70 H 75 H Nitrogen Creatinine 9.04 H 9.16 H Est Glomerular 6 L 6 L Filtrat Rate mL/min Glucose Level 182 122 # Calcium Level 9.6 9.8 Total Bilirubin 0.3 0.3 Direct 0.00 0.00 Bilirubin Indirect 0.3 0.3 Bilirubin Aspartate Amino 12 L 12 L Transf (AST/SGO T) Alanine 20 18 Aminotransferas e (ALT/SGPT) Alkaline 58 53 Phosphatase Troponin I 0.082 B-Type 23119 H Natriuretic Peptide Total Protein 7.4 7.3 Albumin 4.1 4.0 Globulin 3.30 H 3.30 H Albumin/Globuli 1.24 1.21 n Ratio Lipase 758 H Blood Gas Blood arterial Blood Specimen arterial Source Arterial Blood 03/10/2019 12:20 03/10/2019 2:32 Date Drawn :06 AM :17 AM Arterial Blood 7.216 *L 7.204 *L pH (Temp corrected ) Arterial Blood 61.6 H 68.3 H pCO2 (Temp correct) Arterial Blood 109.3 H 73.9 L pO2 (Temp corrected ) Arterial Blood 24.4 26.3 H HCO3 Arterial Blood -4.0 L -2.7 Base Excess Arterial Blood 97.0 92.1 L Oxygen Saturati on Luis Armando Test N/A ACCEPTAB Arterial Blood LB Left Radial Gas Puncture Site Arterial 2.7 2.5 Blood Carboxyhe moglobin Arterial Blood 0.1 0 Methemoglobin Blood Gas A-a 177.9 H 96.3 H O2 Differential Oxyhemoglobin 94.3 89.8 L Percent Blood Gas 37.0 37.0 Temperature Blood Gas 16.0 20.0 Respiration Rate Blood Gas 17 20 Actual Respiration Rat e Blood Gas MASK - BIPAP MASK - BIPAP Modality FiO2 50.0 35.0 Blood Gas 10 Pressure Support Blood Gas Zuly BAKER MD, M.D. Critical Value Read Back Blood Gas KM BR Notified Whom Blood Gas 03/10/2019 12:32 03/10/2019 2:37 Notified Time :59 AM :39 AM Blood Gas 8 IPAP/EPAP Ratio Magnesium Level 2.4 Test 03/10/19 04:30 03/10/19 07:26 Blood Gas Blood arterial Specimen Source Arterial Blood 03/10/2019 4:24: Date Drawn 44 AM Arterial Blood 7.222 *L pH (Temp corrected ) Arterial Blood 65.7 H pCO2 (Temp correct) Arterial Blood 61.3 L pO2 (Temp corrected ) Arterial Blood 26.4 H HCO3 Arterial Blood -2.3 Base Excess Arterial Blood 88.3 L Oxygen Saturati on Luis Armando Test ACCEPTAB Arterial Blood Right Radial Gas Puncture Site Arterial 2.1 Blood Carboxyhe moglobin Arterial Blood 0 Methemoglobin Blood Gas A-a 221.3 H O2 Differential Oxyhemoglobin 86.4 L Percent Blood Gas 37.0 Temperature Blood Gas 26.0 Respiration Rate Blood Gas 26 Actual Respiration Rat e Blood Gas MASK - BIPAP Modality FiO2 50.0 Blood Gas Tidal 578.0 Volume Blood Gas 22/8 IPAP/EPAP Ratio Blood Gas Vivienne. C RN Critical Value Read Back Blood Gas LT Notified Whom Blood Gas 03/10/2019 4:33: Notified Time 28 AM Creatine Kinase 66 Creatine Kinase 4.8 Index Creatinine 3.20 H Kinase MB (Mass) Troponin I 0.091 Bedside Glucose 139 HPI/ROS Admit Date/Time Admit Date/Time Mar 10, 2019 at 00:54 Hx of Present Illness Patient is a 53-year-old morbidly obese male with a history of ischemic car diomyopathy with EF of 25%, cardiac arrest, atrial fibrillation, CAD with CABG, ESRD on HD, CVA, diabetes. Patient presented to the ER complaining of shortness of breath, lower extremity swelling, distended abdomen and chest pain. When he presented to the ER, ABG 50% shows a pH of 7.216, PCO2 61, PO2 106, bicarb 24. Patient was placed on BiPAP, but has been progressively more lethargic and more unresponsive. Repeat ABG on a 35% FiO2 shows a pH of 7.204, PCO2 worsening at 68, PO2 74, bicarb 26. In the telemetry unit, after a while patient becomes more responsive and now he is following commands and attempts to answer questions only limited by his BiPAP. Patient was admitted here in November of this year for respiratory failure and was treated with BiPAP. PMH/Family/Social Past Medical History Medical History: other (See HPI) Medications Current Medications IV Flush (NS 3 ml) 3 ml PER PROTOCOL IV ; Start 03/10/19 at 04:30 Ondansetron HCl (Zofran Inj) 4 mg Q6H PRN IV NAUSEA/VOMITING; Start 03/10/19 at 04:30 Nitroglycerin (Nitroglycerin (Sl Tab) 0.4 Mg) 1 tab Q5M PRN SL .CHEST PAIN; Start 03/10/19 at 04:30 Albuterol/ Ipratropium (Duoneb) 3 ml Q2H RESP THERAPY PRN HHN SHORTNESS OF BREATH; Start 03/10/19 at 04:30 Apixaban (Eliquis) 5 mg BID PO Last administered on 03/10/19at 08:04; Admin Dose 5 MG; Start 03/10/19 at 09:00 Atorvastatin Calcium (Lipitor) 20 mg QHS PO ; Start 03/10/19 at 21:00 Carvedilol (Coreg) 12.5 mg BID PO Last administered on 03/10/19at 08:05; Admin Dose 12.5 MG; Start 03/10/19 at 09:00 Cholecalciferol (Vitamin D) 1,000 unit DAILY PO Last administered on 03/10/19at 08:04; Admin Dose 1,000 UNIT; Start 03/10/19 at 09:00 Gabapentin (Neurontin) 100 mg QHS PO ; Start 03/10/19 at 21:00 Losartan Potassium (Cozaar) 25 mg BID PO ; Start 03/10/19 at 09:00 Pantoprazole (Protonix Tab) 40 mg AC BREAKFAST PO Last administered on 03/10/19at 06:16; Admin Dose 40 MG; Start 03/10/19 at 07:00 Senna (Senokot) 1 tab BID PRN PO CONSTIPATION; Start 03/10/19 at 04:30 Diagnostic Test (Pha) (Accu-Chek) 1 ea 02 XX ; Start 03/11/19 at 02:00 Insulin Aspart (Novolog Insulin Pen) NOVOLOG *MODERATE* ALGORITHM WITH MEALS BEDTIME SC ; Start 03/10/19 at 08:00 Insulin Glargine (Lantus) 14 units QHS SC ; Start 03/10/19 at 21:00 Albuterol/ Ipratropium (Duoneb) 3 ml Q6H RESP THERAPY NEB Last administered on 03/10/19at 07:33; Admin Dose 3 ML; Start 03/10/19 at 08:00 Furosemide (Lasix) 40 mg DAILY IV ; Start 03/11/19 at 09:00 Levofloxacin/ Dextrose 100 ml @ 100 mls/hr Q48H IVPB ; Start 03/12/19 at 06:30 Levofloxacin/ Dextrose 150 ml @ 150 mls/hr NOW IVPB Last administered on 03/10at 06:17; Admin Dose 150 MLS/HR; Start 03/10/19 at 06:30; Stop 03/10/19 at 14:00 Coded Allergies: lisinopril (Verified Allergy, Intermediate, 09/19/18) Patient cannot tolerate the lisinopril. patient coughs. Past Surgical History Past Surgical Hx: coronary bypass surgery Family History Significant Family History: heart disease, vascular disease Social History Alcohol Use: other Smoking Status: Unknown if ever smoked Drug Use: none Exam/Review of Systems Vital Signs Vitals Vital Signs Date Temp Pulse Resp B/P (MAP) Pulse Ox O2 O2 Flow FiO2 Time Delivery Rate 03/10/19 97.8 77 22 162/100 96 07:40 (120) 03/10/19 Nasal 3.0 07:34 Cannula 03/10/19 50 06:01 Exam Constitutional: other (Morbidly obese male lying in bed, on BiPAP. Able to follow commands) Head: normocephalic, atraumatic Eyes: PERRL Respiratory: diminished breath sounds Cardiovascular: regular rate and rhythm Gastrointestinal: soft Extremities: edema PAYAM LINDER MD Mar 10, 2019 08:28
--- NOTE | 2019-03-10 10:59 | CONS ---
Assessment/Plan Assessment/Plan Assessment/Plan (Daily) Chest x-ray showing significant cardiomegaly with pulmonary edema. Assessment and recommendations; 1. Patient with history of cardiomyopathy and chronic renal failure admitted for CHF exacerbation as well as worsening of chronic type II respiratory failure. Clinically improved on BiPAP as well as current treatment regimen. 2. Other comorbidities include history of chronic atrial fibrillation, prior CABG, hypertension and COPD. 3. Mild anemia and thrombocytopenia. Continue current supportive care. Continue BiPAP. 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 Consultation Date/Type/Reason Admit Date/Time Mar 10, 2019 at 00:54 Date of Consultation: Mar 10, 2019 Type of Consult Pulmonary/critical care Patient is a pleasant 53-year-old woman who came into the hospital with a few days history of increasing shortness of breath. Upon evaluation patient was diagnosed with recurrent CHF exacerbation as well as recurrent hypercapnic respiratory failure. Patient was started on BiPAP with significant improvement in symptoms. He denies any chest pain, wheezing, coughing, sputum production or any fever or chills. Past medical history; 1. History of morbid obesity. 2. COPD. 3. End-stage renal disease. 4. Cardiomyopathy with recurrent admissions for CHF exacerbation 5. Chronic hypercapnic respiratory failure. 6. Prior CABG. 7. History of systemic hypertension. 8. History of atrial fibrillation. Medications; reviewed. Allergies; lisinopril. Social history; smokes about a pack a day. Family history; he is single. Occupational history; patient is on disability. Review of systems; denies any headache, seizures, visual changes. Any dysphagia. Sore throat. Denies any chest pain, angina, shortness of breath has improved. Denies any coughing, sputum production hemoptysis. Any fever or chills. Denies any abdominal pain, nausea, vomiting. Any diarrhea or melena. Any constipation. Weight is steady. Does complain of daytime sleepiness and snoring. Denies any edema. Complains of chronic orthopnea. General exam; middle-aged male, morbidly obese. Awake and alert. Currently in no distress. Date/Time of Note DATE: 03/10/19 TIME: 10:55 Past Medical History Medical History: other Home Meds Active Scripts Mupirocin* (Bactroban*) 2% -22 Gram Oint...g., 1 APPLIC TOP BID for 5 Days Prov:HANNAH ONOFRE NP 12/11/18 Apixaban* (Eliquis*) 5 Mg Tablet, 5 MG PO BID for 30 Days, TAB Prov:HANNAH ONOFRE BUILDING CODE INSPECTOR 12/11/18 [Insulin Glargine] 100 UNITS/ML SOLN No Conflict Check, 14 UNITS SC HS for 30 Days Prov:HANNAH ONOFRE BUILDING CODE INSPECTOR 12/11/18 Insulin Aspart* (Novolog Insulin Pen*) 100 Unit/Ml Soln, 0 UNIT SC WITH MEALS BEDTIME for 30 Days Prov:JEMIMAHANNAH BUILDING CODE INSPECTOR 12/11/18 Carvedilol* (Carvedilol*) 12.5 Mg Tablet, 12.5 MG PO BID, #60 TAB Prov:HANNAH ONOFRE BUILDING CODE INSPECTOR 10/31/17 Reported Medications Sennosides* (Senokot*) 8.6 Mg Tablet, 1 TAB PO BID PRN for CONSTIPATION, TAB 09/19/18 Pantoprazole* (Pantoprazole*) 40 Mg Tablet.dr, 40 MG PO AC BREAKFAST, TAB 09/19/18 Cholecalciferol* (Vitamin D3*) 1,000 Unit Tablet, 1000 UNIT PO DAILY, TAB 09/19/18 Omeprazole* (Omeprazole*) 20 Mg Capsule.dr, 20 MG PO DAILY, #30 CAP 07/30/18 Gabapentin* (Gabapentin*) 100 Mg Capsule, 100 MG PO QHS, #90 CAP 04/07/18 Atorvastatin Calcium (Atorvastatin Calcium) 20 Mg Tablet, 20 MG PO QHS, #30 TAB 04/07/18 Ipratropium-Albuterol (Ipratropium-Albuterol) 0.5-3 Mg/3 Ml Ampul.neb, 3 ML INHALATION Q6 PRN for WHEEZING AND SOB, #30 VIAL 04/07/18 Losartan Potassium* (Losartan Potassium*) 25 Mg Tablet, 25 MG PO BID, TAB 04/07/18 Medications Current Medications IV Flush (NS 3 ml) 3 ml PER PROTOCOL IV ; Start 03/10/19 at 04:30 Ondansetron HCl (Zofran Inj) 4 mg Q6H PRN IV NAUSEA/VOMITING; Start 03/10/19 at 04:30 Nitroglycerin (Nitroglycerin (Sl Tab) 0.4 Mg) 1 tab Q5M PRN SL .CHEST PAIN; Start 03/10/19 at 04:30 Albuterol/ Ipratropium (Duoneb) 3 ml Q2H RESP THERAPY PRN HHN SHORTNESS OF BREATH; Start 03/10/19 at 04:30 Apixaban (Eliquis) 5 mg BID PO Last administered on 03/10/19at 08:04; Admin Dose 5 MG; Start 03/10/19 at 09:00 Atorvastatin Calcium (Lipitor) 20 mg QHS PO ; Start 03/10/19 at 21:00 Carvedilol (Coreg) 12.5 mg BID PO Last administered on 03/10/19at 08:05; Admin Dose 12.5 MG; Start 03/10/19 at 09:00 Cholecalciferol (Vitamin D) 1,000 unit DAILY PO Last administered on 03/10/19at 08:04; Admin Dose 1,000 UNIT; Start 03/10/19 at 09:00 Gabapentin (Neurontin) 100 mg QHS PO ; Start 03/10/19 at 21:00 Losartan Potassium (Cozaar) 25 mg BID PO ; Start 03/10/19 at 09:00 Pantoprazole (Protonix Tab) 40 mg AC BREAKFAST PO Last administered on 03/10/19at 06:16; Admin Dose 40 MG; Start 03/10/19 at 07:00 Senna (Senokot) 1 tab BID PRN PO CONSTIPATION; Start 03/10/19 at 04:30 Diagnostic Test (Pha) (Accu-Chek) 1 ea 02 XX ; Start 03/11/19 at 02:00 Insulin Aspart (Novolog Insulin Pen) NOVOLOG *MODERATE* ALGORITHM WITH MEALS BEDTIME SC ; Start 03/10/19 at 08:00 Insulin Glargine (Lantus) 14 units QHS SC ; Start 03/10/19 at 21:00 Albuterol/ Ipratropium (Duoneb) 3 ml Q6H RESP THERAPY NEB Last administered on 03/10/19at 07:33; Admin Dose 3 ML; Start 03/10/19 at 08:00 Furosemide (Lasix) 40 mg DAILY IV ; Start 03/11/19 at 09:00 Levofloxacin/ Dextrose 100 ml @ 100 mls/hr Q48H IVPB ; Start 03/12/19 at 06:30 Levofloxacin/ Dextrose 150 ml @ 150 mls/hr NOW IVPB Last administered on 7/16/19at 06:17; Admin Dose 150 MLS/HR; Start 03/10/19 at 06:30; Stop 03/10/19 at 14:00 Allergies: Coded Allergies: lisinopril (Verified Allergy, Intermediate, 09/19/18) Patient cannot tolerate the lisinopril. patient coughs. Past Surgical History Past Surgical Hx: coronary bypass surgery Social History Alcohol Use: other Smoking Status: Unknown if ever smoked Drug Use: none Exam/Review of Systems Exam Vitals Vital Signs Date Temp Pulse Resp B/P (MAP) Pulse Ox O2 O2 Flow FiO2 Time Delivery Rate 03/10/19 85 96 30 09:02 03/10/19 97.8 22 162/100 07:40 (120) 03/10/19 Nasal 3.0 07:34 Cannula Exam H EENT exam; supple neck, positive JVD. No lymphadenopathy. Midline trachea. No thyromegaly. Patient has fair dentition. No neck masses. Pupils are midsize. Chest exam; diminished breath sounds bilaterally. S1-S2 audible, no murmurs. Irregular rhythm. There is a well-healed sternal scar. Abdomen exam; protuberant. Nontender. Multiple well-healed scars are present. Bowel sounds audible. Organomegaly difficult to assess because of body habitus. Extremity exam; trace edema. Pulses 1+. No clubbing. CITY ENGINEER exam; no focal deficit. Results Result Diagram: 03/10/19 0429 03/10/19 0429 Results 24hrs Laboratory Tests Test 03/09/19 22:58 03/10/19 00:00 03/10/19 02:00 03/10/19 04:29 White Blood 8.1 # 7.3 Count Red Blood Count 3.40 L 3.48 L Hemoglobin 10.4 L 10.7 L Hematocrit 34.2 L 35.7 L Mean 100.6 102.6 H Corpuscular Volume Mean 30.6 30.7 Corpuscular Hemoglobin Mean 30.4 L 30.0 L Corpuscular Hemoglobin Conc ent Red Cell 15.9 H 16.3 H Distribution Width Platelet Count 149 # 141 Mean Platelet 10.9 H 11.8 H Volume Immature 0.400 0.400 Granulocytes % Neutrophils % 67.2 66.2 Lymphocytes % 16.5 17.1 Monocytes % 5.0 5.4 Eosinophils % 9.8 H 9.8 H Basophils % 1.1 1.1 Nucleated Red 0.0 0.0 Blood Cells % Immature 0.030 0.030 Granulocytes # Neutrophils # 5.5 4.8 Lymphocytes # 1.3 1.2 Monocytes # 0.4 0.4 Eosinophils # 0.8 H 0.7 H Basophils # 0.1 0.1 Nucleated Red 0.0 0.0 Blood Cells # Sodium Level 139 138 Potassium Level 5.6 H 5.8 H Chloride Level 98 97 Carbon Dioxide 25 28 Level Anion Gap 16 H 13 Blood Urea 70 H 75 H Nitrogen Creatinine 9.04 H 9.16 H Est Glomerular 6 L 6 L Filtrat Rate mL/min Glucose Level 182 122 # Calcium Level 9.6 9.8 Total Bilirubin 0.3 0.3 Direct 0.00 0.00 Bilirubin Indirect 0.3 0.3 Bilirubin Aspartate Amino 12 L 12 L Transf (AST/SGO T) Alanine 20 18 Aminotransferas e (ALT/SGPT) Alkaline 58 53 Phosphatase Troponin I 0.082 B-Type 90026 H Natriuretic Peptide Total Protein 7.4 7.3 Albumin 4.1 4.0 Globulin 3.30 H 3.30 H Albumin/Globuli 1.24 1.21 n Ratio Lipase 758 H Blood Gas Blood arterial Blood Specimen arterial Source Arterial Blood 03/10/2019 12:20 03/10/2019 2:32 Date Drawn :06 AM :17 AM Arterial Blood 7.216 *L 7.204 *L pH (Temp corrected ) Arterial Blood 61.6 H 68.3 H pCO2 (Temp correct) Arterial Blood 109.3 H 73.9 L pO2 (Temp corrected ) Arterial Blood 24.4 26.3 H HCO3 Arterial Blood -4.0 L -2.7 Base Excess Arterial Blood 97.0 92.1 L Oxygen Saturati on Luis Armando Test N/A ACCEPTAB Arterial Blood LB Left Radial Gas Puncture Site Arterial 2.7 2.5 Blood Carboxyhe moglobin Arterial Blood 0.1 0 Methemoglobin Blood Gas A-a 177.9 H 96.3 H O2 Differential Oxyhemoglobin 94.3 89.8 L Percent Blood Gas 37.0 37.0 Temperature Blood Gas 16.0 20.0 Respiration Rate Blood Gas 17 20 Actual Respiration Rat e Blood Gas MASK - BIPAP MASK - BIPAP Modality FiO2 50.0 35.0 Blood Gas 10 Pressure Support Blood Gas Zuly BAKER MD, M.D. Critical Value Read Back Blood Gas KM BR Notified Whom Blood Gas 03/10/2019 12:32 03/10/2019 2:37 Notified Time :59 AM :39 AM Blood Gas 20/8 IPAP/EPAP Ratio Magnesium Level 2.4 Test 03/10/19 04:30 03/10/19 07:26 Blood Gas Blood arterial Specimen Source Arterial Blood 03/10/2019 4:24: Date Drawn 44 AM Arterial Blood 7.222 *L pH (Temp corrected ) Arterial Blood 65.7 H pCO2 (Temp correct) Arterial Blood 61.3 L pO2 (Temp corrected ) Arterial Blood 26.4 H HCO3 Arterial Blood -2.3 Base Excess Arterial Blood 88.3 L Oxygen Saturati on Luis Armando Test ACCEPTAB Arterial Blood Right Radial Gas Puncture Site Arterial 2.1 Blood Carboxyhe moglobin Arterial Blood 0 Methemoglobin Blood Gas A-a 221.3 H O2 Differential Oxyhemoglobin 86.4 L Percent Blood Gas 37.0 Temperature Blood Gas 26.0 Respiration Rate Blood Gas 26 Actual Respiration Rat e Blood Gas MASK - BIPAP Modality FiO2 50.0 Blood Gas Tidal 578.0 Volume Blood Gas 22/8 IPAP/EPAP Ratio Blood Gas Vivienne. C RN Critical Value Read Back Blood Gas LT Notified Whom Blood Gas 03/10/2019 4:33: Notified Time 28 AM Creatine Kinase 66 Creatine Kinase 4.8 Index Creatinine 3.20 H Kinase MB (Mass) Troponin I 0.091 Bedside Glucose 139 Medications Medication Current Medications IV Flush (NS 3 ml) 3 ml PER PROTOCOL IV ; Start 03/10/19 at 04:30 Ondansetron HCl (Zofran Inj) 4 mg Q6H PRN IV NAUSEA/VOMITING; Start 03/10/19 at 04:30 Nitroglycerin (Nitroglycerin (Sl Tab) 0.4 Mg) 1 tab Q5M PRN SL .CHEST PAIN; Start 03/10/19 at 04:30 Albuterol/ Ipratropium (Duoneb) 3 ml Q2H RESP THERAPY PRN HHN SHORTNESS OF BREATH; Start 03/10/19 at 04:30 Apixaban (Eliquis) 5 mg BID PO Last administered on 03/10/19at 08:04; Admin Dose 5 MG; Start 03/10/19 at 09:00 Atorvastatin Calcium (Lipitor) 20 mg QHS PO ; Start 03/10/19 at 21:00 Carvedilol (Coreg) 12.5 mg BID PO Last administered on 03/10/19at 08:05; Admin Dose 12.5 MG; Start 03/10/19 at 09:00 Cholecalciferol (Vitamin D) 1,000 unit DAILY PO Last administered on 03/10/19at 08:04; Admin Dose 1,000 UNIT; Start 03/10/19 at 09:00 Gabapentin (Neurontin) 100 mg QHS PO ; Start 03/10/19 at 21:00 Losartan Potassium (Cozaar) 25 mg BID PO ; Start 03/10/19 at 09:00 Pantoprazole (Protonix Tab) 40 mg AC BREAKFAST PO Last administered on 03/10/19at 06:16; Admin Dose 40 MG; Start 03/10/19 at 07:00 Senna (Senokot) 1 tab BID PRN PO CONSTIPATION; Start 03/10/19 at 04:30 Diagnostic Test (Pha) (Accu-Chek) 1 ea 02 XX ; Start 03/11/19 at 02:00 Insulin Aspart (Novolog Insulin Pen) NOVOLOG *MODERATE* ALGORITHM WITH MEALS BEDTIME SC ; Start 03/10/19 at 08:00 Insulin Glargine (Lantus) 14 units QHS SC ; Start 03/10/19 at 21:00 Albuterol/ Ipratropium (Duoneb) 3 ml Q6H RESP THERAPY NEB Last administered on 03/10/19at 07:33; Admin Dose 3 ML; Start 03/10/19 at 08:00 Furosemide (Lasix) 40 mg DAILY IV ; Start 03/11/19 at 09:00 Levofloxacin/ Dextrose 100 ml @ 100 mls/hr Q48H IVPB ; Start 03/12/19 at 06:30 Levofloxacin/ Dextrose 150 ml @ 150 mls/hr NOW IVPB Last administered on 03/10/19at 06:17; Admin Dose 150 MLS/HR; Start 03/10/19 at 06:30; Stop 03/10/19 at 14:00 MARIE JEFFREY Mar 10, 2019 10:59
[2019-03-10] MEDS ORDERED: HEPARIN 1000 UNITS/ML 10 ML INJ CATHETER SCH (14:30)
--- NOTE | 2019-03-10 14:49 | QN ---
Documentation Comment pt seen and examined ARNULFO RICHTER MD Mar 10, 2019 14:49
--- NOTE | 2019-03-10 15:07 | PN ---
Date/Time of Note Date/Time of Note DATE: 03/10/19 TIME: 15:05 Assessment/Plan VTE Prophylaxis Risk score (from Nsg)>0 risk: 4 Pharmacological prophylaxis: heparin Lines/Catheters IV Catheter Type (from Nrsg): Permacath Urinary Cath still in place: No Assessment/Plan Hospital Course 1. Hypoxic and hypercapnic restorative failure, secondary to CHF exacerbation -Supplemental oxygen, as needed BiPAP -Diuresis -Continue cardiac meds 2. ESRD on HD: Nephrology consult appreciated 3. Ischemic cardiomyopathy with EF of 25% -See #1 4. Atrial fibrillation: Rate controlled -Continue cardiac meds including Eliquis 5. History of CAD with CABG: Continue cardiac meds 6. History of embolic stroke: Continue Eliquis 7. Diabetes: Insulin while in-house 8. Morbid obesity with a BMI of 40: Weight reduction will be reinforced throughout hospitalization 9. Hyperkalemia -Nephrology for dialysis Prophylaxis: Heparin Result Diagram: 03/10/19 0429 03/10/19 0429 Results 24hrs Laboratory Tests Test 03/09/19 22:58 03/10/19 00:00 03/10/19 02:00 03/10/19 04:29 White Blood 8.1 # 7.3 Count Red Blood Count 3.40 L 3.48 L Hemoglobin 10.4 L 10.7 L Hematocrit 34.2 L 35.7 L Mean 100.6 102.6 H Corpuscular Volume Mean 30.6 30.7 Corpuscular Hemoglobin Mean 30.4 L 30.0 L Corpuscular Hemoglobin Conc ent Red Cell 15.9 H 16.3 H Distribution Width Platelet Count 149 # 141 Mean Platelet 10.9 H 11.8 H Volume Immature 0.400 0.400 Granulocytes % Neutrophils % 67.2 66.2 Lymphocytes % 16.5 17.1 Monocytes % 5.0 5.4 Eosinophils % 9.8 H 9.8 H Basophils % 1.1 1.1 Nucleated Red 0.0 0.0 Blood Cells % Immature 0.030 0.030 Granulocytes # Neutrophils # 5.5 4.8 Lymphocytes # 1.3 1.2 Monocytes # 0.4 0.4 Eosinophils # 0.8 H 0.7 H Basophils # 0.1 0.1 Nucleated Red 0.0 0.0 Blood Cells # Sodium Level 139 138 Potassium Level 5.6 H 5.8 H Chloride Level 98 97 Carbon Dioxide 25 28 Level Anion Gap 16 H 13 Blood Urea 70 H 75 H Nitrogen Creatinine 9.04 H 9.16 H Est Glomerular 6 L 6 L Filtrat Rate mL/min Glucose Level 182 122 # Calcium Level 9.6 9.8 Total Bilirubin 0.3 0.3 Direct 0.00 0.00 Bilirubin Indirect 0.3 0.3 Bilirubin Aspartate Amino 12 L 12 L Transf (AST/SGO T) Alanine 20 18 Aminotransferas e (ALT/SGPT) Alkaline 58 53 Phosphatase Troponin I 0.082 B-Type 35068 H Natriuretic Peptide Total Protein 7.4 7.3 Albumin 4.1 4.0 Globulin 3.30 H 3.30 H Albumin/Globuli 1.24 1.21 n Ratio Lipase 758 H Blood Gas Blood arterial Blood Specimen arterial Source Arterial Blood 03/10/2019 12:20 03/10/2019 2:32 Date Drawn :06 AM :17 AM Arterial Blood 7.216 *L 7.204 *L pH (Temp corrected ) Arterial Blood 61.6 H 68.3 H pCO2 (Temp correct) Arterial Blood 109.3 H 73.9 L pO2 (Temp corrected ) Arterial Blood 24.4 26.3 H HCO3 Arterial Blood -4.0 L -2.7 Base Excess Arterial Blood 97.0 92.1 L Oxygen Saturati on Luis Armando Test N/A ACCEPTAB Arterial Blood LB Left Radial Gas Puncture Site Arterial 2.7 2.5 Blood Carboxyhe moglobin Arterial Blood 0.1 0 Methemoglobin Blood Gas A-a 177.9 H 96.3 H O2 Differential Oxyhemoglobin 94.3 89.8 L Percent Blood Gas 37.0 37.0 Temperature Blood Gas 16.0 20.0 Respiration Rate Blood Gas 17 20 Actual Respiration Rat e Blood Gas MASK - BIPAP MASK - BIPAP Modality FiO2 50.0 35.0 Blood Gas 10 Pressure Support Blood Gas Zuly BAKER MD, M.D. Critical Value Read Back Blood Gas SAMANTHA Notified Whom Blood Gas 03/10/2019 12:32 03/10/2019 2:37 Notified Time :59 AM :39 AM Blood Gas 20/8 IPAP/EPAP Ratio Magnesium Level 2.4 Hepatitis B NEGATIVE Surface Antigen Hepatitis B POSITIVE H Surface Antibody Test 03/10/19 04:30 03/10/19 07:26 03/10/19 11:34 03/10/19 11:40 Blood Gas Blood arterial Specimen Source Arterial Blood 03/10/2019 4:24: Date Drawn 44 AM Arterial Blood 7.222 *L pH (Temp corrected ) Arterial Blood 65.7 H pCO2 (Temp correct) Arterial Blood 61.3 L pO2 (Temp corrected ) Arterial Blood 26.4 H HCO3 Arterial Blood -2.3 Base Excess Arterial Blood 88.3 L Oxygen Saturati on Luis Armando Test ACCEPTAB Arterial Blood Right Radial Gas Puncture Site Arterial 2.1 Blood Carboxyhe moglobin Arterial Blood 0 Methemoglobin Blood Gas A-a 221.3 H O2 Differential Oxyhemoglobin 86.4 L Percent Blood Gas 37.0 Temperature Blood Gas 26.0 Respiration Rate Blood Gas 26 Actual Respiration Rat e Blood Gas MASK - BIPAP Modality FiO2 50.0 Blood Gas Tidal 578.0 Volume Blood Gas 22/8 IPAP/EPAP Ratio Blood Gas Vivienne. C RN Critical Value Read Back Blood Gas LT Notified Whom Blood Gas 03/10/2019 4:33: Notified Time 28 AM Creatine Kinase 66 59 Creatine Kinase 4.8 4.8 Index Creatinine 3.20 H 2.84 H Kinase MB (Mass) Troponin I 0.091 0.057 Bedside Glucose 139 139 Subjective 24 Hr Interval Summary Respiratory: shortness of breath Exam/Review of Systems Exam Vitals Vital Signs Date Temp Pulse Resp B/P (MAP) Pulse Ox O2 O2 Flow FiO2 Time Delivery Rate 03/10/19 69 14:45 03/10/19 26 135/76 95 BIPAP 13:30 (95) 03/10/19 30 13:21 03/10/19 97.4 12:04 03/10/19 3.0 07:34 Constitutional: alert Respiratory: clear to auscultation Cardiovascular: regular rate and rhythm Gastrointestinal: soft; No distended Musculoskeletal: nl extremities to inspection Results Results 24hrs Laboratory Tests Test 03/09/19 22:58 03/10/19 00:00 03/10/19 02:00 03/10/19 04:29 White Blood 8.1 # 7.3 Count Red Blood Count 3.40 L 3.48 L Hemoglobin 10.4 L 10.7 L Hematocrit 34.2 L 35.7 L Mean 100.6 102.6 H Corpuscular Volume Mean 30.6 30.7 Corpuscular Hemoglobin Mean 30.4 L 30.0 L Corpuscular Hemoglobin Conc ent Red Cell 15.9 H 16.3 H Distribution Width Platelet Count 149 # 141 Mean Platelet 10.9 H 11.8 H Volume Immature 0.400 0.400 Granulocytes % Neutrophils % 67.2 66.2 Lymphocytes % 16.5 17.1 Monocytes % 5.0 5.4 Eosinophils % 9.8 H 9.8 H Basophils % 1.1 1.1 Nucleated Red 0.0 0.0 Blood Cells % Immature 0.030 0.030 Granulocytes # Neutrophils # 5.5 4.8 Lymphocytes # 1.3 1.2 Monocytes # 0.4 0.4 Eosinophils # 0.8 H 0.7 H Basophils # 0.1 0.1 Nucleated Red 0.0 0.0 Blood Cells # Sodium Level 139 138 Potassium Level 5.6 H 5.8 H Chloride Level 98 97 Carbon Dioxide 25 28 Level Anion Gap 16 H 13 Blood Urea 70 H 75 H Nitrogen Creatinine 9.04 H 9.16 H Est Glomerular 6 L 6 L Filtrat Rate mL/min Glucose Level 182 122 # Calcium Level 9.6 9.8 Total Bilirubin 0.3 0.3 Direct 0.00 0.00 Bilirubin Indirect 0.3 0.3 Bilirubin Aspartate Amino 12 L 12 L Transf (AST/SGO T) Alanine 20 18 Aminotransferas e (ALT/SGPT) Alkaline 58 53 Phosphatase Troponin I 0.082 B-Type 61149 H Natriuretic Peptide Total Protein 7.4 7.3 Albumin 4.1 4.0 Globulin 3.30 H 3.30 H Albumin/Globuli 1.24 1.21 n Ratio Lipase 758 H Blood Gas Blood arterial Blood Specimen arterial Source Arterial Blood 03/10/2019 12:20 03/10/2019 2:32 Date Drawn :06 AM :17 AM Arterial Blood 7.216 *L 7.204 *L pH (Temp corrected ) Arterial Blood 61.6 H 68.3 H pCO2 (Temp correct) Arterial Blood 109.3 H 73.9 L pO2 (Temp corrected ) Arterial Blood 24.4 26.3 H HCO3 Arterial Blood -4.0 L -2.7 Base Excess Arterial Blood 97.0 92.1 L Oxygen Saturati on Luis Armando Test N/A ACCEPTAB Arterial Blood LB Left Radial Gas Puncture Site Arterial 2.7 2.5 Blood Carboxyhe moglobin Arterial Blood 0.1 0 Methemoglobin Blood Gas A-a 177.9 H 96.3 H O2 Differential Oxyhemoglobin 94.3 89.8 L Percent Blood Gas 37.0 37.0 Temperature Blood Gas 16.0 20.0 Respiration Rate Blood Gas 17 20 Actual Respiration Rat e Blood Gas MASK - BIPAP MASK - BIPAP Modality FiO2 50.0 35.0 Blood Gas 10 Pressure Support Blood Gas Zuly BAKER MD, M.D. Critical Value Read Back Blood Gas KM BR Notified Whom Blood Gas 03/10/2019 12:32 03/10/2019 2:37 Notified Time :59 AM :39 AM Blood Gas 20/8 IPAP/EPAP Ratio Magnesium Level 2.4 Hepatitis B NEGATIVE Surface Antigen Hepatitis B POSITIVE H Surface Antibody Test 03/10/19 04:30 03/10/19 07:26 03/10/19 11:34 03/10/19 11:40 Blood Gas Blood arterial Specimen Source Arterial Blood 03/10/2019 4:24: Date Drawn 44 AM Arterial Blood 7.222 *L pH (Temp corrected ) Arterial Blood 65.7 H pCO2 (Temp correct) Arterial Blood 61.3 L pO2 (Temp corrected ) Arterial Blood 26.4 H HCO3 Arterial Blood -2.3 Base Excess Arterial Blood 88.3 L Oxygen Saturati on Luis Armando Test ACCEPTAB Arterial Blood Right Radial Gas Puncture Site Arterial 2.1 Blood Carboxyhe moglobin Arterial Blood 0 Methemoglobin Blood Gas A-a 221.3 H O2 Differential Oxyhemoglobin 86.4 L Percent Blood Gas 37.0 Temperature Blood Gas 26.0 Respiration Rate Blood Gas 26 Actual Respiration Rat e Blood Gas MASK - BIPAP Modality FiO2 50.0 Blood Gas Tidal 578.0 Volume Blood Gas 22/8 IPAP/EPAP Ratio Blood Gas Vivienne. C RN Critical Value Read Back Blood Gas LT Notified Whom Blood Gas 03/10/2019 4:33: Notified Time 28 AM Creatine Kinase 66 59 Creatine Kinase 4.8 4.8 Index Creatinine 3.20 H 2.84 H Kinase MB (Mass) Troponin I 0.091 0.057 Bedside Glucose 139 139 Medications Medication Current Medications IV Flush (NS 3 ml) 3 ml PER PROTOCOL IV ; Start 03/10/19 at 04:30 Ondansetron HCl (Zofran Inj) 4 mg Q6H PRN IV NAUSEA/VOMITING; Start 03/10/19 at 04:30 Nitroglycerin (Nitroglycerin (Sl Tab) 0.4 Mg) 1 tab Q5M PRN SL .CHEST PAIN; Start 03/10/19 at 04:30 Albuterol/ Ipratropium (Duoneb) 3 ml Q2H RESP THERAPY PRN HHN SHORTNESS OF BREATH; Start 03/10/19 at 04:30 Apixaban (Eliquis) 5 mg BID PO Last administered on 03/10/19at 08:04; Admin Dose 5 MG; Start 03/10/19 at 09:00 Atorvastatin Calcium (Lipitor) 20 mg QHS PO ; Start 03/10/19 at 21:00 Carvedilol (Coreg) 12.5 mg BID PO Last administered on 03/10/19at 08:05; Admin Dose 12.5 MG; Start 03/10/19 at 09:00 Cholecalciferol (Vitamin D) 1,000 unit DAILY PO Last administered on 03/10/19at 08:04; Admin Dose 1,000 UNIT; Start 03/10/19 at 09:00 Losartan Potassium (Cozaar) 25 mg BID PO ; Start 03/10/19 at 09:00 Pantoprazole (Protonix Tab) 40 mg AC BREAKFAST PO Last administered on 03/10/19at 06:16; Admin Dose 40 MG; Start 03/10/19 at 07:00 Senna (Senokot) 1 tab BID PRN PO CONSTIPATION; Start 03/10/19 at 04:30 Diagnostic Test (Pha) (Accu-Chek) 1 ea 02 XX ; Start 03/11/19 at 02:00 Insulin Aspart (Novolog Insulin Pen) NOVOLOG *MODERATE* ALGORITHM WITH MEALS BEDTIME SC ; Start 03/10/19 at 08:00 Insulin Glargine (Lantus) 14 units QHS SC ; Start 03/10/19 at 21:00 Albuterol/ Ipratropium (Duoneb) 3 ml Q6H RESP THERAPY NEB Last administered on 03/10/19at 13:21; Admin Dose 3 ML; Start 03/10/19 at 08:00 Furosemide (Lasix) 40 mg DAILY IV ; Start 03/11/19 at 09:00 Levofloxacin/ Dextrose 100 ml @ 100 mls/hr Q48H IVPB ; Start 03/12/19 at 06:30 Heparin Sodium (Porcine) (Heparin (1000 Units/ml)) 4,300 unit AFTER DIALYSIS CATHETER ; Start 03/10/19 at 14:30 DEMETRI CUELLAR Mar 10, 2019 15:07
--- NOTE | 2019-03-10 15:58 | CONS ---
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 Continue BiPAP as needed, undergoing hemodialysis for fluid removal Beta-blockers heart rate and blood pressure permits ARB as blood pressure permits Continue anticoagulation if no contraindication Consultation Date/Type/Reason Admit Date/Time Mar 10, 2019 at 00:54 Type of Consult Cardiology Reason for Consultation Shortness of breath Date/Time of Note DATE: 03/10/19 TIME: 15:57 Hx of Present Illness This is a 53-year-old male well-known to me from previous admissions with history of respiratory failure status post decannulation, end-stage renal disease hemodialysis, CAD with history of CABG who presents with worsening shortness of breath of the past few days. Patient also with cough. Denies chest pain. Denies fevers or chills. Is unclear if he is been compliant with his medications, dialysis or low-sodium diet. Patient with history of noncompliance in the past. Unable to be performed current time given patient on BiPAP and falling asleep Past Medical History Atrial fibrillation Medical History: coronary artery disease, diabetes, hypertension, renal disease Home Meds Active Scripts Mupirocin* (Bactroban*) 2% -22 Gram Oint...g., 1 APPLIC TOP BID for 5 Days Prov:HANNAH ONOFRE NP 12/11/18 Apixaban* (Eliquis*) 5 Mg Tablet, 5 MG PO BID for 30 Days, TAB Prov:HANNAH ONOFRE NP 12/11/18 [Insulin Glargine] 100 UNITS/ML SOLN No Conflict Check, 14 UNITS SC HS for 30 Days Prov:HANNAH ONOFRE NP 12/11/18 Insulin Aspart* (Novolog Insulin Pen*) 100 Unit/Ml Soln, 0 UNIT SC WITH MEALS BEDTIME for 30 Days Prov:HANNAH ONOFRE NP 12/11/18 Carvedilol* (Carvedilol*) 12.5 Mg Tablet, 12.5 MG PO BID, #60 TAB Prov:HANNAH ONOFRE NP 10/31/17 Reported Medications Sennosides* (Senokot*) 8.6 Mg Tablet, 1 TAB PO BID PRN for CONSTIPATION, TAB 09/19/18 Pantoprazole* (Pantoprazole*) 40 Mg Tablet.dr, 40 MG PO AC BREAKFAST, TAB 09/19/18 Cholecalciferol* (Vitamin D3*) 1,000 Unit Tablet, 1000 UNIT PO DAILY, TAB 09/19/18 Omeprazole* (Omeprazole*) 20 Mg Capsule.dr, 20 MG PO DAILY, #30 CAP 07/30/18 Gabapentin* (Gabapentin*) 100 Mg Capsule, 100 MG PO QHS, #90 CAP 04/07/18 Atorvastatin Calcium (Atorvastatin Calcium) 20 Mg Tablet, 20 MG PO QHS, #30 TAB 04/07/18 Ipratropium-Albuterol (Ipratropium-Albuterol) 0.5-3 Mg/3 Ml Ampul.neb, 3 ML INHALATION Q6 PRN for WHEEZING AND SOB, #30 VIAL 04/07/18 Losartan Potassium* (Losartan Potassium*) 25 Mg Tablet, 25 MG PO BID, TAB 04/07/18 Medications Current Medications IV Flush (NS 3 ml) 3 ml PER PROTOCOL IV ; Start 03/10/19 at 04:30 Ondansetron HCl (Zofran Inj) 4 mg Q6H PRN IV NAUSEA/VOMITING; Start 03/10/19 at 04:30 Nitroglycerin (Nitroglycerin (Sl Tab) 0.4 Mg) 1 tab Q5M PRN SL .CHEST PAIN; Start 03/10/19 at 04:30 Albuterol/ Ipratropium (Duoneb) 3 ml Q2H RESP THERAPY PRN HHN SHORTNESS OF BREATH; Start 03/10/19 at 04:30 Apixaban (Eliquis) 5 mg BID PO Last administered on 03/10/19at 08:04; Admin Dose 5 MG; Start 03/10/19 at 09:00 Atorvastatin Calcium (Lipitor) 20 mg QHS PO ; Start 03/10/19 at 21:00 Carvedilol (Coreg) 12.5 mg BID PO Last administered on 03/10/19at 08:05; Admin Dose 12.5 MG; Start 03/10/19 at 09:00 Cholecalciferol (Vitamin D) 1,000 unit DAILY PO Last administered on 03/10/19at 08:04; Admin Dose 1,000 UNIT; Start 03/10/19 at 09:00 Losartan Potassium (Cozaar) 25 mg BID PO ; Start 03/10/19 at 09:00 Pantoprazole (Protonix Tab) 40 mg AC BREAKFAST PO Last administered on 03/10/19at 06:16; Admin Dose 40 MG; Start 03/10/19 at 07:00 Senna (Senokot) 1 tab BID PRN PO CONSTIPATION; Start 03/10/19 at 04:30 Diagnostic Test (Pha) (Accu-Chek) 1 ea 02 XX ; Start 03/11/19 at 02:00 Insulin Aspart (Novolog Insulin Pen) NOVOLOG *MODERATE* ALGORITHM WITH MEALS BEDTIME SC ; Start 03/10/19 at 08:00 Insulin Glargine (Lantus) 14 units QHS SC ; Start 03/10/19 at 21:00 Albuterol/ Ipratropium (Duoneb) 3 ml Q6H RESP THERAPY NEB Last administered on 03/10/19at 13:21; Admin Dose 3 ML; Start 03/10/19 at 08:00 Furosemide (Lasix) 40 mg DAILY IV ; Start 03/11/19 at 09:00 Levofloxacin/ Dextrose 100 ml @ 100 mls/hr Q48H IVPB ; Start 03/12/19 at 06:30 Heparin Sodium (Porcine) (Heparin (1000 Units/ml)) 4,300 unit AFTER DIALYSIS CATHETER ; Start 03/10/19 at 14:30 Allergies: Coded Allergies: lisinopril (Verified Allergy, Intermediate, 09/19/18) Patient cannot tolerate the lisinopril. patient coughs. Past Surgical History Past Surgical Hx: coronary bypass surgery Social History Alcohol Use: other Smoking Status: Unknown if ever smoked Drug Use: none Exam/Review of Systems Vital Signs Vitals Vital Signs Date Temp Pulse Resp B/P (MAP) Pulse Ox O2 O2 Flow FiO2 Time Delivery Rate 03/10/19 73 15:30 03/10/19 26 135/76 95 BIPAP 13:30 (95) 03/10/19 30 13:21 03/10/19 97.4 12:04 03/10/19 3.0 07:34 Exam Exam Sleeping but arousable, on BiPAP, undergoing hemodialysis Head: normocephalic Respiratory: other (Coarse breath sounds, scattered crackles, no wheezing) Cardiovascular: irregular rhythm (S1-S2 heard) Gastrointestinal: soft, non-tender, bowel sounds Extremities: edema Labs Result Diagram: 03/10/19 0429 03/10/19 0429 Results 24hrs Laboratory Tests Test 03/09/19 22:58 03/10/19 00:00 03/10/19 02:00 03/10/19 04:29 White Blood 8.1 # 7.3 Count Red Blood Count 3.40 L 3.48 L Hemoglobin 10.4 L 10.7 L Hematocrit 34.2 L 35.7 L Mean 100.6 102.6 H Corpuscular Volume Mean 30.6 30.7 Corpuscular Hemoglobin Mean 30.4 L 30.0 L Corpuscular Hemoglobin Conc ent Red Cell 15.9 H 16.3 H Distribution Width Platelet Count 149 # 141 Mean Platelet 10.9 H 11.8 H Volume Immature 0.400 0.400 Granulocytes % Neutrophils % 67.2 66.2 Lymphocytes % 16.5 17.1 Monocytes % 5.0 5.4 Eosinophils % 9.8 H 9.8 H Basophils % 1.1 1.1 Nucleated Red 0.0 0.0 Blood Cells % Immature 0.030 0.030 Granulocytes # Neutrophils # 5.5 4.8 Lymphocytes # 1.3 1.2 Monocytes # 0.4 0.4 Eosinophils # 0.8 H 0.7 H Basophils # 0.1 0.1 Nucleated Red 0.0 0.0 Blood Cells # Sodium Level 139 138 Potassium Level 5.6 H 5.8 H Chloride Level 98 97 Carbon Dioxide 25 28 Level Anion Gap 16 H 13 Blood Urea 70 H 75 H Nitrogen Creatinine 9.04 H 9.16 H Est Glomerular 6 L 6 L Filtrat Rate mL/min Glucose Level 182 122 # Calcium Level 9.6 9.8 Total Bilirubin 0.3 0.3 Direct 0.00 0.00 Bilirubin Indirect 0.3 0.3 Bilirubin Aspartate Amino 12 L 12 L Transf (AST/SGO T) Alanine 20 18 Aminotransferas e (ALT/SGPT) Alkaline 58 53 Phosphatase Troponin I 0.082 B-Type 85488 H Natriuretic Peptide Total Protein 7.4 7.3 Albumin 4.1 4.0 Globulin 3.30 H 3.30 H Albumin/Globuli 1.24 1.21 n Ratio Lipase 758 H Blood Gas Blood arterial Blood Specimen arterial Source Arterial Blood 03/10/2019 12:20 03/10/2019 2:32 Date Drawn :06 AM :17 AM Arterial Blood 7.216 *L 7.204 *L pH (Temp corrected ) Arterial Blood 61.6 H 68.3 H pCO2 (Temp correct) Arterial Blood 109.3 H 73.9 L pO2 (Temp corrected ) Arterial Blood 24.4 26.3 H HCO3 Arterial Blood -4.0 L -2.7 Base Excess Arterial Blood 97.0 92.1 L Oxygen Saturati on Luis Armando Test N/A ACCEPTAB Arterial Blood LB Left Radial Gas Puncture Site Arterial 2.7 2.5 Blood Carboxyhe moglobin Arterial Blood 0.1 0 Methemoglobin Blood Gas A-a 177.9 H 96.3 H O2 Differential Oxyhemoglobin 94.3 89.8 L Percent Blood Gas 37.0 37.0 Temperature Blood Gas 16.0 20.0 Respiration Rate Blood Gas 17 20 Actual Respiration Rat e Blood Gas MASK - BIPAP MASK - BIPAP Modality FiO2 50.0 35.0 Blood Gas 10 Pressure Support Blood Gas Zuly BAKER MD, M.D. Critical Value Read Back Blood Gas [facility] Notified Whom Blood Gas 03/10/2019 12:32 03/10/2019 2:37 Notified Time :59 AM :39 AM Blood Gas 20/8 IPAP/EPAP Ratio Magnesium Level 2.4 Hepatitis B NEGATIVE Surface Antigen Hepatitis B POSITIVE H Surface Antibody Test 03/10/19 04:30 03/10/19 07:26 03/10/19 11:34 03/10/19 11:40 Blood Gas Blood arterial Specimen Source Arterial Blood 03/10/2019 4:24: Date Drawn 44 AM Arterial Blood 7.222 *L pH (Temp corrected ) Arterial Blood 65.7 H pCO2 (Temp correct) Arterial Blood 61.3 L pO2 (Temp corrected ) Arterial Blood 26.4 H HCO3 Arterial Blood -2.3 Base Excess Arterial Blood 88.3 L Oxygen Saturati on Luis Armando Test ACCEPTAB Arterial Blood Right Radial Gas Puncture Site Arterial 2.1 Blood Carboxyhe moglobin Arterial Blood 0 Methemoglobin Blood Gas A-a 221.3 H O2 Differential Oxyhemoglobin 86.4 L Percent Blood Gas 37.0 Temperature Blood Gas 26.0 Respiration Rate Blood Gas 26 Actual Respiration Rat e Blood Gas MASK - BIPAP Modality FiO2 50.0 Blood Gas Tidal 578.0 Volume Blood Gas 22/8 IPAP/EPAP Ratio Blood Gas Vivienne. C RN Critical Value Read Back Blood Gas LT Notified Whom Blood Gas 03/10/2019 4:33: Notified Time 28 AM Creatine Kinase 66 59 Creatine Kinase 4.8 4.8 Index Creatinine 3.20 H 2.84 H Kinase MB (Mass) Troponin I 0.091 0.057 Bedside Glucose 139 139 Imaging Imaging ECG atrial fibrillation at 79 bpm, QRS 104 ms, nonspecific ST abnormalities Medications Medications Current Medications IV Flush (NS 3 ml) 3 ml PER PROTOCOL IV ; Start 03/10/19 at 04:30 Ondansetron HCl (Zofran Inj) 4 mg Q6H PRN IV NAUSEA/VOMITING; Start 03/10/19 at 04:30 Nitroglycerin (Nitroglycerin (Sl Tab) 0.4 Mg) 1 tab Q5M PRN SL .CHEST PAIN; Start 03/10/19 at 04:30 Albuterol/ Ipratropium (Duoneb) 3 ml Q2H RESP THERAPY PRN HHN SHORTNESS OF BREATH; Start 03/10/19 at 04:30 Apixaban (Eliquis) 5 mg BID PO Last administered on 03/10/19at 08:04; Admin Dose 5 MG; Start 03/10/19 at 09:00 Atorvastatin Calcium (Lipitor) 20 mg QHS PO ; Start 03/10/19 at 21:00 Carvedilol (Coreg) 12.5 mg BID PO Last administered on 03/10/19at 08:05; Admin Dose 12.5 MG; Start 03/10/19 at 09:00 Cholecalciferol (Vitamin D) 1,000 unit DAILY PO Last administered on 03/10/19at 08:04; Admin Dose 1,000 UNIT; Start 03/10/19 at 09:00 Losartan Potassium (Cozaar) 25 mg BID PO ; Start 03/10/19 at 09:00 Pantoprazole (Protonix Tab) 40 mg AC BREAKFAST PO Last administered on 03/10/19at 06:16; Admin Dose 40 MG; Start 03/10/19 at 07:00 Senna (Senokot) 1 tab BID PRN PO CONSTIPATION; Start 03/10/19 at 04:30 Diagnostic Test (Pha) (Accu-Chek) 1 ea 02 XX ; Start 03/11/19 at 02:00 Insulin Aspart (Novolog Insulin Pen) NOVOLOG *MODERATE* ALGORITHM WITH MEALS BEDTIME SC ; Start 03/10/19 at 08:00 Insulin Glargine (Lantus) 14 units QHS SC ; Start 03/10/19 at 21:00 Albuterol/ Ipratropium (Duoneb) 3 ml Q6H RESP THERAPY NEB Last administered on 03/10/19at 13:21; Admin Dose 3 ML; Start 03/10/19 at 08:00 Furosemide (Lasix) 40 mg DAILY IV ; Start 03/11/19 at 09:00 Levofloxacin/ Dextrose 100 ml @ 100 mls/hr Q48H IVPB ; Start 03/12/19 at 06:30 Heparin Sodium (Porcine) (Heparin (1000 Units/ml)) 4,300 unit AFTER DIALYSIS CATHETER ; Start 03/10/19 at 14:30 Ronald Grullon DO Mar 10, 2019 15:58
--- NOTE | 2019-03-10 17:05 | CONS ---
DATE OF ADMISSION: 03/10/2019 DATE OF CONSULTATION: 03/10/2019 REASON FOR ADMISSION: Shortness of breath. REASON FOR CONSULTATION: Hemodialysis. HISTORY OF PRESENT ILLNESS: A 53-year-old male with a past medical history of ischemic cardiomyopath y of 25%, end-stage renal disease on hemodialysis, coronary artery disease status post coronary arter y bypass, CVA, diabetes, presented to the Emergency Department complaining of shortness of breath, lo wer extremity swelling and distended abdomen and chest pain. Currently, unable to obtain any meaning ful history, as the patient is very altered on presentation to the ER. ABG showed a pH of 7.16, pCO2 61, pO2 of 106 and bicarbonate was 124. The patient was put on BiPAP and currently the patient is a ble to open eyes and tries to say yes or no. PHYSICAL EXAMINATION: VITAL SIGNS: Temperature is afebrile, blood pressure 135/50, saturating 95% on BiPAP. On admission, the labs showed potassium was 5.8, BUN of 75, creatinine 9.16. White count of 7.3, hemoglobin 10.7, platelet count 141 and the patient was admitted for further management. PAST MEDICAL HISTORY: 1. End-stage renal disease on hemodialysis for a year Saturday, and Saturday. 2. Hypertension. 3. Hyperlipidemia. 4. Coronary artery disease status post coronary artery bypass. 5. Morbid obesity. 6. Sleep apnea. 7. Anemia. ALLERGIES: LISINOPRIL. PAST SURGICAL HISTORY: The patient had a trach and G-tube placement and has a right Perm-A-Cath plac ement. The patient also had a fistula in the left arm which never worked. SOCIAL HISTORY: Unobtainable. MEDICATIONS: 1. Albuterol. 2. Atrovent. 3. Eliquis 5 b.i.d. 4. Atorvastatin 20. 5. Coreg 12.5 b.i.d. 6. Losartan 25 b.i.d. 7. Gabapentin 100. 8. Prilosec 20. 9. Pantoprazole 40, 10. Senna. 11. Insulin 12. Cholecalciferol. 13. Lantus 14. REVIEW OF SYSTEMS: The patient is currently very altered. FAMILY HISTORY: Unable to obtain any meaningful history. As per the records, the patient was having some shortness of breath; not sure the patient was going t o his dialysis center or not. PHYSICAL EXAMINATION: VITAL SIGNS: Currently, blood pressure 137/76, respiration 26, pulse 56, afebrile, on BiPAP. GENERAL: Patient opens eyes, nods yes or no, but has not been able to follow any commands. HEENT: Thick neck. HEART: Regular rate. LUNGS: Decreased breath sounds bilaterally. ABDOMEN: Soft, nontender, nondistended. EXTREMITIES: 2 to 3+ edema. LABORATORY DATA: Potassium 5.8, BUN of 75, creatinine 9.16. White count of 8.1, hemoglobin 10.4, p latelet count 149. The patient had a chest x-ray that showed small right pleural effusion, right bas ilar atelectasis, opacity left lower lobe unchanged. ASSESSMENT: This is a 53-year-old male who presented with: 1. Shortness of breath likely secondary to congestive heart failure. The patient end-stage renal di sease on hemodialysis, not sure about the compliance. 2. Hypoxic and hypercapnic respiratory failure. The patient also has possible underlying sleep apne a. 3. History of ischemic cardiomyopathy over 25%. 4. History of atrial fibrillation. 5. History of coronary artery disease status post coronary artery bypass graft. 6. Diabetes. 7. Morbid obesity. PLAN: At this period of time, the patient is admitted to tele. We will continue the patient on hemo dialysis. We will try to avoid any sedatives. The patient is currently on BiPAP. Recommending [facility]orie the ABG again. Rest of the treatment will depend on the patient's hospitalization course. Dictated By: ARNULFO ROLON/AUSTEN Conf#: [id number] DID#: [id number] CC: PAYAM LINDER MD;*EndCC*
[2019-03-10] MEDS: ATORVASTATIN 20 MG TAB PO SCH (20:07)
[2019-03-10] MEDS: INSULIN GLARGINE [LANTus] (100 UNITS/ML) SYG SC SCH (20:37)
[2019-03-10] MEDS ORDERED: GABAPENTIN 100 MG CAP PO SCH (21:00)
[2019-03-10] MEDS ORDERED: INSULIN GLARGINE 14 UNIT SC SCH (21:00)
[2019-03-11] VITALS (8 sets, daily range): BP systolic 100–144; BP diastolic 64–80; PULSE 58–90; RESP 18–20
[2019-03-11] MEDS ORDERED: ACCU-CHEK XX SCH (02:00)
[2019-03-11] MEDS: ALBUTEROL/IPRATROPIUM (NEB) 3 ML AMP NEB SCH ×4 (02:25→19:54)
[2019-03-11] MEDS: PANTOPRAZOLE (EC) 40 MG TAB PO SCH (07:00)
[2019-03-11] MEDS: INSULIN ASPART [NOVOLOG] 3 ML PEN SC SCH ×4 (08:00→21:00)
[2019-03-11] MEDS: CHOLECALCIFEROL 1,000 UNIT TAB PO SCH (08:40)
[2019-03-11] MEDS: APIXABAN 5 MG TABLET PO SCH ×2 (08:41→22:05)
[2019-03-11] MEDS: LOSARTAN 25 MG TAB PO SCH ×2 (08:42→22:04)
[2019-03-11] MEDS ORDERED: FUROSEMIDE 40 MG INJ IV SCH (09:00)
--- NOTE | 2019-03-11 11:13 | PDOCDIS ---
Discharge Instructions CONDITION [id number] Patient Condition: [id number] Good HOME CARE INSTRUCTIONS: [id number] Diet Instructions: [id number] Reduced Calorie [id number] Special Diet: [place]ui9e RENAL ACTIVITY: [id number] Activity Restrictions: [id number] No Restrictions FOLLOW UP/APPOINTMENTS Follow-up Plan FOLLOW UP WITH YOUR PCP AND HD CENTER SCHEDULED DEMETRI CUELLAR Mar 11, 2019 11:13
--- NOTE | 2019-03-11 11:31 | CONS ---
Consultation Date/Type/Reason Admit Date/Time Mar 10, 2019 at 00:54 Initial Consult Date 03/10/19 Type of Consult Pulmonary/critical care Patient is a pleasant 53-year-old woman who came into the hospital with a few days history of increasing shortness of breath. Upon evaluation patient was diagnosed with recurrent CHF exacerbation as well as recurrent hypercapnic respiratory failure. Patient was started on BiPAP with significant improvement in symptoms. He denies any chest pain, wheezing, coughing, sputum production or any fever or chills. Past medical history; 1. History of morbid obesity. 2. COPD. 3. End-stage renal disease. 4. Cardiomyopathy with recurrent admissions for CHF exacerbation 5. Chronic hypercapnic respiratory failure. 6. Prior CABG. 7. History of systemic hypertension. 8. History of atrial fibrillation. Medications; reviewed. Allergies; lisinopril. Social history; smokes about a pack a day. Family history; he is single. Occupational history; patient is on disability. Review of systems; denies any headache, seizures, visual changes. Any dysphagia. Sore throat. Denies any chest pain, angina, shortness of breath has improved. Denies any coughing, sputum production hemoptysis. Any fever or chills. Denies any abdominal pain, nausea, vomiting. Any diarrhea or melena. Any constipation. Weight is steady. Does complain of daytime sleepiness and snoring. Denies any edema. Complains of chronic orthopnea. General exam; middle-aged male, morbidly obese. Awake and alert. Currently in no distress. Date/Time of Note DATE: 03/11/19 TIME: 11:29 24 HR Interval Summary Free Text/Dictation Patient's condition is improving. Denies any shortness of breath at rest. General exam; middle-aged male, morbidly obese. Awake alert. Currently no distress. H EENT exam; supple neck, positive JVD. No lymphadenopathy. Midline trachea. No thyromegaly. Patient has fair dentition. Chest exam; diminished breath sounds bilaterally. No added sounds. S1-S2 audible, no murmurs. Irregular rhythm. There is a well-healed sternal scar. Abdomen exam; soft, protuberant. Bowel sounds audible. Nontender. Organomegaly difficult to assess due to body habitus. Extremity exam; chronic lower extremity skin changes without any edema. PULP ROLLER exam; no focal deficit. Assessment and plan: 1. Patient with history of underlying cardiomyopathy admitted for recurrent CHF exacerbation as well as hypercapnic respiratory failure with significant interval improvement. 2. Prior CABG. 3. Chronic atrial fibrillation. 4. Chronic renal failure, dialysis dependent. 5. Anemia of chronic disease. 6. Likely underlying sleep apnea. Continue current supportive care. Patient responding well to current treatment regimen. Dialysis per bi consultant. Exam/Review of Systems Exam Vitals Vital Signs Date Temp Pulse Resp B/P (MAP) Pulse Ox O2 O2 Flow FiO2 Time Delivery Rate 03/11/19 97.7 67 18 124/70 96 Nasal 2.0 11:14 (88) Cannula 03/11/19 30 05:52 Intake and Output 03/10/19 03/10/19 03/11/19 1515:00 23:00 07:00 IntakeIntake Total 200 ml 400 ml OutputOutput Total 300 ml 3350 ml BalanceBalance -100 ml -2950 ml Results Result Diagram: 03/11/19 0459 03/11/19 0459 Results 24hrs Laboratory Tests Test 03/10/19 11:34 03/10/19 11:40 03/10/19 16:58 03/10/19 20:11 Bedside Glucose 139 94 216 Creatine Kinase 59 Creatine Kinase 4.8 Index Creatinine Kinase 2.84 H MB (Mass) Troponin I 0.057 Test 03/11/19 01:55 03/11/19 04:59 03/11/19 07:00 03/11/19 07:40 Bedside Glucose 111 91 White Blood Count 8.3 Red Blood Count 2.94 L Hemoglobin 9.1 L Hematocrit 30.0 L Mean Corpuscular 102.0 H Volume Mean Corpuscular 31.0 Hemoglobin Mean Corpuscular 30.3 L Hemoglobin Concen t Red Cell 16.0 H Distribution Width Platelet Count 139 L Mean Platelet 11.8 H Volume Immature 0.200 Granulocytes % Neutrophils % 75.6 Lymphocytes % 14.5 L Monocytes % 5.6 Eosinophils % 3.4 Basophils % 0.7 Nucleated Red 0.0 Blood Cells % Immature 0.020 Granulocytes # Neutrophils # 6.3 Lymphocytes # 1.2 Monocytes # 0.5 Eosinophils # 0.3 Basophils # 0.1 Nucleated Red 0.0 Blood Cells # Sodium Level 139 Potassium Level 5.3 H Chloride Level 100 Carbon Dioxide 27 Level Anion Gap 12 Blood Urea 57 H Nitrogen Creatinine 7.78 H Est Glomerular 7 L Filtrat Rate mL/min Glucose Level 107 Calcium Level 9.1 Phosphorus Level 5.3 H Magnesium Level 2.2 Blood Gas Blood arterial Specimen Source Arterial Blood 03/11/2019 7:13:0 Date Drawn 2 AM Arterial Blood pH 7.367 (Temp corrected) Arterial Blood 47.6 H pCO2 (Temp correct) Arterial Blood 71.0 L pO2 (Temp corrected) Arterial Blood 26.7 H HCO3 Arterial Blood 1.0 Base Excess Arterial Blood 93.6 L Oxygen Saturation Luis Armando Test ACCEPTAB Arterial Blood Left Radial Gas Puncture Site Arterial 0.9 Blood Carboxyhemo globin Arterial Blood 0 Methemoglobin Blood Gas A-a O2 87.0 H Differential Oxyhemoglobin 92.8 L Percent Blood Gas 37.0 Temperature Blood Gas 18.0 Respiration Rate Blood Gas Actual 21 Respiration Rate Blood Gas MASK - BIPAP Modality FiO2 30.0 Blood Gas 13 Pressure Support Blood Gas 18/5 IPAP/EPAP Ratio Blood Gas TM Notified Whom Blood Gas 03/11/2019 7:25:5 Notified Time 8 AM Medications Medication Current Medications IV Flush (NS 3 ml) 3 ml PER PROTOCOL IV ; Start 03/10/19 at 04:30 Ondansetron HCl (Zofran Inj) 4 mg Q6H PRN IV NAUSEA/VOMITING; Start 03/10/19 at 04:30 Nitroglycerin (Nitroglycerin (Sl Tab) 0.4 Mg) 1 tab Q5M PRN SL .CHEST PAIN; Start 03/10/19 at 04:30 Albuterol/ Ipratropium (Duoneb) 3 ml Q2H RESP THERAPY PRN HHN SHORTNESS OF BREATH; Start 03/10/19 at 04:30 Apixaban (Eliquis) 5 mg BID PO Last administered on 03/11/19at 08:41; Admin Dose 5 MG; Start 03/10/19 at 09:00 Atorvastatin Calcium (Lipitor) 20 mg QHS PO Last administered on 03/10/19at 20:07; Admin Dose 20 MG; Start 03/10/19 at 21:00 Carvedilol (Coreg) 12.5 mg BID PO Last administered on 03/11/19at 08:41; Admin Dose 12.5 MG; Start 03/10/19 at 09:00 Cholecalciferol (Vitamin D) 1,000 unit DAILY PO Last administered on 03/11/19 08:40; Admin Dose 1,000 UNIT; Start 03/10/19 at 09:00 Losartan Potassium (Cozaar) 25 mg BID PO Last administered on 03/11/19 08:42; Admin Dose 25 MG; Start 03/10/19 at 09:00 Pantoprazole (Protonix Tab) 40 mg AC BREAKFAST PO Last administered on 03/10/19 06:16; Admin Dose 40 MG; Start 03/10/19 at 07:00 Senna (Senokot) 1 tab BID PRN PO CONSTIPATION; Start 03/10/19 at 04:30 Diagnostic Test (Pha) (Accu-Chek) 1 ea 02 XX Last administered on 03/11/19 01:55; Admin Dose 1 EA; Start 03/11/19 at 02:00 Insulin Aspart (Novolog Insulin Pen) NOVOLOG *MODERATE* ALGORITHM WITH MEALS BEDTIME SC Last administered on 03/10/19 20:37; Admin Dose 1 UNIT; Start 03/10/19 at 08:00 Insulin Glargine (Lantus) 14 units QHS SC Last administered on 03/10/19 20:37; Admin Dose 14 UNITS; Start 03/10/19 at 21:00 Albuterol/ Ipratropium (Duoneb) 3 ml Q6H RESP THERAPY NEB Last administered on 03/11/19 09:17; Admin Dose 3 ML; Start 03/10/19 at 08:00 Furosemide (Lasix) 40 mg DAILY IV Last administered on 03/11/19 08:42; Admin Dose 40 MG; Start 03/11/19 at 09:00 Levofloxacin/ Dextrose 100 ml @ 100 mls/hr Q48H IVPB ; Start 03/12/19 at 06:30 Heparin Sodium (Porcine) (Heparin (1000 Units/ml)) 4,300 unit AFTER DIALYSIS C ATHETER Last administered on 03/10/19 16:50; Admin Dose 4,300 UNIT; Start 03/10/19 at 14:30 MARIE JEFFREY Mar 11, 2019 11:31
--- NOTE | 2019-03-11 12:44 | DS ---
Date/Time of Note Date/Time of Note DATE: 03/11/19 TIME: 12:40 Discharge Summary Admission/Discharge Info Admit Date/Time Mar 10, 2019 at 00:54 Discharge Date/Time March 11, 2019 Discharge Diagnosis 1. Hypoxic and hypercapnic restorative failure, secondary to fluid overload from end-stage renal disease and CHF -Status post dialysis -Patient back to baseline respiratory status, patient uses home O2 at 2 L/min -Continue cardiac meds 2. ESRD on HD: Nephrology consult appreciated -Unclear if patient is compliant 3. Ischemic cardiomyopathy with EF of 25% -See #1 4. Atrial fibrillation: Rate controlled -Continue cardiac meds including Eliquis 5. History of CAD with CABG: Continue cardiac meds 6. History of embolic stroke: Continue Eliquis 7. Diabetes: Home regimen 8. Morbid obesity with a BMI of 40: Weight reduction advised 9. Hyperkalemia -Nephrology for dialysis Patient Condition: Good Hospital Course Patient is a 33-year-old male with a history of morbid obesity with diabetes, ischemic cardiomyopathy with an EF 25%, and stage renal disease on dialysis, A. fib, coronary disease. Patient presents with acute hypoxic and hypercapnic respiratory failure secondary to fluid overload and OHS. Patient improved with dialysis and BiPAP with ABG showing improvements in CO2 and improvements in hypoxia. Patient continued to require O2 at 2 L/min the patient does use home O2 at same rate. Patient stable for DC, the day of discharge patient vitals, labs of his exam are stable. Home Meds Active Scripts Mupirocin* (Bactroban*) 2% -22 Gram Oint...g., 1 APPLIC TOP BID for 5 Days Prov:HANNAH ONOFRE NP 12/11/18 Apixaban* (Eliquis*) 5 Mg Tablet, 5 MG PO BID for 30 Days, TAB Prov:HANNAH ONOFRE NP 12/11/18 [Insulin Glargine] 100 UNITS/ML SOLN No Conflict Check, 14 UNITS SC HS for 30 Days Prov:HANNAH ONOFRE NP 12/11/18 Insulin Aspart* (Novolog Insulin Pen*) 100 Unit/Ml Soln, 0 UNIT SC WITH MEALS BEDTIME for 30 Days Prov:HANNAH ONOFRE NP 12/11/18 Carvedilol* (Carvedilol*) 12.5 Mg Tablet, 12.5 MG PO BID, #60 TAB Prov:HANNAH ONOFRE DIRECTOR OF CONSTRUCTION 10/31/17 Reported Medications Sennosides* (Senokot*) 8.6 Mg Tablet, 1 TAB PO BID PRN for CONSTIPATION, TAB 09/19/18 Pantoprazole* (Pantoprazole*) 40 Mg Tablet.dr, 40 MG PO AC BREAKFAST, TAB 09/19/18 Cholecalciferol* (Vitamin D3*) 1,000 Unit Tablet, 1000 UNIT PO DAILY, TAB 09/19/18 Omeprazole* (Omeprazole*) 20 Mg Capsule.dr, 20 MG PO DAILY, #30 CAP 07/30/18 Gabapentin* (Gabapentin*) 100 Mg Capsule, 100 MG PO QHS, #90 CAP 04/07/18 Atorvastatin Calcium (Atorvastatin Calcium) 20 Mg Tablet, 20 MG PO QHS, #30 TAB 04/07/18 Ipratropium-Albuterol (Ipratropium-Albuterol) 0.5-3 Mg/3 Ml Ampul.neb, 3 ML INHALATION Q6 PRN for WHEEZING AND SOB, #30 VIAL 04/07/18 Losartan Potassium* (Losartan Potassium*) 25 Mg Tablet, 25 MG PO BID, TAB 04/07/18 Follow-up Plan FOLLOW UP WITH YOUR PCP AND HD CENTER SCHEDULED Primary Care Provider Not On Staff Doctor Time spent on discharge: > 30 minutes DEMETRI CUELLAR Mar 11, 2019 12:44
--- NOTE | 2019-03-11 13:22 | CONS ---
Assessment/Plan Assessment/Plan Assessment/Plan (Daily) ASSESSMENT: This is a 53-year-old male who presented with: 1. Shortness of breath likely secondary to congestive heart failure. The patient end-stage renal disease on hemodialysis, not sure about the compliance. 2. Hypoxic and hypercapnic respiratory failure. The patient also has possible underlying sleep apnea. 3. History of ischemic cardiomyopathy over 25%. 4. History of atrial fibrillation. 5. History of coronary artery disease status post coronary artery bypass graft. 6. Diabetes. 7. Morbid obesity. Plan - Renal diet with low k Diet - currently on 2 litres - HD TTS Consultation Date/Type/Reason Admit Date/Time Mar 10, 2019 at 00:54 Initial Consult Date 03/10/19 Date/Time of Note DATE: 03/11/19 TIME: 13:22 24 HR Interval Summary Free Text/Dictation Pt doing better today much awake,alert Exam/Review of Systems Exam Vitals Vital Signs Date Temp Pulse Resp B/P (MAP) Pulse Ox O2 O2 Flow FiO2 Time Delivery Rate 03/11/19 97.7 67 18 124/70 96 Nasal 2.0 11:14 (88) Cannula 03/11/19 30 05:52 Intake and Output 03/10/19 03/10/19 03/11/19 1515:00 23:00 07:00 IntakeIntake Total 200 ml 400 ml OutputOutput Total 300 ml 3350 ml BalanceBalance -100 ml -2950 ml Exam GENERAL: Awake,alert HEENT: Thick neck. HEART: Regular rate. LUNGS: Decreased breath sounds bilaterally. ABDOMEN: Soft, nontender, nondistended. EXTREMITIES: 2 to 3+ edema. Results Result Diagram: 03/11/19 0459 03/11/19 0459 Results 24hrs Laboratory Tests Test 03/10/19 16:58 03/10/19 20:11 03/11/19 01:55 03/11/19 04:59 Bedside Glucose 94 216 111 White Blood Count 8.3 Red Blood Count 2.94 L Hemoglobin 9.1 L Hematocrit 30.0 L Mean Corpuscular 102.0 H Volume Mean Corpuscular 31.0 Hemoglobin Mean Corpuscular 30.3 L Hemoglobin Concen t Red Cell 16.0 H Distribution Width Platelet Count 139 L Mean Platelet 11.8 H Volume Immature 0.200 Granulocytes % Neutrophils % 75.6 Lymphocytes % 14.5 L Monocytes % 5.6 Eosinophils % 3.4 Basophils % 0.7 Nucleated Red 0.0 Blood Cells % Immature 0.020 Granulocytes # Neutrophils # 6.3 Lymphocytes # 1.2 Monocytes # 0.5 Eosinophils # 0.3 Basophils # 0.1 Nucleated Red 0.0 Blood Cells # Sodium Level 139 Potassium Level 5.3 H Chloride Level 100 Carbon Dioxide 27 Level Anion Gap 12 Blood Urea 57 H Nitrogen Creatinine 7.78 H Est Glomerular 7 L Filtrat Rate mL/min Glucose Level 107 Calcium Level 9.1 Phosphorus Level 5.3 H Magnesium Level 2.2 Test 03/11/19 07:00 03/11/19 07:40 03/11/19 11:37 Blood Gas Blood arterial Specimen Source Arterial Blood 03/11/2019 7:13:0 Date Drawn 2 AM Arterial Blood pH 7.367 (Temp corrected) Arterial Blood 47.6 H pCO2 (Temp correct) Arterial Blood 71.0 L pO2 (Temp corrected) Arterial Blood 26.7 H HCO3 Arterial Blood 1.0 Base Excess Arterial Blood 93.6 L Oxygen Saturation Luis Armando Test ACCEPTAB Arterial Blood Left Radial Gas Puncture Site Arterial 0.9 Blood Carboxyhemo globin Arterial Blood 0 Methemoglobin Blood Gas A-a O2 87.0 H Differential Oxyhemoglobin 92.8 L Percent Blood Gas 37.0 Temperature Blood Gas 18.0 Respiration Rate Blood Gas Actual 21 Respiration Rate Blood Gas MASK - BIPAP Modality FiO2 30.0 Blood Gas 13 Pressure Support Blood Gas 18/5 IPAP/EPAP Ratio Blood Gas TM Notified Whom Blood Gas 03/11/2019 7:25:5 Notified Time 8 AM Bedside Glucose 91 161 Medications Medication Current Medications IV Flush (NS 3 ml) 3 ml PER PROTOCOL IV ; Start 03/10/19 at 04:30 Ondansetron HCl (Zofran Inj) 4 mg Q6H PRN IV NAUSEA/VOMITING; Start 03/10/19 at 04:30 Nitroglycerin (Nitroglycerin (Sl Tab) 0.4 Mg) 1 tab Q5M PRN SL .CHEST PAIN; Start 03/10/19 at 04:30 Albuterol/ Ipratropium (Duoneb) 3 ml Q2H RESP THERAPY PRN HHN SHORTNESS OF BREATH; Start 03/10/19 at 04:30 Apixaban (Eliquis) 5 mg BID PO Last administered on 03/11/19 08:41; Admin Dose 5 MG; Start 03/10/19 at 09:00 Atorvastatin Calcium (Lipitor) 20 mg QHS PO Last administered on 03/10/19 20:07; Admin Dose 20 MG; Start 03/10/19 at 21:00 Carvedilol (Coreg) 12.5 mg BID PO Last administered on 03/11/19 08:41; Admin Dose 12.5 MG; Start 03/10/19 at 09:00 Cholecalciferol (Vitamin D) 1,000 unit DAILY PO Last administered on 03/11/19 08:40; Admin Dose 1,000 UNIT; Start 03/10/19 at 09:00 Losartan Potassium (Cozaar) 25 mg BID PO Last administered on 03/11/19 08:42; Admin Dose 25 MG; Start 03/10/19 at 09:00 Pantoprazole (Protonix Tab) 40 mg AC BREAKFAST PO Last administered on 03/10/19 06:16; Admin Dose 40 MG; Start 03/10/19 at 07:00 Senna (Senokot) 1 tab BID PRN PO CONSTIPATION; Start 03/10/19 at 04:30 Diagnostic Test (Pha) (Accu-Chek) 1 ea 02 XX Last administered on 03/11/19 01:55; Admin Dose 1 EA; Start 03/11/19 at 02:00 Insulin Aspart (Novolog Insulin Pen) NOVOLOG *MODERATE* ALGORITHM WITH MEALS BEDTIME SC Last administered on 03/11/19 11:43; Admin Dose 2 UNIT; Start 03/10/19 at 08:00 Insulin Glargine (Lantus) 14 units QHS SC Last administered on 03/10/19 20:37; Admin Dose 14 UNITS; Start 03/10/19 at 21:00 Albuterol/ Ipratropium (Duoneb) 3 ml Q6H RESP THERAPY NEB Last administered on 03/11/19 09:17; Admin Dose 3 ML; Start 03/10/19 at 08:00 Furosemide (Lasix) 40 mg DAILY IV Last administered on 03/11/19 08:42; Admin Dose 40 MG; Start 03/11/19 at 09:00 Levofloxacin/ Dextrose 100 ml @ 100 mls/hr Q48H IVPB ; Start 7/18/19 at 06:30 Heparin Sodium (Porcine) (Heparin (1000 Units/ml)) 4,300 unit AFTER DIALYSIS CATHETER Last administered on 03/10/19at 16:50; Admin Dose 4,300 UNIT; Start 03/10/19 at 14:30 ARNULFO RICHTER MD Mar 11, 2019 13:22
--- NOTE | 2019-03-11 17:03 | CONS ---
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 Titrated off BiPAP Beta-blockers heart rate and blood pressure permits ARB as blood pressure permits Continue anticoagulation if no contraindication Consultation Date/Type/Reason Admit Date/Time Mar 10, 2019 at 00:54 Initial Consult Date 03/10/19 Type of Consult Cardiology Date/Time of Note DATE: 03/11/19 TIME: 17:01 24 HR Interval Summary Free Text/Dictation Feeling much better, denies shortness of breath, chest pain or palpitations Exam/Review of Systems Vital Signs Vitals Vital Signs Date Temp Pulse Resp B/P (MAP) Pulse Ox O2 O2 Flow FiO2 Time Delivery Rate 03/11/19 97.5 58 19 104/72 98 Nasal 2.0 15:35 (83) Cannula 03/11/19 30 05:52 Intake and Output 03/10/19 03/10/19 03/11/19 1515:00 23:00 07:00 IntakeIntake Total 200 ml 400 ml OutputOutput Total 300 ml 3350 ml BalanceBalance -100 ml -2950 ml Exam Constitutional: alert, oriented (No apparent distress) Head: normocephalic Respiratory: other (Coarse breath sounds bilaterally, no wheezing) Cardiovascular: irregular rhythm (S1-S2 heard) Gastrointestinal: soft, non-tender, bowel sounds Extremities: edema Labs Result Diagram: 03/11/19 0459 03/11/19 0459 Results 24hrs Laboratory Tests Test 03/10/19 20:11 03/11/19 01:55 03/11/19 04:59 03/11/19 07:00 Bedside Glucose 216 111 White Blood Count 8.3 Red Blood Count 2.94 L Hemoglobin 9.1 L Hematocrit 30.0 L Mean Corpuscular 102.0 H Volume Mean Corpuscular 31.0 Hemoglobin Mean Corpuscular 30.3 L Hemoglobin Concen t Red Cell 16.0 H Distribution Width Platelet Count 139 L Mean Platelet 11.8 H Volume Immature 0.200 Granulocytes % Neutrophils % 75.6 Lymphocytes % 14.5 L Monocytes % 5.6 Eosinophils % 3.4 Basophils % 0.7 Nucleated Red 0.0 Blood Cells % Immature 0.020 Granulocytes # Neutrophils # 6.3 Lymphocytes # 1.2 Monocytes # 0.5 Eosinophils # 0.3 Basophils # 0.1 Nucleated Red 0.0 Blood Cells # Sodium Level 139 Potassium Level 5.3 H Chloride Level 100 Carbon Dioxide 27 Level Anion Gap 12 Blood Urea 57 H Nitrogen Creatinine 7.78 H Est Glomerular 7 L Filtrat Rate mL/min Glucose Level 107 Calcium Level 9.1 Phosphorus Level 5.3 H Magnesium Level 2.2 Blood Gas Blood arterial Specimen Source Arterial Blood 03/11/2019 7:13:0 Date Drawn 2 AM Arterial Blood pH 7.367 (Temp corrected) Arterial Blood 47.6 H pCO2 (Temp correct) Arterial Blood 71.0 L pO2 (Temp corrected) Arterial Blood 26.7 H HCO3 Arterial Blood 1.0 Base Excess Arterial Blood 93.6 L Oxygen Saturation Luis Armando Test ACCEPTAB Arterial Blood Left Radial Gas Puncture Site Arterial 0.9 Blood Carboxyhemo globin Arterial Blood 0 Methemoglobin Blood Gas A-a O2 87.0 H Differential Oxyhemoglobin 92.8 L Percent Blood Gas 37.0 Temperature Blood Gas 18.0 Respiration Rate Blood Gas Actual 21 Respiration Rate Blood Gas MASK - BIPAP Modality FiO2 30.0 Blood Gas 13 Pressure Support Blood Gas 18/5 IPAP/EPAP Ratio Blood Gas TM Notified Whom Blood Gas 03/11/2019 7:25:5 Notified Time 8 AM Test 03/11/19 07:40 03/11/19 11:37 Bedside Glucose 91 161 Medications Medications Current Medications IV Flush (NS 3 ml) 3 ml PER PROTOCOL IV ; Start 03/10/19 at 04:30 Ondansetron HCl (Zofran Inj) 4 mg Q6H PRN IV NAUSEA/VOMITING; Start 03/10/19 at 04:30 Nitroglycerin (Nitroglycerin (Sl Tab) 0.4 Mg) 1 tab Q5M PRN SL .CHEST PAIN; Start 03/10/19 at 04:30 Albuterol/ Ipratropium (Duoneb) 3 ml Q2H RESP THERAPY PRN HHN SHORTNESS OF BREATH; Start 03/10/19 at 04:30 Apixaban (Eliquis) 5 mg BID PO Last administered on 03/11/19at 08:41; Admin Dose 5 MG; Start 03/10/19 at 09:00 Atorvastatin Calcium (Lipitor) 20 mg QHS PO Last administered on 03/10/19 20:07; Admin Dose 20 MG; Start 03/10/19 at 21:00 Carvedilol (Coreg) 12.5 mg BID PO Last administered on 03/11/19 08:41; Admin Dose 12.5 MG; Start 03/10/19 at 09:00 Cholecalciferol (Vitamin D) 1,000 unit DAILY PO Last administered on 03/11/19 08:40; Admin Dose 1,000 UNIT; Start 03/10/19 at 09:00 Losartan Potassium (Cozaar) 25 mg BID PO Last administered on 03/11/19 08:42; Admin Dose 25 MG; Start 03/10/19 at 09:00 Pantoprazole (Protonix Tab) 40 mg AC BREAKFAST PO Last administered on 03/10/19 06:16; Admin Dose 40 MG; Start 03/10/19 at 07:00 Senna (Senokot) 1 tab BID PRN PO CONSTIPATION; Start 03/10/19 at 04:30 Diagnostic Test (Pha) (Accu-Chek) 1 ea 02 XX Last administered on 03/11/19 01:55; Admin Dose 1 EA; Start 03/11/19 at 02:00 Insulin Aspart (Novolog Insulin Pen) NOVOLOG *MODERATE* ALGORITHM WITH MEALS BEDTIME SC Last administered on 03/11/19 11:43; Admin Dose 2 UNIT; Start 03/10/19 at 08:00 Insulin Glargine (Lantus) 14 units QHS SC Last administered on 03/10/19 20:37; Admin Dose 14 UNITS; Start 03/10/19 at 21:00 Albuterol/ Ipratropium (Duoneb) 3 ml Q6H RESP THERAPY NEB Last administered on 03/11/19 14:16; Admin Dose 3 ML; Start 03/10/19 at 08:00 Furosemide (Lasix) 40 mg DAILY IV Last administered on 03/11/19 08:42; Admin Dose 40 MG; Start 03/11/19 at 09:00 Levofloxacin/ Dextrose 100 ml @ 100 mls/hr Q48H IVPB ; Start 03/12/19 at 06:30 Heparin Sodium (Porcine) (Heparin (1000 Units/ml)) 4,300 unit AFTER DIALYSIS CATHETER Last administered on 03/10/19at 16:50; Admin Dose 4,300 UNIT; Start 03/10/19 at 14:30 Ronald Grullon DO Mar 11, 2019 17:03
[2019-03-11] MEDS: INSULIN GLARGINE [LANTus] (100 UNITS/ML) SYG SC SCH (21:00)
[2019-03-11] MEDS: ATORVASTATIN 20 MG TAB PO SCH (22:05)
[2019-03-12] MEDS ORDERED: LEVOFLOXACIN 500MG/D5W (PMX) 100 ML IVPB SCH (06:30)
== END 2019-03-11 21:52 | DRG 291 ==
LOC: E/R 22:34 → 6WM 03-10 00:54
PROVIDERS: ADMIT Internal Medicine; ATTEND Internal Medicine
DX: I13.2 Hypertensive heart and chronic kidney disease with heart failure and with stage 5 chronic kidney disease, or end stage renal disease (principal); I50.21 Acute systolic (congestive) heart failure; N18.6 End stage renal disease; J96.92 Respiratory failure, unspecified with hypercapnia; J96.91 Respiratory failure, unspecified with hypoxia; Z68.41 Body mass index [BMI] 40.0-44.9, adult; E11.22 Type 2 diabetes mellitus with diabetic chronic kidney disease; Z99.2 Dependence on renal dialysis; Z79.4 Long term (current) use of insulin; J44.9 Chronic obstructive pulmonary disease, unspecified; I25.10 Atherosclerotic heart disease of native coronary artery without angina pectoris; Z95.1 Presence of aortocoronary bypass graft; I48.2 Chronic atrial fibrillation; I25.5 Ischemic cardiomyopathy; E66.01 Morbid (severe) obesity due to excess calories; E87.5 Hyperkalemia; E78.5 Hyperlipidemia, unspecified; D63.8 Anemia in other chronic diseases classified elsewhere; G47.30 Sleep apnea, unspecified; Z79.01 Long term (current) use of anticoagulants; Z86.73 Personal history of transient ischemic attack (TIA), and cerebral infarction without residual deficits
CPT/HCPCS: 36415; 36600; 71045; 80048; 80053; 82550; 82553; 82803; 82962; 83690; 83735; 83880; 84100; 84484; 85025; 86706; 87340; 90935; 93005; 94640; 94660; 94664; J1644; J1815; J1940; J1956

== ENCOUNTER 2019-04-13 06:20 | Inpatient (IN) | payer MEDICARE, BC ==
[~2019-04-13] VITALS: Ht 180.3 cm; Wt 129.5 kg
[2019-04-13] VITALS (37 sets, daily range): BP systolic 87–146; BP diastolic 52–103; PULSE 79–107; RESP 16–30; Ht 180.3 cm; Wt 129.5 kg
[~2019-04-13 06:20] MED LIST changes: +ALLO300T2 PO; +FOLI-49 PO; +INSU100I27 SQ; +Ipratropium 0.02% (Neb) HHN; +LEVA1.25 HHN; +MECL-77 PO; +METO-335 PO; +SACU1TAB PO; +SEVE800T7 PO
[2019-04-13] MEDS ORDERED: ONDANSETRON 4 MG INJ IV PRN ×2 (08:30→11:30)
[2019-04-13] MEDS ORDERED: ACETAMINOPHEN 325 MG TAB PO PRN ×2 (08:30→11:30)
[2019-04-13] MEDS ORDERED: METHYLPREDNISOLONE 125 MG INJ IV STA (10:39)
[2019-04-13] MEDS ORDERED: ALBUTEROL 0.5% (NEB) 2.5 MG/0.5 ML AMP INH STA (10:39)
[2019-04-13] MEDS ORDERED: IPRATROPIUM (NEB) 0.5 MG/2.5 ML AMP INH STA (10:39)
[2019-04-13] MEDS ORDERED: MAGNESIUM SULFATE 2 GM/50 ML 50 ML IVPB ONE (11:00)
[2019-04-13] MEDS ORDERED: NACL 0.9% 3 ML SYG IV SCH (11:30)
[2019-04-13] MEDS: ALLOPURINOL 300 MG TAB PO SCH (12:30)
[2019-04-13] MEDS ORDERED: ALBUTEROL/IPRATROPIUM (NEB) 3 ML AMP HHN PRN (12:30)
[2019-04-13] MEDS ORDERED: ALBUTEROL/IPRATROPIUM (NEB) 3 ML AMP HHN SCH (13:00)
[2019-04-13] MEDS ORDERED: LOSARTAN 25 MG TAB PO SCH (13:00)
[2019-04-13] MEDS ORDERED: LEVALBUTEROL (NEB) 1.25 MG/0.5 ML AMP HHN PRN (14:00)
[2019-04-13] MEDS ORDERED: ALBUMIN HUMAN 25% 100 ML IV PRN (16:00)
[2019-04-13] MEDS ORDERED: ALTEPLASE (CATHFLO) 2 MG INJ CATHETER ONE (16:30)
[2019-04-13] MEDS: IPRATROPIUM (NEB) 0.5 MG/2.5 ML AMP HHN SCH ×2 (17:00→20:21)
[2019-04-13] MEDS: LEVALBUTEROL (NEB) 1.25 MG/0.5 ML AMP HHN SCH ×2 (17:00→20:21)
[2019-04-13] MEDS: INSULIN ASPART [NOVOLOG] 3 ML PEN SC SCH ×2 (17:06→20:53)
[2019-04-13] MEDS ORDERED: INSULIN ASPART [NOVOLOG] 3 ML PEN SC SCH (17:35)
[2019-04-13] MEDS: INSULIN GLARGINE [LANTus] (100 UNITS/ML) SYG SC SCH (20:53)
[2019-04-13] MEDS: FAMOTIDINE 20 MG INJ IV SCH (20:59)
[2019-04-13] MEDS: APIXABAN 5 MG TABLET PO SCH (21:00)
[2019-04-13] MEDS: ATORVASTATIN 20 MG TAB PO SCH (21:00)
[2019-04-14] VITALS (52 sets, daily range): BP systolic 84–157; BP diastolic 50–125; PULSE 75–102; RESP 15–31
[2019-04-14] MEDS: IPRATROPIUM (NEB) 0.5 MG/2.5 ML AMP HHN SCH ×6 (01:08→20:28)
[2019-04-14] MEDS: LEVALBUTEROL (NEB) 1.25 MG/0.5 ML AMP HHN SCH ×6 (01:08→20:27)
[2019-04-14] MEDS: ACCU-CHEK XX SCH (02:00)
[2019-04-14] MEDS ORDERED: DEXTROSE 50% 50 ML SYRINGE IV PRN ×2 (08:30)
[2019-04-14] MEDS ORDERED: GLUCOSE GEL 15 GRAM TUBE BUCCAL PRN (08:30)
[2019-04-14] MEDS ORDERED: GLUCAGON 1 MG INJ IM PRN (08:30)
[2019-04-14] MEDS ORDERED: INSULIN ASPART [NOVOLOG] 3 ML PEN SC SCH (08:30)
[2019-04-14] MEDS ORDERED: GLUCOSE GEL 15 GRAM TUBE PO PRN ×2 (08:30)
[2019-04-14] MEDS: FAMOTIDINE 20 MG INJ IV SCH ×2 (09:17→20:10)
[2019-04-14] MEDS: APIXABAN 5 MG TABLET PO SCH ×2 (09:17→20:10)
[2019-04-14] MEDS: FOLIC ACID 1 MG TAB PO SCH (09:17)
[2019-04-14] MEDS: METOPROLOL (XL) 25 MG TAB PO SCH (09:17)
[2019-04-14] MEDS: INSULIN ASPART [NOVOLOG] 3 ML PEN SC SCH ×4 (09:25→20:24)
[2019-04-14] MEDS ORDERED: HYDROCODONE/APAP (5/325) TAB PO PRN (09:30)
[2019-04-14] MEDS: ALLOPURINOL 300 MG TAB PO SCH (10:57)
[2019-04-14] MEDS ORDERED: HEPARIN 1000 UNITS/ML 10 ML INJ ONE (15:08)
[2019-04-14] MEDS ORDERED: HEPARIN 1000 UNITS/ML 10 ML INJ CATHETER PRN (16:00)
[2019-04-14] MEDS: ATORVASTATIN 20 MG TAB PO SCH (20:10)
[2019-04-14] MEDS: INSULIN GLARGINE [LANTus] (100 UNITS/ML) SYG SC SCH (20:25)
[2019-04-15] VITALS (28 sets, daily range): BP systolic 96–147; BP diastolic 63–118; PULSE 67–100; RESP 18–27
[2019-04-15] MEDS: LEVALBUTEROL (NEB) 1.25 MG/0.5 ML AMP HHN SCH ×6 (01:18→20:19)
[2019-04-15] MEDS: IPRATROPIUM (NEB) 0.5 MG/2.5 ML AMP HHN SCH ×6 (01:18→20:19)
[2019-04-15] MEDS: ACCU-CHEK XX SCH (02:00)
[2019-04-15] MEDS: INSULIN ASPART [NOVOLOG] 3 ML PEN SC SCH ×4 (08:00→20:30)
[2019-04-15] MEDS: METOPROLOL (XL) 25 MG TAB PO SCH (10:33)
[2019-04-15] MEDS: ALLOPURINOL 300 MG TAB PO SCH (10:33)
[2019-04-15] MEDS: APIXABAN 5 MG TABLET PO SCH ×2 (10:33→20:35)
[2019-04-15] MEDS: FOLIC ACID 1 MG TAB PO SCH (10:33)
[2019-04-15] MEDS: FAMOTIDINE 20 MG INJ IV SCH (10:33)
[2019-04-15] MEDS: ATORVASTATIN 20 MG TAB PO SCH (20:35)
[2019-04-15] MEDS: INSULIN GLARGINE [LANTus] (100 UNITS/ML) SYG SC SCH (20:35)
[2019-04-15] MEDS: SACUBITRIL/VALSARTAN (24mg-26mg) TABLET PO SCH (20:35)
[2019-04-16] VITALS (32 sets, daily range): BP systolic 111–158; BP diastolic 60–121; PULSE 69–100; RESP 15–23
[2019-04-16] MEDS: LEVALBUTEROL (NEB) 1.25 MG/0.5 ML AMP HHN SCH ×6 (00:50→20:20)
[2019-04-16] MEDS: IPRATROPIUM (NEB) 0.5 MG/2.5 ML AMP HHN SCH ×6 (00:51→20:20)
[2019-04-16] MEDS: ACCU-CHEK XX SCH (02:00)
[2019-04-16] MEDS: INSULIN ASPART [NOVOLOG] 3 ML PEN SC SCH ×4 (07:05→21:00)
[2019-04-16] MEDS: APIXABAN 5 MG TABLET PO SCH ×2 (08:25→21:34)
[2019-04-16] MEDS: FAMOTIDINE 20 MG TAB PO SCH (08:25)
[2019-04-16] MEDS: ALLOPURINOL 300 MG TAB PO SCH (08:25)
[2019-04-16] MEDS: FOLIC ACID 1 MG TAB PO SCH (08:26)
[2019-04-16] MEDS: HEPARIN 1000 UNITS/ML 10 ML INJ CATHETER SCH (11:15)
[2019-04-16] MEDS: METOPROLOL (XL) 25 MG TAB PO SCH (11:33)
[2019-04-16] MEDS: SACUBITRIL/VALSARTAN (24mg-26mg) TABLET PO SCH ×2 (11:33→21:33)
[2019-04-16] MEDS: MUPIROCIN 2% 22 GM OINT TOP SCH ×2 (18:17→21:38)
[2019-04-16] MEDS ORDERED: MUPIROCIN 2% 15 GM CR TOP SCH (21:00)
[2019-04-16] MEDS: ATORVASTATIN 20 MG TAB PO SCH (21:33)
[2019-04-16] MEDS: INSULIN GLARGINE [LANTus] (100 UNITS/ML) SYG SC SCH (22:07)
[2019-04-17] VITALS (11 sets, daily range): BP systolic 113–125; BP diastolic 61–88; PULSE 63–89; RESP 18–20
[2019-04-17] MEDS: LEVALBUTEROL (NEB) 1.25 MG/0.5 ML AMP HHN SCH ×6 (01:10→20:36)
[2019-04-17] MEDS: IPRATROPIUM (NEB) 0.5 MG/2.5 ML AMP HHN SCH ×6 (01:10→20:36)
[2019-04-17] MEDS: ACCU-CHEK XX SCH (02:00)
[2019-04-17] MEDS: INSULIN ASPART [NOVOLOG] 3 ML PEN SC SCH ×4 (07:00→21:00)
[2019-04-17] MEDS: MUPIROCIN 2% 22 GM OINT TOP SCH ×2 (09:00→20:51)
[2019-04-17] MEDS: METOPROLOL (XL) 25 MG TAB PO SCH (09:08)
[2019-04-17] MEDS: FOLIC ACID 1 MG TAB PO SCH (09:09)
[2019-04-17] MEDS: FAMOTIDINE 20 MG TAB PO SCH (09:09)
[2019-04-17] MEDS: APIXABAN 5 MG TABLET PO SCH ×2 (09:09→20:51)
[2019-04-17] MEDS: SACUBITRIL/VALSARTAN (24mg-26mg) TABLET PO SCH ×2 (09:09→20:51)
[2019-04-17] MEDS: ALLOPURINOL 300 MG TAB PO SCH (09:09)
[2019-04-17] MEDS: ATORVASTATIN 20 MG TAB PO SCH (20:51)
[2019-04-17] MEDS: INSULIN GLARGINE [LANTus] (100 UNITS/ML) SYG SC SCH (23:21)
[2019-04-18] VITALS (24 sets, daily range): BP systolic 84–144; BP diastolic 57–106; PULSE 53–98; RESP 17–20
[2019-04-18] MEDS: IPRATROPIUM (NEB) 0.5 MG/2.5 ML AMP HHN SCH ×6 (00:03→20:00)
[2019-04-18] MEDS: LEVALBUTEROL (NEB) 1.25 MG/0.5 ML AMP HHN SCH ×6 (00:03→20:00)
[2019-04-18] MEDS: ACCU-CHEK XX SCH (02:00)
[2019-04-18] MEDS: INSULIN ASPART [NOVOLOG] 3 ML PEN SC SCH ×3 (07:00→18:17)
[2019-04-18] MEDS: HEPARIN 1000 UNITS/ML 10 ML INJ CATHETER SCH (13:00)
[2019-04-18] MEDS: FOLIC ACID 1 MG TAB PO SCH (13:11)
[2019-04-18] MEDS: SEVELAMER CARBONATE 800 MG TABLET PO SCH ×2 (13:11→17:41)
[2019-04-18] MEDS: ALLOPURINOL 300 MG TAB PO SCH (13:12)
[2019-04-18] MEDS: SACUBITRIL/VALSARTAN (24mg-26mg) TABLET PO SCH ×2 (13:12→20:28)
[2019-04-18] MEDS: FAMOTIDINE 20 MG TAB PO SCH (13:13)
[2019-04-18] MEDS: APIXABAN 5 MG TABLET PO SCH ×2 (13:13→20:28)
[2019-04-18] MEDS: METOPROLOL (XL) 25 MG TAB PO SCH (13:14)
[2019-04-18] MEDS: MUPIROCIN 2% 22 GM OINT TOP SCH ×2 (13:15→20:28)
[2019-04-18] MEDS ORDERED: EPOETIN ALFA-EPBX (ESRD) 4,000 UNIT/ML VIAL SC SCH (17:00)
[2019-04-18] MEDS: ATORVASTATIN 20 MG TAB PO SCH (20:28)
[2019-04-18] MEDS: INSULIN GLARGINE [LANTus] (100 UNITS/ML) SYG SC SCH (22:38)
== END 2019-04-18 22:10 | disposition home health service (06) | DRG 291 ==
LOC: E/R 06:20 → ICU 12:13 → EDBEDREQ 12:13 → EDBEDREQSVC 12:13 → EDBEDREQ 13:57 → 6WM 04-16 18:31
PROVIDERS: ADMIT Internal Medicine; ATTEND Internal Medicine
PROC: 5A09557 Assistance with Respiratory Ventilation, Greater than 96 Consecutive Hours, Continuous Positive Airway Pressure (ICD-10-PCS; principal; 2019-04-13)
PROC: 4A133R1 Monitoring of Arterial Saturation, Peripheral, Percutaneous Approach (ICD-10-PCS; 2019-04-13)
PROC: 5A1D70Z Performance of Urinary Filtration, Intermittent, Less than 6 Hours Per Day (ICD-10-PCS; 2019-04-13)
DX: I13.2 Hypertensive heart and chronic kidney disease with heart failure and with stage 5 chronic kidney disease, or end stage renal disease (principal); I50.23 Acute on chronic systolic (congestive) heart failure; N18.6 End stage renal disease; J96.22 Acute and chronic respiratory failure with hypercapnia; J96.21 Acute and chronic respiratory failure with hypoxia; J44.1 Chronic obstructive pulmonary disease with (acute) exacerbation; E66.2 Morbid (severe) obesity with alveolar hypoventilation; G93.40 Encephalopathy, unspecified; E11.22 Type 2 diabetes mellitus with diabetic chronic kidney disease; E87.5 Hyperkalemia; Z68.39 Body mass index [BMI] 39.0-39.9, adult; E78.5 Hyperlipidemia, unspecified; I25.10 Atherosclerotic heart disease of native coronary artery without angina pectoris; I08.1 Rheumatic disorders of both mitral and tricuspid valves; D63.1 Anemia in chronic kidney disease; M10.9 Gout, unspecified; E83.39 Other disorders of phosphorus metabolism; I48.2 Chronic atrial fibrillation; D69.6 Thrombocytopenia, unspecified; I25.5 Ischemic cardiomyopathy; B95.62 Methicillin resistant Staphylococcus aureus infection as the cause of diseases classified elsewhere; Z99.2 Dependence on renal dialysis; Z95.1 Presence of aortocoronary bypass graft; Z79.01 Long term (current) use of anticoagulants; Z86.73 Personal history of transient ischemic attack (TIA), and cerebral infarction without residual deficits
CPT/HCPCS: 36415; 36600; 71045; 80048; 80053; 80061; 82550; 82553; 82607; 82652; 82746; 82803; 82962; 83036; 83540; 83605; 83735; 83880; 84100; 84484; 84560; 85025; 85610; 85730; 87081; 87340; 90935; 93005; 94640; 94644; 94660; 94664; 97162; J1644; J1815; J2930; J2997; J3475; P9047; Q5105